=== PATIENT | female | born 1955 | race Caucasian/White ===

== ENCOUNTER 2016-11-11 12:06 | Emergency (ER) | payer OTHER ==
[~2016-11-11] VITALS: Ht 157.5 cm; Wt 78.2 kg
[2016-11-11 12:10] VITALS: Ht 157.5 cm; Wt 78.2 kg
[2016-11-11] MEDS ORDERED: METF1000 PO (12:47)
[2016-11-11] MEDS ORDERED: SPIR50TA PO (12:48)
[2016-11-11] MEDS ORDERED: LANT3I SC (12:48)
[2016-11-11 12:52] LABS: BASOPHIL # 0.1 10^3/ul (0.0-0.1); BASOPHILS % 0.7 % (0.0-2.0); EOSINOPHILS % 0.5 % (0.0-7.0); HEMATOCRIT 35.2 % (37.0-47.0); HEMOGLOBIN 11.9 g/dl (12.0-16.0); LYMPHOCYTES # 2.4 10^3/ul (0.8-2.9); LYMPHOCYTES % 25.3 % (15.0-51.0); MEAN CORPUSCULAR HEMOGLOBIN 33.3 pg (29.0-33.0); MEAN CORPUSCULAR HGB CONC 33.9 g/dl (32.0-37.0); MEAN CORPUSCULAR VOLUME 98.3 fl (82.0-101.0); MEAN PLATELET VOLUME 8.8 fl (7.4-10.4); MONOCYTE # 0.6 10^3/ul (0.3-0.9); MONOCYTES % 6.8 % (0.0-11.0); NEUTROPHIL # 6.3 10^3/ul (1.6-7.5); NEUTROPHILS % 66.7 % (39.0-77.0); PLATELET COUNT 62 10^3/UL (140-440); RED BLOOD COUNT 3.58 10^6/ul (4.20-5.40); RED CELL DISTRIBUTION WIDTH 24.9 % (11.5-14.5); UNCORRECTED WBC 9.5 10^3/ul (4.8-10.8); WHITE BLOOD COUNT 9.5 10^3/ul (4.8-10.8)
[2016-11-11] MEDS ORDERED: PRED5 PO (12:54)
[2016-11-11 12:56] LABS: ALBUMIN 2.3 g/dl (3.3-4.9)
[2016-11-11 12:57] LABS: POTASSIUM 4.2 mmol/L (3.5-5.1); PROTIME 22.9 Sec (12.2-14.2); PT RATIO 1.8
[2016-11-11 12:58] LABS: PARTIAL THROMBOPLASTIN TIME 30.5 Sec (25.0-35.0)
[2016-11-11 12:59] LABS: ALBUMIN/GLOBULIN RATIO 0.57; BILIRUBIN,INDIRECT 1.8 mg/dl (0-1.1); BILIRUBIN,TOTAL 1.8 mg/dl (0.2-1.3); CREATININE 0.64 mg/dl (0.44-1.00); TOTAL PROTEIN 6.3 g/dl (6.1-8.1)
[2016-11-11 13:00] LABS: CALCIUM 8.8 mg/dl (8.4-10.2); CONDITION 1; LH ANALYZER COMMENTS 1
[2016-11-11 13:45] LABS: ANISOCYTOSIS 3+
[2016-11-11] MEDS ORDERED: LIDOCAINE 1% (MPF) 5 ML VIAL ONE (16:23)
--- NOTE | 2016-11-11 16:25 | RADRPT ---
PROCEDURE: Ultrasound guided paracentesis. CLINICAL INDICATION: Ascites and shortness of breath. COMPARISON: No prior studies are available for comparison. TECHNIQUE: The risks, benefits, and alternatives were explained to the patient and/or the patient's family, inc luding but not limited to bleeding, infection, pain, visceral or vascular damage, shock, and . The patient and/or the patient's family understood the risks and the alternatives and wished to pro ceed with the procedure. Informed written consent was obtained. A procedural time out was performed . The patient's name, date of , and procedure to be performed were verified. Utilizing ultrasound guidance, optimal location for entry to the peritoneal cavity was ascertained. The overlying skin was prepped and draped in the usual sterile fashion. Approximately 10 ml of 1% Xylocaine was injected locally for pain control. Using ultrasound guidance, an 8 [place] catheter wa s introduced into the peritoneal cavity in the right lower quadrant without difficulty. FINDINGS: Initial images demonstrate ascites. Approximately 3.0 liters of serous fluid was aspirated and sent for laboratory analysis. The patient tolerated the procedure well without complication. IMPRESSION: 1. Successful ultrasound-guided paracentesis. RPTAT: QQ .Robbie Geller MD, Date Time Electronically viewed and signed by .Robbie Geller MD, on 11/11/2016 16:25 .R/
--- NOTE | 2016-11-11 16:52 | ERA ---
ER Documentation Chief Complaint Date/Time DATE: 11/11/16 TIME: 16:51 Chief Complaint here for paracenthesis, has " liver pain" HPI 61-year-old female history of autoimmune hepatitis and cirrhosis now with ascites who presents for abdominal distention. Her last paracentesis was approximately 3 weeks ago. The patient has had worsening abdominal bloating. She was sent to the emergency room for paracentesis. She gets her care at an outside hospital. They would like to send her fluid for cell count to rule out SBP but the patient denies any fevers, chills, abdominal pain. The patient otherwise has no complaints. ROS All systems reviewed and are negative except as per history of present illness. Medications Home Meds Active Scripts Metformin* (Glucophage*) 500 Mg Tab, 500 MG PO BID for 30 Days, #60 TAB Prov:ANAIS BLEVINS MD 11/11/16 Reported Medications Prednisone* (Prednisone*) 5 Mg Tab, 0 PO DAILY, TAB STARTED 10-30-16 40MG FOR 1 WEEK THEN 30MG FOR 1 WEEK THEN 20MG FOR 1 WEEK THEN 17.5MG FOR 1 WEEK THEN 15MG FOR 1 WEEK THEN 12.5MG FOR 1 WEEK THEN 10MG FOR 1 WEEK ALL ARE DAILY DOSES 11/11/16 Spironolactone* (Aldactone*) 50 Mg Tablet, 50 MG PO DAILY, #30 TAB 11/11/16 Insulin Glargine* (Lantus*) 100 Unit/Ml Soln, 15 UNIT SC QAM, #1 VIAL 11/11/16 Metformin Hcl* (Metformin Hcl*) 1,000 Mg Tablet, 1000 MG PO WITH LUNCH, #30 TAB 11/11/16 Allergies Allergies: Coded Allergies: No Known Allergy (Unverified , 11/11/16) PMhx/Soc History of Surgery: Yes (, Apendectomy ) Anesthesia Reaction: No Hx Neurological Disorder: No Hx Respiratory Disorders: No Hx Cardiac Disorders: Yes (HTN) Hx Miscellaneous Medical Probl: Yes (Live failure, autoimmune ) Hx Alcohol Use: No Hx Substance Use: No Hx Tobacco Use: No Smoking Status: Never smoker FmHx Family History: No diabetes Physical Exam Vitals Vital Signs Date Time Temp Pulse Resp B/P Pulse Ox O2 Delivery O2 Flow Rate FiO2 11/11/16 16:53 97.9 79 18 116/76 100 Room Air 11/11/16 15:20 97.6 73 16 103/73 100 Room Air 11/11/16 12:10 98.1 85 18 126/64 99 Physical Exam General: Well developed, well nourished, no acute distress Head: Normocephalic, atraumatic. Eyes: Pupils equally reactive, EOM intact ENT: Moist mucous membranes Neck: Supple, no lymphadenopathy Respiratory: Lungs clear bilaterally, no distress Cardiovascular: RRR, no murmurs, rubs, or gallops Abdominal: Soft, protuberant with fluid wave, no tenderness no rebound or guarding : Deferred MSK: No edema, no unilateral swelling, 5/5 strength Neurologic: Alert and oriented, moving all extremities, normal speech, no focal weakness, no cerebellar signs Skin: No rash Psych: Normal mood Result Diagram: 11/11/16 1235 11/11/16 1235 Results 24 hrs Laboratory Tests Test 11/11/16 12:35 11/11/16 16:00 Activated Partial Thromboplast Time 30.5Sec Alanine Aminotransferase (ALT/SGPT) 80IU/L Albumin 2.3g/dl Albumin/Globulin Ratio 0.57 Alkaline Phosphatase 318IU/L Anion Gap 12 Anisocytosis 3+ Aspartate Amino Transf (AST/SGOT) 81IU/L Basophils # 0.110^3/ul Basophils % 0.7% Blood Morphology Comment Blood Urea Nitrogen 19mg/dl Calcium Level 8.8mg/dl Carbon Dioxide Level 31mmol/L Chloride Level 95mmol/L Creatinine 0.64mg/dl Direct Bilirubin 0.00mg/dl Eosinophils # 0.010^3/ul Eosinophils % 0.5% Globulin 4.00g/dl Glucose Level 333mg/dl Hematocrit 35.2% Hemoglobin 11.9g/dl INR International Normalized Ratio 2.00 Indirect Bilirubin 1.8mg/dl Large Platelets FEW Lymphocytes # 2.410^3/ul Lymphocytes % 25.3% Mean Corpuscular Hemoglobin 33.3pg Mean Corpuscular Hemoglobin Concent 33.9g/dl Mean Corpuscular Volume 98.3fl Mean Platelet Volume 8.8fl Monocytes # 0.610^3/ul Monocytes % 6.8% Neutrophils # 6.310^3/ul Neutrophils % 66.7% Nucleated Red Blood Cells # 0.010^3/ul Nucleated Red Blood Cells % 0.0/100WBC Platelet Count 6210^3/UL Potassium Level 4.2mmol/L Prothrombin Time 22.9Sec Prothrombin Time Ratio 1.8 Red Blood Count 3.5810^6/ul Red Cell Distribution Width 24.9% Sodium Level 134mmol/L Total Bilirubin 1.8mg/dl Total Protein 6.3g/dl White Blood Count 9.510^3/ul Body Fluid Appearance CLEAR Body Fluid Color YELLOW Body Fluid Eosinophils % 1% Body Fluid Lymphocytes (%) 37% Body Fluid Monocytes % 42% Body Fluid Neutrophils % 20% Body Fluid RBC Body Fluid Type ASCITES Body Fluid Volume 1200.0ml Body Fluid WBC 191/cmm Current Medications Medications (Trade) Dose Ordered Sig/Rohit Route PRN Reason Start Time Stop Time Status Last Admin Dose Admin Lidocaine (Xylocaine 1% (Mpf)) 5 ml STK-MED ONCE .ROUTE 11/11/16 16:23 11/11/16 16:24 DC 11/11/16 16:25 Procedures/MDM EKG, MONITORS, & DIAGNOSTIC IMAGING: Large volume therapeutic paracentesis performed by interventional radiology. Neutrophil count less than 250 LAB INTERPRETATION: No significant coagulopathy noted. We do not have baseline labs for this patient. MEDICAL DECISION MAKING: The patient presents with abdominal ascites likely secondary to cirrhosis. Patient does not exhibit any signs or symptoms concerning for complications of cirrhosis such as GI bleed, hepatic encephalopathy or spontaneous bacterial peritonitis. There is no indication currently for diagnostic paracentesis. The patient will benefit from large volume therapeutic paracentesis by interventional radiology. If the patient remains stable without evidence of hemodynamic compromise secondary to fluid shifts the patient can be safely discharged home with close primary care and hepatology follow-up. ER COURSE: The patient had successful large volume therapeutic paracentesis. The patient remained hemodynamically stable and otherwise well-appearing. The patient is safe for discharge home. Neutrophil count less than 250, no evidence of SBP. Laboratory testing was printed off for follow-up with her primary care provider. I kept the patient and/or family informed of laboratory and diagnostic imaging results throughout the emergency room course. DISPOSITION PLAN: We discussed follow up with the patient's primary care doctor within 24 to 48 hours as needed. We also discussed return to the emergency room for worsening symptoms or worsening condition. Discharge Medications: None Departure Diagnosis: Primary Impression: Ascites Qualified Code: R18.8 - Other ascites Additional Impression: Autoimmune hepatitis Condition: Stable BORM, ANAIS A., MD Nov 11, 2016 16:52
[2016-11-11 18:08] LABS: FLUID APPEARANCE CLEAR; FLUID TYPE ASCITES
[2016-11-11 18:09] LABS: FLUID EOSINOPHIL 1 %; FLUID LYMPHOCYTES 37 %; FLUID MONOCYTES 42 %; FLUID NEUTROPHILS 20 %; FLUID WBC'S 191 /cmm
[2016-11-11] MEDS ORDERED: METF500T4 PO (18:19)
[2016-11-11 18:41] VITALS: BP 146/74; PULSE 65; RESP 19; TEMP 98.6
== END 2016-11-11 18:42 | disposition home or self-care (01) ==
LOC: E/R 12:06 → FTE 18:42
DX: R18.8 Other ascites (principal); I10 Essential (primary) hypertension; K75.4 Autoimmune hepatitis; Z79.4 Long term (current) use of insulin; Z79.84 Long term (current) use of oral hypoglycemic drugs
CPT/HCPCS: 36415; 80053; 85025; 85610; 85730; 87070; 87102; 87116; 89050; Z7502; Z7610

== ENCOUNTER 2016-11-14 11:42 | Emergency (ER) | payer OTHER ==
[~2016-11-14] VITALS: Wt 74.0 kg
[~2016-11-14 11:42] MED LIST: LANT3I SC; METF1000 PO; METF500T4 PO; PRED5 PO; SPIR50TA PO
[2016-11-14 16:21] LABS: EOSINOPHILS % 0.5 % (0.0-7.0); HEMATOCRIT 44.3 % (37.0-47.0); LYMPHOCYTES # 1.2 10^3/ul (0.8-2.9); LYMPHOCYTES % 12.6 % (15.0-51.0); MEAN CORPUSCULAR HEMOGLOBIN 33.7 pg (29.0-33.0); MEAN CORPUSCULAR HGB CONC 33.8 g/dl (32.0-37.0); MEAN CORPUSCULAR VOLUME 99.6 fl (82.0-101.0); MEAN PLATELET VOLUME 10.1 fl (7.4-10.4); MONOCYTE # 0.5 10^3/ul (0.3-0.9); MONOCYTES % 5.5 % (0.0-11.0); NEUTROPHILS % 81.4 % (39.0-77.0); PLATELET COUNT 71 10^3/UL (140-440); RED BLOOD COUNT 4.45 10^6/ul (4.20-5.40); RED CELL DISTRIBUTION WIDTH 24.8 % (11.5-14.5); UNCORRECTED WBC 9.8 10^3/ul (4.8-10.8); WHITE BLOOD COUNT 9.8 10^3/ul (4.8-10.8)
[2016-11-14 16:26] LABS: CONDITION 1; LH ANALYZER COMMENTS 1; SUSPECT 1
[2016-11-14 16:30] LABS: ADD UMIC YES; URINE BILIRUBIN (Dip) NEGATIVE (NEGATIVE); URINE BLOOD (Dip) NEGATIVE (NEGATIVE); URINE COLOR YELLOW (YELLOW); URINE GLUCOSE (Dip) >=1000 % (NEGATIVE); URINE KETONES (Dip) NEGATIVE (NEGATIVE); URINE LEUKOCYTE ESTERASE (Dip) TRACE (NEGATIVE); URINE NITRITE (Dip) NEGATIVE (NEGATIVE); URINE TOTAL PROTEIN (Dip) NEGATIVE (NEGATIVE); URINE UROBILINOGEN (Dip) 1.0 E.U./dL (0.1-1.0)
[2016-11-14 16:35] VITALS: BP 135/80; PULSE 85; RESP 20; TEMP 97.7
[2016-11-14 16:36] LABS: INR 1.67; PARTIAL THROMBOPLASTIN TIME 27.9 Sec (25.0-35.0); PROTIME 19.8 Sec (12.2-14.2); PT RATIO 1.5
[2016-11-14 16:55] LABS: BACTERIA,URINE MODERATE; SQUAMOUS EPITHELIAL CELL,UR MANY
[2016-11-14 16:56] LABS: URINE RBCS 0-2 /HPF (0)
[2016-11-14 17:06] LABS: PLATELET ESTIMATE PLT APPEAR DECREASED
[2016-11-14 17:36] LABS: ALBUMIN 2.6 g/dl (3.3-4.9)
[2016-11-14 17:37] LABS: POTASSIUM 5.5 mmol/L (3.5-5.1)
[2016-11-14 17:39] LABS: ALBUMIN/GLOBULIN RATIO 0.57; BILIRUBIN,DIRECT 0.2 mg/dl (0.00-0.20); BILIRUBIN,INDIRECT 1.7 mg/dl (0-1.1); BILIRUBIN,TOTAL 1.9 mg/dl (0.2-1.3); CREATININE 0.64 mg/dl (0.44-1.00); TOTAL PROTEIN 7.1 g/dl (6.1-8.1)
--- NOTE | 2016-11-14 18:00 | ERD ---
ER Documentation Chief Complaint Date/Time DATE: 11/14/16 TIME: 17:58 Chief Complaint PARACENTISIS AND BILATERAL LEG SWELLING HPI This is a 61-year-old female who presents to the emergency room for evaluation of mild abdominal pain after receiving a paracentesis approximately 3 days ago. The patient did have a paracentesis done at [facility] and is complaining of pain over her paracentesis site with mild drainage of clear fluid. The patient denies any trauma to the area, denies any nausea or vomiting associated with this and came to the ER for evaluation. ROS All systems reviewed and are negative except as per history of present illness. Medications Home Meds Active Scripts Metformin* (Glucophage*) 500 Mg Tab, 500 MG PO BID for 30 Days, #60 TAB Prov:ANAIS BLEVINS MD 11/11/16 Reported Medications Prednisone* (Prednisone*) 5 Mg Tab, 0 PO DAILY, TAB STARTED 10-30-16 40MG FOR 1 WEEK THEN 30MG FOR 1 WEEK THEN 20MG FOR 1 WEEK THEN 17.5MG FOR 1 WEEK THEN 15MG FOR 1 WEEK THEN 12.5MG FOR 1 WEEK THEN 10MG FOR 1 WEEK ALL ARE DAILY DOSES 11/11/16 Spironolactone* (Aldactone*) 50 Mg Tablet, 50 MG PO DAILY, #30 TAB 11/11/16 Insulin Glargine* (Lantus*) 100 Unit/Ml Soln, 15 UNIT SC QAM, #1 VIAL 11/11/16 Discontinued Reported Medications Metformin Hcl* (Metformin Hcl*) 1,000 Mg Tablet, 1000 MG PO WITH LUNCH, #30 TAB 11/11/16 Allergies Allergies: Coded Allergies: No Known Allergy (Unverified , 11/14/16) PMhx/Soc History of Surgery: Yes (, Apendectomy ) Anesthesia Reaction: No Hx Neurological Disorder: No Hx Respiratory Disorders: No Hx Cardiac Disorders: Yes (HTN) Hx Psychiatric Problems: No Hx Miscellaneous Medical Probl: Yes (Live failure, autoimmune ) Hx Alcohol Use: No Hx Substance Use: No Hx Tobacco Use: No Smoking Status: Never smoker Physical Exam Vitals Vital Signs Date Time Temp Pulse Resp B/P Pulse Ox O2 Delivery O2 Flow Rate FiO2 11/14/16 16:35 97.7 85 20 135/80 98 Room Air 11/14/16 11:45 98.0 78 18 115/68 99 Physical Exam INITIAL VITAL SIGNS: Reviewed by me GENERAL: The patient is well developed and appropriate for usual state of health in no apparent distress HEENT: Pupils equal, round, and reactive to light. EOMI. There is no scleral icterus. NECK: C-spine is soft and supple, there is no meningismus. There is no cervical lymphadenopathy. LUNGS: Clear to auscultation bilaterally. There are no rales, wheezes or rhonchi. HEART: Regular rate and rhythm, no murmurs, clicks, rubs or gallops. ABDOMEN: Small puncture wound over right lateral abdomen, no active drainage, soft, non-tender, non-distended. There are bowel sounds in all four quadrants. No rebound or guarding. EXTREMITIES: There is no peripheral cyanosis or edema. No focal swelling or erythema. NEUROLOGICAL: The patient moves all four extremities with 5/5 strength. Cranial nerves II - XII are intact. Normal gait. Alert and oriented SKIN: There is no apparent rash or petechiae. HEME/LYMPHATIC: There is no evidence of excessive bruising or lymphedema. PSYCHIATRIC: The patient does not appear anxious or depressed. Result Diagram: 11/14/16 1606 11/14/16 1650 Results 24 hrs Laboratory Tests Test 11/14/16 16:00 11/14/16 16:06 11/14/16 16:50 Urine Amorphous Urates FEW Urine Bacteria MODERATE Urine Bilirubin NEGATIVE Urine Calcium Oxalate Crystals FEW Urine Clarity CLOUDY Urine Color YELLOW Urine Glucose >=1000% Urine Hemoglobin NEGATIVE Urine Ketones NEGATIVE Urine Leukocyte Esterase TRACE Urine Microscopic RBC 0-2/HPF Urine Microscopic WBC 5-10/HPF Urine Nitrite NEGATIVE Urine Specific [place] 1.020 Urine Squamous Epithelial Cells MANY Urine Total Protein NEGATIVE Urine Urobilinogen 1.0 E.U./dL Urine Yeast OCCASIONAL Urine pH 6.0 Activated Partial Thromboplast Time 27.9Sec Basophils # 0.010^3/ul Basophils % 0.0% Blood Morphology Comment Eosinophils # 0.010^3/ul Eosinophils % 0.5% Hematocrit 44.3% Hemoglobin 15.0g/dl INR International Normalized Ratio 1.67 Lymphocytes # 1.210^3/ul Lymphocytes % 12.6% Macrocytosis 1+ Mean Corpuscular Hemoglobin 33.7pg Mean Corpuscular Hemoglobin Concent 33.8g/dl Mean Corpuscular Volume 99.6fl Mean Platelet Volume 10.1fl Monocytes # 0.510^3/ul Monocytes % 5.5% Neutrophils # 8.010^3/ul Neutrophils % 81.4% Nucleated Red Blood Cells # 0.010^3/ul Nucleated Red Blood Cells % 0.0/100WBC Platelet Count 7110^3/UL Platelet Estimate PLT APPEAR DECREASED Prothrombin Time 19.8Sec Prothrombin Time Ratio 1.5 Red Blood Count 4.4510^6/ul Red Cell Distribution Width 24.8% White Blood Count 9.810^3/ul Alanine Aminotransferase (ALT/SGPT) 95IU/L Albumin 2.6g/dl Albumin/Globulin Ratio 0.57 Alkaline Phosphatase 323IU/L Anion Gap 21 Aspartate Amino Transf (AST/SGOT) 106IU/L Blood Urea Nitrogen 17mg/dl Calcium Level 9.0mg/dl Carbon Dioxide Level 27mmol/L Chloride Level 95mmol/L Creatinine 0.64mg/dl Direct Bilirubin 0.20mg/dl Globulin 4.50g/dl Glucose Level 340mg/dl Indirect Bilirubin 1.7mg/dl Lipase 215U/L Potassium Level 5.5mmol/L Sodium Level 137mmol/L Total Bilirubin 1.9mg/dl Total Protein 7.1g/dl Procedures/MDM This 61-year-old female presents to the emergency room for evaluation of drainage from the paracentesis incision site. There is no surrounding area of cellulitis. I did obtain lab work which shows slightly low platelets which could be inhibiting her healing time. I spoke to the patient and the patient's daughter in regards to this. They state that they do get follow-up with a client server programmer at [facility]. I advised him to follow-up with her client server programmer then.. Departure Diagnosis: Primary Impression: Thrombocytopenia Additional Impression: Abdominal pain Condition: Stable SAIDEBRA SCHULTE Nov 14, 2016 18:00
== END 2016-11-14 18:27 | disposition home or self-care (01) ==
LOC: E/R 11:42
DX: D69.6 Thrombocytopenia, unspecified (principal); I10 Essential (primary) hypertension; Z79.84 Long term (current) use of oral hypoglycemic drugs; Z79.4 Long term (current) use of insulin
CPT/HCPCS: 36415; 80053; 81001; 83690; 85025; 85610; 85730; Z7502; Z7610; 81003; 99283

== ENCOUNTER 2016-12-10 10:55 | Emergency (ER) | payer OTHER ==
[~2016-12-10] VITALS: Wt 67.0 kg
[~2016-12-10 10:55] MED LIST changes: -METF1000 PO
[2016-12-10] MEDS ORDERED: FAMOTIDINE 20 MG INJ IV STA (14:23)
[2016-12-10] MEDS ORDERED: morphine 4 MG/ML VIAL IV STA ×2 (14:23→16:52)
[2016-12-10] MEDS ORDERED: ONDANSETRON 4 MG INJ IV STA (14:23)
[2016-12-10] MEDS ORDERED: SOD CHLORIDE 0.9% 500 ML IV STA (14:23)
[2016-12-10] MEDS ORDERED: LANT3I SC (14:45)
[2016-12-10] MEDS ORDERED: PRED2.5T3 PO (14:45)
[2016-12-10] MEDS ORDERED: MYCO500T13 PO (14:46)
[2016-12-10] MEDS ORDERED: SPIR25TA PO (14:46)
[2016-12-10 15:55] LABS: ADD SCAN DIFF NO
[2016-12-10 15:57] LABS: ABNORMAL IP MESSAGE 1; HEMATOCRIT 39.3 % (37.0-47.0); HEMOGLOBIN 13.9 g/dl (12.0-16.0); MEAN CORPUSCULAR HEMOGLOBIN 34.4 pg (29.0-33.0); MEAN CORPUSCULAR HGB CONC 35.4 g/dl (32.0-37.0); MEAN CORPUSCULAR VOLUME 97.3 fl (82.0-101.0); MEAN PLATELET VOLUME 10.2 fl (7.4-10.4); PLATELET COUNT 83 10^3/UL (140-415); RED BLOOD COUNT 4.04 10^6/ul (4.20-5.40); RED CELL DISTRIBUTION WIDTH 16.7 % (11.5-14.5); WHITE BLOOD COUNT 7.8 10^3/ul (4.8-10.8)
[2016-12-10 16:04] LABS: ADD UMIC YES; URINE BILIRUBIN (Dip) 1+ (NEGATIVE); URINE BLOOD (Dip) NEGATIVE (NEGATIVE); URINE COLOR YELLOW (YELLOW); URINE GLUCOSE (Dip) NEGATIVE (NEGATIVE); URINE KETONES (Dip) TRACE (NEGATIVE); URINE LEUKOCYTE ESTERASE (Dip) 1+ (NEGATIVE); URINE NITRITE (Dip) NEGATIVE (NEGATIVE); URINE TOTAL PROTEIN (Dip) NEGATIVE (NEGATIVE); URINE UROBILINOGEN (Dip) 0.2 E.U./dL (0.1-1.0)
[2016-12-10 16:10] LABS: ALBUMIN 2.6 g/dl (3.3-4.9)
[2016-12-10 16:12] LABS: CREATININE 0.79 mg/dl (0.44-1.00)
[2016-12-10 16:13] LABS: ALBUMIN/GLOBULIN RATIO 0.65; BILIRUBIN,INDIRECT 1.5 mg/dl (0-1.1); BILIRUBIN,TOTAL 1.5 mg/dl (0.2-1.3); CALCIUM 9.3 mg/dl (8.4-10.2); TOTAL PROTEIN 6.6 g/dl (6.1-8.1)
[2016-12-10 16:15] LABS: ICTOTEST NEGATIVE (NEGATIVE); URINE RBCS NONE SEEN /HPF (0)
[2016-12-10 16:16] LABS: BACTERIA,URINE MANY; SQUAMOUS EPITHELIAL CELL,UR MANY
[2016-12-10 16:27] LABS: EOSINOPHILS # 0.1 10^3/ul (0.0-0.5); LYMPHOCYTES # 0.8 10^3/ul (0.8-2.9); MONOCYTE # 0.2 10^3/ul (0.3-0.9); NEUTROPHIL # 6.8 10^3/ul (1.6-7.5)
[2016-12-10 16:28] LABS: PLATELET ESTIMATE PLT APPEAR DECREASED
--- NOTE | 2016-12-10 16:41 | RADRPT ---
PROCEDURE: CT abdomen and pelvis without contrast. CLINICAL INDICATION: Abdominal pain and nausea. Recent paracentesis TECHNIQUE: CT scan of the abdomen and pelvis without contrast was performed. Sagittal and coronal reformatted images were obtained from the axial source images. CTDI = 15.50 mGy; DLP = 931.60 mGy-c m COMPARISON: None. FINDINGS: Visualized lower thorax: Minimal linear subsegmental atelectasis or scarring in the lung bases is p resent. There is no evidence for pleural effusion. Liver, gallbladder, pancreas and spleen: Markedly nodular contour to the liver with heterogeneous a ttenuation is compatible with cirrhosis, a few punctate benign granulomatous calcifications througho ut the liver parenchyma are present. There is no evidence for a liver mass or ductal dilatation. C holelithiasis and gallbladder sludge is present. No common bile duct abnormality is demonstrated. The pancreas is unremarkable. The spleen is normal in size. Adrenal glands and genitourinary system: The adrenal glands are normal bilaterally. The kidneys are normal and size, contour and attenuation with no evidence for masses, calculi or hydronephrosis. T he ureters are unremarkable. No urinary bladder abnormality is demonstrated. The uterus and adnexa are unremarkable. Gastrointestinal system: A moderate size sliding hiatal hernia is present with some borderline georges miryam wall thickening unable to exclude gastritis. The small bowel is normal in caliber with no ileus , obstruction or wall thickening. There is no evidence of appendicitis, the appendix is not well vis ualized. The colon shows no evidence for wall thickening or acute abnormality. There is no evidenc e for colitis or diverticulitis. Peritoneum, retroperitoneum, lymph nodes and vessels: The abdominal aorta is normal in caliber. The re is moderate aortic and iliac atherosclerotic calcification. The inferior vena cava is unremarkab le. There is no evidence for adenopathy or mass. A moderate amount of ascites is present, predomin antly the perihepatic and perisplenic and location but also in the dependent portion of the pelvis. There is no evidence of pneumoperitoneum. Benign calcifications within the common to less likely re lated to granulomatous disease. Osseous structures and musculoskeletal findings: There is no fracture, lytic or blastic lesion. Deg enerative spondylosis and disk disease of the lower thoracic levels as noted. No muscular abnormalit y or soft tissue pathology is present. Incidental calcified injection granulomata of the gluteal reg ions are seen. Anterior midline abdominal infraumbilical scarring is suggestive of prior surgery. RPTAT:HJJR IMPRESSION: 1. Pattern consistent with cirrhosis of the liver with associated moderate ascites. 2. Cholelithiasis without CT evidence of cholecystitis. 3. Atherosclerotic calcification of the abdominal aorta and iliac systems. Physician Elisabeth Date Time Electronically viewed and signed by Roge Yeung Physician on 12/10/2016 16:41 JR/
[2016-12-10] MEDS ORDERED: CEFTRIAXONE 1 GM/50 ML (PMX) 50 ML IVPB STA (16:52)
[2016-12-10 17:00] VITALS: BP 108/72; PULSE 84; RESP 10
[2016-12-10] MEDS ORDERED: METOCLOPRAMIDE 10 MG INJ IV ONE (17:00)
--- NOTE | 2016-12-10 17:24 | ERD ---
ER Documentation Chief Complaint Date/Time DATE: 12/10/16 TIME: 17:24 Chief Complaint ABD PAIN FOR THE PAST FEW DAYS WITH LOOSE STOOL AND ABD DISTENTION . HPI This 61-year-old female presents to the emergency room for evaluation of abdominal pain and cramping for the past 2 days with mild diarrhea and mild distention in her abdomen. This patient denies any fevers or chills or any type of chest pain or shortness of breath. The patient denies any chest pain or palpitations and came to the emergency room today for evaluation ROS All systems reviewed and are negative except as per history of present illness. Medications Home Meds Active Scripts Ondansetron Hcl* (Zofran*) 4 Mg Tablet, 4 MG PO Q8, #10 TAB Prov:DEBRA GIBBS DO 12/10/16 Ciprofloxacin Hcl* (Ciprofloxacin Hcl*) 500 Mg Tablet, 500 MG PO BID, #14 TAB Prov:DEBRA GIBBS DO 12/10/16 Metformin* (Glucophage*) 500 Mg Tab, 500 MG PO BID for 30 Days, #60 TAB Prov:ANAIS BLEVINS MD 11/11/16 Reported Medications Mycophenolate Mofetil* (Cellcept*) 500 Mg Tablet, 500 MG PO DAILY, #60 TAB 12/10/16 Spironolactone* (Aldactone*) 25 Mg Tablet, 25 MG PO DAILY, #30 TAB 12/10/16 Prednisone* (Prednisone*) 2.5 Mg Tablet, 17.5 MG PO DAILY, TAB 12/10/16 Insulin Glargine* (Lantus*) 100 Unit/Ml Soln, 20 UNIT SC DAILY, #1 VIAL 12/10/16 Discontinued Reported Medications Prednisone* (Prednisone*) 5 Mg Tab, 0 PO DAILY, TAB STARTED 10-30-16 40MG FOR 1 WEEK THEN 30MG FOR 1 WEEK THEN 20MG FOR 1 WEEK THEN 17.5MG FOR 1 WEEK THEN 15MG FOR 1 WEEK THEN 12.5MG FOR 1 WEEK THEN 10MG FOR 1 WEEK ALL ARE DAILY DOSES 11/11/16 Spironolactone* (Aldactone*) 50 Mg Tablet, 50 MG PO DAILY, #30 TAB 11/11/16 Allergies Allergies: Coded Allergies: No Known Allergy (Unverified , 12/10/16) PMhx/Soc History of Surgery: Yes (, Apendectomy ) Anesthesia Reaction: No Hx Neurological Disorder: No Hx Respiratory Disorders: No Hx Cardiac Disorders: Yes (HTN) Hx Psychiatric Problems: No Hx Miscellaneous Medical Probl: Yes (Live failure, autoimmune ) Hx Alcohol Use: No Hx Substance Use: No Hx Tobacco Use: No Smoking Status: Never smoker Physical Exam Vitals Vital Signs Date Time Temp Pulse Resp B/P Pulse Ox O2 Delivery O2 Flow Rate FiO2 12/10/16 17:00 84 10 108/72 97 12/10/16 14:57 89 16 109/70 97 Room Air 12/10/16 11:06 98.9 112 20 108/70 98 Physical Exam INITIAL VITAL SIGNS: Reviewed by me GENERAL: The patient is well developed and appropriate for usual state of health in no apparent distress HEENT: Pupils equal, round, and reactive to light. EOMI. There is no scleral icterus. NECK: C-spine is soft and supple, there is no meningismus. There is no cervical lymphadenopathy. LUNGS: Clear to auscultation bilaterally. There are no rales, wheezes or rhonchi. HEART: Regular rate and rhythm, no murmurs, clicks, rubs or gallops. ABDOMEN: Suprapubic tenderness to palpation, otherwise soft, non-tender, non- distended. There are bowel sounds in all four quadrants. No rebound or guarding. EXTREMITIES: There is no peripheral cyanosis or edema. No focal swelling or erythema. NEUROLOGICAL: The patient moves all four extremities with 5/5 strength. Cranial nerves II - XII are intact. Normal gait. Alert and oriented SKIN: There is no apparent rash or petechiae. HEME/LYMPHATIC: There is no evidence of excessive bruising or lymphedema. PSYCHIATRIC: The patient does not appear anxious or depressed. Result Diagram: 12/10/16 1545 12/10/16 1545 Results 24 hrs Laboratory Tests Test 12/10/16 15:45 Alanine Aminotransferase (ALT/SGPT) 77IU/L Albumin 2.6g/dl Albumin/Globulin Ratio 0.65 Alkaline Phosphatase 193IU/L Anion Gap 19 Aspartate Amino Transf (AST/SGOT) 68IU/L Blood Urea Nitrogen 19mg/dl Calcium Level 9.3mg/dl Carbon Dioxide Level 30mmol/L Chloride Level 87mmol/L Creatinine 0.79mg/dl Direct Bilirubin 0.00mg/dl Eosinophils # 0.110^3/ul Eosinophils % 1.0% Globulin 4.00g/dl Glucose Level 130mg/dl Hematocrit 39.3% Hemoglobin 13.9g/dl Indirect Bilirubin 1.5mg/dl Lipase 85U/L Lymphocytes # 0.810^3/ul Lymphocytes % 10.0% Mean Corpuscular Hemoglobin 34.4pg Mean Corpuscular Hemoglobin Concent 35.4g/dl Mean Corpuscular Volume 97.3fl Mean Platelet Volume 10.2fl Monocytes # 0.210^3/ul Monocytes % 2.0% Neutrophils # 6.810^3/ul Neutrophils % 87.0% Platelet Count 8310^3/UL Platelet Estimate PLT APPEAR DECREASED Potassium Level 4.0mmol/L Red Blood Count 4.0410^6/ul Red Cell Distribution Width 16.7% Sodium Level 132mmol/L Total Bilirubin 1.5mg/dl Total Protein 6.6g/dl Urine Bacteria MANY Urine Bilirubin 1+ Urine Clarity [place] CLOUDY Urine Color YELLOW Urine Glucose NEGATIVE% Urine Hemoglobin NEGATIVE Urine Ictotest NEGATIVE Urine Ketones TRACE Urine Leukocyte Esterase 1+ Urine Microscopic RBC NONE SEEN/HPF Urine Microscopic WBC 25-50/HPF Urine Nitrite NEGATIVE Urine Specific [place] 1.020 Urine Squamous Epithelial Cells MANY Urine Total Protein NEGATIVE Urine Urobilinogen 0.2 E.U./dL Urine pH 5.5 White Blood Count 7.810^3/ul Current Medications Medications (Trade) Dose Ordered Sig/Rohit Route PRN Reason Start Time Stop Time Status Last Admin Dose Admin Sodium Chloride (NS) 500 ml @ 500 mls/hr Q1H STAT IV 12/10/16 14:23 12/10/16 15:22 DC 12/10/16 16:31 Morphine Sulfate (morphine) 4 mg ONCE STAT IV 12/10/16 14:23 12/10/16 14:24 DC 12/10/16 15:30 Ondansetron HCl (Zofran Inj) 4 mg ONCE STAT IV 12/10/16 14:23 12/10/16 14:24 DC 12/10/16 15:30 Famotidine 20 mg 20 mg ONCE STAT IV 12/10/16 14:23 12/10/16 14:25 DC 12/10/16 15:30 Ceftriaxone Sodium (Rocephin) 50 ml @ 100 mls/hr ONCE STAT IVPB 12/10/16 16:52 12/10/16 17:21 DC 12/10/16 17:00 Metoclopramide HCl (Reglan) 10 mg ONCE ONCE IV 12/10/16 17:00 12/10/16 17:01 DC 12/10/16 17:00 Morphine Sulfate (morphine) 4 mg ONCE STAT IV 12/10/16 16:52 12/10/16 16:53 DC 12/10/16 17:00 Procedures/MDM CT abdomen pelvis without: 1. Pattern consistent with cirrhosis of the liver with associated moderate ascites. 2. Cholelithiasis without CT evidence of cholecystitis. 3. Atherosclerotic calcification of the abdominal aorta and iliac systems. This 61-year-old presents to the emergency room for evaluation of abdominal cramping and discomfort. She has suprapubic tenderness to palpation on my examination. She does have urinary tract infection which she received Rocephin for here in the emergency room. The patient also had Zofran and Reglan with resolution of her vomiting. This patient will be discharged home with a prescription for ciprofloxacin, and Zofran. Departure Diagnosis: Primary Impression: Abdominal pain Additional Impression: Acute cystitis Condition: Stable DEBRA GIBBS DO Dec 10, 2016 17:24
[2016-12-10] MEDS ORDERED: CIPR500T4 PO (17:32)
[2016-12-10] MEDS ORDERED: ONDA4TAB8 PO (17:32)
[2016-12-10] MEDS ORDERED: METF500T4 PO (17:56)
== END 2016-12-10 17:52 | disposition home or self-care (01) ==
LOC: E/R 10:55
DX: R10.30 Lower abdominal pain, unspecified (principal); N30.00 Acute cystitis without hematuria; I10 Essential (primary) hypertension; R40.2142 Coma scale, eyes open, spontaneous, at arrival to emergency department; R40.2362 Coma scale, best motor response, obeys commands, at arrival to emergency department; R40.2252 Coma scale, best verbal response, oriented, at arrival to emergency department; Z79.4 Long term (current) use of insulin; Z79.84 Long term (current) use of oral hypoglycemic drugs
CPT/HCPCS: 74176; 80053; 81001; 83690; 85025; J0696; J2270; J2405; J2765; J7040; Z7610; 36415; 81003; 96374; 96375; 96376

== ENCOUNTER 2017-02-09 10:00 | Emergency (ER) | payer OTHER ==
[~2017-02-09] VITALS: Ht 152.4 cm; Wt 67.5 kg
[~2017-02-09 10:00] MED LIST changes: +CIPR500T4 PO; +MYCO500T13 PO; +ONDA4TAB8 PO; +PRED2.5T3 PO; -PRED5 PO; +SPIR25TA PO; -SPIR50TA PO
[2017-02-09 10:04] VITALS: Ht 152.4 cm; Wt 67.5 kg
[2017-02-09] MEDS ORDERED: HYDROmorphONE 1 MG/ML SYG IV STA (10:50)
[2017-02-09] MEDS ORDERED: SOD CHLORIDE 0.9% 500 ML IV STA (10:50)
[2017-02-09] MEDS ORDERED: ONDANSETRON 4 MG INJ IV STA ×3 (10:50→16:00)
[2017-02-09 11:51] LABS: ADD SCAN DIFF NO
[2017-02-09 11:58] LABS: BASOPHILS % 0.8 % (0.0-2.0); EOSINOPHILS % 0.8 % (0.0-7.0); HEMATOCRIT 34.3 % (37.0-47.0); HEMOGLOBIN 11.4 g/dl (12.0-16.0); LYMPHOCYTES # 1.6 10^3/ul (0.8-2.9); LYMPHOCYTES % 31.6 % (15.0-51.0); MEAN CORPUSCULAR HGB CONC 33.2 g/dl (32.0-37.0); MEAN CORPUSCULAR VOLUME 102.4 fl (82.0-101.0); MEAN PLATELET VOLUME 10.1 fl (7.4-10.4); MONOCYTE # 0.6 10^3/ul (0.3-0.9); MONOCYTES % 12.4 % (0.0-11.0); NEUTROPHIL # 2.7 10^3/ul (1.6-7.5); PLATELET COUNT 105 10^3/UL (140-415); RED BLOOD COUNT 3.35 10^6/ul (4.20-5.40); RED CELL DISTRIBUTION WIDTH 15.6 % (11.5-14.5)
[2017-02-09 12:20] LABS: ALBUMIN 2.2 g/dl (3.3-4.9)
[2017-02-09 12:21] LABS: POTASSIUM 3.9 mmol/L (3.5-5.1)
[2017-02-09 12:23] LABS: ALBUMIN/GLOBULIN RATIO 0.61; CREATININE 0.51 mg/dl (0.44-1.00); TOTAL PROTEIN 5.8 g/dl (6.1-8.1)
[2017-02-09 12:24] LABS: CALCIUM 8.3 mg/dl (8.4-10.2)
--- NOTE | 2017-02-09 12:24 | EN ---
Date/Time of Note Date/Time of Note DATE: 02/09/17 TIME: 12:19 ER Progress Note Ultrasound-guided peripheral IV note: Indication: Staff unable to obtain IV access suitable for contrast scan. Area was cleaned with alcohol: Ultrasound guidance was used to find the right basilic vein and easily inserted and extended 18-gauge angiocatheter into the vein. One attempt was made. Patient tolerated procedure well there no complications. There was good blood flow in the IV flushed well. BECKIE PUCKETT DO February 09, 2017 12:24
[2017-02-09] MEDS ORDERED: SPIR50TA PO (12:33)
[2017-02-09] MEDS ORDERED: FURO20TA3 PO (12:34)
[2017-02-09] MEDS ORDERED: LACT20SO2 PO (12:35)
[2017-02-09] MEDS ORDERED: METF500T4 PO (12:40)
[2017-02-09] MEDS ORDERED: SOD CHLORIDE 0.9% 500 ML IV ONE (13:00)
[2017-02-09 13:19] LABS: ADD UMIC YES; URINE BILIRUBIN (Dip) NEGATIVE (NEGATIVE); URINE BLOOD (Dip) NEGATIVE (NEGATIVE); URINE COLOR YELLOW (YELLOW); URINE GLUCOSE (Dip) NEGATIVE (NEGATIVE); URINE KETONES (Dip) NEGATIVE (NEGATIVE); URINE LEUKOCYTE ESTERASE (Dip) 1+ (NEGATIVE); URINE NITRITE (Dip) NEGATIVE (NEGATIVE); URINE TOTAL PROTEIN (Dip) NEGATIVE (NEGATIVE); URINE UROBILINOGEN (Dip) 2.0 E.U./dL (0.1-1.0)
[2017-02-09] MEDS ORDERED: IOHEXOL 300MG/ML 150 ML BTL ONE (13:34)
[2017-02-09] MEDS ORDERED: SOD CHLORIDE 0.9% 100 ML ONE (13:34)
--- NOTE | 2017-02-09 13:47 | ERA ---
ER Documentation Chief Complaint Date/Time DATE: 02/09/17 TIME: 13:45 Chief Complaint decreased amount of urine output x 1 week and back pain, mai leg swelling, HPI This is a 61-year-old female who complains of 5-6 days of right abdominal pain described as crampy and sharp at times. The pain is located in the right upper quadrant and right lower quadrant with radiation to the right mid back. The patient says her gallbladder is removed. The patient says she has liver problems and the pain is from that. She says she does not know what is wrong with her liver denies having hepatitis. The patient also says she is having some dysuria and that she has had decreased urinary output over the past 2 days. No nausea vomiting diarrhea no fever cough chest pain or difficulty breathing. ROS All systems reviewed and are negative except as per history of present illness. Medications Home Meds Active Scripts Ondansetron (Ondansetron Odt) 4 Mg Tab.rapdis, 4 MG PO Q6H Y for NAUSEA AND/OR VOMITING, #10 TAB Prov:RYAN WEBB DO 02/09/17 Hydrocodone/Acetaminophen ([place] 10-325 Tablet) 1 Each Tablet, 1 TAB PO Q6H Y for PAIN, #20 TAB Prov:RYAN WEBB DO 02/09/17 Dicyclomine Hcl* (Bentyl*) 10 Mg Capsule, 20 MG PO QID, #30 CAP Prov:RYAN WEBB DO 02/09/17 Reported Medications Metformin* (Glucophage*) 500 Mg Tab, 500 MG PO BID, #90 TAB 02/09/17 Lactulose* (Lactulose*) 20 Gm/30 Ml Solution, 20 GM PO DAILY Y for CONSTIPATION , ML 02/09/17 Furosemide* (Furosemide*) 20 Mg Tablet, 20 MG PO DAILY, #60 TAB 02/09/17 Spironolactone* (Aldactone*) 50 Mg Tablet, 50 MG PO DAILY, #30 TAB 02/09/17 Mycophenolate Mofetil* (Cellcept*) 500 Mg Tablet, 500 MG PO TID, #60 TAB 12/10/16 Insulin Glargine* (Lantus*) 100 Unit/Ml Soln, 20 UNIT SC DAILY, #1 VIAL 12/10/16 Discontinued Reported Medications Spironolactone* (Aldactone*) 25 Mg Tablet, 25 MG PO DAILY, #30 TAB 12/10/16 Prednisone* (Prednisone*) 2.5 Mg Tablet, 17.5 MG PO DAILY, TAB 12/10/16 Discontinued Scripts Metformin* (Glucophage*) 500 Mg Tab, 500 MG PO BID, #60 TAB Prov:DEBRA GIBBS DO 12/10/16 Ondansetron Hcl* (Zofran*) 4 Mg Tablet, 4 MG PO Q8, #10 TAB Prov:DEBRA GIBBS DO 12/10/16 Ciprofloxacin Hcl* (Ciprofloxacin Hcl*) 500 Mg Tablet, 500 MG PO BID, #14 TAB Prov:DEBRA GIBBS DO 12/10/16 Metformin* (Glucophage*) 500 Mg Tab, 500 MG PO BID for 30 Days, #60 TAB Prov:ANAIS BLEVINS MD 11/11/16 Allergies Allergies: Coded Allergies: No Known Allergy (Unverified , 12/10/16) PMhx/Soc History of Surgery: Yes (, Apendectomy ) Anesthesia Reaction: No Hx Neurological Disorder: No Hx Respiratory Disorders: No Hx Cardiac Disorders: Yes (HTN) Hx Psychiatric Problems: No Hx Miscellaneous Medical Probl: Yes (Live failure, autoimmune ) Hx Alcohol Use: No Hx Substance Use: No Hx Tobacco Use: No Smoking Status: Never smoker FmHx Family History: No coronary disease Physical Exam Vitals Vital Signs Date Time Temp Pulse Resp B/P Pulse Ox O2 Delivery O2 Flow Rate FiO2 02/09/17 12:55 78 18 85/56 100 Room Air 02/09/17 10:04 98.2 98 20 107/65 100 Physical Exam Const: Well-developed, well-nourished Head: Atraumatic, normocephalic Eyes: Normal Conjunctiva, PERRLA, EOMI, normal sclera, no nystagmus ENT: Normal External Ears, Nose and Mouth, moist mucus membranes. Neck: Full range of motion. No meningismus, no lymphadenopathy. Resp: Clear to auscultation bilaterally, no wheezing, rhonchi, rales Cardio: Regular rate and rhythm, no murmurs, S1 S2 present Abd: Soft, mild to moderate tenderness in the right upper and lower quadrant, non distended. Normal bowel sounds, no guarding or rebound, no pulsitile abdominal masses or bruits Skin: No petechiae or rashes, no ecchymosis , no maculopapular rash Back: No midline or flank tenderness Ext: No cyanosis, or edema, FROM x 4, normal inspection, neurovascularly intact x 4 Neur: Awake and alert, STR 5/5 x 4, sensation intact x 4, no focal findings, cerebellum intact Psych: Normal Mood and Affect Result Diagram: 02/09/17 1120 02/09/17 1120 Results 24 hrs Laboratory Tests Test 02/09/17 11:20 02/09/17 12:22 White Blood Count 5.010^3/ul Red Blood Count 3.3510^6/ul Hemoglobin 11.4g/dl Hematocrit 34.3% Mean Corpuscular Volume 102.4fl Mean Corpuscular Hemoglobin 34.0pg Mean Corpuscular Hemoglobin Concent 33.2g/dl Red Cell Distribution Width 15.6% Platelet Count 19709^3/UL Mean Platelet Volume 10.1fl Neutrophils % 54.0% Lymphocytes % 31.6% Monocytes % 12.4% Eosinophils % 0.8% Basophils % 0.8% Nucleated Red Blood Cells % 0.0/100WBC Neutrophils # 2.710^3/ul Lymphocytes # 1.610^3/ul Monocytes # 0.610^3/ul Eosinophils # 0.010^3/ul Basophils # 0.010^3/ul Nucleated Red Blood Cells # 0.010^3/ul Sodium Level 134mmol/L Potassium Level 3.9mmol/L Chloride Level 98mmol/L Carbon Dioxide Level 26mmol/L Anion Gap 14 Blood Urea Nitrogen 11mg/dl Creatinine 0.51mg/dl Glucose Level 144mg/dl Calcium Level 8.3mg/dl Total Bilirubin 1.0mg/dl Direct Bilirubin 0.00mg/dl Indirect Bilirubin 1.0mg/dl Aspartate Amino Transf (AST/SGOT) 53IU/L Alanine Aminotransferase (ALT/SGPT) 35IU/L Alkaline Phosphatase 144IU/L Total Protein 5.8g/dl Albumin 2.2g/dl Globulin 3.60g/dl Albumin/Globulin Ratio 0.61 Lipase 170U/L Urine Color YELLOW Urine Clarity SLIGHTLY CLOUDY Urine pH 5.5 Urine Specific Chunky 1.020 Urine Ketones NEGATIVE Urine Nitrite NEGATIVE Urine Bilirubin NEGATIVE Urine Urobilinogen 2.0 E.U./dL Urine Leukocyte Esterase 1+ Urine Microscopic RBC NONE SEEN/HPF Urine Microscopic WBC 2-5/HPF Urine Epithelial Cells MODERATE Urine Bacteria FEW Urine Mucus FEW Urine Hemoglobin NEGATIVE Urine Glucose NEGATIVE% Urine Total Protein NEGATIVE Current Medications Medications (Trade) Dose Ordered Sig/Rohit Route PRN Reason Start Time Stop Time Status Last Admin Dose Admin Sodium Chloride (NS) 500 ml @ 500 mls/hr Q1H STAT IV 02/09/17 10:50 02/09/17 11:49 DC 02/09/17 12:05 Hydromorphone HCl (Dilaudid) 1 mg ONCE STAT IV 02/09/17 10:50 02/09/17 10:52 DC 02/09/17 12:05 Ondansetron HCl 4 mg 4 mg ONCE STAT IV 02/09/17 10:50 02/09/17 10:52 DC 02/09/17 12:05 Sodium Chloride (NS) 500 ml @ 500 mls/hr Q1H ONCE IV 02/09/17 13:00 02/09/17 13:59 DC 02/09/17 12:58 IV Flush 10 ml 10 ml STK-MED ONCE .ROUTE 02/09/17 13:34 02/09/17 13:35 DC 02/09/17 14:05 Sodium Chloride (NS) 100 ml @ ud STK-MED ONCE .ROUTE 02/09/17 13:34 02/09/17 13:35 DC 02/09/17 14:05 Iohexol (Omnipaque 300mg/ ml) 150 ml STK-MED ONCE .ROUTE 02/09/17 13:34 02/09/17 13:35 DC 02/09/17 14:05 Ondansetron HCl (Zofran Inj) 4 mg ONCE STAT IV 02/09/17 13:53 02/09/17 13:54 DC 02/09/17 13:56 Procedures/MDM After reviewing old CT scans the patient apparently still does have her gallbladder and does have gallstones and CT scan demonstrated CT evidence of stones but no evidence of cholecystitis on her last visit here in October for right upper quadrant pain. Her LFTs are not significant on today's examination. Her CT scan has been done but is currently pending. The CAT scan is normal we will discharge her home with presumed biliary colic explaining her right upper quadrant pain with right back radiation. PROCEDURE: CT Abdomen and pelvis without contrast. CLINICAL INDICATION: Abdominal pain. Decreased urine output. TECHNIQUE: CT scan of the abdomen and pelvis without contrast was performed on a multidetector high-resolution CT scan. . Coronal and sagittal reformatted images were obtained from the axial source images. Standard CT scan of the abdomen pelvis without contrast protocols were performed. The total exam CTDI equals 13.87 mGy and the total exam DLP equals 772.74 mGy- cm. One or more of the following dose reduction techniques were used: - Automated exposure control. - Adjustment of the mA and/or kV according to patient size. Use of iterative reconstruction technique. COMPARISON: CT abdomen pelvis without contrast 12/10/2016 FINDINGS: Again noted is a cirrhotic liver. Note that there is extensive heterogeneity of the hepatic parenchymal density with large areas of low density which may all be secondary to cirrhosis however underlying malignancy such as a hepatic cellular carcinoma should be excluded. Recommend alpha-fetoprotein and follow- up CT scan of the abdomen with and without contrast for further evaluation. Again noted are calcifications within the liver consistent with old granulomatous disease. Again noted are numerous calcified gallstones. No definite gallbladder wall thickening. No evidence biliary ductal dilation. The spleen is normal in size without focal splenic lesions. The adrenal glands and kidneys are unremarkable. No hydronephrosis bilaterally. The urinary bladder is unremarkable. Stay again noted is moderate abdominal and pelvic ascites without localized fluid collection to suggest abscess. Negative for free air. No evidence of abdominopelvic lymphadenopathy. Again noted is a moderate hiatal hernia. Gastric wall thickening may relate to lack of optimal distension however gastritis should be excluded. The small large bowel are unremarkable. The appendix is not visualized that there is no CT evidence of appendicitis. The uterus is anteverted but otherwise unremarkable. No adnexal masses. There is atherosclerotic vascular disease without aneurysm. There is mild bibasilar parenchymal scarring. The lung bases are otherwise unremarkable. There is coronary artery disease present. There is degenerative changes lower thoracic and lumbar spine. There are no acute osseous findings or osteoblastic/osteolytic lesions. IMPRESSION: 1. No significant change from a CT and pelvis 12/10/2016. 2. Cirrhosis. There is extensive heterogeneity of the hepatic parenchyma with large areas of low density which may all be due to cirrhosis however an underlying neoplasm such as hepatic cellular carcinoma should be considered. Recommend alpha-fetoprotein and follow-up CT scan of the pelvis with without contrast for further evaluation. 3. Numerous calcified gallstones without gallbladder wall thickening or biliary ductal dilation. 4. Moderate ascites without abscess or free air. 5. Moderate hiatal hernia. Gastric wall thickening may relate to lack of optimal distension however gastritis should be excluded. RPTAT:AAJJ Physician Oracio Date Time Electronically viewed and signed by Gina Acevedo Physician on 02/09/2017 14:54 BM/ CC: RYAN WEBB DO Departure Diagnosis: Primary Impression: Right upper quadrant pain Additional Impressions: Biliary colic Gallstone Qualified Code: K80.20 - Calculus of gallbladder without cholecystitis without obstruction Condition: Stable RYAN WEBB DO February 09, 2017 13:47
[2017-02-09 13:50] LABS: BACTERIA,URINE FEW; MUCUS,URINE FEW; URINE RBCS NONE SEEN /HPF (0)
--- NOTE | 2017-02-09 14:55 | RADRPT ---
PROCEDURE: CT Abdomen and pelvis without contrast. CLINICAL INDICATION: Abdominal pain. Decreased urine output. TECHNIQUE: CT scan of the abdomen and pelvis without contrast was performed on a multidetector hig h-resolution CT scan. . Coronal and sagittal reformatted images were obtained from the axial [facility] e images. Standard CT scan of the abdomen pelvis without contrast protocols were performed. The total exam CTDI equals 13.87 mGy and the total exam DLP equals 772.74 mGy-cm. One or more of the following dose reduction techniques were used: - Automated exposure control. - Adjustment of the mA and/or kV according to patient size. Use of iterative reconstruction technique. COMPARISON: CT abdomen pelvis without contrast 12/10/2016 FINDINGS: Again noted is a cirrhotic liver. Note that there is extensive heterogeneity of the hepatic parench ymal density with large areas of low density which may all be secondary to cirrhosis however underly ing malignancy such as a hepatic cellular carcinoma should be excluded. Recommend alpha-fetoprotein and follow-up CT scan of the abdomen with and without contrast for further evaluation. Again noted are calcifications within the liver consistent with old granulomatous disease. Again noted are numerous calcified gallstones. No definite gallbladder wall thickening. No evidenc e biliary ductal dilation. The spleen is normal in size without focal splenic lesions. The adrenal glands and kidneys are unre markable. No hydronephrosis bilaterally. The urinary bladder is unremarkable. Stay again noted is moderate abdominal and pelvic ascites without localized fluid collection to sugg est abscess. Negative for free air. No evidence of abdominopelvic lymphadenopathy. Again noted is a moderate hiatal hernia. Gastric wall thickening may relate to lack of optimal dist ension however gastritis should be excluded. The small large bowel are unremarkable. The appendix is not visualized that there is no CT evidence of appendicitis. The uterus is anteverted but otherwise unremarkable. No adnexal masses. There is atherosclerotic v ascular disease without aneurysm. There is mild bibasilar parenchymal scarring. The lung bases are otherwise unremarkable. There is coronary artery disease present. There is degenerative changes lower thoracic and lumbar spine. There are no acute osseous findings or osteoblastic/osteolytic lesions. IMPRESSION: 1. No significant change from a CT and pelvis 12/10/2016. 2. Cirrhosis. There is extensive heterogeneity of the hepatic parenchyma with large areas of low d ensity which may all be due to cirrhosis however an underlying neoplasm such as hepatic cellular car cinoma should be considered. Recommend alpha-fetoprotein and follow-up CT scan of the pelvis with w ithout contrast for further evaluation. 3. Numerous calcified gallstones without gallbladder wall thickening or biliary ductal dilation. 4. Moderate ascites without abscess or free air. 5. Moderate hiatal hernia. Gastric wall thickening may relate to lack of optimal distension howeve r gastritis should be excluded. RPTAT:AAJJ Physician Oracio Date Time Electronically viewed and signed by Gina Acevedo Physician on 02/09/2017 14:54 BM/
[2017-02-09] MEDS ORDERED: ONDA4TAB14 PO (14:57)
[2017-02-09] MEDS ORDERED: HYDR-902 PO (14:57)
[2017-02-09] MEDS ORDERED: DICY10CA60 PO (14:57)
[2017-02-09] MEDS ORDERED: MECL12.574 PO (15:07)
[2017-02-09] MEDS ORDERED: SOD CHLORIDE 0.9% 1,000 ML IV ONE (15:30)
[2017-02-09 16:50] VITALS: BP 98/65; PULSE 81; RESP 19; TEMP 98.2
== END 2017-02-09 17:02 | disposition home or self-care (01) ==
LOC: E/R 10:00
DX: R10.11 Right upper quadrant pain (principal); R40.2252 Coma scale, best verbal response, oriented, at arrival to emergency department; K80.70 Calculus of gallbladder and bile duct without cholecystitis without obstruction; I10 Essential (primary) hypertension; R40.2142 Coma scale, eyes open, spontaneous, at arrival to emergency department; R40.2362 Coma scale, best motor response, obeys commands, at arrival to emergency department; Z79.4 Long term (current) use of insulin
CPT/HCPCS: 74176; 80053; 81001; 83690; 85025; J1170; J2405; J7030; J7040; Q9967; Z7610; 81003

== ENCOUNTER 2017-02-27 14:54 | Inpatient (IN) | payer OTHER ==
[~2017-02-27] VITALS: Ht 157.5 cm; Wt 84.5 kg
[~2017-02-27 14:54] MED LIST changes: -CIPR500T4 PO; +DICY10CA60 PO; +FURO20TA3 PO; +HYDR-902 PO; +LACT20SO2 PO; +MECL12.574 PO; +ONDA4TAB14 PO; -ONDA4TAB8 PO; -PRED2.5T3 PO; -SPIR25TA PO; +SPIR50TA PO
[2017-02-27] MEDS ORDERED: SOD CHLORIDE 0.9% 1,000 ML IV STA ×3 (15:27→19:26)
[2017-02-27] MEDS ORDERED: ONDANSETRON 4 MG INJ IV STA (15:27)
[2017-02-27] MEDS ORDERED: morphine 4 MG/ML VIAL IV STA (15:27)
[2017-02-27 15:52] LABS: ADD SCAN DIFF NO
[2017-02-27 15:56] LABS: BASOPHILS % 0.5 % (0.0-2.0); EOSINOPHILS % 0.1 % (0.0-7.0); HEMATOCRIT 36.8 % (37.0-47.0); HEMOGLOBIN 12.7 g/dl (12.0-16.0); LYMPHOCYTES % 26.4 % (15.0-51.0); MEAN CORPUSCULAR HEMOGLOBIN 33.8 pg (29.0-33.0); MEAN CORPUSCULAR HGB CONC 34.5 g/dl (32.0-37.0); MEAN CORPUSCULAR VOLUME 97.9 fl (82.0-101.0); MEAN PLATELET VOLUME 9.6 fl (7.4-10.4); MONOCYTE # 0.6 10^3/ul (0.3-0.9); MONOCYTES % 8.3 % (0.0-11.0); NEUTROPHIL # 4.8 10^3/ul (1.6-7.5); NEUTROPHILS % 64.4 % (39.0-77.0); PLATELET COUNT 137 10^3/UL (140-415); RED BLOOD COUNT 3.76 10^6/ul (4.20-5.40); RED CELL DISTRIBUTION WIDTH 14.4 % (11.5-14.5); WHITE BLOOD COUNT 7.5 10^3/ul (4.8-10.8)
[2017-02-27 16:11] LABS: INR 1.43; PROTIME 17.5 Sec (12.2-14.2); PT RATIO 1.4
[2017-02-27 16:12] LABS: PARTIAL THROMBOPLASTIN TIME 30.3 Sec (25.0-35.0)
[2017-02-27 16:14] LABS: ALANINE AMINOTRANSFERASE 36 IU/L (13-69); ALBUMIN 3.1 g/dl (3.3-4.9); ALBUMIN/GLOBULIN RATIO 0.88; ALKALINE PHOSPHATASE 139 IU/L (42-121); ANION GAP 12 (8-16); ASPARTATE AMINO TRANSFERASE 53 IU/L (15-46); BILIRUBIN,INDIRECT 1.7 mg/dl (0-1.1); BILIRUBIN,TOTAL 1.7 mg/dl (0.2-1.3); BLOOD UREA NITROGEN 11 mg/dl (7-20); CALCIUM 8.4 mg/dl (8.4-10.2); CARBON DIOXIDE 27 mmol/L (21-31); CHLORIDE 100 mmol/L (97-110); CREATININE 0.69 mg/dl (0.44-1.00); GLUCOSE 95 mg/dl (70-220); POTASSIUM 3.9 mmol/L (3.5-5.1); SODIUM 135 mmol/L (135-144); TOTAL PROTEIN 6.6 g/dl (6.1-8.1)
[2017-02-27 16:30] LABS: TROPONIN-I < 0.012 ng/ml (0.00-0.12)
--- NOTE | 2017-02-27 16:54 | RADRPT ---
PROCEDURE: Right upper quadrant abdominal ultrasound. CLINICAL INDICATION: Abdominal pain TECHNIQUE: Mercado scale and color doppler ultrasound images of the right upper quadrant. COMPARISON: CT abdomen 02/27/2017 FINDINGS: Pancreas: Not adequately visualized due to overlying bowel gas. Liver: Morphology: Nodular liver contour. Liver measures 11.5 cm. Echogenicity: Coarsened hepatic echotexture. Focal lesions: None. Main portal vein: Patent with hepatopetal flow. Biliary System: Normal appearing gallbladder wall. No gallstones seen. No intrahepatic biliary dilatation. Common bile duct not identified by the [facility] house supervisor. Kidneys: Right 10.5 cm in length. Right renal cortical thickness is preserved. Normal echogenicity. No hydronephrosis. No renal calculi. No focal lesions. Moderate ascites again observed. IMPRESSION: Moderate ascites. Cirrhotic liver without evidence of definite focal lesion. Normal gallbladder without gallstones. No intrahepatic biliary dilatation. Extrahepatic biliary sy stem not visualized. RPTAT: AADD .Haroldo Gongora MD, MD Date Time Electronically viewed and signed by .Haroldo Gongora MD, on 02/27/2017 16:54 .B/
--- NOTE | 2017-02-27 17:24 | RADRPT ---
PROCEDURE: CT Abdomen and Pelvis without contrast. CLINICAL INDICATION: Abdominal pain. TECHNIQUE: CT scan of the abdomen and pelvis without contrast was performed on a multidetector hig h-resolution CT scanner. Coronal and sagittal reformatted images were obtained from the axial [facility] e images. Images were reviewed on a high-resolution PACS workstation. The total exam CTDI equals 10. 5 mGy and the total exam DLP equals 589 mGy-cm. COMPARISON: 02/09/2017 FINDINGS: Visualized lower thorax: Mild linear subsegmental atelectasis or scarring in the lung bases is prese nt. There is no evidence for pleural effusion. Liver, gallbladder, pancreas and spleen: Markedly nodular contour to the liver with heterogeneous at tenuation is compatible with cirrhosis, a few punctate benign granulomatous calcifications throughou t the liver parenchyma are present. Density of liver is very heterogeneous. Evaluation is limited s econdary to lack of IV contrast. There is no evidence of ductal dilatation. Cholelithiasis and gall bladder sludge is present. No common bile duct abnormality is demonstrated. The pancreas is unremark able. The spleen is normal in size. Adrenal glands and genitourinary system: The adrenal glands are normal bilaterally. The kidneys are normal and size, contour and attenuation with no evidence for masses, calculi or hydronephrosis. The ureters are unremarkable. No urinary bladder abnormality is demonstrated. The uterus and adnexa are unremarkable. Gastrointestinal system: A small hiatal hernia is present with some borderline gastric wall thickeni ng unable to exclude gastritis. The small bowel is normal in caliber with no ileus, obstruction or w all thickening. There is no evidence of appendicitis, the appendix is not well visualized. The colon shows no evidence for wall thickening or acute abnormality. There is no evidence for colitis or div erticulitis. Peritoneum, retroperitoneum, lymph nodes and vessels: The abdominal aorta is normal in caliber. Ther e is moderate aortic and iliac atherosclerotic calcification. The inferior vena cava is unremarkable . There is no evidence for adenopathy or mass. A moderate amount of ascites is present, predominantl y the perihepatic and perisplenic and location but also in the dependent portion of the pelvis. Ther e is no evidence of pneumoperitoneum. Osseous structures and musculoskeletal findings: There is no fracture, lytic or blastic lesion. Dege nerative spondylosis and disk disease of the lower thoracic levels as noted. No muscular abnormality or soft tissue pathology is present. Incidental calcified injection granulomata of the gluteal bill ons are seen. Anterior midline abdominal infraumbilical scarring is suggestive of prior surgery. IMPRESSION: 1. Nodular, shrunken liver, suggesting cirrhosis with associated moderate ascites. 2. Cholelithiasis without CT evidence of cholecystitis. 3. Atherosclerotic calcification of the abdominal aorta with arteriosclerosis of the iliac systems. 4. Old granulomatous disease, unchanged. 5. Bibasilar atelectasis. 6. Heterogeneous density in the liver, not well evaluated secondary to lack of intravenous contrast . [address] is suggested to exclude underlying mass. 7. Thickened gastric mucosa could be due to gastritis or infiltrating mass and is unchanged from pr evious exam. RPTAT: II .Rush Sharma MD, Date Time Electronically viewed and signed by .Rush Sharma MD, on 02/27/2017 17:24 .M/
[2017-02-27 17:26] LABS: ADD UMIC NO; URINE BILIRUBIN (Dip) NEGATIVE (NEGATIVE); URINE BLOOD (Dip) NEGATIVE (NEGATIVE); URINE COLOR LT. YELLOW (YELLOW); URINE GLUCOSE (Dip) NEGATIVE (NEGATIVE); URINE KETONES (Dip) NEGATIVE (NEGATIVE); URINE LEUKOCYTE ESTERASE (Dip) NEGATIVE (NEGATIVE); URINE NITRITE (Dip) NEGATIVE (NEGATIVE); URINE TOTAL PROTEIN (Dip) NEGATIVE (NEGATIVE); URINE UROBILINOGEN (Dip) 0.2 E.U./dL (0.1-1.0)
[2017-02-27] MEDS ORDERED: ONDANSETRON 4 MG INJ IV PRN (18:00)
[2017-02-27] MEDS ORDERED: ACETAMINOPHEN 325 MG TAB PO PRN (18:00)
--- NOTE | 2017-02-27 18:25 | ERA ---
ER Documentation Chief Complaint Date/Time DATE: 02/27/17 TIME: 18:20 Chief Complaint AP X 3 DAYS HISTORY OF CHOLEITHIASIS N/V HPI 61-year-old female history of autoimmune hepatitis, possible conversion to cirrhosis who presents with abdominal pain nausea and vomiting. She also has a lack of bowel movement for several days. She does have a history of prior surgery with an appendectomy. The family is concerned because the patient has been diagnosed with gallstones in the past. No reported fever. Vomiting is nonbloody nonbilious. Pain is mild 3 out of 10 in diffuse usually only associated with vomiting. ROS All systems reviewed and are negative except as per history of present illness. Medications Home Meds Active Scripts Meclizine Hcl* (Antivert*) 12.5 Mg Tab, 25 MG PO Q6H Y for DIZZINESS, #20 TAB Prov:RYAN WEBB DO 02/09/17 Ondansetron (Ondansetron Odt) 4 Mg Tab.rapdis, 4 MG PO Q6H Y for NAUSEA AND/OR VOMITING, #10 TAB Prov:RYAN WEBB DO 02/09/17 Hydrocodone/Acetaminophen ([place] 10-325 Tablet) 1 Each Tablet, 1 TAB PO Q6H Y for PAIN, #20 TAB Prov:RYAN WEBB. DO 02/09/17 Dicyclomine Hcl* (Bentyl*) 10 Mg Capsule, 20 MG PO QID, #30 CAP Prov:RYAN WEBB DO 02/09/17 Reported Medications Metformin* (Glucophage*) 500 Mg Tab, 500 MG PO BID, #90 TAB 02/09/17 Lactulose* (Lactulose*) 20 Gm/30 Ml Solution, 20 GM PO DAILY Y for CONSTIPATION , ML 02/09/17 Furosemide* (Furosemide*) 20 Mg Tablet, 20 MG PO DAILY, #60 TAB 02/09/17 Spironolactone* (Aldactone*) 50 Mg Tablet, 50 MG PO DAILY, #30 TAB 02/09/17 Mycophenolate Mofetil* (Cellcept*) 500 Mg Tablet, 500 MG PO TID, #60 TAB 12/10/16 Insulin Glargine* (Lantus*) 100 Unit/Ml Soln, 20 UNIT SC DAILY, #1 VIAL 12/10/16 Allergies Allergies: Coded Allergies: No Known Allergy (Unverified , 12/10/16) PMhx/Soc History of Surgery: Yes (, Apendectomy ) Anesthesia Reaction: No Hx Neurological Disorder: No Hx Respiratory Disorders: No Hx Cardiac Disorders: Yes (HTN) Hx Psychiatric Problems: No Hx Miscellaneous Medical Probl: Yes (Live failure, autoimmune ) Hx Alcohol Use: No Hx Substance Use: No Hx Tobacco Use: No Smoking Status: Never smoker FmHx Family History: No diabetes Physical Exam Vitals Vital Signs Date Time Temp Pulse Resp B/P Pulse Ox O2 Delivery O2 Flow Rate FiO2 02/27/17 18:04 98.9 74 20 94/66 100 Nasal Cannula 2.0 02/27/17 17:01 99.0 72 20 91/55 99 Nasal Cannula 2.0 02/27/17 14:57 99.0 101 18 92/54 99 Physical Exam General: Appears dehydrated, uncomfortable, dry heaving Head: Normocephalic, atraumatic. Eyes: Pupils equally reactive, EOM intact ENT: Moist mucous membranes Neck: Supple, no lymphadenopathy Respiratory: Lungs clear bilaterally, no distress Cardiovascular: RRR, no murmurs, rubs, or gallops Abdominal: Soft, mild diffuse tenderness but without peritonitis, negative Pradhan sign, no tenderness to McBurney's point, no pulsatile mass, no fluid wave : Deferred MSK: No edema, no unilateral swelling, 5/5 strength Neurologic: Alert and oriented, moving all extremities, normal speech, no focal weakness, no cerebellar signs Skin: No rash Psych: Normal mood Result Diagram: 02/27/17 1548 02/27/17 1548 Results 24 hrs Laboratory Tests Test 02/27/17 15:48 02/27/17 17:15 White Blood Count 7.510^3/ul Red Blood Count 3.7610^6/ul Hemoglobin 12.7g/dl Hematocrit 36.8% Mean Corpuscular Volume 97.9fl Mean Corpuscular Hemoglobin 33.8pg Mean Corpuscular Hemoglobin Concent 34.5g/dl Red Cell Distribution Width 14.4% Platelet Count 85750^3/UL Mean Platelet Volume 9.6fl Neutrophils % 64.4% Lymphocytes % 26.4% Monocytes % 8.3% Eosinophils % 0.1% Basophils % 0.5% Nucleated Red Blood Cells % 0.0/100WBC Neutrophils # 4.810^3/ul Lymphocytes # 2.010^3/ul Monocytes # 0.610^3/ul Eosinophils # 0.010^3/ul Basophils # 0.010^3/ul Nucleated Red Blood Cells # 0.010^3/ul Prothrombin Time 17.5Sec Prothrombin Time Ratio 1.4 INR International Normalized Ratio 1.43 Activated Partial Thromboplast Time 30.3Sec Sodium Level 135mmol/L Potassium Level 3.9mmol/L Chloride Level 100mmol/L Carbon Dioxide Level 27mmol/L Anion Gap 12 Blood Urea Nitrogen 11mg/dl Creatinine 0.69mg/dl Glucose Level 95mg/dl Lactic Acid Level 3.1mmol/L Calcium Level 8.4mg/dl Total Bilirubin 1.7mg/dl Direct Bilirubin 0.00mg/dl Indirect Bilirubin 1.7mg/dl Aspartate Amino Transf (AST/SGOT) 53IU/L Alanine Aminotransferase (ALT/SGPT) 36IU/L Alkaline Phosphatase 139IU/L Troponin I < 0.012ng/ml Total Protein 6.6g/dl Albumin 3.1g/dl Globulin 3.50g/dl Albumin/Globulin Ratio 0.88 Lipase 50U/L Urine Color LT. YELLOW Urine Clarity CLEAR Urine pH 6.0 Urine Specific [place] <=1.005 Urine Ketones NEGATIVE Urine Nitrite NEGATIVE Urine Bilirubin NEGATIVE Urine Urobilinogen 0.2 E.U./dL Urine Leukocyte Esterase NEGATIVE Urine Hemoglobin NEGATIVE Urine Glucose NEGATIVE% Urine Total Protein NEGATIVE Current Medications Medications (Trade) Dose Ordered Sig/Rohit Route PRN Reason Start Time Stop Time Status Last Admin Dose Admin Sodium Chloride (NS) 1,000 ml @ 1,000 mls/hr Q1H STAT IV 02/27/17 15:27 02/27/17 16:26 DC 02/27/17 15:51 Morphine Sulfate (morphine) 4 mg ONCE STAT IV 02/27/17 15:27 02/27/17 15:29 DC 02/27/17 15:50 Ondansetron HCl 4 mg 4 mg ONCE STAT IV 02/27/17 15:27 02/27/17 15:29 DC 02/27/17 15:50 Sodium Chloride (NS) 1,000 ml @ 1,000 mls/hr Q1H STAT IV 02/27/17 17:17 6/3/17 18:16 DC 02/27/17 17:32 Ondansetron HCl (Zofran Inj) 4 mg BRIDGE ORDER PRN IV NAUSEA AND/OR VOMITING 02/27/17 18:00 02/28/17 17:59 Acetaminophen (Tylenol Tab) 650 mg ER BRIDGE PRN PO MILD PAIN/FEVER 02/27/17 18:00 02/28/17 17:59 Procedures/MDM EKG, MONITORS, & DIAGNOSTIC IMAGING: EKG: I reviewed and interpreted a 12-lead EKG. Rhythm: Normal sinus rhythm Ectopy: None Intervals: No abnormalities ST segments: No elevations or depressions T waves: No contiguous inversions Gallbladder ultrasound: IMPRESSION: Moderate ascites. Cirrhotic liver without evidence of definite focal lesion. Normal gallbladder without gallstones. No intrahepatic biliary dilatation. Extrahepatic biliary system not visualized. RPTAT: AADD CT abdomen and pelvis: IMPRESSION: 1. Nodular, shrunken liver, suggesting cirrhosis with associated moderate ascites. 2. Cholelithiasis without CT evidence of cholecystitis. 3. Atherosclerotic calcification of the abdominal aorta with arteriosclerosis of the iliac systems. 4. Old granulomatous disease, unchanged. 5. Bibasilar atelectasis. 6. Heterogeneous density in the liver, not well evaluated secondary to lack of intravenous contrast. [address] is suggested to exclude underlying mass. 7. Thickened gastric mucosa could be due to gastritis or infiltrating mass and is unchanged from previous exam. RPTAT: II LAB INTERPRETATION: No leukocytosis, isolated lactic acidosis, negative troponin, nonobstructive hepatobiliary pattern MEDICAL DECISION MAKING: Patient presents with abdominal pain nausea vomiting in the setting of a history of cirrhosis secondary to autoimmune hepatitis. Consider broad differential. She does not have a significant fluid wave and does not have significant abdominal tenderness. I do not believe this is consistent with SBP. Consider viral process, dehydration, progression of disease. In the past there is been concern for possible hepatocellular carcinoma. Consider development of this process. Low concern for choledocholithiasis or acute cholecystitis however not possible given her history. ER COURSE: The patient had a broad workup that included laboratory testing and diagnostic imaging that is grossly unchanged. She has isolated lactic acidosis but no Sirs criteria. She has no source. I do not believe this is consistent with SBP. This is likely secondary to dehydration, considering of fluid resuscitation. Blood cultures have been taken but no indication for antibiotics. 2 L of saline provided. The patient's pain is well controlled she does not have pain out of proportion. Her repeat abdominal exam is benign. I do not believe this is consistent with mesenteric ischemia. CTA not indicated at this point. Inpatient hospitalization for further monitoring and fluid hydration would be most appropriate. Blood pressure slightly low in the 90s. This is not consistent with acute vascular catastrophe such as aneurysm. She does not have any significant back pain. This is likely secondary to dehydration in the setting of cirrhosis as well. Continue fluids for resuscitation. No indication for central line or pressors. I kept the patient and/or family informed of laboratory and diagnostic imaging results throughout the emergency room course. DISPOSITION PLAN: Medical surgical admission CONSULTATION: Accepting care team and consultations: I discussed the current laboratory data, diagnostic imaging and emergency care provided. Admitting team: Dr. Shree Keith Admitting team indication: Insurance directed Departure Diagnosis: Primary Impression: Generalized abdominal pain Additional Impressions: Nausea & vomiting Qualified Code: R11.2 - Non-intractable vomiting with nausea, unspecified vomiting type Severe dehydration Lactic acidosis Condition: Stable ANAIS BLEVINS MD Feb 27, 2017 18:24
[2017-02-27 21:28] VITALS: TEMP 98.9
[2017-02-27 22:33] VITALS: Ht 157.5 cm; Wt 84.5 kg
[2017-02-28] MEDS ORDERED: HYDROmorphONE 1 MG/ML SYG IV PRN
[2017-02-28] MEDS: DEXTROSE 5%-0.45% NACL 1,000 ML IV SCH ×2 (00:11→16:20)
[2017-02-28] MEDS ORDERED: DEXTROSE 50% 50 ML SYRINGE IV PRN ×2 (00:30)
[2017-02-28] MEDS ORDERED: GLUCOSE GEL 15 GRAM TUBE PO PRN ×2 (00:30)
[2017-02-28] MEDS ORDERED: GLUCAGON 1 MG INJ IM PRN (00:30)
[2017-02-28] MEDS ORDERED: GLUCOSE GEL 15 GRAM TUBE BUCCAL PRN (00:30)
[2017-02-28] MEDS ORDERED: ACCU-CHEK XX SCH (02:00)
[2017-02-28] MEDS: ACCU-CHEK XX SCH (02:00)
[2017-02-28] MEDS: ONDANSETRON 4 MG INJ IV PRN (05:15)
[2017-02-28] MEDS: PANTOPRAZOLE 40 MG INJ IV SCH (05:15)
[2017-02-28 05:19] LABS: ADD SCAN DIFF NO
[2017-02-28 05:25] LABS: BASOPHILS % 0.8 % (0.0-2.0); EOSINOPHILS # 0.1 10^3/ul (0.0-0.5); EOSINOPHILS % 0.9 % (0.0-7.0); HEMATOCRIT 32.7 % (37.0-47.0); HEMOGLOBIN 11.3 g/dl (12.0-16.0); LYMPHOCYTES # 1.8 10^3/ul (0.8-2.9); MEAN CORPUSCULAR HEMOGLOBIN 34.6 pg (29.0-33.0); MEAN CORPUSCULAR HGB CONC 34.6 g/dl (32.0-37.0); MEAN PLATELET VOLUME 9.5 fl (7.4-10.4); MONOCYTE # 0.5 10^3/ul (0.3-0.9); MONOCYTES % 9.8 % (0.0-11.0); NEUTROPHIL # 2.9 10^3/ul (1.6-7.5); NEUTROPHILS % 55.3 % (39.0-77.0); PLATELET COUNT 115 10^3/UL (140-415); RED BLOOD COUNT 3.27 10^6/ul (4.20-5.40); RED CELL DISTRIBUTION WIDTH 14.6 % (11.5-14.5); WHITE BLOOD COUNT 5.3 10^3/ul (4.8-10.8)
[2017-02-28 05:50] LABS: ALBUMIN 2.3 g/dl (3.3-4.9); ALBUMIN/GLOBULIN RATIO 0.71; BILIRUBIN,INDIRECT 1.2 mg/dl (0-1.1); BILIRUBIN,TOTAL 1.2 mg/dl (0.2-1.3); CALCIUM 7.5 mg/dl (8.4-10.2); CREATININE 0.57 mg/dl (0.44-1.00); POTASSIUM 3.4 mmol/L (3.5-5.1); TOTAL PROTEIN 5.5 g/dl (6.1-8.1)
[2017-02-28 07:49] VITALS: BP 87/55; RESP 16
[2017-02-28] MEDS: INSULIN ASPART [NOVOLOG] 3 ML PEN SC SCH ×4 (08:00→20:48)
[2017-02-28] MEDS: LACTULOSE 30ML CUP PO SCH ×2 (08:17→20:43)
[2017-02-28 12:30] VITALS: BP 90/62
--- NOTE | 2017-02-28 13:20 | QN ---
Documentation Comment [id number] LYNETTE SAINZ MD Feb 28, 2017 13:20
[2017-02-28] MEDS ORDERED: POTASSIUM CHLORIDE 20 MEQ POWDER FOR ORAL SOLN PO ONE (15:00)
[2017-02-28] MEDS ORDERED: [UNRECOGNIZED DRUG - OTHER] XX SCH (15:30)
[2017-02-28] MEDS: morphine 2 MG INJ IV PRN ×2 (18:42→22:47)
[2017-02-28] MEDS ORDERED: MYCOPHENOLATE 250 MG CAP PO SCH (21:00)
[2017-02-28 22:16] VITALS: BP 93/61; RESP 18
[2017-03-01] MEDS: ACCU-CHEK XX SCH (02:00)
[2017-03-01] MEDS: PANTOPRAZOLE 40 MG INJ IV SCH (05:25)
[2017-03-01 05:58] LABS: ADD SCAN DIFF NO
[2017-03-01 06:08] LABS: BASOPHIL # 0.1 10^3/ul (0.0-0.1); BASOPHILS % 0.6 % (0.0-2.0); EOSINOPHILS # 0.1 10^3/ul (0.0-0.5); EOSINOPHILS % 0.8 % (0.0-7.0); HEMATOCRIT 34.1 % (37.0-47.0); HEMOGLOBIN 11.3 g/dl (12.0-16.0); LYMPHOCYTES # 1.7 10^3/ul (0.8-2.9); LYMPHOCYTES % 22.3 % (15.0-51.0); MEAN CORPUSCULAR HEMOGLOBIN 33.3 pg (29.0-33.0); MEAN CORPUSCULAR HGB CONC 33.1 g/dl (32.0-37.0); MEAN CORPUSCULAR VOLUME 100.6 fl (82.0-101.0); MEAN PLATELET VOLUME 9.8 fl (7.4-10.4); MONOCYTE # 0.7 10^3/ul (0.3-0.9); MONOCYTES % 8.7 % (0.0-11.0); NEUTROPHIL # 5.2 10^3/ul (1.6-7.5); NEUTROPHILS % 67.3 % (39.0-77.0); PLATELET COUNT 106 10^3/UL (140-415); RED BLOOD COUNT 3.39 10^6/ul (4.20-5.40); RED CELL DISTRIBUTION WIDTH 14.5 % (11.5-14.5); WHITE BLOOD COUNT 7.7 10^3/ul (4.8-10.8)
[2017-03-01 06:36] LABS: ALBUMIN 2.3 g/dl (3.3-4.9); ALBUMIN/GLOBULIN RATIO 0.71; BILIRUBIN,INDIRECT 1.2 mg/dl (0-1.1); BILIRUBIN,TOTAL 1.2 mg/dl (0.2-1.3); CALCIUM 7.6 mg/dl (8.4-10.2); CREATININE 0.58 mg/dl (0.44-1.00); POTASSIUM 3.7 mmol/L (3.5-5.1); TOTAL PROTEIN 5.5 g/dl (6.1-8.1)
[2017-03-01] MEDS: ONDANSETRON 4 MG INJ IV PRN (07:48)
[2017-03-01] MEDS: morphine 2 MG INJ IV PRN (07:50)
[2017-03-01] MEDS: MYCOPHENOLATE 250 MG CAP PO SCH ×3 (07:51→22:02)
--- NOTE | 2017-03-01 07:57 | HP ---
DATE OF ADMISSION: 02/27/2017 HISTORY OF PRESENT ILLNESS: Eloise Youngblood is a 61-year-old female with history of autoimmune hepatitis, history of paracentesis in the past. In October, she had paracentesis done and 3 liters were removed. The patient now presents with abdominal pain, nausea and vomiting. A CT scan done in the past shows patient has cirrhosis, extensive heterogenicity of hepatic parenchyma with large areas of low density which may all be due to cirrhosis. The patient also has numerous calcified gallstones without gallbladder wall thickening, no biliary duct dilatation in the past. The patient follows with [facility] for possible transplant evaluation. Recently finished prednisone course, now she is on CellCept, takes daily as immunosuppressive therapy, and now patient presents with nausea, vomiting and abdominal pain. No fever, chills, or rigors. Blood pressure 90/62. Hematocrit 32.7, platelet count 115, potassium 3.4, being replaced. Calcium 10.5, indirect bilirubin 0.2, albumin 2.3. INR 1.4, hematocrit of 32.7. Urine is negative. Patient had an abdomen and pelvis CT scan, shows nodular _ liver cysts, suggesting cirrhosis, also moderate ascites, cholelithiasis without CT evidence of cholecystitis, atherosclerotic calcification of the abdominal aorta, old granulomatous disease, bibasilar atelectasis, thickened gastric mucosa. PAST MEDICAL HISTORY: Includes: Diabetes, history of cirrhosis of the liver, hepatitis, history of paracentesis, history of , history of appendectomy. ALLERGY HISTORY: NEGATIVE. FAMILY HISTORY: Negative. SOCIAL HISTORY: Negative. MEDICATION HISTORY: The patient is on: 1. Bentyl. 2. Lasix. 3. [place]. 4. Insulin 5. Lactulose. 6. Meclizine. 7. Metformin. 8. CellCept. 9. Zofran. 10. Aldactone. REVIEW OF HEENT: Unremarkable. RESPIRATORY: Unremarkable. CARDIOVASCULAR: Unremarkable. ABDOMEN: As mentioned. EXTREMITIES: No swelling. PHYSICAL EXAMINATION: GENERAL: The patient is awake, alert: Pale-looking. VITAL SIGNS: Stable with pulse 93, blood pressure, afebrile. HEAD: Atraumatic, normocephalic. Pupils equal, reactive to light. NECK: Supple. There is no JVD. LUNGS: Clear. CARDIOVASCULAR: S1, S2 normal. ABDOMEN: Soft, distended, bowel sounds positive, nontender. EXTREMITIES: No cyanosis, clubbing, edema noted. CENTRAL NERVOUS SYSTEM: The patient is awake, alert, no focal deficit. IMPRESSION: 1. Patient has cirrhosis of the liver. 2. The patient has nausea and vomiting, possibly due to ascites, cirrhosis of the liver. 3. Other diagnosis hypokalemia. 4. Other diagnosis, the patient has anemia, thrombocytopenia. PLAN: To continue diabetic diet. GI consultation, review home medication, electrolyte replacement. Orders were done. Dr. Josue has been called to see this patient in consultation. Dictated By: LYNETTE SAINZ MD BS/NTS Conf#: [id number] DID#: [id number] MTDD
[2017-03-01 08:00] VITALS: BP 99/66; RESP 18
[2017-03-01] MEDS: INSULIN ASPART [NOVOLOG] 3 ML PEN SC SCH ×4 (08:00→21:00)
[2017-03-01] MEDS: DEXTROSE 5%-0.45% NACL 1,000 ML IV SCH (08:37)
[2017-03-01] MEDS: SPIRONOLACTONE 50 MG TAB PO SCH (08:39)
[2017-03-01] MEDS: LACTULOSE 30ML CUP PO SCH ×2 (08:40→20:59)
--- NOTE | 2017-03-01 16:26 | RADRPT ---
PROCEDURE: US Abdomen limited . CLINICAL INDICATION: Ascites TECHNIQUE: Multiple real-time images were acquired of the patient's abdomen utilizing a high resol ution transducer. COMPARISON: 02/27/17 FINDINGS: There is a moderate amount of ascites. RPTAT: AA IMPRESSION: Moderate amount of ascites. .Yovani Munroe MD, MD Date Time Electronically viewed and signed by .Yovani Munroe MD, MD on 03/01/2017 16:26 .S/
--- NOTE | 2017-03-01 19:10 | PN ---
Date/Time of Note Date/Time of Note DATE: 03/01/17 TIME: 19:09 Assessment/Plan VTE Prophylaxis VTE Prophylaxis Intervention: other Lines/Catheters IV [facility]ter Type (from [email or web address] Peripheral IV Urinary Cath still in place: No Assessment/Plan Chief Complaint/Hosp Course IMPRESSION: 1. Patient has cirrhosis of the liver. 2. The patient has nausea and vomiting, possibly due to ascites, cirrhosis of the liver. 3. Other diagnosis hypokalemia. 4. Other diagnosis, the patient has anemia, thrombocytopenia. 5 abd pain w ascites plan paracentesis Problems: Subjective 24 Hr Interval Summary Cardiovascular: no complaints Gastrointestinal: pain (+) Exam/Review of Systems Vital Signs Vitals Vital Signs Date Time Temp Pulse Resp B/P Pulse Ox O2 Delivery O2 Flow Rate FiO2 03/01/17 08:00 97.9 96 18 99/66 97 02/27/17 21:28 Nasal Cannula 2.0 Intake and Output 02/28/17 02/28/17 03/01/17 15:00 23:00 07:00 Intake Total 1900 ml 960 ml Balance 1900 ml 960 ml Exam Respiratory: clear to auscultation Cardiovascular: regular rate and rhythm Gastrointestinal: ascites (+), bowel sounds (+), soft Results Result Diagram: 03/01/17 0432 03/01/17 0432 Results 24 hrs Laboratory Tests Test 02/28/17 20:47 03/01/17 04:32 03/01/17 08:19 03/01/17 12:22 Bedside Glucose 141 138 147 White Blood Count 7.7 # Red Blood Count 3.39 L Hemoglobin 11.3 L Hematocrit 34.1 L Mean Corpuscular Volume 100.6 Mean Corpuscular Hemoglobin 33.3 H Mean Corpuscular Hemoglobin Concent 33.1 Red Cell Distribution Width 14.5 Platelet Count 106 L Mean Platelet Volume 9.8 Neutrophils % 67.3 Lymphocytes % 22.3 Monocytes % 8.7 Eosinophils % 0.8 Basophils % 0.6 Nucleated Red Blood Cells % 0.0 Neutrophils # 5.2 Lymphocytes # 1.7 Monocytes # 0.7 Eosinophils # 0.1 Basophils # 0.1 Nucleated Red Blood Cells # 0.0 Sodium Level 136 Potassium Level 3.7 Chloride Level 106 Carbon Dioxide Level 21 Anion Gap 13 Blood Urea Nitrogen 9 Creatinine 0.58 Glucose Level 137 # Calcium Level 7.6 L Total Bilirubin 1.2 Direct Bilirubin 0.00 Indirect Bilirubin 1.2 H Aspartate Amino Transf (AST/SGOT) 50 H Alanine Aminotransferase (ALT/SGPT) 29 Alkaline Phosphatase 101 Ammonia 49 H Total Protein 5.5 L Albumin 2.3 L Globulin 3.20 Albumin/Globulin Ratio 0.71 Test 03/01/17 17:36 Bedside Glucose 138 Medications Medications Current Medications Dextrose/Sodium Chloride (D5-1/2ns) 1,000 ml @ 60 mls/hr [id number] IV Last administered on 03/01/17 08:37; Admin Dose 60 MLS/HR; Start 02/28/17 at 00:00 Ondansetron HCl (Zofran Inj) 4 mg Q4H PRN IV NAUSEA AND/OR VOMITING Last administered on 03/01/17 07:48; Admin Dose 4 MG; Start 02/28/17 at 00:00 Pantoprazole (Protonix Iv) 40 mg DAILY@06 IV Last administered on 03/01/17 05: 25; Admin Dose 40 MG; Start 02/28/17 at 06:00 Lactulose (Enulose) 30 gm BID PO Last administered on 03/01/17 08:40; Admin Dose 30 GM; Start 02/28/17 at 09:00 Hydromorphone HCl (Dilaudid) 0.5 mg Q4H PRN IV PAIN; Start 02/28/17 at 00:00 Diagnostic Test (Pha) (Accu-Chek) 1 ea 02 XX ; Start 02/28/17 at 02:00 Miscellaneous Information 1 ea NOTE XX ; Start 02/28/17 at 00:30 Glucose (Glutose) 15 gm Q15M PRN PO DECREASED GLUCOSE; Start 02/28/17 at 00:30 Glucose (Glutose) 22.5 gm Q15M PRN PO DECREASED GLUCOSE; Start 02/28/17 at 00:30 Dextrose (D50w Syringe) 25 ml Q15M PRN IV DECREASED GLUCOSE; Start 02/28/17 at 00:30 Dextrose (D50w Syringe) 50 ml Q15M PRN IV DECREASED GLUCOSE; Start 02/28/17 at 00:30 Glucagon (Glucagen) 1 mg Q15M PRN IM DECREASED GLUCOSE; Start 02/28/17 at 00:30 Glucose (Glutose) 15 gm Q15M PRN BUCCAL DECREASED GLUCOSE; Start 02/28/17 at 00: 30 Spironolactone (Aldactone) 50 mg DAILY PO ; Start 03/01/17 at 09:00 Morphine Sulfate (morphine) 2 mg Q4H PRN IV PAIN Last administered on 03/01/17 07:50; Admin Dose 2 MG; Start 02/28/17 at 18:30 Mycophenolate Mofetil (Cellcept) 500 mg Q8 PO Last administered on 03/01/17 13: 23; Admin Dose 500 MG; Start 03/01/17 at 06:00 LYNETTE SAINZ MD Mar 01, 2017 19:10
[2017-03-01 19:34] VITALS: BP 89/57; RESP 18
--- NOTE | 2017-03-01 21:45 | CONS ---
DATE OF ADMISSION: 02/27/2017 DATE OF CONSULTATION: 02/28/2017 HISTORY OF PRESENT ILLNESS: The patient is a 61-year-old female with a history of chronic autoimmun e hepatitis, which was recently diagnosed and being followed at [facility]. Initially started on prednisone, gradually tapered off, and now patient is on CellCept. She is also known to have cirrho sis and ascites and had a paracentesis done in the past. The GI consult was called in for abdominal pain and also for ascites. Discussed with the daughter who knew the history very well. The patien t also has intermittent nausea, vomiting, and anorexia. No GI bleeding, no chest pain, no shortness of breath. PAST MEDICAL HISTORY: Diabetes mellitus, history of cirrhosis of liver from autoimmune hepatitis, a scites, , and history of appendicectomy. ALLERGIES: NEGATIVE. FAMILY HISTORY: Negative. SOCIAL HISTORY: Negative. MEDICATIONS: The patient is on: 1. Bentyl. 2. Lasix. 3. [place]. 4. Insulin. 5. Lactulose. 6. Meclizine. 7. Metformin. 8. CellCept. 9. Zofran. 10. Aldactone. REVIEW OF SYSTEMS: Unremarkable. PHYSICAL EXAMINATION: GENERAL: Alert, awake, appears to be somewhat ____. VITAL SIGNS: Stable. HEENT: Unremarkable. NECK: Supple. No thyromegaly, lymphadenopathy. CARDIOVASCULAR: No murmur, gallop, or click. LUNGS: Clear. ABDOMEN: Benign except for the diffuse tenderness all over place. EXTREMITIES: No edema. CENTRAL NERVOUS SYSTEM: Grossly within normal limits. IMAGING: The patient's CAT scan of the abdomen and pelvis showed cirrhosis of liver with ascites. Also had a gallstone. Also thickened gastric mucosa. LABORATORY DATA: Hematocrit 34, platelet count was low, 106. Bilirubin was 1.2. Ammonia was mildl y elevated to 49. INR was 1.4. IMPRESSION: 1. Autoimmune hepatitis. 2. Cirrhosis of liver. 3. Portal hypertension. 4. Mild encephalopathy. 5. Diabetes mellitus. 6. Intermittent nausea and vomiting for the last 4 to 5 months. PLAN: 1. At this point, the patient definitely needs EGD, given the abnormal finding on the CAT scan with thickening of the mucosa, nausea and vomiting for the past 4 to 5 months, and abdominal pain. 2. P.O. fluid restriction. 3. P.O. sodium restriction. 4. Diuretic, both Lasix and Aldactone. 5. Continue using immunosuppressive medication for autoimmune hepatitis. 6. The patient will be also placed on lactulose for high ammonia level. I discussed with daughter face to face. Dictated By: LAURA JOHNSTON/REI Conf#: [id number] DID#: [id number] CC: LAURA RAMIREZ MD; LYNETTE SAINZ MD;*EndCC*
[2017-03-01 22:31] VITALS: BP 95/63; PULSE 93; RESP 18
[2017-03-02] MEDS: DEXTROSE 5%-0.45% NACL 1,000 ML IV SCH ×2 (00:03→18:39)
[2017-03-02] MEDS: ACCU-CHEK XX SCH (02:00)
[2017-03-02] MEDS: MYCOPHENOLATE 250 MG CAP PO SCH ×3 (06:20→21:39)
[2017-03-02] MEDS: PANTOPRAZOLE 40 MG INJ IV SCH (06:20)
[2017-03-02 08:00] VITALS: BP 86/57; RESP 20
[2017-03-02] MEDS: INSULIN ASPART [NOVOLOG] 3 ML PEN SC SCH ×4 (08:00→21:00)
[2017-03-02] MEDS: LACTULOSE 30ML CUP PO SCH ×2 (08:26→21:39)
[2017-03-02] MEDS: SPIRONOLACTONE 50 MG TAB PO SCH (08:27)
[2017-03-02] MEDS ORDERED: LIDOCAINE 1% (MPF) 5 ML VIAL ONE (12:12)
--- NOTE | 2017-03-02 12:50 | RADRPT ---
PROCEDURE: US guided paracentesis CLINICAL INDICATION: Ascites TECHNIQUE: Multiple sonographic images were obtained through the patient's abdomen. A site in the patient's RIGHT lower abdomen was selected and marked. The area was prepped and draped in the usual sterile fashion. 1% lidocaine was utilized. A 19-gauge Yueh needle was advanced into the peritonea l space and the introducer was connected to a vacuum drainage bottle. A total of 3800 cc of clear y ellow fluid were drained at the end of the procedure. The patient tolerated the procedure well. The specimen was sent for laboratory evaluation. COMPARISON: None FINDINGS: Ascites. RPTAT: AA IMPRESSION: Successful paracentesis. .Yovani Munroe MD, MD Date Time Electronically viewed and signed by .Yovani Munroe MD, on 03/02/2017 12:49 .S/
[2017-03-02 17:00] LABS: FLUID LD 180 U/L; FLUID TOTAL PROTEIN < 2.0 g/dl
[2017-03-02 17:59] LABS: FLUID APPEARANCE CLEAR; FLUID RBC EST 0; FLUID TYPE PARACENTHESIS; FLUID WBC'S 118 /cmm
[2017-03-02 18:00] LABS: FLUID LYMPHOCYTES 40 %; FLUID MONOCYTES 30 %; FLUID NEUTROPHILS 30 %
[2017-03-02 20:00] VITALS: BP 78/51; RESP 20
[2017-03-02 21:08] VITALS: BP 85/50; RESP 18
[2017-03-02] MEDS: morphine 2 MG INJ IV PRN (21:47)
[2017-03-02] MEDS: ONDANSETRON 4 MG INJ IV PRN (21:51)
--- NOTE | 2017-03-02 22:25 | CONS ---
Date/Time of Note Date/Time of Note DATE: 03/02/17 TIME: 22:24 Assessment/Plan Assessment/Plan Additional Assessment/Plan IMPRESSION: 1. Autoimmune hepatitis. 2. Cirrhosis of liver. 3. Portal hypertension. 4. Mild encephalopathy. 5. Diabetes mellitus. 6. Intermittent nausea and vomiting for the last 4 to 5 months. PLAN: 1. At this point, the patient definitely needs EGD, given the abnormal finding on the CAT scan with thickening of the mucosa, nausea and vomiting for the past 4 to 5 months, and abdominal pain. 2. P.O. fluid restriction. 3. P.O. sodium restriction. 4. Diuretic, both Lasix and Aldactone. 5. Continue using immunosuppressive medication for autoimmune hepatitis. 6. The patient will be also placed on lactulose for high ammonia level. Consultation Date/Type/Reason Admit Date/Time Feb 27, 2017 at 17:50 Initial Consult Date 24 HR Interval Summary Free Text/Dictation abdominal pain,vomiting Exam/Review of Systems Vital Signs Vitals Vital Signs Date Time Temp Pulse Resp B/P Pulse Ox O2 Delivery O2 Flow Rate FiO2 03/02/17 21:08 98.5 92 18 85/50 95 03/02/17 08:00 Room Air 02/27/17 21:28 2.0 Intake and Output 03/01/17 03/01/17 03/02/17 15:00 23:00 07:00 Intake Total 520 ml 960 ml 1310 ml Balance 520 ml 960 ml 1310 ml Exam Constitutional: alert, oriented, well developed Psych: nl mood/affect, no complaints Head: atraumatic, normocephalic Eyes: EOMI, PERRL, nl conjunctiva, nl lids, nl sclera ENMT: nl external ears & nose, nl lips & teeth, nl nasal mucosa & septum Neck: non-tender, supple Respiratory: clear to auscultation, normal air movement Cardiovascular: nl pulses, regular rate and rhythm Gastrointestinal: nl liver, spleen, non-tender, soft Musculoskeletal: nl extremities to inspection, nl gait and stance Extremities: normal pulses Neurological: OIL TREATER II-XII intact, nl mental status, nl speech, nl strength Skin: nl turgor, No rash or lesions Lymph: nl lymph nodes Results Result Diagram: 03/01/17 0432 03/01/17 0432 Results 24 hrs Laboratory Tests Test 03/02/17 08:17 03/02/17 11:25 03/02/17 12:29 03/02/17 17:51 Bedside Glucose 138 140 134 Body Fluid Type Fluid Body Fluid Volume 1000.0 Body Fluid Color YELLOW Body Fluid Appearance CLEAR Body Fluid WBC 118 Body Fluid RBC 0 Body Fluid Neutrophils % 30 Body Fluid Lymphocytes (%) 40 Body Fluid Monocytes % 30 Body Fluid Other Cells (%) Body Fluid Total Protein < 2.0 Body Fluid Lactate Dehydrogenase 180 Test 03/02/17 21:37 Bedside Glucose 137 Medications Medications Current Medications Dextrose/Sodium Chloride (D5-1/2ns) 1,000 ml @ 60 mls/hr [id number] IV Last administered on 03/02/17 18:39; Admin Dose 60 MLS/HR; Start 02/28/17 at 00:00 Ondansetron HCl (Zofran Inj) 4 mg Q4H PRN IV NAUSEA AND/OR VOMITING Last administered on 03/02/17 21:51; Admin Dose 4 MG; Start 02/28/17 at 00:00 Pantoprazole (Protonix Iv) 40 mg DAILY@06 IV Last administered on 03/02/17 06: 20; Admin Dose 40 MG; Start 02/28/17 at 06:00 Lactulose (Enulose) 30 gm BID PO Last administered on 03/02/17 21:39; Admin Dose 30 GM; Start 02/28/17 at 09:00 Hydromorphone HCl (Dilaudid) 0.5 mg Q4H PRN IV PAIN; Start 02/28/17 at 00:00 Diagnostic Test (Pha) (Accu-Chek) 1 ea 02 XX ; Start 02/28/17 at 02:00 Miscellaneous Information 1 ea NOTE XX ; Start 02/28/17 at 00:30 Glucose (Glutose) 15 gm Q15M PRN PO DECREASED GLUCOSE; Start 02/28/17 at 00:30 Glucose (Glutose) 22.5 gm Q15M PRN PO DECREASED GLUCOSE; Start 02/28/17 at 00:30 Dextrose (D50w Syringe) 25 ml Q15M PRN IV DECREASED GLUCOSE; Start 02/28/17 at 00:30 Dextrose (D50w Syringe) 50 ml Q15M PRN IV DECREASED GLUCOSE; Start 02/28/17 at 00:30 Glucagon (Glucagen) 1 mg Q15M PRN IM DECREASED GLUCOSE; Start 02/28/17 at 00:30 Glucose (Glutose) 15 gm Q15M PRN BUCCAL DECREASED GLUCOSE; Start 02/28/17 at 00: 30 Spironolactone (Aldactone) 50 mg DAILY PO Last administered on 03/02/17 08:27; Admin Dose 50 MG; Start 03/01/17 at 09:00 Morphine Sulfate (morphine) 2 mg Q4H PRN IV PAIN Last administered on 03/02/17 21:47; Admin Dose 2 MG; Start 02/28/17 at 18:30 Mycophenolate Mofetil 500 mg 500 mg Q8 PO Last administered on 03/02/17 21:39; Admin Dose 500 MG; Start 03/01/17 at 06:00 Albumin Human (Albumin Human 25%) 100 ml @ 100 mls/hr ONCE ONCE IV ; Start 03/02/17 at 22:30; Stop 03/02/17 at 23:29 LAURA RAMIREZ MD Mar 02, 2017 22:25
[2017-03-02] MEDS ORDERED: ALBUMIN HUMAN 25% 100 ML IV ONE (22:30)
--- NOTE | 2017-03-02 23:04 | PN ---
Date/Time of Note Date/Time of Note DATE: 03/02/17 TIME: 23:03 Assessment/Plan VTE Prophylaxis VTE Prophylaxis Intervention: other Lines/Catheters IV Catheter Type (from Nrs): Peripheral IV Central line still needed: Yes Urinary Cath still in place: No Assessment/Plan Chief Complaint/Hosp Course IMPRESSION: 1. Patient has cirrhosis of the liver. 2. The patient has nausea and vomiting, possibly due to ascites, cirrhosis of the liver. 3. Other diagnosis hypokalemia. 4. Other diagnosis, the patient has anemia, thrombocytopenia. 5 abd pain w ascites better plan s/p paracentesis Problems: Subjective 24 Hr Interval Summary Gastrointestinal: pain (better) Exam/Review of Systems Vital Signs Vitals Vital Signs Date Time Temp Pulse Resp B/P Pulse Ox O2 Delivery O2 Flow Rate FiO2 03/02/17 21:08 98.5 92 18 85/50 95 03/02/17 08:00 Room Air 02/27/17 21:28 2.0 Intake and Output 03/01/17 03/01/17 03/02/17 15:00 23:00 07:00 Intake Total 520 ml 960 ml 1310 ml Balance 520 ml 960 ml 1310 ml Exam Respiratory: clear to auscultation Cardiovascular: regular rate and rhythm Gastrointestinal: ascites, bowel sounds (+), soft Results Result Diagram: 03/01/17 0432 03/01/17 0432 Results 24 hrs Laboratory Tests Test 03/02/17 08:17 03/02/17 11:25 03/02/17 12:29 03/02/17 17:51 Bedside Glucose 138 140 134 Body Fluid Type Fluid Body Fluid Volume 1000.0 Body Fluid Color YELLOW Body Fluid Appearance CLEAR Body Fluid WBC 118 Body Fluid RBC 0 Body Fluid Neutrophils % 30 Body Fluid Lymphocytes (%) 40 Body Fluid Monocytes % 30 Body Fluid Other Cells (%) Body Fluid Total Protein < 2.0 Body Fluid Lactate Dehydrogenase 180 Test 03/02/17 21:37 Bedside Glucose 137 Medications Medications Current Medications Dextrose/Sodium Chloride (D5-1/2ns) 1,000 ml @ 60 mls/hr [id number] IV Last administered on 03/02/17t 18:39; Admin Dose 60 MLS/HR; Start 02/28/17 at 00:00 Ondansetron HCl (Zofran Inj) 4 mg Q4H PRN IV NAUSEA AND/OR VOMITING Last administered on 03/02/17 21:51; Admin Dose 4 MG; Start 02/28/17 at 00:00 Pantoprazole (Protonix Iv) 40 mg DAILY@06 IV Last administered on 03/02/17 06: 20; Admin Dose 40 MG; Start 02/28/17 at 06:00 Lactulose (Enulose) 30 gm BID PO Last administered on 03/02/17 21:39; Admin Dose 30 GM; Start 02/28/17 at 09:00 Hydromorphone HCl (Dilaudid) 0.5 mg Q4H PRN IV PAIN; Start 02/28/17 at 00:00 Diagnostic Test (Pha) (Accu-Chek) 1 ea 02 XX ; Start 02/28/17 at 02:00 Miscellaneous Information 1 ea NOTE XX ; Start 02/28/17 at 00:30 Glucose (Glutose) 15 gm Q15M PRN PO DECREASED GLUCOSE; Start 02/28/17 at 00:30 Glucose (Glutose) 22.5 gm Q15M PRN PO DECREASED GLUCOSE; Start 02/28/17 at 00:30 Dextrose (D50w Syringe) 25 ml Q15M PRN IV DECREASED GLUCOSE; Start 02/28/17 at 00:30 Dextrose (D50w Syringe) 50 ml Q15M PRN IV DECREASED GLUCOSE; Start 02/28/17 at 00:30 Glucagon (Glucagen) 1 mg Q15M PRN IM DECREASED GLUCOSE; Start 02/28/17 at 00:30 Glucose (Glutose) 15 gm Q15M PRN BUCCAL DECREASED GLUCOSE; Start 02/28/17 at 00: 30 Spironolactone (Aldactone) 50 mg DAILY PO Last administered on 03/02/17 08:27; Admin Dose 50 MG; Start 03/01/17 at 09:00 Morphine Sulfate (morphine) 2 mg Q4H PRN IV PAIN Last administered on 03/02/17 21:47; Admin Dose 2 MG; Start 02/28/17 at 18:30 Mycophenolate Mofetil 500 mg 500 mg Q8 PO Last administered on 03/02/17 21:39; Admin Dose 500 MG; Start 03/01/17 at 06:00 Albumin Human (Albumin Human 25%) 100 ml @ 100 mls/hr ONCE ONCE IV ; Start 03/02/17 at 22:30; Stop 03/02/17 at 23:29 LYNETTE SAINZ MD Mar 02, 2017 23:04
[2017-03-02 23:30] VITALS: BP 85/53; PULSE 72; RESP 18
[2017-03-03] VITALS (10 sets, daily range): BP systolic 88–114; BP diastolic 51–68; PULSE 78–86; RESP 16–20
[2017-03-03] MEDS: ACCU-CHEK XX SCH (02:00)
[2017-03-03 05:51] LABS: ADD SCAN DIFF NO
[2017-03-03 05:57] LABS: ABNORMAL IP MESSAGE 1; BASOPHILS % 0.7 % (0.0-2.0); EOSINOPHILS # 0.1 10^3/ul (0.0-0.5); EOSINOPHILS % 1.1 % (0.0-7.0); HEMATOCRIT 30.4 % (37.0-47.0); HEMOGLOBIN 10.2 g/dl (12.0-16.0); LYMPHOCYTES # 1.4 10^3/ul (0.8-2.9); LYMPHOCYTES % 25.2 % (15.0-51.0); MEAN CORPUSCULAR HEMOGLOBIN 33.4 pg (29.0-33.0); MEAN CORPUSCULAR HGB CONC 33.6 g/dl (32.0-37.0); MEAN CORPUSCULAR VOLUME 99.7 fl (82.0-101.0); MEAN PLATELET VOLUME 9.4 fl (7.4-10.4); MONOCYTE # 0.5 10^3/ul (0.3-0.9); MONOCYTES % 8.5 % (0.0-11.0); NEUTROPHIL # 3.7 10^3/ul (1.6-7.5); NEUTROPHILS % 64.3 % (39.0-77.0); PLATELET COUNT 90 10^3/UL (140-415); RED BLOOD COUNT 3.05 10^6/ul (4.20-5.40); RED CELL DISTRIBUTION WIDTH 14.4 % (11.5-14.5); WHITE BLOOD COUNT 5.7 10^3/ul (4.8-10.8)
[2017-03-03] MEDS: MYCOPHENOLATE 250 MG CAP PO SCH ×3 (06:00→21:31)
[2017-03-03] MEDS: PANTOPRAZOLE 40 MG INJ IV SCH (06:10)
[2017-03-03 06:23] LABS: ALBUMIN 2.1 g/dl (3.3-4.9); ALBUMIN/GLOBULIN RATIO 0.77; BILIRUBIN,INDIRECT 1.4 mg/dl (0-1.1); BILIRUBIN,TOTAL 1.4 mg/dl (0.2-1.3); CREATININE 0.63 mg/dl (0.44-1.00); POTASSIUM 3.3 mmol/L (3.5-5.1); TOTAL PROTEIN 4.8 g/dl (6.1-8.1)
--- NOTE | 2017-03-03 07:47 | RADRPT ---
PROCEDURE: XR Chest. CLINICAL INDICATION: PRE OP EVAL TECHNIQUE: Single frontal view of the chest was obtained. COMPARISON: None. FINDINGS: The aortic arch is calcified. The heart and mediastinum are within normal limits. There is a patchy retrocardiac opacity due to subsegmental atelectasis and / or infiltrate. There is no significant pleural effusion or pneumothorax. There are mild degenerative changes in the thoracic spine including small anterior osteophytes. There is decreased osseous mineralization. IMPRESSION: Patchy retrocardiac opacity due to subsegmental atelectasis and / or infiltrate. Aortic atherosclerosis. RPTAT: EE Physician Satish Date Time Electronically viewed and signed by Physician Satish on 03/03/2017 07:47 RA/
[2017-03-03] MEDS: INSULIN ASPART [NOVOLOG] 3 ML PEN SC SCH ×4 (08:00→21:00)
[2017-03-03] MEDS: SPIRONOLACTONE 50 MG TAB PO SCH (08:19)
[2017-03-03] MEDS: LACTULOSE 30ML CUP PO SCH ×2 (08:19→20:40)
[2017-03-03] MEDS: DEXTROSE 5%-0.45% NACL 1,000 ML IV SCH (09:56)
[2017-03-03] MEDS ORDERED: POTASSIUM CHLORIDE 250 ML IVPB ONE (10:00)
[2017-03-03] MEDS ORDERED: EPHEDrine SULFATE 50 MG/5 ML SYG IV PRN (12:30)
[2017-03-03] MEDS ORDERED: ONDANSETRON 4 MG INJ IV PRN (12:30)
[2017-03-03] MEDS ORDERED: LABETALOL HCL 20MG INJ IV PRN (12:30)
[2017-03-03] MEDS ORDERED: METOCLOPRAMIDE 10 MG INJ IV PRN (12:30)
[2017-03-03] MEDS ORDERED: hydrALAzine 20 MG INJ IV PRN (12:30)
[2017-03-03] MEDS ORDERED: FENTAnyl 50 MCG/ML VIAL IV PRN ×3 (12:30)
[2017-03-03] MEDS ORDERED: PROPOFOL 20 ML ONE (12:45)
[2017-03-03] MEDS ORDERED: LIDOCAINE 2% (SDV) 5 ML INJ ONE (12:45)
[2017-03-03] MEDS ORDERED: CIPROFLOXACIN 400MG/D5W 200 ML ONE (13:03)
--- NOTE | 2017-03-03 13:51 | GILP ---
DATE OF PROCEDURE: 03/03/2017 PROCEDURE PERFORMED: EGD with biopsy and bending of the esophageal varicose vein. INDICATION: A 61-year-old female with autoimmune hepatitis, on prednisone, CellCept, with cirrhosis of liver and portal hypertension, undergoing this procedure for constant nausea and vomiting for th e last 6 months and epigastric pain. The patient also had an abnormal finding on the CAT scan, poss ible soft tissue mass in the stomach. INFORMED CONSENT: The risk of the procedure, related and unrelated complications, anesthetic risks, alternatives discussed. Informed consent was obtained. DESCRIPTION OF PROCEDURE: The patient was brought to the GI lab, sedated by Dr. Wasserman. After opti mum sedation, scope was passed with much ease into esophagus and the esophagus she had 2 columns of esophageal varicose veins with red lizbet sign in the distal part of the esophagus. Stomach mucosa re vealed thickened folds throughout the fundus and hyperemia. Definitely these were not thickened fol ds. This may be the varicose vein. Antrum was inflamed and there was a demarcation between the ant rum and the hyperemic patch in the distal part of the body of the stomach. One biopsy taken from th e hyperemic patch and one from the antrum to rule out MALToma. Duodenum first and second part was w ithin normal limits. Retroversion done. Again, multiple thickened folds identified in the fundal a ericka. This needs to be confirmed with EUS. Scope was straightened out and removed and a 7-shooter w as attached to the tip of the scope. It was reintroduced and 3 columns of veins were successfully b anded. No vein was left behind. Scope was removed with excellent patient tolerance. IMPRESSION: 1. Grade IV esophageal varicose veins with red lizbet positive sign, successfully banded. 2. Multiple folds in the fundal and the proximal part of the body of the stomach. Most probably th is represents gastric varicose vein, which needs to be confirmed with endoscopic ultrasound. 3. Gastritis. 4. Normal duodenum. PLAN: Review histopathology. Continue present care and will make arrangements for EUS. Dictated By: LAURA JOHNSTON/REI Conf#: [id number] DID#: [id number] CC: LYNETTE SAINZ MD;*EndCC*
--- NOTE | 2017-03-03 23:19 | PN ---
Date/Time of Note Date/Time of Note DATE: 03/03/17 TIME: 23:18 Assessment/Plan VTE Prophylaxis VTE Prophylaxis Intervention: other Lines/Catheters IV C[facility]ter Type (from [facility]): Peripheral IV Urinary Cath still in place: No Assessment/Plan Chief Complaint/Hosp Course IMPRESSION: 1. Patient has cirrhosis of the liver. 2. The patient has nausea and vomiting, possibly due to ascites, cirrhosis of the liver. 3. Other diagnosis hypokalemia. 4. Other diagnosis, the patient has anemia, thrombocytopenia. 5 abd pain w ascites better plan s/p paracentesis per gi Problems: Subjective 24 Hr Interval Summary Cardiovascular: no complaints Gastrointestinal: no complaints Exam/Review of Systems Vital Signs Vitals Vital Signs Date Time Temp Pulse Resp B/P Pulse Ox O2 Delivery O2 Flow Rate FiO2 03/03/17 20:48 98.1 85 18 89/55 98 03/03/17 13:43 Room Air 02/27/17 21:28 2.0 Intake and Output 03/02/17 03/02/17 03/03/17 15:00 23:00 07:00 Intake Total 2020 ml 760 ml Balance 2020 ml 760 ml Exam Respiratory: clear to auscultation Cardiovascular: regular rate and rhythm Gastrointestinal: soft Musculoskeletal: nl extremities to inspection Results Result Diagram: 03/03/17 0440 03/03/17 0440 Results 24 hrs Laboratory Tests Test 03/03/17 04:40 03/03/17 08:17 03/03/17 12:03 03/03/17 18:04 White Blood Count 5.7 # Red Blood Count 3.05 L Hemoglobin 10.2 L Hematocrit 30.4 L Mean Corpuscular Volume 99.7 Mean Corpuscular Hemoglobin 33.4 H Mean Corpuscular Hemoglobin Concent 33.6 Red Cell Distribution Width 14.4 Platelet Count 90 L Mean Platelet Volume 9.4 Neutrophils % 64.3 Lymphocytes % 25.2 Monocytes % 8.5 Eosinophils % 1.1 Basophils % 0.7 Nucleated Red Blood Cells % 0.0 Neutrophils # 3.7 Lymphocytes # 1.4 Monocytes # 0.5 Eosinophils # 0.1 Basophils # 0.0 Nucleated Red Blood Cells # 0.0 Sodium Level 139 Potassium Level 3.3 L Chloride Level 111 H Carbon Dioxide Level 23 Anion Gap 8 Blood Urea Nitrogen 5 L Creatinine 0.63 Glucose Level 125 Calcium Level 8.0 L Total Bilirubin 1.4 H Direct Bilirubin 0.00 Indirect Bilirubin 1.4 H Aspartate Amino Transf (AST/SGOT) 27 Alanine Aminotransferase (ALT/SGPT) 28 Alkaline Phosphatase 73 Total Protein 4.8 L Albumin 2.1 L Globulin 2.70 Albumin/Globulin Ratio 0.77 Bedside Glucose 127 134 123 Test 03/03/17 20:38 Bedside Glucose 145 Medications Medications Current Medications Dextrose/Sodium Chloride (D5-1/2ns) 1,000 ml @ 60 mls/hr [id number] IV Last administered on 03/03/17 09:56; Admin Dose 60 MLS/HR; Start 02/28/17 at 00:00 Ondansetron HCl (Zofran Inj) 4 mg Q4H PRN IV NAUSEA AND/OR VOMITING Last administered on 03/02/17 21:51; Admin Dose 4 MG; Start 02/28/17 at 00:00 Pantoprazole (Protonix Iv) 40 mg DAILY@06 IV Last administered on 03/03/17 06: 10; Admin Dose 40 MG; Start 02/28/17 at 06:00 Lactulose (Enulose) 30 gm BID PO Last administered on 03/03/17 20:40; Admin Dose 30 GM; Start 02/28/17 at 09:00 Hydromorphone HCl (Dilaudid) 0.5 mg Q4H PRN IV PAIN; Start 02/28/17 at 00:00 Diagnostic Test (Pha) (Accu-Chek) 1 ea 02 XX ; Start 02/28/17 at 02:00 Miscellaneous Information 1 ea NOTE XX ; Start 02/28/17 at 00:30 Glucose (Glutose) 15 gm Q15M PRN PO DECREASED GLUCOSE; Start 02/28/17 at 00:30 Glucose (Glutose) 22.5 gm Q15M PRN PO DECREASED GLUCOSE; Start 02/28/17 at 00:30 Dextrose (D50w Syringe) 25 ml Q15M PRN IV DECREASED GLUCOSE; Start 02/28/17 at 00:30 Dextrose (D50w Syringe) 50 ml Q15M PRN IV DECREASED GLUCOSE; Start 02/28/17 at 00:30 Glucagon (Glucagen) 1 mg Q15M PRN IM DECREASED GLUCOSE; Start 02/28/17 at 00:30 Glucose (Glutose) 15 gm Q15M PRN BUCCAL DECREASED GLUCOSE; Start 02/28/17 at 00: 30 Spironolactone (Aldactone) 50 mg DAILY PO Last administered on 03/02/17 08:27; Admin Dose 50 MG; Start 03/01/17 at 09:00 Morphine Sulfate (morphine) 2 mg Q4H PRN IV PAIN Last administered on 03/02/17 21:47; Admin Dose 2 MG; Start 02/28/17 at 18:30 Mycophenolate Mofetil (Cellcept) 500 mg Q8 PO Last administered on 03/03/17 21: 31; Admin Dose 500 MG; Start 03/01/17 at 06:00 LYNETTE SAINZ MD Mar 03, 2017 23:19
[2017-03-04] MEDS: ACCU-CHEK XX SCH (02:00)
[2017-03-04] MEDS: DEXTROSE 5%-0.45% NACL 1,000 ML IV SCH ×2 (03:56→21:00)
[2017-03-04] MEDS: PANTOPRAZOLE 40 MG INJ IV SCH (05:05)
[2017-03-04] MEDS: MYCOPHENOLATE 250 MG CAP PO SCH ×3 (05:05→21:08)
[2017-03-04 06:21] LABS: CALCIUM 8.3 mg/dl (8.4-10.2); CREATININE 0.62 mg/dl (0.44-1.00); POTASSIUM 3.5 mmol/L (3.5-5.1)
[2017-03-04 07:30] VITALS: BP 100/72; RESP 18
[2017-03-04] MEDS: LACTULOSE 30ML CUP PO SCH ×2 (09:26→21:04)
[2017-03-04] MEDS: SPIRONOLACTONE 50 MG TAB PO SCH (09:26)
[2017-03-04] MEDS: INSULIN ASPART [NOVOLOG] 3 ML PEN SC SCH ×4 (09:27→21:00)
--- NOTE | 2017-03-04 11:24 | RADRPT ---
AMENDMENT: 03/04/2017 11:27:26 AM Tho Nassar M.D Note: A telephone message was left for Shree Nieto on 03/04/2017 11:25:10 AM. PROCEDURE: US DVT. CLINICAL INDICATION: Bilateral lower extremity pain and swelling. TECHNIQUE: Multiple longitudinal and transverse images of the bilateral lower extremity veins were obtained with kamara scale and color Doppler imaging. 2D grayscale measurements with compression, co jose Doppler flow, and augmentation was performed. The calf veins were interrogated as well. COMPARISON: No prior studies are available for comparison. FINDINGS: The left common femoral, superficial femoral and popliteal veins are normally compressible throughou t. Color flow demonstrates normal filling of the vessel. Normal waveforms are visualized and there is normal response to augmentation. The right popliteal veins are normally compressible throughout. Color flow demonstrates normal fill ing of the vessel. Normal waveforms are visualized and there is normal response to augmentation. Th e common femoral and superficial femoral veins are not compressible with some filling defects presen t. IMPRESSION: 1. Thrombus in the right common femoral and superficial femoral veins. 2. Normal left lower extremity venous duplex ultrasound without evidence of deep venous thrombosis. RPTAT: [facility] Physician Dante Date Time Electronically viewed and signed by Physician Dante on 03/04/2017 11:27 /
[2017-03-04] MEDS: morphine 2 MG INJ IV PRN (12:25)
[2017-03-04] MEDS: ONDANSETRON 4 MG INJ IV PRN (12:40)
[2017-03-04] MEDS: ENOXAPARIN 100 MG/ML SYG SC SCH ×2 (14:59→21:07)
--- NOTE | 2017-03-04 17:40 | PN ---
Date/Time of Note Date/Time of Note DATE: 03/04/17 TIME: 17:38 Assessment/Plan VTE Prophylaxis VTE Prophylaxis Intervention: other Lines/Catheters IV [facility] Peripheral IV Urinary Cath still in place: No Assessment/Plan Chief Complaint/Hosp Course IMPRESSION: 1. Patient has cirrhosis of the liver. 2. The patient has nausea and vomiting, possibly due to ascites, cirrhosis of the liver. 3. Other diagnosis hypokalemia. 4. Other diagnosis, the patient has anemia, thrombocytopenia. 5 abd pain w ascites better 6 uti dvt rt leg plan s/p paracentesis per gi lovenox Problems: Subjective 24 Hr Interval Summary Respiratory: no complaints Cardiovascular: no complaints Musculoskeletal: bone/joint pain Skin: other (edema legs) Exam/Review of Systems Vital Signs Vitals Vital Signs Date Time Temp Pulse Resp B/P Pulse Ox O2 Delivery O2 Flow Rate FiO2 03/04/17 07:30 98.6 76 18 100/72 96 03/03/17 13:43 Room Air Intake and Output 03/03/17 03/03/17 03/04/17 15:00 23:00 07:00 Intake Total 492 ml 1150 ml 580 ml Balance 492 ml 1150 ml 580 ml Exam Respiratory: diminished breath sounds Cardiovascular: regular rate and rhythm Gastrointestinal: soft Genitourinary - Female: nl adnexae Musculoskeletal: nl extremities to inspection Extremities: edema (++) Results Result Diagram: 03/03/17 0440 03/04/17 0525 Results 24 hrs Laboratory Tests Test 03/03/17 18:04 03/03/17 20:38 03/04/17 05:25 03/04/17 08:15 Bedside Glucose 123 145 151 Sodium Level 140 Potassium Level 3.5 Chloride Level 111 H Carbon Dioxide Level 22 Anion Gap 11 Blood Urea Nitrogen 3 L Creatinine 0.62 Glucose Level 167 Calcium Level 8.3 L Test 03/04/17 12:21 Bedside Glucose 155 Medications Medications Current Medications Dextrose/Sodium Chloride (D5-1/2ns) 1,000 ml @ 60 mls/hr [id number] IV Last administered on 03/04/17 03:56; Admin Dose 60 MLS/HR; Start 02/28/17 at 00:00 Ondansetron HCl (Zofran Inj) 4 mg Q4H PRN IV NAUSEA AND/OR VOMITING Last administered on 03/04/17 12:40; Admin Dose 4 MG; Start 02/28/17 at 00:00 Pantoprazole (Protonix Iv) 40 mg DAILY@06 IV Last administered on 03/04/17 05: 05; Admin Dose 40 MG; Start 02/28/17 at 06:00 Lactulose (Enulose) 30 gm BID PO Last administered on 03/04/17 09:26; Admin Dose 30 GM; Start 02/28/17 at 09:00 Hydromorphone HCl (Dilaudid) 0.5 mg Q4H PRN IV PAIN; Start 02/28/17 at 00:00 Diagnostic Test (Pha) (Accu-Chek) 1 ea 02 XX ; Start 02/28/17 at 02:00 Miscellaneous Information 1 ea NOTE XX ; Start 02/28/17 at 00:30 Glucose (Glutose) 15 gm Q15M PRN PO DECREASED GLUCOSE; Start 02/28/17 at 00:30 Glucose (Glutose) 22.5 gm Q15M PRN PO DECREASED GLUCOSE; Start 02/28/17 at 00:30 Dextrose (D50w Syringe) 25 ml Q15M PRN IV DECREASED GLUCOSE; Start 02/28/17 at 00:30 Dextrose (D50w Syringe) 50 ml Q15M PRN IV DECREASED GLUCOSE; Start 02/28/17 at 00:30 Glucagon (Glucagen) 1 mg Q15M PRN IM DECREASED GLUCOSE; Start 02/28/17 at 00:30 Glucose (Glutose) 15 gm Q15M PRN BUCCAL DECREASED GLUCOSE; Start 02/28/17 at 00: 30 Spironolactone (Aldactone) 50 mg DAILY PO Last administered on 03/04/17 09:26; Admin Dose 50 MG; Start 03/01/17 at 09:00 Morphine Sulfate (morphine) 2 mg Q4H PRN IV PAIN Last administered on 03/04/17 12:25; Admin Dose 2 MG; Start 02/28/17 at 18:30 Mycophenolate Mofetil (Cellcept) 500 mg Q8 PO Last administered on 03/04/17 14: 58; Admin Dose 500 MG; Start 03/01/17 at 06:00 Enoxaparin Sodium (Lovenox) 85 mg Q12 SC Last administered on 03/04/17 14:59; Admin Dose 85 MG; Start 03/04/17 at 13:30 LYNETTE SAINZ MD Mar 04, 2017 17:40
[2017-03-04] MEDS: CEFTRIAXONE 1 GM/50 ML (PMX) 50 ML IVPB SCH (18:56)
[2017-03-04 20:21] VITALS: BP 94/59; RESP 18
--- NOTE | 2017-03-04 22:01 | CONS ---
Date/Time of Note Date/Time of Note DATE: 03/04/17 TIME: 22:00 Assessment/Plan Assessment/Plan Additional Assessment/Plan IMPRESSION: 1. Autoimmune hepatitis. 2. Cirrhosis of liver. 3. Portal hypertension. 4. Mild encephalopathy. 5. Diabetes mellitus. 6. Intermittent nausea and vomiting for the last 4 to 5 months. PLAN: 1. At this point, the patient definitely needs EGD, given the abnormal finding on the CAT scan with thickening of the mucosa, nausea and vomiting for the past 4 to 5 months, and abdominal pain. 2. P.O. fluid restriction. 3. P.O. sodium restriction. 4. Diuretic, both Lasix and Aldactone. 5. Continue using immunosuppressive medication for autoimmune hepatitis. 6. The patient will be also placed on lactulose for high ammonia level. Consultation Date/Type/Reason Admit Date/Time Feb 27, 2017 at 17:50 24 HR Interval Summary Constitutional: no complaints Exam/Review of Systems Vital Signs Vitals Vital Signs Date Time Temp Pulse Resp B/P Pulse Ox O2 Delivery O2 Flow Rate FiO2 03/04/17 20:21 97.9 91 18 94/59 97 03/03/17 13:43 Room Air Intake and Output 03/03/17 03/03/17 03/04/17 15:00 23:00 07:00 Intake Total 492 ml 1150 ml 580 ml Balance 492 ml 1150 ml 580 ml Exam Constitutional: alert, oriented, well developed Psych: nl mood/affect, no complaints Head: atraumatic, normocephalic Eyes: EOMI, PERRL, nl conjunctiva, nl lids, nl sclera ENMT: nl external ears & nose, nl lips & teeth, nl nasal mucosa & septum Neck: non-tender, supple Respiratory: clear to auscultation, normal air movement Cardiovascular: nl pulses, regular rate and rhythm Gastrointestinal: nl liver, spleen, non-tender, soft Musculoskeletal: nl extremities to inspection, nl gait and stance Extremities: normal pulses Neurological: MASTER OCEAN II-XII intact, nl mental status, nl speech, nl strength Skin: nl turgor, No rash or lesions Lymph: nl lymph nodes Results Result Diagram: 03/03/17 0440 03/04/17 0525 Results 24 hrs Laboratory Tests Test 03/04/17 05:25 03/04/17 08:15 03/04/17 12:21 03/04/17 18:52 Sodium Level 140 Potassium Level 3.5 Chloride Level 111 H Carbon Dioxide Level 22 Anion Gap 11 Blood Urea Nitrogen 3 L Creatinine 0.62 Glucose Level 167 Calcium Level 8.3 L Bedside Glucose 151 155 170 Test 03/04/17 21:14 Bedside Glucose 144 Medications Medications Current Medications Dextrose/Sodium Chloride (D5-1/2ns) 1,000 ml @ 60 mls/hr [id number] IV Last administered on 03/04/17 21:00; Admin Dose 60 MLS/HR; Start 02/28/17 at 00:00 Ondansetron HCl (Zofran Inj) 4 mg Q4H PRN IV NAUSEA AND/OR VOMITING Last administered on 03/04/17 12:40; Admin Dose 4 MG; Start 02/28/17 at 00:00 Pantoprazole (Protonix Iv) 40 mg DAILY@06 IV Last administered on 03/04/17 05: 05; Admin Dose 40 MG; Start 02/28/17 at 06:00 Lactulose (Enulose) 30 gm BID PO Last administered on 03/04/17 21:04; Admin Dose 30 GM; Start 02/28/17 at 09:00 Hydromorphone HCl (Dilaudid) 0.5 mg Q4H PRN IV PAIN; Start 02/28/17 at 00:00 Diagnostic Test (Pha) (Accu-Chek) 1 ea 02 XX ; Start 02/28/17 at 02:00 Miscellaneous Information 1 ea NOTE XX ; Start 02/28/17 at 00:30 Glucose (Glutose) 15 gm Q15M PRN PO DECREASED GLUCOSE; Start 02/28/17 at 00:30 Glucose (Glutose) 22.5 gm Q15M PRN PO DECREASED GLUCOSE; Start 02/28/17 at 00:30 Dextrose (D50w Syringe) 25 ml Q15M PRN IV DECREASED GLUCOSE; Start 02/28/17 at 00:30 Dextrose (D50w Syringe) 50 ml Q15M PRN IV DECREASED GLUCOSE; Start 02/28/17 at 00:30 Glucagon (Glucagen) 1 mg Q15M PRN IM DECREASED GLUCOSE; Start 02/28/17 at 00:30 Glucose (Glutose) 15 gm Q15M PRN BUCCAL DECREASED GLUCOSE; Start 02/28/17 at 00: 30 Spironolactone (Aldactone) 50 mg DAILY PO Last administered on 03/04/17 09:26; Admin Dose 50 MG; Start 03/01/17 at 09:00 Morphine Sulfate (morphine) 2 mg Q4H PRN IV PAIN Last administered on 03/04/17 12:25; Admin Dose 2 MG; Start 02/28/17 at 18:30 Mycophenolate Mofetil (Cellcept) 500 mg Q8 PO Last administered on 03/04/17 21: 08; Admin Dose 500 MG; Start 03/01/17 at 06:00 Enoxaparin Sodium 85 mg 85 mg Q12 SC Last administered on 03/04/17 21:07; Admin Dose 85 MG; Start 03/04/17 at 13:30 Ceftriaxone Sodium (Rocephin) 50 ml @ 100 mls/hr Q24H IVPB Last administered on 03/04/17 18:56; Admin Dose 100 MLS/HR; Start 03/04/17 at 18:00 LAURA RAMIREZ MD Mar 04, 2017 22:01
[2017-03-05] MEDS: ACCU-CHEK XX SCH (01:38)
[2017-03-05] MEDS: MYCOPHENOLATE 250 MG CAP PO SCH ×3 (05:41→21:56)
[2017-03-05] MEDS: PANTOPRAZOLE 40 MG INJ IV SCH (05:41)
[2017-03-05] MEDS: INSULIN ASPART [NOVOLOG] 3 ML PEN SC SCH ×4 (08:07→20:27)
[2017-03-05] MEDS: LACTULOSE 30ML CUP PO SCH ×2 (09:19→20:30)
[2017-03-05] MEDS: SPIRONOLACTONE 50 MG TAB PO SCH (09:19)
[2017-03-05] MEDS: ENOXAPARIN 100 MG/ML SYG SC SCH ×2 (09:22→20:29)
[2017-03-05 10:00] VITALS: BP 140/67; RESP 20
[2017-03-05 12:00] VITALS: BP 113/78; RESP 20
[2017-03-05] MEDS: DEXTROSE 5%-0.45% NACL 1,000 ML IV SCH (12:24)
--- NOTE | 2017-03-05 14:06 | PN ---
Date/Time of Note Date/Time of Note DATE: 03/05/17 TIME: 14:04 Assessment/Plan VTE Prophylaxis VTE Prophylaxis Intervention: ambulation Lines/Catheters IV Catheter Type (from Nrs): Peripheral IV Urinary Cath still in place: No Assessment/Plan Chief Complaint/Hosp Course 1. Patient has cirrhosis of the liver. 2. Nausea and vomiting, possibly due to ascites, cirrhosis of the liver. 3. Hypokalemia. 4. Anemia, thrombocytopenia. 5 abd pain w ascites better 6 uti Problems: Assessment/Plan 1. Continue IV fluids and meds unchanged Subjective 24 Hr Interval Summary Constitutional: poor po Gastrointestinal: decreased appetite, pain Exam/Review of Systems Vital Signs Vitals Vital Signs Date Time Temp Pulse Resp B/P Pulse Ox O2 Delivery O2 Flow Rate FiO2 03/05/17 12:00 98.6 98 20 113/78 96 03/03/17 13:43 Room Air Intake and Output 03/04/17 03/04/17 03/05/17 15:00 23:00 07:00 Intake Total 1350 ml 920 ml Balance 1350 ml 920 ml Exam Constitutional: alert, oriented Respiratory: clear to auscultation Cardiovascular: regular rate and rhythm Gastrointestinal: other (painful on palpation), soft, surgical scars Results Result Diagram: 03/03/17 0440 03/04/17 0525 Results 24 hrs Laboratory Tests Test 03/04/17 18:52 03/04/17 21:14 03/05/17 08:06 03/05/17 12:22 Bedside Glucose 170 144 158 150 Medications Medications Current Medications Dextrose/Sodium Chloride (D5-1/2ns) 1,000 ml @ 60 mls/hr [id number] IV Last administered on 03/05/17 12:24; Admin Dose 60 MLS/HR; Start 02/28/17 at 00:00 Ondansetron HCl (Zofran Inj) 4 mg Q4H PRN IV NAUSEA AND/OR VOMITING Last administered on 03/04/17 12:40; Admin Dose 4 MG; Start 02/28/17 at 00:00 Pantoprazole (Protonix Iv) 40 mg DAILY@06 IV Last administered on 03/05/17 05: 41; Admin Dose 40 MG; Start 02/28/17 at 06:00 Lactulose (Enulose) 30 gm BID PO Last administered on 03/05/17 09:19; Admin Dose 30 GM; Start 02/28/17 at 09:00 Hydromorphone HCl (Dilaudid) 0.5 mg Q4H PRN IV PAIN; Start 02/28/17 at 00:00 Diagnostic Test (Pha) (Accu-Chek) 1 ea 02 XX ; Start 02/28/17 at 02:00 Miscellaneous Information 1 ea NOTE XX ; Start 02/28/17 at 00:30 Glucose (Glutose) 15 gm Q15M PRN PO DECREASED GLUCOSE; Start 02/28/17 at 00:30 Glucose (Glutose) 22.5 gm Q15M PRN PO DECREASED GLUCOSE; Start 02/28/17 at 00:30 Dextrose (D50w Syringe) 25 ml Q15M PRN IV DECREASED GLUCOSE; Start 02/28/17 at 00:30 Dextrose (D50w Syringe) 50 ml Q15M PRN IV DECREASED GLUCOSE; Start 02/28/17 at 00:30 Glucagon (Glucagen) 1 mg Q15M PRN IM DECREASED GLUCOSE; Start 02/28/17 at 00:30 Glucose (Glutose) 15 gm Q15M PRN BUCCAL DECREASED GLUCOSE; Start 02/28/17 at 00: 30 Spironolactone (Aldactone) 50 mg DAILY PO Last administered on 03/05/17 09:19; Admin Dose 50 MG; Start 03/01/17 at 09:00 Morphine Sulfate (morphine) 2 mg Q4H PRN IV PAIN Last administered on 03/04/17 12:25; Admin Dose 2 MG; Start 02/28/17 at 18:30 Mycophenolate Mofetil (Cellcept) 500 mg Q8 PO Last administered on 03/05/17 05: 41; Admin Dose 500 MG; Start 03/01/17 at 06:00 Enoxaparin Sodium 85 mg 85 mg Q12 SC Last administered on 03/05/17 09:22; Admin Dose 85 MG; Start 03/04/17 at 13:30 Ceftriaxone Sodium (Rocephin) 50 ml @ 100 mls/hr Q24H IVPB Last administered on 03/04/17 18:56; Admin Dose 100 MLS/HR; Start 03/04/17 at 18:00 FABI OSORIO Mar 05, 2017 14:06
[2017-03-05] MEDS: CEFTRIAXONE 1 GM/50 ML (PMX) 50 ML IVPB SCH (17:05)
[2017-03-05] MEDS: morphine 2 MG INJ IV PRN (20:23)
[2017-03-05 21:24] VITALS: BP 90/58; RESP 19
--- NOTE | 2017-03-05 21:46 | CONS ---
Date/Time of Note Date/Time of Note DATE: 03/05/17 TIME: 21:43 Assessment/Plan Assessment/Plan Additional Assessment/Plan IMPRESSION: 1. Autoimmune hepatitis. 2. Cirrhosis of liver. 3. Portal hypertension. 4. Mild encephalopathy. 5. Diabetes mellitus. 6. Intermittent nausea and vomiting for the last 4 to 5 months. PLAN: 1. continue PPI and Reglan 2. P.O. fluid restriction. 3. P.O. sodium restriction. 4. Diuretic, both Lasix and Aldactone. Consultation Date/Type/Reason Admit Date/Time Feb 27, 2017 at 17:50 24 HR Interval Summary Constitutional: improved Exam/Review of Systems Vital Signs Vitals Vital Signs Date Time Temp Pulse Resp B/P Pulse Ox O2 Delivery O2 Flow Rate FiO2 03/05/17 21:24 98.6 90 19 90/58 97 03/03/17 13:43 Room Air Intake and Output 03/04/17 03/04/17 03/05/17 15:00 23:00 07:00 Intake Total 1350 ml 920 ml Balance 1350 ml 920 ml Exam Constitutional: alert, oriented, well developed Psych: nl mood/affect, no complaints Head: atraumatic, normocephalic Eyes: EOMI, PERRL, nl conjunctiva, nl lids, nl sclera ENMT: nl external ears & nose, nl lips & teeth, nl nasal mucosa & septum Neck: non-tender, supple Respiratory: clear to auscultation, normal air movement Cardiovascular: nl pulses, regular rate and rhythm Gastrointestinal: nl liver, spleen, non-tender, soft Musculoskeletal: nl extremities to inspection, nl gait and stance Extremities: normal pulses Neurological: MOBILE QA TESTER II-XII intact, nl mental status, nl speech, nl strength Skin: nl turgor, No rash or lesions Lymph: nl lymph nodes Results Result Diagram: 03/03/17 0440 03/04/17 0525 Results 24 hrs Laboratory Tests Test 03/05/17 08:06 03/05/17 12:22 03/05/17 17:04 03/05/17 20:27 Bedside Glucose 158 150 197 168 Medications Medications Current Medications Dextrose/Sodium Chloride (D5-1/2ns) 1,000 ml @ 60 mls/hr [id number] IV Last administered on 03/05/17t 12:24; Admin Dose 60 MLS/HR; Start 02/28/17 at 00:00 Ondansetron HCl (Zofran Inj) 4 mg Q4H PRN IV NAUSEA AND/OR VOMITING Last administered on 03/04/17 12:40; Admin Dose 4 MG; Start 02/28/17 at 00:00 Pantoprazole (Protonix Iv) 40 mg DAILY@06 IV Last administered on 03/05/17 05: 41; Admin Dose 40 MG; Start 02/28/17 at 06:00 Lactulose (Enulose) 30 gm BID PO Last administered on 03/05/17 20:30; Admin Dose 30 GM; Start 02/28/17 at 09:00 Hydromorphone HCl (Dilaudid) 0.5 mg Q4H PRN IV PAIN; Start 02/28/17 at 00:00 Diagnostic Test (Pha) (Accu-Chek) 1 ea 02 XX ; Start 02/28/17 at 02:00 Miscellaneous Information 1 ea NOTE XX ; Start 02/28/17 at 00:30 Glucose (Glutose) 15 gm Q15M PRN PO DECREASED GLUCOSE; Start 02/28/17 at 00:30 Glucose (Glutose) 22.5 gm Q15M PRN PO DECREASED GLUCOSE; Start 02/28/17 at 00:30 Dextrose (D50w Syringe) 25 ml Q15M PRN IV DECREASED GLUCOSE; Start 02/28/17 at 00:30 Dextrose (D50w Syringe) 50 ml Q15M PRN IV DECREASED GLUCOSE; Start 02/28/17 at 00:30 Glucagon (Glucagen) 1 mg Q15M PRN IM DECREASED GLUCOSE; Start 02/28/17 at 00:30 Glucose (Glutose) 15 gm Q15M PRN BUCCAL DECREASED GLUCOSE; Start 02/28/17 at 00: 30 Spironolactone (Aldactone) 50 mg DAILY PO Last administered on 03/05/17 09:19; Admin Dose 50 MG; Start 03/01/17 at 09:00 Morphine Sulfate (morphine) 2 mg Q4H PRN IV PAIN Last administered on 03/05/17 20:23; Admin Dose 2 MG; Start 02/28/17 at 18:30 Mycophenolate Mofetil (Cellcept) 500 mg Q8 PO Last administered on 03/05/17 14: 40; Admin Dose 500 MG; Start 03/01/17 at 06:00 Enoxaparin Sodium 85 mg 85 mg Q12 SC Last administered on 03/05/17 20:29; Admin Dose 85 MG; Start 03/04/17 at 13:30 Ceftriaxone Sodium (Rocephin) 50 ml @ 100 mls/hr Q24H IVPB Last administered on 03/05/17 17:05; Admin Dose 100 MLS/HR; Start 03/04/17 at 18:00 LAURA RAMIREZ MD Mar 05, 2017 21:46
[2017-03-05] MEDS: METOCLOPRAMIDE 10 MG INJ IV SCH (23:50)
[2017-03-06] MEDS: ACCU-CHEK XX SCH (02:00)
[2017-03-06] MEDS: PANTOPRAZOLE 40 MG INJ IV SCH (05:11)
[2017-03-06] MEDS: METOCLOPRAMIDE 10 MG INJ IV SCH ×3 (05:11→17:33)
[2017-03-06] MEDS: DEXTROSE 5%-0.45% NACL 1,000 ML IV SCH ×2 (05:11→22:15)
[2017-03-06] MEDS: MYCOPHENOLATE 250 MG CAP PO SCH ×3 (05:12→22:15)
[2017-03-06 05:25] LABS: ADD SCAN DIFF NO
[2017-03-06 05:34] LABS: BASOPHIL # 0.1 10^3/ul (0.0-0.1); BASOPHILS % 0.8 % (0.0-2.0); EOSINOPHILS # 0.1 10^3/ul (0.0-0.5); HEMATOCRIT 33.7 % (37.0-47.0); HEMOGLOBIN 11.3 g/dl (12.0-16.0); LYMPHOCYTES # 2.3 10^3/ul (0.8-2.9); LYMPHOCYTES % 39.1 % (15.0-51.0); MEAN CORPUSCULAR HEMOGLOBIN 33.1 pg (29.0-33.0); MEAN CORPUSCULAR HGB CONC 33.5 g/dl (32.0-37.0); MEAN CORPUSCULAR VOLUME 98.8 fl (82.0-101.0); MEAN PLATELET VOLUME 9.8 fl (7.4-10.4); MONOCYTE # 0.6 10^3/ul (0.3-0.9); MONOCYTES % 9.9 % (0.0-11.0); NEUTROPHIL # 2.8 10^3/ul (1.6-7.5); NEUTROPHILS % 47.7 % (39.0-77.0); PLATELET COUNT 110 10^3/UL (140-415); RED BLOOD COUNT 3.41 10^6/ul (4.20-5.40); RED CELL DISTRIBUTION WIDTH 14.4 % (11.5-14.5); WHITE BLOOD COUNT 5.9 10^3/ul (4.8-10.8)
[2017-03-06 05:44] LABS: CREATININE 0.61 mg/dl (0.44-1.00); POTASSIUM 3.5 mmol/L (3.5-5.1)
[2017-03-06 07:46] VITALS: BP_SYST 120; BP_SYST 94; BP_DIAS 57; BP_DIAS 62; RESP 16
[2017-03-06] MEDS: INSULIN ASPART [NOVOLOG] 3 ML PEN SC SCH ×4 (07:58→20:54)
[2017-03-06] MEDS: ENOXAPARIN 100 MG/ML SYG SC SCH ×2 (08:49→20:57)
[2017-03-06] MEDS: SPIRONOLACTONE 50 MG TAB PO SCH (08:50)
[2017-03-06] MEDS: LACTULOSE 30ML CUP PO SCH ×3 (08:50→20:54)
[2017-03-06 09:13] VITALS: BP 90/54; PULSE 79
--- NOTE | 2017-03-06 10:59 | PN ---
Date/Time of Note Date/Time of Note DATE: 03/06/17 TIME: 10:58 Assessment/Plan VTE Prophylaxis VTE Prophylaxis Intervention: ambulation Lines/Catheters IV Catheter Type (from Nrs): Peripheral IV Urinary Cath still in place: No Assessment/Plan Chief Complaint/Hosp Course 1. Cirrhosis of the liver. 2. Nausea and vomiting, better 3. Hypokalemia resolved 4. Anemia, thrombocytopenia. 5 abd pain w ascites, better 6 uti Problems: Assessment/Plan 1. Continue medication regime unchanged 2. labwork Subjective 24 Hr Interval Summary Constitutional: no complaints Respiratory: no complaints Cardiovascular: no complaints Gastrointestinal: pain Exam/Review of Systems Vital Signs Vitals Vital Signs Date Time Temp Pulse Resp B/P Pulse Ox O2 Delivery O2 Flow Rate FiO2 03/06/17 09:13 79 90/54 03/06/17 07:46 97.8 16 97 03/03/17 13:43 Room Air Intake and Output 03/05/17 03/05/17 03/06/17 15:00 23:00 07:00 Intake Total 520 ml 1390 ml 1110 ml Balance 520 ml 1390 ml 1110 ml Exam Constitutional: alert, oriented Respiratory: clear to auscultation Cardiovascular: regular rate and rhythm Gastrointestinal: bowel sounds, tender Results Result Diagram: 03/06/17 0435 03/06/17 0435 Results 24 hrs Laboratory Tests Test 03/05/17 12:22 03/05/17 17:04 03/05/17 20:27 03/06/17 04:35 Bedside Glucose 150 197 168 White Blood Count 5.9 Red Blood Count 3.41 L Hemoglobin 11.3 L Hematocrit 33.7 L Mean Corpuscular Volume 98.8 Mean Corpuscular Hemoglobin 33.1 H Mean Corpuscular Hemoglobin Concent 33.5 Red Cell Distribution Width 14.4 Platelet Count 110 #L Mean Platelet Volume 9.8 Neutrophils % 47.7 Lymphocytes % 39.1 Monocytes % 9.9 Eosinophils % 2.0 Basophils % 0.8 Nucleated Red Blood Cells % 0.0 Neutrophils # 2.8 Lymphocytes # 2.3 Monocytes # 0.6 Eosinophils # 0.1 Basophils # 0.1 Nucleated Red Blood Cells # 0.0 Sodium Level 138 Potassium Level 3.5 Chloride Level 112 H Carbon Dioxide Level 21 Anion Gap 9 Blood Urea Nitrogen 4 L Creatinine 0.61 Glucose Level 152 Calcium Level 8.0 L Test 03/06/17 07:49 Bedside Glucose 129 Medications Medications Current Medications Dextrose/Sodium Chloride (D5-1/2ns) 1,000 ml @ 60 mls/hr [id number] IV Last administered on 03/06/17 05:11; Admin Dose 60 MLS/HR; Start 02/28/17 at 00:00 Ondansetron HCl (Zofran Inj) 4 mg Q4H PRN IV NAUSEA AND/OR VOMITING Last administered on 03/04/17 12:40; Admin Dose 4 MG; Start 02/28/17 at 00:00 Pantoprazole (Protonix Iv) 40 mg DAILY@06 IV Last administered on 03/06/17 05: 11; Admin Dose 40 MG; Start 02/28/17 at 06:00 Lactulose (Enulose) 30 gm BID PO Last administered on 03/05/17 20:30; Admin Dose 30 GM; Start 02/28/17 at 09:00 Hydromorphone HCl (Dilaudid) 0.5 mg Q4H PRN IV PAIN; Start 02/28/17 at 00:00 Diagnostic Test (Pha) (Accu-Chek) 1 ea 02 XX ; Start 02/28/17 at 02:00 Miscellaneous Information 1 ea NOTE XX ; Start 02/28/17 at 00:30 Glucose (Glutose) 15 gm Q15M PRN PO DECREASED GLUCOSE; Start 02/28/17 at 00:30 Glucose (Glutose) 22.5 gm Q15M PRN PO DECREASED GLUCOSE; Start 02/28/17 at 00:30 Dextrose (D50w Syringe) 25 ml Q15M PRN IV DECREASED GLUCOSE; Start 02/28/17 at 00:30 Dextrose (D50w Syringe) 50 ml Q15M PRN IV DECREASED GLUCOSE; Start 02/28/17 at 00:30 Glucagon (Glucagen) 1 mg Q15M PRN IM DECREASED GLUCOSE; Start 02/28/17 at 00:30 Glucose (Glutose) 15 gm Q15M PRN BUCCAL DECREASED GLUCOSE; Start 02/28/17 at 00: 30 Spironolactone (Aldactone) 50 mg DAILY PO Last administered on 03/05/17 09:19; Admin Dose 50 MG; Start 03/01/17 at 09:00 Morphine Sulfate (morphine) 2 mg Q4H PRN IV PAIN Last administered on 03/05/17 20:23; Admin Dose 2 MG; Start 02/28/17 at 18:30 Mycophenolate Mofetil (Cellcept) 500 mg Q8 PO Last administered on 03/06/17 05 :12; Admin Dose 500 MG; Start 03/01/17 at 06:00 Enoxaparin Sodium 85 mg 85 mg Q12 SC Last administered on 03/06/17 08:49; Admin Dose 85 MG; Start 03/04/17 at 13:30 Ceftriaxone Sodium (Rocephin) 50 ml @ 100 mls/hr Q24H IVPB Last administered on 03/05/17 17:05; Admin Dose 100 MLS/HR; Start 03/04/17 at 18:00 Metoclopramide HCl (Reglan) 5 mg Q6 IV Last administered on 03/06/17 05:11; Admin Dose 5 MG; Start 03/06/17 at 00:00 FABI OSORIO Mar 06, 2017 10:59
--- NOTE | 2017-03-06 15:04 | CONS ---
Date/Time of Note Date/Time of Note DATE: 03/06/17 TIME: 15:02 Assessment/Plan Assessment/Plan Additional Assessment/Plan IMPRESSION: 1. Autoimmune hepatitis. 2. Cirrhosis of liver. 3. Portal hypertension. 4. Mild encephalopathy. 5. Diabetes mellitus. 6. Intermittent nausea and vomiting for the last 4 to 5 months. Subsided PLAN: 1. continue PPI and Reglan 2. P.O. fluid restriction. 3. P.O. sodium restriction. 4. Diuretic, both Lasix and Aldactone. 5. Discussed with the daughter we will do EUS to make sure those thickened fold are not gastric varicose vein. Consultation Date/Type/Reason Admit Date/Time Feb 27, 2017 at 17:50 24 HR Interval Summary Free Text/Dictation Abdominal pain better Nausea vomiting completely subsided Still on pured diet Exam/Review of Systems Vital Signs Vitals Vital Signs Date Time Temp Pulse Resp B/P Pulse Ox O2 Delivery O2 Flow Rate FiO2 03/06/17 09:13 79 90/54 03/06/17 07:46 97.8 16 97 03/03/17 13:43 Room Air Intake and Output 03/05/17 03/05/17 03/06/17 15:00 23:00 07:00 Intake Total 520 ml 1390 ml 1110 ml Balance 520 ml 1390 ml 1110 ml Exam Constitutional: alert, oriented, well developed Psych: nl mood/affect, no complaints Head: atraumatic, normocephalic Eyes: EOMI, PERRL, nl conjunctiva, nl lids, nl sclera ENMT: nl external ears & nose, nl lips & teeth, nl nasal mucosa & septum Neck: non-tender, supple Respiratory: clear to auscultation, normal air movement Cardiovascular: nl pulses, regular rate and rhythm Gastrointestinal: nl liver, spleen, non-tender, soft Musculoskeletal: nl extremities to inspection, nl gait and stance Extremities: normal pulses Neurological: DELI ASSOCIATE II-XII intact, nl mental status, nl speech, nl strength Skin: nl turgor, No rash or lesions Lymph: nl lymph nodes Results Result Diagram: 03/06/17 0435 03/06/17 0435 Results 24 hrs Laboratory Tests Test 03/05/17 17:04 03/05/17 20:27 03/06/17 04:35 03/06/17 07:49 Bedside Glucose 197 168 129 White Blood Count 5.9 Red Blood Count 3.41 L Hemoglobin 11.3 L Hematocrit 33.7 L Mean Corpuscular Volume 98.8 Mean Corpuscular Hemoglobin 33.1 H Mean Corpuscular Hemoglobin Concent 33.5 Red Cell Distribution Width 14.4 Platelet Count 110 #L Mean Platelet Volume 9.8 Neutrophils % 47.7 Lymphocytes % 39.1 Monocytes % 9.9 Eosinophils % 2.0 Basophils % 0.8 Nucleated Red Blood Cells % 0.0 Neutrophils # 2.8 Lymphocytes # 2.3 Monocytes # 0.6 Eosinophils # 0.1 Basophils # 0.1 Nucleated Red Blood Cells # 0.0 Sodium Level 138 Potassium Level 3.5 Chloride Level 112 H Carbon Dioxide Level 21 Anion Gap 9 Blood Urea Nitrogen 4 L Creatinine 0.61 Glucose Level 152 Calcium Level 8.0 L Test 03/06/17 12:09 Bedside Glucose 144 Medications Medications Current Medications Dextrose/Sodium Chloride (D5-1/2ns) 1,000 ml @ 60 mls/hr [id number] IV Last administered on 03/06/17 05:11; Admin Dose 60 MLS/HR; Start 02/28/17 at 00:00 Ondansetron HCl (Zofran Inj) 4 mg Q4H PRN IV NAUSEA AND/OR VOMITING Last administered on 03/04/17 12:40; Admin Dose 4 MG; Start 02/28/17 at 00:00 Pantoprazole (Protonix Iv) 40 mg DAILY@06 IV Last administered on 03/06/17 05: 11; Admin Dose 40 MG; Start 02/28/17 at 06:00 Lactulose (Enulose) 30 gm BID PO Last administered on 03/05/17 20:30; Admin Dose 30 GM; Start 02/28/17 at 09:00 Hydromorphone HCl (Dilaudid) 0.5 mg Q4H PRN IV PAIN; Start 02/28/17 at 00:00 Diagnostic Test (Pha) (Accu-Chek) 1 ea 02 XX ; Start 02/28/17 at 02:00 Miscellaneous Information 1 ea NOTE XX ; Start 02/28/17 at 00:30 Glucose (Glutose) 15 gm Q15M PRN PO DECREASED GLUCOSE; Start 02/28/17 at 00:30 Glucose (Glutose) 22.5 gm Q15M PRN PO DECREASED GLUCOSE; Start 02/28/17 at 00:30 Dextrose (D50w Syringe) 25 ml Q15M PRN IV DECREASED GLUCOSE; Start 02/28/17 at 00:30 Dextrose (D50w Syringe) 50 ml Q15M PRN IV DECREASED GLUCOSE; Start 02/28/17 at 00:30 Glucagon (Glucagen) 1 mg Q15M PRN IM DECREASED GLUCOSE; Start 02/28/17 at 00:30 Glucose (Glutose) 15 gm Q15M PRN BUCCAL DECREASED GLUCOSE; Start 02/28/17 at 00: 30 Spironolactone (Aldactone) 50 mg DAILY PO Last administered on 03/05/17 09:19; Admin Dose 50 MG; Start 03/01/17 at 09:00 Morphine Sulfate (morphine) 2 mg Q4H PRN IV PAIN Last administered on 03/05/17 20:23; Admin Dose 2 MG; Start 02/28/17 at 18:30 Mycophenolate Mofetil (Cellcept) 500 mg Q8 PO Last administered on 03/06/17 13 :19; Admin Dose 500 MG; Start 03/01/17 at 06:00 Enoxaparin Sodium 85 mg 85 mg Q12 SC Last administered on 03/06/17 08:49; Admin Dose 85 MG; Start 03/04/17 at 13:30 Ceftriaxone Sodium (Rocephin) 50 ml @ 100 mls/hr Q24H IVPB Last administered on 03/05/17 17:05; Admin Dose 100 MLS/HR; Start 03/04/17 at 18:00 Metoclopramide HCl (Reglan) 5 mg Q6 IV Last administered on 03/06/17 12:12; Admin Dose 5 MG; Start 03/06/17 at 00:00 LAURA RAMIREZ MD Mar 06, 2017 15:04
[2017-03-06] MEDS: CEFTRIAXONE 1 GM/50 ML (PMX) 50 ML IVPB SCH (17:33)
[2017-03-06 20:42] VITALS: BP 96/56; RESP 18
[2017-03-06] MEDS: morphine 2 MG INJ IV PRN (20:58)
[2017-03-07] MEDS: METOCLOPRAMIDE 10 MG INJ IV SCH ×3 (01:06→11:45)
[2017-03-07] MEDS: ACCU-CHEK XX SCH (02:00)
[2017-03-07] MEDS: PANTOPRAZOLE 40 MG INJ IV SCH (05:03)
[2017-03-07] MEDS: MYCOPHENOLATE 250 MG CAP PO SCH ×2 (05:03→13:34)
[2017-03-07 05:19] LABS: ADD SCAN DIFF NO
[2017-03-07 05:22] LABS: BASOPHIL # 0.1 10^3/ul (0.0-0.1); BASOPHILS % 1.1 % (0.0-2.0); EOSINOPHILS # 0.1 10^3/ul (0.0-0.5); EOSINOPHILS % 1.7 % (0.0-7.0); HEMATOCRIT 33.3 % (37.0-47.0); HEMOGLOBIN 11.2 g/dl (12.0-16.0); LYMPHOCYTES # 2.6 10^3/ul (0.8-2.9); LYMPHOCYTES % 39.8 % (15.0-51.0); MEAN CORPUSCULAR HEMOGLOBIN 33.2 pg (29.0-33.0); MEAN CORPUSCULAR HGB CONC 33.6 g/dl (32.0-37.0); MEAN CORPUSCULAR VOLUME 98.8 fl (82.0-101.0); MEAN PLATELET VOLUME 9.6 fl (7.4-10.4); MONOCYTE # 0.6 10^3/ul (0.3-0.9); MONOCYTES % 9.9 % (0.0-11.0); NEUTROPHILS % 46.9 % (39.0-77.0); PLATELET COUNT 112 10^3/UL (140-415); RED BLOOD COUNT 3.37 10^6/ul (4.20-5.40); RED CELL DISTRIBUTION WIDTH 14.2 % (11.5-14.5); WHITE BLOOD COUNT 6.5 10^3/ul (4.8-10.8)
[2017-03-07 06:00] LABS: CREATININE 0.65 mg/dl (0.44-1.00); POTASSIUM 3.5 mmol/L (3.5-5.1)
[2017-03-07 07:51] VITALS: BP 95/58; RESP 16
[2017-03-07] MEDS: SPIRONOLACTONE 50 MG TAB PO SCH (08:39)
[2017-03-07] MEDS: LACTULOSE 30ML CUP PO SCH (08:43)
[2017-03-07] MEDS: ENOXAPARIN 100 MG/ML SYG SC SCH (08:44)
[2017-03-07] MEDS: INSULIN ASPART [NOVOLOG] 3 ML PEN SC SCH ×2 (08:46→11:48)
[2017-03-07] MEDS: DEXTROSE 5%-0.45% NACL 1,000 ML IV SCH (13:33)
--- NOTE | 2017-03-07 15:24 | PDOCDIS ---
Discharge Instructions CONDITION Patient Condition: Stable HOME CARE INSTRUCTIONS: Special Diet: carb control ACTIVITY: Activity Restrictions: Slowly Increase Activity FOLLOW UP/APPOINTMENTS Appointments f/u [facility] 1 wk see own pcp [address] thompson 1 wk LYNETTE SAINZ MD Mar 07, 2017 15:23
[2017-03-07] MEDS ORDERED: PANT40SU PO (15:29)
[2017-03-07] MEDS ORDERED: CIPR500T4 PO (15:29)
[2017-03-07] MEDS ORDERED: APIX5TAB PO (15:29)
[2017-03-07] MEDS ORDERED: Lactulose PO (15:29)
--- NOTE | 2017-03-07 15:36 | QN ---
Documentation Comment [id number] LYNETTE SAINZ MD Mar 07, 2017 15:36
--- NOTE | 2017-03-07 19:07 | CONS ---
Date/Time of Note Date/Time of Note DATE: 03/07/17 TIME: 19:06 Assessment/Plan Assessment/Plan Additional Assessment/Plan IMPRESSION: 1. Autoimmune hepatitis. 2. Cirrhosis of liver. 3. Portal hypertension. 4. Mild encephalopathy. 5. Diabetes mellitus. 6. Intermittent nausea and vomiting for the last 4 to 5 months. Subsided PLAN: 1. continue PPI and Reglan 2. P.O. fluid restriction. 3. P.O. sodium restriction. 4. Diuretic, both Lasix and Aldactone. 5. Discussed with the daughter we will do EUS to make sure those thickened fold are not gastric varicose vein. pt was seen by me in the morning Consultation Date/Type/Reason Admit Date/Time Feb 27, 2017 at 17:50 24 HR Interval Summary Constitutional: no complaints Exam/Review of Systems Vital Signs Vitals Vital Signs Date Time Temp Pulse Resp B/P Pulse Ox O2 Delivery O2 Flow Rate FiO2 03/07/17 07:51 97.7 84 16 95/58 96 03/03/17 13:43 Room Air Intake and Output 03/06/17 03/06/17 03/07/17 15:00 23:00 07:00 Intake Total 1490 ml 770 ml Balance 1490 ml 770 ml Exam Constitutional: alert, oriented, well developed Psych: nl mood/affect, no complaints Head: atraumatic, normocephalic Eyes: EOMI, PERRL, nl conjunctiva, nl lids, nl sclera ENMT: nl external ears & nose, nl lips & teeth, nl nasal mucosa & septum Neck: non-tender, supple Respiratory: clear to auscultation, normal air movement Cardiovascular: nl pulses, regular rate and rhythm Gastrointestinal: nl liver, spleen, non-tender, soft Musculoskeletal: nl extremities to inspection, nl gait and stance Extremities: normal pulses Neurological: DENTAL INTERNSHIP II-XII intact, nl mental status, nl speech, nl strength Skin: nl turgor, No rash or lesions Lymph: nl lymph nodes Results Result Diagram: 03/07/170 03/07/17409 Results 24 hrs Laboratory Tests Test 03/06/17 20:53 03/07/17 04:10 03/07/17 07:57 03/07/17 11:44 Bedside Glucose 175 163 187 White Blood Count 6.5 Red Blood Count 3.37 L Hemoglobin 11.2 L Hematocrit 33.3 L Mean Corpuscular Volume 98.8 Mean Corpuscular Hemoglobin 33.2 H Mean Corpuscular Hemoglobin Concent 33.6 Red Cell Distribution Width 14.2 Platelet Count 112 L Mean Platelet Volume 9.6 Neutrophils % 46.9 Lymphocytes % 39.8 Monocytes % 9.9 Eosinophils % 1.7 Basophils % 1.1 Nucleated Red Blood Cells % 0.0 Neutrophils # 3.0 Lymphocytes # 2.6 Monocytes # 0.6 Eosinophils # 0.1 Basophils # 0.1 Nucleated Red Blood Cells # 0.0 Sodium Level 139 Potassium Level 3.5 Chloride Level 113 H Carbon Dioxide Level 22 Anion Gap 8 Blood Urea Nitrogen 6 L Creatinine 0.65 Glucose Level 172 Calcium Level 8.0 L Ammonia 16 # LAURA RAMIREZ MD Mar 07, 2017 19:07
--- NOTE | 2017-03-07 19:37 | DS ---
DATE OF ADMISSION: 02/27/2017 DATE OF DISCHARGE: 03/07/2017 HOSPITAL COURSE: Ms. Youngblood who was admitted with diagnosis of cirrhosis of the liver, nausea, vom iting. The patient has hypokalemia, also has anemia. The patient has history of autoimmune hepatit is, on CellCept. The patient was seen by Dr. Josue in consultation. The patient underwent EGD as well as paracentesis. Paracentesis shows transudative fluid, but patient had a UTI and started on C ipro. The patient also has lower extremity edema and pain, noted to have deep venous thrombosis of the right lower extremity. The patient's ultrasound shows patient has thrombosis of the right commo n femoral and superficial femoral vein. The patient has CT of the abdomen and pelvis done shows asc ites, no dilution from liver, cholelithiasis without CT evidence of cholecystitis. DISCHARGE DIAGNOSES: Include: 1. The patient has cirrhosis of liver. 2. Autoimmune hepatitis on immunosuppression. 3. Deep venous thrombosis, right lower extremity. 4. Portal hypertension. 5. Encephalopathy. 6. Diabetes mellitus. 7. The patient has hepatic encephalopathy. 8. The patient has anemia. 9. Status post EGD. 10. Status post paracentesis. The patient discharged. DISCHARGE MEDICATIONS: Continue home medication. Prescription for: 2. Apixaban. 2. Ciprofloxacin. 3. Protonix. 4. Lactulose was given. FOLLOWUP: The patient to follow with primary care doctor, Dr. Josue, and [facility]. Dictated By: LYNETTE SAINZ MD BS/NTS Conf#: [id number] DID#: [id number]
[2017-03-08] MEDS ORDERED: PANTOPRAZOLE (EC) 40 MG TAB PO SCH (06:00)
== END 2017-03-07 17:17 | disposition home or self-care (01) | DRG 433 ==
LOC: E/R 14:54 → PP2 17:50
PROVIDERS: ADMIT Internal Medicine Nephrology; ATTEND Internal Medicine Nephrology
PROC: 0W9G3ZX Drainage of Peritoneal Cavity, Percutaneous Approach, Diagnostic (ICD-10-PCS; 2017-03-02)
PROC: 0DB68ZX Excision of Stomach, Via Natural or Artificial Opening Endoscopic, Diagnostic (ICD-10-PCS; 2017-03-03)
PROC: 06L34CZ Occlusion of Esophageal Vein with Extraluminal Device, Percutaneous Endoscopic Approach (ICD-10-PCS; principal; 2017-03-03 13:00)
DX: K74.69 Other cirrhosis of liver (principal); N39.0 Urinary tract infection, site not specified; R18.8 Other ascites; I82.411 Acute embolism and thrombosis of right femoral vein; I85.10 Secondary esophageal varices without bleeding; K76.6 Portal hypertension; D69.6 Thrombocytopenia, unspecified; K72.90 Hepatic failure, unspecified without coma; K75.4 Autoimmune hepatitis; E87.6 Hypokalemia; D64.9 Anemia, unspecified; E11.9 Type 2 diabetes mellitus without complications; K29.70 Gastritis, unspecified, without bleeding; E66.9 Obesity, unspecified; Z68.34 Body mass index [BMI] 34.0-34.9, adult
CPT/HCPCS: 71010; 74176; 76705; 80048; 80053; 81003; 82140; 82962; 83605; 83615; 83690; 84157; 84484; 85025; 85610; 85730; 87040; 87070; 87086; 87102; 87116; 88305; 88312; 89050; 93005; 93970; 96361; 96374; 96375; 96376; C9113; J0696; J0744; J1650; J1815; J2270; J2405; J2765; J3480; J7030; J7042; J7517; P9047

== ENCOUNTER 2017-03-15 23:35 | Inpatient (IN) | payer OTHER ==
[~2017-03-15] VITALS: Ht 157.5 cm; Wt 62.0 kg
[~2017-03-15 23:35] MED LIST changes: +APIX5TAB PO; +CIPR500T4 PO; -LACT20SO2 PO; +Lactulose PO; +PANT40SU PO
[2017-03-16 02:26] VITALS: BP 103/58; RESP 18
[2017-03-16 02:28] VITALS: Ht 157.5 cm; Wt 62.0 kg
[2017-03-16] MEDS ORDERED: MECLIZINE 25 MG TAB PO PRN (04:00)
[2017-03-16] MEDS ORDERED: DICYCLOMINE 10 MG CAP PO PRN (04:00)
[2017-03-16] MEDS ORDERED: GLUCOSE GEL 15 GRAM TUBE BUCCAL PRN (04:30)
[2017-03-16] MEDS ORDERED: DEXTROSE 50% 50 ML SYRINGE IV PRN ×2 (04:30)
[2017-03-16] MEDS ORDERED: LACTULOSE 30ML CUP PO PRN (04:30)
[2017-03-16] MEDS ORDERED: GLUCOSE GEL 15 GRAM TUBE PO PRN ×2 (04:30)
[2017-03-16] MEDS ORDERED: GLUCAGON 1 MG INJ IM PRN (04:30)
[2017-03-16] MEDS ORDERED: ACETAMINOPHEN 325 MG TAB PO PRN (04:30)
[2017-03-16] MEDS ORDERED: FUROSEMIDE 20 MG TAB PO SCH (06:00)
[2017-03-16] MEDS: PANTOPRAZOLE (EC) 40 MG TAB PO SCH (06:03)
[2017-03-16 07:28] VITALS: BP 97/60; RESP 18
[2017-03-16 08:05] LABS: ADD SCAN DIFF NO
[2017-03-16 08:11] LABS: BASOPHILS % 0.7 % (0.0-2.0); EOSINOPHILS # 0.1 10^3/ul (0.0-0.5); EOSINOPHILS % 1.7 % (0.0-7.0); HEMATOCRIT 27.8 % (37.0-47.0); HEMOGLOBIN 9.8 g/dl (12.0-16.0); LYMPHOCYTES # 1.6 10^3/ul (0.8-2.9); LYMPHOCYTES % 25.7 % (15.0-51.0); MEAN CORPUSCULAR HEMOGLOBIN 33.6 pg (29.0-33.0); MEAN CORPUSCULAR HGB CONC 35.3 g/dl (32.0-37.0); MEAN CORPUSCULAR VOLUME 95.2 fl (82.0-101.0); MEAN PLATELET VOLUME 9.2 fl (7.4-10.4); MONOCYTE # 0.5 10^3/ul (0.3-0.9); MONOCYTES % 8.3 % (0.0-11.0); NEUTROPHIL # 3.8 10^3/ul (1.6-7.5); NEUTROPHILS % 63.1 % (39.0-77.0); PLATELET COUNT 124 10^3/UL (140-415); RED BLOOD COUNT 2.92 10^6/ul (4.20-5.40); RED CELL DISTRIBUTION WIDTH 14.6 % (11.5-14.5)
[2017-03-16] MEDS: INSULIN ASPART [NOVOLOG] 3 ML PEN SC SCH ×4 (08:15→20:18)
[2017-03-16 08:31] LABS: CALCIUM 8.6 mg/dl (8.4-10.2); CREATININE 1.54 mg/dl (0.44-1.00); POTASSIUM 3.2 mmol/L (3.5-5.1)
[2017-03-16] MEDS ORDERED: SPIRONOLACTONE 50 MG TAB NGT SCH (09:00)
[2017-03-16] MEDS: MYCOPHENOLATE 250 MG CAP PO SCH ×3 (10:37→20:15)
[2017-03-16] MEDS: APIXABAN 5 MG TABLET PO SCH ×2 (10:38→20:16)
[2017-03-16 10:40] VITALS: BP 98/61; PULSE 80
[2017-03-16] MEDS: ONDANSETRON 4 MG INJ IV PRN (12:44)
--- NOTE | 2017-03-16 17:42 | HP ---
DATE OF ADMISSION: 03/16/2017 HISTORY OF PRESENT ILLNESS: Eloise Youngblood is a female who [facility] [place] with diagnosis of deep venous thrombosis of lower extremity. The patient noted to have autoimmune hepatitis, cirrhosis of the liver, ascites, status post paracentesis, history of diabetes mellitus admitted to [facility]. The patient was recently discharged from the ER from [facility]. Also, patient presented [facility] and noted to have electrolyte imbalance, transferred here for further management. PAST MEDICAL HISTORY: Positive for deep venous thrombosis with right lower extremity, history of ce llulitis, hypertension, diabetes mellitus, cirrhosis and autoimmune hepatitis. The patient has a hi story of paracentesis. The patient also has history of anasarca and electrolyte imbalance. The pat ient has underlying CKD and anemia. ALLERGY HISTORY: Reported as negative at this point. FAMILY HISTORY: Negative. SOCIAL HISTORY: Negative. MEDICATION HISTORY: 1. Apixaban. 2. Cipro. 3. Bentyl. 4. Docusate sodium. 5. Estrogens. 6. Lasix. 7. Insulin. 8. The patient is on lactulose. 9. Meclizine. 10. Metformin. 11. CellCept. 12. Protonix. 13. Prednisone. REVIEW OF SYSTEMS: HEENT: Unremarkable. RESPIRATORY: Unremarkable. CARDIOVASCULAR: Unremarkable. ABDOMEN: Abdominal pain on and off. EXTREMITIES: Unremarkable except swelling of both lower extremities, right more than the left. CENTRAL NERVOUS SYSTEM: Unremarkable. PHYSICAL EXAMINATION: GENERAL: Pale-looking female, awake, alert. VITAL SIGNS: Stable. HEAD: Atraumatic, normocephalic. Pupils equal, reactive to light. NECK: Supple. There is no JVD. LUNGS: Clear. CARDIOVASCULAR: S1, S2 normal. ABDOMEN: Distended. Bowel sounds positive. EXTREMITIES: No cyanosis, clubbing or edema. Positive of both lower extremities, right more than t he left. CENTRAL NERVOUS SYSTEM: The patient is awake, alert, no focal deficit. LABORATORY DATA: From [facility], bilirubin 2.4, albumin 2.4, AST 46, ALT 30. Sodium 130 and potassium 3.6, BUN 18, creatinine 1.8, calcium 9.2. Ammonia 38, hematocrit 32.5. IMPRESSION: The patient has ascites, anasarca, deep venous thrombosis of the lower extremities. Un derlying possible chronic kidney disease, abnormal liver function tests, anemia, diabetes mellitus a nd autoimmune hepatitis. The patient has underlying chronic kidney disease. PLAN: To obtain gastroenterology consultation. Continue diuretics. Fluid restriction. Abdomen, p ossible paracentesis. Orders were done. DIAGNOSTIC DATA: Patient had an ultrasound of the abdomen done shows cirrhotic liver with moderate amount of ascites. The appendix is not visualized. Dictated By: LYNETTE BURNS/REI Conf#: [id number] DID#: [id number]
[2017-03-16 19:55] VITALS: BP 99/61; RESP 18
[2017-03-16] MEDS: POTASSIUM CHLORIDE (SR) 20 MEQ TAB PO SCH (20:15)
[2017-03-16] MEDS: INSULIN GLARGINE [LANtus] 3 ML PEN SC SCH (20:18)
[2017-03-17] MEDS: ACCU-CHEK XX SCH (01:46)
[2017-03-17] MEDS: PANTOPRAZOLE (EC) 40 MG TAB PO SCH (05:57)
[2017-03-17] MEDS: FUROSEMIDE 40 MG INJ IV SCH ×2 (05:58→17:30)
[2017-03-17 06:04] LABS: ADD SCAN DIFF NO
[2017-03-17 06:15] LABS: BASOPHIL # 0.1 10^3/ul (0.0-0.1); BASOPHILS % 0.9 % (0.0-2.0); EOSINOPHILS # 0.1 10^3/ul (0.0-0.5); EOSINOPHILS % 1.1 % (0.0-7.0); HEMATOCRIT 30.7 % (37.0-47.0); HEMOGLOBIN 10.3 g/dl (12.0-16.0); LYMPHOCYTES # 1.8 10^3/ul (0.8-2.9); LYMPHOCYTES % 30.9 % (15.0-51.0); MEAN CORPUSCULAR HEMOGLOBIN 32.4 pg (29.0-33.0); MEAN CORPUSCULAR HGB CONC 33.6 g/dl (32.0-37.0); MEAN CORPUSCULAR VOLUME 96.5 fl (82.0-101.0); MEAN PLATELET VOLUME 9.5 fl (7.4-10.4); MONOCYTE # 0.5 10^3/ul (0.3-0.9); MONOCYTES % 8.8 % (0.0-11.0); NEUTROPHIL # 3.3 10^3/ul (1.6-7.5); NEUTROPHILS % 57.8 % (39.0-77.0); PLATELET COUNT 135 10^3/UL (140-415); RED BLOOD COUNT 3.18 10^6/ul (4.20-5.40); WHITE BLOOD COUNT 5.7 10^3/ul (4.8-10.8)
[2017-03-17 06:53] LABS: ALBUMIN 2.5 g/dl (3.3-4.9); ALBUMIN/GLOBULIN RATIO 0.92; BILIRUBIN,INDIRECT 1.2 mg/dl (0-1.1); BILIRUBIN,TOTAL 1.2 mg/dl (0.2-1.3); CALCIUM 8.6 mg/dl (8.4-10.2); CREATININE 1.55 mg/dl (0.44-1.00); POTASSIUM 3.6 mmol/L (3.5-5.1); TOTAL PROTEIN 5.2 g/dl (6.1-8.1)
[2017-03-17] MEDS: INSULIN ASPART [NOVOLOG] 3 ML PEN SC SCH ×4 (08:15→22:40)
[2017-03-17 08:19] VITALS: BP 91/57; RESP 16
[2017-03-17] MEDS: MYCOPHENOLATE 250 MG CAP PO SCH ×3 (09:02→22:19)
[2017-03-17] MEDS: SPIRONOLACTONE 50 MG TAB PO SCH (09:02)
[2017-03-17] MEDS: APIXABAN 5 MG TABLET PO SCH ×2 (09:02→22:20)
[2017-03-17] MEDS: POTASSIUM CHLORIDE (SR) 20 MEQ TAB PO SCH ×2 (09:03→22:20)
[2017-03-17] MEDS: HYDROCODONE/APAP (10/325) TAB GTB PRN ×2 (11:33→22:37)
[2017-03-17 12:52] LABS: INR 2.56; PARTIAL THROMBOPLASTIN TIME 34.6 Sec (25.0-35.0); PROTIME 27.8 Sec (12.2-14.2); PT RATIO 2.2
[2017-03-17] MEDS: ONDANSETRON 4 MG INJ IV PRN ×2 (12:56→19:04)
[2017-03-17 13:01] VITALS: BP 95/64; PULSE 83
[2017-03-17] MEDS ORDERED: HYDROmorphONE 1 MG/ML SYG IV PRN (13:30)
[2017-03-17 17:31] VITALS: BP 111/67; PULSE 68
[2017-03-17] MEDS: HYDROmorphONE 1 MG/ML SYG IV PRN ×2 (19:04→23:48)
[2017-03-17 19:40] VITALS: BP 107/73; RESP 18
--- NOTE | 2017-03-17 20:25 | CONS ---
DATE OF ADMISSION: 03/16/2017 DATE OF CONSULTATION: TYPE OF CONSULTATION: Gastroenterology. REFERRING PHYSICIAN: Shree Sainz MD Dear Shree, thank you for the referral. HISTORY OF PRESENT ILLNESS: The patient is a 61-year-old female with a history of autoimmune hepati tis, on immunosuppressive medication, portal hypertension with ascites, diabetes mellitus, DVT of th e right lower extremity, who was admitted to the hospital for electrolyte imbalance. The patient robbins d a paracentesis in the past. She underwent upper endoscopy which showed a thickened fold in the fu ndal area. There was a question of whether it was a varicose vein or thickened fold, so patient was advised to come to the office as an outpatient and get authorization for US so we can confirm it, a nd if it is not a varicose vein, we can do a large snare biopsy, to make sure we are not missing Men iere's disease or some kind of infiltrating process, like a lymphoma. The patient continues to have pain and nausea. PAST MEDICAL HISTORY: She has had chronic nausea for the last 6 months. The patient was scoped at another hospital, was told she had gastritis. She also has chronic pain. ALLERGIES: NEGATIVE. FAMILY HISTORY: Negative. SOCIAL HISTORY: Negative. MEDICATIONS All reviewed, she has on: 1. Apixaban. 2. Estrogen. 3. Lasix. 4. Insulin. 5. Meclizine. 6. Metformin. 7. CellCept. 8. Protonix. 9. Prednisone. PHYSICAL EXAMINATION GENERAL: Alert, awake, not in distress. VITAL SIGNS: Stable. HEENT: Unremarkable. NECK: Supple; no thyromegaly, no lymphadenopathy. CARDIOVASCULAR: No murmur, gallop or click. LUNGS: Clear. ABDOMEN: Soft, mild tenderness in the epigastric area. Bowel sounds good. No mass, upper abdomen. EXTREMITIES: No edema. CENTRAL NERVOUS SYSTEM: Grossly within normal limits. IMPRESSION 1. Chronic abdominal pain. 2. Chronic nausea. 3. Autoimmune hepatitis, with cirrhosis of the liver and portal hypertension. 4. Deep venous thrombosis for which she is on Eliquis. 5. Diabetes mellitus. PLAN: At this point, is to continue present care. Continue PPI. The patient will be placed on Reg garry for her nausea, which may be also related to diabetes mellitus. Gastroparesis, I am going to re view her CAT scan. If there is no varicose vein, then patient needs to multiple biopsies from thick ened fold. Dictated By: LAURA JOHNSTON/NTS Conf#: [id number] DID#: [id number] CC: SHREE SAINZ MD;*EndCC*
[2017-03-17] MEDS: INSULIN GLARGINE [LANtus] 3 ML PEN SC SCH (22:37)
--- NOTE | 2017-03-17 22:37 | PN ---
Date/Time of Note Date/Time of Note DATE: 03/17/17 TIME: 22:36 Assessment/Plan VTE Prophylaxis VTE Prophylaxis Intervention: other Lines/Catheters IV C[facility]ter Type (from [facility]): Saline Lock Assessment/Plan Chief Complaint/Hosp Course IMPRESSION: The patient has ascites, anasarca, deep venous thrombosis of the lower extremities. Underlying possible chronic kidney disease, abnormal liver function tests, anemia, diabetes mellitus and autoimmune hepatitis. The patient has underlying chronic kidney disease. plan paracentesis Problems: Subjective 24 Hr Interval Summary Cardiovascular: no complaints Gastrointestinal: pain (+) Exam/Review of Systems Vital Signs Vitals Vital Signs Date Time Temp Pulse Resp B/P Pulse Ox O2 Delivery O2 Flow Rate FiO2 03/17/17 19:40 97.4 78 18 107/73 97 Intake and Output 03/16/17 03/16/17 03/17/17 15:00 23:00 07:00 Intake Total 640 ml 680 ml Output Total 800 ml 700 ml Balance -160 ml -20 ml Exam Respiratory: clear to auscultation Cardiovascular: regular rate and rhythm Gastrointestinal: bowel sounds (+), tender (+) Extremities: edema (++) Results Result Diagram: 03/17/17 0516 03/17/17 0516 Results 24 hrs Laboratory Tests Test 03/17/17 05:16 03/17/17 08:31 03/17/17 12:00 03/17/17 12:43 White Blood Count 5.7 Red Blood Count 3.18 L Hemoglobin 10.3 L Hematocrit 30.7 L Mean Corpuscular Volume 96.5 Mean Corpuscular Hemoglobin 32.4 Mean Corpuscular Hemoglobin Concent 33.6 Red Cell Distribution Width 15.0 H Platelet Count 135 L Mean Platelet Volume 9.5 Neutrophils % 57.8 Lymphocytes % 30.9 Monocytes % 8.8 Eosinophils % 1.1 Basophils % 0.9 Nucleated Red Blood Cells % 0.0 Neutrophils # 3.3 Lymphocytes # 1.8 Monocytes # 0.5 Eosinophils # 0.1 Basophils # 0.1 Nucleated Red Blood Cells # 0.0 Sodium Level 137 Potassium Level 3.6 Chloride Level 105 Carbon Dioxide Level 22 Anion Gap 14 Blood Urea Nitrogen 18 Creatinine 1.55 H Glucose Level 106 Calcium Level 8.6 Total Bilirubin 1.2 Direct Bilirubin 0.00 Indirect Bilirubin 1.2 H Aspartate Amino Transf (AST/SGOT) 43 Alanine Aminotransferase (ALT/SGPT) 25 Alkaline Phosphatase 82 Total Protein 5.2 L Albumin 2.5 L Globulin 2.70 Albumin/Globulin Ratio 0.92 Bedside Glucose 109 177 Prothrombin Time 27.8 #H Prothrombin Time Ratio 2.2 INR International Normalized Ratio 2.56 Activated Partial Thromboplast Time 34.6 Test 03/17/17 17:28 03/17/17 22:00 03/17/17 22:22 Bedside Glucose 120 138 119 Medications Medications Current Medications Dicyclomine HCl (Bentyl) 20 mg QID PRN PO ABDOMINAL DISCOMFORT; Start 03/16/17 at 04:00 Acetaminophen/ Hydrocodone Bitart ([place] ()) 1 tab Q6 PRN GTB PAIN Last administered on 03/17/17 11:33; Admin Dose 1 TAB; Start 03/16/17 at 04:00 Insulin Glargine (Lantus) 20 unit DAILY@20 SC Last administered on 03/16/17 20 :18; Admin Dose 20 UNIT; Start 03/16/17 at 20:00 Meclizine HCl (Antivert) 25 mg Q6 PRN PO DIZZINESS; Start 03/16/17 at 04:00 Miscellaneous Information 1 ea NOTE XX ; Start 03/16/17 at 04:30 Glucose (Glutose) 15 gm Q15M PRN PO DECREASED GLUCOSE; Start 03/16/17 at 04:30 Glucose (Glutose) 22.5 gm Q15M PRN PO DECREASED GLUCOSE; Start 03/16/17 at 04: 30 Dextrose (D50w Syringe) 25 ml Q15M PRN IV DECREASED GLUCOSE; Start 03/16/17 at 04:30 Dextrose (D50w Syringe) 50 ml Q15M PRN IV DECREASED GLUCOSE; Start 03/16/17 at 04:30 Glucagon (Glucagen) 1 mg Q15M PRN IM DECREASED GLUCOSE; Start 03/16/17 at 04:30 Glucose (Glutose) 15 gm Q15M PRN BUCCAL DECREASED GLUCOSE; Start 03/16/17 at 04 :30 Mycophenolate Mofetil (Cellcept) 500 mg TID PO Last administered on 03/17/17 09:02; Admin Dose 500 MG; Start 03/16/17 at 09:00 Ondansetron HCl (Zofran Inj) 4 mg Q6 PRN IV NAUSEA AND/OR VOMITING Last administered on 03/17/17 19:04; Admin Dose 4 MG; Start 03/16/17 at 04:30 Lactulose (Enulose) 20 gm DAILY PRN PO CONSTIPATION; Start 03/16/17 at 04:30 Apixaban (Eliquis) 5 mg BID PO Last administered on 03/17/17 09:02; Admin Dose 5 MG; Start 03/16/17 at 09:00 Pantoprazole (Protonix Tab) 40 mg DAILY@06 PO Last administered on 03/17/17 05 :57; Admin Dose 40 MG; Start 03/16/17 at 06:00 Acetaminophen (Tylenol Tab) 650 mg Q6H PRN PO PAIN AND OR ELEVATED TEMP; Start 03/16/17 at 04:30 Diagnostic Test (Pha) (Accu-Chek) 1 ea 02 XX ; Start 03/17/17 at 02:00 Spironolactone (Aldactone) 50 mg DAILY PO Last administered on 03/17/17 09:02 ; Admin Dose 50 MG; Start 03/17/17 at 09:00 Potassium Chloride (Klor-Con 20) 20 meq BID PO Last administered on 03/17/17 09:03; Admin Dose 20 MEQ; Start 03/16/17 at 21:00 Hydromorphone HCl (Dilaudid) 0.5 mg Q4H PRN IV PAIN Last administered on 19:04; Admin Dose 0.5 MG; Start 03/17/17 at 15:30 Metoclopramide HCl (Reglan) 5 mg Q6 IV ; Start 03/18/17 at 00:00 LNYETTE SAINZ MD Mar 17, 2017 22:37
[2017-03-17] MEDS: METOCLOPRAMIDE 10 MG INJ IV SCH (23:48)
[2017-03-18] MEDS: ACCU-CHEK XX SCH (02:00)
[2017-03-18] MEDS: PANTOPRAZOLE (EC) 40 MG TAB PO SCH (05:42)
[2017-03-18] MEDS: HYDROCODONE/APAP (10/325) TAB GTB PRN (05:42)
[2017-03-18] MEDS: METOCLOPRAMIDE 10 MG INJ IV SCH ×4 (05:43→23:07)
[2017-03-18] MEDS: FUROSEMIDE 40 MG INJ IV SCH ×2 (05:48→17:34)
[2017-03-18 06:00] LABS: ADD SCAN DIFF NO
[2017-03-18 06:15] LABS: BASOPHIL # 0.1 10^3/ul (0.0-0.1); BASOPHILS % 0.9 % (0.0-2.0); EOSINOPHILS # 0.1 10^3/ul (0.0-0.5); EOSINOPHILS % 1.7 % (0.0-7.0); HEMATOCRIT 33.3 % (37.0-47.0); HEMOGLOBIN 11.4 g/dl (12.0-16.0); LYMPHOCYTES % 30.5 % (15.0-51.0); MEAN CORPUSCULAR HEMOGLOBIN 33.4 pg (29.0-33.0); MEAN CORPUSCULAR HGB CONC 34.2 g/dl (32.0-37.0); MEAN CORPUSCULAR VOLUME 97.7 fl (82.0-101.0); MEAN PLATELET VOLUME 9.2 fl (7.4-10.4); MONOCYTE # 0.6 10^3/ul (0.3-0.9); MONOCYTES % 9.1 % (0.0-11.0); NEUTROPHIL # 3.7 10^3/ul (1.6-7.5); NEUTROPHILS % 57.5 % (39.0-77.0); PLATELET COUNT 164 10^3/UL (140-415); RED BLOOD COUNT 3.41 10^6/ul (4.20-5.40); RED CELL DISTRIBUTION WIDTH 15.1 % (11.5-14.5); WHITE BLOOD COUNT 6.5 10^3/ul (4.8-10.8)
[2017-03-18 06:49] LABS: CALCIUM 8.6 mg/dl (8.4-10.2); CREATININE 1.54 mg/dl (0.44-1.00)
[2017-03-18 07:59] VITALS: BP 90/61; RESP 18
[2017-03-18] MEDS: INSULIN ASPART [NOVOLOG] 3 ML PEN SC SCH ×4 (08:14→21:00)
[2017-03-18] MEDS: MYCOPHENOLATE 250 MG CAP PO SCH ×3 (09:00→21:01)
[2017-03-18] MEDS: POTASSIUM CHLORIDE (SR) 20 MEQ TAB PO SCH ×2 (09:00→21:01)
[2017-03-18] MEDS: APIXABAN 5 MG TABLET PO SCH ×2 (09:00→21:01)
[2017-03-18] MEDS: SPIRONOLACTONE 50 MG TAB PO SCH (09:00)
--- NOTE | 2017-03-18 11:28 | CONS ---
Date/Time of Note Date/Time of Note DATE: 03/18/17 TIME: 11:26 Assessment/Plan Assessment/Plan Additional Assessment/Plan IMPRESSION 1. Chronic abdominal pain. 2. Chronic nausea. May be related to her chronic vertigo. Diabetes also might be playing a role 3. Autoimmune hepatitis, with cirrhosis of the liver and portal hypertension. 4. Deep venous thrombosis for which she is on Eliquis. 5. Diabetes mellitus. PLAN: At this point, is to continue present care. Continue PPI. The patient will be placed on Reglan for her nausea, which may be also related to diabetes mellitus. Gastroparesis, I am going to review her CAT scan. If there is no varicose vein, then patient needs to multiple biopsies from thickened fold. Patient is going for paracentesis today We will send for alpha-fetoprotein Consultation Date/Type/Reason Admit Date/Time Mar 16, 2017 at 02:06 Initial Consult Date 24 HR Interval Summary Free Text/Dictation Discussed with her daughter patient has nausea, headache, chronic dizziness. Exam/Review of Systems Vital Signs Vitals Vital Signs Date Time Temp Pulse Resp B/P Pulse Ox O2 Delivery O2 Flow Rate FiO2 03/18/17 07:59 97.9 82 18 90/61 96 Intake and Output 03/17/17 03/17/17 03/18/17 15:00 23:00 07:00 Intake Total 930 ml Output Total 300 ml Balance 630 ml Results Result Diagram: 03/18/17 0550 03/18/17 0550 Results 24 hrs Laboratory Tests Test 03/17/17 12:00 03/17/17 12:43 03/17/17 17:28 03/17/17 22:00 Prothrombin Time 27.8 #H Prothrombin Time Ratio 2.2 INR International Normalized Ratio 2.56 Activated Partial Thromboplast Time 34.6 Bedside Glucose 177 120 138 Test 03/17/17 22:22 03/18/17 05:50 03/18/17 08:07 Bedside Glucose 119 123 White Blood Count 6.5 Red Blood Count 3.41 L Hemoglobin 11.4 L Hematocrit 33.3 L Mean Corpuscular Volume 97.7 Mean Corpuscular Hemoglobin 33.4 H Mean Corpuscular Hemoglobin Concent 34.2 Red Cell Distribution Width 15.1 H Platelet Count 164 # Mean Platelet Volume 9.2 Neutrophils % 57.5 Lymphocytes % 30.5 Monocytes % 9.1 Eosinophils % 1.7 Basophils % 0.9 Nucleated Red Blood Cells % 0.0 Neutrophils # 3.7 Lymphocytes # 2.0 Monocytes # 0.6 Eosinophils # 0.1 Basophils # 0.1 Nucleated Red Blood Cells # 0.0 Sodium Level 135 Potassium Level 4.0 Chloride Level 105 Carbon Dioxide Level 24 Anion Gap 10 Blood Urea Nitrogen 17 Creatinine 1.54 H Glucose Level 123 Calcium Level 8.6 Medications Medications Current Medications Dicyclomine HCl (Bentyl) 20 mg QID PRN PO ABDOMINAL DISCOMFORT; Start 03/16/17 at 04:00 Acetaminophen/ Hydrocodone Bitart ([place] ()) 1 tab Q6 PRN GTB PAIN Last administered on 03/18/17 05:42; Admin Dose 1 TAB; Start 03/16/17 at 04:00 Insulin Glargine (Lantus) 20 unit DAILY@20 SC Last administered on 03/17/17 22 :37; Admin Dose 20 UNIT; Start 03/16/17 at 20:00 Meclizine HCl (Antivert) 25 mg Q6 PRN PO DIZZINESS; Start 03/16/17 at 04:00 Miscellaneous Information 1 ea NOTE XX ; Start 03/16/17 at 04:30 Glucose (Glutose) 15 gm Q15M PRN PO DECREASED GLUCOSE; Start 03/16/17 at 04:30 Glucose (Glutose) 22.5 gm Q15M PRN PO DECREASED GLUCOSE; Start 03/16/17 at 04: 30 Dextrose (D50w Syringe) 25 ml Q15M PRN IV DECREASED GLUCOSE; Start 03/16/17 at 04:30 Dextrose (D50w Syringe) 50 ml Q15M PRN IV DECREASED GLUCOSE; Start 03/16/17 at 04:30 Glucagon (Glucagen) 1 mg Q15M PRN IM DECREASED GLUCOSE; Start 03/16/17 at 04:30 Glucose (Glutose) 15 gm Q15M PRN BUCCAL DECREASED GLUCOSE; Start 03/16/17 at 04 :30 Mycophenolate Mofetil (Cellcept) 500 mg TID PO Last administered on 03/17/17 22:19; Admin Dose 500 MG; Start 03/16/17 at 09:00 Ondansetron HCl (Zofran Inj) 4 mg Q6 PRN IV NAUSEA AND/OR VOMITING Last administered on 03/17/17 19:04; Admin Dose 4 MG; Start 03/16/17 at 04:30 Lactulose (Enulose) 20 gm DAILY PRN PO CONSTIPATION; Start 03/16/17 at 04:30 Apixaban (Eliquis) 5 mg BID PO Last administered on 03/17/17 22:20; Admin Dose 5 MG; Start 03/16/17 at 09:00 Pantoprazole (Protonix Tab) 40 mg DAILY@06 PO Last administered on 03/18/17 05 :42; Admin Dose 40 MG; Start 03/16/17 at 06:00 Acetaminophen (Tylenol Tab) 650 mg Q6H PRN PO PAIN AND OR ELEVATED TEMP; Start 03/16/17 at 04:30 Diagnostic Test (Pha) (Accu-Chek) 1 XX ; Start 03/17/17 at 02:00 Spironolactone (Aldactone) 50 mg DAILY PO Last administered on 03/17/17 09:02 ; Admin Dose 50 MG; Start 03/17/17 at 09:00 Potassium Chloride (Klor-Con 20) 20 meq BID PO Last administered on 03/17/17 22:20; Admin Dose 20 MEQ; Start 03/16/17 at 21:00 Hydromorphone HCl (Dilaudid) 0.5 mg Q4H PRN IV PAIN Last administered on 23:48; Admin Dose 0.5 MG; Start 03/17/17 at 15:30 Metoclopramide HCl (Reglan) 5 mg Q6 IV Last administered on 03/18/17 05:43; Admin Dose 5 MG; Start 03/18/17 at 00:00 LAURA RAMIREZ MD Mar 18, 2017 11:27
[2017-03-18 19:53] VITALS: BP 92/57; RESP 20
[2017-03-18] MEDS: INSULIN GLARGINE [LANtus] 3 ML PEN SC SCH (21:11)
--- NOTE | 2017-03-18 23:36 | PN ---
Date/Time of Note Date/Time of Note DATE: 03/18/17 TIME: 23:35 Assessment/Plan VTE Prophylaxis VTE Prophylaxis Intervention: other Lines/Catheters [facility] Saline Lock Assessment/Plan Chief Complaint/Hosp Course IMPRESSION: The patient has ascites, anasarca, deep venous thrombosis of the lower extremities. Underlying possible chronic kidney disease, abnormal liver function tests, anemia, diabetes mellitus and autoimmune hepatitis. The patient has underlying chronic kidney disease. plan paracentesis ordered Problems: Subjective 24 Hr Interval Summary Respiratory: No shortness of breath Gastrointestinal: No diarrhea, No nausea Exam/Review of Systems Vital Signs Vitals Vital Signs Date Time Temp Pulse Resp B/P Pulse Ox O2 Delivery O2 Flow Rate FiO2 03/18/17 19:53 98.1 81 20 92/57 96 Intake and Output 03/17/17 03/17/17 03/18/17 15:00 23:00 07:00 Intake Total 930 ml Output Total 300 ml Balance 630 ml Exam Respiratory: clear to auscultation Cardiovascular: regular rate and rhythm Gastrointestinal: soft Musculoskeletal: nl extremities to inspection Results Result Diagram: 03/18/17 0550 03/18/17 0550 Results 24 hrs Laboratory Tests Test 03/18/17 05:50 03/18/17 08:07 03/18/17 12:07 03/18/17 17:19 White Blood Count 6.5 Red Blood Count 3.41 L Hemoglobin 11.4 L Hematocrit 33.3 L Mean Corpuscular Volume 97.7 Mean Corpuscular Hemoglobin 33.4 H Mean Corpuscular Hemoglobin Concent 34.2 Red Cell Distribution Width 15.1 H Platelet Count 164 # Mean Platelet Volume 9.2 Neutrophils % 57.5 Lymphocytes % 30.5 Monocytes % 9.1 Eosinophils % 1.7 Basophils % 0.9 Nucleated Red Blood Cells % 0.0 Neutrophils # 3.7 Lymphocytes # 2.0 Monocytes # 0.6 Eosinophils # 0.1 Basophils # 0.1 Nucleated Red Blood Cells # 0.0 Sodium Level 135 Potassium Level 4.0 Chloride Level 105 Carbon Dioxide Level 24 Anion Gap 10 Blood Urea Nitrogen 17 Creatinine 1.54 H Glucose Level 123 Calcium Level 8.6 Bedside Glucose 123 107 87 Test 03/18/17 20:32 Bedside Glucose 126 Medications Medications Current Medications Dicyclomine HCl (Bentyl) 20 mg QID PRN PO ABDOMINAL DISCOMFORT; Start 03/16/17 at 04:00 Acetaminophen/ Hydrocodone Bitart ([place] (10)) 1 tab Q6 PRN GTB PAIN Last administered on 03/18/17 05:42; Admin Dose 1 TAB; Start 03/16/17 at 04:00 Insulin Glargine (Lantus) 20 unit DAILY@20 SC Last administered on 03/18/17 21 :11; Admin Dose 20 UNIT; Start 03/16/17 at 20:00 Meclizine HCl (Antivert) 25 mg Q6 PRN PO DIZZINESS; Start 03/16/17 at 04:00 Miscellaneous Information 1 ea NOTE XX ; Start 03/16/17 at 04:30 Glucose (Glutose) 15 gm Q15M PRN PO DECREASED GLUCOSE; Start 03/16/17 at 04:30 Glucose (Glutose) 22.5 gm Q15M PRN PO DECREASED GLUCOSE; Start 03/16/17 at 04: 30 Dextrose (D50w Syringe) 25 ml Q15M PRN IV DECREASED GLUCOSE; Start 03/16/17 at 04:30 Dextrose (D50w Syringe) 50 ml Q15M PRN IV DECREASED GLUCOSE; Start 03/16/17 at 04:30 Glucagon (Glucagen) 1 mg Q15M PRN IM DECREASED GLUCOSE; Start 03/16/17 at 04:30 Glucose (Glutose) 15 gm Q15M PRN BUCCAL DECREASED GLUCOSE; Start 03/16/17 at 04 :30 Mycophenolate Mofetil (Cellcept) 500 mg TID PO Last administered on 03/18/17 21:01; Admin Dose 500 MG; Start 03/16/17 at 09:00 Ondansetron HCl (Zofran Inj) 4 mg Q6 PRN IV NAUSEA AND/OR VOMITING Last administered on 03/17/17 19:04; Admin Dose 4 MG; Start 03/16/17 at 04:30 Lactulose (Enulose) 20 gm DAILY PRN PO CONSTIPATION; Start 03/16/17 at 04:30 Apixaban (Eliquis) 5 mg BID PO Last administered on 03/18/17 21:01; Admin Dose 5 MG; Start 03/16/17 at 09:00 Pantoprazole (Protonix Tab) 40 mg DAILY@06 PO Last administered on 03/18/17 05 :42; Admin Dose 40 MG; Start 03/16/17 at 06:00 Acetaminophen (Tylenol Tab) 650 mg Q6H PRN PO PAIN AND OR ELEVATED TEMP; Start 03/16/17 at 04:30 Diagnostic Test (Pha) (Accu-Chek) 1 ea 02 XX ; Start 03/17/17 at 02:00 Spironolactone (Aldactone) 50 mg DAILY PO Last administered on 03/17/17 09:02 ; Admin Dose 50 MG; Start 03/17/17 at 09:00 Potassium Chloride (Klor-Con 20) 20 meq BID PO Last administered on 03/18/17 21:01; Admin Dose 20 MEQ; Start 03/16/17 at 21:00 Hydromorphone HCl (Dilaudid) 0.5 mg Q4H PRN IV PAIN Last administered on 23:48; Admin Dose 0.5 MG; Start 03/17/17 at 15:30 Metoclopramide HCl (Reglan) 5 mg Q6 IV Last administered on 03/18/17 23:07; Admin Dose 5 MG; Start 03/18/17 at 00:00 LYNETTE SAINZ MD Mar 18, 2017 23:36
[2017-03-19] MEDS: ACCU-CHEK XX SCH (02:00)
[2017-03-19] MEDS: METOCLOPRAMIDE 10 MG INJ IV SCH ×4 (05:49→23:31)
[2017-03-19] MEDS: PANTOPRAZOLE (EC) 40 MG TAB PO SCH (05:49)
[2017-03-19 05:59] VITALS: BP 84/49; PULSE 91
[2017-03-19] MEDS: FUROSEMIDE 40 MG INJ IV SCH ×2 (05:59→17:52)
[2017-03-19 06:30] VITALS: BP 91/54; PULSE 89
[2017-03-19 07:46] VITALS: BP 90/50; RESP 18
[2017-03-19] MEDS: INSULIN ASPART [NOVOLOG] 3 ML PEN SC SCH ×4 (08:15→20:32)
[2017-03-19] MEDS: APIXABAN 5 MG TABLET PO SCH ×2 (08:40→20:26)
[2017-03-19] MEDS: SPIRONOLACTONE 50 MG TAB PO SCH (08:53)
[2017-03-19] MEDS: MYCOPHENOLATE 250 MG CAP PO SCH ×3 (08:53→20:25)
[2017-03-19] MEDS: POTASSIUM CHLORIDE (SR) 20 MEQ TAB PO SCH ×2 (08:53→20:26)
[2017-03-19 10:06] LABS: INR 2.04; PROTIME 23.2 Sec (12.2-14.2); PT RATIO 1.8
--- NOTE | 2017-03-19 11:12 | PN ---
Date/Time of Note Date/Time of Note DATE: 03/19/17 TIME: 11:09 Assessment/Plan VTE Prophylaxis VTE Prophylaxis Intervention: ambulation Lines/Catheters IV Catheter Type (from Nrs): Saline Lock Assessment/Plan Chief Complaint/Hosp Course 1ascites, scheduled for thoracentesis 2. anasarca, 3. deep venous thrombosis of the lower extremities. 4. chronic kidney disease, 5. abnormal liver function tests, 7. anemia, 8. diabetes mellitus 9.autoimmune hepatitis. Problems: Assessment/Plan 1. Thoracentesis 2. Discharge planning Subjective 24 Hr Interval Summary Constitutional: no complaints Exam/Review of Systems Vital Signs Vitals Vital Signs Date Time Temp Pulse Resp B/P Pulse Ox O2 Delivery O2 Flow Rate FiO2 03/19/17 07:46 98.0 92 18 90/50 93 Intake and Output 03/18/17 03/18/17 03/19/17 15:00 23:00 07:00 Intake Total 520 ml 360 ml 150 ml Output Total 800 ml Balance -280 ml 360 ml 150 ml Exam Constitutional: alert, oriented Respiratory: clear to auscultation Cardiovascular: regular rate and rhythm Gastrointestinal: distended, hepatomegaly, soft Results Result Diagram: 03/18/17 0550 03/18/17 0550 Results 24 hrs Laboratory Tests Test 03/18/17 12:07 03/18/17 17:19 03/18/17 20:32 03/19/17 05:15 Bedside Glucose 107 87 126 Alpha Fetoprotein 2.58 Test 03/19/17 08:00 03/19/17 08:35 03/19/17 09:10 Bedside Glucose 51 L 91 Prothrombin Time 23.2 H Prothrombin Time Ratio 1.8 INR International Normalized Ratio 2.04 Medications Medications Current Medications Dicyclomine HCl (Bentyl) 20 mg QID PRN PO ABDOMINAL DISCOMFORT; Start 03/16/17 at 04:00 Acetaminophen/ Hydrocodone Bitart ([place] (10/325)) 1 tab Q6 PRN GTB PAIN Last administered on 03/18/17 05:42; Admin Dose 1 TAB; Start 03/16/17 at 04:00 Insulin Glargine (Lantus) 20 unit DAILY@20 SC Last administered on 03/18/17 21 :11; Admin Dose 20 UNIT; Start 03/16/17 at 20:00 Meclizine HCl (Antivert) 25 mg Q6 PRN PO DIZZINESS; Start 03/16/17 at 04:00 Miscellaneous Information 1 ea NOTE XX ; Start 03/16/17 at 04:30 Glucose (Glutose) 15 gm Q15M PRN PO DECREASED GLUCOSE; Start 03/16/17 at 04:30 Glucose (Glutose) 22.5 gm Q15M PRN PO DECREASED GLUCOSE; Start 03/16/17 at 04: 30 Dextrose (D50w Syringe) 25 ml Q15M PRN IV DECREASED GLUCOSE; Start 03/16/17 at 04:30 Dextrose (D50w Syringe) 50 ml Q15M PRN IV DECREASED GLUCOSE; Start 03/16/17 at 04:30 Glucagon (Glucagen) 1 mg Q15M PRN IM DECREASED GLUCOSE; Start 03/16/17 at 04:30 Glucose (Glutose) 15 gm Q15M PRN BUCCAL DECREASED GLUCOSE; Start 03/16/17 at 04 :30 Mycophenolate Mofetil (Cellcept) 500 mg TID PO Last administered on 03/19/17 08:53; Admin Dose 500 MG; Start 03/16/17 at 09:00 Ondansetron HCl (Zofran Inj) 4 mg Q6 PRN IV NAUSEA AND/OR VOMITING Last administered on 03/17/17 19:04; Admin Dose 4 MG; Start 03/16/17 at 04:30 Lactulose (Enulose) 20 gm DAILY PRN PO CONSTIPATION; Start 03/16/17 at 04:30 Apixaban (Eliquis) 5 mg BID PO Last administered on 03/18/17 21:01; Admin Dose 5 MG; Start 03/16/17 at 09:00 Pantoprazole (Protonix Tab) 40 mg DAILY@06 PO Last administered on 03/19/17 05 :49; Admin Dose 40 MG; Start 03/16/17 at 06:00 Acetaminophen (Tylenol Tab) 650 mg Q6H PRN PO PAIN AND OR ELEVATED TEMP; Start 03/16/17 at 04:30 Diagnostic Test (Pha) (Accu-Chek) 1 ea 02 XX ; Start 03/17/17 at 02:00 Spironolactone (Aldactone) 50 mg DAILY PO Last administered on 03/19/17 08:53 ; Admin Dose 50 MG; Start 03/17/17 at 09:00 Potassium Chloride (Klor-Con 20) 20 meq BID PO Last administered on 03/19/17 08:53; Admin Dose 20 MEQ; Start 03/16/17 at 21:00 Hydromorphone HCl (Dilaudid) 0.5 mg Q4H PRN IV PAIN Last administered on 23:48; Admin Dose 0.5 MG; Start 03/17/17 at 15:30 Metoclopramide HCl (Reglan) 5 mg Q6 IV Last administered on 03/19/17 05:49; Admin Dose 5 MG; Start 03/18/17 at 00:00 FABI OSORIO Mar 19, 2017 11:12
[2017-03-19] MEDS: HYDROmorphONE 1 MG/ML SYG IV PRN (11:17)
[2017-03-19 15:21] LABS: INR 1.78; PROTIME 20.9 Sec (12.2-14.2); PT RATIO 1.6
[2017-03-19] MEDS ORDERED: LIDOCAINE 1% (MPF) 5 ML VIAL ONE (17:09)
--- NOTE | 2017-03-19 18:02 | RADRPT ---
PROCEDURE: Ultrasound guided paracentesis. CLINICAL INDICATION: Ascites and shortness of breath. COMPARISON: No prior studies are available for comparison. TECHNIQUE: The risks, benefits, and alternatives were explained to the patient and/or the patient's family, inc luding but not limited to bleeding, infection, pain, visceral or vascular damage, shock, and . The patient and/or the patient's family understood the risks and the alternatives and wished to pro ceed with the procedure. Informed written consent was obtained. A procedural time out was performed . The patient's name, date of , and procedure to be performed were verified. Utilizing ultrasound guidance, optimal location for entry to the peritoneal cavity was ascertained. The overlying skin was prepped and draped in the usual sterile fashion. Approximately 10 ml of 1% Xylocaine was injected locally for pain control. Using ultrasound guidance, an 8 [place] catheter wa s introduced into the peritoneal cavity in the right lower quadrant without difficulty. FINDINGS: Initial images demonstrate ascites. Approximately 4.9 liters of serous fluid was aspirated and disc arded. The patient tolerated the procedure well without complication. IMPRESSION: 1. Successful ultrasound-guided paracentesis. RPTAT: QQ .Robbie Geller MD, MD Date Time Electronically viewed and signed by .Robbie Geller MD, on 03/19/2017 18:01 .R/
[2017-03-19 19:47] VITALS: BP 87/53; RESP 20
[2017-03-19] MEDS: INSULIN GLARGINE [LANtus] 3 ML PEN SC SCH (20:00)
[2017-03-19 20:33] VITALS: BP 90/56; PULSE 86
--- NOTE | 2017-03-19 21:35 | CONS ---
Date/Time of Note Date/Time of Note DATE: 03/19/17 TIME: 21:34 Assessment/Plan Assessment/Plan Additional Assessment/Plan IMPRESSION 1. Chronic abdominal pain. 2. Chronic nausea. May be related to her chronic vertigo. Diabetes also might be playing a role 3. Autoimmune hepatitis, with cirrhosis of the liver and portal hypertension. 4. Deep venous thrombosis for which she is on Eliquis. 5. Diabetes mellitus. Plan continue Reglan diuretics Consultation Date/Type/Reason Admit Date/Time Mar 16, 2017 at 02:06 24 HR Interval Summary Constitutional: improved Exam/Review of Systems Vital Signs Vitals Vital Signs Date Time Temp Pulse Resp B/P Pulse Ox O2 Delivery O2 Flow Rate FiO2 03/19/17 20:33 86 90/56 03/19/17 19:47 98.8 20 98 Intake and Output 03/18/17 03/18/17 03/19/17 14:59 22:59 06:59 Intake Total 520 ml 360 ml 150 ml Output Total 800 ml Balance -280 ml 360 ml 150 ml Exam Constitutional: alert, oriented, well developed Psych: nl mood/affect, no complaints Head: atraumatic, normocephalic Eyes: EOMI, PERRL, nl conjunctiva, nl lids, nl sclera ENMT: nl external ears & nose, nl lips & teeth, nl nasal mucosa & septum Neck: non-tender, supple Respiratory: clear to auscultation, normal air movement Cardiovascular: nl pulses, regular rate and rhythm Gastrointestinal: nl liver, spleen, non-tender, soft Musculoskeletal: nl extremities to inspection, nl gait and stance Extremities: normal pulses 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, nl mental status, nl speech, nl strength Skin: nl turgor, No rash or lesions Lymph: nl lymph nodes Results Result Diagram: 03/18/17 0550 03/18/17 0550 Results 24 hrs Laboratory Tests Test 03/19/17 05:15 03/19/17 08:00 03/19/17 08:35 03/19/17 09:10 Alpha Fetoprotein 2.58 Bedside Glucose 51 L 91 Prothrombin Time 23.2 H Prothrombin Time Ratio 1.8 INR International Normalized Ratio 2.04 Test 03/19/17 12:27 03/19/17 13:55 03/19/17 17:45 03/19/17 18:56 Bedside Glucose 92 60 L 84 Prothrombin Time 20.9 H Prothrombin Time Ratio 1.6 INR International Normalized Ratio 1.78 Test 03/19/17 20:31 Bedside Glucose 133 Medications Medications Current Medications Dicyclomine HCl (Bentyl) 20 mg QID PRN PO ABDOMINAL DISCOMFORT; Start 03/16/17 at 04:00 Acetaminophen/ Hydrocodone Bitart ([place] (10/325)) 1 tab Q6 PRN GTB PAIN Last administered on 03/18/17 05:42; Admin Dose 1 TAB; Start 03/16/17 at 04:00 Meclizine HCl (Antivert) 25 mg Q6 PRN PO DIZZINESS; Start 03/16/17 at 04:00 Miscellaneous Information 1 ea NOTE XX ; Start 03/16/17 at 04:30 Glucose (Glutose) 15 gm Q15M PRN PO DECREASED GLUCOSE; Start 03/16/17 at 04:30 Glucose (Glutose) 22.5 gm Q15M PRN PO DECREASED GLUCOSE; Start 03/16/17 at 04: 30 Dextrose (D50w Syringe) 25 ml Q15M PRN IV DECREASED GLUCOSE; Start 03/16/17 at 04:30 Dextrose (D50w Syringe) 50 ml Q15M PRN IV DECREASED GLUCOSE; Start 03/16/17 at 04:30 Glucagon (Glucagen) 1 mg Q15M PRN IM DECREASED GLUCOSE; Start 03/16/17 at 04:30 Glucose (Glutose) 15 gm Q15M PRN BUCCAL DECREASED GLUCOSE; Start 03/16/17 at 04 :30 Mycophenolate Mofetil (Cellcept) 500 mg TID PO Last administered on 03/19/17 20:25; Admin Dose 500 MG; Start 03/16/17 at 09:00 Ondansetron HCl (Zofran Inj) 4 mg Q6 PRN IV NAUSEA AND/OR VOMITING Last administered on 03/17/17 19:04; Admin Dose 4 MG; Start 03/16/17 at 04:30 Lactulose (Enulose) 20 gm DAILY PRN PO CONSTIPATION; Start 03/16/17 at 04:30 Apixaban (Eliquis) 5 mg BID PO Last administered on 03/19/17 20:26; Admin Dose 5 MG; Start 03/16/17 at 09:00 Pantoprazole (Protonix Tab) 40 mg DAILY@06 PO Last administered on 03/19/17 05 :49; Admin Dose 40 MG; Start 03/16/17 at 06:00 Acetaminophen (Tylenol Tab) 650 mg Q6H PRN PO PAIN AND OR ELEVATED TEMP; Start 03/16/17 at 04:30 Diagnostic Test (Pha) (Accu-Chek) 1 ea 02 XX ; Start 03/17/17 at 02:00 Spironolactone (Aldactone) 50 mg DAILY PO Last administered on 03/19/17 08:53 ; Admin Dose 50 MG; Start 03/17/17 at 09:00 Potassium Chloride (Klor-Con 20) 20 meq BID PO Last administered on 03/19/17 20:26; Admin Dose 20 MEQ; Start 03/16/17 at 21:00 Hydromorphone HCl (Dilaudid) 0.5 mg Q4H PRN IV PAIN Last administered on 11:17; Admin Dose 0.5 MG; Start 03/17/17 at 15:30 Metoclopramide HCl (Reglan) 5 mg Q6 IV Last administered on 03/19/17 17:47; Admin Dose 5 MG; Start 03/18/17 at 00:00 Insulin Glargine (Lantus) 15 unit DAILY@20 SC ; Start 03/19/17 at 20:00 LAURA RAMIREZ MD Mar 19, 2017 21:35
[2017-03-20] MEDS: ACCU-CHEK XX SCH (02:00)
[2017-03-20] MEDS: METOCLOPRAMIDE 10 MG INJ IV SCH ×4 (05:18→23:41)
[2017-03-20] MEDS: PANTOPRAZOLE (EC) 40 MG TAB PO SCH (05:18)
[2017-03-20] MEDS: FUROSEMIDE 40 MG INJ IV SCH ×2 (06:00→17:50)
[2017-03-20 06:07] LABS: ADD SCAN DIFF NO
[2017-03-20 06:12] LABS: BASOPHILS % 0.8 % (0.0-2.0); EOSINOPHILS # 0.1 10^3/ul (0.0-0.5); EOSINOPHILS % 2.3 % (0.0-7.0); HEMATOCRIT 31.5 % (37.0-47.0); HEMOGLOBIN 10.7 g/dl (12.0-16.0); LYMPHOCYTES # 1.4 10^3/ul (0.8-2.9); LYMPHOCYTES % 35.7 % (15.0-51.0); MEAN CORPUSCULAR HEMOGLOBIN 33.3 pg (29.0-33.0); MEAN CORPUSCULAR VOLUME 98.1 fl (82.0-101.0); MEAN PLATELET VOLUME 9.4 fl (7.4-10.4); MONOCYTE # 0.4 10^3/ul (0.3-0.9); MONOCYTES % 9.5 % (0.0-11.0); NEUTROPHIL # 2.1 10^3/ul (1.6-7.5); NEUTROPHILS % 51.7 % (39.0-77.0); PLATELET COUNT 134 10^3/UL (140-415); RED BLOOD COUNT 3.21 10^6/ul (4.20-5.40); RED CELL DISTRIBUTION WIDTH 15.3 % (11.5-14.5)
[2017-03-20 06:15] VITALS: BP 84/52; PULSE 76
[2017-03-20 06:54] LABS: CALCIUM 8.2 mg/dl (8.4-10.2); CREATININE 1.22 mg/dl (0.44-1.00); POTASSIUM 4.1 mmol/L (3.5-5.1)
[2017-03-20] MEDS: INSULIN ASPART [NOVOLOG] 3 ML PEN SC SCH ×4 (08:05→21:00)
[2017-03-20 08:06] VITALS: BP 89/51; RESP 18
[2017-03-20] MEDS: SPIRONOLACTONE 50 MG TAB PO SCH (09:26)
[2017-03-20] MEDS: APIXABAN 5 MG TABLET PO SCH ×2 (09:26→21:44)
[2017-03-20] MEDS: POTASSIUM CHLORIDE (SR) 20 MEQ TAB PO SCH ×2 (09:26→21:44)
[2017-03-20] MEDS: MYCOPHENOLATE 250 MG CAP PO SCH ×3 (09:26→21:44)
[2017-03-20] MEDS: HYDROmorphONE 1 MG/ML SYG IV PRN (09:29)
--- NOTE | 2017-03-20 14:02 | PN ---
Date/Time of Note Date/Time of Note DATE: 03/20/17 TIME: 14:00 Assessment/Plan VTE Prophylaxis VTE Prophylaxis Intervention: ambulation Lines/Catheters IV [facility] Saline Lock Assessment/Plan Chief Complaint/Hosp Course 1ascites, scheduled for thoracentesis 2. anasarca, 3. deep venous thrombosis of the lower extremities. 4. chronic kidney disease, 5. abnormal liver function tests, 7. anemia, 8. diabetes mellitus 9.autoimmune hepatitis. Problems: Assessment/Plan 1. Hold discharge 2. Pain control Subjective 24 Hr Interval Summary Constitutional: improved, no complaints Gastrointestinal: decreased appetite, pain Exam/Review of Systems Vital Signs Vitals Vital Signs Date Time Temp Pulse Resp B/P Pulse Ox O2 Delivery O2 Flow Rate FiO2 03/20/17 08:06 98.7 18 89/51 95 03/20/17 06:15 76 Intake and Output 03/19/17 03/19/17 03/20/17 15:00 23:00 07:00 Intake Total 240 ml 360 ml Output Total 150 ml Balance 90 ml 360 ml Exam Constitutional: alert, oriented Neck: supple Respiratory: clear to auscultation Cardiovascular: regular rate and rhythm Gastrointestinal: other (painful on palpation), soft Genitourinary - Female: other Results Result Diagram: 03/20/17 0540 03/20/17 0540 Results 24 hrs Laboratory Tests Test 03/19/17 17:45 03/19/17 18:56 03/19/17 20:31 03/20/17 05:40 Bedside Glucose 60 L 84 133 White Blood Count 4.0 #L Red Blood Count 3.21 L Hemoglobin 10.7 L Hematocrit 31.5 L Mean Corpuscular Volume 98.1 Mean Corpuscular Hemoglobin 33.3 H Mean Corpuscular Hemoglobin Concent 34.0 Red Cell Distribution Width 15.3 H Platelet Count 134 L Mean Platelet Volume 9.4 Neutrophils % 51.7 Lymphocytes % 35.7 Monocytes % 9.5 Eosinophils % 2.3 Basophils % 0.8 Nucleated Red Blood Cells % 0.0 Neutrophils # 2.1 Lymphocytes # 1.4 Monocytes # 0.4 Eosinophils # 0.1 Basophils # 0.0 Nucleated Red Blood Cells # 0.0 Sodium Level 135 Potassium Level 4.1 Chloride Level 105 Carbon Dioxide Level 27 Anion Gap 7 L Blood Urea Nitrogen 14 Creatinine 1.22 H Glucose Level 87 Calcium Level 8.2 L Test 03/20/17 07:24 03/20/17 07:48 03/20/17 12:34 Lab Scanned Report BLOOD TRANSFUSION Bedside Glucose 81 139 Medications Medications Current Medications Dicyclomine HCl (Bentyl) 20 mg QID PRN PO ABDOMINAL DISCOMFORT; Start 03/16/17 at 04:00 Acetaminophen/ Hydrocodone Bitart ([place] (10/325)) 1 tab Q6 PRN GTB PAIN Last administered on 03/18/17 05:42; Admin Dose 1 TAB; Start 03/16/17 at 04:00 Meclizine HCl (Antivert) 25 mg Q6 PRN PO DIZZINESS; Start 03/16/17 at 04:00 Miscellaneous Information 1 ea NOTE XX ; Start 03/16/17 at 04:30 Glucose (Glutose) 15 gm Q15M PRN PO DECREASED GLUCOSE; Start 03/16/17 at 04:30 Glucose (Glutose) 22.5 gm Q15M PRN PO DECREASED GLUCOSE; Start 03/16/17 at 04: 30 Dextrose (D50w Syringe) 25 ml Q15M PRN IV DECREASED GLUCOSE; Start 03/16/17 at 04:30 Dextrose (D50w Syringe) 50 ml Q15M PRN IV DECREASED GLUCOSE; Start 03/16/17 at 04:30 Glucagon (Glucagen) 1 mg Q15M PRN IM DECREASED GLUCOSE; Start 03/16/17 at 04:30 Glucose (Glutose) 15 gm Q15M PRN BUCCAL DECREASED GLUCOSE; Start 03/16/17 at 04 :30 Mycophenolate Mofetil (Cellcept) 500 mg TID PO Last administered on 03/20/17 12:33; Admin Dose 500 MG; Start 03/16/17 at 09:00 Ondansetron HCl (Zofran Inj) 4 mg Q6 PRN IV NAUSEA AND/OR VOMITING Last administered on 03/17/17 19:04; Admin Dose 4 MG; Start 03/16/17 at 04:30 Lactulose (Enulose) 20 gm DAILY PRN PO CONSTIPATION Last administered on 11:27; Admin Dose 20 GM; Start 03/16/17 at 04:30 Apixaban (Eliquis) 5 mg BID PO Last administered on 03/20/17 09:26; Admin Dose 5 MG; Start 03/16/17 at 09:00 Pantoprazole (Protonix Tab) 40 mg DAILY@06 PO Last administered on 03/20/17 05 :18; Admin Dose 40 MG; Start 03/16/17 at 06:00 Acetaminophen (Tylenol Tab) 650 mg Q6H PRN PO PAIN AND OR ELEVATED TEMP; Start 03/16/17 at 04:30 Diagnostic Test (Pha) (Accu-Chek) 1 ea 02 XX ; Start 03/17/17 at 02:00 Spironolactone (Aldactone) 50 mg DAILY PO Last administered on 03/20/17 09:26 ; Admin Dose 50 MG; Start 03/17/17 at 09:00 Potassium Chloride (Klor-Con 20) 20 meq BID PO Last administered on 03/20/17 09:26; Admin Dose 20 MEQ; Start 03/16/17 at 21:00 Hydromorphone HCl (Dilaudid) 0.5 mg Q4H PRN IV PAIN Last administered on 09:29; Admin Dose 0.5 MG; Start 03/17/17 at 15:30 Metoclopramide HCl (Reglan) 5 mg Q6 IV Last administered on 03/20/17 11:27; Admin Dose 5 MG; Start 03/18/17 at 00:00 Insulin Glargine (Lantus) 15 unit DAILY@20 SC ; Start 03/19/17 at 20:00 FABI OSORIO Mar 20, 2017 14:02
[2017-03-20] MEDS ORDERED: HYDROCODONE/APAP (5/325) TAB PO PRN (14:30)
[2017-03-20 19:27] VITALS: BP 95/62; RESP 20
--- NOTE | 2017-03-20 19:34 | CONS ---
Date/Time of Note Date/Time of Note DATE: 03/20/17 TIME: 19:33 Assessment/Plan Assessment/Plan Additional Assessment/Plan Additional Assessment/Plan IMPRESSION 1. Chronic abdominal pain. 2. Chronic nausea. May be related to her chronic vertigo. Diabetes also might be playing a role 3. Autoimmune hepatitis, with cirrhosis of the liver and portal hypertension. 4. Deep venous thrombosis for which she is on Eliquis. 5. Diabetes mellitus. 6. 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 Discussed with her daughter and has agreed to bring the patient to the office Consultation Date/Type/Reason Admit Date/Time Mar 16, 2017 at 02:06 24 HR Interval Summary Free Text/Dictation Patient complains of pain at the site of paracentesis She also complains of headache and nausea Exam/Review of Systems Vital Signs Vitals Vital Signs Date Time Temp Pulse Resp B/P Pulse Ox O2 Delivery O2 Flow Rate FiO2 03/20/17 19:27 97.8 90 20 95/62 95 Intake and Output 03/19/17 03/19/17 03/20/17 15:00 23:00 07:00 Intake Total 240 ml 360 ml Output Total 150 ml Balance 90 ml 360 ml Exam Constitutional: alert, oriented, well developed Psych: nl mood/affect, no complaints Head: atraumatic, normocephalic Eyes: EOMI, PERRL, nl conjunctiva, nl lids, nl sclera ENMT: nl external ears & nose, nl lips & teeth, nl nasal mucosa & septum Neck: non-tender, supple Respiratory: clear to auscultation, normal air movement Cardiovascular: nl pulses, regular rate and rhythm Gastrointestinal: nl liver, spleen, non-tender, soft Musculoskeletal: nl extremities to inspection, nl gait and stance Extremities: normal pulses 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, nl mental status, nl speech, nl strength Skin: nl turgor, No rash or lesions Lymph: nl lymph nodes Results Result Diagram: 03/20/17 0540 03/20/17 0540 Results 24 hrs Laboratory Tests Test 03/19/17 20:31 03/20/17 05:40 03/20/17 07:24 03/20/17 07:48 Bedside Glucose 133 81 White Blood Count 4.0 #L Red Blood Count 3.21 L Hemoglobin 10.7 L Hematocrit 31.5 L Mean Corpuscular Volume 98.1 Mean Corpuscular Hemoglobin 33.3 H Mean Corpuscular Hemoglobin Concent 34.0 Red Cell Distribution Width 15.3 H Platelet Count 134 L Mean Platelet Volume 9.4 Neutrophils % 51.7 Lymphocytes % 35.7 Monocytes % 9.5 Eosinophils % 2.3 Basophils % 0.8 Nucleated Red Blood Cells % 0.0 Neutrophils # 2.1 Lymphocytes # 1.4 Monocytes # 0.4 Eosinophils # 0.1 Basophils # 0.0 Nucleated Red Blood Cells # 0.0 Sodium Level 135 Potassium Level 4.1 Chloride Level 105 Carbon Dioxide Level 27 Anion Gap 7 L Blood Urea Nitrogen 14 Creatinine 1.22 H Glucose Level 87 Calcium Level 8.2 L Lab Scanned Report BLOOD TRANSFUSION Test 03/20/17 12:34 03/20/17 17:42 Bedside Glucose 139 105 Medications Medications Current Medications Dicyclomine HCl (Bentyl) 20 mg QID PRN PO ABDOMINAL DISCOMFORT; Start 03/16/17 at 04:00 Acetaminophen/ Hydrocodone Bitart ([place] (10/325)) 1 tab Q6 PRN GTB PAIN Last administered on 03/18/17t 05:42; Admin Dose 1 TAB; Start 03/16/17 at 04:00 Meclizine HCl (Antivert) 25 mg Q6 PRN PO DIZZINESS; Start 03/16/17 at 04:00 Miscellaneous Information 1 ea NOTE XX ; Start 03/16/17 at 04:30 Glucose (Glutose) 15 gm Q15M PRN PO DECREASED GLUCOSE; Start 03/16/17 at 04:30 Glucose (Glutose) 22.5 gm Q15M PRN PO DECREASED GLUCOSE; Start 03/16/17 at 04: 30 Dextrose (D50w Syringe) 25 ml Q15M PRN IV DECREASED GLUCOSE; Start 03/16/17 at 04:30 Dextrose (D50w Syringe) 50 ml Q15M PRN IV DECREASED GLUCOSE; Start 03/16/17 at 04:30 Glucagon (Glucagen) 1 mg Q15M PRN IM DECREASED GLUCOSE; Start 03/16/17 at 04:30 Glucose (Glutose) 15 gm Q15M PRN BUCCAL DECREASED GLUCOSE; Start 03/16/17 at 04 :30 Mycophenolate Mofetil (Cellcept) 500 mg TID PO Last administered on 03/20/17 12:33; Admin Dose 500 MG; Start 03/16/17 at 09:00 Ondansetron HCl (Zofran Inj) 4 mg Q6 PRN IV NAUSEA AND/OR VOMITING Last administered on 03/17/17 19:04; Admin Dose 4 MG; Start 03/16/17 at 04:30 Lactulose (Enulose) 20 gm DAILY PRN PO CONSTIPATION Last administered on 11:27; Admin Dose 20 GM; Start 03/16/17 at 04:30 Apixaban (Eliquis) 5 mg BID PO Last administered on 03/20/17 09:26; Admin Dose 5 MG; Start 03/16/17 at 09:00 Pantoprazole (Protonix Tab) 40 mg DAILY@06 PO Last administered on 03/20/17 05 :18; Admin Dose 40 MG; Start 03/16/17 at 06:00 Acetaminophen (Tylenol Tab) 650 mg Q6H PRN PO PAIN AND OR ELEVATED TEMP; Start 03/16/17 at 04:30 Diagnostic Test (Pha) (Accu-Chek) 1 ea 02 XX ; Start 03/17/17 at 02:00 Spironolactone (Aldactone) 50 mg DAILY PO Last administered on 03/20/17 09:26 ; Admin Dose 50 MG; Start 03/17/17 at 09:00 Potassium Chloride (Klor-Con 20) 20 meq BID PO Last administered on 03/20/17 09:26; Admin Dose 20 MEQ; Start 03/16/17 at 21:00 Hydromorphone HCl (Dilaudid) 0.5 mg Q4H PRN IV PAIN Last administered on 09:29; Admin Dose 0.5 MG; Start 03/17/17 at 15:30 Metoclopramide HCl (Reglan) 5 mg Q6 IV Last administered on 03/20/17 17:43; Admin Dose 5 MG; Start 03/18/17 at 00:00 Insulin Glargine (Lantus) 15 unit DAILY@20 SC ; Start 03/19/17 at 20:00 Acetaminophen/ Hydrocodone Bitart ([place] (5/325)) 1 tab Q6H PRN PO PAIN LEVEL 7 -10; Start 03/20/17 at 14:30 LAURA RAMIREZ MD Mar 20, 2017 19:34
[2017-03-20] MEDS: INSULIN GLARGINE [LANtus] 3 ML PEN SC SCH (21:46)
[2017-03-21] MEDS: ACCU-CHEK XX SCH (02:00)
[2017-03-21 05:41] LABS: ADD SCAN DIFF NO
[2017-03-21 05:51] LABS: BASOPHILS % 0.8 % (0.0-2.0); EOSINOPHILS # 0.1 10^3/ul (0.0-0.5); EOSINOPHILS % 2.5 % (0.0-7.0); HEMATOCRIT 32.9 % (37.0-47.0); LYMPHOCYTES # 1.9 10^3/ul (0.8-2.9); LYMPHOCYTES % 36.2 % (15.0-51.0); MEAN CORPUSCULAR HEMOGLOBIN 32.7 pg (29.0-33.0); MEAN CORPUSCULAR HGB CONC 33.4 g/dl (32.0-37.0); MEAN CORPUSCULAR VOLUME 97.9 fl (82.0-101.0); MEAN PLATELET VOLUME 9.6 fl (7.4-10.4); MONOCYTE # 0.5 10^3/ul (0.3-0.9); MONOCYTES % 10.1 % (0.0-11.0); NEUTROPHIL # 2.6 10^3/ul (1.6-7.5); NEUTROPHILS % 50.2 % (39.0-77.0); PLATELET COUNT 126 10^3/UL (140-415); RED BLOOD COUNT 3.36 10^6/ul (4.20-5.40); RED CELL DISTRIBUTION WIDTH 15.5 % (11.5-14.5); WHITE BLOOD COUNT 5.2 10^3/ul (4.8-10.8)
[2017-03-21] MEDS: FUROSEMIDE 40 MG INJ IV SCH ×2 (06:00→18:04)
[2017-03-21] MEDS: PANTOPRAZOLE (EC) 40 MG TAB PO SCH (06:14)
[2017-03-21] MEDS: METOCLOPRAMIDE 10 MG INJ IV SCH ×4 (06:14→23:32)
[2017-03-21 06:34] LABS: CALCIUM 8.3 mg/dl (8.4-10.2); CREATININE 1.13 mg/dl (0.44-1.00); POTASSIUM 4.5 mmol/L (3.5-5.1)
[2017-03-21 07:45] VITALS: BP 78/48; RESP 19
[2017-03-21] MEDS: INSULIN ASPART [NOVOLOG] 3 ML PEN SC SCH ×4 (08:15→20:45)
[2017-03-21] MEDS: APIXABAN 5 MG TABLET PO SCH ×2 (09:13→20:43)
[2017-03-21] MEDS: MYCOPHENOLATE 250 MG CAP PO SCH ×3 (09:13→20:42)
[2017-03-21 09:14] VITALS: BP 94/60; PULSE 87
[2017-03-21] MEDS: SPIRONOLACTONE 50 MG TAB PO SCH (09:14)
[2017-03-21] MEDS: POTASSIUM CHLORIDE (SR) 20 MEQ TAB PO SCH ×2 (09:14→20:43)
--- NOTE | 2017-03-21 15:59 | CONS ---
Date/Time of Note Date/Time of Note DATE: 03/21/17 TIME: 15:58 Assessment/Plan Assessment/Plan Additional Assessment/Plan Additional Assessment/Plan IMPRESSION 1. Chronic abdominal pain. 2. Chronic nausea. May be related to her chronic vertigo. Diabetes also might be playing a role 3. Autoimmune hepatitis, with cirrhosis of the liver and portal hypertension. 4. Deep venous thrombosis for which she is on Eliquis. 5. Diabetes mellitus. 6. 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 Discussed with her daughter and has agreed to bring the patient to the office [facility] for pain Consultation Date/Type/Reason Admit Date/Time Mar 16, 2017 at 02:06 24 HR Interval Summary Constitutional: improved Exam/Review of Systems Vital Signs Vitals Vital Signs Date Time Temp Pulse Resp B/P Pulse Ox O2 Delivery O2 Flow Rate FiO2 03/21/17 09:14 87 94/60 03/21/17 07:45 98.0 19 94 03/20/17 20:00 Room Air Intake and Output 03/20/17 03/20/17 03/21/17 15:00 23:00 07:00 Intake Total 920 ml Balance 920 ml Exam Constitutional: alert, oriented, well developed Psych: nl mood/affect, no complaints Head: atraumatic, normocephalic Eyes: EOMI, PERRL, nl conjunctiva, nl lids, nl sclera ENMT: nl external ears & nose, nl lips & teeth, nl nasal mucosa & septum Neck: non-tender, supple Respiratory: clear to auscultation, normal air movement Cardiovascular: nl pulses, regular rate and rhythm Gastrointestinal: nl liver, spleen, non-tender, soft Musculoskeletal: nl extremities to inspection, nl gait and stance Extremities: normal pulses 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, nl mental status, nl speech, nl strength Skin: nl turgor, No rash or lesions Lymph: nl lymph nodes Results Result Diagram: 03/21/17 0515 03/21/17 0515 Results 24 hrs Laboratory Tests Test 03/20/17 17:42 03/20/17 21:41 03/21/17 05:15 03/21/17 08:14 Bedside Glucose 105 160 79 White Blood Count 5.2 # Red Blood Count 3.36 L Hemoglobin 11.0 L Hematocrit 32.9 L Mean Corpuscular Volume 97.9 Mean Corpuscular Hemoglobin 32.7 Mean Corpuscular Hemoglobin Concent 33.4 Red Cell Distribution Width 15.5 H Platelet Count 126 L Mean Platelet Volume 9.6 Neutrophils % 50.2 Lymphocytes % 36.2 Monocytes % 10.1 Eosinophils % 2.5 Basophils % 0.8 Nucleated Red Blood Cells % 0.0 Neutrophils # 2.6 Lymphocytes # 1.9 Monocytes # 0.5 Eosinophils # 0.1 Basophils # 0.0 Nucleated Red Blood Cells # 0.0 Sodium Level 136 Potassium Level 4.5 Chloride Level 107 Carbon Dioxide Level 24 Anion Gap 10 Blood Urea Nitrogen 12 Creatinine 1.13 H Glucose Level 90 Calcium Level 8.3 L Test 03/21/17 12:13 Bedside Glucose 106 Medications Medications Current Medications Dicyclomine HCl (Bentyl) 20 mg QID PRN PO ABDOMINAL DISCOMFORT; Start 03/16/17 at 04:00 Acetaminophen/ Hydrocodone Bitart ([place] (10325)) 1 tab Q6 PRN GTB PAIN Last administered on 03/18/17 05:42; Admin Dose 1 TAB; Start 03/16/17 at 04:00 Meclizine HCl (Antivert) 25 mg Q6 PRN PO DIZZINESS; Start 03/16/17 at 04:00 Miscellaneous Information 1 ea NOTE XX ; Start 03/16/17 at 04:30 Glucose (Glutose) 15 gm Q15M PRN PO DECREASED GLUCOSE; Start 03/16/17 at 04:30 Glucose (Glutose) 22.5 gm Q15M PRN PO DECREASED GLUCOSE; Start 03/16/17 at 04: 30 Dextrose (D50w Syringe) 25 ml Q15M PRN IV DECREASED GLUCOSE; Start 03/16/17 at 04:30 Dextrose (D50w Syringe) 50 ml Q15M PRN IV DECREASED GLUCOSE; Start 03/16/17 at 04:30 Glucagon (Glucagen) 1 mg Q15M PRN IM DECREASED GLUCOSE; Start 03/16/17 at 04:30 Glucose (Glutose) 15 gm Q15M PRN BUCCAL DECREASED GLUCOSE; Start 03/16/17 at 04 :30 Mycophenolate Mofetil (Cellcept) 500 mg TID PO Last administered on 03/21/17 12:48; Admin Dose 500 MG; Start 03/16/17 at 09:00 Ondansetron HCl (Zofran Inj) 4 mg Q6 PRN IV NAUSEA AND/OR VOMITING Last administered on 03/17/17 19:04; Admin Dose 4 MG; Start 03/16/17 at 04:30 Lactulose (Enulose) 20 gm DAILY PRN PO CONSTIPATION Last administered on 11:27; Admin Dose 20 GM; Start 03/16/17 at 04:30 Apixaban (Eliquis) 5 mg BID PO Last administered on 03/21/17 09:13; Admin Dose 5 MG; Start 03/16/17 at 09:00 Pantoprazole (Protonix Tab) 40 mg DAILY@06 PO Last administered on 03/21/17 06 :14; Admin Dose 40 MG; Start 03/16/17 at 06:00 Acetaminophen (Tylenol Tab) 650 mg Q6H PRN PO PAIN AND OR ELEVATED TEMP Last administered on 03/21/17 06:14; Admin Dose 650 MG; Start 03/16/17 at 04:30 Diagnostic Test (Pha) (Accu-Chek) 1 ea 02 XX ; Start 03/17/17 at 02:00 Spironolactone (Aldactone) 50 mg DAILY PO Last administered on 03/21/17 09:14 ; Admin Dose 50 MG; Start 03/17/17 at 09:00 Potassium Chloride (Klor-Con 20) 20 meq BID PO Last administered on 03/21/17 09:14; Admin Dose 20 MEQ; Start 03/16/17 at 21:00 Hydromorphone HCl (Dilaudid) 0.5 mg Q4H PRN IV PAIN Last administered on 09:29; Admin Dose 0.5 MG; Start 03/17/17 at 15:30 Metoclopramide HCl (Reglan) 5 mg Q6 IV Last administered on 03/21/17 12:48; Admin Dose 5 MG; Start 03/18/17 at 00:00 Insulin Glargine (Lantus) 15 unit DAILY@20 SC Last administered on 03/20/17 21 :46; Admin Dose 15 UNIT; Start 03/19/17 at 20:00 Acetaminophen/ Hydrocodone Bitart ([place] (5/325)) 1 tab Q6H PRN PO PAIN LEVEL 7 -10; Start 03/20/17 at 14:30 LAURA RAMIREZ MD Mar 21, 2017 15:59
--- NOTE | 2017-03-21 17:19 | PDOCDIS ---
Discharge Instructions CONDITION Patient Condition: Stable HOME CARE INSTRUCTIONS: Special Diet: 2gm na, 2000 ada. ACTIVITY: Activity Restrictions: Slowly Increase Activity FOLLOW UP/APPOINTMENTS Follow-up Plan f/u pcp [address] thompson 1 wk see [facility] LYNETTE SAINZ MD Mar 21, 2017 17:19
[2017-03-21] MEDS: HYDROmorphONE 1 MG/ML SYG IV PRN (17:50)
[2017-03-21 18:10] VITALS: BP 92/56; PULSE 91
--- NOTE | 2017-03-21 18:25 | PN ---
Date/Time of Note Date/Time of Note DATE: 03/21/17 TIME: 18:24 Assessment/Plan VTE Prophylaxis VTE Prophylaxis Intervention: other Lines/Catheters IV Catheter Type (from Nrs): Saline Lock Assessment/Plan Chief Complaint/Hosp Course IMPRESSION: The patient has ascites, anasarca, deep venous thrombosis of the lower extremities. Underlying possible chronic kidney disease, abnormal liver function tests, anemia, diabetes mellitus and autoimmune hepatitis. The patient has underlying chronic kidney disease. plan pain meds snf Problems: Subjective 24 Hr Interval Summary Subjective hx not possible: other (wewakness will need snf) Exam/Review of Systems Vital Signs Vitals Vital Signs Date Time Temp Pulse Resp B/P Pulse Ox O2 Delivery O2 Flow Rate FiO2 03/21/17 18:10 91 92/56 03/21/17 07:45 98.0 19 94 03/20/17 20:00 Room Air Intake and Output 03/20/17 03/20/17 03/21/17 15:00 23:00 07:00 Intake Total 920 ml Balance 920 ml Exam Neck: supple Respiratory: clear to auscultation Cardiovascular: regular rate and rhythm Gastrointestinal: ascites (+), soft, tender (+) Results Result Diagram: 03/21/17 0515 03/21/17 0515 Results 24 hrs Laboratory Tests Test 03/20/17 21:41 03/21/17 05:15 03/21/17 08:14 03/21/17 12:13 Bedside Glucose 160 79 106 White Blood Count 5.2 # Red Blood Count 3.36 L Hemoglobin 11.0 L Hematocrit 32.9 L Mean Corpuscular Volume 97.9 Mean Corpuscular Hemoglobin 32.7 Mean Corpuscular Hemoglobin Concent 33.4 Red Cell Distribution Width 15.5 H Platelet Count 126 L Mean Platelet Volume 9.6 Neutrophils % 50.2 Lymphocytes % 36.2 Monocytes % 10.1 Eosinophils % 2.5 Basophils % 0.8 Nucleated Red Blood Cells % 0.0 Neutrophils # 2.6 Lymphocytes # 1.9 Monocytes # 0.5 Eosinophils # 0.1 Basophils # 0.0 Nucleated Red Blood Cells # 0.0 Sodium Level 136 Potassium Level 4.5 Chloride Level 107 Carbon Dioxide Level 24 Anion Gap 10 Blood Urea Nitrogen 12 Creatinine 1.13 H Glucose Level 90 Calcium Level 8.3 L Test 03/21/17 17:29 Bedside Glucose 132 Medications Medications Current Medications Dicyclomine HCl (Bentyl) 20 mg QID PRN PO ABDOMINAL DISCOMFORT; Start 03/16/17 at 04:00 Acetaminophen/ Hydrocodone Bitart ([place] (10325)) 1 tab Q6 PRN GTB PAIN Last administered on 03/18/17 05:42; Admin Dose 1 TAB; Start 03/16/17 at 04:00 Meclizine HCl (Antivert) 25 mg Q6 PRN PO DIZZINESS; Start 03/16/17 at 04:00 Miscellaneous Information 1 ea NOTE XX ; Start 03/16/17 at 04:30 Glucose (Glutose) 15 gm Q15M PRN PO DECREASED GLUCOSE; Start 03/16/17 at 04:30 Glucose (Glutose) 22.5 gm Q15M PRN PO DECREASED GLUCOSE; Start 03/16/17 at 04: 30 Dextrose (D50w Syringe) 25 ml Q15M PRN IV DECREASED GLUCOSE; Start 03/16/17 at 04:30 Dextrose (D50w Syringe) 50 ml Q15M PRN IV DECREASED GLUCOSE; Start 03/16/17 at 04:30 Glucagon (Glucagen) 1 mg Q15M PRN IM DECREASED GLUCOSE; Start 03/16/17 at 04:30 Glucose (Glutose) 15 gm Q15M PRN BUCCAL DECREASED GLUCOSE; Start 03/16/17 at 04 :30 Mycophenolate Mofetil (Cellcept) 500 mg TID PO Last administered on 03/21/17 12:48; Admin Dose 500 MG; Start 03/16/17 at 09:00 Ondansetron HCl (Zofran Inj) 4 mg Q6 PRN IV NAUSEA AND/OR VOMITING Last administered on 03/17/17 19:04; Admin Dose 4 MG; Start 03/16/17 at 04:30 Lactulose (Enulose) 20 gm DAILY PRN PO CONSTIPATION Last administered on 11:27; Admin Dose 20 GM; Start 03/16/17 at 04:30 Apixaban (Eliquis) 5 mg BID PO Last administered on 03/21/17 09:13; Admin Dose 5 MG; Start 03/16/17 at 09:00 Pantoprazole (Protonix Tab) 40 mg DAILY@06 PO Last administered on 03/21/17 06 :14; Admin Dose 40 MG; Start 03/16/17 at 06:00 Acetaminophen (Tylenol Tab) 650 mg Q6H PRN PO PAIN AND OR ELEVATED TEMP Last administered on 03/21/17 06:14; Admin Dose 650 MG; Start 03/16/17 at 04:30 Diagnostic Test (Pha) (Accu-Chek) 1 ea 02 XX ; Start 03/17/17 at 02:00 Spironolactone (Aldactone) 50 mg DAILY PO Last administered on 03/21/17 09:14 ; Admin Dose 50 MG; Start 03/17/17 at 09:00 Potassium Chloride (Klor-Con 20) 20 meq BID PO Last administered on 03/21/17 09:14; Admin Dose 20 MEQ; Start 03/16/17 at 21:00 Hydromorphone HCl (Dilaudid) 0.5 mg Q4H PRN IV PAIN Last administered on 17:50; Admin Dose 0.5 MG; Start 03/17/17 at 15:30 Metoclopramide HCl (Reglan) 5 mg Q6 IV Last administered on 03/21/17 17:49; Admin Dose 5 MG; Start 03/18/17 at 00:00 Insulin Glargine (Lantus) 15 unit DAILY@20 SC Last administered on 03/20/17 21 :46; Admin Dose 15 UNIT; Start 03/19/17 at 20:00 Acetaminophen/ Hydrocodone Bitart ([place] (5/325)) 1 tab Q6H PRN PO PAIN LEVEL 7 -10; Start 03/20/17 at 14:30 LYNETTE SAINZ MD Mar 21, 2017 18:25
[2017-03-21 19:36] VITALS: BP 125/75; RESP 18
[2017-03-21] MEDS: ONDANSETRON 4 MG INJ IV PRN (19:49)
[2017-03-21] MEDS: INSULIN GLARGINE [LANtus] 3 ML PEN SC SCH (20:50)
[2017-03-22] MEDS: ACCU-CHEK XX SCH (02:00)
[2017-03-22] MEDS: PANTOPRAZOLE (EC) 40 MG TAB PO SCH (05:48)
[2017-03-22] MEDS: METOCLOPRAMIDE 10 MG INJ IV SCH ×3 (05:48→17:38)
[2017-03-22] MEDS: FUROSEMIDE 40 MG INJ IV SCH ×2 (05:49→17:39)
[2017-03-22 07:42] VITALS: BP 94/58; RESP 16
[2017-03-22] MEDS: INSULIN ASPART [NOVOLOG] 3 ML PEN SC SCH ×4 (07:49→20:26)
[2017-03-22] MEDS: APIXABAN 5 MG TABLET PO SCH ×2 (09:22→20:43)
[2017-03-22] MEDS: POTASSIUM CHLORIDE (SR) 20 MEQ TAB PO SCH ×2 (09:22→20:43)
[2017-03-22] MEDS: MYCOPHENOLATE 250 MG CAP PO SCH ×3 (09:22→20:43)
[2017-03-22] MEDS: SPIRONOLACTONE 50 MG TAB PO SCH (09:23)
--- NOTE | 2017-03-22 14:34 | CONS ---
Date/Time of Note Date/Time of Note DATE: 03/22/17 TIME: 14:33 Assessment/Plan Assessment/Plan Additional Assessment/Plan Assessment/Plan Additional Assessment/Plan Additional Assessment/Plan IMPRESSION 1. Chronic abdominal pain. 2. Chronic nausea. May be related to her chronic vertigo. Diabetes also might be playing a role 3. Autoimmune hepatitis, with cirrhosis of the liver and portal hypertension. 4. Deep venous thrombosis for which she is on Eliquis. 5. Diabetes mellitus. 6. Headache,and insomnia responded well to Elavil 7. 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 Discussed with her daughter and has agreed to bring the patient to the office [facility] for pain Consultation Date/Type/Reason Admit Date/Time Mar 16, 2017 at 02:06 24 HR Interval Summary Constitutional: improved, no complaints Exam/Review of Systems Vital Signs Vitals Vital Signs Date Time Temp Pulse Resp B/P Pulse Ox O2 Delivery O2 Flow Rate FiO2 03/22/17 07:42 98.1 87 16 94/58 95 03/20/17 20:00 Room Air Intake and Output 03/21/17 03/21/17 03/22/17 14:59 22:59 06:59 Intake Total 320 ml 300 ml Balance 320 ml 300 ml Exam Constitutional: alert, oriented, well developed Psych: nl mood/affect, no complaints Head: atraumatic, normocephalic Eyes: EOMI, PERRL, nl conjunctiva, nl lids, nl sclera ENMT: nl external ears & nose, nl lips & teeth, nl nasal mucosa & septum Neck: non-tender, supple Respiratory: clear to auscultation, normal air movement Cardiovascular: nl pulses, regular rate and rhythm Gastrointestinal: nl liver, spleen, non-tender, soft Musculoskeletal: nl extremities to inspection, nl gait and stance Extremities: normal pulses 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, nl mental status, nl speech, nl strength Skin: nl turgor, No rash or lesions Lymph: nl lymph nodes Results Result Diagram: 03/21/17 0515 03/21/17 0515 Results 24 hrs Laboratory Tests Test 03/21/17 17:29 03/21/17 20:44 03/22/17 07:47 03/22/17 12:10 Bedside Glucose 132 151 84 99 Medications Medications Current Medications Dicyclomine HCl (Bentyl) 20 mg QID PRN PO ABDOMINAL DISCOMFORT; Start 03/16/17 at 04:00 Acetaminophen/ Hydrocodone Bitart ([place] (10)) 1 tab Q6 PRN GTB PAIN Last administered on 03/18/17 05:42; Admin Dose 1 TAB; Start 03/16/17 at 04:00 Meclizine HCl (Antivert) 25 mg Q6 PRN PO DIZZINESS; Start 03/16/17 at 04:00 Miscellaneous Information 1 ea NOTE XX ; Start 03/16/17 at 04:30 Glucose (Glutose) 15 gm Q15M PRN PO DECREASED GLUCOSE; Start 03/16/17 at 04:30 Glucose (Glutose) 22.5 gm Q15M PRN PO DECREASED GLUCOSE; Start 03/16/17 at 04: 30 Dextrose (D50w Syringe) 25 ml Q15M PRN IV DECREASED GLUCOSE; Start 03/16/17 at 04:30 Dextrose (D50w Syringe) 50 ml Q15M PRN IV DECREASED GLUCOSE; Start 03/16/17 at 04:30 Glucagon (Glucagen) 1 mg Q15M PRN IM DECREASED GLUCOSE; Start 03/16/17 at 04:30 Glucose (Glutose) 15 gm Q15M PRN BUCCAL DECREASED GLUCOSE; Start 03/16/17 at 04 :30 Mycophenolate Mofetil (Cellcept) 500 mg TID PO Last administered on 03/22/17 09:22; Admin Dose 500 MG; Start 03/16/17 at 09:00 Ondansetron HCl (Zofran Inj) 4 mg Q6 PRN IV NAUSEA AND/OR VOMITING Last administered on 03/21/17 19:49; Admin Dose 4 MG; Start 03/16/17 at 04:30 Lactulose (Enulose) 20 gm DAILY PRN PO CONSTIPATION Last administered on 11:27; Admin Dose 20 GM; Start 03/16/17 at 04:30 Apixaban (Eliquis) 5 mg BID PO Last administered on 03/22/17 09:22; Admin Dose 5 MG; Start 03/16/17 at 09:00 Pantoprazole (Protonix Tab) 40 mg DAILY@06 PO Last administered on 03/22/17 05 :48; Admin Dose 40 MG; Start 03/16/17 at 06:00 Acetaminophen (Tylenol Tab) 650 mg Q6H PRN PO PAIN AND OR ELEVATED TEMP Last administered on 03/21/17 06:14; Admin Dose 650 MG; Start 03/16/17 at 04:30 Diagnostic Test (Pha) (Accu-Chek) 1 ea 02 XX ; Start 03/17/17 at 02:00 Spironolactone (Aldactone) 50 mg DAILY PO Last administered on 03/22/17 09:23 ; Admin Dose 50 MG; Start 03/17/17 at 09:00 Potassium Chloride (Klor-Con 20) 20 meq BID PO Last administered on 03/22/17 09:22; Admin Dose 20 MEQ; Start 03/16/17 at 21:00 Hydromorphone HCl (Dilaudid) 0.5 mg Q4H PRN IV PAIN Last administered on 17:50; Admin Dose 0.5 MG; Start 03/17/17 at 15:30 Metoclopramide HCl (Reglan) 5 mg Q6 IV Last administered on 03/22/17 05:48; Admin Dose 5 MG; Start 03/18/17 at 00:00 Insulin Glargine (Lantus) 15 unit DAILY@20 SC Last administered on 03/21/17 20 :50; Admin Dose 15 UNIT; Start 03/19/17 at 20:00 Acetaminophen/ Hydrocodone Bitart ([place] (5/325)) 1 tab Q6H PRN PO PAIN LEVEL 7 -10 Last administered on 03/22/17 12:02; Admin Dose 1 TAB; Start 03/20/17 at 14 :30 LAURA RAMIREZ MD Mar 22, 2017 14:34
[2017-03-22] MEDS: HYDROmorphONE 1 MG/ML SYG IV PRN (14:46)
--- NOTE | 2017-03-22 18:16 | PN ---
Date/Time of Note Date/Time of Note DATE: 03/22/17 TIME: 18:15 Assessment/Plan VTE Prophylaxis VTE Prophylaxis Intervention: other Lines/Catheters IV Catheter Type (from Nrsg): Saline Lock Assessment/Plan Chief Complaint/Hosp Course IMPRESSION: The patient has ascites, anasarca, deep venous thrombosis of the lower extremities. Underlying possible chronic kidney disease, abnormal liver function tests, anemia, diabetes mellitus and autoimmune hepatitis. The patient has underlying chronic kidney disease. plan pain meds snf PT OT Problems: Subjective 24 Hr Interval Summary Subjective hx not possible: other (WEAKNESS ) Exam/Review of Systems Vital Signs Vitals Vital Signs Date Time Temp Pulse Resp B/P Pulse Ox O2 Delivery O2 Flow Rate FiO2 03/22/17 07:42 98.1 87 16 94/58 95 03/20/17 20:00 Room Air Intake and Output 03/21/17 03/21/17 03/22/17 15:00 23:00 07:00 Intake Total 320 ml 300 ml Balance 320 ml 300 ml Exam Neck: supple Respiratory: clear to auscultation Cardiovascular: regular rate and rhythm Gastrointestinal: soft Genitourinary - Female: nl adnexae Musculoskeletal: nl extremities to inspection Results Result Diagram: 03/21/1715 03/21/17 0515 Results 24 hrs Laboratory Tests Test 03/21/17 20:44 03/22/17 07:47 03/22/17 12:10 Bedside Glucose 151 84 99 Medications Medications Current Medications Dicyclomine HCl (Bentyl) 20 mg QID PRN PO ABDOMINAL DISCOMFORT; Start 03/16/17 at 04:00 Acetaminophen/ Hydrocodone Bitart ([place] (10/325)) 1 tab Q6 PRN GTB PAIN Last administered on 03/18/17t 05:42; Admin Dose 1 TAB; Start 03/16/17 at 04:00 Meclizine HCl (Antivert) 25 mg Q6 PRN PO DIZZINESS; Start 03/16/17 at 04:00 Miscellaneous Information 1 ea NOTE XX ; Start 03/16/17 at 04:30 Glucose (Glutose) 15 gm Q15M PRN PO DECREASED GLUCOSE; Start 03/16/17 at 04:30 Glucose (Glutose) 22.5 gm Q15M PRN PO DECREASED GLUCOSE; Start 03/16/17 at 04: 30 Dextrose (D50w Syringe) 25 ml Q15M PRN IV DECREASED GLUCOSE; Start 03/16/17 at 04:30 Dextrose (D50w Syringe) 50 ml Q15M PRN IV DECREASED GLUCOSE; Start 03/16/17 at 04:30 Glucagon (Glucagen) 1 mg Q15M PRN IM DECREASED GLUCOSE; Start 03/16/17 at 04:30 Glucose (Glutose) 15 gm Q15M PRN BUCCAL DECREASED GLUCOSE; Start 03/16/17 at 04 :30 Mycophenolate Mofetil (Cellcept) 500 mg TID PO Last administered on 03/22/17 14:09; Admin Dose 500 MG; Start 03/16/17 at 09:00 Ondansetron HCl (Zofran Inj) 4 mg Q6 PRN IV NAUSEA AND/OR VOMITING Last administered on 03/21/17 19:49; Admin Dose 4 MG; Start 03/16/17 at 04:30 Lactulose (Enulose) 20 gm DAILY PRN PO CONSTIPATION Last administered on 11:27; Admin Dose 20 GM; Start 03/16/17 at 04:30 Apixaban (Eliquis) 5 mg BID PO Last administered on 03/22/17 09:22; Admin Dose 5 MG; Start 03/16/17 at 09:00 Pantoprazole (Protonix Tab) 40 mg DAILY@06 PO Last administered on 03/22/17 05 :48; Admin Dose 40 MG; Start 03/16/17 at 06:00 Acetaminophen (Tylenol Tab) 650 mg Q6H PRN PO PAIN AND OR ELEVATED TEMP Last administered on 03/21/17 06:14; Admin Dose 650 MG; Start 03/16/17 at 04:30 Diagnostic Test (Pha) (Accu-Chek) 1 ea 02 XX ; Start 03/17/17 at 02:00 Spironolactone (Aldactone) 50 mg DAILY PO Last administered on 03/22/17 09:23 ; Admin Dose 50 MG; Start 03/17/17 at 09:00 Potassium Chloride (Klor-Con 20) 20 meq BID PO Last administered on 03/22/17 09:22; Admin Dose 20 MEQ; Start 03/16/17 at 21:00 Hydromorphone HCl (Dilaudid) 0.5 mg Q4H PRN IV PAIN Last administered on 14:46; Admin Dose 0.5 MG; Start 03/17/17 at 15:30 Metoclopramide HCl (Reglan) 5 mg Q6 IV Last administered on 03/22/17 17:38; Admin Dose 5 MG; Start 03/18/17 at 00:00 Insulin Glargine (Lantus) 15 unit DAILY@20 SC Last administered on 03/21/17 20 :50; Admin Dose 15 UNIT; Start 03/19/17 at 20:00 Acetaminophen/ Hydrocodone Bitart ([place] (5/325)) 1 tab Q6H PRN PO PAIN LEVEL 7 -10 Last administered on 03/22/17 12:02; Admin Dose 1 TAB; Start 03/20/17 at 14 :30 LYENTTE SAINZ MD Mar 22, 2017 18:16
[2017-03-22 19:47] VITALS: BP 100/58; RESP 16
[2017-03-22] MEDS: INSULIN GLARGINE [LANtus] 3 ML PEN SC SCH (20:48)
[2017-03-23] MEDS: METOCLOPRAMIDE 10 MG INJ IV SCH ×3 (01:15→12:41)
[2017-03-23] MEDS: ACCU-CHEK XX SCH (02:00)
[2017-03-23] MEDS: PANTOPRAZOLE (EC) 40 MG TAB PO SCH (05:42)
[2017-03-23] MEDS: FUROSEMIDE 40 MG INJ IV SCH (05:43)
[2017-03-23 07:52] VITALS: BP 96/61; RESP 16
[2017-03-23] MEDS: INSULIN ASPART [NOVOLOG] 3 ML PEN SC SCH ×2 (08:15→12:15)
[2017-03-23] MEDS: POTASSIUM CHLORIDE (SR) 20 MEQ TAB PO SCH (08:38)
[2017-03-23] MEDS: SPIRONOLACTONE 50 MG TAB PO SCH (08:39)
[2017-03-23] MEDS: MYCOPHENOLATE 250 MG CAP PO SCH ×2 (08:39→12:41)
[2017-03-23] MEDS: APIXABAN 5 MG TABLET PO SCH (08:39)
== END 2017-03-23 14:50 | DRG 433 ==
LOC: MS2 03-16 02:06
PROVIDERS: ADMIT Internal Medicine Nephrology; ATTEND Internal Medicine Nephrology
PROC: 0W9G3ZZ Drainage of Peritoneal Cavity, Percutaneous Approach (ICD-10-PCS; principal; 2017-03-19)
DX: K74.60 Unspecified cirrhosis of liver (principal); R18.8 Other ascites; K76.6 Portal hypertension; K75.4 Autoimmune hepatitis; E11.22 Type 2 diabetes mellitus with diabetic chronic kidney disease; I12.9 Hypertensive chronic kidney disease with stage 1 through stage 4 chronic kidney disease, or unspecified chronic kidney disease; N18.9 Chronic kidney disease, unspecified; Z79.01 Long term (current) use of anticoagulants; Z86.718 Personal history of other venous thrombosis and embolism; Z79.4 Long term (current) use of insulin; R11.0 Nausea; G89.29 Other chronic pain; R10.9 Unspecified abdominal pain; R51 Headache; G47.00 Insomnia, unspecified
CPT/HCPCS: 36430; 80048; 80053; 82105; 82140; 82962; 85025; 85610; 85730; 86850; 86900; 86901; J1170; J1815; J1940; J2405; J2765; J7517; P9059

== ENCOUNTER 2017-04-02 20:32 | Inpatient (IN) | payer OTHER ==
[~2017-04-02] VITALS: Ht 157.5 cm; Wt 66.8 kg
[2017-04-02] MEDS ORDERED: morphine 4 MG/ML VIAL IV STA (20:36)
[2017-04-02] MEDS ORDERED: ONDANSETRON 4 MG INJ IV STA (20:36)
[2017-04-02 20:56] LABS: ADD SCAN DIFF NO
[2017-04-02 21:07] LABS: HEMATOCRIT 31.1 % (37.0-47.0); HEMOGLOBIN 10.6 g/dl (12.0-16.0); MEAN CORPUSCULAR VOLUME 95.1 fl (82.0-101.0); RED BLOOD COUNT 3.27 10^6/ul (4.20-5.40); WHITE BLOOD COUNT 5.5 10^3/ul (4.8-10.8)
[2017-04-02 21:08] LABS: BASOPHIL # 0.1 10^3/ul (0.0-0.1); BASOPHILS % 1.1 % (0.0-2.0); EOSINOPHILS # 0.1 10^3/ul (0.0-0.5); EOSINOPHILS % 1.1 % (0.0-7.0); LYMPHOCYTES # 1.9 10^3/ul (0.8-2.9); LYMPHOCYTES % 33.8 % (15.0-51.0); MEAN CORPUSCULAR HEMOGLOBIN 32.4 pg (29.0-33.0); MEAN CORPUSCULAR HGB CONC 34.1 g/dl (32.0-37.0); MEAN PLATELET VOLUME 9.6 fl (7.4-10.4); MONOCYTE # 0.4 10^3/ul (0.3-0.9); NEUTROPHIL # 3.1 10^3/ul (1.6-7.5); NEUTROPHILS % 55.8 % (39.0-77.0); PLATELET COUNT 172 10^3/UL (140-415); RED CELL DISTRIBUTION WIDTH 15.9 % (11.5-14.5)
[2017-04-02 21:17] LABS: ALANINE AMINOTRANSFERASE 37 IU/L (13-69); ALBUMIN/GLOBULIN RATIO 0.88; ALKALINE PHOSPHATASE 218 IU/L (42-121); ANION GAP 17 (8-16); ASPARTATE AMINO TRANSFERASE 77 IU/L (15-46); BILIRUBIN,INDIRECT 0.9 mg/dl (0-1.1); BILIRUBIN,TOTAL 0.9 mg/dl (0.2-1.3); BLOOD UREA NITROGEN 9 mg/dl (7-20); CALCIUM 9.1 mg/dl (8.4-10.2); CARBON DIOXIDE 26 mmol/L (21-31); CHLORIDE 95 mmol/L (97-110); CREATININE 0.69 mg/dl (0.44-1.00); GLUCOSE 226 mg/dl (70-220); POTASSIUM 3.9 mmol/L (3.5-5.1); SODIUM 134 mmol/L (135-144); TOTAL PROTEIN 6.4 g/dl (6.1-8.1)
[2017-04-02] MEDS ORDERED: ONDANSETRON 4 MG INJ IV PRN (21:30)
[2017-04-02] MEDS ORDERED: ACETAMINOPHEN 325 MG TAB PO PRN (21:30)
[2017-04-02 21:49] LABS: TROPONIN-I < 0.012 ng/ml (0.00-0.12)
[2017-04-02 22:01] VITALS: TEMP 98.6
[2017-04-02 22:16] LABS: INR 1.28; PROTIME 16.1 Sec (12.2-14.2); PT RATIO 1.3
[2017-04-02 22:17] LABS: PARTIAL THROMBOPLASTIN TIME 27.1 Sec (25.0-35.0)
[2017-04-02 22:44] VITALS: Ht 157.5 cm; Wt 66.8 kg
--- NOTE | 2017-04-02 22:59 | ERA ---
ER Documentation Chief Complaint Date/Time DATE: 04/02/17 TIME: 22:56 Chief Complaint RLQ AP TODAY +N/V S/P PARACENTESIS 2 WKS AGO HPI Patient is a 61-year-old female with cirrhosis, diabetes, and chronic kidney disease who presents with abdominal pain. She was brought in by ambulance. She has had vomiting and abdominal pain all day and describes it as an 8 out of 10. She was transferred from a nursing facility. She was diagnosed with liver failure in September. She has had her centesis previously and her last paracentesis was 2 weeks ago. The ascites is now worse. She has not eaten for the past 2 days. She did see Dr. Sainz her primary doctor today. ROS All systems reviewed and are negative except as per history of present illness. Medications Home Meds Active Scripts Ciprofloxacin Hcl* (Ciprofloxacin Hcl*) 500 Mg Tablet, 500 MG PO BID for 7 Days , #14 TAB Prov:LYNETTE SAINZ MD 03/07/17 Pantoprazole Sodium (Protonix) 40 Mg , 40 MG PO DAILY for 28 Days Prov:LYNETTE SAINZ MD 03/07/17 Apixaban* (Eliquis*) 5 Mg Tablet, 5 MG PO BID for 28 Days, TAB Prov:LYNETTE SAINZ MD 03/07/17 [Lactulose] 20 GM/30 ML SOLN No Conflict Check, 30 GM PO BID for 28 Days Prov:LYNETTE SAINZ MD 03/07/17 Meclizine Hcl* (Antivert*) 12.5 Mg Tab, 25 MG PO Q6H Y for DIZZINESS, #20 TAB Prov:RYAN WEBB DO 02/09/17 Ondansetron (Ondansetron Odt) 4 Mg Tab.rapdis, 4 MG PO Q6H Y for NAUSEA AND/OR VOMITING, #10 TAB Prov:RYAN WEBB DO 02/09/17 Hydrocodone/Acetaminophen ([place] 10-325 Tablet) 1 Each Tablet, 1 TAB PO Q6H Y for PAIN, #20 TAB Prov:RYAN WEBB DO 02/09/17 Dicyclomine Hcl* (Bentyl*) 10 Mg Capsule, 20 MG PO QID, #30 CAP Prov:RYAN WEBB DO 02/09/17 Reported Medications Metformin* (Glucophage*) 500 Mg Tab, 500 MG PO BID, #90 TAB 02/09/17 Furosemide* (Furosemide*) 20 Mg Tablet, 20 MG PO DAILY, #60 TAB 02/09/17 Spironolactone* (Aldactone*) 50 Mg Tablet, 50 MG PO DAILY, #30 TAB 02/09/17 Mycophenolate Mofetil* (Cellcept*) 500 Mg Tablet, 500 MG PO TID, #60 TAB 12/10/16 Insulin Glargine* (Lantus*) 100 Unit/Ml Soln, 20 UNIT SC DAILY, #1 VIAL 12/10/16 Allergies Allergies: Coded Allergies: No Known Allergy (Unverified , 12/10/16) PMhx/Soc History of Surgery: Yes (2 c-sections, liver bx, appendectomy, carpal tunnel, paracenthesis ) Anesthesia Reaction: No Hx Neurological Disorder: No Hx Respiratory Disorders: Yes Hx Cardiac Disorders: No Hx Psychiatric Problems: No Hx Miscellaneous Medical Probl: No Hx Alcohol Use: No Hx Substance Use: No Hx Tobacco Use: No Smoking Status: Never smoker FmHx Family History: diabetes Physical Exam Vitals Vital Signs Date Time Temp Pulse Resp B/P Pulse Ox O2 Delivery O2 Flow Rate FiO2 04/02/17 20:36 98.6 92 24 114/73 98 Physical Exam Const: Moderate distress secondary to pain Head: Atraumatic Eyes: Normal Conjunctiva ENT: Normal External Ears, Nose and Mouth. Neck: Full range of motion..~ No meningismus. Resp: Clear to auscultation bilaterally Cardio: Regular rate and rhythm, no murmurs Abd: Soft, diffuse tenderness to palpation without rebound or guarding, positive fluid Skin: No petechiae or rashes Back: No midline or flank tenderness Ext: No cyanosis, or edema Neur: Awake and alert Psych: Normal Mood and Affect Result Diagram: 04/02/17204204/02/172042 Results 24 hrs Laboratory Tests Test 04/02/17 20:43 White Blood Count 5.510^3/ul Red Blood Count 3.2710^6/ul Hemoglobin 10.6g/dl Hematocrit 31.1% Mean Corpuscular Volume 95.1fl Mean Corpuscular Hemoglobin 32.4pg Mean Corpuscular Hemoglobin Concent 34.1g/dl Red Cell Distribution Width 15.9% Platelet Count 53976^3/UL Mean Platelet Volume 9.6fl Neutrophils % 55.8% Lymphocytes % 33.8% Monocytes % 8.0% Eosinophils % 1.1% Basophils % 1.1% Nucleated Red Blood Cells % 0.0/100WBC Neutrophils # 3.110^3/ul Lymphocytes # 1.910^3/ul Monocytes # 0.410^3/ul Eosinophils # 0.110^3/ul Basophils # 0.110^3/ul Nucleated Red Blood Cells # 0.010^3/ul Sodium Level 134mmol/L Potassium Level 3.9mmol/L Chloride Level 95mmol/L Carbon Dioxide Level 26mmol/L Anion Gap 17 Blood Urea Nitrogen 9mg/dl Creatinine 0.69mg/dl Glucose Level 226mg/dl Calcium Level 9.1mg/dl Total Bilirubin 0.9mg/dl Direct Bilirubin 0.00mg/dl Indirect Bilirubin 0.9mg/dl Aspartate Amino Transf (AST/SGOT) 77IU/L Alanine Aminotransferase (ALT/SGPT) 37IU/L Alkaline Phosphatase 218IU/L Ammonia < 9umol/l Troponin I < 0.012ng/ml Total Protein 6.4g/dl Albumin 3.0g/dl Globulin 3.40g/dl Albumin/Globulin Ratio 0.88 Lipase 94U/L Current Medications Medications (Trade) Dose Ordered Sig/Rohit Route PRN Reason Start Time Stop Time Status Last Admin Dose Admin Morphine Sulfate (morphine) 4 mg ONCE STAT IV 04/02/17 20:36 04/02/17 20:37 DC 04/02/17 21:07 Ondansetron HCl (Zofran Inj) 4 mg ONCE STAT IV 04/02/17 20:36 04/02/17 20:37 DC 04/02/17 21:07 Procedures/MDM Patient is a 61-year-old female presents with abdominal pain and ascites. The patient will need admission to her primary doctor Dr. Sainz. She likely has ascites and will need paracentesis as well. However at this point I doubt spontaneous bacterial peritonitis. The patient will need to be admitted to a medical surgical bed. Ammonia level was negative. Her prognosis is poor given her age and comorbidities. Departure Diagnosis: Primary Impression: Acute abdominal pain Additional Impressions: Anemia Qualified Code: D64.9 - Anemia, unspecified type Hyperglycemia Condition: Fair OSTICK,NERI MD Apr 02, 2017 22:58
[2017-04-02] MEDS ORDERED: GLUCOSE GEL 15 GRAM TUBE BUCCAL PRN (23:45)
[2017-04-02] MEDS ORDERED: GLUCAGON 1 MG INJ IM PRN (23:45)
[2017-04-02] MEDS ORDERED: DEXTROSE 50% 50 ML SYRINGE IV PRN ×2 (23:45)
[2017-04-02] MEDS ORDERED: GLUCOSE GEL 15 GRAM TUBE PO PRN ×2 (23:45)
[2017-04-03] MEDS ORDERED: MECLIZINE 12.5 MG TAB PO PRN
[2017-04-03] MEDS: SOD CHLORIDE 0.45% 1,000 ML IV SCH (00:21)
[2017-04-03 02:00] VITALS: BP 103/51; RESP 19
[2017-04-03] MEDS: HYDROCODONE/APAP (10/325) TAB PO PRN ×2 (02:18→23:14)
[2017-04-03] MEDS: ONDANSETRON 4 MG INJ IV PRN ×2 (04:59→09:24)
[2017-04-03 06:03] LABS: ADD SCAN DIFF NO
[2017-04-03 06:06] LABS: BASOPHIL # 0.1 10^3/ul (0.0-0.1); EOSINOPHILS # 0.1 10^3/ul (0.0-0.5); EOSINOPHILS % 1.5 % (0.0-7.0); HEMATOCRIT 29.5 % (37.0-47.0); HEMOGLOBIN 10.1 g/dl (12.0-16.0); LYMPHOCYTES # 2.5 10^3/ul (0.8-2.9); LYMPHOCYTES % 42.9 % (15.0-51.0); MEAN CORPUSCULAR HEMOGLOBIN 32.3 pg (29.0-33.0); MEAN CORPUSCULAR HGB CONC 34.2 g/dl (32.0-37.0); MEAN CORPUSCULAR VOLUME 94.2 fl (82.0-101.0); MEAN PLATELET VOLUME 9.1 fl (7.4-10.4); MONOCYTE # 0.5 10^3/ul (0.3-0.9); MONOCYTES % 8.8 % (0.0-11.0); NEUTROPHIL # 2.7 10^3/ul (1.6-7.5); NEUTROPHILS % 45.6 % (39.0-77.0); PLATELET COUNT 166 10^3/UL (140-415); RED BLOOD COUNT 3.13 10^6/ul (4.20-5.40); RED CELL DISTRIBUTION WIDTH 15.9 % (11.5-14.5); WHITE BLOOD COUNT 5.9 10^3/ul (4.8-10.8)
[2017-04-03] MEDS: CIPROFLOXACIN 500 MG TAB PO SCH ×2 (06:16→17:20)
[2017-04-03] MEDS: PANTOPRAZOLE (EC) 40 MG TAB PO SCH (06:16)
[2017-04-03] MEDS: FUROSEMIDE 20 MG TAB PO SCH (06:18)
[2017-04-03 06:49] LABS: ALBUMIN 2.8 g/dl (3.3-4.9); ALBUMIN/GLOBULIN RATIO 0.9; BILIRUBIN,INDIRECT 1.1 mg/dl (0-1.1); BILIRUBIN,TOTAL 1.1 mg/dl (0.2-1.3); CALCIUM 8.9 mg/dl (8.4-10.2); CREATININE 0.66 mg/dl (0.44-1.00); POTASSIUM 3.5 mmol/L (3.5-5.1); TOTAL PROTEIN 5.9 g/dl (6.1-8.1)
[2017-04-03] MEDS: metFORMIN 500 MG TAB PO SCH ×2 (08:00→17:20)
[2017-04-03 08:16] VITALS: BP 101/62; RESP 20
[2017-04-03] MEDS: INSULIN ASPART [NOVOLOG] 3 ML PEN SC SCH ×4 (08:31→20:50)
[2017-04-03] MEDS: LACTULOSE 30ML CUP PO SCH ×2 (09:00→20:40)
[2017-04-03] MEDS: DICYCLOMINE 10 MG CAP PO SCH ×4 (09:00→20:40)
[2017-04-03] MEDS: APIXABAN 5 MG TABLET PO SCH ×2 (09:00→20:40)
[2017-04-03] MEDS ORDERED: INSULIN GLARGINE [LANtus] 3 ML PEN SC SCH (09:00)
[2017-04-03] MEDS: MYCOPHENOLATE 250 MG CAP PO SCH ×3 (09:00→20:40)
[2017-04-03] MEDS: SPIRONOLACTONE 50 MG TAB PO SCH (09:00)
--- NOTE | 2017-04-03 11:14 | HP ---
Date/Time of Note Date/Time of Note DATE: 04/03/17 TIME: 11:11 Assessment/Plan VTE Prophylaxis VTE Prophylaxis Intervention: SCD's Lines/Catheters IV Catheter Type (from Nrs): Peripheral IV Assessment/Plan Chief Complaint/Hosp Course 1. Liver cirrhosis with abdominal pain 2. Autoimmune hepatitis, 3. ascites, 4. Status post paracentesis, 5. Diabetes mellitus type II. 6. Pruritus Problems: Assessment/Plan 1. Paracentesis Wednesday 2. Pain control and nausea control 3. continue IV fluids HPI/ROS Admit Date/Time Admit Date/Time Apr 02, 2017 at 21:12 Hx of Present Illness 61 yo female presented with intractable with abdominal pain. She was brought in by ambulance, accompanied by relatives. She had vomiting and abdominal pain all day and describes it as an 8 out of 10. She was transferred from a nursing facility. She had her paracentesis previously and her last paracentesis was 2 weeks ago. The ascites is now worse. She has not eaten for the past 2 days.She was recently discharged from this hospital with diagnosis of liver cirrhosis, she also had deep venous thrombosis of lower extremity. The patient noted to have autoimmune hepatitis, cirrhosis of the liver, ascites, status post paracentesis, history of diabetes mellitus. The patient was recently discharged from the [facility], She was seen in [facility] with similar problems. Also, patient presented in [facility] previously and noted to have electrolyte imbalance. ROS Constitutional: disoriented, fatigue, nausea, poor po Respiratory: cough, pain, No no complaints, No other, No pleuritic pain, No shortness of breath, No sputum, No wheezing Cardiovascular: chest pain, edema, No lightheadedness, No no complaints, No orthopenea, No other, No palpitations, No paroxysmal nocturnal dyspnea Gastrointestinal: constipation, decreased appetite, nausea, pain, vomiting Genitourinary: bleeding, dysuria, No discharge, No flank pain, No hematuria, No no complaints, No other Endocrine: polydypsia, polyuria, No dry skin, No no complaints, No other, No temp intolerance, No weight change Psychological: anxiety, No confusion, No depression, No nl mood/affect, No no complaints, No other, No suicidal PMH/Family/Social Past Medical History Medical History: congestive heart failure, deep vein thrombosis, hypertension, renal disease Past Surgical History Past Surgical Hx: other (paracentesis) Family History Significant Family History: hypertension Social History Alcohol Use: none Smoking Status: Never smoker Drug Use: none Exam/Review of Systems Vital Signs Vitals Vital Signs Date Time Temp Pulse Resp B/P Pulse Ox O2 Delivery O2 Flow Rate FiO2 04/03/17 08:16 97.9 88 20 101/62 95 04/02/17 22:01 Room Air Intake and Output 04/02/17 04/02/17 04/03/17 15:00 23:00 07:00 Intake Total 250 ml Balance 250 ml Exam Constitutional: alert, oriented (name) Head: atraumatic, normocephalic Eyes: nl conjunctiva ENMT: nl external ears & nose Neck: non-tender, supple Respiratory: clear to auscultation Cardiovascular: regular rate and rhythm Gastrointestinal: ascites, distended, rebound or guarding, surgical scars Genitourinary - Female: nl external genitalia Extremities: normal pulses Neurological: confused Labs Result Diagram: 04/03/17 0532 04/03/17 0532 Medications Medications Current Medications Apixaban (Eliquis) 5 mg BID PO ; Start 04/03/17 at 09:00 Ciprofloxacin (Cipro) 500 mg BID@06,18 PO Last administered on 04/03/17 06:16; Admin Dose 500 MG; Start 04/03/17 at 06:00 Dicyclomine HCl (Bentyl) 20 mg QID PO ; Start 04/03/17 at 09:00 Furosemide (Lasix) 20 mg DAILY@06 PO Last administered on 04/03/17 06:18; Admin Dose 20 MG; Start 04/03/17 at 06:00 Acetaminophen/ Hydrocodone Bitart ([place] (10/325)) 1 tab Q6H PRN PO PAIN Last administered on 04/03/17 02:18; Admin Dose 1 TAB; Start 04/03/17 at 00:00 Meclizine HCl (Antivert) 25 mg Q6H PRN PO DIZZINESS; Start 04/03/17 at 00:00 Mycophenolate Mofetil (Cellcept) 500 mg TID PO ; Start 04/03/17 at 09:00 Spironolactone (Aldactone) 50 mg DAILY PO ; Start 04/03/17 at 09:00 Miscellaneous Information 1 ea NOTE XX ; Start 04/02/17 at 23:45 Glucose (Glutose) 15 gm Q15M PRN PO DECREASED GLUCOSE; Start 04/02/17 at 23:45 Glucose (Glutose) 22.5 gm Q15M PRN PO DECREASED GLUCOSE; Start 04/02/17 at 23:45 Dextrose (D50w Syringe) 25 ml Q15M PRN IV DECREASED GLUCOSE; Start 04/02/17 at 23:45 Dextrose (D50w Syringe) 50 ml Q15M PRN IV DECREASED GLUCOSE; Start 04/02/17 at 23:45 Glucagon (Glucagen) 1 mg Q15M PRN IM DECREASED GLUCOSE; Start 04/02/17 at 23:45 Glucose (Glutose) 15 gm Q15M PRN BUCCAL DECREASED GLUCOSE; Start 04/02/17 at 23: 45 Insulin Glargine (Lantus) 20 unit DAILY SC ; Start 04/03/17 at 21:00 Diagnostic Test (Pha) (Accu-Chek) 1 ea 02 XX ; Start 04/04/17 at 02:00 Lactulose (Enulose) 20 gm BID PO ; Start 04/03/17 at 09:00 Ondansetron HCl 4 mg 4 mg Q4H PRN IV NAUSEA AND/OR VOMITING Last administered on 04/03/17 09:24; Admin Dose 4 MG; Start 04/03/17 at 00:00 Sodium Chloride (1/2 NS) 1,000 ml @ 30 mls/hr Q24H IV Last administered on 04/03 00:21; Admin Dose 30 MLS/HR; Start 04/03/17 at 00:00 Pantoprazole (Protonix Tab) 40 mg DAILY@06 PO Last administered on 04/03/17 06: 16; Admin Dose 40 MG; Start 04/03/17 at 06:00 Promethazine HCl (Phenadoz) 25 mg Q6H PRN [place] nausea; Start 04/03/17 at 11:30; Status FABI BEAR Apr 03, 2017 11:14
[2017-04-03] MEDS ORDERED: PROMETHAZINE 25 MG SUPP PR PRN (11:30)
[2017-04-03 14:00] VITALS: BP 99/64; RESP 19
[2017-04-03] MEDS: INSULIN GLARGINE [LANtus] 3 ML PEN SC SCH (20:49)
[2017-04-03 21:30] VITALS: BP 95/58; RESP 20
[2017-04-04] MEDS: ACCU-CHEK XX SCH (01:50)
[2017-04-04 02:00] VITALS: BP 104/72; RESP 19
[2017-04-04 05:21] LABS: ADD SCAN DIFF NO
[2017-04-04 05:30] LABS: BASOPHIL # 0.1 10^3/ul (0.0-0.1); BASOPHILS % 0.9 % (0.0-2.0); EOSINOPHILS # 0.1 10^3/ul (0.0-0.5); EOSINOPHILS % 1.6 % (0.0-7.0); HEMATOCRIT 26.8 % (37.0-47.0); HEMOGLOBIN 9.1 g/dl (12.0-16.0); LYMPHOCYTES # 2.2 10^3/ul (0.8-2.9); LYMPHOCYTES % 39.1 % (15.0-51.0); MEAN CORPUSCULAR HEMOGLOBIN 32.3 pg (29.0-33.0); MEAN PLATELET VOLUME 9.7 fl (7.4-10.4); MONOCYTE # 0.6 10^3/ul (0.3-0.9); MONOCYTES % 9.9 % (0.0-11.0); NEUTROPHIL # 2.7 10^3/ul (1.6-7.5); NEUTROPHILS % 48.3 % (39.0-77.0); PLATELET COUNT 164 10^3/UL (140-415); RED BLOOD COUNT 2.82 10^6/ul (4.20-5.40); RED CELL DISTRIBUTION WIDTH 16.5 % (11.5-14.5); WHITE BLOOD COUNT 5.6 10^3/ul (4.8-10.8)
[2017-04-04] MEDS: PANTOPRAZOLE (EC) 40 MG TAB PO SCH (05:35)
[2017-04-04] MEDS: SOD CHLORIDE 0.45% 1,000 ML IV SCH (05:37)
[2017-04-04] MEDS: FUROSEMIDE 20 MG TAB PO SCH (05:41)
[2017-04-04 05:44] LABS: INR 1.51; PROTIME 18.3 Sec (12.2-14.2); PT RATIO 1.4
[2017-04-04 05:45] LABS: PARTIAL THROMBOPLASTIN TIME 35.9 Sec (25.0-35.0)
[2017-04-04 06:11] LABS: CALCIUM 8.7 mg/dl (8.4-10.2); CREATININE 0.74 mg/dl (0.44-1.00); POTASSIUM 3.5 mmol/L (3.5-5.1)
[2017-04-04] MEDS: INSULIN ASPART [NOVOLOG] 3 ML PEN SC SCH ×4 (08:00→20:05)
[2017-04-04] MEDS: metFORMIN 500 MG TAB PO SCH ×2 (08:00→17:32)
[2017-04-04 08:07] VITALS: BP 94/54; RESP 17
[2017-04-04] MEDS: SPIRONOLACTONE 50 MG TAB PO SCH (08:14)
[2017-04-04] MEDS: DICYCLOMINE 10 MG CAP PO SCH ×4 (08:16→20:05)
[2017-04-04] MEDS: LACTULOSE 30ML CUP PO SCH ×2 (08:16→20:05)
[2017-04-04] MEDS: APIXABAN 5 MG TABLET PO SCH ×2 (08:16→19:33)
[2017-04-04] MEDS: MYCOPHENOLATE 250 MG CAP PO SCH ×3 (08:16→20:05)
[2017-04-04] MEDS: INSULIN GLARGINE [LANtus] 3 ML PEN SC SCH (08:18)
--- NOTE | 2017-04-04 15:03 | PN ---
Date/Time of Note Date/Time of Note DATE: 04/04/17 TIME: 15:01 Assessment/Plan VTE Prophylaxis VTE Prophylaxis Intervention: other Lines/Catheters IV Catheter Type (from Nrsg): Peripheral IV Assessment/Plan Chief Complaint/Hosp Course ABD PAIN CIRRHOSIS ASCITES ANEMIA DM PLAN PARACENTESIS Problems: Subjective 24 Hr Interval Summary Gastrointestinal: pain (+) Genitourinary: no complaints Exam/Review of Systems Vital Signs Vitals Vital Signs Date Time Temp Pulse Resp B/P Pulse Ox O2 Delivery O2 Flow Rate FiO2 04/04/17 08:07 97.6 88 17 94/54 94 04/02/17 22:01 Room Air Intake and Output 04/03/17 04/03/17 04/04/17 15:00 23:00 07:00 Intake Total 780 ml 735 ml Balance 780 ml 735 ml Exam Neck: supple Respiratory: diminished breath sounds Cardiovascular: regular rate and rhythm Gastrointestinal: ascites (+), soft Results Result Diagram: 04/04/17 0430 04/04/17 0430 Results 24 hrs Laboratory Tests Test 04/03/17 17:18 04/03/17 20:39 04/04/17 01:46 04/04/17 04:30 Bedside Glucose 170 187 136 White Blood Count 5.6 Red Blood Count 2.82 L Hemoglobin 9.1 L Hematocrit 26.8 L Mean Corpuscular Volume 95.0 Mean Corpuscular Hemoglobin 32.3 Mean Corpuscular Hemoglobin Concent 34.0 Red Cell Distribution Width 16.5 H Platelet Count 164 Mean Platelet Volume 9.7 Neutrophils % 48.3 Lymphocytes % 39.1 Monocytes % 9.9 Eosinophils % 1.6 Basophils % 0.9 Nucleated Red Blood Cells % 0.0 Neutrophils # 2.7 Lymphocytes # 2.2 Monocytes # 0.6 Eosinophils # 0.1 Basophils # 0.1 Nucleated Red Blood Cells # 0.0 Prothrombin Time 18.3 H Prothrombin Time Ratio 1.4 INR International Normalized Ratio 1.51 Activated Partial Thromboplast Time 35.9 H Sodium Level 135 Potassium Level 3.5 Chloride Level 97 Carbon Dioxide Level 28 Anion Gap 14 Blood Urea Nitrogen 8 Creatinine 0.74 Glucose Level 92 # Calcium Level 8.7 Ammonia 14 Test 04/04/17 08:14 04/04/17 11:32 Bedside Glucose 90 80 Medications Medications Current Medications Apixaban (Eliquis) 5 mg BID PO Last administered on 04/03/17 20:40; Admin Dose 5 MG; Start 04/03/17 at 09:00 Dicyclomine HCl (Bentyl) 20 mg QID PO Last administered on 04/04/17 12:29; Admin Dose 20 MG; Start 04/03/17 at 09:00 Furosemide (Lasix) 20 mg DAILY@06 PO Last administered on 04/04/17 05:41; Admin Dose 20 MG; Start 04/03/17 at 06:00 Acetaminophen/ Hydrocodone Bitart ([place] (10/325)) 1 tab Q6H PRN PO PAIN Last administered on 04/03/17 23:14; Admin Dose 1 TAB; Start 04/03/17 at 00:00 Meclizine HCl (Antivert) 25 mg Q6H PRN PO DIZZINESS; Start 04/03/17 at 00:00 Mycophenolate Mofetil (Cellcept) 500 mg TID PO Last administered on 04/04/17 12 :29; Admin Dose 500 MG; Start 04/03/17 at 09:00 Spironolactone (Aldactone) 50 mg DAILY PO ; Start 04/03/17 at 09:00 Miscellaneous Information 1 ea NOTE XX ; Start 04/02/17 at 23:45 Glucose (Glutose) 15 gm Q15M PRN PO DECREASED GLUCOSE; Start 04/02/17 at 23:45 Glucose (Glutose) 22.5 gm Q15M PRN PO DECREASED GLUCOSE; Start 04/02/17 at 23:45 Dextrose (D50w Syringe) 25 ml Q15M PRN IV DECREASED GLUCOSE; Start 04/02/17 at 23:45 Dextrose (D50w Syringe) 50 ml Q15M PRN IV DECREASED GLUCOSE; Start 04/02/17 at 23:45 Glucagon (Glucagen) 1 mg Q15M PRN IM DECREASED GLUCOSE; Start 04/02/17 at 23:45 Glucose (Glutose) 15 gm Q15M PRN BUCCAL DECREASED GLUCOSE; Start 04/02/17 at 23: 45 Insulin Glargine (Lantus) 20 unit DAILY SC Last administered on 04/04/17 08:18 ; Admin Dose 20 UNIT; Start 04/03/17 at 21:00 Diagnostic Test (Pha) (Accu-Chek) 1 ea 02 XX ; Start 04/04/17 at 02:00 Lactulose (Enulose) 20 gm BID PO Last administered on 04/04/17 08:16; Admin Dose 20 GM; Start 04/03/17 at 09:00 Ondansetron HCl 4 mg 4 mg Q4H PRN IV NAUSEA AND/OR VOMITING Last administered on 04/03/17 09:24; Admin Dose 4 MG; Start 04/03/17 at 00:00 Sodium Chloride (1/2 NS) 1,000 ml @ 30 mls/hr Q24H IV Last administered on 04/04 05:37; Admin Dose 30 MLS/HR; Start 04/03/17 at 00:00 Pantoprazole (Protonix Tab) 40 mg DAILY@06 PO Last administered on 04/04/17 05: 35; Admin Dose 40 MG; Start 04/03/17 at 06:00 Promethazine HCl (Phenadoz) 25 mg Q6H PRN [place] nausea; Start 04/03/17 at 11:30 LYNETTE SAINZ MD Apr 04, 2017 15:03
[2017-04-04 15:18] VITALS: BP 97/58; RESP 17
[2017-04-04 20:00] VITALS: BP 92/54; RESP 18
[2017-04-05] VITALS (7 sets, daily range): BP systolic 85–98; BP diastolic 50–60; PULSE 80–86; RESP 16–18
[2017-04-05] MEDS: ACCU-CHEK XX SCH (01:44)
[2017-04-05] MEDS: FUROSEMIDE 20 MG TAB PO SCH (06:00)
[2017-04-05] MEDS: PANTOPRAZOLE (EC) 40 MG TAB PO SCH (06:31)
[2017-04-05] MEDS: INSULIN ASPART [NOVOLOG] 3 ML PEN SC SCH ×4 (08:00→20:13)
[2017-04-05] MEDS: metFORMIN 500 MG TAB PO SCH ×2 (08:00→18:08)
[2017-04-05] MEDS: INSULIN GLARGINE [LANtus] 3 ML PEN SC SCH (09:00)
[2017-04-05] MEDS: APIXABAN 5 MG TABLET PO SCH ×2 (09:00→20:16)
[2017-04-05] MEDS: SPIRONOLACTONE 50 MG TAB PO SCH (09:00)
[2017-04-05] MEDS: DICYCLOMINE 10 MG CAP PO SCH ×4 (10:02→22:06)
[2017-04-05] MEDS: LACTULOSE 30ML CUP PO SCH ×2 (10:02→20:09)
[2017-04-05] MEDS: MYCOPHENOLATE 250 MG CAP PO SCH ×3 (10:02→20:16)
[2017-04-05] MEDS: MIDODRINE 5 MG TAB PO SCH (10:03)
[2017-04-05] MEDS ORDERED: LIDOCAINE 1% (MPF) 5 ML VIAL ONE (12:12)
--- NOTE | 2017-04-05 12:58 | RADRPT ---
PROCEDURE: Ultrasound guided paracentesis. CLINICAL INDICATION: Ascites and shortness of breath. COMPARISON: 03/19/2017. TECHNIQUE: The risks, benefits, and alternatives were explained to the patient and/or the patient's family, inc luding but not limited to bleeding, infection, pain, visceral or vascular damage, shock, and . The patient and/or the patient's family understood the risks and the alternatives and wished to pro ceed with the procedure. Informed written consent was obtained. A procedural time out was performed . The patient's name, date of , and procedure to be performed were verified. Utilizing ultrasound guidance, optimal location for entry to the peritoneal cavity was ascertained. The overlying skin was prepped and draped in the usual sterile fashion. Approximately 10 ml of 1% Xylocaine was injected locally for pain control. Using ultrasound guidance, an 8 [place] catheter wa s introduced into the peritoneal cavity in the right lower quadrant without difficulty. FINDINGS: Initial images demonstrate ascites. Approximately 4.8 liters of serous fluid was aspirated and disc arded. The patient tolerated the procedure well without complication. IMPRESSION: 1. Successful ultrasound-guided paracentesis. RPTAT: QQ .Robbie Geller MD, Date Time Electronically viewed and signed by .Robbie Geller MD, on 04/05/2017 12:58 .R/
[2017-04-05] MEDS: HYDROCODONE/APAP (10/325) TAB PO PRN (13:39)
--- NOTE | 2017-04-05 20:54 | PN ---
Date/Time of Note Date/Time of Note DATE: 04/05/17 TIME: 20:53 Assessment/Plan VTE Prophylaxis VTE Prophylaxis Intervention: other Lines/Catheters IV Catheter Type (from Nrsg): Peripheral IV Assessment/Plan Chief Complaint/Hosp Course ABD PAIN CIRRHOSIS ASCITES ANEMIA DM PLAN PARACENTESIS snf am Problems: Subjective 24 Hr Interval Summary Subjective hx not possible: other (s/p paracentesis) Exam/Review of Systems Vital Signs Vitals Vital Signs Date Time Temp Pulse Resp B/P Pulse Ox O2 Delivery O2 Flow Rate FiO2 04/05/17 14:30 98.0 80 16 85/50 95 04/05/17 08:05 Room Air Intake and Output 04/04/17 04/04/17 04/05/17 15:00 23:00 07:00 Intake Total 1680 ml 600 ml Balance 1680 ml 600 ml Exam Neck: supple Respiratory: clear to auscultation Cardiovascular: regular rate and rhythm Gastrointestinal: ascites (+), soft Results Result Diagram: 04/04/17 0430 04/04/17 0430 Results 24 hrs Laboratory Tests Test 04/05/17 08:03 04/05/17 11:12 04/05/17 17:23 04/05/17 20:13 Bedside Glucose 78 87 118 100 Medications Medications Current Medications Apixaban (Eliquis) 5 mg BID PO Last administered on 04/05/17 20:16; Admin Dose 5 MG; Start 04/03/17 at 09:00 Dicyclomine HCl (Bentyl) 20 mg QID PO Last administered on 04/05/17 18:11; Admin Dose 20 MG; Start 04/03/17 at 09:00 Furosemide (Lasix) 20 mg DAILY@06 PO Last administered on 04/04/17 05:41; Admin Dose 20 MG; Start 04/03/17 at 06:00 Acetaminophen/ Hydrocodone Bitart ([place] (10/325)) 1 tab Q6H PRN PO PAIN Last administered on 04/05/17 13:39; Admin Dose 1 TAB; Start 04/03/17 at 00:00 Meclizine HCl (Antivert) 25 mg Q6H PRN PO DIZZINESS; Start 04/03/17 at 00:00 Mycophenolate Mofetil (Cellcept) 500 mg TID PO Last administered on 04/05/17 20:16; Admin Dose 500 MG; Start 04/03/17 at 09:00 Spironolactone (Aldactone) 50 mg DAILY PO ; Start 04/03/17 at 09:00 Miscellaneous Information 1 ea NOTE XX ; Start 04/02/17 at 23:45 Glucose (Glutose) 15 gm Q15M PRN PO DECREASED GLUCOSE; Start 04/02/17 at 23:45 Glucose (Glutose) 22.5 gm Q15M PRN PO DECREASED GLUCOSE; Start 04/02/17 at 23:45 Dextrose (D50w Syringe) 25 ml Q15M PRN IV DECREASED GLUCOSE; Start 04/02/17 at 23:45 Dextrose (D50w Syringe) 50 ml Q15M PRN IV DECREASED GLUCOSE; Start 04/02/17 at 23:45 Glucagon (Glucagen) 1 mg Q15M PRN IM DECREASED GLUCOSE; Start 04/02/17 at 23:45 Glucose (Glutose) 15 gm Q15M PRN BUCCAL DECREASED GLUCOSE; Start 04/02/17 at 23: 45 Insulin Glargine (Lantus) 20 unit DAILY SC Last administered on 04/04/17 08:18 ; Admin Dose 20 UNIT; Start 04/03/17 at 21:00 Diagnostic Test (Pha) (Accu-Chek) 1 ea 02 XX ; Start 04/04/17 at 02:00 Lactulose (Enulose) 20 gm BID PO Last administered on 04/05/17 10:02; Admin Dose 20 GM; Start 04/03/17 at 09:00 Ondansetron HCl 4 mg 4 mg Q4H PRN IV NAUSEA AND/OR VOMITING Last administered on 04/03/17 09:24; Admin Dose 4 MG; Start 04/03/17 at 00:00 Sodium Chloride (1/2 NS) 1,000 ml @ 30 mls/hr Q24H IV Last administered on 04/04 05:37; Admin Dose 30 MLS/HR; Start 04/03/17 at 00:00 Pantoprazole (Protonix Tab) 40 mg DAILY@06 PO Last administered on 04/05/17 06 :31; Admin Dose 40 MG; Start 04/03/17 at 06:00 Promethazine HCl (Phenadoz) [address] nausea; Start 04/03/17 at 11:30 Midodrine (Proamatine) 5 mg DAILY PO Last administered on 04/05/17t 10:03; Admin Dose 5 MG; Start 04/05/17 at 09:00 LYNETTE SAINZ MD Apr 05, 2017 20:54
[2017-04-05] MEDS: SOD CHLORIDE 0.45% 1,000 ML IV SCH ×2 (23:15)
[2017-04-06] MEDS: ACCU-CHEK XX SCH (01:59)
[2017-04-06 02:43] VITALS: BP 93/51; RESP 20
[2017-04-06 03:11] VITALS: PULSE 60
[2017-04-06] MEDS: FUROSEMIDE 20 MG TAB PO SCH (05:10)
[2017-04-06] MEDS: PANTOPRAZOLE (EC) 40 MG TAB PO SCH (05:10)
[2017-04-06] MEDS: INSULIN ASPART [NOVOLOG] 3 ML PEN SC SCH ×4 (08:00→20:28)
[2017-04-06] MEDS: metFORMIN 500 MG TAB PO SCH ×3 (08:00→17:19)
[2017-04-06] MEDS: INSULIN GLARGINE [LANtus] 3 ML PEN SC SCH (08:12)
[2017-04-06 08:22] VITALS: BP 82/52; RESP 18
[2017-04-06] MEDS: LACTULOSE 30ML CUP PO SCH ×3 (09:00→20:40)
[2017-04-06] MEDS: SPIRONOLACTONE 50 MG TAB PO SCH ×2 (09:00→09:13)
[2017-04-06] MEDS: DICYCLOMINE 10 MG CAP PO SCH ×4 (09:11→20:36)
[2017-04-06] MEDS: MYCOPHENOLATE 250 MG CAP PO SCH ×3 (09:12→20:35)
[2017-04-06] MEDS: MIDODRINE 5 MG TAB PO SCH (09:13)
[2017-04-06] MEDS: APIXABAN 5 MG TABLET PO SCH ×2 (09:13→20:36)
[2017-04-06] MEDS: ONDANSETRON 4 MG INJ IV PRN (09:44)
[2017-04-06 09:53] VITALS: BP 90/60; PULSE 98
[2017-04-06 15:47] VITALS: BP 90/57; RESP 18
--- NOTE | 2017-04-06 18:24 | PDOCDIS ---
Discharge Instructions CONDITION Patient Condition: Stable HOME CARE INSTRUCTIONS: Special Diet: clear liquid FOLLOW UP/APPOINTMENTS Follow-up Plan f/u pcp at [facility] see gi at [facility] LYNETTE SAINZ MD Apr 06, 2017 18:23
[2017-04-06 20:19] VITALS: BP 106/71; RESP 19
--- NOTE | 2017-04-06 20:24 | PN ---
Date/Time of Note Date/Time of Note DATE: 04/06/17 TIME: 20:23 Assessment/Plan VTE Prophylaxis VTE Prophylaxis Intervention: other Lines/Catheters IV Catheter Type (from Nrsg): Peripheral IV Assessment/Plan Chief Complaint/Hosp Course ABD PAIN CIRRHOSIS ASCITES ANEMIA DM PLAN PARACENTESIS snf Problems: Subjective 24 Hr Interval Summary Respiratory: no complaints Cardiovascular: no complaints Gastrointestinal: no complaints Exam/Review of Systems Vital Signs Vitals Vital Signs Date Time Temp Pulse Resp B/P Pulse Ox O2 Delivery O2 Flow Rate FiO2 04/06/17 20:19 98.2 97 19 106/71 96 04/05/17 08:05 Room Air Intake and Output 04/05/17 04/05/17 04/06/17 15:00 23:00 07:00 Intake Total 600 ml 480 ml Balance 600 ml 480 ml Exam Neck: supple Respiratory: clear to auscultation Cardiovascular: regular rate and rhythm Gastrointestinal: soft Musculoskeletal: nl extremities to inspection Results Result Diagram: 04/04/17 0430 04/04/17 0430 Results 24 hrs Laboratory Tests Test 04/06/17 08:06 04/06/17 11:49 04/06/17 17:13 Bedside Glucose 81 83 79 Medications Medications Current Medications Apixaban (Eliquis) 5 mg BID PO Last administered on 04/06/17 09:13; Admin Dose 5 MG; Start 04/03/17 at 09:00 Dicyclomine HCl (Bentyl) 20 mg QID PO Last administered on 04/06/17 17:34; Admin Dose 20 MG; Start 04/03/17 at 09:00 Furosemide (Lasix) 20 mg DAILY@06 PO Last administered on 04/04/17 05:41; Admin Dose 20 MG; Start 04/03/17 at 06:00 Acetaminophen/ Hydrocodone Bitart ([place] (10/325)) 1 tab Q6H PRN PO PAIN Last administered on 04/05/17 13:39; Admin Dose 1 TAB; Start 04/03/17 at 00:00 Meclizine HCl (Antivert) 25 mg Q6H PRN PO DIZZINESS; Start 04/03/17 at 00:00 Mycophenolate Mofetil (Cellcept) 500 mg TID PO Last administered on 04/06/17 13:44; Admin Dose 500 MG; Start 04/03/17 at 09:00 Spironolactone (Aldactone) 50 mg DAILY PO ; Start 04/03/17 at 09:00 Miscellaneous Information 1 ea NOTE XX ; Start 04/02/17 at 23:45 Glucose (Glutose) 15 gm Q15M PRN PO DECREASED GLUCOSE; Start 04/02/17 at 23:45 Glucose (Glutose) 22.5 gm Q15M PRN PO DECREASED GLUCOSE; Start 04/02/17 at 23:45 Dextrose (D50w Syringe) 25 ml Q15M PRN IV DECREASED GLUCOSE; Start 04/02/17 at 23:45 Dextrose (D50w Syringe) 50 ml Q15M PRN IV DECREASED GLUCOSE; Start 04/02/17 at 23:45 Glucagon (Glucagen) 1 mg Q15M PRN IM DECREASED GLUCOSE; Start 04/02/17 at 23:45 Glucose (Glutose) 15 gm Q15M PRN BUCCAL DECREASED GLUCOSE; Start 04/02/17 at 23: 45 Insulin Glargine (Lantus) 20 unit DAILY SC Last administered on 04/06/17 08:12 ; Admin Dose 20 UNIT; Start 04/03/17 at 21:00 Diagnostic Test (Pha) (Accu-Chek) 1 ea 02 XX ; Start 04/04/17 at 02:00 Lactulose (Enulose) 20 gm BID PO Last administered on 04/05/17 10:02; Admin Dose 20 GM; Start 04/03/17 at 09:00 Ondansetron HCl 4 mg 4 mg Q4H PRN IV NAUSEA AND/OR VOMITING Last administered on 04/06/17 09:44; Admin Dose 4 MG; Start 04/03/17 at 00:00 Sodium Chloride (1/2 NS) 1,000 ml @ 30 mls/hr Q24H IV Last administered on 04/04 05:37; Admin Dose 30 MLS/HR; Start 04/03/17 at 00:00 Pantoprazole (Protonix Tab) 40 mg DAILY@06 PO Last administered on 04/06/17 05 :10; Admin Dose 40 MG; Start 04/03/17 at 06:00 Promethazine HCl (Phenadoz) 25 mg Q6H PRN [place] nausea; Start 04/03/17 at 11:30 Midodrine (Proamatine) 5 mg DAILY PO Last administered on 04/06/17 09:13; Admin Dose 5 MG; Start 04/05/17 at 09:00 LYNETTE SAINZ MD Apr 06, 2017 20:24
== END 2017-04-06 21:45 | DRG 948 ==
LOC: E/R 20:32 → PP2 21:12
PROVIDERS: ADMIT Internal Medicine Nephrology; ATTEND Internal Medicine Nephrology
PROC: 0W9G3ZZ Drainage of Peritoneal Cavity, Percutaneous Approach (ICD-10-PCS; principal; 2017-04-05)
DX: R18.8 Other ascites (principal); E11.22 Type 2 diabetes mellitus with diabetic chronic kidney disease; K74.60 Unspecified cirrhosis of liver; D64.9 Anemia, unspecified; K75.4 Autoimmune hepatitis; L29.9 Pruritus, unspecified; N18.9 Chronic kidney disease, unspecified
CPT/HCPCS: 36415; 80048; 80053; 82140; 82962; 83690; 84484; 85025; 85610; 85730; 87081; 93005; 96374; 96375; J1815; J2270; J2405; J7517

== ENCOUNTER 2017-04-13 03:41 | Inpatient (IN) | payer OTHER ==
[~2017-04-13] VITALS: Ht 157.5 cm; Wt 66.0 kg
[2017-04-13 07:55] VITALS: BP 100/58; RESP 19
[2017-04-13 07:56] VITALS: BP 100/58; PULSE 85; RESP 19
[2017-04-13] MEDS ORDERED: ONDANSETRON 4 MG INJ IV PRN (08:00)
[2017-04-13] MEDS: PANTOPRAZOLE 40 MG INJ IV SCH (08:22)
[2017-04-13] MEDS ORDERED: CEFTRIAXONE 1 GM INJ IM SCH (09:00)
[2017-04-13] MEDS: DEXTROSE 5%-0.45% NACL 1,000 ML IV SCH (09:57)
[2017-04-13 10:06] LABS: ADD SCAN DIFF NO
[2017-04-13 10:11] LABS: BASOPHIL # 0.1 10^3/ul (0.0-0.1); BASOPHILS % 0.8 % (0.0-2.0); EOSINOPHILS # 0.1 10^3/ul (0.0-0.5); EOSINOPHILS % 2.2 % (0.0-7.0); HEMATOCRIT 32.8 % (37.0-47.0); LYMPHOCYTES # 1.8 10^3/ul (0.8-2.9); LYMPHOCYTES % 29.7 % (15.0-51.0); MEAN CORPUSCULAR HEMOGLOBIN 32.6 pg (29.0-33.0); MEAN CORPUSCULAR HGB CONC 33.5 g/dl (32.0-37.0); MEAN CORPUSCULAR VOLUME 97.3 fl (82.0-101.0); MEAN PLATELET VOLUME 9.3 fl (7.4-10.4); MONOCYTE # 0.5 10^3/ul (0.3-0.9); MONOCYTES % 7.6 % (0.0-11.0); NEUTROPHIL # 3.5 10^3/ul (1.6-7.5); NEUTROPHILS % 59.5 % (39.0-77.0); PLATELET COUNT 178 10^3/UL (140-415); RED BLOOD COUNT 3.37 10^6/ul (4.20-5.40); RED CELL DISTRIBUTION WIDTH 16.8 % (11.5-14.5)
[2017-04-13 10:32] LABS: ALBUMIN 2.3 g/dl (3.3-4.9); ALBUMIN/GLOBULIN RATIO 0.69; BILIRUBIN,INDIRECT 0.7 mg/dl (0-1.1); BILIRUBIN,TOTAL 0.7 mg/dl (0.2-1.3); CALCIUM 8.9 mg/dl (8.4-10.2); CREATININE 1.13 mg/dl (0.44-1.00); POTASSIUM 3.8 mmol/L (3.5-5.1); TOTAL PROTEIN 5.6 g/dl (6.1-8.1)
[2017-04-13 10:50] VITALS: Ht 157.5 cm; Wt 66.0 kg
[2017-04-13 14:00] VITALS: BP 95/52; RESP 16
[2017-04-13] MEDS ORDERED: ONDANSETRON (ODT) 4 MG TAB ODT PRN (16:00)
[2017-04-13] MEDS ORDERED: MECLIZINE 12.5 MG TAB PO PRN (16:00)
[2017-04-13] MEDS ORDERED: GLUCAGON 1 MG INJ IM PRN (16:30)
[2017-04-13] MEDS ORDERED: GLUCOSE GEL 15 GRAM TUBE BUCCAL PRN (16:30)
[2017-04-13] MEDS ORDERED: GLUCOSE GEL 15 GRAM TUBE PO PRN ×2 (16:30)
[2017-04-13] MEDS ORDERED: DEXTROSE 50% 50 ML SYRINGE IV PRN ×2 (16:30)
[2017-04-13] MEDS: DICYCLOMINE 10 MG CAP PO SCH ×2 (17:35→20:53)
[2017-04-13] MEDS: INSULIN ASPART [NOVOLOG] 3 ML PEN SC SCH ×2 (17:35→20:57)
--- NOTE | 2017-04-13 18:52 | CONS ---
Date/Time of Note Date/Time of Note DATE: 04/13/17 TIME: 18:49 Assessment/Plan Assessment/Plan Additional Assessment/Plan 1. Hepatic encephalopathy 2. 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 Ascites 5. Diabetes mellitus 5. DVT. Plan Continue Reglan and PPI Lactulose and rifaximin Consultation Date/Type/Reason Admit Date/Time Apr 13, 2017 at 06:37 Hx of Present Illness 61-year-old female with a history of autoimmune hepatitis cirrhosis of liver on immunosuppressive medication was originally taken to the emergency room at [facility] for abdominal pain nausea vomiting and change in mental status. Patient had a CAT scan done there was no change no acute pathology so patient to this facility for further management. As per the daughter patient has chronic nausea vomiting and on and off abdominal pain. No GI bleeding. She is more alert awake and lucid compared to yesterday. Past Medical History Medical History: deep vein thrombosis, renal disease Past Surgical History Past Surgical Hx: endoscopy, other Family History Significant Family History: diabetes, hypertension Social History Alcohol Use: none Smoking Status: Never smoker Drug Use: none Exam/Review of Systems Vital Signs Vitals Vital Signs Date Time Temp Pulse Resp B/P Pulse Ox O2 Delivery O2 Flow Rate FiO2 04/13/17 14:00 97.8 92 16 95/52 97 04/13/17 07:56 Room Air Exam Constitutional: alert, oriented, well developed Psych: nl mood/affect, no complaints Head: atraumatic, normocephalic Eyes: EOMI, PERRL, nl conjunctiva, nl lids, nl sclera ENMT: nl external ears & nose, nl lips & teeth, nl nasal mucosa & septum Neck: non-tender, supple Respiratory: clear to auscultation, normal air movement Cardiovascular: nl pulses, regular rate and rhythm Gastrointestinal: nl liver, spleen, non-tender, soft Musculoskeletal: nl extremities to inspection, nl gait and stance Extremities: normal pulses Neurological: HEEL SEAT FITTER II-XII intact, nl mental status, nl speech, nl strength Skin: nl turgor, No rash or lesions Lymph: nl lymph nodes Results Result Diagram: 04/13/17 0937 04/13/17 0937 Results 24 hrs Laboratory Tests Test 04/13/17 09:37 04/13/17 17:30 White Blood Count 6.0 Red Blood Count 3.37 L Hemoglobin 11.0 #L Hematocrit 32.8 #L Mean Corpuscular Volume 97.3 Mean Corpuscular Hemoglobin 32.6 Mean Corpuscular Hemoglobin Concent 33.5 Red Cell Distribution Width 16.8 H Platelet Count 178 Mean Platelet Volume 9.3 Neutrophils % 59.5 Lymphocytes % 29.7 Monocytes % 7.6 Eosinophils % 2.2 Basophils % 0.8 Nucleated Red Blood Cells % 0.0 Neutrophils # 3.5 Lymphocytes # 1.8 Monocytes # 0.5 Eosinophils # 0.1 Basophils # 0.1 Nucleated Red Blood Cells # 0.0 Sodium Level 136 Potassium Level 3.8 Chloride Level 98 Carbon Dioxide Level 25 Anion Gap 17 H Blood Urea Nitrogen 18 Creatinine 1.13 H Glucose Level 120 Calcium Level 8.9 Total Bilirubin 0.7 Direct Bilirubin 0.00 Indirect Bilirubin 0.7 Aspartate Amino Transf (AST/SGOT) 47 H Alanine Aminotransferase (ALT/SGPT) 30 Alkaline Phosphatase 130 H Ammonia 38 #H B-Type Natriuretic Peptide 519 H Total Protein 5.6 L Albumin 2.3 L Globulin 3.30 H Albumin/Globulin Ratio 0.69 Bedside Glucose 232 H Medications Medications Current Medications Dextrose/Sodium Chloride (D5-1/2ns) 1,000 ml @ 40 mls/hr Q24H IV Last administered on 04/13/17 09:57; Admin Dose 40 MLS/HR; Start 04/13/17 at 08:00 Ondansetron HCl (Zofran Inj) 4 mg Q6H PRN IV NAUSEA AND/OR VOMITING; Start at 08:00 Pantoprazole 40 mg 40 mg DAILY@06 IV Last administered on 04/13/17 08:22; Admin Dose 40 MG; Start 04/13/17 at 08:00 Ceftriaxone Sodium (Rocephin) 50 ml @ 100 mls/hr Q24H IVPB ; Start 04/14/17 at 00:00 Apixaban (Eliquis) 5 mg BID PO ; Start 04/13/17 at 21:00 Dicyclomine HCl (Bentyl) 20 mg QID PO Last administered on 04/13/17 17:35; Admin Dose 20 MG; Start 04/13/17 at 17:00 Furosemide (Lasix) 20 mg DAILY PO ; Start 04/14/17 at 09:00 Acetaminophen/ Hydrocodone Bitart ([place] (10/325)) 1 tab Q6H PRN PO PAIN; Start 04/13/17 at 16:00 Insulin Glargine (Lantus) 20 unit DAILY SC ; Start 04/14/17 at 09:00 Meclizine HCl (Antivert) 25 mg Q6H PRN PO DIZZINESS; Start 04/13/17 at 16:00 Mycophenolate Mofetil (Cellcept) 500 mg TID PO ; Start 04/13/17 at 21:00 Ondansetron HCl (Zofran Odt) 4 mg Q6H PRN ODT NAUSEA AND/OR VOMITING; Start at 16:00 Spironolactone (Aldactone) 50 mg DAILY PO ; Start 04/14/17 at 09:00 Lactulose (Enulose) 30 gm BID PO ; Start 04/13/17 at 21:00 Diagnostic Test (Pha) (Accu-Chek) 1 ea 02 XX ; Start 04/14/17 at 02:00 Miscellaneous Information 1 ea NOTE XX ; Start 04/13/17 at 16:30 Glucose (Glutose) 15 gm Q15M PRN PO DECREASED GLUCOSE; Start 04/13/17 at 16:30 Glucose (Glutose) 22.5 gm Q15M PRN PO DECREASED GLUCOSE; Start 04/13/17 at 16: 30 Dextrose (D50w Syringe) 25 ml Q15M PRN IV DECREASED GLUCOSE; Start 04/13/17 at 16:30 Dextrose (D50w Syringe) 50 ml Q15M PRN IV DECREASED GLUCOSE; Start 04/13/17 at 16:30 Glucagon (Glucagen) 1 mg Q15M PRN IM DECREASED GLUCOSE; Start 04/13/17 at 16:30 Glucose (Glutose) 15 gm Q15M PRN BUCCAL DECREASED GLUCOSE; Start 04/13/17 at 16 :30 LAURA RAMIREZ MD Apr 13, 2017 18:51
[2017-04-13 19:54] VITALS: BP 97/63; RESP 20
[2017-04-13] MEDS: MYCOPHENOLATE 250 MG CAP PO SCH (20:53)
[2017-04-13] MEDS: APIXABAN 5 MG TABLET PO SCH (20:53)
[2017-04-13] MEDS: LACTULOSE 30ML CUP PO SCH (20:58)
--- NOTE | 2017-04-13 22:50 | HP ---
Date/Time of Note Date/Time of Note DATE: 04/13/17 TIME: 22:43 Assessment/Plan VTE Prophylaxis VTE Prophylaxis Intervention: other Lines/Catheters IV Catheter Type (from Nrsg): Saline Lock Assessment/Plan Chief Complaint/Hosp Course abd pain cirrhosis poss sbp dm hx dvtplan per order Problems: HPI/ROS Admit Date/Time Admit Date/Time Apr 13, 2017 at 06:37 Hx of Present Illness abd pain hx cirrhosis ROS Constitutional: nausea, No febrile Eyes: no complaints ENT: no complaints Respiratory: no complaints Cardiovascular: no complaints Gastrointestinal: decreased appetite, nausea, pain (+), No diarrhea Genitourinary: no complaints Musculoskeletal: no complaints Skin: no complaints Neurologic: no complaints Endocrine: no complaints Lymphatic: no complaints Psychological: nl mood/affect, no complaints PMH/Family/Social Past Medical History Medical History: deep vein thrombosis, renal disease Past Surgical History Past Surgical Hx: endoscopy, other Social History Alcohol Use: none Smoking Status: Never smoker Drug Use: none Exam/Review of Systems Vital Signs Vitals Vital Signs Date Time Temp Pulse Resp B/P Pulse Ox O2 Delivery O2 Flow Rate FiO2 04/13/17 19:54 97.8 88 20 97/63 97 04/13/17 07:56 Room Air Exam Constitutional: alert, oriented, well developed Psych: nl mood/affect Head: atraumatic, normocephalic Eyes: EOMI, nl conjunctiva ENMT: nl external ears & nose Neck: non-tender, supple Respiratory: clear to auscultation, normal air movement Cardiovascular: nl pulses, regular rate and rhythm Gastrointestinal: ascites (+), soft, tender (+) Musculoskeletal: nl extremities to inspection Extremities: edema (+) Neurological: 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 intact, nl mental status Labs Result Diagram: 04/13/1737 04/13/17 0937 Medications Medications Current Medications Dextrose/Sodium Chloride (D5-1/2ns) 1,000 ml @ 40 mls/hr Q24H IV Last administered on 04/13/17 09:57; Admin Dose 40 MLS/HR; Start 04/13/17 at 08:00 Ondansetron HCl (Zofran Inj) 4 mg Q6H PRN IV NAUSEA AND/OR VOMITING; Start at 08:00 Pantoprazole 40 mg 40 mg DAILY@06 IV Last administered on 04/13/17 08:22; Admin Dose 40 MG; Start 04/13/17 at 08:00 Ceftriaxone Sodium (Rocephin) 50 ml @ 100 mls/hr Q24H IVPB ; Start 04/14/17 at 00:00 Apixaban (Eliquis) 5 mg BID PO Last administered on 04/13/17 20:53; Admin Dose 5 MG; Start 04/13/17 at 21:00 Dicyclomine HCl (Bentyl) 20 mg QID PO Last administered on 04/13/17 20:53; Admin Dose 20 MG; Start 04/13/17 at 17:00 Furosemide (Lasix) 20 mg DAILY PO ; Start 04/14/17 at 09:00 Acetaminophen/ Hydrocodone Bitart ([place] (10/325)) 1 tab Q6H PRN PO PAIN; Start 04/13/17 at 16:00 Insulin Glargine (Lantus) 20 unit DAILY SC ; Start 04/14/17 at 09:00 Meclizine HCl (Antivert) 25 mg Q6H PRN PO DIZZINESS; Start 04/13/17 at 16:00 Mycophenolate Mofetil (Cellcept) 500 mg TID PO Last administered on 04/13/17 20:53; Admin Dose 500 MG; Start 04/13/17 at 21:00 Ondansetron HCl (Zofran Odt) 4 mg Q6H PRN ODT NAUSEA AND/OR VOMITING; Start at 16:00 Spironolactone (Aldactone) 50 mg DAILY PO ; Start 04/14/17 at 09:00 Lactulose (Enulose) 30 gm BID PO ; Start 04/13/17 at 21:00 Diagnostic Test (Pha) (Accu-Chek) 1 ea 02 XX ; Start 04/14/17 at 02:00 Miscellaneous Information 1 ea NOTE XX ; Start 04/13/17 at 16:30 Glucose (Glutose) 15 gm Q15M PRN PO DECREASED GLUCOSE; Start 04/13/17 at 16:30 Glucose (Glutose) 22.5 gm Q15M PRN PO DECREASED GLUCOSE; Start 04/13/17 at 16: 30 Dextrose (D50w Syringe) 25 ml Q15M PRN IV DECREASED GLUCOSE; Start 7/18/17 at 16:30 Dextrose (D50w Syringe) 50 ml Q15M PRN IV DECREASED GLUCOSE; Start 04/13/17 at 16:30 Glucagon (Glucagen) 1 mg Q15M PRN IM DECREASED GLUCOSE; Start 04/13/17 at 16:30 Glucose (Glutose) 15 gm Q15M PRN BUCCAL DECREASED GLUCOSE; Start 04/13/17 at 16 :30 LYNETTE SAINZ MD Apr 13, 2017 22:50
[2017-04-13] MEDS: CEFTRIAXONE 1 GM/NS 50 ML IVPB SCH (23:16)
[2017-04-14] MEDS ORDERED: CEFTRIAXONE 1 GM INJ IVPB SCH
[2017-04-14] MEDS: ACCU-CHEK XX SCH (02:00)
[2017-04-14] MEDS ORDERED: ACCU-CHEK XX SCH (02:00)
[2017-04-14 02:26] VITALS: BP 97/62; RESP 21
[2017-04-14] MEDS: PANTOPRAZOLE 40 MG INJ IV SCH (05:00)
[2017-04-14 06:28] LABS: ADD SCAN DIFF NO
[2017-04-14 06:30] LABS: BASOPHILS % 0.8 % (0.0-2.0); EOSINOPHILS # 0.1 10^3/ul (0.0-0.5); HEMATOCRIT 29.6 % (37.0-47.0); HEMOGLOBIN 10.1 g/dl (12.0-16.0); LYMPHOCYTES # 1.3 10^3/ul (0.8-2.9); LYMPHOCYTES % 33.3 % (15.0-51.0); MEAN CORPUSCULAR HEMOGLOBIN 32.9 pg (29.0-33.0); MEAN CORPUSCULAR HGB CONC 34.1 g/dl (32.0-37.0); MEAN CORPUSCULAR VOLUME 96.4 fl (82.0-101.0); MEAN PLATELET VOLUME 9.1 fl (7.4-10.4); MONOCYTE # 0.4 10^3/ul (0.3-0.9); NEUTROPHIL # 2.2 10^3/ul (1.6-7.5); NEUTROPHILS % 54.4 % (39.0-77.0); PLATELET COUNT 154 10^3/UL (140-415); RED BLOOD COUNT 3.07 10^6/ul (4.20-5.40); RED CELL DISTRIBUTION WIDTH 16.4 % (11.5-14.5)
[2017-04-14 07:25] LABS: ALBUMIN 2.1 g/dl (3.3-4.9); ALBUMIN/GLOBULIN RATIO 0.72; BILIRUBIN,INDIRECT 0.4 mg/dl (0-1.1); BILIRUBIN,TOTAL 0.4 mg/dl (0.2-1.3); CALCIUM 8.4 mg/dl (8.4-10.2); CREATININE 0.92 mg/dl (0.44-1.00)
[2017-04-14 07:45] VITALS: BP 95/59; RESP 18
[2017-04-14] MEDS: INSULIN ASPART [NOVOLOG] 3 ML PEN SC SCH ×4 (07:58→21:00)
[2017-04-14 08:00] LABS: POTASSIUM 2.8 mmol/L (3.5-5.1)
[2017-04-14] MEDS: DEXTROSE 5%-0.45% NACL 1,000 ML IV SCH ×3 (08:00→20:03)
[2017-04-14] MEDS: POTASSIUM CHLORIDE (SR) 20 MEQ TAB PO SCH ×2 (08:53→21:04)
[2017-04-14] MEDS: SPIRONOLACTONE 50 MG TAB PO SCH (08:53)
[2017-04-14] MEDS: FUROSEMIDE 20 MG TAB PO SCH (08:53)
[2017-04-14] MEDS: APIXABAN 5 MG TABLET PO SCH ×2 (08:53→21:03)
[2017-04-14] MEDS: MYCOPHENOLATE 250 MG CAP PO SCH ×3 (08:53→21:04)
[2017-04-14] MEDS: LACTULOSE 30ML CUP PO SCH ×2 (08:54→21:07)
[2017-04-14] MEDS: DICYCLOMINE 10 MG CAP PO SCH ×4 (08:54→21:04)
[2017-04-14] MEDS: INSULIN GLARGINE [LANtus] 3 ML PEN SC SCH (08:55)
[2017-04-14] MEDS ORDERED: NON-FORMULARY/PATIENT OWN MED (Pantoprazole Sodium (Protonix) 40 MG) PO SCH (09:00)
[2017-04-14] MEDS: HYDROCODONE/APAP (10/325) TAB PO PRN (14:28)
[2017-04-14 14:30] VITALS: BP 99/66; RESP 18
--- NOTE | 2017-04-14 18:09 | CONS ---
Date/Time of Note Date/Time of Note DATE: 04/14/17 TIME: 18:08 Assessment/Plan Assessment/Plan Chief Complaint/Hosp Course 61-year-old female with a history of autoimmune hepatitis cirrhosis of liver on immunosuppressive medication was originally taken to the emergency room at [facility] for abdominal pain nausea vomiting and change in mental status. Patient had a CAT scan done there was no change no acute pathology so patient to this facility for further management. As per the daughter patient has chronic nausea vomiting and on and off abdominal pain. No GI bleeding. She is more alert awake and lucid compared to yesterday. Problems: Additional Assessment/Plan Additional Assessment/Plan 1. Hepatic encephalopathy 2. 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 Ascites 5. Diabetes mellitus 5. DVT. Plan Continue Reglan and PPI Lactulose and rifaximin We need to discuss with [facility] instead of CellCept we can change it to her azathioprine Consultation Date/Type/Reason Admit Date/Time Apr 13, 2017 at 06:37 Initial Consult Date 24 HR Interval Summary Free Text/Dictation Abdominal pain Nausea and vomiting Exam/Review of Systems Vital Signs Vitals Vital Signs Date Time Temp Pulse Resp B/P Pulse Ox O2 Delivery O2 Flow Rate FiO2 04/14/17 14:30 98.0 99 18 99/66 96 04/13/17 07:56 Room Air Intake and Output 04/13/17 04/13/17 04/14/17 15:00 23:00 07:00 Intake Total 1560 ml 930 ml Balance 1560 ml 930 ml Exam Constitutional: alert, oriented, well developed Psych: nl mood/affect, no complaints Head: atraumatic, normocephalic Eyes: EOMI, PERRL, nl conjunctiva, nl lids, nl sclera ENMT: nl external ears & nose, nl lips & teeth, nl nasal mucosa & septum Neck: non-tender, supple Respiratory: clear to auscultation, normal air movement Cardiovascular: nl pulses, regular rate and rhythm Gastrointestinal: nl liver, spleen, non-tender, soft Musculoskeletal: nl extremities to inspection, nl gait and stance Extremities: normal pulses Neurological: VEGETABLE SCULLION II-XII intact, nl mental status, nl speech, nl strength Skin: nl turgor, No rash or lesions Lymph: nl lymph nodes Results Result Diagram: 7/19/17 0530 7/19/17 0530 Results 24 hrs Laboratory Tests Test 04/13/17 20:44 04/13/17 23:20 04/14/17 01:45 04/14/17 05:30 Bedside Glucose 286 H 235 H 206 White Blood Count 4.0 #L Red Blood Count 3.07 L Hemoglobin 10.1 L Hematocrit 29.6 L Mean Corpuscular Volume 96.4 Mean Corpuscular Hemoglobin 32.9 Mean Corpuscular Hemoglobin Concent 34.1 Red Cell Distribution Width 16.4 H Platelet Count 154 Mean Platelet Volume 9.1 Neutrophils % 54.4 Lymphocytes % 33.3 Monocytes % 9.0 Eosinophils % 2.0 Basophils % 0.8 Nucleated Red Blood Cells % 0.0 Neutrophils # 2.2 Lymphocytes # 1.3 Monocytes # 0.4 Eosinophils # 0.1 Basophils # 0.0 Nucleated Red Blood Cells # 0.0 Sodium Level 137 Potassium Level 2.8 *L Chloride Level 98 Carbon Dioxide Level 26 Anion Gap 16 Blood Urea Nitrogen 15 Creatinine 0.92 Glucose Level 176 Calcium Level 8.4 Total Bilirubin 0.4 Direct Bilirubin 0.00 Indirect Bilirubin 0.4 Aspartate Amino Transf (AST/SGOT) 49 H Alanine Aminotransferase (ALT/SGPT) 33 Alkaline Phosphatase 120 Total Protein 5.0 L Albumin 2.1 L Globulin 2.90 Albumin/Globulin Ratio 0.72 Test 04/14/17 07:55 04/14/17 11:54 04/14/17 17:22 Bedside Glucose 193 197 178 Medications Medications Current Medications Dextrose/Sodium Chloride (D5-1/2ns) 1,000 ml @ 20 mls/hr Q24H IV Last administered on 04/14/17 09:25; Admin Dose 20 MLS/HR; Start 04/13/17 at 08:00 Ondansetron HCl (Zofran Inj) 4 mg Q6H PRN IV NAUSEA AND/OR VOMITING Last administered on 04/14/17 13:51; Admin Dose 4 MG; Start 04/13/17 at 08:00 Pantoprazole 40 mg 40 mg DAILY@06 IV Last administered on 04/14/17 05:00; Admin Dose 40 MG; Start 04/13/17 at 08:00 Ceftriaxone Sodium (Rocephin) 50 ml @ 100 mls/hr Q24H IVPB Last administered on 04/13/17 23:16; Admin Dose 100 MLS/HR; Start 04/14/17 at 00:00 Apixaban (Eliquis) 5 mg BID PO Last administered on 04/14/17 08:53; Admin Dose 5 MG; Start 04/13/17 at 21:00 Dicyclomine HCl (Bentyl) 20 mg QID PO Last administered on 04/14/17 17:38; Admin Dose 20 MG; Start 04/13/17 at 17:00 Furosemide (Lasix) 20 mg DAILY PO Last administered on 04/14/17 08:53; Admin Dose 20 MG; Start 04/14/17 at 09:00 Acetaminophen/ Hydrocodone Bitart ([place] (10/325)) 1 tab Q6H PRN PO PAIN Last administered on 04/14/17 14:28; Admin Dose 1 TAB; Start 04/13/17 at 16:00 Insulin Glargine (Lantus) 20 unit DAILY SC Last administered on 04/14/17 08:55 ; Admin Dose 20 UNIT; Start 04/14/17 at 09:00 Meclizine HCl (Antivert) 25 mg Q6H PRN PO DIZZINESS; Start 04/13/17 at 16:00 Mycophenolate Mofetil (Cellcept) 500 mg TID PO Last administered on 04/14/17 13:54; Admin Dose 500 MG; Start 04/13/17 at 21:00 Ondansetron HCl (Zofran Odt) 4 mg Q6H PRN ODT NAUSEA AND/OR VOMITING; Start at 16:00 Spironolactone (Aldactone) 50 mg DAILY PO Last administered on 04/14/17 08:53 ; Admin Dose 50 MG; Start 04/14/17 at 09:00 Lactulose (Enulose) 30 gm BID PO Last administered on 04/14/17 08:54; Admin Dose 30 GM; Start 04/13/17 at 21:00 Diagnostic Test (Pha) (Accu-Chek) 1 ea 02 XX ; Start 04/14/17 at 02:00 Miscellaneous Information 1 ea NOTE XX ; Start 04/13/17 at 16:30 Glucose (Glutose) 15 gm Q15M PRN PO DECREASED GLUCOSE; Start 04/13/17 at 16:30 Glucose (Glutose) 22.5 gm Q15M PRN PO DECREASED GLUCOSE; Start 04/13/17 at 16: 30 Dextrose (D50w Syringe) 25 ml Q15M PRN IV DECREASED GLUCOSE; Start 04/13/17 at 16:30 Dextrose (D50w Syringe) 50 ml Q15M PRN IV DECREASED GLUCOSE; Start 04/13/17 at 16:30 Glucagon (Glucagen) 1 mg Q15M PRN IM DECREASED GLUCOSE; Start 04/13/17 at 16:30 Glucose (Glutose) 15 gm Q15M PRN BUCCAL DECREASED GLUCOSE; Start 04/13/17 at 16 :30 Potassium Chloride (Klor-Con 20) 20 meq BID PO Last administered on 04/14/17 08:53; Admin Dose 20 MEQ; Start 04/14/17 at 09:00 LAURA RAMIREZ MD Apr 14, 2017 18:09
[2017-04-14 19:54] LABS: INR 1.97; PROTIME 22.6 Sec (12.2-14.2); PT RATIO 1.8
[2017-04-14 20:41] VITALS: BP 91/63; RESP 18
--- NOTE | 2017-04-14 22:35 | PN ---
Date/Time of Note Date/Time of Note DATE: 04/14/17 TIME: 22:34 Assessment/Plan VTE Prophylaxis VTE Prophylaxis Intervention: other Lines/Catheters IV Catheter Type (from Nrsg): Peripheral IV Assessment/Plan Chief Complaint/Hosp Course abd pain cirrhosis poss sbp dm hx dvtplan per order paracentesis Problems: Subjective 24 Hr Interval Summary Cardiovascular: no complaints Gastrointestinal: pain Genitourinary: no complaints Exam/Review of Systems Vital Signs Vitals Vital Signs Date Time Temp Pulse Resp B/P Pulse Ox O2 Delivery O2 Flow Rate FiO2 04/14/17 20:41 98.3 91 18 91/63 94 04/13/17 07:56 Room Air Intake and Output 04/13/17 04/13/17 04/14/17 15:00 23:00 07:00 Intake Total 1560 ml 930 ml Balance 1560 ml 930 ml Exam ENMT: nl external ears & nose Neck: supple Respiratory: clear to auscultation Cardiovascular: regular rate and rhythm Gastrointestinal: soft Results Result Diagram: 04/14/17 0530 04/14/17 0530 Results 24 hrs Laboratory Tests Test 04/13/17 23:20 04/14/17 01:45 04/14/17 05:30 04/14/17 07:55 Bedside Glucose 235 H 206 193 White Blood Count 4.0 #L Red Blood Count 3.07 L Hemoglobin 10.1 L Hematocrit 29.6 L Mean Corpuscular Volume 96.4 Mean Corpuscular Hemoglobin 32.9 Mean Corpuscular Hemoglobin Concent 34.1 Red Cell Distribution Width 16.4 H Platelet Count 154 Mean Platelet Volume 9.1 Neutrophils % 54.4 Lymphocytes % 33.3 Monocytes % 9.0 Eosinophils % 2.0 Basophils % 0.8 Nucleated Red Blood Cells % 0.0 Neutrophils # 2.2 Lymphocytes # 1.3 Monocytes # 0.4 Eosinophils # 0.1 Basophils # 0.0 Nucleated Red Blood Cells # 0.0 Sodium Level 137 Potassium Level 2.8 *L Chloride Level 98 Carbon Dioxide Level 26 Anion Gap 16 Blood Urea Nitrogen 15 Creatinine 0.92 Glucose Level 176 Calcium Level 8.4 Total Bilirubin 0.4 Direct Bilirubin 0.00 Indirect Bilirubin 0.4 Aspartate Amino Transf (AST/SGOT) 49 H Alanine Aminotransferase (ALT/SGPT) 33 Alkaline Phosphatase 120 Total Protein 5.0 L Albumin 2.1 L Globulin 2.90 Albumin/Globulin Ratio 0.72 Test 04/14/17 11:54 04/14/17 17:22 04/14/17 19:25 04/14/17 21:14 Bedside Glucose 197 178 162 Prothrombin Time 22.6 #H Prothrombin Time Ratio 1.8 INR International Normalized Ratio 1.97 Medications Medications Current Medications Dextrose/Sodium Chloride (D5-1/2ns) 1,000 ml @ 20 mls/hr Q24H IV Last administered on 04/14/17 20:03; Admin Dose 20 MLS/HR; Start 04/13/17 at 08:00 Ondansetron HCl (Zofran Inj) 4 mg Q6H PRN IV NAUSEA AND/OR VOMITING Last administered on 04/14/17 13:51; Admin Dose 4 MG; Start 04/13/17 at 08:00 Pantoprazole 40 mg 40 mg DAILY@06 IV Last administered on 04/14/17 05:00; Admin Dose 40 MG; Start 04/13/17 at 08:00 Ceftriaxone Sodium (Rocephin) 50 ml @ 100 mls/hr Q24H IVPB Last administered on 04/13/17 23:16; Admin Dose 100 MLS/HR; Start 04/14/17 at 00:00 Apixaban (Eliquis) 5 mg BID PO Last administered on 04/14/17 21:03; Admin Dose 5 MG; Start 04/13/17 at 21:00 Dicyclomine HCl (Bentyl) 20 mg QID PO Last administered on 04/14/17 21:04; Admin Dose 20 MG; Start 04/13/17 at 17:00 Furosemide (Lasix) 20 mg DAILY PO Last administered on 04/14/17 08:53; Admin Dose 20 MG; Start 04/14/17 at 09:00 Acetaminophen/ Hydrocodone Bitart ([place] (10/325)) 1 tab Q6H PRN PO PAIN Last administered on 04/14/17 14:28; Admin Dose 1 TAB; Start 04/13/17 at 16:00 Insulin Glargine (Lantus) 20 unit DAILY SC Last administered on 04/14/17 08:55 ; Admin Dose 20 UNIT; Start 04/14/17 at 09:00 Meclizine HCl (Antivert) 25 mg Q6H PRN PO DIZZINESS; Start 04/13/17 at 16:00 Mycophenolate Mofetil (Cellcept) 500 mg TID PO Last administered on 04/14/17 21:04; Admin Dose 500 MG; Start 04/13/17 at 21:00 Ondansetron HCl (Zofran Odt) 4 mg Q6H PRN ODT NAUSEA AND/OR VOMITING; Start at 16:00 Spironolactone (Aldactone) 50 mg DAILY PO Last administered on 04/14/17 08:53 ; Admin Dose 50 MG; Start 04/14/17 at 09:00 Lactulose (Enulose) 30 gm BID PO Last administered on 04/14/17 21:07; Admin Dose 30 GM; Start 04/13/17 at 21:00 Diagnostic Test (Pha) (Accu-Chek) 1 ea 02 XX ; Start 04/14/17 at 02:00 Miscellaneous Information 1 ea NOTE XX ; Start 04/13/17 at 16:30 Glucose (Glutose) 15 gm Q15M PRN PO DECREASED GLUCOSE; Start 04/13/17 at 16:30 Glucose (Glutose) 22.5 gm Q15M PRN PO DECREASED GLUCOSE; Start 04/13/17 at 16: 30 Dextrose (D50w Syringe) 25 ml Q15M PRN IV DECREASED GLUCOSE; Start 04/13/17 at 16:30 Dextrose (D50w Syringe) 50 ml Q15M PRN IV DECREASED GLUCOSE; Start 04/13/17 at 16:30 Glucagon (Glucagen) 1 mg Q15M PRN IM DECREASED GLUCOSE; Start 04/13/17 at 16:30 Glucose (Glutose) 15 gm Q15M PRN BUCCAL DECREASED GLUCOSE; Start 04/13/17 at 16 :30 Potassium Chloride (Klor-Con 20) 20 meq BID PO Last administered on 04/14/17 21:04; Admin Dose 20 MEQ; Start 04/14/17 at 09:00 Metoclopramide HCl (Reglan) 5 mg Q6 IV ; Start 04/15/17 at 00:00 LYNETTE SAINZ MD Apr 14, 2017 22:35
[2017-04-15] VITALS (9 sets, daily range): BP systolic 83–100; BP diastolic 51–63; PULSE 75–106; RESP 18–20
[2017-04-15] MEDS: CEFTRIAXONE 1 GM/NS 50 ML IVPB SCH ×2 (00:10→23:13)
[2017-04-15] MEDS: METOCLOPRAMIDE 10 MG INJ IV SCH ×6 (00:10→23:13)
[2017-04-15] MEDS: ACCU-CHEK XX SCH (02:00)
[2017-04-15 05:19] LABS: ALBUMIN 2.1 g/dl (3.3-4.9); ALBUMIN/GLOBULIN RATIO 0.67; BILIRUBIN,INDIRECT 0.4 mg/dl (0-1.1); BILIRUBIN,TOTAL 0.4 mg/dl (0.2-1.3); CALCIUM 8.2 mg/dl (8.4-10.2); CREATININE 0.95 mg/dl (0.44-1.00); POTASSIUM 3.4 mmol/L (3.5-5.1); TOTAL PROTEIN 5.2 g/dl (6.1-8.1)
[2017-04-15] MEDS: PANTOPRAZOLE 40 MG INJ IV SCH (06:00)
[2017-04-15] MEDS: INSULIN ASPART [NOVOLOG] 3 ML PEN SC SCH ×5 (07:55→20:16)
[2017-04-15] MEDS: INSULIN GLARGINE [LANtus] 3 ML PEN SC SCH (08:54)
[2017-04-15] MEDS: MYCOPHENOLATE 250 MG CAP PO SCH ×3 (08:55→20:13)
[2017-04-15] MEDS: DICYCLOMINE 10 MG CAP PO SCH ×4 (08:55→20:13)
[2017-04-15] MEDS: POTASSIUM CHLORIDE (SR) 20 MEQ TAB PO SCH ×2 (08:56→20:14)
[2017-04-15] MEDS: LACTULOSE 30ML CUP PO SCH ×2 (09:00→20:17)
[2017-04-15] MEDS: APIXABAN 5 MG TABLET PO SCH ×2 (09:00→20:14)
[2017-04-15] MEDS: SPIRONOLACTONE 50 MG TAB PO SCH (09:00)
[2017-04-15] MEDS: FUROSEMIDE 20 MG TAB PO SCH (09:00)
[2017-04-15] MEDS ORDERED: LIDOCAINE 1% (MPF) 5 ML VIAL ONE (12:33)
--- NOTE | 2017-04-15 13:16 | RADRPT ---
PROCEDURE: Ultrasound guided paracentesis. CLINICAL INDICATION: Ascites and shortness of breath. COMPARISON: 04/05/2017. TECHNIQUE: The risks, benefits, and alternatives were explained to the patient and/or the patient's family, inc luding but not limited to bleeding, infection, pain, visceral or vascular damage, shock, and . The patient and/or the patient's family understood the risks and the alternatives and wished to pro ceed with the procedure. Informed written consent was obtained. A procedural time out was performed . The patient's name, date of , and procedure to be performed were verified. Utilizing ultrasound guidance, optimal location for entry to the peritoneal cavity was ascertained. The overlying skin was prepped and draped in the usual sterile fashion. Approximately 10 ml of 1% Xylocaine was injected locally for pain control. Using ultrasound guidance, an 8 [place] catheter wa s introduced into the peritoneal cavity in the right lower quadrant without difficulty. FINDINGS: Initial images demonstrate ascites. Approximately 4.7 liters of serous fluid was aspirated and disc arded. The patient tolerated the procedure well without complication. IMPRESSION: 1. Successful ultrasound-guided paracentesis. RPTAT: QQ .Robbie Geller MD, Date Time Electronically viewed and signed by .Robbie Geller MD, on 04/15/2017 13:16 .R/
[2017-04-15] MEDS ORDERED: POTASSIUM CHLORIDE (SR) 20 MEQ TAB PO STA (15:16)
[2017-04-15] MEDS ORDERED: ALBUMIN HUMAN 25% 100 ML IV ONE (15:30)
--- NOTE | 2017-04-15 19:09 | CONS ---
Date/Time of Note Date/Time of Note DATE: 04/15/17 TIME: 19:08 Assessment/Plan Assessment/Plan Chief Complaint/Hosp Course 61-year-old female with a history of autoimmune hepatitis cirrhosis of liver on immunosuppressive medication was originally taken to the emergency room at [facility] for abdominal pain nausea vomiting and change in mental status. Patient had a CAT scan done there was no change no acute pathology so patient to this facility for further management. As per the daughter patient has chronic nausea vomiting and on and off abdominal pain. No GI bleeding. She is more alert awake and lucid compared to yesterday. Problems: Additional Assessment/Plan 1. Hepatic encephalopathy 2. 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 Ascites 5. Diabetes mellitus 5. DVT. 6. Status post paracentesis for enough liters of fluid removed Plan Continue Reglan and PPI Lactulose and rifaximin We need to discuss with [facility] instead of CellCept we can change it to her azathioprine Consultation Date/Type/Reason Admit Date/Time Apr 13, 2017 at 06:37 24 HR Interval Summary Constitutional: improved Exam/Review of Systems Vital Signs Vitals Vital Signs Date Time Temp Pulse Resp B/P Pulse Ox O2 Delivery O2 Flow Rate FiO2 04/15/17 15:30 103 96/55 04/15/17 14:20 98.1 18 98 Room Air Intake and Output 04/14/17 04/14/17 04/15/17 15:00 23:00 07:00 Intake Total 160 ml 980 ml 840 ml Balance 160 ml 980 ml 840 ml Exam Constitutional: alert, oriented, well developed Psych: nl mood/affect, no complaints Head: atraumatic, normocephalic Eyes: EOMI, PERRL, nl conjunctiva, nl lids, nl sclera ENMT: nl external ears & nose, nl lips & teeth, nl nasal mucosa & septum Neck: non-tender, supple Respiratory: clear to auscultation, normal air movement Cardiovascular: nl pulses, regular rate and rhythm Gastrointestinal: nl liver, spleen, non-tender, soft Musculoskeletal: nl extremities to inspection, nl gait and stance Extremities: normal pulses Neurological: FLORIST HELPER II-XII intact, nl mental status, nl speech, nl strength Skin: nl turgor, No rash or lesions Lymph: nl lymph nodes Results Result Diagram: 04/14/17 0530 04/15/17 0437 Results 24 hrs Laboratory Tests Test 04/14/17 19:25 04/14/17 21:14 04/15/17 04:37 04/15/17 07:54 Prothrombin Time 22.6 #H Prothrombin Time Ratio 1.8 INR International Normalized Ratio 1.97 Bedside Glucose 162 118 Sodium Level 137 Potassium Level 3.4 L Chloride Level 101 Carbon Dioxide Level 25 Anion Gap 14 Blood Urea Nitrogen 11 Creatinine 0.95 Glucose Level 138 Calcium Level 8.2 L Total Bilirubin 0.4 Direct Bilirubin 0.00 Indirect Bilirubin 0.4 Aspartate Amino Transf (AST/SGOT) 55 H Alanine Aminotransferase (ALT/SGPT) 31 Alkaline Phosphatase 122 H Total Protein 5.2 L Albumin 2.1 L Globulin 3.10 Albumin/Globulin Ratio 0.67 Test 04/15/17 08:53 04/15/17 12:12 04/15/17 13:27 04/15/17 17:49 Bedside Glucose 174 234 H 193 229 H Medications Medications Current Medications Dextrose/Sodium Chloride (D5-1/2ns) 1,000 ml @ 20 mls/hr Q24H IV Last administered on 04/14/17 20:03; Admin Dose 20 MLS/HR; Start 04/13/17 at 08:00 Ondansetron HCl (Zofran Inj) 4 mg Q6H PRN IV NAUSEA AND/OR VOMITING Last administered on 04/14/17 13:51; Admin Dose 4 MG; Start 04/13/17 at 08:00 Pantoprazole 40 mg 40 mg DAILY@06 IV Last administered on 04/15/17 06:00; Admin Dose 40 MG; Start 04/13/17 at 08:00 Ceftriaxone Sodium (Rocephin) 50 ml @ 100 mls/hr Q24H IVPB Last administered on 04/15/17 00:10; Admin Dose 100 MLS/HR; Start 04/14/17 at 00:00 Apixaban (Eliquis) 5 mg BID PO Last administered on 04/14/17 21:03; Admin Dose 5 MG; Start 04/13/17 at 21:00 Dicyclomine HCl (Bentyl) 20 mg QID PO Last administered on 04/15/17 17:50; Admin Dose 20 MG; Start 04/13/17 at 17:00 Furosemide (Lasix) 20 mg DAILY PO Last administered on 04/14/17 08:53; Admin Dose 20 MG; Start 04/14/17 at 09:00 Acetaminophen/ Hydrocodone Bitart ([place] (10/325)) 1 tab Q6H PRN PO PAIN Last administered on 04/14/17 14:28; Admin Dose 1 TAB; Start 04/13/17 at 16:00 Insulin Glargine (Lantus) 20 unit DAILY SC Last administered on 04/15/17 08:54 ; Admin Dose 20 UNIT; Start 04/14/17 at 09:00 Meclizine HCl (Antivert) 25 mg Q6H PRN PO DIZZINESS; Start 04/13/17 at 16:00 Mycophenolate Mofetil (Cellcept) 500 mg TID PO Last administered on 04/15/17 13:29; Admin Dose 500 MG; Start 04/13/17 at 21:00 Ondansetron HCl (Zofran Odt) 4 mg Q6H PRN ODT NAUSEA AND/OR VOMITING; Start at 16:00 Spironolactone (Aldactone) 50 mg DAILY PO Last administered on 04/14/17 08:53 ; Admin Dose 50 MG; Start 04/14/17 at 09:00 Lactulose (Enulose) 30 gm BID PO Last administered on 04/14/17 21:07; Admin Dose 30 GM; Start 04/13/17 at 21:00 Diagnostic Test (Pha) (Accu-Chek) 1 ea 02 XX ; Start 04/14/17 at 02:00 Miscellaneous Information 1 ea NOTE XX ; Start 04/13/17 at 16:30 Glucose (Glutose) 15 gm Q15M PRN PO DECREASED GLUCOSE; Start 04/13/17 at 16:30 Glucose (Glutose) 22.5 gm Q15M PRN PO DECREASED GLUCOSE; Start 04/13/17 at 16: 30 Dextrose (D50w Syringe) 25 ml Q15M PRN IV DECREASED GLUCOSE; Start 04/13/17 at 16:30 Dextrose (D50w Syringe) 50 ml Q15M PRN IV DECREASED GLUCOSE; Start 04/13/17 at 16:30 Glucagon (Glucagen) 1 mg Q15M PRN IM DECREASED GLUCOSE; Start 04/13/17 at 16:30 Glucose (Glutose) 15 gm Q15M PRN BUCCAL DECREASED GLUCOSE; Start 04/13/17 at 16 :30 Potassium Chloride (Klor-Con 20) 20 meq BID PO Last administered on 04/15/17 08:56; Admin Dose 20 MEQ; Start 04/14/17 at 09:00 Metoclopramide HCl (Reglan) 5 mg Q6 IV Last administered on 04/15/17 17:50; Admin Dose 5 MG; Start 04/15/17 at 00:00 LAURA RAMIREZ MD Apr 15, 2017 19:08
--- NOTE | 2017-04-15 22:33 | PN ---
Date/Time of Note Date/Time of Note DATE: 04/15/17 TIME: 22:32 Assessment/Plan VTE Prophylaxis VTE Prophylaxis Intervention: other Lines/Catheters IV Catheter Type (from Nrsg): Peripheral IV Assessment/Plan Chief Complaint/Hosp Course abd pain BETTER cirrhosis poss sbp? dm hx dvt plan per order paracentesis Problems: Subjective 24 Hr Interval Summary Subjective hx not possible: other (S/P PARACENTESIS) Exam/Review of Systems Vital Signs Vitals Vital Signs Date Time Temp Pulse Resp B/P Pulse Ox O2 Delivery O2 Flow Rate FiO2 04/15/17 21:23 99 87/53 04/15/17 20:38 98.7 20 95 04/15/17 14:20 Room Air Intake and Output 04/14/17 04/14/17 04/15/17 15:00 23:00 07:00 Intake Total 160 ml 980 ml 840 ml Balance 160 ml 980 ml 840 ml Exam Neck: supple Respiratory: clear to auscultation Cardiovascular: regular rate and rhythm Gastrointestinal: soft Musculoskeletal: nl extremities to inspection Extremities: normal pulses Results Result Diagram: 04/14/17 0530 04/15/17 0437 Results 24 hrs Laboratory Tests Test 04/15/17 04:37 04/15/17 07:54 04/15/17 08:53 04/15/17 12:12 Sodium Level 137 Potassium Level 3.4 L Chloride Level 101 Carbon Dioxide Level 25 Anion Gap 14 Blood Urea Nitrogen 11 Creatinine 0.95 Glucose Level 138 Calcium Level 8.2 L Total Bilirubin 0.4 Direct Bilirubin 0.00 Indirect Bilirubin 0.4 Aspartate Amino Transf (AST/SGOT) 55 H Alanine Aminotransferase (ALT/SGPT) 31 Alkaline Phosphatase 122 H Total Protein 5.2 L Albumin 2.1 L Globulin 3.10 Albumin/Globulin Ratio 0.67 Bedside Glucose 118 174 234 H Test 04/15/17 13:27 04/15/17 17:49 04/15/17 20:12 Bedside Glucose 193 229 H 216 Medications Medications Current Medications Dextrose/Sodium Chloride (D5-1/2ns) 1,000 ml @ 20 mls/hr Q24H IV Last administered on 04/14/17t 20:03; Admin Dose 20 MLS/HR; Start 04/13/17 at 08:00 Ondansetron HCl (Zofran Inj) 4 mg Q6H PRN IV NAUSEA AND/OR VOMITING Last administered on 04/14/17 13:51; Admin Dose 4 MG; Start 04/13/17 at 08:00 Pantoprazole 40 mg 40 mg DAILY@06 IV Last administered on 04/15/17 06:00; Admin Dose 40 MG; Start 04/13/17 at 08:00 Ceftriaxone Sodium (Rocephin) 50 ml @ 100 mls/hr Q24H IVPB Last administered on 04/15/17 00:10; Admin Dose 100 MLS/HR; Start 04/14/17 at 00:00 Apixaban (Eliquis) 5 mg BID PO Last administered on 04/15/17 20:14; Admin Dose 5 MG; Start 04/13/17 at 21:00 Dicyclomine HCl (Bentyl) 20 mg QID PO Last administered on 04/15/17 20:13; Admin Dose 20 MG; Start 04/13/17 at 17:00 Furosemide (Lasix) 20 mg DAILY PO Last administered on 04/14/17 08:53; Admin Dose 20 MG; Start 04/14/17 at 09:00 Acetaminophen/ Hydrocodone Bitart ([place] (10/325)) 1 tab Q6H PRN PO PAIN Last administered on 04/14/17 14:28; Admin Dose 1 TAB; Start 04/13/17 at 16:00 Insulin Glargine (Lantus) 20 unit DAILY SC Last administered on 04/15/17 08:54 ; Admin Dose 20 UNIT; Start 04/14/17 at 09:00 Meclizine HCl (Antivert) 25 mg Q6H PRN PO DIZZINESS; Start 04/13/17 at 16:00 Mycophenolate Mofetil (Cellcept) 500 mg TID PO Last administered on 04/15/17 20:13; Admin Dose 500 MG; Start 04/13/17 at 21:00 Ondansetron HCl (Zofran Odt) 4 mg Q6H PRN ODT NAUSEA AND/OR VOMITING; Start at 16:00 Spironolactone (Aldactone) 50 mg DAILY PO Last administered on 04/14/17 08:53 ; Admin Dose 50 MG; Start 04/14/17 at 09:00 Lactulose (Enulose) 30 gm BID PO Last administered on 04/15/17 20:17; Admin Dose 30 GM; Start 04/13/17 at 21:00 Diagnostic Test (Pha) (Accu-Chek) 1 ea 02 XX ; Start 04/14/17 at 02:00 Miscellaneous Information 1 ea NOTE XX ; Start 04/13/17 at 16:30 Glucose (Glutose) 15 gm Q15M PRN PO DECREASED GLUCOSE; Start 04/13/17 at 16:30 Glucose (Glutose) 22.5 gm Q15M PRN PO DECREASED GLUCOSE; Start 04/13/17 at 16: 30 Dextrose (D50w Syringe) 25 ml Q15M PRN IV DECREASED GLUCOSE; Start 04/13/17 at 16:30 Dextrose (D50w Syringe) 50 ml Q15M PRN IV DECREASED GLUCOSE; Start 04/13/17 at 16:30 Glucagon (Glucagen) 1 mg Q15M PRN IM DECREASED GLUCOSE; Start 04/13/17 at 16:30 Glucose (Glutose) 15 gm Q15M PRN BUCCAL DECREASED GLUCOSE; Start 04/13/17 at 16 :30 Potassium Chloride (Klor-Con 20) 20 meq BID PO Last administered on 04/15/17 20:14; Admin Dose 20 MEQ; Start 04/14/17 at 09:00 Metoclopramide HCl (Reglan) 5 mg Q6 IV Last administered on 04/15/17 17:50; Admin Dose 5 MG; Start 04/15/17 at 00:00 LYNETTE SAINZ MD Apr 15, 2017 22:33
[2017-04-15] MEDS: HYDROCODONE/APAP (10/325) TAB PO PRN (23:13)
[2017-04-16] VITALS (9 sets, daily range): BP systolic 83–98; BP diastolic 52–59; PULSE 86–89; RESP 17–20
[2017-04-16] MEDS: ACCU-CHEK XX SCH (01:18)
[2017-04-16] MEDS: METOCLOPRAMIDE 10 MG INJ IV SCH ×4 (05:14→23:53)
[2017-04-16] MEDS: PANTOPRAZOLE 40 MG INJ IV SCH (05:14)
[2017-04-16 07:03] LABS: ALBUMIN 2.2 g/dl (3.3-4.9); ALBUMIN/GLOBULIN RATIO 0.78; BILIRUBIN,INDIRECT 0.4 mg/dl (0-1.1); BILIRUBIN,TOTAL 0.4 mg/dl (0.2-1.3); CALCIUM 8.2 mg/dl (8.4-10.2); CREATININE 0.76 mg/dl (0.44-1.00); POTASSIUM 4.4 mmol/L (3.5-5.1)
[2017-04-16] MEDS: INSULIN ASPART [NOVOLOG] 3 ML PEN SC SCH ×4 (08:00→20:14)
[2017-04-16] MEDS: DEXTROSE 5%-0.45% NACL 1,000 ML IV SCH ×2 (08:00→23:54)
[2017-04-16] MEDS: DICYCLOMINE 10 MG CAP PO SCH ×4 (08:42→20:16)
[2017-04-16] MEDS: LACTULOSE 30ML CUP PO SCH ×2 (08:43→20:16)
[2017-04-16] MEDS: POTASSIUM CHLORIDE (SR) 20 MEQ TAB PO SCH ×2 (08:43→20:15)
[2017-04-16] MEDS: APIXABAN 5 MG TABLET PO SCH ×2 (08:43→20:15)
[2017-04-16] MEDS: INSULIN GLARGINE [LANtus] 3 ML PEN SC SCH (08:44)
[2017-04-16] MEDS: MYCOPHENOLATE 250 MG CAP PO SCH ×3 (08:47→20:14)
[2017-04-16] MEDS: FUROSEMIDE 20 MG TAB PO SCH (08:53)
[2017-04-16] MEDS: SPIRONOLACTONE 50 MG TAB PO SCH (08:53)
--- NOTE | 2017-04-16 10:00 | PN ---
Date/Time of Note Date/Time of Note DATE: 04/16/17 TIME: 09:57 Assessment/Plan VTE Prophylaxis VTE Prophylaxis Intervention: ambulation Lines/Catheters IV Catheter Type (from Nrsg): Peripheral IV Assessment/Plan Chief Complaint/Hosp Course 1. abdominal pain, BETTER 2. Liver cirrhosis 3. dm type II controlled 4. hx dvt 5. Hypotension Problems: Assessment/Plan 1. continue current regime 2. paracentesis Subjective 24 Hr Interval Summary Constitutional: improved Gastrointestinal: pain Musculoskeletal: no complaints Exam/Review of Systems Vital Signs Vitals Vital Signs Date Time Temp Pulse Resp B/P Pulse Ox O2 Delivery O2 Flow Rate FiO2 04/16/17 07:59 98.1 90 17 92/54 95 04/15/17 14:20 Room Air Intake and Output 04/15/17 04/15/17 04/16/17 15:00 23:00 07:00 Intake Total 810 ml 680 ml Balance 810 ml 680 ml Exam Constitutional: alert Head: atraumatic, normocephalic Neck: supple Respiratory: clear to auscultation Cardiovascular: regular rate and rhythm Gastrointestinal: ascites, soft Extremities: normal pulses Neurological: STAFF CYTOTECHNOLOGIST II-XII intact Results Result Diagram: 04/14/17 0530 04/16/17 0556 Results 24 hrs Laboratory Tests Test 04/15/17 12:12 04/15/17 13:27 04/15/17 17:49 04/15/17 20:12 Bedside Glucose 234 H 193 229 H 216 Test 04/16/17 01:50 04/16/17 05:56 04/16/17 08:22 Bedside Glucose 155 98 Sodium Level 137 Potassium Level 4.4 Chloride Level 100 Carbon Dioxide Level 26 Anion Gap 15 Blood Urea Nitrogen 9 Creatinine 0.76 Glucose Level 105 Calcium Level 8.2 L Total Bilirubin 0.4 Direct Bilirubin 0.00 Indirect Bilirubin 0.4 Aspartate Amino Transf (AST/SGOT) 51 H Alanine Aminotransferase (ALT/SGPT) 29 Alkaline Phosphatase 124 H Total Protein 5.0 L Albumin 2.2 L Globulin 2.80 Albumin/Globulin Ratio 0.78 Medications Medications Current Medications Dextrose/Sodium Chloride (D5-1/2ns) 1,000 ml @ 20 mls/hr Q24H IV Last administered on 04/14/17t 20:03; Admin Dose 20 MLS/HR; Start 04/13/17 at 08:00 Ondansetron HCl (Zofran Inj) 4 mg Q6H PRN IV NAUSEA AND/OR VOMITING Last administered on 04/14/17 13:51; Admin Dose 4 MG; Start 04/13/17 at 08:00 Pantoprazole 40 mg 40 mg DAILY@06 IV Last administered on 04/16/17 05:14; Admin Dose 40 MG; Start 04/13/17 at 08:00 Ceftriaxone Sodium (Rocephin) 50 ml @ 100 mls/hr Q24H IVPB Last administered on 04/15/17 23:13; Admin Dose 100 MLS/HR; Start 04/14/17 at 00:00 Apixaban (Eliquis) 5 mg BID PO Last administered on 04/16/17 08:43; Admin Dose 5 MG; Start 04/13/17 at 21:00 Dicyclomine HCl (Bentyl) 20 mg QID PO Last administered on 04/16/17 08:42; Admin Dose 20 MG; Start 04/13/17 at 17:00 Furosemide (Lasix) 20 mg DAILY PO Last administered on 04/14/17 08:53; Admin Dose 20 MG; Start 04/14/17 at 09:00 Acetaminophen/ Hydrocodone Bitart ([place] (10/325)) 1 tab Q6H PRN PO PAIN Last administered on 04/15/17 23:13; Admin Dose 1 TAB; Start 04/13/17 at 16:00 Insulin Glargine (Lantus) 20 unit DAILY SC Last administered on 04/16/17 08:44 ; Admin Dose 20 UNIT; Start 04/14/17 at 09:00 Meclizine HCl (Antivert) 25 mg Q6H PRN PO DIZZINESS; Start 04/13/17 at 16:00 Mycophenolate Mofetil (Cellcept) 500 mg TID PO Last administered on 04/16/17 08:47; Admin Dose 500 MG; Start 04/13/17 at 21:00 Ondansetron HCl (Zofran Odt) 4 mg Q6H PRN ODT NAUSEA AND/OR VOMITING; Start at 16:00 Spironolactone (Aldactone) 50 mg DAILY PO Last administered on 04/14/17 08:53 ; Admin Dose 50 MG; Start 04/14/17 at 09:00 Lactulose (Enulose) 30 gm BID PO Last administered on 04/16/17 08:43; Admin Dose 30 GM; Start 04/13/17 at 21:00 Diagnostic Test (Pha) (Accu-Chek) 1 ea 02 XX ; Start 04/14/17 at 02:00 Miscellaneous Information 1 ea NOTE XX ; Start 04/13/17 at 16:30 Glucose (Glutose) 15 gm Q15M PRN PO DECREASED GLUCOSE; Start 04/13/17 at 16:30 Glucose (Glutose) 22.5 gm Q15M PRN PO DECREASED GLUCOSE; Start 04/13/17 at 16: 30 Dextrose (D50w Syringe) 25 ml Q15M PRN IV DECREASED GLUCOSE; Start 04/13/17 at 16:30 Dextrose (D50w Syringe) 50 ml Q15M PRN IV DECREASED GLUCOSE; Start 04/13/17 at 16:30 Glucagon (Glucagen) 1 mg Q15M PRN IM DECREASED GLUCOSE; Start 04/13/17 at 16:30 Glucose (Glutose) 15 gm Q15M PRN BUCCAL DECREASED GLUCOSE; Start 04/13/17 at 16 :30 Potassium Chloride (Klor-Con 20) 20 meq BID PO Last administered on 04/16/17 08:43; Admin Dose 20 MEQ; Start 04/14/17 at 09:00 Metoclopramide HCl (Reglan) 5 mg Q6 IV Last administered on 04/16/17 05:14; Admin Dose 5 MG; Start 04/15/17 at 00:00 FABI OSORIO Apr 16, 2017 09:59
[2017-04-16] MEDS ORDERED: SOD CHLORIDE 0.9% 500 ML IV ONE (11:00)
--- NOTE | 2017-04-16 17:06 | CONS ---
Date/Time of Note Date/Time of Note DATE: 04/16/17 TIME: 17:05 Assessment/Plan Assessment/Plan Chief Complaint/Hosp Course 61-year-old female with a history of autoimmune hepatitis cirrhosis of liver on immunosuppressive medication was originally taken to the emergency room at [facility] for abdominal pain nausea vomiting and change in mental status. Patient had a CAT scan done there was no change no acute pathology so patient to this facility for further management. As per the daughter patient has chronic nausea vomiting and on and off abdominal pain. No GI bleeding. She is more alert awake and lucid compared to yesterday. Problems: Additional Assessment/Plan Additional Assessment/Plan 1. Hepatic encephalopathy 2. 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 Ascites status post paracentesis 5. Diabetes mellitus 5. DVT. 6. Status post paracentesis for enough liters of fluid removed 7. Abdominal pain nausea improved on PPI and Reglan Plan Continue Reglan and PPI Lactulose and rifaximin Consultation Date/Type/Reason Admit Date/Time Apr 13, 2017 at 06:37 24 HR Interval Summary Constitutional: improved, no complaints Exam/Review of Systems Vital Signs Vitals Vital Signs Date Time Temp Pulse Resp B/P Pulse Ox O2 Delivery O2 Flow Rate FiO2 04/16/17 13:55 96/58 04/16/17 13:30 97.8 88 18 97 Room Air Intake and Output 04/15/17 04/15/17 04/16/17 15:00 23:00 07:00 Intake Total 810 ml 680 ml Balance 810 ml 680 ml Exam Constitutional: alert, oriented, well developed Psych: nl mood/affect, no complaints Head: atraumatic, normocephalic Eyes: EOMI, PERRL, nl conjunctiva, nl lids, nl sclera ENMT: nl external ears & nose, nl lips & teeth, nl nasal mucosa & septum Neck: non-tender, supple Respiratory: clear to auscultation, normal air movement Cardiovascular: nl pulses, regular rate and rhythm Gastrointestinal: nl liver, spleen, non-tender, soft Musculoskeletal: nl extremities to inspection, nl gait and stance Extremities: normal pulses Neurological: ELECTROPHYSIOLOGY NURSE PRACTITIONER II-XII intact, nl mental status, nl speech, nl strength Skin: nl turgor, No rash or lesions Lymph: nl lymph nodes Results Result Diagram: 04/14/17 0530 04/16/17 0556 Results 24 hrs Laboratory Tests Test 04/15/17 17:49 04/15/17 20:12 04/16/17 01:50 04/16/17 05:56 Bedside Glucose 229 H 216 155 Sodium Level 137 Potassium Level 4.4 Chloride Level 100 Carbon Dioxide Level 26 Anion Gap 15 Blood Urea Nitrogen 9 Creatinine 0.76 Glucose Level 105 Calcium Level 8.2 L Total Bilirubin 0.4 Direct Bilirubin 0.00 Indirect Bilirubin 0.4 Aspartate Amino Transf (AST/SGOT) 51 H Alanine Aminotransferase (ALT/SGPT) 29 Alkaline Phosphatase 124 H Total Protein 5.0 L Albumin 2.2 L Globulin 2.80 Albumin/Globulin Ratio 0.78 Test 04/16/17 08:22 04/16/17 12:04 Bedside Glucose 98 186 Medications Medications Current Medications Dextrose/Sodium Chloride (D5-1/2ns) 1,000 ml @ 20 mls/hr Q24H IV Last administered on 04/14/17 20:03; Admin Dose 20 MLS/HR; Start 04/13/17 at 08:00 Ondansetron HCl (Zofran Inj) 4 mg Q6H PRN IV NAUSEA AND/OR VOMITING Last administered on 04/14/17 13:51; Admin Dose 4 MG; Start 04/13/17 at 08:00 Pantoprazole 40 mg 40 mg DAILY@06 IV Last administered on 04/16/17 05:14; Admin Dose 40 MG; Start 04/13/17 at 08:00 Ceftriaxone Sodium (Rocephin) 50 ml @ 100 mls/hr Q24H IVPB Last administered on 04/15/17 23:13; Admin Dose 100 MLS/HR; Start 04/14/17 at 00:00 Apixaban (Eliquis) 5 mg BID PO Last administered on 04/16/17 08:43; Admin Dose 5 MG; Start 04/13/17 at 21:00 Dicyclomine HCl (Bentyl) 20 mg QID PO Last administered on 04/16/17 12:18; Admin Dose 20 MG; Start 04/13/17 at 17:00 Furosemide (Lasix) 20 mg DAILY PO Last administered on 04/14/17 08:53; Admin Dose 20 MG; Start 04/14/17 at 09:00 Acetaminophen/ Hydrocodone Bitart ([place] (10/325)) 1 tab Q6H PRN PO PAIN Last administered on 04/15/17 23:13; Admin Dose 1 TAB; Start 04/13/17 at 16:00 Insulin Glargine (Lantus) 20 unit DAILY SC Last administered on 04/16/17 08:44 ; Admin Dose 20 UNIT; Start 04/14/17 at 09:00 Meclizine HCl (Antivert) 25 mg Q6H PRN PO DIZZINESS; Start 04/13/17 at 16:00 Mycophenolate Mofetil (Cellcept) 500 mg TID PO Last administered on 04/16/17 12:18; Admin Dose 500 MG; Start 04/13/17 at 21:00 Ondansetron HCl (Zofran Odt) 4 mg Q6H PRN ODT NAUSEA AND/OR VOMITING; Start at 16:00 Spironolactone (Aldactone) 50 mg DAILY PO Last administered on 04/14/17 08:53 ; Admin Dose 50 MG; Start 04/14/17 at 09:00 Lactulose (Enulose) 30 gm BID PO Last administered on 04/16/17 08:43; Admin Dose 30 GM; Start 04/13/17 at 21:00 Diagnostic Test (Pha) (Accu-Chek) 1 ea 02 XX ; Start 04/14/17 at 02:00 Miscellaneous Information 1 ea NOTE XX ; Start 04/13/17 at 16:30 Glucose (Glutose) 15 gm Q15M PRN PO DECREASED GLUCOSE; Start 04/13/17 at 16:30 Glucose (Glutose) 22.5 gm Q15M PRN PO DECREASED GLUCOSE; Start 04/13/17 at 16: 30 Dextrose (D50w Syringe) 25 ml Q15M PRN IV DECREASED GLUCOSE; Start 04/13/17 at 16:30 Dextrose (D50w Syringe) 50 ml Q15M PRN IV DECREASED GLUCOSE; Start 04/13/17 at 16:30 Glucagon (Glucagen) 1 mg Q15M PRN IM DECREASED GLUCOSE; Start 04/13/17 at 16:30 Glucose (Glutose) 15 gm Q15M PRN BUCCAL DECREASED GLUCOSE; Start 04/13/17 at 16 :30 Potassium Chloride (Klor-Con 20) 20 meq BID PO Last administered on 04/16/17 08:43; Admin Dose 20 MEQ; Start 04/14/17 at 09:00 Metoclopramide HCl (Reglan) 5 mg Q6 IV Last administered on 04/16/17 12:18; Admin Dose 5 MG; Start 04/15/17 at 00:00 LAURA RAMIREZ MD Apr 16, 2017 17:06
[2017-04-16] MEDS: CEFTRIAXONE 1 GM/NS 50 ML IVPB SCH (23:54)
[2017-04-17] MEDS: ACCU-CHEK XX SCH (02:00)
[2017-04-17 02:19] VITALS: BP 88/52; RESP 20
[2017-04-17 04:03] VITALS: BP 90/60; PULSE 87
[2017-04-17] MEDS: PANTOPRAZOLE 40 MG INJ IV SCH (05:09)
[2017-04-17] MEDS: METOCLOPRAMIDE 10 MG INJ IV SCH ×3 (05:09→17:18)
[2017-04-17 07:40] LABS: CALCIUM 7.9 mg/dl (8.4-10.2); CREATININE 0.76 mg/dl (0.44-1.00); POTASSIUM 4.8 mmol/L (3.5-5.1)
[2017-04-17 08:00] VITALS: BP 91/55; RESP 19
[2017-04-17] MEDS: INSULIN ASPART [NOVOLOG] 3 ML PEN SC SCH ×4 (08:00→20:13)
[2017-04-17] MEDS: MYCOPHENOLATE 250 MG CAP PO SCH ×3 (08:45→20:10)
[2017-04-17] MEDS: SPIRONOLACTONE 50 MG TAB PO SCH (08:45)
[2017-04-17] MEDS: LACTULOSE 30ML CUP PO SCH ×2 (08:45→20:11)
[2017-04-17] MEDS: POTASSIUM CHLORIDE (SR) 20 MEQ TAB PO SCH ×2 (08:45→20:11)
[2017-04-17] MEDS: DICYCLOMINE 10 MG CAP PO SCH ×4 (08:45→20:11)
[2017-04-17] MEDS: APIXABAN 5 MG TABLET PO SCH ×2 (08:45→20:11)
[2017-04-17] MEDS: FUROSEMIDE 20 MG TAB PO SCH (08:47)
[2017-04-17] MEDS: INSULIN GLARGINE [LANtus] 3 ML PEN SC SCH (08:47)
--- NOTE | 2017-04-17 10:32 | PN ---
Date/Time of Note Date/Time of Note DATE: 04/17/17 TIME: 10:31 Assessment/Plan VTE Prophylaxis VTE Prophylaxis Intervention: SCD's Lines/Catheters IV Catheter Type (from Nrsg): Peripheral IV Assessment/Plan Chief Complaint/Hosp Course 1. abdominal pain, BETTER 2. Liver cirrhosis 3. dm type II controlled 4. hx dvt 5. Hypotension, resolved Problems: Assessment/Plan 1. Continue current regime 2. Pain control Subjective 24 Hr Interval Summary Constitutional: no complaints Gastrointestinal: pain Exam/Review of Systems Vital Signs Vitals Vital Signs Date Time Temp Pulse Resp B/P Pulse Ox O2 Delivery O2 Flow Rate FiO2 04/17/17 08:00 98.1 91 19 91/55 97 04/16/17 13:30 Room Air Intake and Output 04/16/17 04/16/17 04/17/17 15:00 23:00 07:00 Intake Total 500 ml 880 ml 560 ml Balance 500 ml 880 ml 560 ml Exam Constitutional: alert, oriented Neck: supple Respiratory: clear to auscultation Cardiovascular: regular rate and rhythm Gastrointestinal: soft, surgical scars Results Result Diagram: 04/14/17 0530 04/17/17 0610 Results 24 hrs Laboratory Tests Test 04/16/17 12:04 04/16/17 17:27 04/16/17 20:12 04/17/17 06:10 Bedside Glucose 186 160 162 Sodium Level 136 Potassium Level 4.8 Chloride Level 103 Carbon Dioxide Level 22 Anion Gap 16 Blood Urea Nitrogen 6 L Creatinine 0.76 Glucose Level 123 Calcium Level 7.9 L Test 04/17/17 07:53 Bedside Glucose 123 Medications Medications Current Medications Dextrose/Sodium Chloride (D5-1/2ns) 1,000 ml @ 20 mls/hr Q24H IV Last administered on 04/16/17 23:54; Admin Dose 20 MLS/HR; Start 04/13/17 at 08:00 Ondansetron HCl (Zofran Inj) 4 mg Q6H PRN IV NAUSEA AND/OR VOMITING Last administered on 04/14/17 13:51; Admin Dose 4 MG; Start 04/13/17 at 08:00 Pantoprazole 40 mg 40 mg DAILY@06 IV Last administered on 04/17/17 05:09; Admin Dose 40 MG; Start 04/13/17 at 08:00 Ceftriaxone Sodium (Rocephin) 50 ml @ 100 mls/hr Q24H IVPB Last administered on 04/16/17 23:54; Admin Dose 100 MLS/HR; Start 04/14/17 at 00:00 Apixaban (Eliquis) 5 mg BID PO Last administered on 04/17/17 08:45; Admin Dose 5 MG; Start 04/13/17 at 21:00 Dicyclomine HCl (Bentyl) 20 mg QID PO Last administered on 04/17/17 08:45; Admin Dose 20 MG; Start 04/13/17 at 17:00 Furosemide (Lasix) 20 mg DAILY PO Last administered on 04/14/17 08:53; Admin Dose 20 MG; Start 04/14/17 at 09:00 Acetaminophen/ Hydrocodone Bitart ([place] (10/325)) 1 tab Q6H PRN PO PAIN Last administered on 04/15/17 23:13; Admin Dose 1 TAB; Start 04/13/17 at 16:00 Insulin Glargine (Lantus) 20 unit DAILY SC Last administered on 04/17/17 08:47 ; Admin Dose 20 UNIT; Start 04/14/17 at 09:00 Meclizine HCl (Antivert) 25 mg Q6H PRN PO DIZZINESS; Start 04/13/17 at 16:00 Mycophenolate Mofetil (Cellcept) 500 mg TID PO Last administered on 04/17/17 08:45; Admin Dose 500 MG; Start 04/13/17 at 21:00 Ondansetron HCl (Zofran Odt) 4 mg Q6H PRN ODT NAUSEA AND/OR VOMITING; Start at 16:00 Spironolactone (Aldactone) 50 mg DAILY PO Last administered on 04/17/17 08:45 ; Admin Dose 50 MG; Start 04/14/17 at 09:00 Lactulose (Enulose) 30 gm BID PO Last administered on 04/17/17 08:45; Admin Dose 30 GM; Start 04/13/17 at 21:00 Diagnostic Test (Pha) (Accu-Chek) 1 ea 02 XX ; Start 04/14/17 at 02:00 Miscellaneous Information 1 ea NOTE XX ; Start 04/13/17 at 16:30 Glucose (Glutose) 15 gm Q15M PRN PO DECREASED GLUCOSE; Start 04/13/17 at 16:30 Glucose (Glutose) 22.5 gm Q15M PRN PO DECREASED GLUCOSE; Start 04/13/17 at 16: 30 Dextrose (D50w Syringe) 25 ml Q15M PRN IV DECREASED GLUCOSE; Start 04/13/17 at 16:30 Dextrose (D50w Syringe) 50 ml Q15M PRN IV DECREASED GLUCOSE; Start 04/13/17 at 16:30 Glucagon (Glucagen) 1 mg Q15M PRN IM DECREASED GLUCOSE; Start 04/13/17 at 16:30 Glucose (Glutose) 15 gm Q15M PRN BUCCAL DECREASED GLUCOSE; Start 04/13/17 at 16 :30 Potassium Chloride (Klor-Con 20) 20 meq BID PO Last administered on 04/17/17 08:45; Admin Dose 20 MEQ; Start 04/14/17 at 09:00 Metoclopramide HCl (Reglan) 5 mg Q6 IV Last administered on 04/17/17 05:09; Admin Dose 5 MG; Start 04/15/17 at 00:00 FABI OSORIO Apr 17, 2017 10:32
[2017-04-17] MEDS: HYDROCODONE/APAP (10/325) TAB PO PRN (11:13)
--- NOTE | 2017-04-17 13:27 | CONS ---
Date/Time of Note Date/Time of Note DATE: 04/17/17 TIME: 13:26 Assessment/Plan Assessment/Plan Chief Complaint/Hosp Course 61-year-old female with a history of autoimmune hepatitis cirrhosis of liver on immunosuppressive medication was originally taken to the emergency room at [facility] for abdominal pain nausea vomiting and change in mental status. Patient had a CAT scan done there was no change no acute pathology so patient to this facility for further management. As per the daughter patient has chronic nausea vomiting and on and off abdominal pain. No GI bleeding. She is more alert awake and lucid compared to yesterday. Problems: Additional Assessment/Plan Additional Assessment/Plan 1. Hepatic encephalopathy 2. 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 Ascites status post paracentesis 5. Diabetes mellitus 5. DVT. 6. Status post paracentesis for enough liters of fluid removed 7. Abdominal pain nausea improved on PPI and Reglan Plan Continue Reglan and PPI Lactulose and rifaximin Consultation Date/Type/Reason Admit Date/Time Apr 13, 2017 at 06:37 24 HR Interval Summary Free Text/Dictation Complaints of anxiety No abdominal pain no nausea no vomiting Exam/Review of Systems Vital Signs Vitals Vital Signs Date Time Temp Pulse Resp B/P Pulse Ox O2 Delivery O2 Flow Rate FiO2 04/17/17 08:00 98.1 91 19 91/55 97 04/16/17 13:30 Room Air Intake and Output 04/16/17 04/16/17 04/17/17 15:00 23:00 07:00 Intake Total 500 ml 880 ml 560 ml Balance 500 ml 880 ml 560 ml Exam Constitutional: alert, oriented, well developed Psych: nl mood/affect, no complaints Head: atraumatic, normocephalic Eyes: EOMI, PERRL, nl conjunctiva, nl lids, nl sclera ENMT: nl external ears & nose, nl lips & teeth, nl nasal mucosa & septum Neck: non-tender, supple Respiratory: clear to auscultation, normal air movement Cardiovascular: nl pulses, regular rate and rhythm Gastrointestinal: nl liver, spleen, non-tender, soft Musculoskeletal: nl extremities to inspection, nl gait and stance Extremities: normal pulses Neurological: COLOR MAKER II-XII intact, nl mental status, nl speech, nl strength Skin: nl turgor, No rash or lesions Lymph: nl lymph nodes Results Result Diagram: 04/14/17 0530 04/17/17 0610 Results 24 hrs Laboratory Tests Test 04/16/17 17:27 04/16/17 20:12 04/17/17 06:10 04/17/17 07:53 Bedside Glucose 160 162 123 Sodium Level 136 Potassium Level 4.8 Chloride Level 103 Carbon Dioxide Level 22 Anion Gap 16 Blood Urea Nitrogen 6 L Creatinine 0.76 Glucose Level 123 Calcium Level 7.9 L Test 04/17/17 11:11 Bedside Glucose 176 Medications Medications Current Medications Dextrose/Sodium Chloride (D5-1/2ns) 1,000 ml @ 20 mls/hr Q24H IV Last administered on 04/16/17 23:54; Admin Dose 20 MLS/HR; Start 04/13/17 at 08:00 Ondansetron HCl (Zofran Inj) 4 mg Q6H PRN IV NAUSEA AND/OR VOMITING Last administered on 04/14/17 13:51; Admin Dose 4 MG; Start 04/13/17 at 08:00 Pantoprazole 40 mg 40 mg DAILY@06 IV Last administered on 04/17/17 05:09; Admin Dose 40 MG; Start 04/13/17 at 08:00 Ceftriaxone Sodium (Rocephin) 50 ml @ 100 mls/hr Q24H IVPB Last administered on 04/16/17 23:54; Admin Dose 100 MLS/HR; Start 04/14/17 at 00:00 Apixaban (Eliquis) 5 mg BID PO Last administered on 04/17/17 08:45; Admin Dose 5 MG; Start 04/13/17 at 21:00 Dicyclomine HCl (Bentyl) 20 mg QID PO Last administered on 04/17/17 12:30; Admin Dose 20 MG; Start 04/13/17 at 17:00 Furosemide (Lasix) 20 mg DAILY PO Last administered on 04/14/17 08:53; Admin Dose 20 MG; Start 04/14/17 at 09:00 Acetaminophen/ Hydrocodone Bitart ([place] (10/325)) 1 tab Q6H PRN PO PAIN Last administered on 04/17/17 11:13; Admin Dose 1 TAB; Start 04/13/17 at 16:00 Insulin Glargine (Lantus) 20 unit DAILY SC Last administered on 04/17/17 08:47 ; Admin Dose 20 UNIT; Start 04/14/17 at 09:00 Meclizine HCl (Antivert) 25 mg Q6H PRN PO DIZZINESS; Start 04/13/17 at 16:00 Mycophenolate Mofetil (Cellcept) 500 mg TID PO Last administered on 04/17/17 12:30; Admin Dose 500 MG; Start 04/13/17 at 21:00 Ondansetron HCl (Zofran Odt) 4 mg Q6H PRN ODT NAUSEA AND/OR VOMITING; Start at 16:00 Spironolactone (Aldactone) 50 mg DAILY PO Last administered on 04/17/17 08:45 ; Admin Dose 50 MG; Start 04/14/17 at 09:00 Lactulose (Enulose) 30 gm BID PO Last administered on 04/17/17 08:45; Admin Dose 30 GM; Start 04/13/17 at 21:00 Diagnostic Test (Pha) (Accu-Chek) 1 ea 02 XX ; Start 04/14/17 at 02:00 Miscellaneous Information 1 ea NOTE XX ; Start 04/13/17 at 16:30 Glucose (Glutose) 15 gm Q15M PRN PO DECREASED GLUCOSE; Start 04/13/17 at 16:30 Glucose (Glutose) 22.5 gm Q15M PRN PO DECREASED GLUCOSE; Start 04/13/17 at 16: 30 Dextrose (D50w Syringe) 25 ml Q15M PRN IV DECREASED GLUCOSE; Start 04/13/17 at 16:30 Dextrose (D50w Syringe) 50 ml Q15M PRN IV DECREASED GLUCOSE; Start 04/13/17 at 16:30 Glucagon (Glucagen) 1 mg Q15M PRN IM DECREASED GLUCOSE; Start 04/13/17 at 16:30 Glucose (Glutose) 15 gm Q15M PRN BUCCAL DECREASED GLUCOSE; Start 04/13/17 at 16 :30 Potassium Chloride (Klor-Con 20) 20 meq BID PO Last administered on 04/17/17 08:45; Admin Dose 20 MEQ; Start 04/14/17 at 09:00 Metoclopramide HCl (Reglan) 5 mg Q6 IV Last administered on 04/17/17 11:13; Admin Dose 5 MG; Start 04/15/17 at 00:00 Alprazolam (Xanax) 0.25 mg Q6H PRN PO ANXIETY; Start 04/17/17 at 13:00 LAURA RAMIREZ MD Apr 17, 2017 13:27
[2017-04-17 14:00] VITALS: BP 88/58; RESP 21
[2017-04-17] MEDS: ALPRAZOLAM 0.25 MG TAB PO PRN (14:01)
[2017-04-17 20:06] VITALS: BP 86/53; RESP 16
[2017-04-18] MEDS: CEFTRIAXONE 1 GM/NS 50 ML IVPB SCH ×2 (00:07→23:38)
[2017-04-18] MEDS: METOCLOPRAMIDE 10 MG INJ IV SCH ×5 (00:07→23:37)
[2017-04-18] MEDS: ACCU-CHEK XX SCH (01:14)
[2017-04-18 02:23] VITALS: BP 93/60; RESP 18
[2017-04-18] MEDS: PANTOPRAZOLE 40 MG INJ IV SCH (05:05)
[2017-04-18 06:45] LABS: BASOPHILS % 0.8 % (0.0-2.0); EOSINOPHILS # 0.1 10^3/ul (0.0-0.5); EOSINOPHILS % 1.7 % (0.0-7.0); HEMATOCRIT 31.8 % (37.0-47.0); HEMOGLOBIN 10.7 g/dl (12.0-16.0); LYMPHOCYTES # 1.7 10^3/ul (0.8-2.9); LYMPHOCYTES % 32.4 % (15.0-51.0); MEAN CORPUSCULAR HEMOGLOBIN 32.6 pg (29.0-33.0); MEAN CORPUSCULAR HGB CONC 33.6 g/dl (32.0-37.0); MEAN PLATELET VOLUME 9.2 fl (7.4-10.4); MONOCYTE # 0.5 10^3/ul (0.3-0.9); NEUTROPHIL # 2.9 10^3/ul (1.6-7.5); NEUTROPHILS % 55.9 % (39.0-77.0); PLATELET COUNT 152 10^3/UL (140-415); RED BLOOD COUNT 3.28 10^6/ul (4.20-5.40); RED CELL DISTRIBUTION WIDTH 16.6 % (11.5-14.5); WHITE BLOOD COUNT 5.2 10^3/ul (4.8-10.8)
[2017-04-18 07:02] LABS: CALCIUM 8.6 mg/dl (8.4-10.2); CREATININE 0.67 mg/dl (0.44-1.00); POTASSIUM 4.4 mmol/L (3.5-5.1)
[2017-04-18 08:00] VITALS: BP 92/60; RESP 19
[2017-04-18] MEDS: DEXTROSE 5%-0.45% NACL 1,000 ML IV SCH (08:00)
[2017-04-18] MEDS: SPIRONOLACTONE 50 MG TAB PO SCH (09:00)
[2017-04-18] MEDS: LACTULOSE 30ML CUP PO SCH ×2 (09:00→20:51)
[2017-04-18] MEDS: FUROSEMIDE 20 MG TAB PO SCH (09:00)
[2017-04-18] MEDS: INSULIN ASPART [NOVOLOG] 3 ML PEN SC SCH ×4 (09:44→20:52)
[2017-04-18] MEDS: DICYCLOMINE 10 MG CAP PO SCH ×4 (09:45→20:49)
[2017-04-18] MEDS: MYCOPHENOLATE 250 MG CAP PO SCH ×3 (09:45→20:49)
[2017-04-18] MEDS: APIXABAN 5 MG TABLET PO SCH ×2 (09:45→20:50)
[2017-04-18] MEDS: POTASSIUM CHLORIDE (SR) 20 MEQ TAB PO SCH ×2 (09:45→20:50)
[2017-04-18] MEDS: INSULIN GLARGINE [LANtus] 3 ML PEN SC SCH (09:51)
--- NOTE | 2017-04-18 11:18 | PN ---
Date/Time of Note Date/Time of Note DATE: 04/18/17 TIME: 11:17 Assessment/Plan VTE Prophylaxis VTE Prophylaxis Intervention: ambulation Lines/Catheters IV Catheter Type (from Nrs): Peripheral IV Assessment/Plan Chief Complaint/Hosp Course 1. abdominal pain, BETTER 2. Liver cirrhosis 3. dm type II controlled 4. hx dvt 5. Hypotension, resolved 6. Anxiety Problems: Assessment/Plan 1. Continue current regime 2. Possible discharge Subjective 24 Hr Interval Summary Constitutional: improved, no complaints Exam/Review of Systems Vital Signs Vitals Vital Signs Date Time Temp Pulse Resp B/P Pulse Ox O2 Delivery O2 Flow Rate FiO2 04/18/17 08:00 97.9 90 19 92/60 95 04/16/17 13:30 Room Air Intake and Output 04/17/17 04/17/17 04/18/17 15:00 23:00 07:00 Intake Total 670 ml 800 ml Balance 670 ml 800 ml Exam Constitutional: alert, oriented Cardiovascular: regular rate and rhythm Gastrointestinal: soft Results Result Diagram: 04/18/17 0511 04/18/17 0511 Results 24 hrs Laboratory Tests Test 04/17/17 17:08 04/17/17 20:09 04/18/17 02:08 04/18/17 05:11 Bedside Glucose 196 206 154 White Blood Count 5.2 # Red Blood Count 3.28 L Hemoglobin 10.7 L Hematocrit 31.8 L Mean Corpuscular Volume 97.0 Mean Corpuscular Hemoglobin 32.6 Mean Corpuscular Hemoglobin Concent 33.6 Red Cell Distribution Width 16.6 H Platelet Count 152 Mean Platelet Volume 9.2 Neutrophils % 55.9 Lymphocytes % 32.4 Monocytes % 9.0 Eosinophils % 1.7 Basophils % 0.8 Nucleated Red Blood Cells % 0.0 Neutrophils # 2.9 Lymphocytes # 1.7 Monocytes # 0.5 Eosinophils # 0.1 Basophils # 0.0 Nucleated Red Blood Cells # 0.0 Sodium Level 137 Potassium Level 4.4 Chloride Level 101 Carbon Dioxide Level 23 Anion Gap 17 H Blood Urea Nitrogen 6 L Creatinine 0.67 Glucose Level 112 Calcium Level 8.6 Test 04/18/17 08:31 04/18/17 09:49 Bedside Glucose 103 151 Medications Medications Current Medications Dextrose/Sodium Chloride (D5-1/2ns) 1,000 ml @ 20 mls/hr Q24H IV Last administered on 04/16/17 23:54; Admin Dose 20 MLS/HR; Start 04/13/17 at 08:00 Ondansetron HCl (Zofran Inj) 4 mg Q6H PRN IV NAUSEA AND/OR VOMITING Last administered on 04/14/17 13:51; Admin Dose 4 MG; Start 04/13/17 at 08:00 Pantoprazole 40 mg 40 mg DAILY@06 IV Last administered on 04/18/17 05:05; Admin Dose 40 MG; Start 04/13/17 at 08:00 Ceftriaxone Sodium (Rocephin) 50 ml @ 100 mls/hr Q24H IVPB Last administered on 04/18/17 00:07; Admin Dose 100 MLS/HR; Start 04/14/17 at 00:00 Apixaban (Eliquis) 5 mg BID PO Last administered on 04/18/17 09:45; Admin Dose 5 MG; Start 04/13/17 at 21:00 Dicyclomine HCl (Bentyl) 20 mg QID PO Last administered on 04/18/17 09:45; Admin Dose 20 MG; Start 04/13/17 at 17:00 Furosemide (Lasix) 20 mg DAILY PO Last administered on 04/14/17 08:53; Admin Dose 20 MG; Start 04/14/17 at 09:00 Acetaminophen/ Hydrocodone Bitart ([place] (10/325)) 1 tab Q6H PRN PO PAIN Last administered on 04/17/17 11:13; Admin Dose 1 TAB; Start 04/13/17 at 16:00 Insulin Glargine (Lantus) 20 unit DAILY SC Last administered on 04/18/17 09:51 ; Admin Dose 20 UNIT; Start 04/14/17 at 09:00 Meclizine HCl (Antivert) 25 mg Q6H PRN PO DIZZINESS; Start 04/13/17 at 16:00 Mycophenolate Mofetil (Cellcept) 500 mg TID PO Last administered on 04/18/17 09:45; Admin Dose 500 MG; Start 04/13/17 at 21:00 Ondansetron HCl (Zofran Odt) 4 mg Q6H PRN ODT NAUSEA AND/OR VOMITING; Start at 16:00 Spironolactone (Aldactone) 50 mg DAILY PO Last administered on 04/17/17 08:45 ; Admin Dose 50 MG; Start 04/14/17 at 09:00 Lactulose (Enulose) 30 gm BID PO Last administered on 04/17/17 20:11; Admin Dose 30 GM; Start 04/13/17 at 21:00 Diagnostic Test (Pha) (Accu-Chek) 1 ea 02 XX ; Start 04/14/17 at 02:00 Miscellaneous Information 1 ea NOTE XX ; Start 04/13/17 at 16:30 Glucose (Glutose) 15 gm Q15M PRN PO DECREASED GLUCOSE; Start 04/13/17 at 16:30 Glucose (Glutose) 22.5 gm Q15M PRN PO DECREASED GLUCOSE; Start 04/13/17 at 16: 30 Dextrose (D50w Syringe) 25 ml Q15M PRN IV DECREASED GLUCOSE; Start 04/13/17 at 16:30 Dextrose (D50w Syringe) 50 ml Q15M PRN IV DECREASED GLUCOSE; Start 04/13/17 at 16:30 Glucagon (Glucagen) 1 mg Q15M PRN IM DECREASED GLUCOSE; Start 04/13/17 at 16:30 Glucose (Glutose) 15 gm Q15M PRN BUCCAL DECREASED GLUCOSE; Start 04/13/17 at 16 :30 Potassium Chloride (Klor-Con 20) 20 meq BID PO Last administered on 04/18/17 09:45; Admin Dose 20 MEQ; Start 04/14/17 at 09:00 Metoclopramide HCl (Reglan) 5 mg Q6 IV Last administered on 04/18/17 05:05; Admin Dose 5 MG; Start 04/15/17 at 00:00 Alprazolam (Xanax) 0.25 mg Q6H PRN PO ANXIETY Last administered on 04/17/17 14 :01; Admin Dose 0.25 MG; Start 04/17/17 at 13:00 FABI OSORIO Apr 18, 2017 11:18
[2017-04-18 14:00] VITALS: BP 93/57; RESP 19
--- NOTE | 2017-04-18 14:03 | CONS ---
Date/Time of Note Date/Time of Note DATE: 04/18/17 TIME: 14:02 Assessment/Plan Assessment/Plan Chief Complaint/Hosp Course 61-year-old female with a history of autoimmune hepatitis cirrhosis of liver on immunosuppressive medication was originally taken to the emergency room at [facility] for abdominal pain nausea vomiting and change in mental status. Patient had a CAT scan done there was no change no acute pathology so patient to this facility for further management. As per the daughter patient has chronic nausea vomiting and on and off abdominal pain. No GI bleeding. She is more alert awake and lucid compared to yesterday. Problems: Additional Assessment/Plan Additional Assessment/Plan 1. Hepatic encephalopathy 2. 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 Ascites status post paracentesis 5. Diabetes mellitus 5. DVT. 6. Status post paracentesis for enough liters of fluid removed 7. Abdominal pain nausea improved on PPI and Reglan Plan Continue Reglan and PPI Lactulose and rifaximin Consultation Date/Type/Reason Admit Date/Time Apr 13, 2017 at 06:37 24 HR Interval Summary Constitutional: improved, no complaints Exam/Review of Systems Vital Signs Vitals Vital Signs Date Time Temp Pulse Resp B/P Pulse Ox O2 Delivery O2 Flow Rate FiO2 04/18/17 08:00 97.9 90 19 92/60 95 04/16/17 13:30 Room Air Intake and Output 04/17/17 04/17/17 04/18/17 15:00 23:00 07:00 Intake Total 670 ml 800 ml Balance 670 ml 800 ml Exam Constitutional: alert, oriented, well developed Psych: nl mood/affect, no complaints Head: atraumatic, normocephalic Eyes: EOMI, PERRL, nl conjunctiva, nl lids, nl sclera ENMT: nl external ears & nose, nl lips & teeth, nl nasal mucosa & septum Neck: non-tender, supple Respiratory: clear to auscultation, normal air movement Cardiovascular: nl pulses, regular rate and rhythm Gastrointestinal: nl liver, spleen, non-tender, soft Musculoskeletal: nl extremities to inspection, nl gait and stance Extremities: normal pulses Neurological: CIVIL DRAFTER II-XII intact, nl mental status, nl speech, nl strength Skin: nl turgor, No rash or lesions Lymph: nl lymph nodes Results Result Diagram: 04/18/1751004/18/17 0511 Results 24 hrs Laboratory Tests Test 04/17/17 17:08 04/17/17 20:09 04/18/17 02:08 04/18/17 05:11 Bedside Glucose 196 206 154 White Blood Count 5.2 # Red Blood Count 3.28 L Hemoglobin 10.7 L Hematocrit 31.8 L Mean Corpuscular Volume 97.0 Mean Corpuscular Hemoglobin 32.6 Mean Corpuscular Hemoglobin Concent 33.6 Red Cell Distribution Width 16.6 H Platelet Count 152 Mean Platelet Volume 9.2 Neutrophils % 55.9 Lymphocytes % 32.4 Monocytes % 9.0 Eosinophils % 1.7 Basophils % 0.8 Nucleated Red Blood Cells % 0.0 Neutrophils # 2.9 Lymphocytes # 1.7 Monocytes # 0.5 Eosinophils # 0.1 Basophils # 0.0 Nucleated Red Blood Cells # 0.0 Sodium Level 137 Potassium Level 4.4 Chloride Level 101 Carbon Dioxide Level 23 Anion Gap 17 H Blood Urea Nitrogen 6 L Creatinine 0.67 Glucose Level 112 Calcium Level 8.6 Test 04/18/17 08:31 04/18/17 09:49 04/18/17 11:53 Bedside Glucose 103 151 159 Medications Medications Current Medications Dextrose/Sodium Chloride (D5-1/2ns) 1,000 ml @ 20 mls/hr Q24H IV Last administered on 04/16/17 23:54; Admin Dose 20 MLS/HR; Start 04/13/17 at 08:00 Ondansetron HCl (Zofran Inj) 4 mg Q6H PRN IV NAUSEA AND/OR VOMITING Last administered on 04/14/17 13:51; Admin Dose 4 MG; Start 04/13/17 at 08:00 Pantoprazole 40 mg 40 mg DAILY@06 IV Last administered on 04/18/17 05:05; Admin Dose 40 MG; Start 04/13/17 at 08:00 Ceftriaxone Sodium (Rocephin) 50 ml @ 100 mls/hr Q24H IVPB Last administered on 04/18/17 00:07; Admin Dose 100 MLS/HR; Start 04/14/17 at 00:00 Apixaban (Eliquis) 5 mg BID PO Last administered on 04/18/17 09:45; Admin Dose 5 MG; Start 04/13/17 at 21:00 Dicyclomine HCl (Bentyl) 20 mg QID PO Last administered on 04/18/17 13:18; Admin Dose 20 MG; Start 04/13/17 at 17:00 Furosemide (Lasix) 20 mg DAILY PO Last administered on 04/14/17 08:53; Admin Dose 20 MG; Start 04/14/17 at 09:00 Acetaminophen/ Hydrocodone Bitart ([place] (10/325)) 1 tab Q6H PRN PO PAIN Last administered on 04/17/17 11:13; Admin Dose 1 TAB; Start 04/13/17 at 16:00 Insulin Glargine (Lantus) 20 unit DAILY SC Last administered on 04/18/17 09:51 ; Admin Dose 20 UNIT; Start 04/14/17 at 09:00 Meclizine HCl (Antivert) 25 mg Q6H PRN PO DIZZINESS; Start 04/13/17 at 16:00 Mycophenolate Mofetil (Cellcept) 500 mg TID PO Last administered on 04/18/17 13:18; Admin Dose 500 MG; Start 04/13/17 at 21:00 Ondansetron HCl (Zofran Odt) 4 mg Q6H PRN ODT NAUSEA AND/OR VOMITING; Start at 16:00 Spironolactone (Aldactone) 50 mg DAILY PO Last administered on 04/17/17 08:45 ; Admin Dose 50 MG; Start 04/14/17 at 09:00 Lactulose (Enulose) 30 gm BID PO Last administered on 04/17/17 20:11; Admin Dose 30 GM; Start 04/13/17 at 21:00 Diagnostic Test (Pha) (Accu-Chek) 1 ea 02 XX ; Start 04/14/17 at 02:00 Miscellaneous Information 1 ea NOTE XX ; Start 04/13/17 at 16:30 Glucose (Glutose) 15 gm Q15M PRN PO DECREASED GLUCOSE; Start 04/13/17 at 16:30 Glucose (Glutose) 22.5 gm Q15M PRN PO DECREASED GLUCOSE; Start 04/13/17 at 16: 30 Dextrose (D50w Syringe) 25 ml Q15M PRN IV DECREASED GLUCOSE; Start 04/13/17 at 16:30 Dextrose (D50w Syringe) 50 ml Q15M PRN IV DECREASED GLUCOSE; Start 04/13/17 at 16:30 Glucagon (Glucagen) 1 mg Q15M PRN IM DECREASED GLUCOSE; Start 04/13/17 at 16:30 Glucose (Glutose) 15 gm Q15M PRN BUCCAL DECREASED GLUCOSE; Start 04/13/17 at 16 :30 Potassium Chloride (Klor-Con 20) 20 meq BID PO Last administered on 04/18/17 09:45; Admin Dose 20 MEQ; Start 04/14/17 at 09:00 Metoclopramide HCl (Reglan) 5 mg Q6 IV Last administered on 04/18/17 11:58; Admin Dose 5 MG; Start 04/15/17 at 00:00 Alprazolam (Xanax) 0.25 mg Q6H PRN PO ANXIETY Last administered on 04/17/17 14 :01; Admin Dose 0.25 MG; Start 04/17/17 at 13:00 LAURA RAMIREZ MD Apr 18, 2017 14:03
[2017-04-18 20:33] VITALS: BP 90/52; RESP 16
[2017-04-19] MEDS: ALPRAZOLAM 0.25 MG TAB PO PRN (00:09)
[2017-04-19] MEDS: ACCU-CHEK XX SCH (02:06)
[2017-04-19 02:53] VITALS: BP 104/65; RESP 16
[2017-04-19] MEDS: DEXTROSE 5%-0.45% NACL 1,000 ML IV SCH (03:43)
[2017-04-19] MEDS: PANTOPRAZOLE 40 MG INJ IV SCH (05:12)
[2017-04-19] MEDS: METOCLOPRAMIDE 10 MG INJ IV SCH ×3 (05:12→17:33)
[2017-04-19 07:45] VITALS: BP 86/54; RESP 18
[2017-04-19] MEDS: INSULIN ASPART [NOVOLOG] 3 ML PEN SC SCH ×3 (08:00→17:28)
[2017-04-19 08:15] VITALS: BP 90/57; PULSE 91
[2017-04-19] MEDS ORDERED: LIDOCAINE 1% (MPF) 5 ML VIAL ONE (08:46)
[2017-04-19] MEDS: FUROSEMIDE 20 MG TAB PO SCH (09:00)
[2017-04-19] MEDS: SPIRONOLACTONE 50 MG TAB PO SCH (09:00)
[2017-04-19] MEDS: APIXABAN 5 MG TABLET PO SCH (09:19)
[2017-04-19] MEDS: MYCOPHENOLATE 250 MG CAP PO SCH ×2 (09:19→13:10)
[2017-04-19] MEDS: LACTULOSE 30ML CUP PO SCH (09:19)
[2017-04-19] MEDS: DICYCLOMINE 10 MG CAP PO SCH ×3 (09:20→17:33)
[2017-04-19] MEDS: POTASSIUM CHLORIDE (SR) 20 MEQ TAB PO SCH (09:20)
[2017-04-19] MEDS: INSULIN GLARGINE [LANtus] 3 ML PEN SC SCH (09:21)
[2017-04-19] MEDS: HYDROCODONE/APAP (10/325) TAB PO PRN (09:28)
[2017-04-19 14:22] VITALS: BP 87/53; RESP 16
--- NOTE | 2017-04-19 14:22 | RADRPT ---
PROCEDURE: Ultrasound guided paracentesis. CLINICAL INDICATION: Ascites and shortness of breath. COMPARISON: 04/15/2017 TECHNIQUE: The risks, benefits, and alternatives were explained to the patient and/or the patient's family, inc luding but not limited to bleeding, infection, pain, visceral or vascular damage, shock, and . The patient and/or the patient's family understood the risks and the alternatives and wished to pro ceed with the procedure. Informed written consent was obtained. A procedural time out was performed . The patient's name, date of , and procedure to be performed were verified. Utilizing ultrasound guidance, optimal location for entry to the peritoneal cavity was ascertained. The overlying skin was prepped and draped in the usual sterile fashion. Approximately 10 ml of 1% Xylocaine was injected locally for pain control. Using ultrasound guidance, an 8 [place] catheter wa s introduced into the peritoneal cavity in the right lower quadrant without difficulty. FINDINGS: Initial images demonstrate ascites. Approximately 1.6 liters of serous fluid was aspirated and disc arded. The patient tolerated the procedure well without complication. IMPRESSION: 1. Successful ultrasound-guided paracentesis. RPTAT: QQ .Robbie Geller MD, Date Time Electronically viewed and signed by .Robbie Geller MD, on 04/19/2017 14:22 .R/
--- NOTE | 2017-04-19 16:54 | CONS ---
Date/Time of Note Date/Time of Note DATE: 04/19/17 TIME: 16:54 Assessment/Plan Assessment/Plan Chief Complaint/Hosp Course 61-year-old female with a history of autoimmune hepatitis cirrhosis of liver on immunosuppressive medication was originally taken to the emergency room at [facility] for abdominal pain nausea vomiting and change in mental status. Patient had a CAT scan done there was no change no acute pathology so patient to this facility for further management. As per the daughter patient has chronic nausea vomiting and on and off abdominal pain. No GI bleeding. She is more alert awake and lucid compared to yesterday. Problems: Additional Assessment/Plan 1. Hepatic encephalopathy 2. 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 Ascites status post paracentesis 5. Diabetes mellitus 5. DVT. 6. Status post paracentesis for enough liters of fluid removed 7. Abdominal pain nausea improved on PPI and Reglan Plan Continue Reglan and PPI Lactulose and rifaximin Consultation Date/Type/Reason Admit Date/Time Apr 13, 2017 at 06:37 24 HR Interval Summary Constitutional: improved Exam/Review of Systems Vital Signs Vitals Vital Signs Date Time Temp Pulse Resp B/P Pulse Ox O2 Delivery O2 Flow Rate FiO2 04/19/17 14:22 97.8 87 16 87/53 98 04/16/17 13:30 Room Air Intake and Output 04/18/17 04/18/17 04/19/17 15:00 23:00 07:00 Intake Total 1000 ml 990 ml Balance 1000 ml 990 ml Exam Constitutional: alert, oriented, well developed Psych: nl mood/affect, no complaints Head: atraumatic, normocephalic Eyes: EOMI, PERRL, nl conjunctiva, nl lids, nl sclera ENMT: nl external ears & nose, nl lips & teeth, nl nasal mucosa & septum Neck: non-tender, supple Respiratory: clear to auscultation, normal air movement Cardiovascular: nl pulses, regular rate and rhythm Gastrointestinal: nl liver, spleen, non-tender, soft Musculoskeletal: nl extremities to inspection, nl gait and stance Extremities: normal pulses Neurological: JUNIOR 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 II-XII intact, nl mental status, nl speech, nl strength Skin: nl turgor, No rash or lesions Lymph: nl lymph nodes Results Result Diagram: 04/18/1711 04/18/17510 Results 24 hrs Laboratory Tests Test 04/18/17 17:11 04/18/17 20:49 04/19/17 02:05 04/19/17 08:00 Bedside Glucose 156 189 162 118 Test 04/19/17 11:09 04/19/17 12:17 Bedside Glucose 170 201 Medications Medications Current Medications Dextrose/Sodium Chloride (D5-1/2ns) 1,000 ml @ 20 mls/hr Q24H IV Last administered on 04/19/17 03:43; Admin Dose 20 MLS/HR; Start 04/13/17 at 08:00 Ondansetron HCl (Zofran Inj) 4 mg Q6H PRN IV NAUSEA AND/OR VOMITING Last administered on 04/14/17 13:51; Admin Dose 4 MG; Start 04/13/17 at 08:00 Pantoprazole 40 mg 40 mg DAILY@06 IV Last administered on 04/19/17 05:12; Admin Dose 40 MG; Start 04/13/17 at 08:00 Ceftriaxone Sodium (Rocephin) 50 ml @ 100 mls/hr Q24H IVPB Last administered on 04/18/17 23:38; Admin Dose 100 MLS/HR; Start 04/14/17 at 00:00 Apixaban (Eliquis) 5 mg BID PO Last administered on 04/19/17 09:19; Admin Dose 5 MG; Start 04/13/17 at 21:00 Dicyclomine HCl (Bentyl) 20 mg QID PO Last administered on 04/19/17 13:17; Admin Dose 20 MG; Start 04/13/17 at 17:00 Furosemide (Lasix) 20 mg DAILY PO Last administered on 04/14/17 08:53; Admin Dose 20 MG; Start 04/14/17 at 09:00 Acetaminophen/ Hydrocodone Bitart ([place] (10/325)) 1 tab Q6H PRN PO PAIN Last administered on 04/19/17 09:28; Admin Dose 1 TAB; Start 04/13/17 at 16:00 Insulin Glargine (Lantus) 20 unit DAILY SC Last administered on 04/19/17 09:21 ; Admin Dose 20 UNIT; Start 04/14/17 at 09:00 Meclizine HCl (Antivert) 25 mg Q6H PRN PO DIZZINESS; Start 04/13/17 at 16:00 Mycophenolate Mofetil (Cellcept) 500 mg TID PO Last administered on 04/19/17 13:10; Admin Dose 500 MG; Start 04/13/17 at 21:00 Ondansetron HCl (Zofran Odt) 4 mg Q6H PRN ODT NAUSEA AND/OR VOMITING; Start at 16:00 Spironolactone (Aldactone) 50 mg DAILY PO Last administered on 04/17/17 08:45 ; Admin Dose 50 MG; Start 04/14/17 at 09:00 Lactulose (Enulose) 30 gm BID PO Last administered on 04/19/17 09:19; Admin Dose 30 GM; Start 04/13/17 at 21:00 Diagnostic Test (Pha) (Accu-Chek) 1 ea 02 XX Last administered on 04/19/17 02: 06; Admin Dose 1 EA; Start 04/14/17 at 02:00 Miscellaneous Information 1 ea NOTE XX ; Start 04/13/17 at 16:30 Glucose (Glutose) 15 gm Q15M PRN PO DECREASED GLUCOSE; Start 04/13/17 at 16:30 Glucose (Glutose) 22.5 gm Q15M PRN PO DECREASED GLUCOSE; Start 04/13/17 at 16: 30 Dextrose (D50w Syringe) 25 ml Q15M PRN IV DECREASED GLUCOSE; Start 04/13/17 at 16:30 Dextrose (D50w Syringe) 50 ml Q15M PRN IV DECREASED GLUCOSE; Start 04/13/17 at 16:30 Glucagon (Glucagen) 1 mg Q15M PRN IM DECREASED GLUCOSE; Start 04/13/17 at 16:30 Glucose (Glutose) 15 gm Q15M PRN BUCCAL DECREASED GLUCOSE; Start 04/13/17 at 16 :30 Potassium Chloride (Klor-Con 20) 20 meq BID PO Last administered on 04/19/17 09:20; Admin Dose 20 MEQ; Start 04/14/17 at 09:00 Metoclopramide HCl (Reglan) 5 mg Q6 IV Last administered on 04/19/17 13:10; Admin Dose 5 MG; Start 04/15/17 at 00:00 Alprazolam (Xanax) 0.25 mg Q6H PRN PO ANXIETY Last administered on 04/19/17 00 :09; Admin Dose 0.25 MG; Start 04/17/17 at 13:00 LAURA RAMIREZ MD Apr 19, 2017 16:54
--- NOTE | 2017-04-19 18:09 | PDOCDIS ---
Discharge Instructions CONDITION Patient Condition: Stable HOME CARE INSTRUCTIONS: Special Diet: 1800 ADA ACTIVITY: Activity Restrictions: Slowly Increase Activity FOLLOW UP/APPOINTMENTS Follow-up Plan f/u own pcp [address] thompson at at [facility] 1 wk LYNETTE SAINZ MD Apr 19, 2017 18:09
[2017-04-19] MEDS ORDERED: POTA20TA15 PO (18:11)
--- NOTE | 2017-04-19 18:37 | PN ---
Date/Time of Note Date/Time of Note DATE: 04/19/17 TIME: 18:36 Assessment/Plan VTE Prophylaxis VTE Prophylaxis Intervention: other Lines/Catheters IV Catheter Type (from Nrsg): Peripheral IV Assessment/Plan Chief Complaint/Hosp Course abd pain BETTER cirrhosis S/P PARACENTESIS dm hx dvt plan per order paracentesis DONE HOME Problems: Subjective 24 Hr Interval Summary Cardiovascular: no complaints Gastrointestinal: no complaints, other (S/P PARACENTESIS) Exam/Review of Systems Vital Signs Vitals Vital Signs Date Time Temp Pulse Resp B/P Pulse Ox O2 Delivery O2 Flow Rate FiO2 04/19/17 14:22 97.8 87 16 87/53 98 04/16/17 13:30 Room Air Intake and Output 04/18/17 04/18/17 04/19/17 15:00 23:00 07:00 Intake Total 1000 ml 990 ml Balance 1000 ml 990 ml Exam Neck: supple Respiratory: clear to auscultation Cardiovascular: regular rate and rhythm Gastrointestinal: ascites (+), soft Results Result Diagram: 04/18/1751004/18/17 0511 Results 24 hrs Laboratory Tests Test 04/18/17 20:49 04/19/17 02:05 04/19/17 08:00 04/19/17 11:09 Bedside Glucose 189 162 118 170 Test 04/19/17 12:17 04/19/17 17:23 Bedside Glucose 201 190 Medications Medications Current Medications Dextrose/Sodium Chloride (D5-1/2ns) 1,000 ml @ 20 mls/hr Q24H IV Last administered on 04/19/17 03:43; Admin Dose 20 MLS/HR; Start 04/13/17 at 08:00 Ondansetron HCl (Zofran Inj) 4 mg Q6H PRN IV NAUSEA AND/OR VOMITING Last administered on 04/14/17 13:51; Admin Dose 4 MG; Start 04/13/17 at 08:00 Pantoprazole 40 mg 40 mg DAILY@06 IV Last administered on 04/19/17 05:12; Admin Dose 40 MG; Start 04/13/17 at 08:00 Ceftriaxone Sodium (Rocephin) 50 ml @ 100 mls/hr Q24H IVPB Last administered on 04/18/17 23:38; Admin Dose 100 MLS/HR; Start 04/14/17 at 00:00 Apixaban (Eliquis) 5 mg BID PO Last administered on 04/19/17 09:19; Admin Dose 5 MG; Start 04/13/17 at 21:00 Dicyclomine HCl (Bentyl) 20 mg QID PO Last administered on 04/19/17 17:33; Admin Dose 20 MG; Start 04/13/17 at 17:00 Furosemide (Lasix) 20 mg DAILY PO Last administered on 04/14/17 08:53; Admin Dose 20 MG; Start 04/14/17 at 09:00 Acetaminophen/ Hydrocodone Bitart ([place] (10/325)) 1 tab Q6H PRN PO PAIN Last administered on 04/19/17 09:28; Admin Dose 1 TAB; Start 04/13/17 at 16:00 Insulin Glargine (Lantus) 20 unit DAILY SC Last administered on 04/19/17 09:21 ; Admin Dose 20 UNIT; Start 04/14/17 at 09:00 Meclizine HCl (Antivert) 25 mg Q6H PRN PO DIZZINESS; Start 04/13/17 at 16:00 Mycophenolate Mofetil (Cellcept) 500 mg TID PO Last administered on 04/19/17 13:10; Admin Dose 500 MG; Start 04/13/17 at 21:00 Ondansetron HCl (Zofran Odt) 4 mg Q6H PRN ODT NAUSEA AND/OR VOMITING; Start at 16:00 Spironolactone (Aldactone) 50 mg DAILY PO Last administered on 04/17/17 08:45 ; Admin Dose 50 MG; Start 04/14/17 at 09:00 Lactulose (Enulose) 30 gm BID PO Last administered on 04/19/17 09:19; Admin Dose 30 GM; Start 04/13/17 at 21:00 Diagnostic Test (Pha) (Accu-Chek) 1 ea 02 XX Last administered on 04/19/17 02: 06; Admin Dose 1 EA; Start 04/14/17 at 02:00 Miscellaneous Information 1 ea NOTE XX ; Start 04/13/17 at 16:30 Glucose (Glutose) 15 gm Q15M PRN PO DECREASED GLUCOSE; Start 04/13/17 at 16:30 Glucose (Glutose) 22.5 gm Q15M PRN PO DECREASED GLUCOSE; Start 04/13/17 at 16: 30 Dextrose (D50w Syringe) 25 ml Q15M PRN IV DECREASED GLUCOSE; Start 04/13/17 at 16:30 Dextrose (D50w Syringe) 50 ml Q15M PRN IV DECREASED GLUCOSE; Start 04/13/17 at 16:30 Glucagon (Glucagen) 1 mg Q15M PRN IM DECREASED GLUCOSE; Start 04/13/17 at 16:30 Glucose (Glutose) 15 gm Q15M PRN BUCCAL DECREASED GLUCOSE; Start 04/13/17 at 16 :30 Potassium Chloride (Klor-Con 20) 20 meq BID PO Last administered on 04/19/17 09:20; Admin Dose 20 MEQ; Start 04/14/17 at 09:00 Metoclopramide HCl (Reglan) 5 mg Q6 IV Last administered on 04/19/17 17:33; Admin Dose 5 MG; Start 04/15/17 at 00:00 Alprazolam (Xanax) 0.25 mg Q6H PRN PO ANXIETY Last administered on 04/19/17 00 :09; Admin Dose 0.25 MG; Start 04/17/17 at 13:00 LYNETTE SAINZ MD Apr 19, 2017 18:37
--- NOTE | 2017-04-21 21:59 | QN ---
Documentation Comment [id number] LYNETTE SAINZ MD Apr 21, 2017 21:59
--- NOTE | 2017-04-23 07:42 | DS ---
DATE OF ADMISSION: 04/13/2017 DATE OF DISCHARGE: 04/19/2017 HISTORY OF PRESENT ILLNESS: Patient with a history of cirrhosis of the liver, diabetes mellitus, DVT was transferred from [facility] because of abdominal pain. HOSPITAL COURSE: Patient has WBC 5.2, hematocrit 31.8. Patient underwent paracentesis x2, and patient noted to have due to cirrhosis of the liver. Patient was responding very well to pain medication, sliding scale, and paracentesis. Patient _ were negative. Patient , potassium 4.4, hematocrit 31.8. Dr thompson followed this patient very closely, and his impression hepatic encephalopthy cirrhosis of the liver, hepatis, ascites, , DVT status post paracentesis. DISCHARGE DIAGNOSES: 1. Hepatic encephalopathy. 2. Cirrhosis of the liver. 3. Ascites status post paracentesis. 4. Diabetes mellitus. 5. History of deep vein thrombosis (DVT). 6. Anemia. 7. Chronic pain. 8. Dyspepsia. DISCHARGE MEDICATIONS: Continue: 1. Potassium. 2. kcl. 3. Bentyl. 4. Lasix. 5. Hydrocodone. 6. Insulin. 7. Meclozine. 8. CellCept. 9. Zofran. 10. Protonix. 11. Aldactone. . FOLLOWUP: Patient to follow with PCP _ and hepatology at [facility]. DISCHARGE CONDITION: The patient is stable at the time of discharge. Dictated By: Shree Ng MD /twin/haydee /Document#: [id number] CARLOS EDUARDO
== END 2017-04-19 20:15 | disposition home or self-care (01) | DRG 433 ==
LOC: PP2 06:37
PROVIDERS: ADMIT Internal Medicine Nephrology; ATTEND Internal Medicine Nephrology
PROC: 0W9G3ZZ Drainage of Peritoneal Cavity, Percutaneous Approach (ICD-10-PCS; principal; 2017-04-15)
PROC: 0W9G3ZZ Drainage of Peritoneal Cavity, Percutaneous Approach (ICD-10-PCS; 2017-04-19)
DX: K74.69 Other cirrhosis of liver (principal); R18.8 Other ascites; K72.90 Hepatic failure, unspecified without coma; I95.9 Hypotension, unspecified; K75.4 Autoimmune hepatitis; E11.9 Type 2 diabetes mellitus without complications; Z86.718 Personal history of other venous thrombosis and embolism; G89.29 Other chronic pain
CPT/HCPCS: 80048; 80053; 82140; 82962; 83880; 85025; 85610; 87081; 97162; C9113; J0696; J1815; J2405; J2765; J7040; J7042; J7517; P9047

== ENCOUNTER 2017-04-28 10:48 | Emergency (ER) | payer OTHER ==
[~2017-04-28] VITALS: Ht 157.5 cm; Wt 61.0 kg
[~2017-04-28 10:48] MED LIST changes: -CIPR500T4 PO; -METF500T4 PO; +POTA20TA15 PO
[2017-04-28 10:50] VITALS: Ht 157.5 cm; Wt 61.0 kg
[2017-04-28 14:54] LABS: BASOPHILS % 0.6 % (0.0-2.0); EOSINOPHILS % 0.5 % (0.0-7.0); HEMATOCRIT 28.5 % (37.0-47.0); HEMOGLOBIN 10.1 g/dl (12.0-16.0); LYMPHOCYTES # 1.8 10^3/ul (0.8-2.9); LYMPHOCYTES % 28.5 % (15.0-51.0); MEAN CORPUSCULAR HEMOGLOBIN 33.4 pg (29.0-33.0); MEAN CORPUSCULAR HGB CONC 35.4 g/dl (32.0-37.0); MEAN CORPUSCULAR VOLUME 94.4 fl (82.0-101.0); MEAN PLATELET VOLUME 9.9 fl (7.4-10.4); MONOCYTE # 0.5 10^3/ul (0.3-0.9); MONOCYTES % 7.9 % (0.0-11.0); NEUTROPHILS % 62.3 % (39.0-77.0); PLATELET COUNT 167 10^3/UL (140-415); RED BLOOD COUNT 3.02 10^6/ul (4.20-5.40); RED CELL DISTRIBUTION WIDTH 16.2 % (11.5-14.5); WHITE BLOOD COUNT 6.4 10^3/ul (4.8-10.8)
[2017-04-28 15:12] LABS: INR 1.57; PROTIME 18.9 Sec (12.2-14.2); PT RATIO 1.5
[2017-04-28 15:13] LABS: PARTIAL THROMBOPLASTIN TIME 32.4 Sec (25.0-35.0)
[2017-04-28 15:17] LABS: CALCIUM 8.2 mg/dl (8.4-10.2); CREATININE 0.75 mg/dl (0.44-1.00); POTASSIUM 3.7 mmol/L (3.5-5.1)
[2017-04-28] MEDS ORDERED: LIDOCAINE 1% (MPF) 5 ML VIAL ONE (16:43)
[2017-04-28 17:18] VITALS: BP 92/58; PULSE 72; RESP 18; TEMP 97.7
--- NOTE | 2017-04-28 17:25 | ERD ---
ER Documentation Chief Complaint Date/Time DATE: 04/28/17 TIME: 17:24 Chief Complaint sob needs paracenthesis, last time done 7 days ago HPI This is a 61-year-old female with a history of cirrhosis who presents to the ER for evaluation of mild shortness of breath and abdominal distention. The patient states that she has had a previous paracentesis and was instructed to come to the ER for removal of fluid from her abdomen. The patient is denying any fever, nausea or vomiting or diarrhea associated with this ROS All systems reviewed and are negative except as per history of present illness. Medications Home Meds Active Scripts Potassium Chloride* (K-Dur*) 20 Meq Tab.prt.sr, 20 MEQ PO BID for 14 Days Prov:LYNETTE SAINZ MD 04/19/17 Pantoprazole Sodium (Protonix) 40 Mg Granpkt.dr, 40 MG PO DAILY for 28 Days Prov:LYNETTE SAINZ MD 03/07/17 Ondansetron (Ondansetron Odt) 4 Mg Tab.rapdis, 4 MG PO Q6H Y for NAUSEA AND/OR VOMITING, #10 TAB Prov:RYAN WEBB DO 02/09/17 Dicyclomine Hcl* (Bentyl*) 10 Mg Capsule, 20 MG PO QID, #30 CAP Prov:RYAN WEBB DO 02/09/17 Reported Medications Furosemide* (Furosemide*) 20 Mg Tablet, 20 MG PO DAILY, #60 TAB 02/09/17 Spironolactone* (Aldactone*) 50 Mg Tablet, 50 MG PO DAILY, #30 TAB 02/09/17 Mycophenolate Mofetil* (Cellcept*) 500 Mg Tablet, 500 MG PO TID, #60 TAB 12/10/16 Insulin Glargine* (Lantus*) 100 Unit/Ml Soln, 10 UNIT SC QAM, #1 VIAL 12/10/16 Discontinued Scripts Apixaban* (Eliquis*) 5 Mg Tablet, 5 MG PO BID for 28 Days, TAB Prov:LYNETTE SAINZ MD 03/07/17 [Lactulose] 20 GM/30 ML SOLN No Conflict Check, 30 GM PO BID for 28 Days Prov:LYNETTE SAINZ MD 03/07/17 Meclizine Hcl* (Antivert*) 12.5 Mg Tab, 25 MG PO Q6H Y for DIZZINESS, #20 TAB Prov:RYAN WEBB. DO 02/09/17 Hydrocodone/Acetaminophen ([place] 10-325 Tablet) 1 Each Tablet, 1 TAB PO Q6H Y for PAIN, #20 TAB Prov:RYAN WEBB. DO 02/09/17 Allergies Allergies: Coded Allergies: No Known Allergy (Unverified , 04/28/17) PMhx/Soc History of Surgery: Yes (,APPENDECTOMY,CARPEL FRANCISCA) Anesthesia Reaction: No Hx Neurological Disorder: No Hx Respiratory Disorders: No Hx Cardiac Disorders: No Hx Psychiatric Problems: No Hx Miscellaneous Medical Probl: Yes (CIRRHOSIS OF LIVER , DM ) Hx Alcohol Use: No Hx Substance Use: No Hx Tobacco Use: No Smoking Status: Never smoker Physical Exam Vitals Vital Signs Date Time Temp Pulse Resp B/P Pulse Ox O2 Delivery O2 Flow Rate FiO2 04/28/17 17:18 97.7 72 18 92/58 100 Room Air 04/28/17 14:35 98.2 78 20 112/56 98 Room Air 04/28/17 10:50 99.4 99 24 203/68 98 Physical Exam Const: No acute distress Head: Atraumatic Eyes: Normal Conjunctiva ENT: Normal External Ears, Nose and Mouth. Neck: Full range of motion..~ No meningismus. Resp: Clear to auscultation bilaterally Cardio: Regular rate and rhythm, no murmurs Abd: Mild abdominal distention, nontender, normal bowel sounds Skin: No petechiae or rashes Back: No midline or flank tenderness Ext: No cyanosis, or edema Neur: Awake and alert Psych: Normal Mood and Affect Result Diagram: 04/28/17 1445 04/28/17 1445 Results 24 hrs Laboratory Tests Test 04/28/17 14:45 White Blood Count 6.410^3/ul Red Blood Count 3.0210^6/ul Hemoglobin 10.1g/dl Hematocrit 28.5% Mean Corpuscular Volume 94.4fl Mean Corpuscular Hemoglobin 33.4pg Mean Corpuscular Hemoglobin Concent 35.4g/dl Red Cell Distribution Width 16.2% Platelet Count 28472^3/UL Mean Platelet Volume 9.9fl Neutrophils % 62.3% Lymphocytes % 28.5% Monocytes % 7.9% Eosinophils % 0.5% Basophils % 0.6% Nucleated Red Blood Cells % 0.0/100WBC Neutrophils # 4.010^3/ul Lymphocytes # 1.810^3/ul Monocytes # 0.510^3/ul Eosinophils # 0.010^3/ul Basophils # 0.010^3/ul Nucleated Red Blood Cells # 0.010^3/ul Prothrombin Time 18.9Sec Prothrombin Time Ratio 1.5 INR International Normalized Ratio 1.57 Activated Partial Thromboplast Time 32.4Sec Sodium Level 135mmol/L Potassium Level 3.7mmol/L Chloride Level 98mmol/L Carbon Dioxide Level 25mmol/L Anion Gap 16 Blood Urea Nitrogen 11mg/dl Creatinine 0.75mg/dl Glucose Level 146mg/dl Calcium Level 8.2mg/dl Current Medications Medications (Trade) Dose Ordered Sig/Rohit Route PRN Reason Start Time Stop Time Status Last Admin Dose Admin Lidocaine (Xylocaine 1% (Mpf)) 5 ml STK-MED ONCE .ROUTE 04/28/17 16:43 04/28/17 16:44 DC Procedures/MDM This 61-year-old female presents to the ER for evaluation of abdominal distention and mild shortness of breath. This patient does have a history of cirrhosis with previous paracentesis. The patient did have a paracentesis with removal of fluid. She does feel better at this time. She is in no acute distress and will be discharged home. Departure Diagnosis: Primary Impression: Ascites Additional Impression: Normocytic anemia Condition: Stable DEBRA GIBBS DO Apr 28, 2017 17:25
--- NOTE | 2017-04-28 17:29 | RADRPT ---
PROCEDURE: Ultrasound guided paracentesis. CLINICAL INDICATION: Ascites and shortness of breath. COMPARISON: 04/19/2017. TECHNIQUE: The risks, benefits, and alternatives were explained to the patient and/or the patient's family, inc luding but not limited to bleeding, infection, pain, visceral or vascular damage, shock, and . The patient and/or the patient's family understood the risks and the alternatives and wished to pro ceed with the procedure. Informed written consent was obtained. A procedural time out was performed . The patient's name, date of , and procedure to be performed were verified. Utilizing ultrasound guidance, optimal location for entry to the peritoneal cavity was ascertained. The overlying skin was prepped and draped in the usual sterile fashion. Approximately 10 ml of 1% Xylocaine was injected locally for pain control. Using ultrasound guidance, an 8 [place] catheter wa s introduced into the peritoneal cavity in the right lower quadrant without difficulty. FINDINGS: Initial images demonstrate ascites. Approximately 3.45 liters of serous fluid was aspirated and dis carded. The patient tolerated the procedure well without complication. IMPRESSION: 1. Successful ultrasound-guided paracentesis. RPTAT: QQ .Robbie Geller MD, Date Time Electronically viewed and signed by .Robbie Geller MD, on 04/28/2017 17:28 .R/
== END 2017-04-28 17:35 | disposition home or self-care (01) ==
LOC: E/R 10:48
DX: R18.8 Other ascites (principal); D64.9 Anemia, unspecified; E11.9 Type 2 diabetes mellitus without complications; Z79.4 Long term (current) use of insulin
CPT/HCPCS: 80048; 85025; 85610; 85730; Z7502; Z7610

== ENCOUNTER 2017-05-07 09:06 | Emergency (ER) | payer OTHER ==
[~2017-05-07] VITALS: Ht 157.5 cm; Wt 76.0 kg
[~2017-05-07 09:06] MED LIST changes: -APIX5TAB PO; -HYDR-902 PO; -Lactulose PO; -MECL12.574 PO
[2017-05-07 09:09] VITALS: Ht 157.5 cm; Wt 76.0 kg
[2017-05-07 10:54] LABS: BASOPHILS % 0.7 % (0.0-2.0); EOSINOPHILS # 0.1 10^3/ul (0.0-0.5); EOSINOPHILS % 1.1 % (0.0-7.0); HEMOGLOBIN 9.5 g/dl (12.0-16.0); LYMPHOCYTES # 1.2 10^3/ul (0.8-2.9); LYMPHOCYTES % 26.9 % (15.0-51.0); MEAN CORPUSCULAR HEMOGLOBIN 32.4 pg (29.0-33.0); MEAN CORPUSCULAR HGB CONC 33.9 g/dl (32.0-37.0); MEAN CORPUSCULAR VOLUME 95.6 fl (82.0-101.0); MEAN PLATELET VOLUME 9.2 fl (7.4-10.4); MONOCYTE # 0.5 10^3/ul (0.3-0.9); MONOCYTES % 11.6 % (0.0-11.0); NEUTROPHIL # 2.7 10^3/ul (1.6-7.5); NEUTROPHILS % 59.3 % (39.0-77.0); PLATELET COUNT 139 10^3/UL (140-415); RED BLOOD COUNT 2.93 10^6/ul (4.20-5.40); RED CELL DISTRIBUTION WIDTH 15.7 % (11.5-14.5); WHITE BLOOD COUNT 4.6 10^3/ul (4.8-10.8)
[2017-05-07] MEDS ORDERED: LIDOCAINE 1% (MPF) 5 ML VIAL ONE (10:58)
[2017-05-07 11:22] LABS: INR 1.58; PT RATIO 1.5
[2017-05-07 11:23] LABS: PARTIAL THROMBOPLASTIN TIME 34.9 Sec (25.0-35.0)
[2017-05-07 11:25] LABS: ALBUMIN 2.2 g/dl (3.3-4.9); ALBUMIN/GLOBULIN RATIO 0.7; BILIRUBIN,INDIRECT 0.9 mg/dl (0-1.1); BILIRUBIN,TOTAL 0.9 mg/dl (0.2-1.3); CALCIUM 8.1 mg/dl (8.4-10.2); CREATININE 0.83 mg/dl (0.44-1.00); POTASSIUM 3.8 mmol/L (3.5-5.1); TOTAL PROTEIN 5.3 g/dl (6.1-8.1)
--- NOTE | 2017-05-07 12:49 | RADRPT ---
PROCEDURE: Ultrasound guided paracentesis. CLINICAL INDICATION: Ascites and shortness of breath. COMPARISON: No prior studies are available for comparison. TECHNIQUE: The risks, benefits, and alternatives were explained to the patient and/or the patient's family, inc luding but not limited to bleeding, infection, pain, visceral or vascular damage, shock, and . The patient and/or the patient's family understood the risks and the alternatives and wished to pro ceed with the procedure. Informed written consent was obtained. A procedural time out was performed . The patient's name, date of , and procedure to be performed were verified. Utilizing ultrasound guidance, optimal location for entry to the peritoneal cavity was ascertained. The overlying skin was prepped and draped in the usual sterile fashion. Approximately 10 ml of 1% Xylocaine was injected locally for pain control. Using ultrasound guidance, an 8 [place] catheter wa s introduced into the peritoneal cavity in the Right upper quadrant without difficulty. FINDINGS: Initial images demonstrate ascites. Approximately 4.4 liters of serous fluid was aspirated and disc arded. The patient tolerated the procedure well without complication. IMPRESSION: 1. Successful ultrasound-guided paracentesis. RPTAT: QQ .Robbie Geller MD, MD Date Time Electronically viewed and signed by .Robbie Geller MD, on 05/07/2017 12:49 .R/
--- NOTE | 2017-05-07 13:18 | ERD ---
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 Patient gets regular paracentesis and she is here for paracentesis today. Patient is noting she is having some increasing abdominal swelling over the past 10 days but no pain no vomiting diarrhea no black stool no fever no shortness of breath or chest pain. She is here just for a paracentesis on ROS All systems reviewed and are negative except as per history of present illness. Medications Home Meds Active Scripts Potassium Chloride* (K-Dur*) 20 Meq Tab.prt.sr, 20 MEQ PO BID for 14 Days Prov:LYNETTE SAINZ MD 04/19/17 Pantoprazole Sodium (Protonix) 40 Mg Granpkt.dr, 40 MG PO DAILY for 28 Days Prov:LYNETTE SAINZ MD 03/07/17 Ondansetron (Ondansetron Odt) 4 Mg Tab.rapdis, 4 MG PO Q6H Y for NAUSEA AND/OR VOMITING, #10 TAB Prov:RYAN WEBB DO 02/09/17 Dicyclomine Hcl* (Bentyl*) 10 Mg Capsule, 20 MG PO QID, #30 CAP Prov:RYAN WEBB DO 02/09/17 Reported Medications Furosemide* (Furosemide*) 20 Mg Tablet, 20 MG PO DAILY, #60 TAB 02/09/17 Spironolactone* (Aldactone*) 50 Mg Tablet, 50 MG PO DAILY, #30 TAB 02/09/17 Mycophenolate Mofetil* (Cellcept*) 500 Mg Tablet, 500 MG PO TID, #60 TAB 12/10/16 Insulin Glargine* (Lantus*) 100 Unit/Ml Soln, 10 UNIT SC QAM, #1 VIAL 12/10/16 Allergies Allergies: Coded Allergies: No Known Allergy (Unverified , 05/07/17) PMhx/Soc History of Surgery: Yes (,APPENDECTOMY,CARPEL FRANCISCA) Anesthesia Reaction: No Hx Neurological Disorder: No Hx Respiratory Disorders: No Hx Cardiac Disorders: No Hx Psychiatric Problems: No Hx Miscellaneous Medical Probl: Yes (CIRRHOSIS OF LIVER , DM ) Hx Alcohol Use: No Hx Substance Use: No Hx Tobacco Use: No Smoking Status: Never smoker FmHx Family History: No coronary disease Physical Exam Vitals Vital Signs Date Time Temp Pulse Resp B/P Pulse Ox O2 Delivery O2 Flow Rate FiO2 05/07/17 09:09 98.0 80 20 95/63 100 Physical Exam Const: Well-developed, well-nourished Head: Atraumatic, normocephalic Eyes: Normal Conjunctiva, PERRLA, EOMI, normal sclera, no nystagmus ENT: Normal External Ears, Nose and Mouth, moist mucus membranes. Neck: Full range of motion. No meningismus, no lymphadenopathy. Resp: Clear to auscultation bilaterally, no wheezing, rhonchi, rales Cardio: Regular rate and rhythm, no murmurs, S1 S2 present Abd: Soft, non tender x 4, positive ascites normal bowel sounds, no guarding or rebound, no pulsitile abdominal masses or bruits Skin: No petechiae or rashes, no ecchymosis , no maculopapular rash Back: No midline or flank tenderness Ext: No cyanosis, or edema, FROM x 4, normal inspection, neurovascularly intact x 4 Neur: Awake and alert, STR 5/5 x 4, sensation intact x 4, no focal findings, cerebellum intact Psych: Normal Mood and Affect Result Diagram: 05/07/17 1050 05/07/17 1050 Results 24 hrs Laboratory Tests Test 05/07/17 10:50 White Blood Count 4.610^3/ul Red Blood Count 2.9310^6/ul Hemoglobin 9.5g/dl Hematocrit 28.0% Mean Corpuscular Volume 95.6fl Mean Corpuscular Hemoglobin 32.4pg Mean Corpuscular Hemoglobin Concent 33.9g/dl Red Cell Distribution Width 15.7% Platelet Count 30833^3/UL Mean Platelet Volume 9.2fl Neutrophils % 59.3% Lymphocytes % 26.9% Monocytes % 11.6% Eosinophils % 1.1% Basophils % 0.7% Nucleated Red Blood Cells % 0.0/100WBC Neutrophils # 2.710^3/ul Lymphocytes # 1.210^3/ul Monocytes # 0.510^3/ul Eosinophils # 0.110^3/ul Basophils # 0.010^3/ul Nucleated Red Blood Cells # 0.010^3/ul Prothrombin Time 19.0Sec Prothrombin Time Ratio 1.5 INR International Normalized Ratio 1.58 Activated Partial Thromboplast Time 34.9Sec Sodium Level 135mmol/L Potassium Level 3.8mmol/L Chloride Level 95mmol/L Carbon Dioxide Level 28mmol/L Anion Gap 16 Blood Urea Nitrogen 14mg/dl Creatinine 0.83mg/dl Glucose Level 100mg/dl Calcium Level 8.1mg/dl Total Bilirubin 0.9mg/dl Direct Bilirubin 0.00mg/dl Indirect Bilirubin 0.9mg/dl Aspartate Amino Transf (AST/SGOT) 34IU/L Alanine Aminotransferase (ALT/SGPT) 30IU/L Alkaline Phosphatase 140IU/L Total Protein 5.3g/dl Albumin 2.2g/dl Globulin 3.10g/dl Albumin/Globulin Ratio 0.70 Current Medications Medications (Trade) Dose Ordered Sig/Rohit Route PRN Reason Start Time Stop Time Status Last Admin Dose Admin Lidocaine (Xylocaine 1% (Mpf)) 5 ml STK-MED ONCE .ROUTE 05/07/17 10:58 05/07/17 10:59 DC Procedures/MDM Patient had a successful paracentesis of ascites fluid Patient be discharged home in stable condition Departure Diagnosis: Primary Impression: Ascites Ascites type: other type Qualified Code: R18.8 - Other ascites Condition: Stable Patient Instructions: Ascites Referrals: DOCTOR,NOT ON STAFF (PCP) RYAN WEBB DO May 07, 2017 13:18
[2017-05-07] MEDS ORDERED: ONDA4TAB14 PO (13:22)
[2017-05-07 13:23] VITALS: BP 98/52; PULSE 65; RESP 17; TEMP 97.3
== END 2017-05-07 17:44 | disposition home or self-care (01) ==
LOC: E/R 09:06
DX: R18.8 Other ascites (principal); E11.9 Type 2 diabetes mellitus without complications; R06.02 Shortness of breath; Z79.4 Long term (current) use of insulin
CPT/HCPCS: 36415; 80053; 85025; 85610; 85730; Z7502; Z7610

== ENCOUNTER 2017-05-15 10:13 | Emergency (ER) | payer OTHER ==
[~2017-05-15] VITALS: Ht 160 cm; Wt 62.0 kg
[2017-05-15 10:23] VITALS: Ht 160 cm; Wt 62.0 kg
[2017-05-15] MEDS ORDERED: traMADol 50 MG TAB PO ONE (12:30)
[2017-05-15 12:34] LABS: BASOPHIL # 0.1 10^3/ul (0.0-0.1); BASOPHILS % 0.8 % (0.0-2.0); EOSINOPHILS % 0.3 % (0.0-7.0); HEMATOCRIT 31.4 % (37.0-47.0); HEMOGLOBIN 10.8 g/dl (12.0-16.0); LYMPHOCYTES # 1.4 10^3/ul (0.8-2.9); LYMPHOCYTES % 22.5 % (15.0-51.0); MEAN CORPUSCULAR HEMOGLOBIN 32.8 pg (29.0-33.0); MEAN CORPUSCULAR HGB CONC 34.4 g/dl (32.0-37.0); MEAN CORPUSCULAR VOLUME 95.4 fl (82.0-101.0); MEAN PLATELET VOLUME 9.1 fl (7.4-10.4); MONOCYTE # 0.5 10^3/ul (0.3-0.9); MONOCYTES % 8.6 % (0.0-11.0); NEUTROPHILS % 67.5 % (39.0-77.0); PLATELET COUNT 175 10^3/UL (140-415); RED BLOOD COUNT 3.29 10^6/ul (4.20-5.40); RED CELL DISTRIBUTION WIDTH 14.6 % (11.5-14.5); WHITE BLOOD COUNT 6.1 10^3/ul (4.8-10.8)
[2017-05-15 12:46] LABS: INR 1.26; PROTIME 15.9 Sec (12.2-14.2); PT RATIO 1.2
[2017-05-15 12:47] LABS: PARTIAL THROMBOPLASTIN TIME 30.3 Sec (25.0-35.0)
[2017-05-15 12:50] LABS: ALBUMIN 2.5 g/dl (3.3-4.9); ALBUMIN/GLOBULIN RATIO 0.75; BILIRUBIN,INDIRECT 0.6 mg/dl (0-1.1); BILIRUBIN,TOTAL 0.6 mg/dl (0.2-1.3); CALCIUM 8.2 mg/dl (8.4-10.2); CREATININE 0.86 mg/dl (0.44-1.00); POTASSIUM 3.5 mmol/L (3.5-5.1); TOTAL PROTEIN 5.8 g/dl (6.1-8.1)
--- NOTE | 2017-05-15 13:39 | ERD ---
ER Documentation Chief Complaint Date/Time DATE: 05/15/17 TIME: 13:36 Chief Complaint diffuse abdominal pain 2ndry to ascites, drained weekly HPI 62-year-old female with a history of autoimmune cirrhosis presenting with abdominal pain and swelling. She had a paracentesis on May 07. She has been referred to a specialist but has not been able to see this doctor yet. Currently she complains of her usual abdominal pain and pressure, but feels that it is worse in the right upper quadrant today. She describes it as an aching pain, nonradiating, without associated fever, chills, nausea, vomiting, diarrhea. ROS All systems reviewed and are negative except as per history of present illness. Medications Home Meds Active Scripts Ondansetron (Ondansetron Odt) 4 Mg Tab.rapdis, 4 MG PO Q6H Y for NAUSEA AND/OR VOMITING, #10 TAB Prov:RYAN WEBB DO 05/07/17 Potassium Chloride* (K-Dur*) 20 Meq Tab.prt.sr, 20 MEQ PO BID for 14 Days Prov:LYNETTE SAINZ MD 04/19/17 Pantoprazole Sodium (Protonix) 40 Mg Granpkt.dr, 40 MG PO DAILY for 28 Days Prov:LYNETTE SAINZ MD 03/07/17 Ondansetron (Ondansetron Odt) 4 Mg Tab.rapdis, 4 MG PO Q6H Y for NAUSEA AND/OR VOMITING, #10 TAB Prov:RYAN WEBB DO 02/09/17 Dicyclomine Hcl* (Bentyl*) 10 Mg Capsule, 20 MG PO QID, #30 CAP Prov:RYAN WEBB DO 02/09/17 Reported Medications Furosemide* (Furosemide*) 20 Mg Tablet, 20 MG PO DAILY, #60 TAB 02/09/17 Spironolactone* (Aldactone*) 50 Mg Tablet, 50 MG PO DAILY, #30 TAB 02/09/17 Mycophenolate Mofetil* (Cellcept*) 500 Mg Tablet, 500 MG PO TID, #60 TAB 12/10/16 Insulin Glargine* (Lantus*) 100 Unit/Ml Soln, 10 UNIT SC QAM, #1 VIAL 12/10/16 Allergies Allergies: Coded Allergies: No Known Allergy (Unverified , 05/07/17) PMhx/Soc History of Surgery: Yes (,APPENDECTOMY,CARPEL FRANCISCA) Anesthesia Reaction: No Hx Neurological Disorder: No Hx Respiratory Disorders: No Hx Cardiac Disorders: No Hx Psychiatric Problems: No Hx Miscellaneous Medical Probl: Yes (CIRRHOSIS OF LIVER , DM ) Hx Alcohol Use: No Hx Substance Use: No Hx Tobacco Use: No FmHx Family History: No diabetes Physical Exam Vitals Vital Signs Date Time Temp Pulse Resp B/P Pulse Ox O2 Delivery O2 Flow Rate FiO2 05/15/17 10:23 97.5 94 18 92/58 96 Physical Exam Const: Well-appearing, comfortably laying in bed, no apparent distress, nontoxic Head: Atraumatic Eyes: Normal Conjunctiva ENT: Normal External Ears, Nose and Mouth. Neck: Full range of motion..~ No meningismus. Resp: Clear to auscultation bilaterally Cardio: Regular rate and rhythm, no murmurs Abd: Soft, minimal diffuse tenderness, more marked in the right upper quadrant , moderately distended. Normal bowel sounds Skin: No petechiae or rashes Back: No midline or flank tenderness Ext: No cyanosis, or edema Neur: Awake and alert Psych: Normal Mood and Affect Result Diagram: 05/15/17 1206 05/15/17 1206 Results 24 hrs Laboratory Tests Test 05/15/17 12:00 05/15/17 12:06 Lipase 66U/L White Blood Count 6.110^3/ul Red Blood Count 3.2910^6/ul Hemoglobin 10.8g/dl Hematocrit 31.4% Mean Corpuscular Volume 95.4fl Mean Corpuscular Hemoglobin 32.8pg Mean Corpuscular Hemoglobin Concent 34.4g/dl Red Cell Distribution Width 14.6% Platelet Count 13705^3/UL Mean Platelet Volume 9.1fl Neutrophils % 67.5% Lymphocytes % 22.5% Monocytes % 8.6% Eosinophils % 0.3% Basophils % 0.8% Nucleated Red Blood Cells % 0.0/100WBC Neutrophils # (Manual) 410^3/ul Lymphocytes # 1.410^3/ul Monocytes # 0.510^3/ul Eosinophils # 0.010^3/ul Basophils # 0.110^3/ul Nucleated Red Blood Cells # 0.010^3/ul Prothrombin Time 15.9Sec Prothrombin Time Ratio 1.2 INR International Normalized Ratio 1.26 Activated Partial Thromboplast Time 30.3Sec Sodium Level 130mmol/L Potassium Level 3.5mmol/L Chloride Level 92mmol/L Carbon Dioxide Level 31mmol/L Anion Gap 11 Blood Urea Nitrogen 12mg/dl Creatinine 0.86mg/dl Glucose Level 134mg/dl Calcium Level 8.2mg/dl Total Bilirubin 0.6mg/dl Direct Bilirubin 0.00mg/dl Indirect Bilirubin 0.6mg/dl Aspartate Amino Transf (AST/SGOT) 36IU/L Alanine Aminotransferase (ALT/SGPT) 28IU/L Alkaline Phosphatase 140IU/L Total Protein 5.8g/dl Albumin 2.5g/dl Globulin 3.30g/dl Albumin/Globulin Ratio 0.75 Current Medications Medications (Trade) Dose Ordered Sig/Rohit Route PRN Reason Start Time Stop Time Status Last Admin Dose Admin Tramadol HCl (Ultram) 50 mg ONCE ONCE PO 05/15/17 12:30 05/15/17 12:31 DC 05/15/17 12:34 Procedures/MDM EMERGENT LABS AND DIAGNOSTIC STUDIES: Lab Results above were reviewed and interpreted by me. CBC: Mild anemia CMP: Mild hyponatremia, mildly elevated alk phos. No evidence of significant electrolyte abnormality, renal failure, hypoglycemia, or biliary obstruction Lipase: no evidence of pancreatitis Radiology Results as interpreted by Radiology below were reviewed by Virgilio Montaño MD: Ultrasound gallbladder: Pending Ultrasound-guided paracentesis: Pending Initial Nursing notes reviewed. Previous Medical Records requested via the Electronic Health Record. EMERGENCY DEPARTMENT COURSE / MEDICAL DECISION MAKING: Patient is presenting with abdominal pain, distention, requesting a paracentesis. Given her right upper quadrant tenderness on exam, I cannot rule out acute cholecystitis, however this is unlikely given the patient has no leukocytosis or fever. I also have a low suspicion for SBP, but given the patient's abdominal tenderness, I ordered fluid studies on the ascitic fluid to evaluate for infection. Patient is awaiting paracentesis and ultrasound of her gallbladder. If the fluid analysis does not suggest SBP and her ultrasound does not show evidence of cholecystitis, I believe the patient is stable for discharge with continued outpatient follow-up. Patient signed out to the oncoming ED doctor, Dr. Sanchez, will follow up on these studies. Departure Diagnosis: Primary Impression: Abdominal pain Abdominal location: generalized Qualified Code: R10.84 - Generalized abdominal pain Additional Impression: Ascites Ascites type: other type Qualified Code: R18.8 - Other ascites Condition: Fair ZHANNA MONTAÑO MD May 15, 2017 13:39
--- NOTE | 2017-05-15 15:00 | RADRPT ---
PROCEDURE: US Abdomen Limited. CLINICAL INDICATION: Right upper quadrant pain with history of cirrhosis. Evaluate for acute chol ecystitis. TECHNIQUE: Multiple real-time longitudinal and transverse images were acquired of the patient's [facility] abdomen and retroperitoneum utilizing a curved array transducer. COMPARISON: 02/27/2017 FINDINGS: Pancreas: The pancreas is suboptimally visualized. Liver: The liver is small in caliber and nodular in appearance. There is a coarse echotexture of t he liver which measures about 11.6 cm in length cranial-caudal. No definite focal lesions are visua lized within the liver. Bile ducts: The intrahepatic bile ducts are not dilated. Common bile duct measures 7 mm in diamete r, at the upper limit of normal. Gallbladder: There are gallstones within the gallbladder with posterior shadowing. The gallbladder wall measures about 5.6 mm in thickness. There is no pericholecystic fluid or sonographic Pradhan's sign. Kidneys: The right kidney measures 11.2 cm in length. The parenchymal echogenicity and thickness ap pear within normal range. No focal lesions are visualized. No hydronephrosis. There is a moderate amount of ascites visualized within the abdomen. RPTAT: QQ IMPRESSION: 1. Cholelithiasis with mild to moderate thickening of the gallbladder wall which may be related to the cirrhosis versus chronic inflammation. No pericholecystic fluid or sonographic Pradhan's sign as seen with acute cholecystitis. 2. Cirrhosis of the liver. 3. Moderate ascites. .Beulah Whipple MD, Date Time Electronically viewed and signed by .Beulah Whipple MD, on 05/15/2017 15:00 .T/
[2017-05-15] MEDS ORDERED: LIDOCAINE 1% (MPF) 5 ML VIAL ONE (15:54)
--- NOTE | 2017-05-15 16:27 | RADRPT ---
PROCEDURE: Ultrasound guided paracentesis CLINICAL INDICATION: Ascites TECHNIQUE: The risks, benefits, and alternatives were explained to the patient, including but not limited to bleeding, infection, pain, visceral or vascular damage, shock, and . The patient und erstood the risks and the alternatives and wished to proceed with the procedure. Informed written co nsent was obtained. A procedural time out was performed. The patient's name, date of , and proc edure to be performed were verified. Preliminary job molder ultrasound of the abdomen was performed. Fluid was identified in the right lower quadrant. The overlying skin of the right lower quadrant was prepped and draped in the usual steril e fashion. Under ultrasound guidance, a skin an 8-Grenadian catheter was introduced into the right low er quadrant peritoneal cavity after 10 ml of 1% lidocaine was injected for pain control. 3200 ml of clear yellow fluid was obtained without difficulty. The fluid was sent the laboratory for further a nalysis. The patient tolerated procedure well without complication. COMPARISON: 05/07/2017 FINDINGS: Approximately 3200 ml of clear yellow fluid was obtained. The fluid was sent to the laboratory for further evaluation. RPTAT: QQ IMPRESSION: 1. Successful ultrasound-guided paracentesis. .Beulah Whipple MD, Date Time Electronically viewed and signed by .Beulah Whipple MD, MD on 05/15/2017 16:27 .T/
[2017-05-15 16:40] LABS: FLD RBC 1 /uL; FLD WBC 62 /cmm
[2017-05-15 16:47] LABS: FLUID GLUCOSE 121 mg/dl; FLUID TOTAL PROTEIN < 2.0 g/dl
[2017-05-15 16:48] LABS: FLD CLARITY CLEAR; FLD COLOR YELLOW; FLD TYPE ASCITES
--- NOTE | 2017-05-15 17:27 | EN ---
Date/Time of Note Date/Time of Note DATE: 05/15/17 TIME: 17:26 ER Progress Note This patient did undergo ultrasound paracentesis with relief of her abdominal pain. The patient has no signs of SBP based off of abdominal fluid studies and will be discharged at this time. DEBRA GIBBS DO May 15, 2017 17:27
[2017-05-15 17:50] VITALS: BP 96/75; PULSE 85; RESP 18
== END 2017-05-15 17:54 | disposition home or self-care (01) ==
LOC: E/R 10:13
DX: R10.84 Generalized abdominal pain (principal); R18.8 Other ascites; E11.9 Type 2 diabetes mellitus without complications; Z79.4 Long term (current) use of insulin
CPT/HCPCS: 36415; 76705; 80053; 82945; 83690; 84157; 85025; 85610; 85730; 87070; 87102; 87116; 89051; Z7502; Z7610

== ENCOUNTER 2017-05-26 10:29 | Emergency (ER) | payer OTHER ==
[~2017-05-26 10:29] MED LIST changes: -PANT40SU PO; -POTA20TA15 PO
[2017-05-26] MEDS ORDERED: ONDANSETRON 4 MG INJ ONE (11:49)
[2017-05-26] MEDS ORDERED: FENTAnyl 50 MCG/ML VIAL ONE (11:50)
[2017-05-26] MEDS ORDERED: IBUPROFEN 600 MG TAB ONE (11:50)
[2017-05-26 12:21] LABS: BASOPHIL # 0.1 10^3/ul (0.0-0.1); BASOPHILS % 0.9 % (0.0-2.0); EOSINOPHILS % 0.4 % (0.0-7.0); HEMATOCRIT 33.7 % (37.0-47.0); HEMOGLOBIN 11.4 g/dl (12.0-16.0); LYMPHOCYTES # 1.2 10^3/ul (0.8-2.9); LYMPHOCYTES % 21.2 % (15.0-51.0); MEAN CORPUSCULAR HEMOGLOBIN 32.4 pg (29.0-33.0); MEAN CORPUSCULAR HGB CONC 33.8 g/dl (32.0-37.0); MEAN CORPUSCULAR VOLUME 95.7 fl (82.0-101.0); MEAN PLATELET VOLUME 9.5 fl (7.4-10.4); MONOCYTE # 0.4 10^3/ul (0.3-0.9); MONOCYTES % 7.8 % (0.0-11.0); NEUTROPHILS % 69.2 % (39.0-77.0); PLATELET COUNT 212 10^3/UL (140-415); RED BLOOD COUNT 3.52 10^6/ul (4.20-5.40); RED CELL DISTRIBUTION WIDTH 13.8 % (11.5-14.5); WHITE BLOOD COUNT 5.5 10^3/ul (4.8-10.8)
[2017-05-26 12:45] LABS: ALBUMIN 2.5 g/dl (3.3-4.9); ALBUMIN/GLOBULIN RATIO 0.71; BILIRUBIN,INDIRECT 0.6 mg/dl (0-1.1); BILIRUBIN,TOTAL 0.6 mg/dl (0.2-1.3); CALCIUM 8.2 mg/dl (8.4-10.2); CREATININE 0.84 mg/dl (0.44-1.00)
[2017-05-26 12:48] LABS: POTASSIUM 2.7 mmol/L (3.5-5.1)
[2017-05-26 12:50] LABS: INR 1.18; PROTIME 15.1 Sec (12.2-14.2); PT RATIO 1.2
[2017-05-26] MEDS ORDERED: POTASSIUM CHLORIDE (SR) 20 MEQ TAB PO STA (12:50)
[2017-05-26 12:51] LABS: PARTIAL THROMBOPLASTIN TIME 28.9 Sec (25.0-35.0)
[2017-05-26] MEDS ORDERED: POTASSIUM CHLORIDE 50 ML IVPB ONE (13:00)
--- NOTE | 2017-05-26 14:05 | ERA ---
ER Documentation Chief Complaint Date/Time DATE: 05/26/17 TIME: 13:49 Chief Complaint HPI This is a 62-year-old female with history of diabetes and autoimmune hepatitis, gated by cirrhosis, ascites, previous episodes of hepatic encephalopathy, frequent paracenteses approximately once a week who is presenting with abdominal distention, generalized discomfort and pain with nausea, vomiting and waxing and waning lightheadedness. These are all the patient's symptoms that she gets when she requires a paracentesis. Of note, however, the patient also endorses increased fatigue compared to her baseline. She also had a few episodes of left-sided neck and shoulder pain and spasm for the last few days. The patient denies fever. She has had intermittent chills, but this is typical for her given her liver pathology. She denies chest pain. She has mild respiratory discomfort with deep breaths, which again she attributes to her worsening ascites. She endorses urinary frequency but no burning or pain. She has had no changes to bowel movements. She takes lactulose regularly. The patient has chronic lower extremity edema that is unchanged from her baseline. The patient recently changed eye technician from [facility] to a group in [place]. She recently had her Lasix increased. The eye technician is working on obtaining outpatient paracenteses regularly, but the patient has not had a paracentesis in 11 days, which is long for her. ROS All systems reviewed and are negative except as per history of present illness. Medications Home Meds Active Scripts Dicyclomine Hcl* (Bentyl*) 10 Mg Capsule, 20 MG PO QID, #30 CAP Prov:RYAN WEBB DO 02/09/17 Reported Medications Omeprazole* (Omeprazole*) 20 Mg Capsule.dr, 20 MG PO DAILY, #30 CAP 05/26/17 Tramadol Hcl* (Ultram*) 50 Mg Tablet, 50 MG PO Q6H Y for PAIN, TAB 05/26/17 Ondansetron Hcl* (Zofran*) 8 Mg Tab, 8 MG PO Q6H Y for NAUSEA AND OR VOMITING, TAB 05/26/17 Lactulose* (Lactulose*) 10 Gm/15 Ml Solution, 10 GM PO NEEDED, ML 05/26/17 Furosemide* (Furosemide*) 20 Mg Tablet, 20 MG PO BID, #60 TAB 02/09/17 Mycophenolate Mofetil* (Cellcept*) 500 Mg Tablet, 500 MG PO TID, #60 TAB 12/10/16 Insulin Glargine* (Lantus*) 100 Unit/Ml Soln, 10 UNIT SC QAM, #1 VIAL 12/10/16 Discontinued Reported Medications Spironolactone* (Aldactone*) 50 Mg Tablet, 50 MG PO DAILY, #30 TAB 02/09/17 Discontinued Scripts Ondansetron (Ondansetron Odt) 4 Mg Tab.rapdis, 4 MG PO Q6H Y for NAUSEA AND/OR VOMITING, #10 TAB Prov:VICKJUAN JOSÉALBERTOTALIBASHIR IldefonsoGabriela DO 05/07/17 Allergies Allergies: Coded Allergies: No Known Allergy (Unverified , 05/26/17) PMhx/Soc History of Surgery: Yes (,APPENDECTOMY,CARPAL FRANCISCA) Anesthesia Reaction: No Hx Neurological Disorder: No Hx Respiratory Disorders: No Hx Cardiac Disorders: No Hx Psychiatric Problems: No Hx Miscellaneous Medical Probl: Yes (CIRRHOSIS OF LIVER , DM ) Hx Alcohol Use: No Hx Substance Use: No Hx Tobacco Use: No Smoking Status: Never smoker Physical Exam Vitals Vital Signs Date Time Temp Pulse Resp B/P Pulse Ox O2 Delivery O2 Flow Rate FiO2 05/26/17 18:14 98.2 75 18 91/56 98 Room Air 05/26/17 17:06 98.0 77 20 89/57 99 Room Air 05/26/17 15:00 98.2 89 18 108/76 98 Room Air 05/26/17 13:06 98.0 91 20 103/70 98 Room Air Physical Exam Const: Well-nourished, well-developed Head: Atraumatic Eyes: Normal Conjunctiva, no scleral icterus ENT: Normal External Ears, Nose and Mouth. Neck: Full range of motion. ~ No meningismus. Resp: faint bibasilar rales, otherwise CTAB Cardio: Regular rate and rhythm, no murmurs Abd: Soft, distended, generalized abdominal discomfort, no guarding, no rebound. Normal bowel sounds Skin: No petechiae or rashes Back: No midline or flank tenderness Ext: No cyanosis, or edema, no jaundice Neur: Awake and alert Psych: Normal Mood and Affect Result Diagram: 05/26/17 1214 05/26/17 1214 Results 24 hrs Laboratory Tests Test 05/26/17 12:14 White Blood Count 5.510^3/ul Red Blood Count 3.5210^6/ul Hemoglobin 11.4g/dl Hematocrit 33.7% Mean Corpuscular Volume 95.7fl Mean Corpuscular Hemoglobin 32.4pg Mean Corpuscular Hemoglobin Concent 33.8g/dl Red Cell Distribution Width 13.8% Platelet Count 93171^3/UL Mean Platelet Volume 9.5fl Neutrophils % 69.2% Lymphocytes % 21.2% Monocytes % 7.8% Eosinophils % 0.4% Basophils % 0.9% Nucleated Red Blood Cells % 0.0/100WBC Neutrophils # (Manual) 3.810^3/ul Lymphocytes # 1.210^3/ul Monocytes # 0.410^3/ul Eosinophils # 0.010^3/ul Basophils # 0.110^3/ul Nucleated Red Blood Cells # 0.010^3/ul Prothrombin Time 15.1Sec Prothrombin Time Ratio 1.2 INR International Normalized Ratio 1.18 Activated Partial Thromboplast Time 28.9Sec Sodium Level 136mmol/L Potassium Level 2.7mmol/L Chloride Level 92mmol/L Carbon Dioxide Level 32mmol/L Anion Gap 15 Blood Urea Nitrogen 10mg/dl Creatinine 0.84mg/dl Glucose Level 198mg/dl Calcium Level 8.2mg/dl Total Bilirubin 0.6mg/dl Direct Bilirubin 0.00mg/dl Indirect Bilirubin 0.6mg/dl Aspartate Amino Transf (AST/SGOT) 42IU/L Alanine Aminotransferase (ALT/SGPT) 29IU/L Alkaline Phosphatase 124IU/L Total Protein 6.0g/dl Albumin 2.5g/dl Globulin 3.50g/dl Albumin/Globulin Ratio 0.71 Current Medications Medications (Trade) Dose Ordered Sig/Rohit Route PRN Reason Start Time Stop Time Status Last Admin Dose Admin Potassium Chloride (KCl 10 MEQ/50 ML SW) 50 ml @ 50 mls/hr ONCE ONCE IVPB 05/26/17 13:00 05/26/17 13:59 DC Potassium Chloride 40 meq 40 meq ONCE STAT PO 05/26/17 12:50 05/26/17 12:52 DC 05/26/17 12:50 Potassium Chloride (KCl 10 MEQ/50 ML SW) 50 ml @ 50 mls/hr ONCE IVPB 05/26/17 15:00 05/26/17 16:00 DC Lidocaine 5 ml 5 ml STK-MED ONCE .ROUTE 05/26/17 16:52 05/26/17 16:53 DC Albumin Human (Albumin Human 25%) 50 ml @ 100 mls/hr ONCE ONCE IV 05/26/17 17:30 05/26/17 17:59 DC 05/26/17 17:27 Procedures/MDM The patient's primary concern is to receive the paracentesis. Given that her symptoms appear mildly heightened compared to previous episodes, I will obtain blood work. The patient will also receive fentanyl and Zofran for her pain and nausea, respectively. The patient's blood work was obtained and reviewed. The patient's CBC shows no leukocytosis or left shift. The patient is afebrile, and I do not suspect a systemic infection. The patient's abdominal pain is pretty standard when she has ascites. At this time, I do not have suspicion for SBP. Patient has a mild anemia that does not need to be emergently treated. This is likely chronic for her. The patient's BMP shows no renal impairment. The patient does have a metabolic alkalosis which is likely associated with her respiratory acidosis from tachypnea related to her ascites. It is important to note that her potassium is low at 2.7. In speaking with the patient's eye technician, it is usually around 3.5. The patient just had her Lasix increased without an increased and her spironolactone. The patient's eye technician intends to send a prescription to her pharmacy today to increase her spironolactone. The patient will be notified of this. Her potassium was repleted orally. The patient's LFTs revealed hypoalbuminemia and an elevated alkaline phosphatase. It was otherwise unremarkable, which is actually an improvement for her. The patient' s INR is 1.18 which is likewise an improvement from her normal baseline. The patient was sent for IR paracentesis. They ultimately pulled off 4.7 liters. The patient was evaluated for 1-2 hours after her paracentesis. Her blood pressure was a little low and she was given albumin in the ER with improvement of her BP. Her symptoms completely resolved after paracentesis. At this time, the patient is stable for discharge. She intends to call her eye technician to schedule an appointment for this month. Her eye technician is Dr. Cyrus Perez, who was called to discuss the case. He intends to follow-up with her as well. The patient be given precautions with which to return to the emergency department. Departure Diagnosis: Primary Impression: Ascites Qualified Code: R18.8 - Other ascites Additional Impression: Hypokalemia Condition: Stable MANUEL RANGEL MD May 26, 2017 14:01
[2017-05-26] MEDS ORDERED: POTASSIUM CHLORIDE 50 ML IVPB SCH (15:00)
[2017-05-26] MEDS ORDERED: LACT10SO5 PO (15:26)
[2017-05-26] MEDS ORDERED: ZOF8 PO (15:26)
[2017-05-26] MEDS ORDERED: TRAM-40 PO (15:27)
[2017-05-26] MEDS ORDERED: OMEP20CA16 PO (15:30)
--- NOTE | 2017-05-26 16:47 | RADRPT ---
PROCEDURE: Ultrasound guided paracentesis. CLINICAL INDICATION: Ascites and shortness of breath. COMPARISON: 05/15/2017. TECHNIQUE: The risks, benefits, and alternatives were explained to the patient and/or the patient's family, inc luding but not limited to bleeding, infection, pain, visceral or vascular damage, shock, and . The patient and/or the patient's family understood the risks and the alternatives and wished to pro ceed with the procedure. Informed written consent was obtained. A procedural time out was performed . The patient's name, date of , and procedure to be performed were verified. Utilizing ultrasound guidance, optimal location for entry to the peritoneal cavity was ascertained. The overlying skin was prepped and draped in the usual sterile fashion. Approximately 10 ml of 1% Xylocaine was injected locally for pain control. Using ultrasound guidance, an 8 [place] catheter wa s introduced into the peritoneal cavity in the right lower quadrant without difficulty. FINDINGS: Initial images demonstrate ascites. Approximately 4.7 liters of serous fluid was aspirated and disc arded. The patient tolerated the procedure well without complication. IMPRESSION: 1. Successful ultrasound-guided paracentesis. RPTAT: QQ .Robbie Geller MD, Date Time Electronically viewed and signed by .Robbie Geller MD, on 05/26/2017 16:46 .R/
[2017-05-26] MEDS ORDERED: LIDOCAINE 1% (MPF) 5 ML VIAL ONE (16:52)
[2017-05-26] MEDS ORDERED: ALBUMIN HUMAN 25% 50 ML IV ONE (17:30)
[2017-05-26 19:06] VITALS: BP 97/60; PULSE 81; RESP 18; TEMP 98.1
== END 2017-05-26 19:07 | disposition home or self-care (01) ==
LOC: E/R 12:11
DX: R18.8 Other ascites (principal); E87.6 Hypokalemia; E11.9 Type 2 diabetes mellitus without complications; Z79.4 Long term (current) use of insulin
CPT/HCPCS: 80053; 85025; 85610; 85730; 96374; J2405; J3010; J3480; P9047; Z7502; Z7610

== ENCOUNTER 2017-06-03 09:37 | Emergency (ER) | payer OTHER ==
[~2017-06-03] VITALS: Ht 165.1 cm; Wt 57.5 kg
[~2017-06-03 09:37] MED LIST changes: +LACT10SO5 PO; +OMEP20CA16 PO; -ONDA4TAB14 PO; -SPIR50TA PO; +TRAM-40 PO; +ZOF8 PO
[2017-06-03 09:41] VITALS: Ht 165.1 cm; Wt 57.5 kg
[2017-06-03] MEDS ORDERED: LIDOCAINE 1% (MPF) 5 ML VIAL ONE (12:31)
--- NOTE | 2017-06-03 12:56 | RADRPT ---
PROCEDURE: US guided paracentesis CLINICAL INDICATION: Ascites TECHNIQUE: Multiple sonographic images were obtained through the patient's abdomen. A site in the patient's RIGHT lower abdomen was selected and marked. The area was prepped and draped in the usual sterile fashion. 1% lidocaine was utilized. A 19-gauge Yueh needle was advanced into the peritonea l space and the introducer was connected to a vacuum drainage bottle. A total of 4000 cc of clear y ellow fluid were drained at the end of the procedure. The patient tolerated the procedure well. The specimen was sent for laboratory evaluation. COMPARISON: None FINDINGS: Ascites. RPTAT: AA IMPRESSION: Successful ultrasound-guided paracentesis. Physician Satish Date Time Electronically viewed and signed by Physician Satish on 06/03/2017 12:56 /
--- NOTE | 2017-06-03 13:07 | ERD ---
ER Documentation Chief Complaint Date/Time DATE: 06/03/17 TIME: 13:03 Chief Complaint ABDOMINAL PAIN AND DISTENTION,FOR PARACENTESIS.HX LIVER CIRRHOSIS HPI This is a 62-year-old female presents to the emergency room for evaluation of abdominal distention. This patient does have a history of liver cirrhosis and has had multiple paracentesis done. She denies any fever, and states that she has no abdominal pain just discomfort. The patient states that her discomfort is relieved with paracentesis. She is here with her daughter who also states that she has not had a fever. ROS All systems reviewed and are negative except as per history of present illness. Medications Home Meds Active Scripts Dicyclomine Hcl* (Bentyl*) 10 Mg Capsule, 20 MG PO QID, #30 CAP Prov:RYAN WEBB DO 02/09/17 Reported Medications Omeprazole* (Omeprazole*) 20 Mg Capsule.dr, 20 MG PO DAILY, #30 CAP 05/26/17 Tramadol Hcl* (Ultram*) 50 Mg Tablet, 50 MG PO Q6H Y for PAIN, TAB 05/26/17 Ondansetron Hcl* (Zofran*) 8 Mg Tab, 8 MG PO Q6H Y for NAUSEA AND OR VOMITING, TAB 05/26/17 Lactulose* (Lactulose*) 10 Gm/15 Ml Solution, 10 GM PO NEEDED, ML 05/26/17 Furosemide* (Furosemide*) 20 Mg Tablet, 20 MG PO BID, #60 TAB 02/09/17 Mycophenolate Mofetil* (Cellcept*) 500 Mg Tablet, 500 MG PO TID, #60 TAB 12/10/16 Insulin Glargine* (Lantus*) 100 Unit/Ml Soln, 10 UNIT SC QAM, #1 VIAL 12/10/16 Allergies Allergies: Coded Allergies: No Known Allergy (Unverified , 05/26/17) PMhx/Soc History of Surgery: Yes (,APPENDECTOMY,CARPAL FRANCISCA) Anesthesia Reaction: No Hx Neurological Disorder: No Hx Respiratory Disorders: No Hx Cardiac Disorders: No Hx Psychiatric Problems: No Hx Miscellaneous Medical Probl: Yes (CIRRHOSIS OF LIVER , DM ) Hx Alcohol Use: No Hx Substance Use: No Hx Tobacco Use: No Smoking Status: Never smoker Physical Exam Vitals Vital Signs Date Time Temp Pulse Resp B/P Pulse Ox O2 Delivery O2 Flow Rate FiO2 06/03/17 09:41 97.8 94 18 96/65 97 Physical Exam Const: No acute distress Head: Atraumatic Eyes: Normal Conjunctiva ENT: Normal External Ears, Nose and Mouth. Neck: Full range of motion..~ No meningismus. Resp: Clear to auscultation bilaterally Cardio: Regular rate and rhythm, no murmurs Abd: Mild abdominal distention, nontender Normal bowel sounds Skin: No petechiae or rashes Back: No midline or flank tenderness Ext: No cyanosis, or edema Neur: Awake and alert Psych: Normal Mood and Affect Results 24 hrs Current Medications Medications (Trade) Dose Ordered Sig/Rohit Route PRN Reason Start Time Stop Time Status Last Admin Dose Admin Lidocaine (Xylocaine 1% (Mpf)) 5 ml STK-MED ONCE .ROUTE 06/03/17 12:31 06/03/17 12:32 DC 06/03/17 12:49 Procedures/MDM This 62-year-old female presents to the ER for evaluation of abdominal distention. The patient does have a history of cirrhosis with multiple paracentesis. She underwent a paracentesis today with removal of 4 L fluid. The patient is not hypotensive. She does say she feels much better and will be discharged at this time. Departure Diagnosis: Primary Impression: Abdominal pain Additional Impression: Liver cirrhosis Condition: Stable DEBRA GIBBS DO Jun 03, 2017 13:07
[2017-06-03 13:47] VITALS: BP 94/62; PULSE 80; RESP 18; TEMP 98.1
== END 2017-06-03 13:55 | disposition home or self-care (01) ==
LOC: E/R 09:37
DX: R10.9 Unspecified abdominal pain (principal); K74.60 Unspecified cirrhosis of liver; E11.9 Type 2 diabetes mellitus without complications; Z79.4 Long term (current) use of insulin
CPT/HCPCS: Z7502; Z7610

== ENCOUNTER 2017-07-13 09:56 | Inpatient (IN) | payer OTHER ==
[~2017-07-13] VITALS: Ht 162.6 cm; Wt 53.8 kg
[2017-07-13] MEDS: FAMOTIDINE 20 MG TAB PO SCH (03:22)
[2017-07-13] MEDS: MIDODRINE 5 MG TAB PO SCH (03:22)
[2017-07-13] MEDS ORDERED: SOD CHLORIDE 0.9% 500 ML IV STA (10:07)
[2017-07-13] MEDS ORDERED: ALBUMIN HUMAN 25% 50 ML IV ONE ×3 (10:30→17:30)
[2017-07-13 10:57] LABS: BASOPHILS % 0.6 % (0.0-2.0); EOSINOPHILS % 0.3 % (0.0-7.0); HEMATOCRIT 34.9 % (37.0-47.0); HEMOGLOBIN 11.8 g/dl (12.0-16.0); LYMPHOCYTES # 1.4 10^3/ul (0.8-2.9); LYMPHOCYTES % 20.5 % (15.0-51.0); MEAN CORPUSCULAR HEMOGLOBIN 31.7 pg (29.0-33.0); MEAN CORPUSCULAR HGB CONC 33.8 g/dl (32.0-37.0); MEAN CORPUSCULAR VOLUME 93.8 fl (82.0-101.0); MEAN PLATELET VOLUME 9.2 fl (7.4-10.4); MONOCYTE # 0.5 10^3/ul (0.3-0.9); MONOCYTES % 7.2 % (0.0-11.0); NEUTROPHIL # 4.8 10^3/ul (1.6-7.5); PLATELET COUNT 198 10^3/UL (140-415); RED BLOOD COUNT 3.72 10^6/ul (4.20-5.40); RED CELL DISTRIBUTION WIDTH 14.5 % (11.5-14.5); WHITE BLOOD COUNT 6.8 10^3/ul (4.8-10.8)
--- NOTE | 2017-07-13 11:20 | RADRPT ---
PROCEDURE: CT Brain without contrast. CLINICAL INDICATION: Neurological deficit. TECHNIQUE: A CT of the brain was performed on multidetector high-resolution CT scanner utilizing a xial sections from the skull base through the vertex without contrast. The scan was reviewed in sof t tissue brain and high frequency resolution bone algorithm windows. Images were reviewed on a high -resolution PACS workstation. One or more the following does reduction techniques were utilized: Aut omated exposure control, adjustment of the mA/ or kV according to patient's size, or use of iterativ e reconstruction technique. The exam CTDI = 45.01 mGy and the DLP = 630.2 mGy-cm. COMPARISON: None available. FINDINGS: The ventricles and sulci are mildly prominent indicative of volume loss. There is no intracranial h emorrhage, mass effect or midline shift. No abnormal intra-axial or extra-axial fluid collections a re seen. The kamara/white matter differentiation is preserved. There are mild to moderate foci of hypoattenuation in the white matter, which are nonspecific in eliot ology but likely reflect chronic small vessel ischemic changes. There are mild to moderate intracra nial vascular calcifications consistent with atherosclerosis. The visualized paranasal sinuses are e ssentially clear. IMPRESSION: 1. No acute intracranial hemorrhage, transcortical infarction or mass effect. Please note MRI is mo re sensitive for detection of acute ischemia and can be obtained as clinically warranted. 2. Mild to moderate intracranial atherosclerosis and chronic small vessel ischemic changes. 3. Mild generalized cerebral volume loss. RPTAT: UU .Jose Marcus MD, MD Date Time Electronically viewed and signed by .Jose Marcus MD, MD on 07/13/2017 11:20 .N/
[2017-07-13 11:25] LABS: ALBUMIN 2.6 g/dl (3.3-4.9); ALBUMIN/GLOBULIN RATIO 0.68; BILIRUBIN,INDIRECT 0.8 mg/dl (0-1.1); BILIRUBIN,TOTAL 0.8 mg/dl (0.2-1.3); CALCIUM 8.4 mg/dl (8.4-10.2); CREATININE 0.81 mg/dl (0.44-1.00); POTASSIUM 4.1 mmol/L (3.5-5.1); TOTAL PROTEIN 6.4 g/dl (6.1-8.1)
--- NOTE | 2017-07-13 11:28 | RADRPT ---
PROCEDURE: XR Chest. CLINICAL INDICATION: Shortness of breath TECHNIQUE: Single portable view of the chest was obtained COMPARISON: March 02, 2017 FINDINGS: The trachea is midline. The cardiac silhouette and pulmonary vascularity are within normal limits. R ight lower lobe atelectasis is noted. The costophrenic angles are sharp. IMPRESSION: 1. Right lower lobe atelectasis. No evidence of acute cardiopulmonary disease. RPTAT: AARR Physician Olvin Date Time Electronically viewed and signed by Physician Olvin on 07/13/2017 11:28 JOAQUÍN/
[2017-07-13 11:41] LABS: INR 1.15; PROTIME 14.7 Sec (12.2-14.2); PT RATIO 1.1
--- NOTE | 2017-07-13 11:53 | ERA ---
ER Documentation Chief Complaint Date/Time DATE: 07/13/17 TIME: 11:47 Chief Complaint abd distension/pain, pt here for paracentesis, low BP HPI This is a very pleasant 62-year-old female history of cirrhosis with last paracentesis on Wednesday with only 3 L removed. She presents with worsening abdominal distention, no significant pain. Additionally however the family has noted that the patient is having difficulty moving her left upper extremity and worse left lower extremity over the past 24 hours. She denies any headache or falls, no trauma. ROS All systems reviewed and are negative except as per history of present illness. Medications Home Meds Active Scripts Dicyclomine Hcl* (Bentyl*) 10 Mg Capsule, 20 MG PO QID, #30 CAP Prov:RYAN WEBB DO 02/09/17 Reported Medications Omeprazole* (Omeprazole*) 20 Mg Capsule.dr, 20 MG PO DAILY, #30 CAP 05/26/17 Tramadol Hcl* (Ultram*) 50 Mg Tablet, 50 MG PO Q6H Y for PAIN, TAB 05/26/17 Ondansetron Hcl* (Zofran*) 8 Mg Tab, 8 MG PO Q6H Y for NAUSEA AND OR VOMITING, TAB 05/26/17 Lactulose* (Lactulose*) 10 Gm/15 Ml Solution, 10 GM PO NEEDED, ML 05/26/17 Furosemide* (Furosemide*) 20 Mg Tablet, 20 MG PO BID, #60 TAB 02/09/17 Mycophenolate Mofetil* (Cellcept*) 500 Mg Tablet, 500 MG PO TID, #60 TAB 12/10/16 Insulin Glargine* (Lantus*) 100 Unit/Ml Soln, 10 UNIT SC QAM, #1 VIAL 12/10/16 Allergies Allergies: Coded Allergies: No Known Allergy (Unverified , 06/03/17) PMhx/Soc History of Surgery: Yes (,APPENDECTOMY,CARPAL FRANCISCA) Anesthesia Reaction: No Hx Neurological Disorder: No Hx Respiratory Disorders: No Hx Cardiac Disorders: No Hx Psychiatric Problems: No Hx Miscellaneous Medical Probl: Yes (CIRRHOSIS OF LIVER , DM ) Hx Alcohol Use: No Hx Substance Use: No Hx Tobacco Use: No Smoking Status: Never smoker FmHx Family History: No diabetes Physical Exam Vitals Vital Signs Date Time Temp Pulse Resp B/P Pulse Ox O2 Delivery O2 Flow Rate FiO2 07/13/17 09:58 98.7 89 18 89/60 99 Physical Exam General: Well developed, well nourished, no acute distress Head: Normocephalic, atraumatic. Eyes: Pupils equally reactive, EOM intact ENT: Moist mucous membranes Neck: Supple, no lymphadenopathy Respiratory: Lungs clear bilaterally, no distress Cardiovascular: RRR, no murmurs, rubs, or gallops Abdominal: Soft, non-tender, non-distended, no peritoneal signs, protuberant with mild fluid wave : Deferred MSK: No edema, no unilateral swelling, 4-5 strength to the left upper extremity with 3 out of 5 strength to left lower extremity Neurologic: Alert and oriented, moving all extremities, normal speech, left upper and lower extremity focal weakness as described above, no cerebellar signs Skin: No rash Psych: Normal mood Result Diagram: 07/13/17 1020 07/13/17 1020 Results 24 hrs Laboratory Tests Test 07/13/17 10:20 White Blood Count 6.810^3/ul Red Blood Count 3.7210^6/ul Hemoglobin 11.8g/dl Hematocrit 34.9% Mean Corpuscular Volume 93.8fl Mean Corpuscular Hemoglobin 31.7pg Mean Corpuscular Hemoglobin Concent 33.8g/dl Red Cell Distribution Width 14.5% Platelet Count 92068^3/UL Mean Platelet Volume 9.2fl Neutrophils % 71.0% Lymphocytes % 20.5% Monocytes % 7.2% Eosinophils % 0.3% Basophils % 0.6% Nucleated Red Blood Cells % 0.0/100WBC Neutrophils # 4.810^3/ul Lymphocytes # 1.410^3/ul Monocytes # 0.510^3/ul Eosinophils # 0.010^3/ul Basophils # 0.010^3/ul Nucleated Red Blood Cells # 0.010^3/ul Prothrombin Time 14.7Sec Prothrombin Time Ratio 1.1 INR International Normalized Ratio 1.15 Activated Partial Thromboplast Time Pending Sodium Level 133mmol/L Potassium Level 4.1mmol/L Chloride Level 96mmol/L Carbon Dioxide Level 30mmol/L Anion Gap 11 Blood Urea Nitrogen 11mg/dl Creatinine 0.81mg/dl Glucose Level 120mg/dl Calcium Level 8.4mg/dl Total Bilirubin 0.8mg/dl Direct Bilirubin 0.00mg/dl Indirect Bilirubin 0.8mg/dl Aspartate Amino Transf (AST/SGOT) 42IU/L Alanine Aminotransferase (ALT/SGPT) 28IU/L Alkaline Phosphatase 121IU/L Total Protein 6.4g/dl Albumin 2.6g/dl Globulin 3.80g/dl Albumin/Globulin Ratio 0.68 Lipase 92U/L Current Medications Medications (Trade) Dose Ordered Sig/Rohit Route PRN Reason Start Time Stop Time Status Last Admin Dose Admin Sodium Chloride 500 ml @ 500 mls/hr Q1H STAT IV 07/13/17 10:07 07/13/17 11:06 DC 07/13/17 10:27 Albumin Human (Albumin Human 25%) 50 ml @ 100 mls/hr ONCE ONCE IV 07/13/17 10:30 07/13/17 10:59 DC Aspirin (Aspirin) 162 mg ONCE ONCE PO 07/13/17 12:00 07/13/17 12:01 Procedures/MDM EKG, MONITORS, & DIAGNOSTIC IMAGING: CT brain: No evidence of acute intracranial process per radiologist EKG: I reviewed and interpreted a 12-lead EKG. Rhythm: Normal sinus rhythm Ectopy: None Intervals: No abnormalities ST segments: No elevations or depressions T waves: No contiguous inversions Chest x-ray: I reviewed and interpreted a 1 view of the chest Mediastinum: No enlargement Cardiac silhouette: No cardiomegaly Airspace: Clear lung schwartz bilaterally without evidence of pneumothorax Bones: No evidence of fracture Ultrasound-guided paracentesis pending LAB INTERPRETATION: No significant leukocytosis MEDICAL DECISION MAKING: The patient presents with multiple complaints. One is benign and the patient requires a likely large volume therapeutic paracentesis. The patient does have slightly low blood pressure which has been reported as stable for the patient over the last several months. I believe a small dose of normal saline and 25% albumin would be reasonable. The patient will benefit from therapeutic paracentesis, no evidence of SBP. The patient's blood pressure does not reflect GI bleed or other acute process such as sepsis. More concerning, is the fact that the patient has had 24 hours of weakness to left upper and lower extremity. This is concerning for stroke. The patient does not meet any criteria for stroke code activation or TPA given her window of presentation is likely 24 hours if not longer. The patient will benefit from CT brain, aspirin if negative for bleed and inpatient hospitalization for stroke workup, MRI imaging etc. ER COURSE: Laboratory testing and diagnostic imaging is otherwise unrevealing. The patient will be admitted for further management of concern for stroke. Aspirin provided. I kept the patient and/or family informed of laboratory and diagnostic imaging results throughout the emergency room course. DISPOSITION PLAN: Telemetry admission to rule out stroke CONSULTATION: Accepting care team and consultations: I discussed the current laboratory data, diagnostic imaging and emergency care provided. Admitting team: Dr. Johnston on for Dr. Ng Admitting team indication: Insurance directed, [facility] Departure Diagnosis: Primary Impression: History of cirrhosis Additional Impressions: Ascites Qualified Code: R18.8 - Other ascites Left-sided weakness Condition: Stable ANAIS BLEVINS MD Jul 13, 2017 11:53
[2017-07-13] MEDS ORDERED: ASPIRIN 81 MG TAB PO ONE (12:00)
[2017-07-13 12:11] LABS: PARTIAL THROMBOPLASTIN TIME 31.4 Sec (25.0-35.0)
[2017-07-13] MEDS ORDERED: ONDANSETRON 4 MG INJ IV PRN ×2 (13:00→18:30)
[2017-07-13] MEDS ORDERED: ACETAMINOPHEN 325 MG TAB PO PRN ×2 (13:00→18:30)
[2017-07-13] MEDS ORDERED: LIDOCAINE 1% (MPF) 5 ML VIAL ONE (13:40)
--- NOTE | 2017-07-13 14:44 | RADRPT ---
PROCEDURE: US guided paracentesis CLINICAL INDICATION: Ascites TECHNIQUE: Multiple sonographic images were obtained through the patient's abdomen. A site in the patient's RIGHT lower abdomen was selected and marked. The area was prepped and draped in the usual sterile fashion. 1% lidocaine was utilized. A 19-gauge Yueh needle was advanced into the peritonea l space and the introducer was connected to a vacuum drainage bottle. A total of 3600 cc of clear y ellow fluid were drained at the end of the procedure. The patient tolerated the procedure well. COMPARISON: None FINDINGS: Ascites. RPTAT: AA IMPRESSION: Successful paracentesis. .Yovani Munroe MD, Date Time Electronically viewed and signed by .Yovani Munroe MD, on 07/13/2017 14:44 .S/
[2017-07-13] MEDS ORDERED: SOD CHLORIDE 0.9% 1,000 ML IV STA (15:22)
[2017-07-13] MEDS ORDERED: NORepinephrine 8MG/250 ML (PMX 250 ML IV STA (15:51)
[2017-07-13] MEDS ORDERED: LIDOCAINE 1% (MPF) 5 ML VIAL SC ONE (16:00)
[2017-07-13] MEDS ORDERED: FURO40TA4 PO (17:14)
[2017-07-13] MEDS ORDERED: SOD CHLORIDE 0.9% 1,000 ML IV SCH (18:20)
[2017-07-13] MEDS ORDERED: HYDROCODONE/APAP (5/325) TAB PO PRN (18:30)
[2017-07-13] MEDS ORDERED: NACL 0.9% 3 ML SYG IV SCH (18:30)
--- NOTE | 2017-07-13 18:30 | QN ---
Documentation Comment Pt seem and examined at bedside #[id number] REI FONSECA MD Jul 13, 2017 18:30
[2017-07-13] MEDS ORDERED: SOD CHLORIDE 0.9% 100 ML ONE (18:35)
[2017-07-13] MEDS ORDERED: GLUCAGON 1 MG INJ IM PRN (19:00)
[2017-07-13] MEDS ORDERED: GLUCOSE GEL 15 GRAM TUBE BUCCAL PRN (19:00)
[2017-07-13] MEDS ORDERED: GLUCOSE GEL 15 GRAM TUBE PO PRN ×2 (19:00)
[2017-07-13] MEDS ORDERED: DEXTROSE 50% 50 ML SYRINGE IV PRN ×2 (19:00)
--- NOTE | 2017-07-13 19:12 | RADRPT ---
PROCEDURE: XR Chest. CLINICAL INDICATION: PICC line placement. TECHNIQUE: Single frontal chest x-ray. COMPARISON: 07/13/2017 FINDINGS: New left-sided PICC line with the tip coiled overlying the mediastinum. Heart is normal size. There is no congestive heart failure.. There is bibasilar atelectasis.. There is no pleural effusion. T here is no pneumothorax. Bones are unchanged.. IMPRESSION: New left PICC line with tip coiled in the mediastinum. Bibasilar atelectasis. RPTAT: HMVK .Manolo Renteria MD, Date Time Electronically viewed and signed by .Manolo Renteria MD, on 07/13/2017 19:12 .K/
--- NOTE | 2017-07-13 19:15 | RADRPT ---
PROCEDURE: XR Chest. CLINICAL INDICATION: PICC line placement. TECHNIQUE: Single frontal chest x-ray. COMPARISON: 07/13/2017 FINDINGS: The left PICC line has been repositioned with the tip in the SVC. Heart is normal in size.. There i s no congestive heart failure.. There is unchanged bilateral plate-like atelectasis.. There is no p leural effusion. There is no pneumothorax. The osseous structures are unremarkable. IMPRESSION: Left PICC line repositioned with tip in the SVC. Otherwise no change. RPTAT: HMVK .Manolo Renteria MD, Date Time Electronically viewed and signed by .Manolo Renteria MD, on 07/13/2017 19:15 .K/
[2017-07-13] MEDS: INSULIN ASPART [NOVOLOG] 3 ML PEN SC SCH (21:00)
[2017-07-13] MEDS: CEFTRIAXONE 1 GM/50 ML (PMX) 50 ML IVPB SCH (22:20)
[2017-07-14] VITALS (43 sets, daily range): BP systolic 80–126; BP diastolic 56–73; PULSE 46–116; RESP 17–30; TEMP 98; Ht 162.6 cm; Wt 53.8 kg
--- NOTE | 2017-07-14 00:23 | RADRPT ---
PROCEDURE: MRI Brain without contrast. CLINICAL INDICATION: Weakness and evaluate for stroke TECHNIQUE: An MRI of the brain was performed on a high resolution hi-definition 3.0 Kareen MRI scan ner utilizing the following sequences: Sagittal and axial T1 weighted, axial T2 weighted, axial dif fusion weighted with ADC mapping, coronal GRE, and axial FLAIR. COMPARISON: CT brain 07/13/2017 FINDINGS: The scalp and calvarium are normal. The visualized orbits are normal bilaterally. The bilateral para nasal sinuses are remarkable for mild mucosal thickening in the bilateral ethmoid and left greater t pinedo right maxillary sinus. The bilateral mastoid air cells are incompletely pneumatized. The bilater al middle ear cavities are clear. The ventricles, sulci and cisterns are age appropriate with mild diffuse volume loss. No extra-axial fluid collections are present. No evidence of intracranial hemorrhage, mass effect or midline shif t is present. Punctate ovoid foci of hyperintensity on FLAIR and T2-weighted sequences are present i n the bilateral subcortical white matter, centrum semiovale, and periventricular white matter. While these are nonspecific these are most compatible with mild chronic microvascular ischemic disease. N o diffusion weighted abnormalities are seen to suggest the presence of acute ischemia or recent infa rct. No hypointense signal abnormalities are seen on the GRE images to suggest the presence of bloo d degradation products. Normal flow voids are visible in the proximal intracranial arteries and dural sinuses, indicating patency. IMPRESSION: 1. No evidence for acute intracranial infarcts, hemorrhage, or acute intracranial pathology. 2. Mild chronic microvascular ischemic disease and diffuse volume loss. 3. Mild chronic bilateral ethmoid and maxillary sinus disease. RPTAT: HDC .Alva Granados MD, MD Date Time Electronically viewed and signed by .Alva Granados MD, MD on 07/14/2017 00:23 .C/
[2017-07-14] MEDS: traMADol 50 MG TAB PO PRN (00:32)
[2017-07-14] MEDS: ACCU-CHEK XX SCH (02:00)
--- NOTE | 2017-07-14 02:50 | HP ---
DATE OF ADMISSION: 07/13/2017 REASON FOR ADMISSION: Hypotension and weakness. HISTORY OF PRESENT ILLNESS: This is a 62-year-old woman with a past medical history of autoimmune c irrhosis, who gets weekly/biweekly paracentesis at an outside hospital, presented to the emergency d [facility] after having increased abdominal pain, distention for past 1 week. According to history, currently obtained from the family which is present at the bedside, according to the family, patient has autoimmune cirrhosis and initially followed by [facility], and currently has been followed by Dr. Perez in [place]. Her normal blood pressure at home ranges from systolic of 80s. The patient goes to weekly paracentesis at the [facility] in [place]. Her last paracentesis was abou t a week ago. She started noticing increased abdominal distention and it was hard for her to breath e, and came to the emergency department for paracentesis. According to the family, the patient had also been noticing weakness and numbness on the left side of the body, especially the left side of t he face, left arm and left leg since yesterday. Noticed some pain in the left eye, but denied any h eadache, any blurry vision, any speech and swallowing issues. On arrival to ED, initial blood pressure was 89/60 to 95/63. The patient went for paracentesis and had 3.6 liters removed and after that, the patient's systolic blood pressure dropped to 60s. The pa tient was feeling dizzy. Currently patient was given 2 liters normal saline again, and then also al bumin boluses and I was called in for further management. PAST MEDICAL HISTORY: 1. History of autoimmune cirrhosis, getting weekly paracentesis. 2. Diabetes. 3. History of hepatic encephalopathy. 4. Dyspepsia. 5. History of DVT. MEDICATIONS: Taking at home are: 1. Mycophenolate, questionable. 2. Lasix 40 b.i.d. 3. Protonix. 4. Lantus 10 at night. ALLERGIES: NONE. PAST SURGICAL HISTORY: , appendectomy. SOCIAL HISTORY: Denies any history of smoking, alcohol or any drug use. Currently lives at home wi th the family. FAMILY HISTORY: Noncontributory. REVIEW OF SYSTEMS: The patient denies any nausea, vomiting, diarrhea, any headache, any blurry visi on, has complained of weakness on the left arm and left leg. Denies any urinary symptoms. Denies a ny fevers and chills. Denies any hematemesis, any melena, any bright blood per rectum. PHYSICAL EXAMINATION: VITAL SIGNS: Initial blood pressure was 89/60, dropped down to 65 status post paracentesis, current ly 79/52, heart rate 71. The patient is afebrile with respiratory rate 15. GENERAL: Patient does not appear to be in any acute distress. The patient was feeling dizzy earlie r. HEENT: Pupils equal, reactive to light. NECK: Supple, no JVD. HEART: Regular rate and rhythm. LUNGS: Clear to auscultate bilaterally. ABDOMEN: Soft, nontender, nondistended, positive normoactive bowel status post paracentesis. EXTREMITIES: Some trace edema. DIAGNOSTIC DATA: Sodium of 133, potassium 4.1, chloride 96, bicarbonate 30, BUN of 11, creatinine 0 .8. White count of 6.8, hemoglobin 11.8, platelet count 198. INR is 1.1. IMAGING: Chest x-ray was done that showed right lower lobar atelectasis, no active cardiopulmonary disease. CT of the head is no acute intracranial hemorrhage, [id number] intracranial atherosc lerosis, mild general cerebral volume loss. ASSESSMENT AND PLAN: This is a 62-year-old woman presenting with: 1. History of autoimmune cirrhosis, status post weekly paracentesis, now presenting with increased abdominal distention status post paracentesis with hypotension. According to the family, the patien t's blood pressure was 80, but dropped down to 60s, which was significant with dizziness. Could be secondary to loss of fluid through paracentesis, plus added with patient taking Lasix at home. Also , rule out adrenal insufficiency. 2. Left-sided weakness, numbness, especially patient has weakness on the left leg. Rule out stroke . 3. History of cirrhosis. 4. Hepatic encephalopathy. 5. Diabetes. PLAN: At this period of time, patient has received normal saline boluses, albumin. Patient is blu g to ICU for some pressor support. We will call manager diesel. We will likely start the patient on m idodrine. Fluid has been sent. We will panculture the patient. We will also check for TSH, cortis ol. We will get an MRI of the brain. Also, call neuro consultation, GI and rest of the treatment w ill depend on the patient's hospitalization course. Dictated By: REI VIDALES Conf#: [id number] DID#: [id number]
[2017-07-14] MEDS: INSULIN ASPART [NOVOLOG] 3 ML PEN SC SCH ×4 (03:26→20:23)
[2017-07-14 06:10] LABS: BASOPHIL # 0.1 10^3/ul (0.0-0.1); BASOPHILS % 0.9 % (0.0-2.0); EOSINOPHILS % 0.3 % (0.0-7.0); HEMATOCRIT 31.1 % (37.0-47.0); HEMOGLOBIN 10.2 g/dl (12.0-16.0); LYMPHOCYTES # 1.5 10^3/ul (0.8-2.9); LYMPHOCYTES % 22.8 % (15.0-51.0); MEAN CORPUSCULAR HEMOGLOBIN 30.4 pg (29.0-33.0); MEAN CORPUSCULAR HGB CONC 32.8 g/dl (32.0-37.0); MEAN CORPUSCULAR VOLUME 92.8 fl (82.0-101.0); MEAN PLATELET VOLUME 8.8 fl (7.4-10.4); MONOCYTE # 0.6 10^3/ul (0.3-0.9); MONOCYTES % 8.8 % (0.0-11.0); NEUTROPHIL # 4.4 10^3/ul (1.6-7.5); NEUTROPHILS % 66.7 % (39.0-77.0); PLATELET COUNT 224 10^3/UL (140-415); RED BLOOD COUNT 3.35 10^6/ul (4.20-5.40); RED CELL DISTRIBUTION WIDTH 14.6 % (11.5-14.5); WHITE BLOOD COUNT 6.6 10^3/ul (4.8-10.8)
[2017-07-14 06:58] LABS: ALBUMIN 2.3 g/dl (3.3-4.9); ALBUMIN/GLOBULIN RATIO 0.79; BILIRUBIN,INDIRECT 0.7 mg/dl (0-1.1); BILIRUBIN,TOTAL 0.7 mg/dl (0.2-1.3); CALCIUM 7.9 mg/dl (8.4-10.2); CREATININE 0.67 mg/dl (0.44-1.00); POTASSIUM 3.4 mmol/L (3.5-5.1); TOTAL PROTEIN 5.2 g/dl (6.1-8.1)
[2017-07-14] MEDS ORDERED: POTASSIUM CHLORIDE (SR) 20 MEQ TAB PO STA (08:59)
[2017-07-14] MEDS: MIDODRINE 5 MG TAB PO SCH ×3 (09:19→20:17)
[2017-07-14] MEDS: FAMOTIDINE 20 MG TAB PO SCH ×2 (09:19→20:16)
[2017-07-14] MEDS: ASPIRIN 81 MG TAB PO SCH (09:19)
[2017-07-14] MEDS: ENOXAPARIN 40 MG/0.4 ML SYG SC SCH (09:20)
[2017-07-14] MEDS ORDERED: NORepinephrine 8MG/250 ML (PMX 250 ML IV SCH (11:00)
[2017-07-14] MEDS ORDERED: INFLUENZA VIRUS VACCINE 0.5 ML SYG IM* ONE (12:00)
--- NOTE | 2017-07-14 12:56 | CONS ---
Date/Time of Note Date/Time of Note DATE: 07/14/17 TIME: 12:53 Assessment/Plan Assessment/Plan Chief Complaint/Hosp Course 62 yo female with autoimmune cirrhosis admitted with abdominal pain, left arm and leg weakness. MRI Brain: 1. No evidence for acute intracranial infarcts, hemorrhage, or acute intracranial pathology. 2. Mild chronic microvascular ischemic disease and diffuse volume loss. 3. Mild chronic bilateral ethmoid and maxillary sinus disease. Recommend: repeat MRI to evaluate for possible brainstem ischemia MRI C Spine will follow Problems: Consultation Date/Type/Reason Admit Date/Time Jul 13, 2017 at 12:45 Date of Consultation: Jul 14, 2017 Type of Consultation: Neurology Reason for Consultation evaluate for CVA Referring Provider: REI FONSECA MD Hx of Present Illness 62 year old female with hx of autoimmune cirrhosis receives biweekly paracentesis at OSH admitted w increased abdominal pain, distention for 1 week. Yesterday she began having some weakness of her left arm and increased weakness to her left leg unable to ambulate. She denies any headaches, no difficulty speaking, no visual symptoms. On admission hypotensive w SBP 90's received paracentesis with SBP down to 60 c/o dizziness. She has no prior hx of CVA Past Surgical History Past Surgical Hx: endoscopy, other Social History Smoking Status: Never smoker Exam/Review of Systems Vital Signs Vitals Vital Signs Date Time Temp Pulse Resp B/P Pulse Ox O2 Delivery O2 Flow Rate FiO2 07/14/17 10:15 80 21 94/66 100 07/14/17 10:00 98.0 Room Air Exam Constitutional: alert, frail, oriented Neurological: [employer] II-XII intact, DTR's symmetric (left arm 3/5 weakness, left leg 2/5 compared to right), nl mental status, nl speech Results Result Diagram: 07/14/17 0528 07/14/17 0529 Results 24 hrs Laboratory Tests Test 07/14/17 01:59 07/14/17 03:17 07/14/17 05:28 07/14/17 05:29 Bedside Glucose 196 204 White Blood Count 6.6 Red Blood Count 3.35 L Hemoglobin 10.2 L Hematocrit 31.1 L Mean Corpuscular Volume 92.8 Mean Corpuscular Hemoglobin 30.4 Mean Corpuscular Hemoglobin Concent 32.8 Red Cell Distribution Width 14.6 H Platelet Count 224 Mean Platelet Volume 8.8 Neutrophils % 66.7 Lymphocytes % 22.8 Monocytes % 8.8 Eosinophils % 0.3 Basophils % 0.9 Nucleated Red Blood Cells % 0.0 Neutrophils # 4.4 Lymphocytes # 1.5 Monocytes # 0.6 Eosinophils # 0.0 Basophils # 0.1 Nucleated Red Blood Cells # 0.0 Random Cortisol 8.0 Sodium Level 135 Potassium Level 3.4 L Chloride Level 102 Carbon Dioxide Level 27 Anion Gap 9 Blood Urea Nitrogen 9 Creatinine 0.67 Glucose Level 216 Calcium Level 7.9 L Total Bilirubin 0.7 Direct Bilirubin 0.00 Indirect Bilirubin 0.7 Aspartate Amino Transf (AST/SGOT) 29 Alanine Aminotransferase (ALT/SGPT) 27 Alkaline Phosphatase 86 Total Protein 5.2 #L Albumin 2.3 L Globulin 2.90 Albumin/Globulin Ratio 0.79 Thyroid Stimulating Hormone (TSH) 0.812 Medications Medications Current Medications Sodium Chloride (NS) 1,000 ml @ 40 mls/hr Q24H IV Last administered on 22:20; Admin Dose 40 MLS/HR; Start 07/13/17 at 18:20 Ondansetron HCl (Zofran Inj) 4 mg Q6H PRN IV NAUSEA AND/OR VOMITING; Start at 18:30 Acetaminophen (Tylenol Tab) 650 mg Q6H PRN PO PAIN LEVEL 1-3 OR FEVER; Start 07/13/17 at 18:30 Acetaminophen/ Hydrocodone Bitart (Benton (5/325)) 1 tab Q6H PRN PO MODERATE PAIN LEVEL 4-6; Start 07/13/17 at 18:30 Famotidine (Pepcid) 20 mg Q12 PO Last administered on 07/14/17 09:19; Admin Dose 20 MG; Start 07/13/17 at 21:00 Enoxaparin Sodium (Lovenox) 40 mg DAILY SC Last administered on 07/14/17 09: 20; Admin Dose 40 MG; Start 07/14/17 at 09:00 Midodrine 5 mg 5 mg TID PO Last administered on 07/14/17 09:19; Admin Dose 5 MG; Start 07/13/17 at 21:00 Ceftriaxone Sodium (Rocephin) 50 ml @ 100 mls/hr Q24H IVPB Last administered on 07/13/17 22:20; Admin Dose 100 MLS/HR; Start 07/13/17 at 18:30 Aspirin (Aspirin) 81 mg DAILY PO Last administered on 07/14/17 09:19; Admin Dose 81 MG; Start 07/14/17 at 09:00 IV Flush (NS 10 ml) 10 ml PRN PRN IV IV PROTOCOL; Start 07/13/17 at 18:30 Diagnostic Test (Pha) (Accu-Chek) 1 ea 02 XX ; Start 07/14/17 at 02:00 Miscellaneous Information 1 ea NOTE XX ; Start 07/13/17 at 19:00 Glucose (Glutose) 15 gm Q15M PRN PO DECREASED GLUCOSE; Start 07/13/17 at 19:00 Glucose (Glutose) 22.5 gm Q15M PRN PO DECREASED GLUCOSE; Start 07/13/17 at 19: 00 Dextrose (D50w Syringe) 25 ml Q15M PRN IV DECREASED GLUCOSE; Start 07/13/17 at 19:00 Dextrose (D50w Syringe) 50 ml Q15M PRN IV DECREASED GLUCOSE; Start 07/13/17 at 19:00 Glucagon (Glucagen) 1 mg Q15M PRN IM DECREASED GLUCOSE; Start 07/13/17 at 19: 00 Glucose (Glutose) 15 gm Q15M PRN BUCCAL DECREASED GLUCOSE; Start 07/13/17 at 19:00 Tramadol HCl 50 mg 50 mg Q6H PRN PO PAIN Last administered on 07/14/17 00:32 ; Admin Dose 50 MG; Start 07/14/17 at 00:00 Norepinephrine 250 ml @ 1.875 mls/ hr TITRATE IV ; Start 07/14/17 at 11:00; Stop 07/14/17 at 22:00 Norepinephrine/ Dextrose (Levophed/D5W) 500 ml @ 0 mls/hr TITRATE IV ; Start at 22:00 MANUEL MOREIRA MD Jul 14, 2017 12:56
--- NOTE | 2017-07-14 14:29 | PN ---
Date/Time of Note Date/Time of Note DATE: 07/14/17 TIME: 14:14 Assessment/Plan VTE Prophylaxis VTE Prophylaxis Intervention: contraindicated VTE Contraindication Reason: bleeding Lines/Catheters IV Catheter Type (from Nrs): PICC Line Central line still needed: Yes Urinary Cath still in place: No Assessment/Plan Chief Complaint/Hosp Course 62-year-old woman presenting with: 1. History of autoimmune cirrhosis, status post weekly paracentesis, now presenting with increased abdominal distention status post paracentesis with hypotension. According to the family, the patient's blood pressure was 80, but dropped down to 60s, which was significant with dizziness. Could be secondary to loss of fluid through paracentesis, plus added with patient taking Lasix at home. Also, rule out adrenal insufficiency. 2. Left-sided weakness, numbness, especially patient has weakness on the left leg. Rule out stroke. 3. History of cirrhosis. 4. Hepatic encephalopathy. 5. Diabetes. - Repeat MRI brain per Dr Hill and MRI C spine - c/w ASA - ECHO pending - Titrate up midodrine - ISS Problems: Subjective 24 Hr Interval Summary Free Text/Dictation Pt feels better Just titrated off levophed Exam/Review of Systems Vital Signs Vitals Vital Signs Date Time Temp Pulse Resp B/P Pulse Ox O2 Delivery O2 Flow Rate FiO2 07/14/17 13:00 83 21 97/66 97 Room Air 07/14/17 12:00 98.0 Exam GENERAL: Patient does not appear to be in any acute distress. The patient was feeling dizzy earlier. HEENT: Pupils equal, reactive to light. NECK: Supple, no JVD. HEART: Regular rate and rhythm. LUNGS: Clear to auscultate bilaterally. ABDOMEN: Soft, nontender, nondistended, positive normoactive bowel status post paracentesis. EXTREMITIES: Some trace edema Results Result Diagram: 07/14/17 0528 07/14/17 0529 Results 24 hrs Laboratory Tests Test 07/14/17 01:59 07/14/17 03:17 07/14/17 05:28 07/14/17 05:29 Bedside Glucose 196 204 White Blood Count 6.6 Red Blood Count 3.35 L Hemoglobin 10.2 L Hematocrit 31.1 L Mean Corpuscular Volume 92.8 Mean Corpuscular Hemoglobin 30.4 Mean Corpuscular Hemoglobin Concent 32.8 Red Cell Distribution Width 14.6 H Platelet Count 224 Mean Platelet Volume 8.8 Neutrophils % 66.7 Lymphocytes % 22.8 Monocytes % 8.8 Eosinophils % 0.3 Basophils % 0.9 Nucleated Red Blood Cells % 0.0 Neutrophils # 4.4 Lymphocytes # 1.5 Monocytes # 0.6 Eosinophils # 0.0 Basophils # 0.1 Nucleated Red Blood Cells # 0.0 Random Cortisol 8.0 Sodium Level 135 Potassium Level 3.4 L Chloride Level 102 Carbon Dioxide Level 27 Anion Gap 9 Blood Urea Nitrogen 9 Creatinine 0.67 Glucose Level 216 Calcium Level 7.9 L Total Bilirubin 0.7 Direct Bilirubin 0.00 Indirect Bilirubin 0.7 Aspartate Amino Transf (AST/SGOT) 29 Alanine Aminotransferase (ALT/SGPT) 27 Alkaline Phosphatase 86 Total Protein 5.2 #L Albumin 2.3 L Globulin 2.90 Albumin/Globulin Ratio 0.79 Thyroid Stimulating Hormone (TSH) 0.812 Test 07/14/17 13:24 Bedside Glucose 156 Medications Medications Current Medications Sodium Chloride (NS) 1,000 ml @ 40 mls/hr Q24H IV Last administered on 22:20; Admin Dose 40 MLS/HR; Start 07/13/17 at 18:20 Ondansetron HCl (Zofran Inj) 4 mg Q6H PRN IV NAUSEA AND/OR VOMITING; Start at 18:30 Acetaminophen (Tylenol Tab) 650 mg Q6H PRN PO PAIN LEVEL 1-3 OR FEVER; Start 07/13/17 at 18:30 Acetaminophen/ Hydrocodone Bitart ([place] (5/325)) 1 tab Q6H PRN PO MODERATE PAIN LEVEL 4-6; Start 07/13/17 at 18:30 Famotidine (Pepcid) 20 mg Q12 PO Last administered on 07/14/17 09:19; Admin Dose 20 MG; Start 07/13/17 at 21:00 Enoxaparin Sodium (Lovenox) 40 mg DAILY SC Last administered on 07/14/17 09: 20; Admin Dose 40 MG; Start 07/14/17 at 09:00 Midodrine 5 mg 5 mg TID PO Last administered on 07/14/17 13:25; Admin Dose 5 MG; Start 07/13/17 at 21:00 Ceftriaxone Sodium (Rocephin) 50 ml @ 100 mls/hr Q24H IVPB Last administered on 07/13/17 22:20; Admin Dose 100 MLS/HR; Start 07/13/17 at 18:30 Aspirin (Aspirin) 81 mg DAILY PO Last administered on 07/14/17 09:19; Admin Dose 81 MG; Start 07/14/17 at 09:00 IV Flush (NS 10 ml) 10 ml PRN PRN IV IV PROTOCOL; Start 07/13/17 at 18:30 Diagnostic Test (Pha) (Accu-Chek) 1 ea 02 XX ; Start 07/14/17 at 02:00 Miscellaneous Information 1 ea NOTE XX ; Start 07/13/17 at 19:00 Glucose (Glutose) 15 gm Q15M PRN PO DECREASED GLUCOSE; Start 07/13/17 at 19:00 Glucose (Glutose) 22.5 gm Q15M PRN PO DECREASED GLUCOSE; Start 07/13/17 at 19: 00 Dextrose (D50w Syringe) 25 ml Q15M PRN IV DECREASED GLUCOSE; Start 07/13/17 at 19:00 Dextrose (D50w Syringe) 50 ml Q15M PRN IV DECREASED GLUCOSE; Start 07/13/17 at 19:00 Glucagon (Glucagen) 1 mg Q15M PRN IM DECREASED GLUCOSE; Start 07/13/17 at 19: 00 Glucose (Glutose) 15 gm Q15M PRN BUCCAL DECREASED GLUCOSE; Start 07/13/17 at 19:00 Tramadol HCl 50 mg 50 mg Q6H PRN PO PAIN Last administered on 07/14/17 00:32 ; Admin Dose 50 MG; Start 07/14/17 at 00:00 Norepinephrine 250 ml @ 1.875 mls/ hr TITRATE IV ; Start 07/14/17 at 11:00; Stop 07/14/17 at 22:00 Norepinephrine/ Dextrose (Levophed/D5W) 500 ml @ 0 mls/hr TITRATE IV ; Start at 22:00 REI FONSECA MD Jul 14, 2017 14:18
--- NOTE | 2017-07-14 14:52 | RADRPT ---
PROCEDURE: US guidance for PICC line CLINICAL INDICATION: PICC line placement TECHNIQUE: Multiple real-time images were acquired of the patient's arm utilizing a high resolutio n transducer. This was performed by the PICC line nurse for venous access. COMPARISON: None FINDINGS: See impression. IMPRESSION: Ultrasound guidance for PICC line placement. There is a patent and compressible left upper extremity vein. RPTAT: AA Physician Satish Date Time Electronically viewed and signed by Physician Satish on 07/14/2017 14:51 RA/
--- NOTE | 2017-07-14 17:53 | RADRPT ---
Echocardiogram Report Patient Name: RUBEN COOMBS Gender: Female Date: 1955 Study Date: 14-Jul-2017 Bar Helper: Reg Colmenares [facility] Location: 114-A Ref. Physician: REI FONSECA Quality: Adequate Procedures: Transthoracic echocardiogram with complete 2D, M-Mode, and doppler examination. Indications: r/o stroke. 2D/M Mode Doppler Measurement Value Normal Ranges Measurement Value Normal Ranges LVIDd 2D 4.3 3.5 - 5.6 cm AV Peak Prateek 1.3 m/sec LVIDs 2D 2.7 2.1 - 4.1 cm AV Peak PG 6.0 mmHg FS 2D 37.6 % LVOT Peak Prateek 1.1 m/sec LVPWd 2D 0.8 0.6 - 1.1 cm LVOT Peak PG 5.0 mmHg IVSd 2D 0.9 0.6 - 1.1 cm MV E Peak Prateek 0.9 m/sec IVS/LVPW 2D 1.1 MV A Peak Prateek 1.0 m/sec AoR Diam 2D 3.0 2.0 - 3.7 cm MV E/A 0.9 LA/Ao 2D 1 0 - 1 MV Decel Time 254 msec EDV 2D 80.1 cm3 MV E/A 0.9 ESV 2D 19.5 cm3 TR Peak Prateek 2.7 m/sec LA Dimen 2D 3.3 2.3 - 4.0 cm TR Peak PG 30.0 mmHg RVSP 33.0 mmHg Findings Left Ventricle: Normal left ventricular systolic function. Normal left ventricular cavity size. Normal left ventricular wall thickness. Ejection fraction is visually estimated at 6065 %. Abnormal Diastolic Function. Right Ventricle: Normal right ventricular size. Normal right ventricular systolic function. Left Atrium: The left atrium is normal in size. Right Atrium: The right atrium is normal in size. Mitral Valve: Mild mitral leaflet calcification. Mild mitral annular calcification. Trace mitral regurgitation. Aortic Valve: Normal appearance of the aortic valve. No significant aortic stenosis or insufficiency. Tricuspid Valve: Normal appearance of the tricuspid valve. Estimated peak PA systolic pressure 33 mmHg. There is mild tricuspid regurgitation. Pulmonic Valve: Pulmonic valve not well visualized. There is trace pulmonic regurgitation. Pericardium: Normal pericardium with no significant pericardial effusion. Aorta: Normal aortic root. IVC: Normal size and normal respiratory collapse consistent with normal right atrial pressure. Conclusions 1.Normal left ventricular systolic function. Normal left ventricular cavity size. Normal left ventricular wall thickness. Ejection fraction is visually estimated at 60-65 %. Abnormal Diastolic Function. 2.Mild mitral leaflet calcification. Mild mitral annular calcification. Trace mitral regurgitation. 3.Normal appearance of the tricuspid valve. Estimated peak PA systolic pressure 33 mmHg. There is mild tricuspid regurgitation. 4.Pulmonic valve not well visualized. There is trace pulmonic regurgitation. Electronically Signed By: Bob Luciano 14-Jul-2017 17:52:40 -0700 Patient Name: RUBEN COOMBS Study Date: 14-Jul-2017 [id number]
[2017-07-14] MEDS: CEFTRIAXONE 1 GM/50 ML (PMX) 50 ML IVPB SCH (18:01)
[2017-07-15] VITALS (12 sets, daily range): BP systolic 81–114; BP diastolic 50–70; PULSE 64–79; RESP 18–19
[2017-07-15] MEDS: ACCU-CHEK XX SCH (02:00)
--- NOTE | 2017-07-15 02:33 | CONS ---
DATE OF ADMISSION: 07/13/2017 DATE OF CONSULTATION: HISTORY OF PRESENT ILLNESS: The patient is a 62-year-old female with autoimmune hepatitis, cirrhosi s of liver. She is on CellCept started by [facility] station supervisor and complains of abdominal dist ention. Patient had a paracentesis done; almost 3.5 liters of fluid was removed, and the patient be came hypotensive, so was transferred to intensive care unit for further management. The patient was given again 2 liters of fluid to bring up the blood pressure. No nausea, no vomiting, no chest joni n, no shortness of breath, no fever, no chills. She had some pain in the left eye. No headache. PAST MEDICAL HISTORY: 1. Autoimmune hepatitis, getting weekly paracenteses. 2. Diabetes mellitus. 3. Hepatic encephalopathy. 4. Dyspepsia with a thickened gastric fold. 5. History of DVT. MEDICATIONS: She is on: 1. Mycophenolate. 2. Lasix. 3. Protonix. 4. Lantus. ALLERGIES: NONE. PAST SURGICAL HISTORY: and appendicectomy. SOCIAL HISTORY: No smoking, no alcohol, no drugs. FAMILY HISTORY: Nothing contributory. REVIEW OF SYSTEMS: Otherwise negative. PHYSICAL EXAMINATION: GENERAL: Alert, awake, immediately recognized me. VITAL SIGNS: Stable. HEENT: Unremarkable. NECK: Supple, no thyromegaly, no lymphadenopathy. CARDIOVASCULAR: No murmur, gallop or click. LUNGS: Clear. ABDOMEN: Soft. Has got mild ascites. EXTREMITIES: No edema. CENTRAL NERVOUS SYSTEM: Grossly within normal limits without any hepatic flap. LABORATORY DATA: Her hematocrit is stable. WBC is also stable. LFTs grossly within normal limits. Albumin is 2.3. IMPRESSION: 1. Hypotension, which is chronically due to the liver disease, cirrhosis. 2. Autoimmune hepatitis with cirrhosis. 3. Portal hypertension with ascites. 4. Status post paracentesis; 3.5 liters of fluid was removed. 5. Diabetes mellitus. 6. Anemia. 7. Gastritis with thickened fold. PLAN: At this point, is to continue present care. If the blood pressure goes less than 80, will gi ve her albumin and not normal saline or any kind of IV fluid which will increase her ascites. The p atient is started on midodrine and if the blood pressure is stable or above 95 we can give her the l ow dose of Aldactone to prevent rapid accumulation of ascitic fluid. The patient is also on ceftria xone and will review the fluid report once it is ready. Dictated By: LAURA JOHNSTON/REI Conf#: [id number] DID#: [id number] CC: REI FONSECA;*EndCC*
[2017-07-15] MEDS: INSULIN ASPART [NOVOLOG] 3 ML PEN SC SCH ×4 (07:55→20:24)
[2017-07-15] MEDS: MIDODRINE 5 MG TAB PO SCH ×3 (08:37→20:24)
[2017-07-15] MEDS: FAMOTIDINE 20 MG TAB PO SCH ×2 (08:37→20:23)
[2017-07-15] MEDS: ASPIRIN 81 MG TAB PO SCH (08:37)
[2017-07-15] MEDS: ENOXAPARIN 40 MG/0.4 ML SYG SC SCH (08:41)
--- NOTE | 2017-07-15 09:58 | CONS ---
Date/Time of Note Date/Time of Note DATE: 07/15/17 TIME: 09:57 Assessment/Plan Assessment/Plan Additional Assessment/Plan IMPRESSION: 1. Hypotension, which is chronically due to the liver disease, cirrhosis. 2. Autoimmune hepatitis with cirrhosis. 3. Portal hypertension with ascites. 4. Status post paracentesis; 3.5 liters of fluid was removed. 5. Diabetes mellitus. 6. Anemia. 7. Gastritis with thickened fold. Plan Continue present care Monitor blood pressure closely Consultation Date/Type/Reason Admit Date/Time Jul 13, 2017 at 12:45 Initial Consult Date 07/14/17 Type of Consultation: Neurology Referring Provider: REI FONSECA MD 24 HR Interval Summary Free Text/Dictation No abdominal pain, no nausea no dizziness Constitutional: improved Exam/Review of Systems Vital Signs Vitals Vital Signs Date Time Temp Pulse Resp B/P Pulse Ox O2 Delivery O2 Flow Rate FiO2 07/15/17 08:30 75 07/15/17 08:00 98.1 18 81/50 98 07/14/17 18:00 Room Air Intake and Output 07/14/17 07/14/17 07/15/17 15:00 23:00 07:00 Intake Total 252 ml 250 ml Output Total 250 ml Balance 252 ml 0 ml Exam Constitutional: alert, oriented, well developed Psych: nl mood/affect, no complaints Head: atraumatic, normocephalic Eyes: EOMI, PERRL, nl conjunctiva, nl lids, nl sclera ENMT: nl external ears & nose, nl lips & teeth, nl nasal mucosa & septum Neck: non-tender, supple Respiratory: clear to auscultation, normal air movement Cardiovascular: nl pulses, regular rate and rhythm Gastrointestinal: nl liver, spleen, non-tender, soft Musculoskeletal: nl extremities to inspection, nl gait and stance Extremities: normal pulses Neurological: [place] II-XII intact, nl mental status, nl speech, nl strength Skin: nl turgor, No rash or lesions Lymph: nl lymph nodes Results Result Diagram: 07/14/17 0528 07/14/17 0529 Results 24 hrs Laboratory Tests Test 07/14/17 13:24 07/14/17 17:16 07/14/17 20:21 07/15/17 08:35 Bedside Glucose 156 132 156 79 Medications Medications Current Medications Ondansetron HCl (Zofran Inj) 4 mg Q6H PRN IV NAUSEA AND/OR VOMITING; Start at 18:30 Acetaminophen (Tylenol Tab) 650 mg Q6H PRN PO PAIN LEVEL 1-3 OR FEVER; Start 07/13/17 at 18:30 Acetaminophen/ Hydrocodone Bitart ([place] (5/325)) 1 tab Q6H PRN PO MODERATE PAIN LEVEL 4-6; Start 07/13/17 at 18:30 Famotidine (Pepcid) 20 mg Q12 PO Last administered on 07/15/17 08:37; Admin Dose 20 MG; Start 07/13/17 at 21:00 Enoxaparin Sodium 40 mg 40 mg DAILY SC Last administered on 07/15/17 08:41; Admin Dose 40 MG; Start 07/14/17 at 09:00 Ceftriaxone Sodium (Rocephin) 50 ml @ 100 mls/hr Q24H IVPB Last administered on 07/14/17 18:01; Admin Dose 100 MLS/HR; Start 07/13/17 at 18:30 Aspirin (Aspirin) 81 mg DAILY PO Last administered on 07/15/17 08:37; Admin Dose 81 MG; Start 07/14/17 at 09:00 IV Flush (NS 10 ml) 10 ml PRN PRN IV IV PROTOCOL; Start 07/13/17 at 18:30 Diagnostic Test (Pha) (Accu-Chek) 1 ea 02 XX ; Start 07/14/17 at 02:00 Miscellaneous Information 1 ea NOTE XX ; Start 07/13/17 at 19:00 Glucose (Glutose) 15 gm Q15M PRN PO DECREASED GLUCOSE; Start 07/13/17 at 19:00 Glucose (Glutose) 22.5 gm Q15M PRN PO DECREASED GLUCOSE; Start 07/13/17 at 19: 00 Dextrose (D50w Syringe) 25 ml Q15M PRN IV DECREASED GLUCOSE; Start 07/13/17 at 19:00 Dextrose (D50w Syringe) 50 ml Q15M PRN IV DECREASED GLUCOSE; Start 07/13/17 at 19:00 Glucagon (Glucagen) 1 mg Q15M PRN IM DECREASED GLUCOSE; Start 07/13/17 at 19: 00 Glucose (Glutose) 15 gm Q15M PRN BUCCAL DECREASED GLUCOSE; Start 07/13/17 at 19:00 Tramadol HCl 50 mg 50 mg Q6H PRN PO PAIN Last administered on 07/14/17 00:32 ; Admin Dose 50 MG; Start 07/14/17 at 00:00 Norepinephrine/ Dextrose (Levophed/D5W) 500 ml @ 0 mls/hr TITRATE IV ; Start at 22:00 Midodrine (Proamatine) 10 mg TID PO Last administered on 07/15/17 08:37; Admin Dose 10 MG; Start 07/14/17 at 21:00 LAURA RAMIREZ MD Jul 15, 2017 09:58
--- NOTE | 2017-07-15 10:24 | PN ---
Date/Time of Note Date/Time of Note DATE: 07/15/17 TIME: 10:24 Assessment/Plan VTE Prophylaxis VTE Prophylaxis Intervention: contraindicated Lines/Catheters IV Catheter Type (from Nrs): PICC Line Central line still needed: Yes Urinary Cath still in place: No Assessment/Plan Chief Complaint/Hosp Course 62-year-old woman presenting with: 1. History of autoimmune cirrhosis, status post weekly paracentesis, now presenting with increased abdominal distention status post paracentesis with hypotension. According to the family, the patient's blood pressure was 80, but dropped down to 60s, which was significant with dizziness. Could be secondary to loss of fluid through paracentesis, plus added with patient taking Lasix at home. Also, rule out adrenal insufficiency. 2. Left-sided weakness, numbness, especially patient has weakness on the left leg. Rule out stroke. 3. History of cirrhosis. 4. Hepatic encephalopathy. 5. Diabetes. - Repeat MRI brain per Dr Hill and MRI C spine - c/w ASA - ECHO pending - c/w Midodrine 10 tid - ISS - Abdominal U/S Problems: Subjective 24 Hr Interval Summary Free Text/Dictation Left leg still weak Exam/Review of Systems Vital Signs Vitals Vital Signs Date Time Temp Pulse Resp B/P Pulse Ox O2 Delivery O2 Flow Rate FiO2 07/15/17 08:30 75 07/15/17 08:00 98.1 18 81/50 98 07/14/17 18:00 Room Air Intake and Output 07/14/17 07/14/17 07/15/17 15:00 23:00 07:00 Intake Total 252 ml 250 ml Output Total 250 ml Balance 252 ml 0 ml Exam ENERAL: Patient does not appear to be in any acute distress. The patient was feeling dizzy earlier. HEENT: Pupils equal, reactive to light. NECK: Supple, no JVD. HEART: Regular rate and rhythm. LUNGS: Clear to auscultate bilaterally. ABDOMEN: Soft, nontender, nondistended, positive normoactive bowel status post paracentesis. EXTREMITIES: Some trace edema left leg weak Results Result Diagram: 07/14/17 0528 07/14/17 0529 Results 24 hrs Laboratory Tests Test 07/14/17 13:24 07/14/17 17:16 07/14/17 20:21 07/15/17 08:35 Bedside Glucose 156 132 156 79 Medications Medications Current Medications Ondansetron HCl (Zofran Inj) 4 mg Q6H PRN IV NAUSEA AND/OR VOMITING; Start at 18:30 Acetaminophen (Tylenol Tab) 650 mg Q6H PRN PO PAIN LEVEL 1-3 OR FEVER; Start 07/13/17 at 18:30 Acetaminophen/ Hydrocodone Bitart ([place] (5/325)) 1 tab Q6H PRN PO MODERATE PAIN LEVEL 4-6; Start 07/13/17 at 18:30 Famotidine (Pepcid) 20 mg Q12 PO Last administered on 07/15/17 08:37; Admin Dose 20 MG; Start 07/13/17 at 21:00 Enoxaparin Sodium 40 mg 40 mg DAILY SC Last administered on 07/15/17 08:41; Admin Dose 40 MG; Start 07/14/17 at 09:00 Ceftriaxone Sodium (Rocephin) 50 ml @ 100 mls/hr Q24H IVPB Last administered on 07/14/17 18:01; Admin Dose 100 MLS/HR; Start 07/13/17 at 18:30 Aspirin (Aspirin) 81 mg DAILY PO Last administered on 07/15/17 08:37; Admin Dose 81 MG; Start 07/14/17 at 09:00 IV Flush (NS 10 ml) 10 ml PRN PRN IV IV PROTOCOL; Start 07/13/17 at 18:30 Diagnostic Test (Pha) (Accu-Chek) 1 ea 02 XX ; Start 07/14/17 at 02:00 Miscellaneous Information 1 ea NOTE XX ; Start 07/13/17 at 19:00 Glucose (Glutose) 15 gm Q15M PRN PO DECREASED GLUCOSE; Start 07/13/17 at 19:00 Glucose (Glutose) 22.5 gm Q15M PRN PO DECREASED GLUCOSE; Start 07/13/17 at 19: 00 Dextrose (D50w Syringe) 25 ml Q15M PRN IV DECREASED GLUCOSE; Start 07/13/17 at 19:00 Dextrose (D50w Syringe) 50 ml Q15M PRN IV DECREASED GLUCOSE; Start 07/13/17 at 19:00 Glucagon (Glucagen) 1 mg Q15M PRN IM DECREASED GLUCOSE; Start 07/13/17 at 19: 00 Glucose (Glutose) 15 gm Q15M PRN BUCCAL DECREASED GLUCOSE; Start 07/13/17 at 19:00 Tramadol HCl 50 mg 50 mg Q6H PRN PO PAIN Last administered on 07/14/17 00:32 ; Admin Dose 50 MG; Start 07/14/17 at 00:00 Norepinephrine/ Dextrose (Levophed/D5W) 500 ml @ 0 mls/hr TITRATE IV ; Start at 22:00 Midodrine (Proamatine) 10 mg TID PO Last administered on 07/15/17 08:37; Admin Dose 10 MG; Start 07/14/17 at 21:00 REI FONSECA MD Jul 15, 2017 10:24
--- NOTE | 2017-07-15 11:43 | CONS ---
Date/Time of Note Date/Time of Note DATE: 07/15/17 TIME: 11:42 Consult Date/Type/Reason Admit Date/Time Jul 13, 2017 at 12:45 Initial Consult Date 07/14/17 Type of Consultation: Neurology Reason for Consultation eval for CVA Ordering Provider: REI FONSECA MD Subjective improved strength slightly in left arm, left leg remains weak Objective Vital Signs Date Time Temp Pulse Resp B/P Pulse Ox O2 Delivery O2 Flow Rate FiO2 07/15/17 08:30 75 07/15/17 08:00 98.1 18 81/50 98 07/14/17 18:00 Room Air Intake and Output 07/14/17 07/14/17 07/15/17 15:00 23:00 07:00 Intake Total 252 ml 250 ml Output Total 250 ml Balance 252 ml 0 ml Exam Constitutional: alert, frail, oriented Neurological: [place] II-XII intact, DTR's symmetric (left arm 4/5 weakness, left leg 2/5 compared to right), nl mental status, nl speech Sensory is intact bilaterally no neglect to DSS Results/Medications Result Diagram: 07/14/17 0528 07/14/17 0529 Results 24 hrs Laboratory Tests Test 07/14/17 13:24 07/14/17 17:16 07/14/17 20:21 07/15/17 08:35 Bedside Glucose 156 132 156 79 Medications Current Medications Ondansetron HCl (Zofran Inj) 4 mg Q6H PRN IV NAUSEA AND/OR VOMITING; Start at 18:30 Acetaminophen (Tylenol Tab) 650 mg Q6H PRN PO PAIN LEVEL 1-3 OR FEVER; Start 07/13/17 at 18:30 Acetaminophen/ Hydrocodone Bitart ([place] (5/325)) 1 tab Q6H PRN PO MODERATE PAIN LEVEL 4-6; Start 07/13/17 at 18:30 Famotidine (Pepcid) 20 mg Q12 PO Last administered on 07/15/17 08:37; Admin Dose 20 MG; Start 07/13/17 at 21:00 Enoxaparin Sodium 40 mg 40 mg DAILY SC Last administered on 07/15/17 08:41; Admin Dose 40 MG; Start 07/14/17 at 09:00 Ceftriaxone Sodium (Rocephin) 50 ml @ 100 mls/hr Q24H IVPB Last administered on 07/14/17 18:01; Admin Dose 100 MLS/HR; Start 07/13/17 at 18:30 Aspirin (Aspirin) 81 mg DAILY PO Last administered on 07/15/17 08:37; Admin Dose 81 MG; Start 07/14/17 at 09:00 IV Flush (NS 10 ml) 10 ml PRN PRN IV IV PROTOCOL; Start 07/13/17 at 18:30 Diagnostic Test (Pha) (Accu-Chek) 1 ea 02 XX ; Start 07/14/17 at 02:00 Miscellaneous Information 1 ea NOTE XX ; Start 07/13/17 at 19:00 Glucose (Glutose) 15 gm Q15M PRN PO DECREASED GLUCOSE; Start 07/13/17 at 19:00 Glucose (Glutose) 22.5 gm Q15M PRN PO DECREASED GLUCOSE; Start 07/13/17 at 19: 00 Dextrose (D50w Syringe) 25 ml Q15M PRN IV DECREASED GLUCOSE; Start 07/13/17 at 19:00 Dextrose (D50w Syringe) 50 ml Q15M PRN IV DECREASED GLUCOSE; Start 07/13/17 at 19:00 Glucagon (Glucagen) 1 mg Q15M PRN IM DECREASED GLUCOSE; Start 07/13/17 at 19: 00 Glucose (Glutose) 15 gm Q15M PRN BUCCAL DECREASED GLUCOSE; Start 07/13/17 at 19:00 Tramadol HCl 50 mg 50 mg Q6H PRN PO PAIN Last administered on 07/14/17 00:32 ; Admin Dose 50 MG; Start 07/14/17 at 00:00 Norepinephrine/ Dextrose (Levophed/D5W) 500 ml @ 0 mls/hr TITRATE IV ; Start at 22:00 Midodrine (Proamatine) 10 mg TID PO Last administered on 07/15/17 08:37; Admin Dose 10 MG; Start 07/14/17 at 21:00 Assessment/Plan Chief Complaint/Hosp Course 62 yo female with autoimmune cirrhosis admitted with abdominal pain, left arm and leg weakness. MRI Brain: 1. No evidence for acute intracranial infarcts, hemorrhage, or acute intracranial pathology. 2. Mild chronic microvascular ischemic disease and diffuse volume loss. 3. Mild chronic bilateral ethmoid and maxillary sinus disease. Recommend: repeat MRI to evaluate for possible brainstem ischemia, MRA Head/Neck without contrast MRI C Spine will follow Problems: MANUEL MOREIRA MD Jul 15, 2017 11:43
[2017-07-15] MEDS: CEFTRIAXONE 1 GM/50 ML (PMX) 50 ML IVPB SCH (19:00)
--- NOTE | 2017-07-15 20:59 | RADRPT ---
PROCEDURE: US Abdomen. CLINICAL INDICATION: Abdominal pain TECHNIQUE: Multiple real-time images were acquired of the patient's abdomen and retroperitoneum ut ilizing a high resolution transducer. COMPARISON: None FINDINGS: The liver demonstrates increased echogenicity, nodular borders, coarsened echotexture and normal siz e . No focal hepatic lesions. Patent portal vein. Gallbladder contains multiple stones with wall thi ckening measuring 6 mm. No intrahepatic or extrahepatic biliary dilatation. The common bile duct m easures 3 mm in maximal dimension. The visualized portions of the pancreas are normal. Normal sple en size and normal echogenicity measuring 11.3 cm. The kidneys are normal size, and demonstrate increased echogenicity and normal morphology. The righ t kidney measures 11.1 cm. The left kidney measures 10.3 cm. No hydronephrosis or perinephric flui d collections. There are no areas of increased echogenicity to suggest nephrolithiasis. Normal lula rena aorta and IVC. Moderate peritoneal free fluid. IMPRESSION: 1. Cirrhotic liver. 2. Cholelithiasis with gallbladder wall thickening. Gallbladder wall thickening may be secondary to hypoalbuminemia with ascites. If clinical concern for cholecystitis, recommend follow-up imaging wit h HIDA scan. 3. Echogenic kidneys consistent with medical renal disease. 4. Moderate ascites. RPTAT:AAJJ Physician Giovany Date Time Electronically viewed and signed by Physician Giovany on 07/15/2017 20:59 /
[2017-07-16] VITALS (13 sets, daily range): BP systolic 75–91; BP diastolic 51–58; PULSE 72–80; RESP 16–18
[2017-07-16] MEDS: ACCU-CHEK XX SCH (02:00)
[2017-07-16] MEDS: INSULIN ASPART [NOVOLOG] 3 ML PEN SC SCH ×4 (07:36→21:00)
[2017-07-16] MEDS: MIDODRINE 5 MG TAB PO SCH ×3 (07:37→23:58)
[2017-07-16] MEDS: FAMOTIDINE 20 MG TAB PO SCH ×2 (07:37→23:57)
[2017-07-16] MEDS: ENOXAPARIN 40 MG/0.4 ML SYG SC SCH (07:47)
--- NOTE | 2017-07-16 07:53 | RADRPT ---
PROCEDURE: MR Cervical Spine noncontrast. CLINICAL INDICATION: Stroke. Left-sided weakness. TECHNIQUE: Multiplanar multisequence noncontrast MRI of the cervical spine was performed. COMPARISON: There are no similar studies submitted for comparison. FINDINGS: There is normal cervical lordosis. The vertebral body heights are maintained. There is normal alignment. There is no destructive osseous lesion. There is no abnormal bone marrow edema. There is disk desiccation from C2-C3 to C6-C7. The spinal cord is normal in caliber. The spinal cord is normal in signal. C2-C3 : There is no disc herniation, spinal canal, or foraminal stenosis. There is mild bilateral fa cet arthropathy. C3-C4 : There is a 2 mm central disc protrusion mildly indenting the spinal cord with mild spinal ca nal stenosis. There is moderate by facet arthropathy and bilateral uncovertebral hypertrophy causing mild to moderate left without right foraminal stenosis. C4-C5 : There is mild disc space narrowing. There is a 1 mm left paracentral disc protrusion minimal ly indenting the left aspect of the spinal cord without spinal canal stenosis. There is moderate mai ateral facet arthropathy and bilateral uncovertebral hypertrophy causing mild to moderate bilateral foraminal stenosis. C5-C6 : There is mild disc space narrowing. There is a 2 mm circumferential disc osteophyte complex without spinal canal stenosis. There is mild bilateral facet arthropathy and bilateral uncovertebral hypertrophy causing mild bilateral foraminal stenosis. C6-C7 : There is mild disc space narrowing. There is a 2 mm right paracentral disk/osteophyte protru alexandru without spinal canal stenosis. There is moderate bilateral facet arthropathy and bilateral unco vertebral hypertrophy causing mild to moderate right with mild left foraminal stenosis. C7-T1 : There is a 1 mm broad-based disc osteophyte complex without spinal canal stenosis. There is moderate left and moderate facet arthropathy and bilateral uncovertebral hypertrophy causing mild to moderate left without right foraminal stenosis. The paravertebral musculature are within normal limits. IMPRESSION: 1. Mild to moderate multilevel degenerative changes without nerve root impingement. 2. The spinal cord is normal in signal. 3. No abnormal bone marrow edema. Further findings as detailed above. RPTAT: PP .Shahriar Fodera, MD, MD Date Time Electronically viewed and signed by .Shahriar Blackmon MD, MD on 07/16/2017 07:53 .F/
--- NOTE | 2017-07-16 08:10 | RADRPT ---
PROCEDURE: MRA Head noncontrast. CLINICAL INDICATION: Stroke. TECHNIQUE: MRA of the head was performed with 3-D daec-aa-[id number] technique without contrast. MIP r econstructions were provided. COMPARISON: There are no similar studies submitted for comparison. FINDINGS: Carotid arteries: Patent bilaterally without evidence of stenosis. Anterior cerebral arteries: Patent bilaterally without evidence of stenosis. Middle cerebral arteries: Patent bilaterally without evidence of stenosis. Posterior cerebral arteries: Patent bilaterally without evidence of stenosis. Anterior communicating artery: Present. Posterior communicating arteries: Present bilaterally. Basilar artery: Patent without evidence of stenosis. Vertebral arteries: Patent bilaterally without evidence of stenosis. Vertebral artery dominance: Codominant. Aneurysm: No aneurysm is identified. IMPRESSION: 1. No evidence of aneurysm or intracranial stenosis. Further findings as detailed above. RPTAT: PP .Shahriar Blackmon MD, MD Date Time Electronically viewed and signed by .Shahriar Blackmon MD, on 07/16/2017 08:10 .F/
--- NOTE | 2017-07-16 08:13 | RADRPT ---
PROCEDURE: MRA Neck noncontrast CLINICAL INDICATION: Stroke. TECHNIQUE: Multiplanar multisequence MRA of the neck was performed using 2-D time of flight techniq ue without contrast. The extracranial arterial circulation was evaluated using a time resolved 3-D t salvatore of flight technique. Source images, MIP and subvolume MIP images were all reviewed. All stenosis measurements were made using NASCET methodology. COMPARISON: There are no similar studies submitted for comparison. FINDINGS: Evaluation of the aorta and the great vessel origins is limited without contrast. Right common carotid artery: Patent without evidence of stenosis. Right internal carotid artery: Patent without evidence of stenosis. Right external carotid artery: Patent without evidence of stenosis. Left common carotid artery: Patent without evidence of stenosis. Left internal carotid artery: Patent without evidence of stenosis. Left external carotid artery: Patent without evidence of stenosis. Vertebral arteries: Patent bilaterally without evidence of stenosis. Vertebral artery dominance: Codominant. IMPRESSION: No evidence of bilateral carotid artery stenosis by NASCET criteria. Further findings as detailed above. RPTAT: PP .Shahriar Blackmon MD, Date Time Electronically viewed and signed by .Shahriar Blackmon MD, on 07/16/2017 08:13 .F/
[2017-07-16] MEDS: ASPIRIN 81 MG TAB PO SCH (12:22)
--- NOTE | 2017-07-16 14:13 | CONS ---
Date/Time of Note Date/Time of Note DATE: 07/16/17 TIME: 14:10 Consult Date/Type/Reason Admit Date/Time Jul 13, 2017 at 12:45 Initial Consult Date 07/14/17 Type of Consultation: Neurology Ordering Provider: REI FONSECA MD Subjective feels stronger on the left Objective Vital Signs Date Time Temp Pulse Resp B/P Pulse Ox O2 Delivery O2 Flow Rate FiO2 07/16/17 12:12 74 07/16/17 11:11 98.1 16 79/52 97 07/14/17 18:00 Room Air Intake and Output 07/15/17 07/15/17 07/16/17 15:00 23:00 07:00 Intake Total 350 ml 400 ml Balance 350 ml 400 ml Results/Medications Result Diagram: 07/14/17 0528 07/14/17 0529 Results 24 hrs Laboratory Tests Test 07/15/17 17:15 07/15/17 20:15 07/16/17 07:36 07/16/17 11:18 Bedside Glucose 158 180 93 117 Medications Current Medications Ondansetron HCl (Zofran Inj) 4 mg Q6H PRN IV NAUSEA AND/OR VOMITING Last administered on 07/16/17 10:17; Admin Dose 4 MG; Start 07/13/17 at 18:30 Acetaminophen (Tylenol Tab) 650 mg Q6H PRN PO PAIN LEVEL 1-3 OR FEVER; Start 07/13/17 at 18:30 Acetaminophen/ Hydrocodone Bitart ([place] (5/325)) 1 tab Q6H PRN PO MODERATE PAIN LEVEL 4-6 Last administered on 07/15/17 11:55; Admin Dose 1 TAB; Start 07/13/17 at 18:30 Famotidine (Pepcid) 20 mg Q12 PO Last administered on 07/16/17 07:37; Admin Dose 20 MG; Start 07/13/17 at 21:00 Enoxaparin Sodium 40 mg 40 mg DAILY SC Last administered on 07/16/17 07:47; Admin Dose 40 MG; Start 07/14/17 at 09:00 Ceftriaxone Sodium (Rocephin) 50 ml @ 100 mls/hr Q24H IVPB Last administered on 07/15/17 19:00; Admin Dose 100 MLS/HR; Start 07/13/17 at 18:30 IV Flush (NS 10 ml) 10 ml PRN PRN IV IV PROTOCOL; Start 07/13/17 at 18:30 Diagnostic Test (Pha) (Accu-Chek) 1 ea 02 XX ; Start 07/14/17 at 02:00 Miscellaneous Information 1 ea NOTE XX ; Start 07/13/17 at 19:00 Glucose (Glutose) 15 gm Q15M PRN PO DECREASED GLUCOSE; Start 07/13/17 at 19:00 Glucose (Glutose) 22.5 gm Q15M PRN PO DECREASED GLUCOSE; Start 07/13/17 at 19: 00 Dextrose (D50w Syringe) 25 ml Q15M PRN IV DECREASED GLUCOSE; Start 07/13/17 at 19:00 Dextrose (D50w Syringe) 50 ml Q15M PRN IV DECREASED GLUCOSE; Start 07/13/17 at 19:00 Glucagon (Glucagen) 1 mg Q15M PRN IM DECREASED GLUCOSE; Start 07/13/17 at 19: 00 Glucose (Glutose) 15 gm Q15M PRN BUCCAL DECREASED GLUCOSE; Start 07/13/17 at 19:00 Tramadol HCl (Ultram) 50 mg Q6H PRN PO PAIN Last administered on 07/14/17 00: 32; Admin Dose 50 MG; Start 07/14/17 at 00:00 Midodrine (Proamatine) 10 mg TID PO Last administered on 07/16/17 12:24; Admin Dose 10 MG; Start 07/14/17 at 21:00 Aspirin (Aspirin) 81 mg DAILY PO Last administered on 07/16/17 12:22; Admin Dose 81 MG; Start 07/16/17 at 10:00 Assessment/Plan Chief Complaint/Hosp Course Exam: Neurological: AO x 3 CN II-XII intact, except decreased sensation on the left face, DTR's symmetric, left arm 4+/5 weakness, left leg 3/5, decreased perception of touch on the left A/P: Acute ischemic CVA, improving. Consider PT. Cont ASA, keep normotensive, euglycemic, lipid profile, I'll avoid statin given cirrhosis. Problems: SHANNON ARREDONDO MD Jul 16, 2017 14:13
--- NOTE | 2017-07-16 14:13 | CONS ---
Date/Time of Note Date/Time of Note DATE: 07/16/17 TIME: 14:08 Assessment/Plan Assessment/Plan Chief Complaint/Hosp Course 62-year-old woman presenting with: 1. History of autoimmune cirrhosis, status post weekly paracentesis, now presenting with increased abdominal distention status post paracentesis with hypotension. According to the family, the patient's blood pressure was 80, but dropped down to 60s, which was significant with dizziness. Could be secondary to loss of fluid through paracentesis, plus added with patient taking Lasix at home. Also, rule out adrenal insufficiency which is negative . Now on midodrine 10 tid. SBP 80'S 2. Left-sided weakness, numbness, especially patient has weakness on the left leg. Rule out stroke.MRI/MRA negative 3. History of cirrhosis. 4. Hepatic encephalopathy. 5. Diabetes. 6 DJD of cervical spine 7 RUQ pain with possible cholecystitis on U/S Recs - Physical therapy - HIDA scan - Pt might need repeat paracentesis - c/w ASA - c/w Midodrine 10 tid - ISS Problems: Consultation Date/Type/Reason Admit Date/Time Jul 13, 2017 at 12:45 Initial Consult Date 07/14/17 Referring Provider: REI FONSECA MD 24 HR Interval Summary Free Text/Dictation Pt feeling more stronger on left leg now MRI/MRA negative for stroke Still Ruq pain, unable to eat anything much Exam/Review of Systems Vital Signs Vitals Vital Signs Date Time Temp Pulse Resp B/P Pulse Ox O2 Delivery O2 Flow Rate FiO2 07/16/17 12:12 74 07/16/17 11:11 98.1 16 79/52 97 07/14/17 18:00 Room Air Intake and Output 07/15/17 07/15/17 07/16/17 15:00 23:00 07:00 Intake Total 350 ml 400 ml Balance 350 ml 400 ml Exam NERAL: Patient does not appear to be in any acute distress. The patient was feeling dizzy earlier. HEENT: Pupils equal, reactive to light. NECK: Supple, no JVD. HEART: Regular rate and rhythm. LUNGS: Clear to auscultate bilaterally. ABDOMEN: Soft, ttp in ruq , nondistended, positive normoactive bowel status post paracentesis. EXTREMITIES: Some trace edema left leg weak 4/5 Results Result Diagram: 07/14/17 0528 07/14/17 0529 Results 24 hrs Laboratory Tests Test 07/15/17 17:15 07/15/17 20:15 07/16/17 07:36 07/16/17 11:18 Bedside Glucose 158 180 93 117 Medications Medications Current Medications Ondansetron HCl (Zofran Inj) 4 mg Q6H PRN IV NAUSEA AND/OR VOMITING Last administered on 07/16/17 10:17; Admin Dose 4 MG; Start 07/13/17 at 18:30 Acetaminophen (Tylenol Tab) 650 mg Q6H PRN PO PAIN LEVEL 1-3 OR FEVER; Start 07/13/17 at 18:30 Acetaminophen/ Hydrocodone Bitart ([place] (5/325)) 1 tab Q6H PRN PO MODERATE PAIN LEVEL 4-6 Last administered on 07/15/17 11:55; Admin Dose 1 TAB; Start 07/13/17 at 18:30 Famotidine (Pepcid) 20 mg Q12 PO Last administered on 07/16/17 07:37; Admin Dose 20 MG; Start 07/13/17 at 21:00 Enoxaparin Sodium 40 mg 40 mg DAILY SC Last administered on 07/16/17 07:47; Admin Dose 40 MG; Start 07/14/17 at 09:00 Ceftriaxone Sodium (Rocephin) 50 ml @ 100 mls/hr Q24H IVPB Last administered on 07/15/17 19:00; Admin Dose 100 MLS/HR; Start 07/13/17 at 18:30 IV Flush (NS 10 ml) 10 ml PRN PRN IV IV PROTOCOL; Start 07/13/17 at 18:30 Diagnostic Test (Pha) (Accu-Chek) 1 ea 02 XX ; Start 07/14/17 at 02:00 Miscellaneous Information 1 ea NOTE XX ; Start 07/13/17 at 19:00 Glucose (Glutose) 15 gm Q15M PRN PO DECREASED GLUCOSE; Start 07/13/17 at 19:00 Glucose (Glutose) 22.5 gm Q15M PRN PO DECREASED GLUCOSE; Start 07/13/17 at 19: 00 Dextrose (D50w Syringe) 25 ml Q15M PRN IV DECREASED GLUCOSE; Start 07/13/17 at 19:00 Dextrose (D50w Syringe) 50 ml Q15M PRN IV DECREASED GLUCOSE; Start 07/13/17 at 19:00 Glucagon (Glucagen) 1 mg Q15M PRN IM DECREASED GLUCOSE; Start 07/13/17 at 19: 00 Glucose (Glutose) 15 gm Q15M PRN BUCCAL DECREASED GLUCOSE; Start 07/13/17 at 19:00 Tramadol HCl (Ultram) 50 mg Q6H PRN PO PAIN Last administered on 07/14/17 00: 32; Admin Dose 50 MG; Start 07/14/17 at 00:00 Midodrine (Proamatine) 10 mg TID PO Last administered on 07/16/17 12:24; Admin Dose 10 MG; Start 07/14/17 at 21:00 Aspirin (Aspirin) 81 mg DAILY PO Last administered on 07/16/17 12:22; Admin Dose 81 MG; Start 07/16/17 at 10:00 REI FONSECA MD Jul 16, 2017 14:13
--- NOTE | 2017-07-16 17:30 | CONS ---
Date/Time of Note Date/Time of Note DATE: 07/16/17 TIME: 17:29 Assessment/Plan Assessment/Plan Additional Assessment/Plan IMPRESSION: 1. Hypotension, which is chronically due to the liver disease, cirrhosis. 2. Autoimmune hepatitis with cirrhosis. 3. Portal hypertension with ascites. 4. Status post paracentesis; 3.5 liters of fluid was removed. 5. Diabetes mellitus. 6. Anemia. 7. Gastritis with thickened fold. 8. CVA patient is on aspirin now Plan Continue present care Monitor blood pressure closely Patient is a high risk for gallbladder surgery if HIDA is positive then may need percutaneous cholecystostomy Consultation Date/Type/Reason Admit Date/Time Jul 13, 2017 at 12:45 Initial Consult Date 07/14/17 Referring Provider: REI FONSECA MD 24 HR Interval Summary Constitutional: improved, no complaints Exam/Review of Systems Vital Signs Vitals Vital Signs Date Time Temp Pulse Resp B/P Pulse Ox O2 Delivery O2 Flow Rate FiO2 07/16/17 16:10 77 07/16/17 15:16 98.4 16 91/58 96 07/14/17 18:00 Room Air Intake and Output 07/15/17 07/15/17 07/16/17 15:00 23:00 07:00 Intake Total 350 ml 400 ml Balance 350 ml 400 ml Exam Constitutional: alert, oriented, well developed Psych: nl mood/affect, no complaints Head: atraumatic, normocephalic Eyes: EOMI, PERRL, nl conjunctiva, nl lids, nl sclera ENMT: nl external ears & nose, nl lips & teeth, nl nasal mucosa & septum Neck: non-tender, supple Respiratory: clear to auscultation, normal air movement Cardiovascular: nl pulses, regular rate and rhythm Gastrointestinal: nl liver, spleen, non-tender, soft Musculoskeletal: nl extremities to inspection, nl gait and stance Extremities: normal pulses 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, nl mental status, nl speech, nl strength Skin: nl turgor, No rash or lesions Lymph: nl lymph nodes Results Result Diagram: 07/14/17 0528 07/14/17 0529 Results 24 hrs Laboratory Tests Test 07/15/17 20:15 07/16/17 07:36 07/16/17 11:18 Bedside Glucose 180 93 117 Medications Medications Current Medications Ondansetron HCl (Zofran Inj) 4 mg Q6H PRN IV NAUSEA AND/OR VOMITING Last administered on 07/16/17 10:17; Admin Dose 4 MG; Start 07/13/17 at 18:30 Acetaminophen (Tylenol Tab) 650 mg Q6H PRN PO PAIN LEVEL 1-3 OR FEVER; Start 07/13/17 at 18:30 Acetaminophen/ Hydrocodone Bitart ([place] (5/325)) 1 tab Q6H PRN PO MODERATE PAIN LEVEL 4-6 Last administered on 07/15/17 11:55; Admin Dose 1 TAB; Start 07/13/17 at 18:30 Famotidine (Pepcid) 20 mg Q12 PO Last administered on 07/16/17 07:37; Admin Dose 20 MG; Start 07/13/17 at 21:00 Enoxaparin Sodium (Lovenox) 40 mg DAILY SC Last administered on 07/16/17 07: 47; Admin Dose 40 MG; Start 07/14/17 at 09:00 IV Flush (NS 10 ml) 10 ml PRN PRN IV IV PROTOCOL; Start 07/13/17 at 18:30 Diagnostic Test (Pha) (Accu-Chek) 1 ea 02 XX ; Start 07/14/17 at 02:00 Miscellaneous Information 1 ea NOTE XX ; Start 07/13/17 at 19:00 Glucose (Glutose) 15 gm Q15M PRN PO DECREASED GLUCOSE; Start 07/13/17 at 19:00 Glucose (Glutose) 22.5 gm Q15M PRN PO DECREASED GLUCOSE; Start 07/13/17 at 19: 00 Dextrose (D50w Syringe) 25 ml Q15M PRN IV DECREASED GLUCOSE; Start 07/13/17 at 19:00 Dextrose (D50w Syringe) 50 ml Q15M PRN IV DECREASED GLUCOSE; Start 07/13/17 at 19:00 Glucagon (Glucagen) 1 mg Q15M PRN IM DECREASED GLUCOSE; Start 07/13/17 at 19: 00 Glucose (Glutose) 15 gm Q15M PRN BUCCAL DECREASED GLUCOSE; Start 07/13/17 at 19:00 Tramadol HCl (Ultram) 50 mg Q6H PRN PO PAIN Last administered on 07/14/17 00: 32; Admin Dose 50 MG; Start 07/14/17 at 00:00 Midodrine (Proamatine) 10 mg TID PO Last administered on 07/16/17 12:24; Admin Dose 10 MG; Start 07/14/17 at 21:00 Aspirin (Aspirin) 81 mg DAILY PO Last administered on 07/16/17 12:22; Admin Dose 81 MG; Start 07/16/17 at 10:00 LAURA RAMIREZ MD Jul 16, 2017 17:30
[2017-07-16] MEDS: traMADol 50 MG TAB PO PRN (23:36)
[2017-07-17] VITALS (12 sets, daily range): BP systolic 82–110; BP diastolic 60–68; PULSE 69–80; RESP 16–22
[2017-07-17] MEDS: ACCU-CHEK XX SCH (02:00)
[2017-07-17] MEDS: traMADol 50 MG TAB PO PRN (05:49)
[2017-07-17 06:55] LABS: CHOL/HDL RATIO 6.3 RATIO
[2017-07-17] MEDS: INSULIN ASPART [NOVOLOG] 3 ML PEN SC SCH ×4 (07:55→20:40)
[2017-07-17] MEDS: FAMOTIDINE 20 MG TAB PO SCH ×2 (08:48→20:34)
[2017-07-17] MEDS: ASPIRIN 81 MG TAB PO SCH (08:48)
[2017-07-17] MEDS: MIDODRINE 5 MG TAB PO SCH ×3 (08:48→20:34)
[2017-07-17] MEDS: ENOXAPARIN 40 MG/0.4 ML SYG SC SCH (08:49)
--- NOTE | 2017-07-17 12:28 | RADRPT ---
PROCEDURE: HIDA scan CLINICAL INDICATION: 62 -year-old patient with abdominal pain. TECHNIQUE: Following the intravenous injection of 8.1 mCi of Tc-99m Mebrofenin, multiple anterior dynamic images of the abdomen along with numerous planar spot images of the abdomen were obtained up to 100 minutes post injection. COMPARISON: No prior HIDA scans. FINDINGS: The liver is promptly visualized, demonstrates homogeneous distribution of radionuclide. There is a visualization of the common bile duct and gastrointestinal activity within normal time. Area of increased activity is visualized in the general region of the gallbladder fossa, which may r epresent a visualization bladder. IMPRESSION: 1. Area of increased activity in the gallbladder fossa region possibly represents a visualization o f the gallbladder; cannot differentiate from an overlapping physiologic activity in a loop of small bowel. 2. No evidence of a common bile duct obstruction. RPTAT: HH .Alissa Collins MD, Date Time Electronically viewed and signed by .Alissa Collins MD, on 07/17/2017 12:27 .L/
--- NOTE | 2017-07-17 17:23 | PN ---
Date/Time of Note Date/Time of Note DATE: 07/17/17 TIME: 17:21 Assessment/Plan VTE Prophylaxis VTE Prophylaxis Intervention: SCD's Lines/Catheters IV Catheter Type (from Nrsg): PICC Line Central line still needed: Yes Urinary Cath still in place: No Assessment/Plan Chief Complaint/Hosp Course 1. History of autoimmune cirrhosis, status post weekly paracentesis, 2. Left-sided weakness, numbness, especially patient has weakness on the left leg. Rule out stroke.MRI/MRA negative 3. Anemia 4. Hepatic encephalopathy. 5. Diabetes. 6 DJD of cervical spine 7 RUQ pain with possible cholecystitis on U/S Problems: Assessment/Plan 1. PT evaluation 2. US paracentesis. 3. Pain control Subjective 24 Hr Interval Summary Constitutional: no complaints Gastrointestinal: decreased appetite, pain Exam/Review of Systems Vital Signs Vitals Vital Signs Date Time Temp Pulse Resp B/P Pulse Ox O2 Delivery O2 Flow Rate FiO2 07/17/17 16:10 71 07/17/17 15:18 97.9 16 102/68 97 07/14/17 18:00 Room Air Intake and Output 07/16/17 07/16/17 07/17/17 15:00 23:00 07:00 Intake Total 750 ml 500 ml Balance 750 ml 500 ml Exam Constitutional: alert, oriented Cardiovascular: regular rate and rhythm Gastrointestinal: ascites, distended Results Result Diagram: 07/14/17 0528 07/14/17 0529 Results 24 hrs Laboratory Tests Test 07/16/17 17:35 07/16/17 21:03 07/17/17 05:57 07/17/17 07:53 Bedside Glucose 157 101 81 Triglycerides Level 78 Cholesterol Level 127 LDL Cholesterol, Calculated 91 HDL Cholesterol 20 L Cholesterol/HDL Ratio 6.3 Test 07/17/17 11:37 Bedside Glucose 116 Medications Medications Current Medications Ondansetron HCl (Zofran Inj) 4 mg Q6H PRN IV NAUSEA AND/OR VOMITING Last administered on 07/16/17t 10:17; Admin Dose 4 MG; Start 07/13/17 at 18:30 Acetaminophen (Tylenol Tab) 650 mg Q6H PRN PO PAIN LEVEL 1-3 OR FEVER; Start 07/13/17 at 18:30 Acetaminophen/ Hydrocodone Bitart ([place] (5/325)) 1 tab Q6H PRN PO MODERATE PAIN LEVEL 4-6 Last administered on 07/15/17 11:55; Admin Dose 1 TAB; Start 07/13/17 at 18:30 Famotidine (Pepcid) 20 mg Q12 PO Last administered on 07/17/17 08:48; Admin Dose 20 MG; Start 07/13/17 at 21:00 Enoxaparin Sodium (Lovenox) 40 mg DAILY SC Last administered on 07/16/17 07: 47; Admin Dose 40 MG; Start 07/14/17 at 09:00 IV Flush (NS 10 ml) 10 ml PRN PRN IV IV PROTOCOL; Start 07/13/17 at 18:30 Diagnostic Test (Pha) (Accu-Chek) 1 ea 02 XX ; Start 07/14/17 at 02:00 Miscellaneous Information 1 ea NOTE XX ; Start 07/13/17 at 19:00 Glucose (Glutose) 15 gm Q15M PRN PO DECREASED GLUCOSE; Start 07/13/17 at 19:00 Glucose (Glutose) 22.5 gm Q15M PRN PO DECREASED GLUCOSE; Start 07/13/17 at 19: 00 Dextrose (D50w Syringe) 25 ml Q15M PRN IV DECREASED GLUCOSE; Start 07/13/17 at 19:00 Dextrose (D50w Syringe) 50 ml Q15M PRN IV DECREASED GLUCOSE; Start 07/13/17 at 19:00 Glucagon (Glucagen) 1 mg Q15M PRN IM DECREASED GLUCOSE; Start 07/13/17 at 19: 00 Glucose (Glutose) 15 gm Q15M PRN BUCCAL DECREASED GLUCOSE; Start 07/13/17 at 19:00 Tramadol HCl (Ultram) 50 mg Q6H PRN PO PAIN Last administered on 07/17/17 05: 49; Admin Dose 50 MG; Start 07/14/17 at 00:00 Midodrine (Proamatine) 10 mg TID PO Last administered on 07/17/17 13:31; Admin Dose 10 MG; Start 07/14/17 at 21:00 Aspirin (Aspirin) 81 mg DAILY PO Last administered on 07/17/17 08:48; Admin Dose 81 MG; Start 07/16/17 at 10:00 FABI OSORIO Jul 17, 2017 17:23
[2017-07-18] VITALS (13 sets, daily range): BP systolic 84–103; BP diastolic 53–56; PULSE 70–75; RESP 16–20
[2017-07-18] MEDS: ACCU-CHEK XX SCH (02:00)
[2017-07-18] MEDS: INSULIN ASPART [NOVOLOG] 3 ML PEN SC SCH ×4 (07:55→21:00)
[2017-07-18 07:59] LABS: BASOPHILS % 0.8 % (0.0-2.0); EOSINOPHILS # 0.1 10^3/ul (0.0-0.5); EOSINOPHILS % 1.1 % (0.0-7.0); HEMATOCRIT 31.6 % (37.0-47.0); HEMOGLOBIN 10.4 g/dl (12.0-16.0); LYMPHOCYTES # 1.7 10^3/ul (0.8-2.9); LYMPHOCYTES % 31.8 % (15.0-51.0); MEAN CORPUSCULAR HEMOGLOBIN 30.9 pg (29.0-33.0); MEAN CORPUSCULAR HGB CONC 32.9 g/dl (32.0-37.0); MEAN CORPUSCULAR VOLUME 93.8 fl (82.0-101.0); MONOCYTE # 0.5 10^3/ul (0.3-0.9); MONOCYTES % 8.6 % (0.0-11.0); NEUTROPHIL # 3.1 10^3/ul (1.6-7.5); NEUTROPHILS % 57.3 % (39.0-77.0); PLATELET COUNT 179 10^3/UL (140-415); RED BLOOD COUNT 3.37 10^6/ul (4.20-5.40); RED CELL DISTRIBUTION WIDTH 15.1 % (11.5-14.5); WHITE BLOOD COUNT 5.3 10^3/ul (4.8-10.8)
[2017-07-18 08:14] LABS: CALCIUM 7.8 mg/dl (8.4-10.2); CREATININE 0.61 mg/dl (0.44-1.00); POTASSIUM 3.9 mmol/L (3.5-5.1)
[2017-07-18] MEDS: ASPIRIN 81 MG TAB PO SCH (08:24)
[2017-07-18] MEDS: ENOXAPARIN 40 MG/0.4 ML SYG SC SCH (08:24)
[2017-07-18] MEDS: MIDODRINE 5 MG TAB PO SCH ×3 (08:25→21:26)
[2017-07-18] MEDS: FAMOTIDINE 20 MG TAB PO SCH ×2 (08:25→21:26)
[2017-07-18] MEDS ORDERED: LIDOCAINE 1% (MPF) 5 ML VIAL ONE (12:31)
--- NOTE | 2017-07-18 13:26 | PN ---
Date/Time of Note Date/Time of Note DATE: 07/18/17 TIME: 13:22 Assessment/Plan VTE Prophylaxis VTE Prophylaxis Intervention: SCD's Lines/Catheters IV Catheter Type (from Nrsg): PICC Line Central line still needed: Yes Urinary Cath still in place: No Assessment/Plan Chief Complaint/Hosp Course 1. History of autoimmune cirrhosis, status post weekly paracentesis, 2. Left-sided weakness, numbness, especially patient has weakness on the left leg. Rule out stroke.MRI/MRA negative 3. Anemia 4. Hepatic encephalopathy. 5. Diabetes. 6 DJD of cervical spine 7 RUQ pain with possible cholecystitis on U/S Problems: Assessment/Plan 1. s/p Paracentesis 2. Possible discharge to SNF Subjective 24 Hr Interval Summary Constitutional: improved, no complaints Exam/Review of Systems Vital Signs Vitals Vital Signs Date Time Temp Pulse Resp B/P Pulse Ox O2 Delivery O2 Flow Rate FiO2 07/18/17 12:41 98.0 75 20 90/55 96 Room Air Intake and Output 07/17/17 07/17/17 07/18/17 15:00 23:00 07:00 Intake Total 400 ml Balance 400 ml Exam Constitutional: alert, oriented Neck: supple Respiratory: clear to auscultation Cardiovascular: regular rate and rhythm Results Result Diagram: 07/18/1770307/18/17 0704 Results 24 hrs Laboratory Tests Test 07/17/17 17:26 07/17/17 20:32 07/18/17 07:04 07/18/17 08:20 Bedside Glucose 177 240 H 86 White Blood Count 5.3 Red Blood Count 3.37 L Hemoglobin 10.4 L Hematocrit 31.6 L Mean Corpuscular Volume 93.8 Mean Corpuscular Hemoglobin 30.9 Mean Corpuscular Hemoglobin Concent 32.9 Red Cell Distribution Width 15.1 H Platelet Count 179 # Mean Platelet Volume 9.0 Neutrophils % 57.3 Lymphocytes % 31.8 Monocytes % 8.6 Eosinophils % 1.1 Basophils % 0.8 Nucleated Red Blood Cells % 0.0 Neutrophils # 3.1 Lymphocytes # 1.7 Monocytes # 0.5 Eosinophils # 0.1 Basophils # 0.0 Nucleated Red Blood Cells # 0.0 Sodium Level 136 Potassium Level 3.9 Chloride Level 105 Carbon Dioxide Level 24 Anion Gap 11 Blood Urea Nitrogen 10 Creatinine 0.61 Glucose Level 94 Calcium Level 7.8 L Test 07/18/17 12:39 Bedside Glucose 185 Medications Medications Current Medications Ondansetron HCl (Zofran Inj) 4 mg Q6H PRN IV NAUSEA AND/OR VOMITING Last administered on 07/16/17 10:17; Admin Dose 4 MG; Start 07/13/17 at 18:30 Acetaminophen (Tylenol Tab) 650 mg Q6H PRN PO PAIN LEVEL 1-3 OR FEVER; Start 07/13/17 at 18:30 Acetaminophen/ Hydrocodone Bitart ([place] (5/325)) 1 tab Q6H PRN PO MODERATE PAIN LEVEL 4-6 Last administered on 07/15/17 11:55; Admin Dose 1 TAB; Start 07/13/17 at 18:30 Famotidine (Pepcid) 20 mg Q12 PO Last administered on 07/18/17 08:25; Admin Dose 20 MG; Start 07/13/17 at 21:00 Enoxaparin Sodium (Lovenox) 40 mg DAILY SC Last administered on 07/16/17 07: 47; Admin Dose 40 MG; Start 07/14/17 at 09:00 IV Flush (NS 10 ml) 10 ml PRN PRN IV IV PROTOCOL; Start 07/13/17 at 18:30 Diagnostic Test (Pha) (Accu-Chek) 1 ea 02 XX ; Start 07/14/17 at 02:00 Miscellaneous Information 1 ea NOTE XX ; Start 07/13/17 at 19:00 Glucose (Glutose) 15 gm Q15M PRN PO DECREASED GLUCOSE; Start 07/13/17 at 19:00 Glucose (Glutose) 22.5 gm Q15M PRN PO DECREASED GLUCOSE; Start 07/13/17 at 19: 00 Dextrose (D50w Syringe) 25 ml Q15M PRN IV DECREASED GLUCOSE; Start 07/13/17 at 19:00 Dextrose (D50w Syringe) 50 ml Q15M PRN IV DECREASED GLUCOSE; Start 07/13/17 at 19:00 Glucagon (Glucagen) 1 mg Q15M PRN IM DECREASED GLUCOSE; Start 07/13/17 at 19: 00 Glucose (Glutose) 15 gm Q15M PRN BUCCAL DECREASED GLUCOSE; Start 07/13/17 at 19:00 Tramadol HCl (Ultram) 50 mg Q6H PRN PO PAIN Last administered on 07/17/17 05: 49; Admin Dose 50 MG; Start 07/14/17 at 00:00 Midodrine (Proamatine) 10 mg TID PO Last administered on 07/18/17 08:25; Admin Dose 10 MG; Start 07/14/17 at 21:00 Aspirin (Aspirin) 81 mg DAILY PO Last administered on 07/17/17 08:48; Admin Dose 81 MG; Start 07/16/17 at 10:00 FABI OSORIO Jul 18, 2017 13:26
--- NOTE | 2017-07-18 13:56 | RADRPT ---
PROCEDURE: Ultrasound guided paracentesis CLINICAL INDICATION: Ascites TECHNIQUE: The risks benefits and alternatives of the procedure were explained to the patient. In formed written consent was obtained. The patient understood the risks benefits and alternatives and wished to proceed with the procedure. A time out was performed. The overlying skin of the right lower quadrant of the abdomen was prepped and draped in the usual sterile fashion. Approximately 10 cc of lidocaine was injected locally for pain control. Utilizing ultrasound guidance, an 6-[place] p aracentesis catheter was placed into the peritoneal cavity without difficulty. Fluid was drained i nto vacuum bottles. After completion of draining fluid, the catheter was removed and direct pressur e was applied to the puncture site. A compression bandage was then placed at the puncture site. e patient tolerated the procedure well without complication. The fluid was not sent to the lab fo r further analysis. COMPARISON: None available FINDINGS: Surgeon: Edith HINOJOSA. Preprocedural diagnosis: Ascites. Postprocedural diagnosis: Ascites. Samples removed: 5200 cc of clear yellow fluid was obtained. Complications: None. Estimated blood loss: 0 cc. Condition: Stable and unchanged. IMPRESSION: 1. Successful ultrasound-guided paracentesis. RPTAT: II .Rush Sharma MD, MD Date Time Electronically viewed and signed by .Rush Sharma MD, on 07/18/2017 13:56 .M/
--- NOTE | 2017-07-18 14:10 | CONS ---
Date/Time of Note Date/Time of Note DATE: 07/18/17 TIME: 14:07 Consult Date/Type/Reason Admit Date/Time Jul 13, 2017 at 12:45 Initial Consult Date 07/14/17 Type of Consultation: neuro Ordering Provider: REI FONSECA MD Subjective mo acute events, feeling stronger Objective Vital Signs Date Time Temp Pulse Resp B/P Pulse Ox O2 Delivery O2 Flow Rate FiO2 07/18/17 12:41 98.0 75 20 90/55 96 Room Air Intake and Output 07/17/17 07/17/17 07/18/17 15:00 23:00 07:00 Intake Total 400 ml Balance 400 ml Results/Medications Result Diagram: 07/18/1704 07/18/17 0704 Results 24 hrs Laboratory Tests Test 07/17/17 17:26 07/17/17 20:32 07/18/17 07:04 07/18/17 08:20 Bedside Glucose 177 240 H 86 White Blood Count 5.3 Red Blood Count 3.37 L Hemoglobin 10.4 L Hematocrit 31.6 L Mean Corpuscular Volume 93.8 Mean Corpuscular Hemoglobin 30.9 Mean Corpuscular Hemoglobin Concent 32.9 Red Cell Distribution Width 15.1 H Platelet Count 179 # Mean Platelet Volume 9.0 Neutrophils % 57.3 Lymphocytes % 31.8 Monocytes % 8.6 Eosinophils % 1.1 Basophils % 0.8 Nucleated Red Blood Cells % 0.0 Neutrophils # 3.1 Lymphocytes # 1.7 Monocytes # 0.5 Eosinophils # 0.1 Basophils # 0.0 Nucleated Red Blood Cells # 0.0 Sodium Level 136 Potassium Level 3.9 Chloride Level 105 Carbon Dioxide Level 24 Anion Gap 11 Blood Urea Nitrogen 10 Creatinine 0.61 Glucose Level 94 Calcium Level 7.8 L Test 07/18/17 12:39 Bedside Glucose 185 Medications Current Medications Ondansetron HCl (Zofran Inj) 4 mg Q6H PRN IV NAUSEA AND/OR VOMITING Last administered on 07/16/17t 10:17; Admin Dose 4 MG; Start 07/13/17 at 18:30 Acetaminophen (Tylenol Tab) 650 mg Q6H PRN PO PAIN LEVEL 1-3 OR FEVER; Start 07/13/17 at 18:30 Acetaminophen/ Hydrocodone Bitart ([place] (5/325)) 1 tab Q6H PRN PO MODERATE PAIN LEVEL 4-6 Last administered on 07/15/17 11:55; Admin Dose 1 TAB; Start 07/13/17 at 18:30 Famotidine (Pepcid) 20 mg Q12 PO Last administered on 07/18/17 08:25; Admin Dose 20 MG; Start 07/13/17 at 21:00 Enoxaparin Sodium (Lovenox) 40 mg DAILY SC Last administered on 07/16/17 07: 47; Admin Dose 40 MG; Start 07/14/17 at 09:00 IV Flush (NS 10 ml) 10 ml PRN PRN IV IV PROTOCOL; Start 07/13/17 at 18:30 Diagnostic Test (Pha) (Accu-Chek) 1 ea 02 XX ; Start 07/14/17 at 02:00 Miscellaneous Information 1 ea NOTE XX ; Start 07/13/17 at 19:00 Glucose (Glutose) 15 gm Q15M PRN PO DECREASED GLUCOSE; Start 07/13/17 at 19:00 Glucose (Glutose) 22.5 gm Q15M PRN PO DECREASED GLUCOSE; Start 07/13/17 at 19: 00 Dextrose (D50w Syringe) 25 ml Q15M PRN IV DECREASED GLUCOSE; Start 07/13/17 at 19:00 Dextrose (D50w Syringe) 50 ml Q15M PRN IV DECREASED GLUCOSE; Start 07/13/17 at 19:00 Glucagon (Glucagen) 1 mg Q15M PRN IM DECREASED GLUCOSE; Start 07/13/17 at 19: 00 Glucose (Glutose) 15 gm Q15M PRN BUCCAL DECREASED GLUCOSE; Start 07/13/17 at 19:00 Tramadol HCl (Ultram) 50 mg Q6H PRN PO PAIN Last administered on 07/17/17 05: 49; Admin Dose 50 MG; Start 07/14/17 at 00:00 Midodrine (Proamatine) 10 mg TID PO Last administered on 07/18/17 13:23; Admin Dose 10 MG; Start 07/14/17 at 21:00 Aspirin (Aspirin) 81 mg DAILY PO Last administered on 07/17/17 08:48; Admin Dose 81 MG; Start 07/16/17 at 10:00 Assessment/Plan Chief Complaint/Hosp Course Exam: Neurological: AO x 3 CN II-XII intact, except decreased sensation on the left face, DTR's symmetric, left arm 4+/5 weakness, left leg 3/5, decreased perception of touch on the left A/P: Acute ischemic CVA, improving. Continue PT. Cont ASA, keep normotensive, euglycemic,I'll avoid statin given cirrhosis. Problems: SHANNON ARREDONDO MD Jul 18, 2017 14:10
[2017-07-19] VITALS (8 sets, daily range): BP systolic 78–90; BP diastolic 51–55; PULSE 63–73; RESP 16–18
[2017-07-19] MEDS: ACCU-CHEK XX SCH (02:00)
[2017-07-19] MEDS: INSULIN ASPART [NOVOLOG] 3 ML PEN SC SCH ×3 (07:55→13:22)
[2017-07-19] MEDS: MIDODRINE 5 MG TAB PO SCH ×2 (09:44→13:35)
[2017-07-19] MEDS: FAMOTIDINE 20 MG TAB PO SCH (09:44)
[2017-07-19] MEDS: ASPIRIN 81 MG TAB PO SCH (09:44)
[2017-07-19] MEDS: ENOXAPARIN 40 MG/0.4 ML SYG SC SCH (10:08)
--- NOTE | 2017-07-19 12:44 | PDOCDIS ---
Discharge Instructions DIAGNOSIS Discharge Diagnosis Acute CVA Hypotension Cirrhosis with ascites s.p paracentesis CONDITION Patient Condition: Fair HOME CARE INSTRUCTIONS: Special Diet: 1800 ADA ACTIVITY: Activity Restrictions: Slowly Increase Activity Avoid Heavy Housework FOLLOW UP/APPOINTMENTS Follow-up Plan f/u PCP in 1-2 weeks Home health arranged for PT/Safety eval f/u Dr Perez in1 week Return to ER if has chest pain/dizzines/sob/fevers and chills REI FONSECA MD Jul 19, 2017 12:44
[2017-07-19] MEDS ORDERED: ASPI81TA3 PO (12:48)
[2017-07-19] MEDS ORDERED: MIDO5TAB19 PO (12:48)
--- NOTE | 2017-07-20 07:08 | DS ---
DATE OF ADMISSION: 07/13/2017 DATE OF DISCHARGE: 07/19/2017 FINAL DISCHARGE DIAGNOSES: 1. Hypotension with a history of autoimmune cirrhosis. The patient has history of baseline blood p ressure of 80s status post paracentesis in the ER with hypertension. Blood pressure dropped to 60s, likely secondary to hypovolemia. 2. Left-sided numbness, weakness, resolving secondary to acute ischemic stroke followed by neurolog y. 3. Ascites status post paracentesis x2. 4. History of autoimmune cirrhosis. 5. History of hepatic encephalopathy. 6. Diabetes, controlled. 7. Degenerative joint disease of the cervical spine. HOSPITAL COURSE: This is a 62-year-old woman with past medical history of autoimmune cirrhosis who gets weekly biweekly paracentesis at outside hospital, presented to emergency department having incr eased abdominal distention for past week. The patient had been followed by ____ in [place] normal blood pressure at home ranges a systolic of 80s. Her last paracentesis was about a week ag o, started noticing increasing abdominal distention, hard for her to breathe and came to the emergen cy department for paracentesis. Currently, the patient's family and patient had been noticing weakn ess, numbness in the left side of the body, especially in the left side of the face, left leg and le ft arm since yesterday. There is some pain in the left eye. Denied any headache, blurry vision, sp eech or swallowing, issues. The patient had a paracentesis that was done in the ER and removed arou nd 4 liters post-paracentesis. Blood pressure drop to like 65. Patient was admitted to ICU, initia lly was given with albumin then was also given NS in the ER; however, was maintained on a Levophed d rip after giving albumin. Patient also had echocardiogram that showed normal left ventricular systo lic function, normal left cavity size, abnormal diastolic function. The patient was seen by ___ __ should not need for a possible stroke. Had a CT of the head that was negative for any acute mass , shift or bleed; however, there was a very high clinical suspicion of stroke due to weakness. Vesta ent had initial MRI of the brain that showed no evidence of acute intracranial infarct, hemorrhage o r acute intracranial pathology. Also had a cervical spine MRI that showed mild to moderate multilev el degenerative changes without noted impingement. Also had an MRI of the brain that showed no evid ence of aneurysm, intracranial stenosis. The patient also had abdominal ultrasound that had cirrhot ic liver, cholelithiasis with gallbladder wall thickening, echogenic kidneys with medical renal dise ase and moderate ascites and patient had a HIDA scan also that was negative for acute cholecystitis. The patient was continued on aspirin and statins were not continued as per neurology due to patien t of history of cirrhosis. Every day the patient was feeling much better. Patient was also started on midodrine, which was titrated up to 10 t.i.d. The patient was seen by Dr. Josue for a GI consu ltation. The patient's blood pressures are much improved. Patient was seen by physical therapy and was ambulating and was discharged from physical therapy and per them, the patient is stable to be d ischarged home. The patient also had a repeat paracentesis on 07/18/2017 that removed about 5 liter s of fluid. DISCHARGE INSTRUCTIONS: The patient was instructed to follow up with PCP in 1 to 2 weeks. Follow u p with Dr. Mark in about 1 to 2 weeks. Patient was instructed to follow up with a paracentesis as an outpatient or might benefit from PleurX catheter. The patient was explained. NEW MEDICATIONS 1. Aspirin enteric coated 81 mg p.o. every day. 2. Midodrine 10 mg p.o. t.i.d. HOME MEDICATIONS: Continue with home medications which were: 1. Ultram for pain. 2. Lasix 40 b.i.d. 3. Lactulose as needed. 4. Prilosec 20. 5. Zofran. 6. Lantus 10 units. 7. Mycophenolate 500 t.i.d. DISCHARGE INSTRUCTIONS: Discharge arrangement was made for home health. The patient was directed t o return to the ER if she has worsening abdominal pain, fevers and chills. Dictated By: REI MENCHACA/REI Conf#: [id number] DID#: [id number]
== END 2017-07-19 16:28 | disposition short-term general hospital (02) | DRG 314 ==
LOC: E/R 09:56 → ICU 12:45 → TEL 07-14 21:54
PROVIDERS: ADMIT Internal Medicine; ATTEND Internal Medicine
PROC: 0W9G3ZZ Drainage of Peritoneal Cavity, Percutaneous Approach (ICD-10-PCS; principal; 2017-07-13)
PROC: 02HV33Z Insertion of Infusion Device into Superior Vena Cava, Percutaneous Approach (ICD-10-PCS; 2017-07-13)
PROC: 0W9G3ZZ Drainage of Peritoneal Cavity, Percutaneous Approach (ICD-10-PCS; 2017-07-18)
DX: I95.89 Other hypotension (principal); I63.8 Other cerebral infarction; R18.8 Other ascites; K74.69 Other cirrhosis of liver; E11.9 Type 2 diabetes mellitus without complications; R20.0 Anesthesia of skin; Z86.718 Personal history of other venous thrombosis and embolism; Z79.4 Long term (current) use of insulin; K29.70 Gastritis, unspecified, without bleeding; R10.11 Right upper quadrant pain; E86.1 Hypovolemia; M47.9 Spondylosis, unspecified
CPT/HCPCS: 36415; 36569; 70450; 70544; 70549; 70551; 71010; 72141; 76700; 76937; 78226; 80048; 80053; 80061; 82533; 82962; 83690; 84443; 84484; 85025; 85610; 85730; 93005; 93306; 96372; 96374; 96375; 97162; A9537; J0696; J1650; J1815; J2405; J7030; J7040; P9047

== ENCOUNTER 2017-08-04 09:48 | Emergency (ER) | payer OTHER ==
[~2017-08-04] VITALS: Wt 58.0 kg
[~2017-08-04 09:48] MED LIST changes: +ASPI81TA3 PO; -DICY10CA60 PO; -FURO20TA3 PO; +FURO40TA4 PO; +MIDO5TAB19 PO
[2017-08-04 09:49] VITALS: Wt 58.0 kg
[2017-08-04] MEDS ORDERED: CEPHALEXIN 500 MG CAP PO ONE (11:30)
--- NOTE | 2017-08-04 11:31 | ERD ---
ER Documentation Chief Complaint Chief Complaint states pericentesis HPI 62-year-old woman here for paracentesis. She has a history of autoimmune cirrhosis and recurrent ascites requiring paracentesis. She denies recent fevers or chills, no blood per rectum or melena, no vomiting or diarrhea, no headache or blurry vision. ROS All systems reviewed and are negative except as per history of present illness. Medications Home Meds Active Scripts Cephalexin* (Keflex*) 500 Mg Capsule, 500 MG PO TID for 5 Days, CAP Prov:ALIA BROOKS MD 08/04/17 Aspirin (Aspirin) 81 Mg Chew, 81 MG PO DAILY for 30 Days, #30 TAB Prov:REI FONSECA MD 07/19/17 Midodrine* (Midodrine*) 5 Mg Tablet, 10 MG PO TID for 30 Days, #90 TAB Prov:REI FONSECA MD 07/19/17 Reported Medications Furosemide* (Furosemide*) 40 Mg Tablet, 40 MG PO BID, TAB 07/13/17 Omeprazole* (Omeprazole*) 20 Mg Capsule.dr, 20 MG PO DAILY, #30 CAP 05/26/17 Tramadol Hcl* (Ultram*) 50 Mg Tablet, 50 MG PO Q6H Y for PAIN, TAB 05/26/17 Ondansetron Hcl* (Zofran*) 8 Mg Tab, 8 MG PO Q6H Y for NAUSEA AND OR VOMITING, TAB 05/26/17 Lactulose* (Lactulose*) 10 Gm/15 Ml Solution, 10 GM PO NEEDED, ML 05/26/17 Mycophenolate Mofetil* (Cellcept*) 500 Mg Tablet, 500 MG PO TID, #60 TAB 12/10/16 Insulin Glargine* (Lantus*) 100 Unit/Ml Soln, 10 UNIT SC QAM, #1 VIAL 12/10/16 Allergies Allergies: Coded Allergies: No Known Allergy (Unverified , 07/13/17) PMhx/Soc History of autoimmune cirrhosis with recurrent ascites requiring paracentesis, previous stroke with chronic left-sided paresthesias, previous hepatic encephalopathy, diabetes mellitus, arthritis History of Surgery: Yes (appendectomy, 2 ) Anesthesia Reaction: No Hx Neurological Disorder: No Hx Respiratory Disorders: No Hx Cardiac Disorders: No Hx Psychiatric Problems: No Hx Miscellaneous Medical Probl: Yes (DM, DVT) Hx Alcohol Use: No Hx Substance Use: No Hx Tobacco Use: No Smoking Status: Never smoker FmHx Family History: diabetes Physical Exam Vitals Vital Signs Date Time Temp Pulse Resp B/P Pulse Ox O2 Delivery O2 Flow Rate FiO2 08/04/17 12:32 86 20 98/62 99 Room Air 08/04/17 09:49 97.9 75 20 104/66 100 Physical Exam GENERAL: Well-developed, well-nourished, well-hydrated, in no apparent distress , looks nontoxic in appearance HEENT: Moist mucous membranes, pink conjunctiva, no cervical spine tenderness or step-off deformities, no goiter, no jaundice or icterus, extraocular movements intact without pain. No submandibular induration, and no pharyngeal erythema NEURO: Alert and oriented 3, cranial nerves II through XII intact bilaterally, pupils equal round reactive to light, no focal deficits or facial asymmetry, sensation intact distally Strength 5/5 in upper and lower extremities bilaterally CARDIAC: Regular rate and rhythm, no murmurs rubs or gallops LUNGS: Clear bilaterally no wheezing crackles or stridor ABDOMEN: Soft, protuberant abdomen, mild distention, no rigidity or rebound SKIN: Warm and dry to touch, no abrasions, contusions, or hematomas, no lacerations, no ecchymosis, no target lesions, and without ulcers EXTREMITIES: No clubbing cyanosis or edema, calves are bilaterally symmetrical, no Homans sign, no popliteal cord sign. Distal pulses equal and bilateral PSYCH: Normal affect without agitation or irritability Result Diagram: 08/04/17 1045 08/04/17 1045 Results 24 hrs Laboratory Tests Test 08/04/17 10:45 08/04/17 10:50 White Blood Count 6.210^3/ul Red Blood Count 3.3610^6/ul Hemoglobin 10.4g/dl Hematocrit 31.3% Mean Corpuscular Volume 93.2fl Mean Corpuscular Hemoglobin 31.0pg Mean Corpuscular Hemoglobin Concent 33.2g/dl Red Cell Distribution Width 15.6% Platelet Count 13855^3/UL Mean Platelet Volume 9.6fl Neutrophils % 69.0% Lymphocytes % 22.1% Monocytes % 7.5% Eosinophils % 0.5% Basophils % 0.6% Nucleated Red Blood Cells % 0.0/100WBC Neutrophils # 4.310^3/ul Lymphocytes # 1.410^3/ul Monocytes # 0.510^3/ul Eosinophils # 0.010^3/ul Basophils # 0.010^3/ul Nucleated Red Blood Cells # 0.010^3/ul Prothrombin Time 14.4Sec Prothrombin Time Ratio 1.1 INR International Normalized Ratio 1.12 Sodium Level 134mmol/L Potassium Level 3.8mmol/L Chloride Level 96mmol/L Carbon Dioxide Level 31mmol/L Anion Gap 11 Blood Urea Nitrogen 13mg/dl Creatinine 0.69mg/dl Glucose Level 140mg/dl Calcium Level 8.0mg/dl Total Bilirubin 0.7mg/dl Direct Bilirubin 0.00mg/dl Indirect Bilirubin 0.7mg/dl Aspartate Amino Transf (AST/SGOT) 46IU/L Alanine Aminotransferase (ALT/SGPT) 24IU/L Alkaline Phosphatase 140IU/L Ammonia < 9umol/l Total Protein 6.2g/dl Albumin 2.4g/dl Globulin 3.80g/dl Albumin/Globulin Ratio 0.63 Lipase 121U/L Urine Color JOANNA Urine Clarity CLOUDY Urine pH 5.0 Urine Specific [place] 1.019 Urine Ketones NEGATIVEmg/dL Urine Nitrite NEGATIVEmg/dL Urine Bilirubin NEGATIVEmg/dL Urine Urobilinogen 1+mg/dL Urine Leukocyte Esterase 3+Shawn/ul Urine Microscopic RBC 18/HPF Urine Microscopic WBC 73/HPF Urine Squamous Epithelial Cells MODERATE/HPF Urine Mucus FEW/HPF Urine Hemoglobin NEGATIVEmg/dL Urine Glucose NEGATIVEmg/dL Urine Total Protein NEGATIVEmg/dl Current Medications Medications (Trade) Dose Ordered Sig/Rohit Route PRN Reason Start Time Stop Time Status Last Admin Dose Admin Cephalexin (Keflex) 500 mg ONCE ONCE PO 08/04/17 11:30 08/04/17 11:34 DC 08/04/17 12:06 Lidocaine (Xylocaine 1% (Mpf)) 5 ml STK-MED ONCE .ROUTE 08/04/17 13:46 08/04/17 13:47 DC 08/04/17 13:48 Procedures/MDM CBC and electrolytes were normal, liver function tests were normal, troponin was negative, ammonia level low. Urine analysis was positive for infection. I treated her here with cephalexin 500 mg p.o. 1. Patient underwent ultrasound-guided paracentesis by interventional radiology department. About 5 L of ascitic fluid was removed successfully. Differential diagnoses considered, included but not limited to acute coronary syndrome, pulmonary embolism, aortic dissection, abdominal aortic aneurysm, sepsis, stroke, meningitis, encephalitis, pneumonia, appendicitis, cholecystitis , bowel obstruction, pyelonephritis, nephrolithiasis, cystitis, as well as metabolic, hematologic, and electrolyte abnormalities. As well as abscess, cellulitis, fractures, and dislocations. Patient feels much better at this time, and vital signs are normal, symptoms have improved. I did give strict instructions to return to the ED if symptoms continue or worsen, patient will otherwise follow-up with primary care physician. Patient understood instructions and agreed to plan. Disclaimer: Inadvertent spelling and grammatical errors are likely due to EHR/ dictation software use and do not reflect on the overall quality of patient care. Also, please note that the electronic time recorded on this note does not necessarily reflect the actual time of the patient encounter. Departure Diagnosis: Primary Impression: Hepatic cirrhosis Hepatic cirrhosis type: unspecified hepatic cirrhosis Ascites presence: with ascites Qualified Code: K74.60 - Cirrhosis of liver with ascites, unspecified hepatic cirrhosis type Additional Impressions: Ascites Ascites type: other type Qualified Code: R18.8 - Other ascites UTI (urinary tract infection) Urinary tract infection type: acute cystitis Hematuria presence: without hematuria Qualified Code: N30.00 - Acute cystitis without hematuria Condition: ALIA Dc MD Aug 04, 2017 11:31
[2017-08-04] MEDS ORDERED: CEPH-443 PO (11:32)
[2017-08-04] MEDS ORDERED: LIDOCAINE 1% (MPF) 5 ML VIAL ONE (13:46)
[2017-08-04 15:03] VITALS: BP 98/55; PULSE 65; RESP 18; TEMP 97.9
--- NOTE | 2017-08-04 15:05 | RADRPT ---
PROCEDURE: Ultrasound guided paracentesis. CLINICAL INDICATION: Ascites and shortness of breath. COMPARISON: 07/18/2017. TECHNIQUE: The risks, benefits, and alternatives were explained to the patient and/or the patient's family, inc luding but not limited to bleeding, infection, pain, visceral or vascular damage, shock, and . The patient and/or the patient's family understood the risks and the alternatives and wished to pro ceed with the procedure. Informed written consent was obtained. A procedural time out was performed . The patient's name, date of , and procedure to be performed were verified. Utilizing ultrasound guidance, optimal location for entry to the peritoneal cavity was ascertained. The overlying skin was prepped and draped in the usual sterile fashion. Approximately 10 ml of 1% Xylocaine was injected locally for pain control. Using ultrasound guidance, an 8 [place] catheter wa s introduced into the peritoneal cavity in the right lower quadrant without difficulty. FINDINGS: Initial images demonstrate ascites. Approximately 4.6 liters of serous fluid was aspirated and disc arded. The patient tolerated the procedure well without complication. IMPRESSION: 1. Successful ultrasound-guided paracentesis. RPTAT: QQ .Robbie Geller MD, Date Time Electronically viewed and signed by .Robbie Geller MD, on 08/04/2017 15:05 .R/
== END 2017-08-04 15:10 | disposition home or self-care (01) ==
LOC: E/R 09:48
DX: K74.60 Unspecified cirrhosis of liver (principal); N30.00 Acute cystitis without hematuria; E11.9 Type 2 diabetes mellitus without complications; Z79.82 Long term (current) use of aspirin; Z79.4 Long term (current) use of insulin
CPT/HCPCS: 36415; 80053; 81001; 82140; 83690; 85025; 85610; Z7502; Z7610

== ENCOUNTER 2017-08-16 09:46 | Emergency (ER) | payer OTHER ==
[~2017-08-16] VITALS: Ht 160 cm; Wt 58.3 kg
[~2017-08-16 09:46] MED LIST changes: +CEPH-443 PO
[2017-08-16 09:48] VITALS: Ht 160 cm; Wt 58.3 kg
--- NOTE | 2017-08-16 10:02 | ERD ---
ER Documentation Chief Complaint Chief Complaint PER PT FAMILY PT NEEDS PARACENTESIS, AP, LAST TIME 10 AGO HPI This is a 62-year-old female with a known history of diabetes, autoimmune hepatitis and cirrhosis with chronic progressive ascites requiring recurrent paracenteses who is presenting with abdominal discomfort and distention. The patient feels like she needs a paracentesis. Her last paracentesis was on August 04, 2017. She requires them approximately every 10 days. The patient denies feeling sick recently. The patient denies fever or chills. The patient has had no headache or vision changes. The patient does not endorse neck or back pain. The patient denies lightheadedness or dizziness. The patient has had no chest pain or shortness of breath or trouble breathing. The patient denies vomiting, but she does endorse some mild nausea related to her abdominal discomfort. The patient denies changes to bowel movements or urination. The patient has had no focal deficits. The patient has had no weakness or numbness or tingling to the face or extremities. The patient does endorse chronic lower extremity swelling. This is unchanged today. ROS All systems reviewed and are negative except as per history of present illness. Medications Home Meds Active Scripts Aspirin (Aspirin) 81 Mg Chew, 81 MG PO DAILY for 30 Days, #30 TAB Prov:REI FONSECA MD 07/19/17 Midodrine* (Midodrine*) 5 Mg Tablet, 10 MG PO TID for 30 Days, #90 TAB Prov:REI FONSECA MD 07/19/17 Reported Medications Furosemide* (Furosemide*) 40 Mg Tablet, 40 MG PO BID, TAB 07/13/17 Omeprazole* (Omeprazole*) 20 Mg Capsule.dr, 20 MG PO DAILY, #30 CAP 05/26/17 Tramadol Hcl* (Ultram*) 50 Mg Tablet, 50 MG PO Q6H Y for PAIN, TAB 05/26/17 Ondansetron Hcl* (Zofran*) 8 Mg Tab, 8 MG PO Q6H Y for NAUSEA AND OR VOMITING, TAB 05/26/17 Lactulose* (Lactulose*) 10 Gm/15 Ml Solution, 10 GM PO NEEDED, ML 05/26/17 Mycophenolate Mofetil* (Cellcept*) 500 Mg Tablet, 500 MG PO TID, #60 TAB 12/10/16 Insulin Glargine* (Lantus*) 100 Unit/Ml Soln, 10 UNIT SC QAM, #1 VIAL 12/10/16 Discontinued Scripts Cephalexin* (Keflex*) 500 Mg Capsule, 500 MG PO TID for 5 Days, CAP Prov:ALIA BROOKS MD 08/04/17 Allergies Allergies: Coded Allergies: No Known Allergy (Unverified , 07/13/17) PMhx/Soc History of Surgery: Yes (appendectomy, 2 , frequent paracentesis) Anesthesia Reaction: No Hx Neurological Disorder: No Hx Respiratory Disorders: No Hx Cardiac Disorders: No Hx Psychiatric Problems: No Hx Miscellaneous Medical Probl: Yes (DM, DVT , autoimmune hepatitis, cirrhosis , Ascites) Hx Alcohol Use: No Hx Substance Use: No Hx Tobacco Use: No FmHx Family History: diabetes Physical Exam Vitals Vital Signs Date Time Temp Pulse Resp B/P Pulse Ox O2 Delivery O2 Flow Rate FiO2 08/16/17 09:48 97.4 82 20 108/66 100 Physical Exam Const: No apparent distress, well-developed, well-nourished Head: Normocephalic, Atraumatic Eyes: Normal Conjunctiva. Extraocular movements intact. Pupils equal, round and reactive to light ENT: Normal External Ears, Nose and Mouth. Neck: Full range of motion. No meningismus. Resp: Clear to auscultation bilaterally, No wheezes, rales or rhonchi Cardio: Regular rate and rhythm. No murmurs, rubs or gallops Abd: Soft, non tender. Distended. + Fluid shift. Ascites. Normal bowel sounds Skin: No petechiae or rashes Back: No midline tenderness. No CVA tenderness Ext: No cyanosis. 1+ BLE pitting edema. Neur: Awake and alert, oriented 4. Cranial nerves intact. No facial droop. Normal strength, sensation and coordination. Psych: Normal Mood and Affect Result Diagram: 08/16/17 1024 08/16/17 1024 Results 24 hrs Laboratory Tests Test 08/16/17 10:24 White Blood Count 6.010^3/ul Red Blood Count 3.2210^6/ul Hemoglobin 10.0g/dl Hematocrit 30.0% Mean Corpuscular Volume 93.2fl Mean Corpuscular Hemoglobin 31.1pg Mean Corpuscular Hemoglobin Concent 33.3g/dl Red Cell Distribution Width 15.3% Platelet Count 88808^3/UL Mean Platelet Volume 9.4fl Neutrophils % 77.5% Lymphocytes % 14.6% Monocytes % 6.8% Eosinophils % 0.3% Basophils % 0.5% Nucleated Red Blood Cells % 0.0/100WBC Neutrophils # 4.710^3/ul Lymphocytes # 0.910^3/ul Monocytes # 0.410^3/ul Eosinophils # 0.010^3/ul Basophils # 0.010^3/ul Nucleated Red Blood Cells # 0.010^3/ul Activated Partial Thromboplast Time 32.2Sec Sodium Level 131mmol/L Potassium Level 4.1mmol/L Chloride Level 92mmol/L Carbon Dioxide Level 35mmol/L Anion Gap 8 Blood Urea Nitrogen 11mg/dl Creatinine 0.73mg/dl Glucose Level 237mg/dl Calcium Level 8.5mg/dl Total Bilirubin 0.6mg/dl Direct Bilirubin 0.00mg/dl Indirect Bilirubin 0.6mg/dl Aspartate Amino Transf (AST/SGOT) 33IU/L Alanine Aminotransferase (ALT/SGPT) 26IU/L Alkaline Phosphatase 155IU/L Total Protein 5.9g/dl Albumin 2.3g/dl Globulin 3.60g/dl Albumin/Globulin Ratio 0.63 Current Medications Medications (Trade) Dose Ordered Sig/Rohit Route PRN Reason Start Time Stop Time Status Last Admin Dose Admin Lidocaine (Xylocaine 1% (Mpf)) 5 ml STK-MED ONCE .ROUTE 08/16/17 11:13 08/16/17 11:14 DC 08/16/17 11:22 Procedures/[facility] The patient's presentation warrants further investigation. The patient does have abdominal distention which clinically appears to be ascites. She is otherwise well-appearing. Blood work will be obtained for evaluation to receive a paracentesis. LABS The patient's blood work was obtained and reviewed. The patient's CBC shows no leukocytosis and no left shift. The patient is afebrile and does not appear systemically ill. I do not suspect a systemic infection. The patient is mildly anemic today. She is a normocytic anemia, which is likely associated with chronic disease. This does not need to be emergently treated. The patient's platelet count is unremarkable. The patient's CMP shows a mild hyponatremia and hypochloremia. This is not need to be emergently treated. The patient does have a metabolic alkalosis, which may be associated with a respiratory acidosis from COPD, which she also has. She has a hyperglycemia but no anion gap. I do not suspect DKA. This does not need to be emergently treated either. The patient does have a hypoalbuminemia, which is likely associated with her cirrhosis. She also has an elevated alk phos. IMAGING US Paracentesis FINDINGS: Initial images demonstrate ascites. Approximately 5.35 liters of serous fluid was aspirated and discarded. The patient tolerated the procedure well without complication. IMPRESSION: Successful ultrasound-guided paracentesis. Electronically viewed and signed by .Robbie Geller MD, MD on 08/16/2017 11:41 TREATMENT/DISPOSITION The patient had a successful paracentesis in the emergency department with resolution of her abdominal discomfort. The patient's vital signs remained unremarkable after the paracentesis. At this time, I feel that the patient stable for discharge. The patient will need follow-up with his primary care physician in 2-3 days. Patient will also follow-up with her geospatial engineer. The patient will be given strict precautions with which to return to the emergency department. Disclaimer: Inadvertent spelling and grammatical errors are likely due to EHR/ dictation software use and do not reflect on the overall quality of patient care. Note that the electronic time recorded on this note does not necessarily reflect the actual time of the patient encounter. Departure Diagnosis: Primary Impression: Ascites Ascites type: other type Qualified Code: R18.8 - Other ascites Additional Impression: Abdominal distension Condition: Stable MANUEL RANGEL MD Aug 16, 2017 10:02
[2017-08-16 10:56] LABS: BASOPHILS % 0.5 % (0.0-2.0); EOSINOPHILS % 0.3 % (0.0-7.0); LYMPHOCYTES # 0.9 10^3/ul (0.8-2.9); LYMPHOCYTES % 14.6 % (15.0-51.0); MEAN CORPUSCULAR HEMOGLOBIN 31.1 pg (29.0-33.0); MEAN CORPUSCULAR HGB CONC 33.3 g/dl (32.0-37.0); MEAN CORPUSCULAR VOLUME 93.2 fl (82.0-101.0); MEAN PLATELET VOLUME 9.4 fl (7.4-10.4); MONOCYTE # 0.4 10^3/ul (0.3-0.9); MONOCYTES % 6.8 % (0.0-11.0); NEUTROPHIL # 4.7 10^3/ul (1.6-7.5); NEUTROPHILS % 77.5 % (39.0-77.0); PLATELET COUNT 203 10^3/UL (140-415); RED BLOOD COUNT 3.22 10^6/ul (4.20-5.40); RED CELL DISTRIBUTION WIDTH 15.3 % (11.5-14.5)
[2017-08-16] MEDS ORDERED: LIDOCAINE 1% (MPF) 5 ML VIAL ONE (11:13)
[2017-08-16 11:28] LABS: ALBUMIN 2.3 g/dl (3.3-4.9); ALBUMIN/GLOBULIN RATIO 0.63; BILIRUBIN,INDIRECT 0.6 mg/dl (0-1.1); BILIRUBIN,TOTAL 0.6 mg/dl (0.2-1.3); CALCIUM 8.5 mg/dl (8.4-10.2); CREATININE 0.73 mg/dl (0.44-1.00); POTASSIUM 4.1 mmol/L (3.5-5.1); TOTAL PROTEIN 5.9 g/dl (6.1-8.1)
--- NOTE | 2017-08-16 11:41 | RADRPT ---
PROCEDURE: Ultrasound guided paracentesis. CLINICAL INDICATION: Ascites and shortness of breath. COMPARISON: 08/04/2017. TECHNIQUE: The risks, benefits, and alternatives were explained to the patient and/or the patient's family, inc luding but not limited to bleeding, infection, pain, visceral or vascular damage, shock, and . The patient and/or the patient's family understood the risks and the alternatives and wished to pro ceed with the procedure. Informed written consent was obtained. A procedural time out was performed . The patient's name, date of , and procedure to be performed were verified. Utilizing ultrasound guidance, optimal location for entry to the peritoneal cavity was ascertained. The overlying skin was prepped and draped in the usual sterile fashion. Approximately 10 ml of 1% Xylocaine was injected locally for pain control. Using ultrasound guidance, an 8 [place] catheter wa s introduced into the peritoneal cavity in the right lower quadrant without difficulty. FINDINGS: Initial images demonstrate ascites. Approximately 5.35 liters of serous fluid was aspirated and dis carded. The patient tolerated the procedure well without complication. IMPRESSION: 1. Successful ultrasound-guided paracentesis. RPTAT: QQ .Robbie Geller MD, Date Time Electronically viewed and signed by .Robbie Geller MD, on 08/16/2017 11:41 .R/
[2017-08-16 11:45] VITALS: BP 98/78; PULSE 70; RESP 18
== END 2017-08-16 12:56 | disposition home or self-care (01) ==
LOC: E/R 09:46
DX: R18.8 Other ascites (principal); E11.9 Type 2 diabetes mellitus without complications; R10.9 Unspecified abdominal pain; Z79.4 Long term (current) use of insulin; Z79.82 Long term (current) use of aspirin
CPT/HCPCS: 36415; 80053; 85025; 85730; Z7502; Z7610

== ENCOUNTER 2017-08-27 09:15 | Emergency (ER) | payer OTHER ==
[~2017-08-27] VITALS: Ht 157.5 cm; Wt 58.1 kg
[~2017-08-27 09:15] MED LIST changes: -CEPH-443 PO
[2017-08-27 09:21] VITALS: Ht 157.5 cm; Wt 58.1 kg
[2017-08-27] MEDS ORDERED: ONDANSETRON (ODT) 4 MG TAB ODT STA (09:40)
[2017-08-27] MEDS ORDERED: HYDROCODONE/APAP (10/325) TAB PO ONE (10:00)
[2017-08-27] MEDS ORDERED: LIDOCAINE 1% (MPF) 5 ML VIAL ONE (10:56)
--- NOTE | 2017-08-27 11:14 | RADRPT ---
PROCEDURE: Ultrasound guided paracentesis. CLINICAL INDICATION: Ascites and shortness of breath. COMPARISON: 08/16/2017. TECHNIQUE: The risks, benefits, and alternatives were explained to the patient and/or the patient's family, inc luding but not limited to bleeding, infection, pain, visceral or vascular damage, shock, and . The patient and/or the patient's family understood the risks and the alternatives and wished to pro ceed with the procedure. Informed written consent was obtained. A procedural time out was performed . The patient's name, date of , and procedure to be performed were verified. Utilizing ultrasound guidance, optimal location for entry to the peritoneal cavity was ascertained. The overlying skin was prepped and draped in the usual sterile fashion. Approximately 10 ml of 1% Xylocaine was injected locally for pain control. Using ultrasound guidance, an 8 [place] catheter wa s introduced into the peritoneal cavity in the right lower quadrant without difficulty. FINDINGS: Initial images demonstrate ascites. Approximately 4.6 liters of serous fluid was aspirated and disc arded. The patient tolerated the procedure well without complication. IMPRESSION: 1. Successful ultrasound-guided paracentesis. RPTAT: QQ .Robbie Geller MD, Date Time Electronically viewed and signed by .Robbie Geller MD, on 08/27/2017 11:14 .R/
[2017-08-27 11:35] VITALS: BP 101/62; PULSE 71; RESP 18
[2017-08-27] MEDS ORDERED: MIDO10TA PO (11:50)
--- NOTE | 2017-08-27 13:10 | ERD ---
ER Documentation Chief Complaint Chief Complaint Pt presents with AP due to abd ascietis. Last para. 12 days ago. HPI Patient is a 62-year-old female with cirrhosis who presents saying that she "needs a paracentesis". She has abdominal pain from distention. She gets paracentesis approximately every 10 days. She also needs a refill for her Midodrine. She has no fevers. Upon review of old medical records the patient has multiple visits for similar type complaints. ROS All systems reviewed and are negative except as per history of present illness. Medications Home Meds Active Scripts Midodrine* (Midodrine*) 10 Mg Tablet, 10 MG PO TID for 14 Days, TAB Prov:NERI FABIAN MD 08/27/17 Aspirin (Aspirin) 81 Mg Chew, 81 MG PO DAILY for 30 Days, #30 TAB Prov:REI FONSECA MD 07/19/17 Midodrine* (Midodrine*) 5 Mg Tablet, 10 MG PO TID for 30 Days, #90 TAB Prov:REI FONSECA MD 07/19/17 Reported Medications Furosemide* (Furosemide*) 40 Mg Tablet, 40 MG PO BID, TAB 07/13/17 Omeprazole* (Omeprazole*) 20 Mg Capsule.dr, 20 MG PO DAILY, #30 CAP 05/26/17 Tramadol Hcl* (Ultram*) 50 Mg Tablet, 50 MG PO Q6H Y for PAIN, TAB 05/26/17 Ondansetron Hcl* (Zofran*) 8 Mg Tab, 8 MG PO Q6H Y for NAUSEA AND OR VOMITING, TAB 05/26/17 Lactulose* (Lactulose*) 10 Gm/15 Ml Solution, 10 GM PO NEEDED, ML 05/26/17 Mycophenolate Mofetil* (Cellcept*) 500 Mg Tablet, 500 MG PO TID, #60 TAB 12/10/16 Insulin Glargine* (Lantus*) 100 Unit/Ml Soln, 10 UNIT SC QAM, #1 VIAL 12/10/16 Allergies Allergies: Coded Allergies: No Known Allergy (Unverified , 07/13/17) PMhx/Soc History of Surgery: Yes (appendectomy, 2 , frequent paracentesis) Anesthesia Reaction: No Hx Neurological Disorder: No Hx Respiratory Disorders: No Hx Cardiac Disorders: No Hx Psychiatric Problems: No Hx Miscellaneous Medical Probl: Yes (DM, DVT , autoimmune hepatitis, cirrhosis , Ascites) Hx Alcohol Use: No Hx Substance Use: No Hx Tobacco Use: No Smoking Status: Never smoker FmHx Family History: diabetes Physical Exam Vitals Vital Signs Date Time Temp Pulse Resp B/P Pulse Ox O2 Delivery O2 Flow Rate FiO2 08/27/17 11:35 71 18 101/62 100 Room Air 08/27/17 09:21 97.7 82 18 109/70 100 Physical Exam Const: Moderate distress secondary to pain Head: Atraumatic Eyes: Normal Conjunctiva ENT: Normal External Ears, Nose and Mouth. Neck: Full range of motion..~ No meningismus. Resp: Clear to auscultation bilaterally Cardio: Regular rate and rhythm, no murmurs Abd: Distended abdomen with positive fluid wave, diffuse tenderness to palpation without rebound or guarding Skin: No petechiae or rashes Back: No midline or flank tenderness Ext: No cyanosis, or edema Neur: Awake and alert Psych: Normal Mood and Affect Results 24 hrs Current Medications Medications (Trade) Dose Ordered Sig/Rohit Route PRN Reason Start Time Stop Time Status Last Admin Dose Admin Acetaminophen/ Hydrocodone Bitart ([place] (10/325)) 1 tab ONCE ONCE PO 08/27/17 10:00 08/27/17 10:01 DC 08/27/17 09:50 Ondansetron HCl (Zofran Odt) 4 mg ONCE STAT ODT 08/27/17 09:40 08/27/17 09:41 DC 08/27/17 09:49 Lidocaine (Xylocaine 1% (Mpf)) 5 ml STK-MED ONCE .ROUTE 08/27/17 10:56 08/27/17 10:57 DC 08/27/17 10:59 Procedures/MDM Paracentesis performed by radiology. Patient is a 62-year-old female with cirrhosis who presents for paracentesis. I doubt spontaneous bacterial peritonitis at this point. I doubt appendicitis, cholecystitis, pancreatitis, or bowel obstruction. The patient had her paracentesis performed and feels better. She will be discharged and can return for any worsening symptoms. Departure Diagnosis: Primary Impression: Ascites Ascites type: other type Qualified Code: R18.8 - Other ascites Additional Impression: Abdominal pain Abdominal location: generalized Qualified Code: R10.84 - Generalized abdominal pain Condition: Fair Patient Instructions: Ascites Additional Instructions: Llame al doctor MAANA y gus lennie ISIDRO PARA DENTRO DE 1-2 RUSSELL.Dgale a la secretaria que nosotros le instruimos hacer esta isidro.Avise o llame si jaramillo condicin se empeora antes de la isidro. Regresa aqui si peor o no mejor. NERI FABIAN MD Aug 27, 2017 13:10
== END 2017-08-27 12:14 | disposition home or self-care (01) ==
LOC: E/R 09:15
DX: R18.8 Other ascites (principal); R10.84 Generalized abdominal pain; E11.9 Type 2 diabetes mellitus without complications; Z79.4 Long term (current) use of insulin; Z79.82 Long term (current) use of aspirin
CPT/HCPCS: Z7502; Z7610

== ENCOUNTER 2017-09-08 10:05 | Inpatient (IN) | payer OTHER ==
[~2017-09-08] VITALS: Ht 157.5 cm; Wt 58.6 kg
[~2017-09-08 10:05] MED LIST changes: +MIDO10TA PO
[2017-09-08] MEDS ORDERED: morphine 2 MG INJ IV STA (12:11)
[2017-09-08] MEDS ORDERED: SOD CHLORIDE 0.9% 500 ML IV STA (12:11)
[2017-09-08] MEDS ORDERED: ONDANSETRON 4 MG INJ IV STA ×2 (12:11→15:55)
--- NOTE | 2017-09-08 12:54 | RADRPT ---
PROCEDURE: CT ABDOMEN AND PELVIS WITHOUT CONTRAST. CLINICAL INDICATION: Abdominal distension TECHNIQUE: CT scan of the abdomen and pelvis without contrast was performed on a multidetector hig h-resolution CT scanner. The patient was scanned without intravenous contrast. Coronal and sagittal reformatted images were obtained from the axial source images. Images were reviewed on a high-resol [employer] PACS workstation. The total exam CTDI equals 11.8 mGy and the total exam DLP equals 663 mGy-cm . One or more of the following dose reduction techniques were used: Automated exposure control. Adjustment of the mA and/or kV according to patient size. Use of iterative reconstruction technique. DICOM images are available COMPARISON: CT abdomen/pelvis dated February 27, 2017 FINDINGS: CT abdomen: Bilateral lower lobe atelectasis noted. Heart size is within normal limits. There is no significant pericardial effusion. There is nodular appearance of the borders of the liver. Gallbladder is contracted, containing multi ple gallstones. There is a 3.8 mm calcification adjacent to the IVC, possibly a common bile duct sto ne. The spleen is mildly enlarged. The pancreas is within normal limits. Both adrenal glands are within normal limits. Both kidneys are and normal anatomic position. No gross renal/ureteric calculi. No evidence of obstr uction hydronephrosis. The visualized GI tract demonstrates a mild to moderate hiatal hernia, also containing ascites. Larg e amount of intra-abdominal/pelvic ascites. No evidence of bowel obstruction. Stool filled loops of large bowel suggestive of constipation. There is atherosclerotic calcification of the aorta. No significant retroperitoneal lymphadenopathy. CT pelvis: The bladder is within normal limits. Uterus is unremarkable. The rectosigmoid colon demonstrates div erticulosis. No significant pelvic lymphadenopathy. The visualized osseous structures demonstrate multilevel degenerative disease of the spine IMPRESSION: 1. Nodular shrunken liver, consistent with liver cirrhosis. If there is concern for underlying liver mass, recommend follow-up contrast-enhanced CT scan following a multi phase liver protocol. 2. Contracted gallbladder, containing multiple gallstones. There is a 3.8 mm calcification adjacent to the IVC, which may represent a CBD stone. Consider follow-up MRI abdomen / MRCP. 3. Large amount of intra-abdominal/pelvic ascites. 4. No evidence of bowel obstruction. Stool filled loops of large bowel suggestive of constipation. 5. Atherosclerosis of the aorta. 6. Mild to moderate hiatal hernia also containing ascites. 7. Thickened appearance of the patino of the stomach, which may represent underlying gastritis versus collapsed stomach. RPTAT: AAPP Gurpreet Awan Physician Date Time Electronically viewed and signed by Gurpreet Awan Physician on 09/08/2017 12:54 JL/
[2017-09-08 13:14] LABS: BASOPHIL # 0.1 10^3/ul (0.0-0.1); BASOPHILS % 0.7 % (0.0-2.0); EOSINOPHILS % 0.4 % (0.0-7.0); HEMATOCRIT 29.9 % (37.0-47.0); HEMOGLOBIN 9.8 g/dl (12.0-16.0); LYMPHOCYTES # 1.3 10^3/ul (0.8-2.9); LYMPHOCYTES % 17.6 % (15.0-51.0); MEAN CORPUSCULAR HEMOGLOBIN 30.2 pg (29.0-33.0); MEAN CORPUSCULAR HGB CONC 32.8 g/dl (32.0-37.0); MEAN CORPUSCULAR VOLUME 92.3 fl (82.0-101.0); MEAN PLATELET VOLUME 8.9 fl (7.4-10.4); MONOCYTE # 0.5 10^3/ul (0.3-0.9); MONOCYTES % 6.5 % (0.0-11.0); NEUTROPHIL # 5.6 10^3/ul (1.6-7.5); NEUTROPHILS % 74.5 % (39.0-77.0); PLATELET COUNT 195 10^3/UL (140-415); RED BLOOD COUNT 3.24 10^6/ul (4.20-5.40); RED CELL DISTRIBUTION WIDTH 14.6 % (11.5-14.5); WHITE BLOOD COUNT 7.5 10^3/ul (4.8-10.8)
[2017-09-08 13:39] LABS: ALBUMIN 2.5 g/dl (3.3-4.9); ALBUMIN/GLOBULIN RATIO 0.67; BILIRUBIN,INDIRECT 0.6 mg/dl (0-1.1); BILIRUBIN,TOTAL 0.6 mg/dl (0.2-1.3); CALCIUM 8.6 mg/dl (8.4-10.2); CREATININE 0.72 mg/dl (0.44-1.00); POTASSIUM 3.1 mmol/L (3.5-5.1); TOTAL PROTEIN 6.2 g/dl (6.1-8.1)
[2017-09-08 14:03] LABS: INR 1.09; PROTIME 14.3 Sec (11.9-14.9); PT RATIO 1.1
[2017-09-08 14:04] LABS: PARTIAL THROMBOPLASTIN TIME 31.3 Sec (25.0-35.0)
--- NOTE | 2017-09-08 14:13 | ERD ---
ER Documentation Chief Complaint Chief Complaint here for paracenthesis, has ap HPI This is a 62-year-old female history of autoimmune hepatitis now with cirrhosis who presents to the emergency room with right-sided abdominal pain that is 8 out of 10. She additionally states that she needs a paracentesis. She describes multiple episodes of vomiting. No fevers or chills. The vomiting is nonbloody nonbilious, no melena. No recent travel, sick contacts, antibiotics. ROS All systems reviewed and are negative except as per history of present illness. Medications Home Meds Active Scripts Midodrine* (Midodrine*) 10 Mg Tablet, 10 MG PO TID for 14 Days, TAB Prov:NERI FABIAN MD 08/27/17 Aspirin (Aspirin) 81 Mg Chew, 81 MG PO DAILY for 30 Days, #30 TAB Prov:REI FONSECA MD 07/19/17 Reported Medications Furosemide* (Furosemide*) 40 Mg Tablet, 40 MG PO BID, TAB 07/13/17 Omeprazole* (Omeprazole*) 20 Mg Capsule.dr, 20 MG PO DAILY, #30 CAP 05/26/17 Tramadol Hcl* (Ultram*) 50 Mg Tablet, 50 MG PO Q6H Y for PAIN, TAB 05/26/17 Ondansetron Hcl* (Zofran*) 8 Mg Tab, 8 MG PO Q6H Y for NAUSEA AND OR VOMITING, TAB 05/26/17 Lactulose* (Lactulose*) 10 Gm/15 Ml Solution, 10 GM PO NEEDED, ML 05/26/17 Mycophenolate Mofetil* (Cellcept*) 500 Mg Tablet, 500 MG PO TID, #60 TAB 12/10/16 Insulin Glargine* (Lantus*) 100 Unit/Ml Soln, 10 UNIT SC QAM, #1 VIAL 12/10/16 Discontinued Scripts Midodrine* (Midodrine*) 5 Mg Tablet, 10 MG PO TID for 30 Days, #90 TAB Prov:REI FONSECA MD 07/19/17 Allergies Allergies: Coded Allergies: No Known Allergy (Unverified , 09/08/17) PMhx/Soc History of Surgery: Yes (appendectomy, 2 , frequent paracentesis) Anesthesia Reaction: No Hx Neurological Disorder: No Hx Respiratory Disorders: No Hx Cardiac Disorders: No Hx Psychiatric Problems: No Hx Miscellaneous Medical Probl: Yes (DM, DVT , autoimmune hepatitis, cirrhosis , Ascites) Hx Alcohol Use: No Hx Substance Use: No Hx Tobacco Use: No Smoking Status: Never smoker FmHx Family History: No diabetes Physical Exam Vitals Vital Signs Date Time Temp Pulse Resp B/P Pulse Ox O2 Delivery O2 Flow Rate FiO2 09/08/17 15:28 75 16 92/59 99 Room Air 09/08/17 10:08 99.0 96 18 104/66 99 Physical Exam General: Well developed, well nourished, no acute distress Head: Normocephalic, atraumatic. Eyes: Pupils equally reactive, EOM intact ENT: Moist mucous membranes Neck: Supple, no lymphadenopathy Respiratory: Lungs clear bilaterally, no distress Cardiovascular: RRR, no murmurs, rubs, or gallops Abdominal: Soft, generalized right-sided abdominal tenderness with voluntary guarding, no peritonitis. : Deferred MSK: No edema, no unilateral swelling, 5/5 strength Neurologic: Alert and oriented, moving all extremities, normal speech, no focal weakness, no cerebellar signs Skin: No rash Psych: Normal mood Result Diagram: 09/08/17 1305 09/08/17 1305 Results 24 hrs Laboratory Tests Test 09/08/17 13:05 09/08/17 15:00 White Blood Count 7.510^3/ul Red Blood Count 3.2410^6/ul Hemoglobin 9.8g/dl Hematocrit 29.9% Mean Corpuscular Volume 92.3fl Mean Corpuscular Hemoglobin 30.2pg Mean Corpuscular Hemoglobin Concent 32.8g/dl Red Cell Distribution Width 14.6% Platelet Count 16627^3/UL Mean Platelet Volume 8.9fl Neutrophils % 74.5% Lymphocytes % 17.6% Monocytes % 6.5% Eosinophils % 0.4% Basophils % 0.7% Nucleated Red Blood Cells % 0.0/100WBC Neutrophils # 5.610^3/ul Lymphocytes # 1.310^3/ul Monocytes # 0.510^3/ul Eosinophils # 0.010^3/ul Basophils # 0.110^3/ul Nucleated Red Blood Cells # 0.010^3/ul Prothrombin Time 14.3Sec Prothrombin Time Ratio 1.1 INR International Normalized Ratio 1.09 Activated Partial Thromboplast Time 31.3Sec Sodium Level 131mmol/L Potassium Level 3.1mmol/L Chloride Level 88mmol/L Carbon Dioxide Level 37mmol/L Anion Gap 9 Blood Urea Nitrogen 10mg/dl Creatinine 0.72mg/dl Glucose Level 160mg/dl Calcium Level 8.6mg/dl Total Bilirubin 0.6mg/dl Direct Bilirubin 0.00mg/dl Indirect Bilirubin 0.6mg/dl Aspartate Amino Transf (AST/SGOT) 31IU/L Alanine Aminotransferase (ALT/SGPT) 29IU/L Alkaline Phosphatase 117IU/L Total Protein 6.2g/dl Albumin 2.5g/dl Globulin 3.70g/dl Albumin/Globulin Ratio 0.67 Lipase 98U/L Body Fluid Type ASCITES Body Fluid Volume 6.5ml Body Fluid Color YELLOW Body Fluid Appearance SLIGHTLY HAZY Body Fluid WBC 101/cmm Body Fluid RBC (Auto) 0/uL Body Fluid Polynuclear WBCs (%) 9.0% Body Fluid Mononuclear Cells % Auto 91.0% Current Medications Medications (Trade) Dose Ordered Sig/Rohit Route PRN Reason Start Time Stop Time Status Last Admin Dose Admin Sodium Chloride (NS) 500 ml @ 500 mls/hr Q1H STAT IV 09/08/17 12:11 09/08/17 13:10 DC 09/08/17 13:07 Morphine Sulfate (morphine) 2 mg ONCE STAT IV 09/08/17 12:11 09/08/17 12:14 DC 09/08/17 13:07 Ondansetron HCl (Zofran Inj) 4 mg ONCE STAT IV 09/08/17 12:11 09/08/17 12:14 DC 09/08/17 13:08 Lidocaine (Xylocaine 1% (Mpf)) 5 ml STK-MED ONCE .ROUTE 09/08/17 15:05 09/08/17 15:06 DC IV Flush (NS 3 ml) 3 ml PER PROTOCOL IV 09/08/17 16:00 Ondansetron HCl (Zofran Inj) 4 mg Q6H PRN IV NAUSEA AND/OR VOMITING 09/08/17 16:00 Acetaminophen (Tylenol Tab) 650 mg Q6H PRN PO PAIN LEVEL 1-3 OR FEVER 09/08/17 16:00 Acetaminophen/ Hydrocodone Bitart (Effort (5/325)) 1 tab Q6H PRN PO MODERATE PAIN LEVEL 4-6 09/08/17 16:00 Morphine Sulfate (morphine) 2 mg Q4H PRN IV SEVERE PAIN LEVEL 7-10 09/08/17 16:00 Docusate Sodium (Colace) 100 mg Q12H PRN PO CONSTIPATION 09/08/17 16:00 Magnesium Hydroxide (Milk Of Mag) 30 ml DAILY PRN PO CONSTIPATION 09/08/17 16:00 Pantoprazole 40 mg 40 mg DAILY@06 IV 09/09/17 06:00 Piperacillin Sod/ Tazobactam Sod (Zosyn 3.375gm/ 50 ml (Pmx)) 50 ml @ 100 mls/hr Q8 ONCE IV 09/08/17 16:00 09/08/17 16:29 DC 09/08/17 17:21 Insulin Glargine (Lantus) 10 unit QAM SC 09/09/17 09:00 Lactulose (Enulose) 10 gm Q12 PRN PO constipation 09/08/17 16:00 Midodrine (Proamatine) 10 mg TID@06,12,18 PO 09/08/17 18:00 Miscellaneous Information (* Miscellaneous Pharmacy Order) Discontinue current oral sulfonylur... ONCE ONCE XX 09/08/17 16:00 09/08/17 16:01 DC Diagnostic Test (Pha) (Accu-Chek) 1 ea 02 XX 09/09/17 02:00 Miscellaneous Information (* Miscellaneous Pharmacy Order) HYPOGLYCEMIA PROTOCOL w... ONCE ONCE XX 09/08/17 16:00 09/08/17 16:01 DC Insulin Aspart (Novolog Insulin Pen) NOVOLOG *MILD* ALGORITHM WITH MEALS BEDTIME MS 09/08/17 18:00 Miscellaneous Information (* Miscellaneous Pharmacy Order) Discontinue all previ... ONCE ONCE XX 09/08/17 16:00 09/08/17 16:01 DC Miscellaneous Information 1 ea NOTE XX 09/08/17 16:00 Glucose (Glutose) 15 gm Q15M PRN PO DECREASED GLUCOSE 09/08/17 16:00 Glucose (Glutose) 22.5 gm Q15M PRN PO DECREASED GLUCOSE 09/08/17 16:00 Dextrose (D50w Syringe) 25 ml Q15M PRN IV DECREASED GLUCOSE 09/08/17 16:00 Dextrose (D50w Syringe) 50 ml Q15M PRN IV DECREASED GLUCOSE 09/08/17 16:00 Glucagon (Glucagen) 1 mg Q15M PRN IM DECREASED GLUCOSE 09/08/17 16:00 Glucose (Glutose) 15 gm Q15M PRN BUCCAL DECREASED GLUCOSE 09/08/17 16:00 Ondansetron HCl (Zofran Inj) 4 mg BRIDGE ORDER PRN IV NAUSEA AND/OR VOMITING 09/08/17 16:00 09/09/17 15:59 Acetaminophen 650 mg 650 mg ER BRIDGE PRN PO MILD PAIN/FEVER 09/08/17 16:00 09/09/17 15:59 Albumin Human (Albumin Human 25%) 50 ml @ 100 mls/hr ONCE ONCE IV 09/08/17 16:00 09/08/17 16:29 DC 09/08/17 16:53 Hydromorphone HCl (Dilaudid) 0.5 mg ONCE STAT IV 09/08/17 15:55 09/08/17 15:57 DC 09/08/17 16:01 Ondansetron HCl (Zofran Inj) 4 mg ONCE STAT IV 09/08/17 15:55 09/08/17 15:57 DC 09/08/17 16:02 Potassium Chloride (Klor-Con 20) 20 meq ONCE STAT PO 09/08/17 16:49 09/08/17 16:50 DC Procedures/MDM EKG, MONITORS, & DIAGNOSTIC IMAGING: CT abdomen and pelvis: IMPRESSION: 1. Nodular shrunken liver, consistent with liver cirrhosis. If there is concern for underlying liver mass, recommend follow-up contrast-enhanced CT scan following a multi phase liver protocol. 2. Contracted gallbladder, containing multiple gallstones. There is a 3.8 mm calcification adjacent to the IVC, which may represent a CBD stone. Consider follow-up MRI abdomen / MRCP. 3. Large amount of intra-abdominal/pelvic ascites. 4. No evidence of bowel obstruction. Stool filled loops of large bowel suggestive of constipation. 5. Atherosclerosis of the aorta. 6. Mild to moderate hiatal hernia also containing ascites. 7. Thickened appearance of the patino of the stomach, which may represent underlying gastritis versus collapsed stomach. RPTAT: AAPP LAB INTERPRETATION: No significant leukocytosis, slight hyponatremia, no evidence of hepatobiliary obstruction MEDICAL DECISION MAKING: The patient presents with abdominal pain. While the patient could have a presentation is consistent with ascites and a need for therapeutic paracentesis the patient is having localizing abdominal pain. This is prompting a broad workup including CT imaging of the abdomen and pelvis. The patient will benefit from fluid studies though I have a low pretest probability for SBP. ER COURSE: CT imaging is suggestive of a possible common bile duct stone however her laboratory testing does not suggest this. Consider malignancy as well. MRCP would be reasonable. The patient's pain is well controlled. She had a large- volume paracentesis and was slightly hypotensive, this is likely secondary to fluid shift. Albumin provided. Potassium repleted. The patient's ascites fluid Cell count does not support the diagnosis of SBP The patient will be admitted for further management. I kept the patient and/or family informed of laboratory and diagnostic imaging results throughout the emergency room course. DISPOSITION PLAN: Medical surgical admission CONSULTATION: Accepting care team and consultations: I discussed the current laboratory data, diagnostic imaging and emergency care provided. Admitting team: Dr Fonseca Admitting team indication: Insurance directed Departure Diagnosis: Primary Impression: Abdominal pain Abdominal location: generalized Qualified Code: R10.84 - Generalized abdominal pain Additional Impressions: Hypokalemia Cirrhosis Hepatic cirrhosis type: other cirrhosis Qualified Code: K74.69 - Other cirrhosis of liver Condition: Stable ANAIS BLEVINS MD Sep 08, 2017 14:13
[2017-09-08] MEDS ORDERED: LIDOCAINE 1% (MPF) 5 ML VIAL ONE (15:05)
--- NOTE | 2017-09-08 15:35 | RADRPT ---
PROCEDURE: Ultrasound guided paracentesis CLINICAL INDICATION: Ascites TECHNIQUE: The risks benefits and alternatives of the procedure were explained to the patient. In formed written consent was obtained. A time out was performed. The patient understood the risks be nefits and alternatives and wished to proceed with the procedure. COMPARISON: US ABDOMEN 08/27/2017 FINDINGS: A time out was performed. The overlying skin of the right lower quadrant of the abdomen was prepped and draped in the usual sterile fashion. Approximately 10 cc of lidocaine was injected locally for pain control. Utilizing ultrasound guidance, a 6-Chinese paracentesis catheter was placed into the peritoneal cavity without difficulty. The patient tolerated the procedure well without complication . Approximately 4850 cc of clear yellow fluid was obtained. The fluid was sent to the lab for furt her analysis. IMPRESSION: 1. Successful ultrasound-guided paracentesis. RPTAT: QQ .Jamel Patterson MD, Date Time Electronically viewed and signed by .Jamel Patterson MD, MD on 09/08/2017 15:35 .R/
[2017-09-08 15:43] LABS: FLD CLARITY SLIGHTLY HAZY; FLD COLOR YELLOW; FLD TYPE ASCITES; FLD VOLUME 6.5 ml
[2017-09-08 15:51] LABS: FLD RBC 0 /uL; FLD WBC 101 /cmm
[2017-09-08] MEDS ORDERED: HYDROmorphONE 0.5 MG/0.5 ML SYG IV STA (15:55)
[2017-09-08] MEDS ORDERED: ONDANSETRON 4 MG INJ IV PRN (16:00)
[2017-09-08] MEDS ORDERED: ALBUMIN HUMAN 25% 50 ML IV ONE (16:00)
[2017-09-08] MEDS ORDERED: NACL 0.9% 3 ML SYG IV SCH (16:00)
[2017-09-08] MEDS ORDERED: PIPER-TAZO 3.375 GM IV (PMX) 50 ML IV ONE (16:00)
[2017-09-08] MEDS ORDERED: DEXTROSE 50% 50 ML SYRINGE IV PRN ×2 (16:00)
[2017-09-08] MEDS ORDERED: morphine 2 MG INJ IV PRN (16:00)
[2017-09-08] MEDS ORDERED: GLUCAGON 1 MG INJ IM PRN (16:00)
[2017-09-08] MEDS ORDERED: LACTULOSE 30ML CUP PO PRN (16:00)
[2017-09-08] MEDS ORDERED: DOCUSATE SODIUM 100 MG CAP PO PRN (16:00)
[2017-09-08] MEDS ORDERED: MAGNESIUM HYDROXIDE 30ML CUP PO PRN (16:00)
[2017-09-08] MEDS ORDERED: GLUCOSE GEL 15 GRAM TUBE PO PRN ×2 (16:00)
[2017-09-08] MEDS ORDERED: GLUCOSE GEL 15 GRAM TUBE BUCCAL PRN (16:00)
[2017-09-08] MEDS ORDERED: ACETAMINOPHEN 325 MG TAB PO PRN ×2 (16:00)
[2017-09-08] MEDS ORDERED: POTASSIUM CHLORIDE (SR) 20 MEQ TAB PO STA (16:49)
[2017-09-08] MEDS: MIDODRINE 5 MG TAB PO SCH ×2 (18:00→18:38)
[2017-09-08 18:15] VITALS: BP 96/56; PULSE 58; RESP 18; Ht 157.5 cm; Wt 58.6 kg
--- NOTE | 2017-09-08 18:25 | HP ---
DATE OF ADMISSION: 09/08/2017 REASON FOR ADMISSION: Abdominal pain. 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 History of stroke, ascites, hepatic encephalopathy, diabetes, degenerative joint disease of the cervical spine, presented to the emerge ncy department complaining of right upper quadrant pain for the last 2 to 3 days. The patient said that she used to go to [facility] for a frequent paracentesis every 2 weeks; however, she has started coming to ER at [facility]. She also noticed increased abdominal distention and was supposed to get her paracentesis today, so she came to the ER. Upon my arrival, patient already had the paracentesis done that removed like 5 liters. Patient said that for the last 2 to 3 days, she has been having right upper quadrant pain, had 3 episodes of vomiting this morning. Denied any fevers, chills. Denies any diarrhea. Occasionally patient is feeling some dizziness. On arrival t o ED, the patient's vital signs were with a blood pressure 104/66, heart rate 96, temperature 99. W farrah count was 7.5. BMP showed potassium 3.1, BUN of 10, creatinine 0.72. Patient had a CT of the abdomen and pelvis that shows nodular shrunken liver consistent with liver cirrhosis, of concern for underlying liver marked mass. Recommend follow up contrast CT. A contracted gallbladder containin g multiple gallstones with a 3.8 mm calcification in addition to IVC which may represent a CBD stone , large amount of ascites. No evidence of bowel obstruction. Atherosclerosis of hernia. Mild to m oderate hiatal hernia, thickened appearance of the patino of the stomach which were underlying gastri tis versus collapsed stomach. The patient was given morphine and Zofran and I was called in for fur ther management. PAST MEDICAL HISTORY: 1. Autoimmune cirrhosis, followed by solar energy system installer. She is on mycophenolate. 2. History of stroke, recovered fully. 3. Diabetes. 4. History of hepatic encephalopathy. 5. Cervical disease of the spine. 6. Atherosclerosis of the aorta. 7. Degenerative joint disease of the cervical spine. ALLERGIES: NONE. PAST SURGICAL HISTORY: Appendectomy, carpal tunnel surgery, C-sections. MEDICATIONS AT HOME: 1. Mycophenolate 500 t.i.d. 2. Lasix 40 b.i.d. 3. Midodrine 10 t.i.d. 4. Lantus 15. 5. Prilosec 20. SOCIAL HISTORY: No history of smoking, alcohol or any drug use. Currently lives with her daughter in . No history of any liver disease in the family. REVIEW OF SYSTEMS: The patient has right upper quadrant pain associated with episodes of nausea, vo miting. No diarrhea, no fevers and chills. Occasionally has nosebleeds. Sometimes has dizziness. Sometimes has cough. Denies any hematemesis, any melena, any bright red blood per rectum. Denies any focal neurological deficit. PHYSICAL EXAMINATION: VITAL SIGNS: Blood pressure 104/66, respiratory rate 18, pulse 96, patient's temperature 99. GENERAL: The patient is awake, alert, oriented x4. Has a mask on face. HEENT: No scleral icterus. Oral mucosa moist. NECK: Supple. No JVD. HEART: Regular rate and rhythm. No murmur, rub or gallop. LUNGS: Some decreased breath sounds bilaterally. ABDOMEN: Status post paracentesis. Soft. Tenderness present in the right upper quadrant. EXTREMITIES: 2+ pitting edema. DIAGNOSTIC DATA: Shows sodium 131, potassium 3.1, chloride 88, bicarbonate of 37, BUN of 10, creati nine of 0.72. White count of 7.5, hemoglobin 9.8, platelet count 195. IMAGING: CT of the abdomen and pelvis shows currently with liver cirrhosis, a contracted gall bladder containing multiple gallstones, 3.8 mm calcification in addition to IVC material and CBD sto ne, large amount of ascites. No evidence of bowel obstruction. Atherosclerosis of aorta. Mild to moderate hiatal hernia. Thickened appearance of patnio of the stomach which may represent underlying gastritis versus collapsed stomach. ASSESSMENT AND PLAN: A 62-year-old woman presenting with: 1. Recurrent ascites, status post paracentesis with removal of 5 liters. 2. Rule out choledocholithiasis. 3. Gallstones. 4. Autoimmune cirrhosis, currently on immunosuppressant. 5. Diabetes. 6. History of hypertension, currently on midodrine. 7. GERD. 8. Degenerative disease of the cervical spine. 9. Hiatal hernia. PLAN: At this period of time, the patient will be admitted to med/surg unit. The patient is alread y status post paracentesis. We will get an MRCP. We will start the patient on IV. We will start t he patient on IV Zosyn. We will call GI consultation with Dr. Josue and surgery consultation with Dr. Escobar. Rest of the treatment will depend on the patient's hospitalization course. Dictated By: REI MENCHACA/REI Conf#: [id number] DID#: [id number] CC: REI FONSECA;*EndCC*
[2017-09-08] MEDS: INSULIN ASPART [NOVOLOG] 3 ML PEN SC SCH ×2 (18:39→21:00)
[2017-09-08 20:00] VITALS: BP 93/56; RESP 17
[2017-09-08] MEDS ORDERED: MIDODRINE 5 MG TAB PO ONE ×2 (23:00→23:30)
[2017-09-08] MEDS: DEXTROSE 5%-0.45% NACL 1,000 ML IV SCH (23:07)
[2017-09-09] VITALS (7 sets, daily range): BP systolic 85–99; BP diastolic 50–59; PULSE 63–72; RESP 16–19
[2017-09-09] MEDS: Insulin NOVOLOG SS MILD Algorithm (NPO/TPN/ENTERAL FEEDS) SC SCH ×6 (01:00→21:00)
[2017-09-09] MEDS ORDERED: INSULIN ASPART [NOVOLOG] 3 ML PEN SC SCH (01:00)
[2017-09-09] MEDS ORDERED: ACCU-CHEK XX SCH (02:00)
[2017-09-09] MEDS: PANTOPRAZOLE 40 MG INJ IV SCH (05:12)
[2017-09-09] MEDS: MIDODRINE 5 MG TAB PO SCH ×3 (06:34→18:59)
[2017-09-09 06:39] LABS: BASOPHILS % 0.6 % (0.0-2.0); EOSINOPHILS # 0.1 10^3/ul (0.0-0.5); EOSINOPHILS % 0.9 % (0.0-7.0); HEMATOCRIT 30.3 % (37.0-47.0); LYMPHOCYTES # 1.3 10^3/ul (0.8-2.9); LYMPHOCYTES % 18.5 % (15.0-51.0); MEAN CORPUSCULAR HEMOGLOBIN 30.7 pg (29.0-33.0); MEAN CORPUSCULAR VOLUME 92.9 fl (82.0-101.0); MEAN PLATELET VOLUME 9.5 fl (7.4-10.4); MONOCYTE # 0.5 10^3/ul (0.3-0.9); MONOCYTES % 7.1 % (0.0-11.0); NEUTROPHILS % 72.6 % (39.0-77.0); PLATELET COUNT 227 10^3/UL (140-415); RED BLOOD COUNT 3.26 10^6/ul (4.20-5.40); RED CELL DISTRIBUTION WIDTH 14.6 % (11.5-14.5); WHITE BLOOD COUNT 6.9 10^3/ul (4.8-10.8)
[2017-09-09 07:32] LABS: CALCIUM 8.4 mg/dl (8.4-10.2); CREATININE 0.71 mg/dl (0.44-1.00); PHOSPHORUS 3.6 mg/dl (2.5-4.9); POTASSIUM 3.6 mmol/L (3.5-5.1)
[2017-09-09 07:33] LABS: BILIRUBIN,INDIRECT 0.5 mg/dl (0-1.1); BILIRUBIN,TOTAL 0.5 mg/dl (0.2-1.3); MAGNESIUM 1.7 mg/dl (1.7-2.5)
[2017-09-09 08:10] LABS: ALBUMIN 2.1 g/dl (3.3-4.9); ALBUMIN/GLOBULIN RATIO 0.7; TOTAL PROTEIN 5.1 g/dl (6.1-8.1)
[2017-09-09] MEDS: INSULIN GLARGINE [LANtus] 3 ML PEN SC SCH (09:00)
--- NOTE | 2017-09-09 12:06 | CONS ---
Date/Time of Note Date/Time of Note DATE: 09/09/17 TIME: 11:31 Assessment/Plan Assessment/Plan Chief Complaint/Hosp Course 1. Symptomatic cholelithiasis: Ct: There is a 3.8 mm calcification adjacent to the IVC, possibly a common bile duct stone, MRCP: no biliary dilatation or choledocholithiasis -pain management -lap rola likely tomorrow 2. Abdominal pain: 2/2 above -as above 3. Liver cirrhosis with significant ascites: s/p paracentesis w greater than 4L out -medical management for ascitic fluid management -gi specialist follow up -per gi 4. Hiatal hernia: asymptomatic -monitor 5. Normocytic normochromic anemia: no acute bleed noted -monitor -transfuse as needed 6. Electrolyte imbalance -optimize lytes 7. Hypoalbuminemia: multifactorial -optimize nutritionb -supportive Thank you. Patient seen and examined in collaboration with Dr. Shilo Escobar. Problems: Consultation Date/Type/Reason Admit Date/Time Sep 08, 2017 at 15:51 Date of Consultation: Sep 09, 2017 Type of Consultation: surgical Reason for Consultation cholelithiasis Referring Provider: REI FONSECA MD Hx of Present Illness Eloise Youngblood is a 62-year-old woman with multiple comorbidities who presented to the emergency department complaining of right upper quadrant pain for a few days. Pain is localized to the right upper quadrant strong and constant. Associated symptoms include nausea with vomiting non-bloody emesis. Pain is aggravated with eating. She denies fevers, chills, congested cough, melena, hematochezia, chest pain, palpitations. CT abdomen shows a contracted gallbladder containing multiple gallstones with a 3.8 mm calcification in addition to IVC which may represent a CBD stone, large amount of ascites. She reports having had history of gallstones in the past. General surgery was asked to evaluate. Constitutional: No disoriented Eyes: No visual change ENT: No congestion Respiratory: No cough, No shortness of breath Cardiovascular: palpitations, No chest pain Gastrointestinal: other (as above) Genitourinary: No dysuria, No hematuria Musculoskeletal: No back pain Skin: No bruising, No pruritis Neurologic: No dizziness, No focal-weakness Psychological: No anxiety Past Medical History 1. Autoimmune cirrhosis, followed by outside sales inspector. She is on mycophenolate. 2. History of stroke, recovered fully. 3. Diabetes. 4. History of hepatic encephalopathy. 5. Cervical disease of the spine. 6. Atherosclerosis of the aorta. 7. Degenerative joint disease of the cervical spine. Past Surgical History c section x 2 open appendectomy Past Surgical Hx: endoscopy, other Family History Significant Family History: no pertinent family hx Social History Alcohol Use: none Smoking Status: Never smoker Drug Use: none Exam/Review of Systems Vital Signs Vitals Vital Signs Date Time Temp Pulse Resp B/P Pulse Ox O2 Delivery O2 Flow Rate FiO2 09/09/17 10:25 72 90/55 09/09/17 07:45 97.3 16 97 09/08/17 18:15 Room Air Intake and Output 09/08/17 09/08/17 09/09/17 15:00 23:00 07:00 Intake Total 240 ml Balance 240 ml Exam Constitutional: alert, oriented Psych: nl mood/affect Head: atraumatic, normocephalic Eyes: nl lids, nl sclera ENMT: mucosa pink and moist, nl nasal mucosa & septum Neck: non-tender, supple Respiratory: clear to auscultation, normal air movement Cardiovascular: nl pulses, regular rate and rhythm Gastrointestinal: non-tender, soft, tender (RUQ +iverson's), No ascites (s/p paracentesis ), No distended Musculoskeletal: nl extremities to inspection, nl gait and stance Extremities: normal pulses Neurological: nl mental status, nl speech, nl strength Skin: nl turgor, No rash or lesions Results Result Diagram: 09/09/1718 09/09/17 0518 Results 24 hrs Laboratory Tests Test 09/08/17 13:05 09/08/17 15:00 09/08/17 18:07 09/08/17 22:32 White Blood Count 7.5 # Red Blood Count 3.24 L Hemoglobin 9.8 L Hematocrit 29.9 L Mean Corpuscular Volume 92.3 Mean Corpuscular Hemoglobin 30.2 Mean Corpuscular Hemoglobin Concent 32.8 Red Cell Distribution Width 14.6 H Platelet Count 195 Mean Platelet Volume 8.9 Neutrophils % 74.5 Lymphocytes % 17.6 Monocytes % 6.5 Eosinophils % 0.4 Basophils % 0.7 Nucleated Red Blood Cells % 0.0 Neutrophils # 5.6 Lymphocytes # 1.3 Monocytes # 0.5 Eosinophils # 0.0 Basophils # 0.1 Nucleated Red Blood Cells # 0.0 Prothrombin Time 14.3 Prothrombin Time Ratio 1.1 INR International Normalized Ratio 1.09 Activated Partial Thromboplast Time 31.3 Sodium Level 131 L Potassium Level 3.1 L Chloride Level 88 L Carbon Dioxide Level 37 H Anion Gap 9 Blood Urea Nitrogen 10 Creatinine 0.72 Glucose Level 160 Calcium Level 8.6 Total Bilirubin 0.6 Direct Bilirubin 0.00 Indirect Bilirubin 0.6 Aspartate Amino Transf (AST/SGOT) 31 Alanine Aminotransferase (ALT/SGPT) 29 Alkaline Phosphatase 117 Total Protein 6.2 Albumin 2.5 L Globulin 3.70 H Albumin/Globulin Ratio 0.67 Lipase 98 Body Fluid Type ASCITES Body Fluid Volume 6.5 Body Fluid Color YELLOW Body Fluid Appearance SLIGHTLY HAZY Body Fluid WBC 101 Body Fluid RBC (Auto) 0 Body Fluid Polynuclear WBCs (%) 9.0 Body Fluid Mononuclear Cells % Auto 91.0 Bedside Glucose 150 101 Test 09/09/17 01:28 09/09/17 05:08 09/09/17 05:18 09/09/17 08:28 Bedside Glucose 112 99 92 White Blood Count 6.9 Red Blood Count 3.26 L Hemoglobin 10.0 L Hematocrit 30.3 L Mean Corpuscular Volume 92.9 Mean Corpuscular Hemoglobin 30.7 Mean Corpuscular Hemoglobin Concent 33.0 Red Cell Distribution Width 14.6 H Platelet Count 227 Mean Platelet Volume 9.5 Neutrophils % 72.6 Lymphocytes % 18.5 Monocytes % 7.1 Eosinophils % 0.9 Basophils % 0.6 Nucleated Red Blood Cells % 0.0 Neutrophils # 5.0 Lymphocytes # 1.3 Monocytes # 0.5 Eosinophils # 0.1 Basophils # 0.0 Nucleated Red Blood Cells # 0.0 Sodium Level 135 Potassium Level 3.6 Chloride Level 94 L Carbon Dioxide Level 34 H Anion Gap 11 Blood Urea Nitrogen 7 Creatinine 0.71 Glucose Level 91 # Calcium Level 8.4 Phosphorus Level 3.6 Magnesium Level 1.7 Total Bilirubin 0.5 Direct Bilirubin 0.00 Indirect Bilirubin 0.5 Aspartate Amino Transf (AST/SGOT) 30 Alanine Aminotransferase (ALT/SGPT) 28 Alkaline Phosphatase 80 Total Protein 5.1 #L Albumin 2.1 L Globulin 3.00 Albumin/Globulin Ratio 0.70 Medications Medications Current Medications Ondansetron HCl (Zofran Inj) 4 mg Q6H PRN IV NAUSEA AND/OR VOMITING; Start at 16:00 Acetaminophen (Tylenol Tab) 650 mg Q6H PRN PO PAIN LEVEL 1-3 OR FEVER; Start 09/08/17 at 16:00 Acetaminophen/ Hydrocodone Bitart ([place]aurice (5/325)) 1 tab Q6H PRN PO MODERATE PAIN LEVEL 4-6; Start 09/08/17 at 16:00 Morphine Sulfate (morphine) 2 mg Q4H PRN IV SEVERE PAIN LEVEL 7-10; Start at 16:00 Docusate Sodium (Colace) 100 mg Q12H PRN PO CONSTIPATION; Start 09/08/17 at 16 :00 Magnesium Hydroxide (Milk Of Mag) 30 ml DAILY PRN PO CONSTIPATION; Start 09/08 at 16:00 Pantoprazole (Protonix Iv) 40 mg DAILY@06 IV Last administered on 09/09/17 05 :12; Admin Dose 40 MG; Start 09/09/17 at 06:00 Insulin Glargine (Lantus) 10 unit QAM SC ; Start 09/09/17 at 09:00 Lactulose (Enulose) 10 gm Q12 PRN PO constipation; Start 09/08/17 at 16:00 Midodrine (Proamatine) 10 mg TID@06,12,18 PO Last administered on 09/09/17 06 :34; Admin Dose 10 MG; Start 09/08/17 at 18:00 Miscellaneous Information 1 ea NOTE XX ; Start 09/08/17 at 16:00 Glucose (Glutose) 15 gm Q15M PRN PO DECREASED GLUCOSE; Start 09/08/17 at 16:00 Glucose (Glutose) 22.5 gm Q15M PRN PO DECREASED GLUCOSE; Start 09/08/17 at 16: 00 Dextrose (D50w Syringe) 25 ml Q15M PRN IV DECREASED GLUCOSE; Start 09/08/17 at 16:00 Dextrose (D50w Syringe) 50 ml Q15M PRN IV DECREASED GLUCOSE; Start 09/08/17 at 16:00 Glucagon (Glucagen) 1 mg Q15M PRN IM DECREASED GLUCOSE; Start 09/08/17 at 16: 00 Glucose 15 gm 15 gm Q15M PRN BUCCAL DECREASED GLUCOSE; Start 09/08/17 at 16:00 Dextrose/Sodium Chloride (D5-1/2ns) 1,000 ml @ 40 mls/hr Q24H IV Last administered on 09/08/17t 23:07; Admin Dose 40 MLS/HR; Start 09/08/17 at 23:00 Insulin Aspart (Novolog Insulin Pen) (Adult SC Insulin - Mild Algorithm)... Q4 SC ; Start 09/09/17 at 01:00 JOAO MORRIS NP Sep 09, 2017 11:43
--- NOTE | 2017-09-09 16:50 | RADRPT ---
PROCEDURE: MRCP. CLINICAL INDICATION: Abdominal pain and swelling. TECHNIQUE: MRCP was performed. Patient was examined without contrast. 3-D coronal rotating MIP i mages of the biliary tree are available for review. DICOM images are available. COMPARISON: US ABDOMEN 09/08/2017; CT 09/08/2017; MR 07/15/2017 FINDINGS: The gallbladder is partially contracted and filled with gallstones. No gallbladder wall thickening o r pericholecystic inflammation is identified. There is no intra or extrahepatic biliary dilatation. No evidence of common duct stone, stricture or mass lesion is seen. Pancreatic duct is normal in sharon iber. The liver demonstrates severe cirrhosis. Pancreas, spleen, adrenal glands and kidneys are unremarkab le. No obstructive uropathy is identified. Moderate hiatal hernia is noted. The stomach is otherwise grossly unremarkable. Moderate to large amount of ascites is present. No bowel obstruction or evidence of abscess is ident ified. The surrounding osseous structures are remarkable for degenerative enthesopathy of the spine. IMPRESSION: 1. Gallbladder is partially contracted and contains numerous gallstones. No evidence of cholecystit is is identified. 2. No biliary dilatation or evidence of choledocholithiasis is seen. 3. The liver is severely cirrhotic. Moderate to large amount of upper abdominal ascites is present. 4. Moderate hiatal hernia is noted. RPTAT: QQ .Jamel Patterson MD, Date Time Electronically viewed and signed by .Jamel Patterson MD, on 09/09/2017 07:14 .R/
--- NOTE | 2017-09-09 17:20 | PN ---
Date/Time of Note Date/Time of Note DATE: 09/09/17 TIME: 17:16 Assessment/Plan VTE Prophylaxis VTE Prophylaxis Intervention: contraindicated Assessment/Plan Chief Complaint/Hosp Course 62 y/o with # Abdominal pain due to gall stones, MRCP neg for Choledocholithiasis # Recurrent ascites, status post paracentesis with removal of 5 liters. 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 #. Diabetes.. # GERD. # Degenerative disease of the cervical spine. # Hiatal hernia. Recs - Cholecystectomy tmw - NPO post MN - mrcp negative - Pain control - on rocephin/flagyl - restart midodrine - hold cellcept due to infection - labs tmw Problems: Subjective 24 Hr Interval Summary Free Text/Dictation Still RUQ pain, some nausea Exam/Review of Systems Vital Signs Vitals Vital Signs Date Time Temp Pulse Resp B/P Pulse Ox O2 Delivery O2 Flow Rate FiO2 09/09/17 14:16 98.3 74 16 99/57 97 09/08/17 18:15 Room Air Intake and Output 09/08/17 09/08/17 09/09/17 15:00 23:00 07:00 Intake Total 240 ml Balance 240 ml Exam ENERAL: The patient is awake, alert, oriented x4. Has a mask on face. HEENT: No scleral icterus. Oral mucosa moist. NECK: Supple. No JVD. HEART: Regular rate and rhythm. No murmur, rub or gallop. LUNGS: Some decreased breath sounds bilaterally. ABDOMEN: Status post paracentesis. Soft. Tenderness present in the right upper quadrant. EXTREMITIES: 2+ pitting edema. Results Result Diagram: 09/09/1718 09/09/1718 Results 24 hrs Laboratory Tests Test 09/08/17 18:07 09/08/17 22:32 09/09/17 01:28 09/09/17 05:08 Bedside Glucose 150 101 112 99 Test 09/09/17 05:18 09/09/17 08:28 09/09/17 12:13 White Blood Count 6.9 Red Blood Count 3.26 L Hemoglobin 10.0 L Hematocrit 30.3 L Mean Corpuscular Volume 92.9 Mean Corpuscular Hemoglobin 30.7 Mean Corpuscular Hemoglobin Concent 33.0 Red Cell Distribution Width 14.6 H Platelet Count 227 Mean Platelet Volume 9.5 Neutrophils % 72.6 Lymphocytes % 18.5 Monocytes % 7.1 Eosinophils % 0.9 Basophils % 0.6 Nucleated Red Blood Cells % 0.0 Neutrophils # 5.0 Lymphocytes # 1.3 Monocytes # 0.5 Eosinophils # 0.1 Basophils # 0.0 Nucleated Red Blood Cells # 0.0 Sodium Level 135 Potassium Level 3.6 Chloride Level 94 L Carbon Dioxide Level 34 H Anion Gap 11 Blood Urea Nitrogen 7 Creatinine 0.71 Glucose Level 91 # Calcium Level 8.4 Phosphorus Level 3.6 Magnesium Level 1.7 Total Bilirubin 0.5 Direct Bilirubin 0.00 Indirect Bilirubin 0.5 Aspartate Amino Transf (AST/SGOT) 30 Alanine Aminotransferase (ALT/SGPT) 28 Alkaline Phosphatase 80 Total Protein 5.1 #L Albumin 2.1 L Globulin 3.00 Albumin/Globulin Ratio 0.70 Bedside Glucose 92 93 Medications Medications Current Medications Ondansetron HCl (Zofran Inj) 4 mg Q6H PRN IV NAUSEA AND/OR VOMITING; Start at 16:00 Acetaminophen (Tylenol Tab) 650 mg Q6H PRN PO PAIN LEVEL 1-3 OR FEVER; Start 09/08/17 at 16:00 Acetaminophen/ Hydrocodone Bitart ([place] (5/325)) 1 tab Q6H PRN PO MODERATE PAIN LEVEL 4-6; Start 09/08/17 at 16:00 Morphine Sulfate (morphine) 2 mg Q4H PRN IV SEVERE PAIN LEVEL 7-10; Start at 16:00 Docusate Sodium (Colace) 100 mg Q12H PRN PO CONSTIPATION; Start 09/08/17 at 16 :00 Magnesium Hydroxide (Milk Of Mag) 30 ml DAILY PRN PO CONSTIPATION; Start 09/08 at 16:00 Pantoprazole (Protonix Iv) 40 mg DAILY@06 IV Last administered on 09/09/17 05 :12; Admin Dose 40 MG; Start 09/09/17 at 06:00 Insulin Glargine (Lantus) 10 unit QAM SC ; Start 09/09/17 at 09:00 Lactulose (Enulose) 10 gm Q12 PRN PO constipation; Start 09/08/17 at 16:00 Midodrine (Proamatine) 10 mg TID@06,12,18 PO Last administered on 09/09/17 06 :34; Admin Dose 10 MG; Start 09/08/17 at 18:00 Miscellaneous Information 1 ea NOTE XX ; Start 09/08/17 at 16:00 Glucose (Glutose) 15 gm Q15M PRN PO DECREASED GLUCOSE; Start 09/08/17 at 16:00 Glucose (Glutose) 22.5 gm Q15M PRN PO DECREASED GLUCOSE; Start 09/08/17 at 16: 00 Dextrose (D50w Syringe) 25 ml Q15M PRN IV DECREASED GLUCOSE; Start 09/08/17 at 16:00 Dextrose (D50w Syringe) 50 ml Q15M PRN IV DECREASED GLUCOSE; Start 09/08/17 at 16:00 Glucagon (Glucagen) 1 mg Q15M PRN IM DECREASED GLUCOSE; Start 09/08/17 at 16: 00 Glucose 15 gm 15 gm Q15M PRN BUCCAL DECREASED GLUCOSE; Start 09/08/17 at 16:00 Dextrose/Sodium Chloride (D5-1/2ns) 1,000 ml @ 40 mls/hr Q24H IV Last administered on 09/08/17 23:07; Admin Dose 40 MLS/HR; Start 09/08/17 at 23:00 Insulin Aspart (Adult SC Insulin - Mild Algorithm)... Q4 SC ; Start 09/09/17 at 01:00 Ceftriaxone Sodium 50 ml @ 100 mls/hr Q24H IVPB ; Start 09/09/17 at 17:30; Status UNV Metronidazole 100 ml @ 100 mls/hr Q8 IVPB ; Start 09/09/17 at 17:30; Status UNV Magnesium Sulfate (Magnesium Sulfate 2 Gm/50 ml) 50 ml @ 25 mls/hr ONCE ONCE IVPB ; Start 09/09/17 at 17:30; Stop 09/09/17 at 19:29; Status UNV Midodrine (Proamatine) 10 mg TID@,,17 PO ; Start 09/10/17 at 09:00; Status UNV REI FONSECA MD Sep 09, 2017 17:20
[2017-09-09] MEDS ORDERED: traMADol 50 MG TAB PO PRN (17:30)
[2017-09-09] MEDS: CEFTRIAXONE 1 GM/50 ML (PMX) 50 ML IVPB SCH (17:44)
[2017-09-09] MEDS ORDERED: MAGNESIUM SULFATE 2 GM/50 ML 50 ML IVPB ONE (18:30)
[2017-09-09] MEDS: metroNIDAZOLE 500 MG/NS (PMX) 100 ML IVPB SCH ×2 (18:59→23:43)
--- NOTE | 2017-09-09 23:49 | RADRPT ---
PROCEDURE: XR Chest. CLINICAL INDICATION: Preop TECHNIQUE: Single AP portable chest. COMPARISON: No prior Chest x-ray FINDINGS: The cardiomediastinal silhouette is within normal limits of size. Atherosclerotic calcification of t he aorta. The lungs are clear without pleural effusion or focal consolidation. No pneumothorax. The osseous structures and soft tissues are unremarkable. IMPRESSION: 1. No evidence for active cardiopulmonary disease. RPTAT:AAJJ Physician Jenise Date Time Electronically viewed and signed by Physician Jenise on 09/09/2017 23:49 LATESHA/
[2017-09-10] MEDS: Insulin NOVOLOG SS MILD Algorithm (NPO/TPN/ENTERAL FEEDS) SC SCH ×4 (01:00→12:17)
[2017-09-10] MEDS: DEXTROSE 5%-0.45% NACL 1,000 ML IV SCH ×2 (01:02→17:50)
[2017-09-10] MEDS: ONDANSETRON 4 MG INJ IV PRN (01:07)
[2017-09-10 02:08] VITALS: BP 90/54; RESP 16
[2017-09-10] MEDS: PANTOPRAZOLE 40 MG INJ IV SCH (05:05)
[2017-09-10] MEDS: metroNIDAZOLE 500 MG/NS (PMX) 100 ML IVPB SCH ×3 (05:05→21:32)
[2017-09-10 06:32] LABS: BASOPHIL # 0.1 10^3/ul (0.0-0.1); BASOPHILS % 0.9 % (0.0-2.0); EOSINOPHILS # 0.1 10^3/ul (0.0-0.5); EOSINOPHILS % 1.7 % (0.0-7.0); HEMATOCRIT 32.2 % (37.0-47.0); HEMOGLOBIN 10.5 g/dl (12.0-16.0); LYMPHOCYTES # 1.1 10^3/ul (0.8-2.9); LYMPHOCYTES % 20.7 % (15.0-51.0); MEAN CORPUSCULAR HEMOGLOBIN 30.3 pg (29.0-33.0); MEAN CORPUSCULAR HGB CONC 32.6 g/dl (32.0-37.0); MEAN CORPUSCULAR VOLUME 93.1 fl (82.0-101.0); MEAN PLATELET VOLUME 9.1 fl (7.4-10.4); MONOCYTE # 0.4 10^3/ul (0.3-0.9); MONOCYTES % 8.2 % (0.0-11.0); NEUTROPHIL # 3.7 10^3/ul (1.6-7.5); NEUTROPHILS % 68.3 % (39.0-77.0); PLATELET COUNT 224 10^3/UL (140-415); RED BLOOD COUNT 3.46 10^6/ul (4.20-5.40); RED CELL DISTRIBUTION WIDTH 14.9 % (11.5-14.5); WHITE BLOOD COUNT 5.4 10^3/ul (4.8-10.8)
[2017-09-10 06:52] LABS: PHOSPHORUS 3.8 mg/dl (2.5-4.9)
[2017-09-10 06:53] LABS: CALCIUM 8.3 mg/dl (8.4-10.2); CREATININE 0.71 mg/dl (0.44-1.00); POTASSIUM 3.4 mmol/L (3.5-5.1)
--- NOTE | 2017-09-10 06:54 | CONS ---
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 T he patient underwent paracentesis. Five liters of fluid was removed and sent for analysis and there was no evidence of spontaneous bacterial peritonitis. GI consult was called in because of abnormal finding on CAT scan. The patient had a small stone in the bile duct. She continues to have right upper quadrant pain, no fever, no chills, no nausea, no vomiting, no GI bleeding. PAST MEDICAL HISTORY: Autoimmune pancreatitis, history of stroke, diabetes mellitus, hepatic enceph alopathy, cervical spine disease and degenerative joint disease. ALLERGIES: NONE. HOME MEDICATIONS: 1. Reviewed. She is on mycophenolate 500 mg t.i.d. 2. Lasix. 3. Midodrine. 4. Lantus. 5. ____ SOCIAL HISTORY: No smoking, no alcohol, no drug abuse. PHYSICAL EXAMINATION: GENERAL: Alert, awake, not in distress. VITAL SIGNS: Stable. HEENT: Unremarkable. NECK: Supple, no thyromegaly, no lymphadenopathy. CARDIOVASCULAR: No murmur, gallop or click. LUNGS: Clear. ABDOMEN: Soft. Mild tenderness in the right upper quadrant. Bowel sounds good. No mass upper abd omen. EXTREMITIES: No edema. CENTRAL NERVOUS SYSTEM: Grossly within normal limit. Liver function all normal. No evidence of an y abnormal LFT. Reviewed the CAT scan. MRCP was done and I got the report from the nurses who were taking care of the patient. There was no evidence of choledocholithiasis. Patient only had multip le gallstones. IMPRESSION: 1. Multiple gallstones. 2. No evidence of choledocholithiasis. 3. Autoimmune hepatitis. 4. Ascites no evidence of spontaneous bacterial peritonitis. PLAN: 1. To continue present care. If the pain is persistent, we will get a surgical consult from a symp tomatic gallstone. 2. Start the patient on low dose of diuretics for fluid overload and lactulose. Dictated By: LAURA JOHNSTON/REI Conf#: [id number] DID#: [id number] CC: REI FONSECA;*EndCC*
[2017-09-10] MEDS ORDERED: ETOMIDATE 20 MG INJ ONE (07:16)
[2017-09-10] MEDS ORDERED: LIDOCAINE 2% (SDV) 5 ML INJ ONE (07:16)
[2017-09-10] MEDS ORDERED: MIDAZOLAM 1 MG/ML 2 ML INJ ONE (07:16)
[2017-09-10] MEDS ORDERED: FENTAnyl 50 MCG/ML VIAL ONE (07:16)
[2017-09-10] MEDS ORDERED: PROPOFOL 0 ML ONE (07:16)
[2017-09-10] MEDS ORDERED: ROCURONIUM 50 MG INJ ONE (07:16)
[2017-09-10] MEDS ORDERED: BUPIVACAINE 0.25%/EPI (SDV) 30 ML INJ ONE (07:48)
[2017-09-10] MEDS ORDERED: LIDOCAINE 1% (MPF) 30 ML INJ ONE (07:48)
[2017-09-10 07:50] VITALS: BP 101/59; RESP 16
--- NOTE | 2017-09-10 08:15 | PN ---
Date/Time of Note Date/Time of Note DATE: 09/10/17 TIME: 08:04 Assessment/Plan Lines/Catheters IV C[facility] (from [facility]): Peripheral IV Assessment/Plan Chief Complaint/Hosp Course 1. Cholelithiasis (? symptomatic): Ct: There is a 3.8 mm calcification adjacent to the IVC, possibly a common bile duct stone, MRCP: no biliary dilatation or choledocholithiasis. 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 I also advised that I can not promise pain will resolve after surgery since she has significant liver disease with recurrent ascites. Patient has elected not to proceed with surgery. -pain management -diet/lifestyle optimization -dc planning per medical team 2. Liver cirrhosis (autoimmune) with significant ascites: s/p paracentesis w greater than 4L out -medical management for ascitic fluid management -gi f/u and tx 3. Abdominal pain multifactorial 2nd above -as above 4. Hiatal hernia & GERD -diet/lifestyle optimization 5. Normocytic normochromic anemia: no acute bleed noted -monitor -transfuse as needed 6. Electrolyte imbalance -optimize lytes 7. Hypoalbuminemia: multifactorial (including liver disease) -optimize nutrition -gi liver optimization -supportive 8. DM & HTN -diet/med optimization Thank you, Problems: Subjective 24 Hr Interval Summary Pain improved after paracentesis. No f/c. No cp/sob. No cough. No robbins/ dizziness/visual or neuro changes. No dysuria. Bowel function. Exam/Review of Systems Vital Signs Vitals Vital Signs Date Time Temp Pulse Resp B/P Pulse Ox O2 Delivery O2 Flow Rate FiO2 09/10/17 02:08 98.1 77 16 90/54 94 09/08/17 18:15 Room Air Intake and Output 09/09/17 09/09/17 09/10/17 15:00 23:00 07:00 Intake Total 850 ml 470 ml Balance 850 ml 470 ml Exam Free Text/Dictation Constitutional: alert, oriented Psych: nl mood/affect Head: atraumatic, normocephalic Eyes: nl lids, nl sclera ENMT: mucosa pink and moist, nl nasal mucosa & septum Neck: non-tender, supple Respiratory: clear to auscultation, normal air movement Cardiovascular: nl pulses, regular rate and rhythm Gastrointestinal: non-tender, soft, tenderness improved, No ascites (s/p paracentesis), Non distended Musculoskeletal: nl extremities to inspection, nl gait and stance Extremities: moves all 4, no edema Neurological: nl mental status, nl speech, nl strength Skin: nl turgor, No rash or lesions Lymphatics: Normal inguinal/cervical Results Result Diagram: 09/10/17 0513 09/10/17 0512 TERESA GALINDO MD Sep 10, 2017 08:15
[2017-09-10] MEDS ORDERED: MIDODRINE 5 MG TAB PO SCH (09:00)
[2017-09-10] MEDS: INSULIN GLARGINE [LANtus] 3 ML PEN SC SCH (09:00)
[2017-09-10] MEDS: MIDODRINE 5 MG TAB PO SCH ×3 (09:17→17:42)
[2017-09-10] MEDS: HYDROCODONE/APAP (5/325) TAB PO PRN ×2 (10:28→18:27)
[2017-09-10] MEDS ORDERED: POTASSIUM CHLORIDE 250 ML IVPB ONE (11:00)
--- NOTE | 2017-09-10 13:46 | PN ---
FABI OSORIO 09/10/17 1345: Date/Time of Note Date/Time of Note DATE: 09/10/17 TIME: 13:44 Assessment/Plan VTE Prophylaxis VTE Prophylaxis Intervention: ambulation Lines/Catheters IV Catheter Type (from Nrs): Peripheral IV Assessment/Plan Chief Complaint/Hosp Course # Abdominal pain due to gall stones, MRCP neg for Choledocholithiasis, pt refused cholecystectomy # Recurrent ascites, status post paracentesis with removal of 5 liters. 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 # Diabetes mellitus type II.. # GERD. # Degenerative disease of the cervical spine. # Hiatal hernia. Problems: Assessment/Plan 1. pty refused surgery 2. continue diet and previous insulin order 3. Potassium was supplemented today Subjective 24 Hr Interval Summary Constitutional: improved, no complaints Exam/Review of Systems Vital Signs Vitals Vital Signs Date Time Temp Pulse Resp B/P Pulse Ox O2 Delivery O2 Flow Rate FiO2 09/10/17 07:50 97.8 61 16 101/59 91 09/08/17 18:15 Room Air Intake and Output 09/09/17 09/09/17 09/10/17 15:00 23:00 07:00 Intake Total 850 ml 470 ml Balance 850 ml 470 ml Exam Constitutional: alert, oriented ENMT: nl external ears & nose Neck: supple Cardiovascular: regular rate and rhythm Gastrointestinal: soft Results Result Diagram: 09/10/17 0513 09/10/17 0512 Results 24 hrs Laboratory Tests Test 09/09/17 17:36 09/09/17 20:09 09/09/17 22:30 09/10/17 01:00 Bedside Glucose 95 76 75 87 Test 09/10/17 05:04 09/10/17 05:12 09/10/17 05:13 09/10/17 09:12 Bedside Glucose 80 136 Sodium Level 136 Potassium Level 3.4 L Chloride Level 97 Carbon Dioxide Level 33 H Anion Gap 9 Blood Urea Nitrogen 7 Creatinine 0.71 Glucose Level 87 Calcium Level 8.3 L White Blood Count 5.4 # Red Blood Count 3.46 L Hemoglobin 10.5 L Hematocrit 32.2 L Mean Corpuscular Volume 93.1 Mean Corpuscular Hemoglobin 30.3 Mean Corpuscular Hemoglobin Concent 32.6 Red Cell Distribution Width 14.9 H Platelet Count 224 Mean Platelet Volume 9.1 Neutrophils % 68.3 Lymphocytes % 20.7 Monocytes % 8.2 Eosinophils % 1.7 Basophils % 0.9 Nucleated Red Blood Cells % 0.0 Neutrophils # 3.7 Lymphocytes # 1.1 Monocytes # 0.4 Eosinophils # 0.1 Basophils # 0.1 Nucleated Red Blood Cells # 0.0 Phosphorus Level 3.8 Magnesium Level 2.0 Test 09/10/17 12:15 Bedside Glucose 183 Medications Medications Current Medications Ondansetron HCl (Zofran Inj) 4 mg Q6H PRN IV NAUSEA AND/OR VOMITING Last administered on 09/10/17 01:07; Admin Dose 4 MG; Start 09/08/17 at 16:00 Acetaminophen (Tylenol Tab) 650 mg Q6H PRN PO PAIN LEVEL 1-3 OR FEVER; Start 09/08/17 at 16:00 Acetaminophen/ Hydrocodone Bitart ([place] (5/325)) 1 tab Q6H PRN PO MODERATE PAIN LEVEL 4-6 Last administered on 09/10/17 10:28; Admin Dose 1 TAB; Start 09/08/17 at 16:00 Morphine Sulfate (morphine) 2 mg Q4H PRN IV SEVERE PAIN LEVEL 7-10 Last administered on 09/09/17 17:44; Admin Dose 2 MG; Start 09/08/17 at 16:00 Docusate Sodium (Colace) 100 mg Q12H PRN PO CONSTIPATION; Start 09/08/17 at 16 :00 Magnesium Hydroxide (Milk Of Mag) 30 ml DAILY PRN PO CONSTIPATION; Start 09/08 at 16:00 Pantoprazole (Protonix Iv) 40 mg DAILY@06 IV Last administered on 09/10/17 05 :05; Admin Dose 40 MG; Start 09/09/17 at 06:00 Insulin Glargine (Lantus) 10 unit QAM SC ; Start 09/09/17 at 09:00 Lactulose (Enulose) 10 gm Q12 PRN PO constipation; Start 09/08/17 at 16:00 Miscellaneous Information 1 ea NOTE XX ; Start 09/08/17 at 16:00 Glucose (Glutose) 15 gm Q15M PRN PO DECREASED GLUCOSE; Start 09/08/17 at 16:00 Glucose (Glutose) 22.5 gm Q15M PRN PO DECREASED GLUCOSE; Start 09/08/17 at 16: 00 Dextrose (D50w Syringe) 25 ml Q15M PRN IV DECREASED GLUCOSE; Start 09/08/17 at 16:00 Dextrose (D50w Syringe) 50 ml Q15M PRN IV DECREASED GLUCOSE; Start 09/08/17 at 16:00 Glucagon (Glucagen) 1 mg Q15M PRN IM DECREASED GLUCOSE; Start 09/08/17 at 16: 00 Glucose 15 gm 15 gm Q15M PRN BUCCAL DECREASED GLUCOSE; Start 09/08/17 at 16:00 Dextrose/Sodium Chloride (D5-1/2ns) 1,000 ml @ 40 mls/hr Q24H IV Last administered on 09/10/17 01:02; Admin Dose 40 MLS/HR; Start 09/08/17 at 23:00 Insulin Aspart (Adult SC Insulin - Mild Algorithm)... Q4 SC Last administered on 09/10/17 12:17; Admin Dose 2 UNIT; Start 09/09/17 at 01:00 Ceftriaxone Sodium 50 ml @ 100 mls/hr Q24H IVPB Last administered on 17:44; Admin Dose 100 MLS/HR; Start 09/09/17 at 17:30 Metronidazole (Flagyl 500 Mg (Pmx)) 100 ml @ 100 mls/hr Q8 IVPB Last administered on 09/10/17 05:05; Admin Dose 100 MLS/HR; Start 09/09/17 at 17: 30 Tramadol HCl (Ultram) 50 mg Q6H PRN PO PAIN; Start 09/09/17 at 17:30 Midodrine 10 mg 10 mg TID@09,13,17 PO Last administered on 09/10/17 09:17; Admin Dose 10 MG; Start 09/09/17 at 18:03 Potassium Chloride (KCl 40 MEQ/250 ML NS) 250 ml @ 62.5 mls/hr ONCE ONCE IVPB Last administered on 09/10/17 11:58; Admin Dose 62.5 MLS/HR; Start at 11:00; Stop 09/10/17 at 14:59 REI FONSECA MD 09/10/17 1624: Assessment/Plan Assessment/Plan Assessment/Plan advance diet, possible dc tmw Exam/Review of Systems Results Result Diagram: 09/10/17 0513 09/10/17 0512 FABI OSORIO Sep 10, 2017 13:45 REI FONSECA MD Sep 10, 2017 16:24
[2017-09-10 14:25] VITALS: BP 104/65; RESP 16
--- NOTE | 2017-09-10 15:37 | CONS ---
Date/Time of Note Date/Time of Note DATE: 09/10/17 TIME: 15:36 Assessment/Plan Assessment/Plan Additional Assessment/Plan IMPRESSION: 1. Multiple gallstones. 2. No evidence of choledocholithiasis. 3. Autoimmune hepatitis. 4. Ascites no evidence of spontaneous bacterial peritonitis. PLAN: 1. To continue present care. If the pain is persistent, we will get a surgical consult from a symptomatic gallstone. 2. Start the patient on low dose of diuretics for fluid overload and lactulose. Consultation Date/Type/Reason Admit Date/Time Sep 08, 2017 at 15:51 Initial Consult Date 09/09/17 Type of Consultation: surgical Referring Provider: REI FONSECA MD 24 HR Interval Summary Free Text/Dictation Patient continues to have right upper quadrant pain Exam/Review of Systems Vital Signs Vitals Vital Signs Date Time Temp Pulse Resp B/P Pulse Ox O2 Delivery O2 Flow Rate FiO2 09/10/17 14:25 97.7 74 16 104/65 95 09/08/17 18:15 Room Air Intake and Output 09/09/17 09/09/17 09/10/17 15:00 23:00 07:00 Intake Total 850 ml 470 ml Balance 850 ml 470 ml Exam Constitutional: alert, oriented, well developed Psych: nl mood/affect, no complaints Head: atraumatic, normocephalic Eyes: EOMI, PERRL, nl conjunctiva, nl lids, nl sclera ENMT: nl external ears & nose, nl lips & teeth, nl nasal mucosa & septum Neck: non-tender, supple Respiratory: clear to auscultation, normal air movement Cardiovascular: nl pulses, regular rate and rhythm Gastrointestinal: nl liver, spleen, non-tender, soft Musculoskeletal: nl extremities to inspection, nl gait and stance Extremities: normal pulses Neurological: [employer] II-XII intact, nl mental status, nl speech, nl strength Skin: nl turgor, No rash or lesions Lymph: nl lymph nodes Results Result Diagram: 09/10/17 0513 09/10/17 0512 Results 24 hrs Laboratory Tests Test 09/09/17 17:36 09/09/17 20:09 09/09/17 22:30 09/10/17 01:00 Bedside Glucose 95 76 75 87 Test 09/10/17 05:04 09/10/17 05:12 09/10/17 05:13 09/10/17 09:12 Bedside Glucose 80 136 Sodium Level 136 Potassium Level 3.4 L Chloride Level 97 Carbon Dioxide Level 33 H Anion Gap 9 Blood Urea Nitrogen 7 Creatinine 0.71 Glucose Level 87 Calcium Level 8.3 L White Blood Count 5.4 # Red Blood Count 3.46 L Hemoglobin 10.5 L Hematocrit 32.2 L Mean Corpuscular Volume 93.1 Mean Corpuscular Hemoglobin 30.3 Mean Corpuscular Hemoglobin Concent 32.6 Red Cell Distribution Width 14.9 H Platelet Count 224 Mean Platelet Volume 9.1 Neutrophils % 68.3 Lymphocytes % 20.7 Monocytes % 8.2 Eosinophils % 1.7 Basophils % 0.9 Nucleated Red Blood Cells % 0.0 Neutrophils # 3.7 Lymphocytes # 1.1 Monocytes # 0.4 Eosinophils # 0.1 Basophils # 0.1 Nucleated Red Blood Cells # 0.0 Phosphorus Level 3.8 Magnesium Level 2.0 Test 09/10/17 12:15 Bedside Glucose 183 Medications Medications Current Medications Ondansetron HCl (Zofran Inj) 4 mg Q6H PRN IV NAUSEA AND/OR VOMITING Last administered on 09/10/17 01:07; Admin Dose 4 MG; Start 09/08/17 at 16:00 Acetaminophen (Tylenol Tab) 650 mg Q6H PRN PO PAIN LEVEL 1-3 OR FEVER; Start 09/08/17 at 16:00 Acetaminophen/ Hydrocodone Bitart ([place] (5/325)) 1 tab Q6H PRN PO MODERATE PAIN LEVEL 4-6 Last administered on 09/10/17 10:28; Admin Dose 1 TAB; Start 09/08/17 at 16:00 Morphine Sulfate (morphine) 2 mg Q4H PRN IV SEVERE PAIN LEVEL 7-10 Last administered on 09/09/17 17:44; Admin Dose 2 MG; Start 09/08/17 at 16:00 Docusate Sodium (Colace) 100 mg Q12H PRN PO CONSTIPATION; Start 09/08/17 at 16 :00 Magnesium Hydroxide (Milk Of Mag) 30 ml DAILY PRN PO CONSTIPATION; Start 09/08 at 16:00 Pantoprazole (Protonix Iv) 40 mg DAILY@06 IV Last administered on 09/10/17 05 :05; Admin Dose 40 MG; Start 09/09/17 at 06:00 Insulin Glargine (Lantus) 10 unit QAM SC ; Start 09/09/17 at 09:00 Lactulose (Enulose) 10 gm Q12 PRN PO constipation; Start 09/08/17 at 16:00 Miscellaneous Information 1 ea NOTE XX ; Start 09/08/17 at 16:00 Glucose (Glutose) 15 gm Q15M PRN PO DECREASED GLUCOSE; Start 09/08/17 at 16:00 Glucose (Glutose) 22.5 gm Q15M PRN PO DECREASED GLUCOSE; Start 09/08/17 at 16: 00 Dextrose (D50w Syringe) 25 ml Q15M PRN IV DECREASED GLUCOSE; Start 09/08/17 at 16:00 Dextrose (D50w Syringe) 50 ml Q15M PRN IV DECREASED GLUCOSE; Start 09/08/17 at 16:00 Glucagon (Glucagen) 1 mg Q15M PRN IM DECREASED GLUCOSE; Start 09/08/17 at 16: 00 Glucose 15 gm 15 gm Q15M PRN BUCCAL DECREASED GLUCOSE; Start 09/08/17 at 16:00 Dextrose/Sodium Chloride 1,000 ml @ 40 mls/hr Q24H IV Last administered on 01:02; Admin Dose 40 MLS/HR; Start 09/08/17 at 23:00 Ceftriaxone Sodium 50 ml @ 100 mls/hr Q24H IVPB Last administered on 17:44; Admin Dose 100 MLS/HR; Start 09/09/17 at 17:30 Metronidazole (Flagyl 500 Mg (Pmx)) 100 ml @ 100 mls/hr Q8 IVPB Last administered on 09/10/17 14:08; Admin Dose 100 MLS/HR; Start 09/09/17 at 17: 30 Tramadol HCl (Ultram) 50 mg Q6H PRN PO PAIN; Start 09/09/17 at 17:30 Midodrine (Proamatine) 10 mg TID@,,17 PO Last administered on 09/10/17 14 :11; Admin Dose 10 MG; Start 09/09/17 at 18:03 Diagnostic Test (Pha) (Accu-Chek) 1 ea 02 XX ; Start 09/10/17 at 14:30 LAURA RAMIREZ MD Sep 10, 2017 15:37
[2017-09-10] MEDS: Insulin NOVOLOG SS MILD Algorithm (SS with meals and bedtime) SC SCH ×2 (17:11→21:33)
[2017-09-10] MEDS ORDERED: INSULIN ASPART [NOVOLOG] 3 ML PEN SC SCH (17:35)
[2017-09-10] MEDS: CEFTRIAXONE 1 GM/50 ML (PMX) 50 ML IVPB SCH (17:42)
[2017-09-10 20:00] VITALS: BP 100/64; RESP 19
[2017-09-11 02:00] VITALS: BP 88/51; RESP 19
[2017-09-11] MEDS: ACCUCHECK 2 AM XX SCH ×2 (02:00→22:36)
[2017-09-11] MEDS: metroNIDAZOLE 500 MG/NS (PMX) 100 ML IVPB SCH ×3 (05:39→21:04)
[2017-09-11] MEDS: PANTOPRAZOLE 40 MG INJ IV SCH (05:39)
[2017-09-11 06:13] LABS: CREATININE 0.74 mg/dl (0.44-1.00)
[2017-09-11 07:50] VITALS: BP 98/62; RESP 16
[2017-09-11] MEDS: INSULIN GLARGINE [LANtus] 3 ML PEN SC SCH (09:03)
[2017-09-11] MEDS: Insulin NOVOLOG SS MILD Algorithm (SS with meals and bedtime) SC SCH ×4 (09:04→21:00)
[2017-09-11] MEDS: MIDODRINE 5 MG TAB PO SCH ×3 (09:04→18:01)
[2017-09-11] MEDS: HYDROCODONE/APAP (5/325) TAB PO PRN (10:23)
--- NOTE | 2017-09-11 12:20 | PN ---
FABI OSORIO 09/11/17 1220: Date/Time of Note Date/Time of Note DATE: 09/11/17 TIME: 12:19 Assessment/Plan VTE Prophylaxis VTE Prophylaxis Intervention: ambulation Lines/Catheters IV Catheter Type (from Nrs): Saline Lock Assessment/Plan Chief Complaint/Hosp Course # Abdominal pain due to gall stones, MRCP neg for Choledocholithiasis, pt refused cholecystectomy earlier, now wants to proceed # Recurrent ascites, status post paracentesis with removal of 5 liters. 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 # Diabetes mellitus type II.. # GERD. # Degenerative disease of the cervical spine. # Hiatal hernia. Problems: Assessment/Plan 1. dr Escobar informed Subjective 24 Hr Interval Summary Gastrointestinal: decreased appetite, pain Exam/Review of Systems Vital Signs Vitals Vital Signs Date Time Temp Pulse Resp B/P Pulse Ox O2 Delivery O2 Flow Rate FiO2 09/11/17 07:50 98.0 80 16 98/62 98 09/08/17 18:15 Room Air Intake and Output 09/10/17 09/10/17 09/11/17 15:00 23:00 07:00 Intake Total 100 ml 1720 ml 780 ml Balance 100 ml 1720 ml 780 ml Exam Constitutional: alert, oriented Gastrointestinal: rebound or guarding, soft Results Result Diagram: 09/10/17 0513 09/11/17 0440 Results 24 hrs Laboratory Tests Test 09/10/17 17:09 09/10/17 21:31 09/11/17 04:40 09/11/17 08:48 Bedside Glucose 197 213 148 Sodium Level 135 Potassium Level 4.0 Chloride Level 98 Carbon Dioxide Level 33 H Anion Gap 8 Blood Urea Nitrogen 9 Creatinine 0.74 Glucose Level 165 Calcium Level 8.0 L Medications Medications Current Medications Ondansetron HCl (Zofran Inj) 4 mg Q6H PRN IV NAUSEA AND/OR VOMITING Last administered on 09/10/17t 01:07; Admin Dose 4 MG; Start 09/08/17 at 16:00 Acetaminophen (Tylenol Tab) 650 mg Q6H PRN PO PAIN LEVEL 1-3 OR FEVER; Start 09/08/17 at 16:00 Acetaminophen/ Hydrocodone Bitart ([place] (5/325)) 1 tab Q6H PRN PO MODERATE PAIN LEVEL 4-6 Last administered on 09/11/17 10:23; Admin Dose 1 TAB; Start 09/08/17 at 16:00 Morphine Sulfate (morphine) 2 mg Q4H PRN IV SEVERE PAIN LEVEL 7-10 Last administered on 09/09/17 17:44; Admin Dose 2 MG; Start 09/08/17 at 16:00 Docusate Sodium (Colace) 100 mg Q12H PRN PO CONSTIPATION; Start 09/08/17 at 16 :00 Magnesium Hydroxide (Milk Of Mag) 30 ml DAILY PRN PO CONSTIPATION; Start 09/08 at 16:00 Pantoprazole (Protonix Iv) 40 mg DAILY@06 IV Last administered on 09/11/17 05 :39; Admin Dose 40 MG; Start 09/09/17 at 06:00 Insulin Glargine (Lantus) 10 unit QAM SC Last administered on 09/11/17 09:03 ; Admin Dose 10 UNIT; Start 09/09/17 at 09:00 Lactulose (Enulose) 10 gm Q12 PRN PO constipation; Start 09/08/17 at 16:00 Miscellaneous Information 1 ea NOTE XX ; Start 09/08/17 at 16:00 Glucose (Glutose) 15 gm Q15M PRN PO DECREASED GLUCOSE; Start 09/08/17 at 16:00 Glucose (Glutose) 22.5 gm Q15M PRN PO DECREASED GLUCOSE; Start 09/08/17 at 16: 00 Dextrose (D50w Syringe) 25 ml Q15M PRN IV DECREASED GLUCOSE; Start 09/08/17 at 16:00 Dextrose (D50w Syringe) 50 ml Q15M PRN IV DECREASED GLUCOSE; Start 09/08/17 at 16:00 Glucagon (Glucagen) 1 mg Q15M PRN IM DECREASED GLUCOSE; Start 09/08/17 at 16: 00 Glucose 15 gm 15 gm Q15M PRN BUCCAL DECREASED GLUCOSE; Start 09/08/17 at 16:00 Dextrose/Sodium Chloride 1,000 ml @ 40 mls/hr Q24H IV Last administered on 17:50; Admin Dose 40 MLS/HR; Start 09/08/17 at 23:00 Ceftriaxone Sodium 50 ml @ 100 mls/hr Q24H IVPB Last administered on 17:42; Admin Dose 100 MLS/HR; Start 09/09/17 at 17:30 Metronidazole (Flagyl 500 Mg (Pmx)) 100 ml @ 100 mls/hr Q8 IVPB Last administered on 09/11/17 05:39; Admin Dose 100 MLS/HR; Start 09/09/17 at 17: 30 Tramadol HCl (Ultram) 50 mg Q6H PRN PO PAIN; Start 09/09/17 at 17:30 Midodrine (Proamatine) 10 mg TID@09,13,17 PO Last administered on 09/11/17 09 :04; Admin Dose 10 MG; Start 09/09/17 at 18:03 Diagnostic Test (Pha) (Accu-Chek) 1 ea 02 XX ; Start 09/10/17 at 14:30 REI FONSECA MD 09/11/17 1602: Assessment/Plan Assessment/Plan Chief Complaint/Hosp Course Reval for surgery as pt having pain Problems: Exam/Review of Systems Results Result Diagram: 09/10/17 0513 09/11/17 0440 FABI OSORIO Sep 11, 2017 12:20 REI FONSECA MD Sep 11, 2017 16:02
[2017-09-11 14:15] VITALS: BP 110/69; RESP 16
[2017-09-11] MEDS: CEFTRIAXONE 1 GM/50 ML (PMX) 50 ML IVPB SCH (18:00)
[2017-09-11] MEDS: FUROSEMIDE 40 MG TAB PO SCH (18:01)
--- NOTE | 2017-09-11 19:52 | CONS ---
Date/Time of Note Date/Time of Note DATE: 09/11/17 TIME: 19:50 Assessment/Plan Assessment/Plan Additional Assessment/Plan IMPRESSION: 1. Multiple gallstones. 2. No evidence of choledocholithiasis. 3. Autoimmune hepatitis. 4. Ascites no evidence of spontaneous bacterial peritonitis. 5. Right upper quadrant pain PLAN: 1. To continue present care. If the pain is persistent, we will get a surgical consult from a symptomatic gallstone. 2. Start the patient on low dose of diuretics for fluid overload and lactulose. 3. Patient is a high risk for lap rola and there is no guarantee the pain would disappear after cholecystectomy Consultation Date/Type/Reason Admit Date/Time Sep 08, 2017 at 15:51 Initial Consult Date 09/09/17 Type of Consultation: surgical Referring Provider: REI FONSECA MD 24 HR Interval Summary Free Text/Dictation Recent complains of right upper quadrant pain which is aggravated by the food. Son does not want to eat solid food Exam/Review of Systems Vital Signs Vitals Vital Signs Date Time Temp Pulse Resp B/P Pulse Ox O2 Delivery O2 Flow Rate FiO2 09/11/17 14:15 98.1 76 16 110/69 96 09/08/17 18:15 Room Air Intake and Output 09/10/17 09/10/17 09/11/17 15:00 23:00 07:00 Intake Total 100 ml 1720 ml 780 ml Balance 100 ml 1720 ml 780 ml Exam Constitutional: alert, oriented, well developed Respiratory: clear to auscultation, normal air movement Cardiovascular: nl pulses, regular rate and rhythm Gastrointestinal: tender (Right upper quadrant and right flank) Musculoskeletal: nl extremities to inspection, nl gait and stance Extremities: normal pulses Results Result Diagram: 09/10/17 0513 09/11/17 0440 Results 24 hrs Laboratory Tests Test 09/10/17 21:31 09/11/17 04:40 09/11/17 08:48 09/11/17 12:22 Bedside Glucose 213 148 166 Sodium Level 135 Potassium Level 4.0 Chloride Level 98 Carbon Dioxide Level 33 H Anion Gap 8 Blood Urea Nitrogen 9 Creatinine 0.74 Glucose Level 165 Calcium Level 8.0 L Test 09/11/17 18:00 Bedside Glucose 113 Medications Medications Current Medications Ondansetron HCl (Zofran Inj) 4 mg Q6H PRN IV NAUSEA AND/OR VOMITING Last administered on 09/10/17 01:07; Admin Dose 4 MG; Start 09/08/17 at 16:00 Acetaminophen (Tylenol Tab) 650 mg Q6H PRN PO PAIN LEVEL 1-3 OR FEVER; Start 09/08/17 at 16:00 Acetaminophen/ Hydrocodone Bitart ([place] (5/325)) 1 tab Q6H PRN PO MODERATE PAIN LEVEL 4-6 Last administered on 09/11/17 10:23; Admin Dose 1 TAB; Start 09/08/17 at 16:00 Morphine Sulfate (morphine) 2 mg Q4H PRN IV SEVERE PAIN LEVEL 7-10 Last administered on 09/09/17 17:44; Admin Dose 2 MG; Start 09/08/17 at 16:00 Docusate Sodium (Colace) 100 mg Q12H PRN PO CONSTIPATION; Start 09/08/17 at 16 :00 Magnesium Hydroxide (Milk Of Mag) 30 ml DAILY PRN PO CONSTIPATION; Start 09/08 at 16:00 Pantoprazole (Protonix Iv) 40 mg DAILY@06 IV Last administered on 09/11/17 05 :39; Admin Dose 40 MG; Start 09/09/17 at 06:00 Insulin Glargine (Lantus) 10 unit QAM SC Last administered on 09/11/17 09:03 ; Admin Dose 10 UNIT; Start 09/09/17 at 09:00 Lactulose (Enulose) 10 gm Q12 PRN PO constipation; Start 09/08/17 at 16:00 Miscellaneous Information 1 ea NOTE XX ; Start 09/08/17 at 16:00 Glucose (Glutose) 15 gm Q15M PRN PO DECREASED GLUCOSE; Start 09/08/17 at 16:00 Glucose (Glutose) 22.5 gm Q15M PRN PO DECREASED GLUCOSE; Start 09/08/17 at 16: 00 Dextrose (D50w Syringe) 25 ml Q15M PRN IV DECREASED GLUCOSE; Start 09/08/17 at 16:00 Dextrose (D50w Syringe) 50 ml Q15M PRN IV DECREASED GLUCOSE; Start 09/08/17 at 16:00 Glucagon (Glucagen) 1 mg Q15M PRN IM DECREASED GLUCOSE; Start 09/08/17 at 16: 00 Glucose 15 gm 15 gm Q15M PRN BUCCAL DECREASED GLUCOSE; Start 09/08/17 at 16:00 Dextrose/Sodium Chloride 1,000 ml @ 40 mls/hr Q24H IV Last administered on 17:50; Admin Dose 40 MLS/HR; Start 09/08/17 at 23:00 Ceftriaxone Sodium 50 ml @ 100 mls/hr Q24H IVPB Last administered on 18:00; Admin Dose 100 MLS/HR; Start 09/09/17 at 17:30 Metronidazole (Flagyl 500 Mg (Pmx)) 100 ml @ 100 mls/hr Q8 IVPB Last administered on 09/11/17 14:37; Admin Dose 100 MLS/HR; Start 09/09/17 at 17: 30 Tramadol HCl (Ultram) 50 mg Q6H PRN PO PAIN; Start 09/09/17 at 17:30 Midodrine (Proamatine) 10 mg TID@09,13,17 PO Last administered on 09/11/17 18 :01; Admin Dose 10 MG; Start 09/09/17 at 18:03 Diagnostic Test (Pha) (Accu-Chek) 1 ea 02 XX ; Start 09/10/17 at 14:30 Mycophenolate Mofetil (Cellcept) 500 mg TID PO ; Start 09/11/17 at 21:00 LAURA RAMIREZ MD Sep 11, 2017 19:52
[2017-09-11] MEDS: MYCOPHENOLATE 250 MG CAP PO SCH (21:04)
[2017-09-11 21:09] VITALS: BP 94/54; RESP 18
[2017-09-11] MEDS: DEXTROSE 5%-0.45% NACL 1,000 ML IV SCH (22:36)
[2017-09-12 03:13] VITALS: BP 103/60; RESP 18
[2017-09-12] MEDS: PANTOPRAZOLE 40 MG INJ IV SCH (05:15)
[2017-09-12] MEDS: metroNIDAZOLE 500 MG/NS (PMX) 100 ML IVPB SCH ×3 (05:15→22:00)
[2017-09-12] MEDS: FUROSEMIDE 40 MG TAB PO SCH ×2 (05:18→17:05)
[2017-09-12] MEDS: Insulin NOVOLOG SS MILD Algorithm (SS with meals and bedtime) SC SCH ×4 (07:30→20:28)
[2017-09-12 08:15] VITALS: BP 76/51; RESP 18
[2017-09-12 09:14] VITALS: BP 102/69; PULSE 69
[2017-09-12] MEDS: MYCOPHENOLATE 250 MG CAP PO SCH ×3 (09:16→20:25)
[2017-09-12] MEDS: INSULIN GLARGINE [LANtus] 3 ML PEN SC SCH (09:18)
[2017-09-12] MEDS: MIDODRINE 5 MG TAB PO SCH ×3 (09:20→17:03)
[2017-09-12 12:30] VITALS: BP 95/69
--- NOTE | 2017-09-12 12:31 | PN ---
Date/Time of Note Date/Time of Note DATE: 09/12/17 TIME: 12:30 Assessment/Plan VTE Prophylaxis VTE Prophylaxis Intervention: ambulation Lines/Catheters IV Catheter Type (from Nrsg): Saline Lock Assessment/Plan Chief Complaint/Hosp Course # Abdominal pain due to gall stones, MRCP neg for Choledocholithiasis, pt refused cholecystectomy earlier, now wants to proceed # Recurrent ascites, status post paracentesis with removal of 5 liters. 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 # Diabetes mellitus type II.. # GERD. # Degenerative disease of the cervical spine. # Hiatal hernia. Problems: Assessment/Plan 1. clear liquid 2. proceed with surgery Wednesday with dr Escobar Subjective 24 Hr Interval Summary Constitutional: improved, no complaints Gastrointestinal: pain Exam/Review of Systems Vital Signs Vitals Vital Signs Date Time Temp Pulse Resp B/P Pulse Ox O2 Delivery O2 Flow Rate FiO2 09/12/17 09:14 69 102/69 09/12/17 08:15 98.4 18 97 09/08/17 18:15 Room Air Intake and Output 09/11/17 09/11/17 09/12/17 15:00 23:00 07:00 Intake Total 1390 ml 920 ml Balance 1390 ml 920 ml Exam Constitutional: alert, oriented Gastrointestinal: rebound or guarding Results Result Diagram: 09/10/17 0513 09/11/17 0440 Results 24 hrs Laboratory Tests Test 09/11/17 18:00 09/11/17 21:06 09/12/17 08:10 09/12/17 11:45 Bedside Glucose 113 124 112 145 Medications Medications Current Medications Ondansetron HCl (Zofran Inj) 4 mg Q6H PRN IV NAUSEA AND/OR VOMITING Last administered on 09/10/17 01:07; Admin Dose 4 MG; Start 09/08/17 at 16:00 Acetaminophen (Tylenol Tab) 650 mg Q6H PRN PO PAIN LEVEL 1-3 OR FEVER; Start 09/08/17 at 16:00 Acetaminophen/ Hydrocodone Bitart ([place] (5/325)) 1 tab Q6H PRN PO MODERATE PAIN LEVEL 4-6 Last administered on 09/11/17 10:23; Admin Dose 1 TAB; Start 09/08/17 at 16:00 Morphine Sulfate (morphine) 2 mg Q4H PRN IV SEVERE PAIN LEVEL 7-10 Last administered on 09/09/17 17:44; Admin Dose 2 MG; Start 09/08/17 at 16:00 Docusate Sodium (Colace) 100 mg Q12H PRN PO CONSTIPATION; Start 09/08/17 at 16 :00 Magnesium Hydroxide (Milk Of Mag) 30 ml DAILY PRN PO CONSTIPATION; Start 09/08 at 16:00 Pantoprazole (Protonix Iv) 40 mg DAILY@06 IV Last administered on 09/12/17 05 :15; Admin Dose 40 MG; Start 09/09/17 at 06:00 Insulin Glargine (Lantus) 10 unit QAM SC Last administered on 09/12/17 09:18 ; Admin Dose 10 UNIT; Start 09/09/17 at 09:00 Lactulose (Enulose) 10 gm Q12 PRN PO constipation Last administered on 05:16; Admin Dose 10 GM; Start 09/08/17 at 16:00 Miscellaneous Information 1 ea NOTE XX ; Start 09/08/17 at 16:00 Glucose (Glutose) 15 gm Q15M PRN PO DECREASED GLUCOSE; Start 09/08/17 at 16:00 Glucose (Glutose) 22.5 gm Q15M PRN PO DECREASED GLUCOSE; Start 09/08/17 at 16: 00 Dextrose (D50w Syringe) 25 ml Q15M PRN IV DECREASED GLUCOSE; Start 09/08/17 at 16:00 Dextrose (D50w Syringe) 50 ml Q15M PRN IV DECREASED GLUCOSE; Start 09/08/17 at 16:00 Glucagon (Glucagen) 1 mg Q15M PRN IM DECREASED GLUCOSE; Start 09/08/17 at 16: 00 Glucose 15 gm 15 gm Q15M PRN BUCCAL DECREASED GLUCOSE; Start 09/08/17 at 16:00 Dextrose/Sodium Chloride 1,000 ml @ 40 mls/hr Q24H IV Last administered on 22:36; Admin Dose 40 MLS/HR; Start 09/08/17 at 23:00 Ceftriaxone Sodium 50 ml @ 100 mls/hr Q24H IVPB Last administered on 18:00; Admin Dose 100 MLS/HR; Start 09/09/17 at 17:30 Metronidazole (Flagyl 500 Mg (Pmx)) 100 ml @ 100 mls/hr Q8 IVPB Last administered on 09/12/17 05:15; Admin Dose 100 MLS/HR; Start 09/09/17 at 17: 30 Tramadol HCl (Ultram) 50 mg Q6H PRN PO PAIN; Start 09/09/17 at 17:30 Midodrine (Proamatine) 10 mg TID@,,17 PO Last administered on 09/12/17 09 :20; Admin Dose 10 MG; Start 09/09/17 at 18:03 Diagnostic Test (Pha) (Accu-Chek) 1 ea 02 XX ; Start 09/10/17 at 14:30 Mycophenolate Mofetil (Cellcept) 500 mg TID PO Last administered on 09/12/17 09:16; Admin Dose 500 MG; Start 09/11/17 at 21:00 FABI OSORIO Sep 12, 2017 12:31
[2017-09-12 14:25] VITALS: BP 109/69; RESP 16
--- NOTE | 2017-09-12 16:37 | CONS ---
Date/Time of Note Date/Time of Note DATE: 09/12/17 TIME: 16:36 Assessment/Plan Assessment/Plan Additional Assessment/Plan IMPRESSION: 1. Multiple gallstones. 2. No evidence of choledocholithiasis. 3. Autoimmune hepatitis. 4. Ascites no evidence of spontaneous bacterial peritonitis. 5. Right upper quadrant pain PLAN: 1. To continue present care. If the pain is persistent, we will get a surgical consult from a symptomatic gallstone. 2. Start the patient on low dose of diuretics for fluid overload and lactulose. 3. Lap rola on Wednesday Consultation Date/Type/Reason Admit Date/Time Sep 11, 2017 at 14:46 Initial Consult Date 09/09/17 Type of Consultation: surgical Referring Provider: REI FONSECA MD 24 HR Interval Summary Free Text/Dictation Complains of pain in the right upper quadrant Exam/Review of Systems Vital Signs Vitals Vital Signs Date Time Temp Pulse Resp B/P Pulse Ox O2 Delivery O2 Flow Rate FiO2 09/12/17 14:25 98.5 77 16 109/69 97 09/08/17 18:15 Room Air Intake and Output 09/11/17 09/11/17 09/12/17 15:00 23:00 07:00 Intake Total 1390 ml 920 ml Balance 1390 ml 920 ml Exam Constitutional: alert, oriented, well developed Psych: nl mood/affect, no complaints Head: atraumatic, normocephalic Eyes: EOMI, PERRL, nl conjunctiva, nl lids, nl sclera ENMT: nl external ears & nose, nl lips & teeth, nl nasal mucosa & septum Neck: non-tender, supple Respiratory: clear to auscultation, normal air movement Cardiovascular: nl pulses, regular rate and rhythm Gastrointestinal: nl liver, spleen, non-tender, soft Musculoskeletal: nl extremities to inspection, nl gait and stance Extremities: normal pulses Neurological: REMOTE SENSING ENGINEER II-XII intact, nl mental status, nl speech, nl strength Skin: nl turgor, No rash or lesions Lymph: nl lymph nodes Results Result Diagram: 09/10/17 0513 09/11/17 0440 Results 24 hrs Laboratory Tests Test 09/11/17 18:00 09/11/17 21:06 09/12/17 08:10 09/12/17 11:45 Bedside Glucose 113 124 112 145 Medications Medications Current Medications Ondansetron HCl (Zofran Inj) 4 mg Q6H PRN IV NAUSEA AND/OR VOMITING Last administered on 09/10/17 01:07; Admin Dose 4 MG; Start 09/08/17 at 16:00 Acetaminophen (Tylenol Tab) 650 mg Q6H PRN PO PAIN LEVEL 1-3 OR FEVER; Start 09/08/17 at 16:00 Acetaminophen/ Hydrocodone Bitart ([place] (5/325)) 1 tab Q6H PRN PO MODERATE PAIN LEVEL 4-6 Last administered on 09/11/17 10:23; Admin Dose 1 TAB; Start 09/08/17 at 16:00 Morphine Sulfate (morphine) 2 mg Q4H PRN IV SEVERE PAIN LEVEL 7-10 Last administered on 09/09/17 17:44; Admin Dose 2 MG; Start 09/08/17 at 16:00 Docusate Sodium (Colace) 100 mg Q12H PRN PO CONSTIPATION; Start 09/08/17 at 16 :00 Magnesium Hydroxide (Milk Of Mag) 30 ml DAILY PRN PO CONSTIPATION; Start 09/08 at 16:00 Pantoprazole (Protonix Iv) 40 mg DAILY@06 IV Last administered on 09/12/17 05 :15; Admin Dose 40 MG; Start 09/09/17 at 06:00 Insulin Glargine (Lantus) 10 unit QAM SC Last administered on 09/12/17 09:18 ; Admin Dose 10 UNIT; Start 09/09/17 at 09:00 Lactulose (Enulose) 10 gm Q12 PRN PO constipation Last administered on 05:16; Admin Dose 10 GM; Start 09/08/17 at 16:00 Miscellaneous Information 1 ea NOTE XX ; Start 09/08/17 at 16:00 Glucose (Glutose) 15 gm Q15M PRN PO DECREASED GLUCOSE; Start 09/08/17 at 16:00 Glucose (Glutose) 22.5 gm Q15M PRN PO DECREASED GLUCOSE; Start 09/08/17 at 16: 00 Dextrose (D50w Syringe) 25 ml Q15M PRN IV DECREASED GLUCOSE; Start 09/08/17 at 16:00 Dextrose (D50w Syringe) 50 ml Q15M PRN IV DECREASED GLUCOSE; Start 09/08/17 at 16:00 Glucagon (Glucagen) 1 mg Q15M PRN IM DECREASED GLUCOSE; Start 09/08/17 at 16: 00 Glucose 15 gm 15 gm Q15M PRN BUCCAL DECREASED GLUCOSE; Start 09/08/17 at 16:00 Dextrose/Sodium Chloride 1,000 ml @ 40 mls/hr Q24H IV Last administered on 22:36; Admin Dose 40 MLS/HR; Start 09/08/17 at 23:00 Ceftriaxone Sodium 50 ml @ 100 mls/hr Q24H IVPB Last administered on 18:00; Admin Dose 100 MLS/HR; Start 09/09/17 at 17:30 Metronidazole (Flagyl 500 Mg (Pmx)) 100 ml @ 100 mls/hr Q8 IVPB Last administered on 09/12/17 14:11; Admin Dose 100 MLS/HR; Start 09/09/17 at 17: 30 Tramadol HCl (Ultram) 50 mg Q6H PRN PO PAIN; Start 09/09/17 at 17:30 Midodrine (Proamatine) 10 mg TID@09,13,17 PO Last administered on 09/12/17 12 :32; Admin Dose 10 MG; Start 09/09/17 at 18:03 Diagnostic Test (Pha) (Accu-Chek) 1 ea 02 XX ; Start 09/10/17 at 14:30 Mycophenolate Mofetil (Cellcept) 500 mg TID PO Last administered on 09/12/17 14:11; Admin Dose 500 MG; Start 09/11/17 at 21:00 LAURA RAMIREZ MD Sep 12, 2017 16:37
[2017-09-12] MEDS: CEFTRIAXONE 1 GM/50 ML (PMX) 50 ML IVPB SCH (17:01)
[2017-09-12 20:22] VITALS: BP 94/62; RESP 18
[2017-09-13] MEDS: ACCUCHECK 2 AM XX SCH (02:00)
[2017-09-13 02:51] VITALS: BP 83/52; RESP 18
[2017-09-13] MEDS: DEXTROSE 5%-0.45% NACL 1,000 ML IV SCH ×2 (03:01→23:00)
[2017-09-13] MEDS: PANTOPRAZOLE 40 MG INJ IV SCH (05:28)
[2017-09-13] MEDS: metroNIDAZOLE 500 MG/NS (PMX) 100 ML IVPB SCH ×3 (05:28→22:10)
[2017-09-13] MEDS: FUROSEMIDE 40 MG TAB PO SCH ×2 (05:32→17:53)
[2017-09-13] MEDS: ONDANSETRON 4 MG INJ IV PRN ×3 (05:37→17:53)
[2017-09-13 06:13] LABS: INR 1.31; PROTIME 16.5 Sec (11.9-14.9); PT RATIO 1.3
[2017-09-13 06:14] LABS: PARTIAL THROMBOPLASTIN TIME 34.1 Sec (25.0-35.0)
[2017-09-13] MEDS: Insulin NOVOLOG SS MILD Algorithm (SS with meals and bedtime) SC SCH ×4 (07:30→21:00)
[2017-09-13 08:12] VITALS: BP 87/56; RESP 18
[2017-09-13] MEDS: MYCOPHENOLATE 250 MG CAP PO SCH ×3 (08:38→20:28)
[2017-09-13] MEDS: INSULIN GLARGINE [LANtus] 3 ML PEN SC SCH (08:40)
[2017-09-13] MEDS: MIDODRINE 5 MG TAB PO SCH ×3 (08:45→17:53)
[2017-09-13 08:53] VITALS: BP 92/54
[2017-09-13 14:27] VITALS: BP 92/55; PULSE 82; RESP 18
--- NOTE | 2017-09-13 14:47 | CONS ---
Date/Time of Note Date/Time of Note DATE: 09/13/17 TIME: 14:47 Assessment/Plan Assessment/Plan Additional Assessment/Plan Assessment/Plan Additional Assessment/Plan IMPRESSION: 1. Multiple gallstones. 2. No evidence of choledocholithiasis. 3. Autoimmune hepatitis. 4. Ascites no evidence of spontaneous bacterial peritonitis. 5. Right upper quadrant pain PLAN: 1. To continue present care. If the pain is persistent, we will get a surgical consult from a symptomatic gallstone. 2. Start the patient on low dose of diuretics for fluid overload and lactulose. 3. Lap rola Discussed with the daughter Consultation Date/Type/Reason Admit Date/Time Sep 11, 2017 at 14:46 Initial Consult Date 09/09/17 Type of Consultation: surgical Referring Provider: REI FONSECA MD 24 HR Interval Summary Constitutional: improved Exam/Review of Systems Vital Signs Vitals Vital Signs Date Time Temp Pulse Resp B/P Pulse Ox O2 Delivery O2 Flow Rate FiO2 09/13/17 14:27 98.1 82 18 92/55 97 Room Air Intake and Output 09/12/17 09/12/17 09/13/17 15:00 23:00 07:00 Intake Total 1210 ml 1320 ml Balance 1210 ml 1320 ml Exam Constitutional: alert, oriented, well developed Psych: nl mood/affect, no complaints Head: atraumatic, normocephalic Eyes: EOMI, PERRL, nl conjunctiva, nl lids, nl sclera ENMT: nl external ears & nose, nl lips & teeth, nl nasal mucosa & septum Neck: non-tender, supple Respiratory: clear to auscultation, normal air movement Cardiovascular: nl pulses, regular rate and rhythm Gastrointestinal: nl liver, spleen, non-tender, soft Musculoskeletal: nl extremities to inspection, nl gait and stance Extremities: normal pulses Neurological: SECURITY DELIVERY SPECIALIST II-XII intact, nl mental status, nl speech, nl strength Skin: nl turgor, No rash or lesions Lymph: nl lymph nodes Results Result Diagram: 09/10/17 0513 09/11/17 0440 Results 24 hrs Laboratory Tests Test 09/12/17 16:57 09/12/17 20:28 09/13/17 04:46 09/13/17 08:27 Bedside Glucose 100 133 107 Prothrombin Time 16.5 H Prothrombin Time Ratio 1.3 INR International Normalized Ratio 1.31 Activated Partial Thromboplast Time 34.1 Test 09/13/17 11:58 Bedside Glucose 101 Medications Medications Current Medications Ondansetron HCl (Zofran Inj) 4 mg Q6H PRN IV NAUSEA AND/OR VOMITING Last administered on 09/13/17 12:00; Admin Dose 4 MG; Start 09/08/17 at 16:00 Acetaminophen (Tylenol Tab) 650 mg Q6H PRN PO PAIN LEVEL 1-3 OR FEVER; Start 09/08/17 at 16:00 Acetaminophen/ Hydrocodone Bitart ([place] (5/325)) 1 tab Q6H PRN PO MODERATE PAIN LEVEL 4-6 Last administered on 09/11/17 10:23; Admin Dose 1 TAB; Start 09/08/17 at 16:00 Morphine Sulfate (morphine) 2 mg Q4H PRN IV SEVERE PAIN LEVEL 7-10 Last administered on 09/09/17 17:44; Admin Dose 2 MG; Start 09/08/17 at 16:00 Docusate Sodium (Colace) 100 mg Q12H PRN PO CONSTIPATION; Start 09/08/17 at 16 :00 Magnesium Hydroxide (Milk Of Mag) 30 ml DAILY PRN PO CONSTIPATION; Start 09/08 at 16:00 Pantoprazole (Protonix Iv) 40 mg DAILY@06 IV Last administered on 09/13/17 05 :28; Admin Dose 40 MG; Start 09/09/17 at 06:00 Insulin Glargine (Lantus) 10 unit QAM SC Last administered on 09/13/17 08:40 ; Admin Dose 10 UNIT; Start 09/09/17 at 09:00 Lactulose (Enulose) 10 gm Q12 PRN PO constipation Last administered on 05:16; Admin Dose 10 GM; Start 09/08/17 at 16:00 Miscellaneous Information 1 ea NOTE XX ; Start 09/08/17 at 16:00 Glucose (Glutose) 15 gm Q15M PRN PO DECREASED GLUCOSE; Start 09/08/17 at 16:00 Glucose (Glutose) 22.5 gm Q15M PRN PO DECREASED GLUCOSE; Start 09/08/17 at 16: 00 Dextrose (D50w Syringe) 25 ml Q15M PRN IV DECREASED GLUCOSE; Start 09/08/17 at 16:00 Dextrose (D50w Syringe) 50 ml Q15M PRN IV DECREASED GLUCOSE; Start 09/08/17 at 16:00 Glucagon (Glucagen) 1 mg Q15M PRN IM DECREASED GLUCOSE; Start 09/08/17 at 16: 00 Glucose 15 gm 15 gm Q15M PRN BUCCAL DECREASED GLUCOSE; Start 09/08/17 at 16:00 Dextrose/Sodium Chloride 1,000 ml @ 40 mls/hr Q24H IV Last administered on 03:01; Admin Dose 40 MLS/HR; Start 09/08/17 at 23:00 Ceftriaxone Sodium 50 ml @ 100 mls/hr Q24H IVPB Last administered on 17:01; Admin Dose 100 MLS/HR; Start 09/09/17 at 17:30 Metronidazole (Flagyl 500 Mg (Pmx)) 100 ml @ 100 mls/hr Q8 IVPB Last administered on 09/13/17 14:10; Admin Dose 100 MLS/HR; Start 09/09/17 at 17: 30 Tramadol HCl (Ultram) 50 mg Q6H PRN PO PAIN; Start 09/09/17 at 17:30 Midodrine (Proamatine) 10 mg TID@,13,17 PO Last administered on 09/13/17 14 :03; Admin Dose 10 MG; Start 09/09/17 at 18:03 Diagnostic Test (Pha) (Accu-Chek) 1 ea 02 XX ; Start 09/10/17 at 14:30 Mycophenolate Mofetil (Cellcept) 500 mg TID PO Last administered on 09/13/17 14:00; Admin Dose 500 MG; Start 09/11/17 at 21:00 LAURA RAMIREZ MD Sep 13, 2017 14:47
--- NOTE | 2017-09-13 15:07 | PN ---
Date/Time of Note Date/Time of Note DATE: 09/13/17 TIME: 15:04 Assessment/Plan VTE Prophylaxis VTE Prophylaxis Intervention: other Lines/Catheters IV Catheter Type (from Nrsg): Saline Lock Assessment/Plan Chief Complaint/Hosp Course # Abdominal pain due to gall stones, MRCP neg for Choledocholithiasis, pt refused cholecystectomy earlier, now wants to proceed # Recurrent ascites, status post paracentesis with removal of 5 liters. 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 # Diabetes mellitus type II.. # GERD. # Degenerative disease of the cervical spine. # Hiatal hernia. Recs - Left message for Dr Escobar for lap cholecystectomy - Pt understands risks and benefits - npo - iv rocephin/flagyl - on mycophenolate Problems: Subjective 24 Hr Interval Summary Free Text/Dictation Still has persistent pain and had nausea and threw up this am Exam/Review of Systems Vital Signs Vitals Vital Signs Date Time Temp Pulse Resp B/P Pulse Ox O2 Delivery O2 Flow Rate FiO2 09/13/17 14:27 98.1 82 18 92/55 97 Room Air Intake and Output 09/12/17 09/12/17 09/13/17 15:00 23:00 07:00 Intake Total 1210 ml 1320 ml Balance 1210 ml 1320 ml Exam Constitutional: alert, oriented Gastrointestinal: +ascites + TTP in RUQ Ext + edema Results Result Diagram: 09/10/17 0513 09/11/17 0440 Results 24 hrs Laboratory Tests Test 09/12/17 16:57 09/12/17 20:28 09/13/17 04:46 09/13/17 08:27 Bedside Glucose 100 133 107 Prothrombin Time 16.5 H Prothrombin Time Ratio 1.3 INR International Normalized Ratio 1.31 Activated Partial Thromboplast Time 34.1 Test 09/13/17 11:58 Bedside Glucose 101 Medications Medications Current Medications Ondansetron HCl (Zofran Inj) 4 mg Q6H PRN IV NAUSEA AND/OR VOMITING Last administered on 09/13/17t 12:00; Admin Dose 4 MG; Start 09/08/17 at 16:00 Acetaminophen (Tylenol Tab) 650 mg Q6H PRN PO PAIN LEVEL 1-3 OR FEVER; Start 09/08/17 at 16:00 Acetaminophen/ Hydrocodone Bitart ([place] (5/325)) 1 tab Q6H PRN PO MODERATE PAIN LEVEL 4-6 Last administered on 09/11/17 10:23; Admin Dose 1 TAB; Start 09/08/17 at 16:00 Morphine Sulfate (morphine) 2 mg Q4H PRN IV SEVERE PAIN LEVEL 7-10 Last administered on 09/09/17 17:44; Admin Dose 2 MG; Start 09/08/17 at 16:00 Docusate Sodium (Colace) 100 mg Q12H PRN PO CONSTIPATION; Start 09/08/17 at 16 :00 Magnesium Hydroxide (Milk Of Mag) 30 ml DAILY PRN PO CONSTIPATION; Start 09/08 at 16:00 Pantoprazole (Protonix Iv) 40 mg DAILY@06 IV Last administered on 09/13/17 05 :28; Admin Dose 40 MG; Start 09/09/17 at 06:00 Insulin Glargine (Lantus) 10 unit QAM SC Last administered on 09/13/17 08:40 ; Admin Dose 10 UNIT; Start 09/09/17 at 09:00 Lactulose (Enulose) 10 gm Q12 PRN PO constipation Last administered on 05:16; Admin Dose 10 GM; Start 09/08/17 at 16:00 Miscellaneous Information 1 ea NOTE XX ; Start 09/08/17 at 16:00 Glucose (Glutose) 15 gm Q15M PRN PO DECREASED GLUCOSE; Start 09/08/17 at 16:00 Glucose (Glutose) 22.5 gm Q15M PRN PO DECREASED GLUCOSE; Start 09/08/17 at 16: 00 Dextrose (D50w Syringe) 25 ml Q15M PRN IV DECREASED GLUCOSE; Start 09/08/17 at 16:00 Dextrose (D50w Syringe) 50 ml Q15M PRN IV DECREASED GLUCOSE; Start 09/08/17 at 16:00 Glucagon (Glucagen) 1 mg Q15M PRN IM DECREASED GLUCOSE; Start 09/08/17 at 16: 00 Glucose 15 gm 15 gm Q15M PRN BUCCAL DECREASED GLUCOSE; Start 09/08/17 at 16:00 Dextrose/Sodium Chloride 1,000 ml @ 40 mls/hr Q24H IV Last administered on 03:01; Admin Dose 40 MLS/HR; Start 09/08/17 at 23:00 Ceftriaxone Sodium 50 ml @ 100 mls/hr Q24H IVPB Last administered on 17:01; Admin Dose 100 MLS/HR; Start 09/09/17 at 17:30 Metronidazole (Flagyl 500 Mg (Pmx)) 100 ml @ 100 mls/hr Q8 IVPB Last administered on 09/13/17 14:10; Admin Dose 100 MLS/HR; Start 09/09/17 at 17: 30 Tramadol HCl (Ultram) 50 mg Q6H PRN PO PAIN; Start 09/09/17 at 17:30 Midodrine (Proamatine) 10 mg TID@,13,17 PO Last administered on 09/13/17 14 :03; Admin Dose 10 MG; Start 09/09/17 at 18:03 Diagnostic Test (Pha) (Accu-Chek) 1 ea 02 XX ; Start 09/10/17 at 14:30 Mycophenolate Mofetil (Cellcept) 500 mg TID PO Last administered on 09/13/17 14:00; Admin Dose 500 MG; Start 09/11/17 at 21:00 REI FONSECA MD Sep 13, 2017 15:07
[2017-09-13] MEDS: CEFTRIAXONE 1 GM/50 ML (PMX) 50 ML IVPB SCH (17:09)
[2017-09-13 20:28] VITALS: BP 98/64; RESP 18
--- NOTE | 2017-09-13 23:27 | PN ---
Date/Time of Note Date/Time of Note DATE: 09/13/17 TIME: 23:24 Assessment/Plan Lines/Catheters IV Catheter Type (from [facility]): Saline Lock Assessment/Plan Chief Complaint/Hosp Course 1. Cholelithiasis (? symptomatic): Ct: There is a 3.8 mm calcification adjacent to the IVC, possibly a common bile duct stone, MRCP: no biliary dilatation or choledocholithiasis. I had long d/w patient thru strategy specialist and advised her of Mazin B classification which increases her perioperative morbidity/mortality risks significantly. I also advised that I can not promise pain will resolve after surgery since she has significant liver disease with recurrent ascites. Patient has changed her mind and wants to have surgery despite the high risks. -pain management -diet/lifestyle optimization -lap rola tomorrow (pt cleared by team and she understands her high risks and willing to proceed) 2. Liver cirrhosis (autoimmune) with significant ascites: s/p paracentesis -medical management for ascitic fluid management -gi f/u and tx 3. Abdominal pain multifactorial 2nd above -as above 4. Hiatal hernia & GERD -diet/lifestyle optimization 5. Normocytic normochromic anemia: no acute bleed noted -monitor -transfuse as needed 6. Electrolyte imbalance -optimize lytes 7. Hypoalbuminemia: multifactorial (including liver disease) -optimize nutrition -gi liver optimization -supportive 8. DM & HTN -diet/med optimization Thank you, Problems: Subjective 24 Hr Interval Summary Pain persists and patient wants surgery despite her significant risks. Medical team has cleared her for surgery. No f/c. No cp/sob. No cough. No robbins/ dizziness/visual or neuro changes. No dysuria. Bowel function. Exam/Review of Systems Vital Signs Vitals Vital Signs Date Time Temp Pulse Resp B/P Pulse Ox O2 Delivery O2 Flow Rate FiO2 09/13/17 20:28 98.3 81 18 98/64 97 09/13/17 14:27 Room Air Intake and Output 09/12/17 09/12/17 09/13/17 15:00 23:00 07:00 Intake Total 1210 ml 1320 ml Balance 1210 ml 1320 ml Exam Free Text/Dictation Constitutional: alert, oriented Psych: nl mood/affect Head: atraumatic, normocephalic Eyes: nl lids, nl sclera ENMT: mucosa pink and moist, nl nasal mucosa & septum Neck: non-tender, supple Respiratory: clear to auscultation, normal air movement Cardiovascular: nl pulses, regular rate and rhythm Gastrointestinal: non-tender, soft, tenderness improved, No ascites (s/p paracentesis), Non distended Musculoskeletal: nl extremities to inspection, nl gait and stance Extremities: moves all 4, no edema Neurological: nl mental status, nl speech, nl strength Skin: nl turgor, No rash or lesions Lymphatics: Normal inguinal/cervical Results Result Diagram: 09/10/17 0513 09/11/17 0440 TERESA GALINDO MD Sep 13, 2017 23:27
[2017-09-14] MEDS: ACCUCHECK 2 AM XX SCH (02:00)
[2017-09-14 02:57] VITALS: BP 90/56; RESP 18
[2017-09-14] MEDS: PANTOPRAZOLE 40 MG INJ IV SCH (05:46)
[2017-09-14] MEDS: metroNIDAZOLE 500 MG/NS (PMX) 100 ML IVPB SCH ×3 (05:46→22:03)
[2017-09-14] MEDS: FUROSEMIDE 40 MG TAB PO SCH ×2 (05:47→17:29)
[2017-09-14] MEDS: DEXTROSE 5%-0.45% NACL 1,000 ML IV SCH (05:48)
[2017-09-14 07:14] LABS: BASOPHIL # 0.1 10^3/ul (0.0-0.1); BASOPHILS % 0.9 % (0.0-2.0); EOSINOPHILS # 0.1 10^3/ul (0.0-0.5); EOSINOPHILS % 0.9 % (0.0-7.0); HEMOGLOBIN 10.6 g/dl (12.0-16.0); LYMPHOCYTES # 1.9 10^3/ul (0.8-2.9); MEAN CORPUSCULAR HEMOGLOBIN 30.2 pg (29.0-33.0); MEAN CORPUSCULAR HGB CONC 33.1 g/dl (32.0-37.0); MEAN CORPUSCULAR VOLUME 91.2 fl (82.0-101.0); MONOCYTE # 0.5 10^3/ul (0.3-0.9); MONOCYTES % 8.4 % (0.0-11.0); NEUTROPHIL # 3.1 10^3/ul (1.6-7.5); NEUTROPHILS % 55.4 % (39.0-77.0); PLATELET COUNT 257 10^3/UL (140-415); RED BLOOD COUNT 3.51 10^6/ul (4.20-5.40); RED CELL DISTRIBUTION WIDTH 15.1 % (11.5-14.5); WHITE BLOOD COUNT 5.6 10^3/ul (4.8-10.8)
[2017-09-14] MEDS: Insulin NOVOLOG SS MILD Algorithm (SS with meals and bedtime) SC SCH ×4 (07:30→21:00)
[2017-09-14 07:36] LABS: ALBUMIN 2.1 g/dl (3.3-4.9); ALBUMIN/GLOBULIN RATIO 0.61; BILIRUBIN,INDIRECT 0.3 mg/dl (0-1.1); BILIRUBIN,TOTAL 0.3 mg/dl (0.2-1.3); CALCIUM 8.3 mg/dl (8.4-10.2); CREATININE 0.81 mg/dl (0.44-1.00); POTASSIUM 3.2 mmol/L (3.5-5.1); TOTAL PROTEIN 5.5 g/dl (6.1-8.1)
[2017-09-14] MEDS: MIDODRINE 5 MG TAB PO SCH ×3 (07:39→17:28)
[2017-09-14] MEDS: INSULIN GLARGINE [LANtus] 3 ML PEN SC SCH ×2 (07:39→12:08)
[2017-09-14] MEDS: MYCOPHENOLATE 250 MG CAP PO SCH ×3 (07:39→22:03)
[2017-09-14 08:12] VITALS: BP 92/56; RESP 18
[2017-09-14] MEDS ORDERED: FENTAnyl 50 MCG/ML VIAL IV PRN (10:00)
[2017-09-14] MEDS ORDERED: hydrALAzine 20 MG INJ IV PRN (10:00)
[2017-09-14] MEDS ORDERED: DIPHENHYDRAMINE 50 MG INJ IV PRN (10:00)
[2017-09-14] MEDS ORDERED: LABETALOL HCL 20MG INJ IV PRN (10:00)
[2017-09-14] MEDS ORDERED: MEPERIDINE 25 MG INJ IV PRN (10:00)
[2017-09-14] MEDS ORDERED: HYDROmorphONE (0.2 MG/ML) 10ML SYG IV PRN (10:00)
[2017-09-14] MEDS ORDERED: PROCHLORPERAZINE 10 MG INJ IV PRN (10:00)
[2017-09-14] MEDS ORDERED: ONDANSETRON 4 MG INJ IV PRN (10:00)
--- NOTE | 2017-09-14 10:13 | PN ---
Date/Time of Note Date/Time of Note DATE: 09/14/17 TIME: 10:11 Assessment/Plan Lines/Catheters IV [facility] Peripheral IV Assessment/Plan Chief Complaint/Hosp Course 1. Cholelithiasis (? symptomatic): Ct: There is a 3.8 mm calcification adjacent to the IVC, possibly a common bile duct stone, MRCP: no biliary dilatation or choledocholithiasis. I had long d/w patient thru public works manager and advised her of Mazin B classification which increases her perioperative morbidity/mortality risks significantly. I also advised that I can not promise pain will resolve after surgery since she has significant liver disease with recurrent ascites. Patient has changed her mind again and is cancelling surgery again (2nd time) due to high risks. -pain management -diet/lifestyle optimization -soft diet and d/c planning 2. Liver cirrhosis (autoimmune) with significant ascites: s/p paracentesis -medical management for ascitic fluid management -gi f/u and tx 3. Abdominal pain multifactorial 2nd above -as above 4. Hiatal hernia & GERD -diet/lifestyle optimization 5. Normocytic normochromic anemia: no acute bleed noted -monitor -transfuse as needed 6. Electrolyte imbalance -optimize lytes 7. Hypoalbuminemia: multifactorial (including liver disease) -optimize nutrition -gi liver optimization -supportive 8. DM & HTN -diet/med optimization Thank you, Problems: Subjective 24 Hr Interval Summary Pain persists but after talking to her daughter and reviewing the risks, the patient decided to cancel again and does not want to have surgery. No f/c. No cp/sob. No cough. No robbins/dizziness/visual or neuro changes. No dysuria. Bowel function. Exam/Review of Systems Vital Signs Vitals Vital Signs Date Time Temp Pulse Resp B/P Pulse Ox O2 Delivery O2 Flow Rate FiO2 09/14/17 08:12 97.8 85 18 92/56 94 09/13/17 14:27 Room Air Intake and Output 09/13/17 09/13/17 09/14/17 15:00 23:00 07:00 Intake Total 1170 ml 680 ml Output Total 700 ml 750 ml Balance 470 ml -70 ml Exam Free Text/Dictation Constitutional: alert, oriented Psych: nl mood/affect Head: atraumatic, normocephalic Eyes: nl lids, nl sclera ENMT: mucosa pink and moist, nl nasal mucosa & septum Neck: non-tender, supple Respiratory: clear to auscultation, normal air movement Cardiovascular: nl pulses, regular rate and rhythm Gastrointestinal: non-tender, soft, tenderness improved, No ascites (s/p paracentesis), Non distended Musculoskeletal: nl extremities to inspection, nl gait and stance Extremities: moves all 4, no edema Neurological: nl mental status, nl speech, nl strength Skin: nl turgor, No rash or lesions Lymphatics: Normal inguinal/cervical Results Result Diagram: 09/14/17 0555 09/14/17 0555 TERESA GALINDO MD Sep 14, 2017 10:13
[2017-09-14 10:28] LABS: INR 1.25; PROTIME 15.9 Sec (11.9-14.9); PT RATIO 1.2
[2017-09-14 10:29] LABS: PARTIAL THROMBOPLASTIN TIME 32.4 Sec (25.0-35.0)
[2017-09-14 14:29] VITALS: BP 104/65; RESP 16
--- NOTE | 2017-09-14 16:02 | PN ---
Date/Time of Note Date/Time of Note DATE: 09/14/17 TIME: 16:02 Assessment/Plan VTE Prophylaxis VTE Prophylaxis Intervention: contraindicated Lines/Catheters IV [facility]from [facility]): Peripheral IV Assessment/Plan Chief Complaint/Hosp Course # Abdominal pain due to gall stones, MRCP neg for Choledocholithiasis, pt refused cholecystectomy earlier, now wants to proceed # Recurrent ascites, status post paracentesis with removal of 5 liters. 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 # Diabetes mellitus type II.. # GERD. # Degenerative disease of the cervical spine. # Hiatal hernia. Recs - Declined surgery again - advance diet - iv rocephin/flagyl - on mycophenolate - paracentesis tmw Problems: Subjective 24 Hr Interval Summary Free Text/Dictation Patient declined surgery for 2 nd time Spoke to her at bed side Exam/Review of Systems Vital Signs Vitals Vital Signs Date Time Temp Pulse Resp B/P Pulse Ox O2 Delivery O2 Flow Rate FiO2 09/14/17 14:29 98.1 16 104/65 96 09/14/17 08:12 85 09/13/17 14:27 Room Air Intake and Output 09/13/17 09/13/17 09/14/17 15:00 23:00 07:00 Intake Total 1170 ml 680 ml Output Total 700 ml 750 ml Balance 470 ml -70 ml Exam Constitutional: alert, oriented Gastrointestinal: +ascites + TTP in RUQ Ext + edema Results Result Diagram: 09/14/17 0555 09/14/17 0555 Results 24 hrs Laboratory Tests Test 09/13/17 17:04 09/13/17 20:24 09/14/17 05:55 09/14/17 07:41 Bedside Glucose 106 109 97 White Blood Count 5.6 Red Blood Count 3.51 L Hemoglobin 10.6 L Hematocrit 32.0 L Mean Corpuscular Volume 91.2 Mean Corpuscular Hemoglobin 30.2 Mean Corpuscular Hemoglobin Concent 33.1 Red Cell Distribution Width 15.1 H Platelet Count 257 Mean Platelet Volume 9.0 Neutrophils % 55.4 Lymphocytes % 34.0 Monocytes % 8.4 Eosinophils % 0.9 Basophils % 0.9 Nucleated Red Blood Cells % 0.0 Neutrophils # 3.1 Lymphocytes # 1.9 Monocytes # 0.5 Eosinophils # 0.1 Basophils # 0.1 Nucleated Red Blood Cells # 0.0 Sodium Level 136 Potassium Level 3.2 L Chloride Level 98 Carbon Dioxide Level 31 Anion Gap 10 Blood Urea Nitrogen 6 L Creatinine 0.81 Glucose Level 106 Calcium Level 8.3 L Total Bilirubin 0.3 Direct Bilirubin 0.00 Indirect Bilirubin 0.3 Aspartate Amino Transf (AST/SGOT) 30 Alanine Aminotransferase (ALT/SGPT) 32 Alkaline Phosphatase 69 Total Protein 5.5 L Albumin 2.1 L Globulin 3.40 H Albumin/Globulin Ratio 0.61 Test 09/14/17 09:40 09/14/17 11:52 Prothrombin Time 15.9 H Prothrombin Time Ratio 1.2 INR International Normalized Ratio 1.25 Activated Partial Thromboplast Time 32.4 Bedside Glucose 126 Medications Medications Current Medications Ondansetron HCl (Zofran Inj) 4 mg Q6H PRN IV NAUSEA AND/OR VOMITING Last administered on 09/13/17 17:53; Admin Dose 4 MG; Start 09/08/17 at 16:00 Acetaminophen (Tylenol Tab) 650 mg Q6H PRN PO PAIN LEVEL 1-3 OR FEVER; Start 09/08/17 at 16:00 Acetaminophen/ Hydrocodone Bitart ([place] (5/325)) 1 tab Q6H PRN PO MODERATE PAIN LEVEL 4-6 Last administered on 09/11/17 10:23; Admin Dose 1 TAB; Start 09/08/17 at 16:00 Morphine Sulfate (morphine) 2 mg Q4H PRN IV SEVERE PAIN LEVEL 7-10 Last administered on 09/09/17 17:44; Admin Dose 2 MG; Start 09/08/17 at 16:00 Docusate Sodium (Colace) 100 mg Q12H PRN PO CONSTIPATION; Start 09/08/17 at 16 :00 Magnesium Hydroxide (Milk Of Mag) 30 ml DAILY PRN PO CONSTIPATION; Start 09/08 at 16:00 Pantoprazole (Protonix Iv) 40 mg DAILY@06 IV Last administered on 09/14/17 05 :46; Admin Dose 40 MG; Start 09/09/17 at 06:00 Insulin Glargine (Lantus) 10 unit QAM SC Last administered on 09/14/17 12:08 ; Admin Dose 10 UNIT; Start 09/09/17 at 09:00 Lactulose (Enulose) 10 gm Q12 PRN PO constipation Last administered on 05:16; Admin Dose 10 GM; Start 09/08/17 at 16:00 Miscellaneous Information 1 ea NOTE XX ; Start 09/08/17 at 16:00 Glucose (Glutose) 15 gm Q15M PRN PO DECREASED GLUCOSE; Start 09/08/17 at 16:00 Glucose (Glutose) 22.5 gm Q15M PRN PO DECREASED GLUCOSE; Start 09/08/17 at 16: 00 Dextrose (D50w Syringe) 25 ml Q15M PRN IV DECREASED GLUCOSE; Start 09/08/17 at 16:00 Dextrose (D50w Syringe) 50 ml Q15M PRN IV DECREASED GLUCOSE; Start 09/08/17 at 16:00 Glucagon (Glucagen) 1 mg Q15M PRN IM DECREASED GLUCOSE; Start 09/08/17 at 16: 00 Glucose 15 gm 15 gm Q15M PRN BUCCAL DECREASED GLUCOSE; Start 09/08/17 at 16:00 Dextrose/Sodium Chloride 1,000 ml @ 40 mls/hr Q24H IV Last administered on 05:48; Admin Dose 40 MLS/HR; Start 09/08/17 at 23:00 Ceftriaxone Sodium 50 ml @ 100 mls/hr Q24H IVPB Last administered on 17:09; Admin Dose 100 MLS/HR; Start 09/09/17 at 17:30 Metronidazole (Flagyl 500 Mg (Pmx)) 100 ml @ 100 mls/hr Q8 IVPB Last administered on 09/14/17 14:31; Admin Dose 100 MLS/HR; Start 09/09/17 at 17: 30 Tramadol HCl (Ultram) 50 mg Q6H PRN PO PAIN; Start 09/09/17 at 17:30 Midodrine (Proamatine) 10 mg TID@,,17 PO Last administered on 09/14/17 12 :08; Admin Dose 10 MG; Start 09/09/17 at 18:03 Diagnostic Test (Pha) (Accu-Chek) 1 ea 02 XX ; Start 09/10/17 at 14:30 Mycophenolate Mofetil (Cellcept) 500 mg TID PO Last administered on 09/14/17 12:09; Admin Dose 500 MG; Start 09/11/17 at 21:00 REI FONSECA MD Sep 14, 2017 16:02
[2017-09-14] MEDS ORDERED: POTASSIUM CHLORIDE (SR) 20 MEQ TAB PO STA (16:04)
[2017-09-14] MEDS: CEFTRIAXONE 1 GM/50 ML (PMX) 50 ML IVPB SCH (17:29)
[2017-09-14 17:48] VITALS: BP 110/71
--- NOTE | 2017-09-14 19:32 | CONS ---
Date/Time of Note Date/Time of Note DATE: 09/14/17 TIME: 19:32 Assessment/Plan Assessment/Plan Additional Assessment/Plan Assessment/Plan Assessment/Plan Additional Assessment/Plan Assessment/Plan Additional Assessment/Plan IMPRESSION: 1. Multiple gallstones. 2. No evidence of choledocholithiasis. 3. Autoimmune hepatitis. 4. Ascites no evidence of spontaneous bacterial peritonitis. 5. Right upper quadrant pain PLAN: 1. To continue present care. If the pain is persistent, we will get a surgical consult from a symptomatic gallstone. 2. Start the patient on low dose of diuretics for fluid overload and lactulose. 3. Lap rola, patient declined it Discussed with the daughter Consultation Date/Type/Reason Admit Date/Time Sep 11, 2017 at 14:46 Initial Consult Date 09/09/17 Type of Consultation: surgical Referring Provider: REI FONSECA MD 24 HR Interval Summary Free Text/Dictation Persistent right upper quadrant and flank pain Exam/Review of Systems Vital Signs Vitals Vital Signs Date Time Temp Pulse Resp B/P Pulse Ox O2 Delivery O2 Flow Rate FiO2 09/14/17 17:48 110/71 09/14/17 14:29 98.1 16 96 09/14/17 08:12 85 09/13/17 14:27 Room Air Intake and Output 09/13/17 09/13/17 09/14/17 15:00 23:00 07:00 Intake Total 1170 ml 680 ml Output Total 700 ml 750 ml Balance 470 ml -70 ml Exam Constitutional: alert, oriented, well developed Psych: nl mood/affect, no complaints Head: atraumatic, normocephalic Eyes: EOMI, PERRL, nl conjunctiva, nl lids, nl sclera ENMT: nl external ears & nose, nl lips & teeth, nl nasal mucosa & septum Neck: non-tender, supple Respiratory: clear to auscultation, normal air movement Cardiovascular: nl pulses, regular rate and rhythm Gastrointestinal: nl liver, spleen, non-tender, soft Musculoskeletal: nl extremities to inspection, nl gait and stance Extremities: normal pulses Neurological: ABORIGINAL CEREMONIAL CELEBRANT II-XII intact, nl mental status, nl speech, nl strength Skin: nl turgor, No rash or lesions Lymph: nl lymph nodes Results Result Diagram: 09/14/17 0555 09/14/17 0555 Results 24 hrs Laboratory Tests Test 09/13/17 20:24 09/14/17 05:55 09/14/17 07:41 09/14/17 09:40 Bedside Glucose 109 97 White Blood Count 5.6 Red Blood Count 3.51 L Hemoglobin 10.6 L Hematocrit 32.0 L Mean Corpuscular Volume 91.2 Mean Corpuscular Hemoglobin 30.2 Mean Corpuscular Hemoglobin Concent 33.1 Red Cell Distribution Width 15.1 H Platelet Count 257 Mean Platelet Volume 9.0 Neutrophils % 55.4 Lymphocytes % 34.0 Monocytes % 8.4 Eosinophils % 0.9 Basophils % 0.9 Nucleated Red Blood Cells % 0.0 Neutrophils # 3.1 Lymphocytes # 1.9 Monocytes # 0.5 Eosinophils # 0.1 Basophils # 0.1 Nucleated Red Blood Cells # 0.0 Sodium Level 136 Potassium Level 3.2 L Chloride Level 98 Carbon Dioxide Level 31 Anion Gap 10 Blood Urea Nitrogen 6 L Creatinine 0.81 Glucose Level 106 Calcium Level 8.3 L Total Bilirubin 0.3 Direct Bilirubin 0.00 Indirect Bilirubin 0.3 Aspartate Amino Transf (AST/SGOT) 30 Alanine Aminotransferase (ALT/SGPT) 32 Alkaline Phosphatase 69 Total Protein 5.5 L Albumin 2.1 L Globulin 3.40 H Albumin/Globulin Ratio 0.61 Prothrombin Time 15.9 H Prothrombin Time Ratio 1.2 INR International Normalized Ratio 1.25 Activated Partial Thromboplast Time 32.4 Test 09/14/17 11:52 09/14/17 17:26 Bedside Glucose 126 122 Medications Medications Current Medications Ondansetron HCl (Zofran Inj) 4 mg Q6H PRN IV NAUSEA AND/OR VOMITING Last administered on 09/13/17 17:53; Admin Dose 4 MG; Start 09/08/17 at 16:00 Acetaminophen (Tylenol Tab) 650 mg Q6H PRN PO PAIN LEVEL 1-3 OR FEVER; Start 09/08/17 at 16:00 Acetaminophen/ Hydrocodone Bitart ([place] (5/325)) 1 tab Q6H PRN PO MODERATE PAIN LEVEL 4-6 Last administered on 09/11/17 10:23; Admin Dose 1 TAB; Start 09/08/17 at 16:00 Morphine Sulfate (morphine) 2 mg Q4H PRN IV SEVERE PAIN LEVEL 7-10 Last administered on 09/09/17 17:44; Admin Dose 2 MG; Start 09/08/17 at 16:00 Docusate Sodium (Colace) 100 mg Q12H PRN PO CONSTIPATION; Start 09/08/17 at 16 :00 Magnesium Hydroxide (Milk Of Mag) 30 ml DAILY PRN PO CONSTIPATION; Start 09/08 at 16:00 Pantoprazole (Protonix Iv) 40 mg DAILY@06 IV Last administered on 09/14/17 05 :46; Admin Dose 40 MG; Start 09/09/17 at 06:00 Insulin Glargine (Lantus) 10 unit QAM SC Last administered on 09/14/17 12:08 ; Admin Dose 10 UNIT; Start 09/09/17 at 09:00 Lactulose (Enulose) 10 gm Q12 PRN PO constipation Last administered on 05:16; Admin Dose 10 GM; Start 09/08/17 at 16:00 Miscellaneous Information 1 ea NOTE XX ; Start 09/08/17 at 16:00 Glucose (Glutose) 15 gm Q15M PRN PO DECREASED GLUCOSE; Start 09/08/17 at 16:00 Glucose (Glutose) 22.5 gm Q15M PRN PO DECREASED GLUCOSE; Start 09/08/17 at 16: 00 Dextrose (D50w Syringe) 25 ml Q15M PRN IV DECREASED GLUCOSE; Start 09/08/17 at 16:00 Dextrose (D50w Syringe) 50 ml Q15M PRN IV DECREASED GLUCOSE; Start 09/08/17 at 16:00 Glucagon (Glucagen) 1 mg Q15M PRN IM DECREASED GLUCOSE; Start 09/08/17 at 16: 00 Glucose 15 gm 15 gm Q15M PRN BUCCAL DECREASED GLUCOSE; Start 09/08/17 at 16:00 Dextrose/Sodium Chloride 1,000 ml @ 40 mls/hr Q24H IV Last administered on 05:48; Admin Dose 40 MLS/HR; Start 09/08/17 at 23:00 Ceftriaxone Sodium 50 ml @ 100 mls/hr Q24H IVPB Last administered on 17:29; Admin Dose 100 MLS/HR; Start 09/09/17 at 17:30 Metronidazole (Flagyl 500 Mg (Pmx)) 100 ml @ 100 mls/hr Q8 IVPB Last administered on 09/14/17 14:31; Admin Dose 100 MLS/HR; Start 09/09/17 at 17: 30 Tramadol HCl (Ultram) 50 mg Q6H PRN PO PAIN; Start 09/09/17 at 17:30 Midodrine (Proamatine) 10 mg TID@,13,17 PO Last administered on 09/14/17 17 :28; Admin Dose 10 MG; Start 09/09/17 at 18:03 Diagnostic Test (Pha) (Accu-Chek) 1 ea 02 XX ; Start 09/10/17 at 14:30 Mycophenolate Mofetil (Cellcept) 500 mg TID PO Last administered on 09/14/17 12:09; Admin Dose 500 MG; Start 09/11/17 at 21:00 LAURA RAMIREZ MD Sep 14, 2017 19:32
[2017-09-14 20:00] VITALS: BP 107/67; RESP 18
[2017-09-15 02:00] VITALS: BP 102/60; RESP 17
[2017-09-15] MEDS: ACCUCHECK 2 AM XX SCH (02:00)
[2017-09-15] MEDS: PANTOPRAZOLE 40 MG INJ IV SCH (05:27)
[2017-09-15] MEDS: metroNIDAZOLE 500 MG/NS (PMX) 100 ML IVPB SCH ×2 (05:27→13:27)
[2017-09-15] MEDS: FUROSEMIDE 40 MG TAB PO SCH (05:27)
[2017-09-15] MEDS: DEXTROSE 5%-0.45% NACL 1,000 ML IV SCH (06:26)
[2017-09-15] MEDS: Insulin NOVOLOG SS MILD Algorithm (SS with meals and bedtime) SC SCH ×2 (07:30→11:30)
[2017-09-15 07:44] VITALS: BP 104/70; RESP 18
[2017-09-15] MEDS: MYCOPHENOLATE 250 MG CAP PO SCH ×2 (09:09→13:27)
[2017-09-15] MEDS: MIDODRINE 5 MG TAB PO SCH ×2 (09:10→13:27)
[2017-09-15] MEDS: INSULIN GLARGINE [LANtus] 3 ML PEN SC SCH (09:11)
[2017-09-15] MEDS: HYDROCODONE/APAP (5/325) TAB PO PRN (09:14)
[2017-09-15] MEDS ORDERED: LIDOCAINE 1% (MPF) 5 ML VIAL ONE (10:19)
--- NOTE | 2017-09-15 11:11 | PN ---
Date/Time of Note Date/Time of Note DATE: 09/15/17 TIME: 11:06 Assessment/Plan Lines/Catheters IV C[facility]ter Type (from [facility]): Peripheral IV Assessment/Plan Chief Complaint/Hosp Course 1. Cholelithiasis (? symptomatic): Ct: There is a 3.8 mm calcification adjacent to the IVC, possibly a common bile duct stone, MRCP: no biliary dilatation or choledocholithiasis. Mazin B classification, she is at a significantly increased risk for perioperative morbidity/mortality. Patient has changed her mind again and is cancelling surgery again (2nd time) due to high risks. -pain management -diet/lifestyle optimization -soft diet and d/c planning 2. Liver cirrhosis (autoimmune) with significant ascites: s/p paracentesis -medical management for ascitic fluid management -gi f/u and tx 3. Abdominal pain multifactorial 2nd above: improved s/p paracentesis -as above 4. Hiatal hernia & GERD -diet/lifestyle optimization 5. Normocytic normochromic anemia: no acute bleed noted -monitor -transfuse as needed 6. Electrolyte imbalance -optimize lytes 7. Hypoalbuminemia: multifactorial (including liver disease) -optimize nutrition -gi liver optimization -supportive 8. DM & HTN -diet/med optimization Thank you. Patient seen and examined in collaboration with Dr. Shilo Escobar. Problems: Subjective 24 Hr Interval Summary S/p paracentesis. Pain improved but branner machine tender. Continues to refuse surgery. No fevers, chills, sob, congested cough, cp, palpitations, robbins, dizziness, n/v/d/ dysuria. Exam/Review of Systems Vital Signs Vitals Vital Signs Date Time Temp Pulse Resp B/P Pulse Ox O2 Delivery O2 Flow Rate FiO2 09/15/17 07:44 97.9 87 18 104/70 97 09/13/17 14:27 Room Air Intake and Output 09/14/17 09/14/17 09/15/17 15:00 23:00 07:00 Intake Total 780 ml 1140 ml Output Total 500 ml Balance 280 ml 1140 ml Exam Free Text/Dictation Constitutional: alert, oriented Psych: nl mood/affect Head: atraumatic, normocephalic Eyes: nl lids, nl sclera ENMT: mucosa pink and moist, nl nasal mucosa & septum Neck: non-tender, supple Respiratory: clear to auscultation, normal air movement Cardiovascular: nl pulses, regular rate and rhythm Gastrointestinal: non-tender, soft, min tenderness, No ascites (s/p paracentesis), Non distended Musculoskeletal: nl extremities to inspection, nl gait and stance Extremities: moves all 4, no edema Neurological: nl mental status, nl speech, nl strength Skin: nl turgor, No rash or lesions Lymphatics: Normal inguinal/cervical Results Result Diagram: 09/14/17 0555 09/14/17 0555 JOAO MORRIS NP Sep 15, 2017 11:11
--- NOTE | 2017-09-15 11:30 | RADRPT ---
PROCEDURE: Ultrasound guided paracentesis. CLINICAL INDICATION: Ascites and shortness of breath. COMPARISON: 09/08/2017. TECHNIQUE: The risks, benefits, and alternatives were explained to the patient and/or the patient's family, inc luding but not limited to bleeding, infection, pain, visceral or vascular damage, shock, and . The patient and/or the patient's family understood the risks and the alternatives and wished to pro ceed with the procedure. Informed written consent was obtained. A procedural time out was performed . The patient's name, date of , and procedure to be performed were verified. Utilizing ultrasound guidance, optimal location for entry to the peritoneal cavity was ascertained. The overlying skin was prepped and draped in the usual sterile fashion. Approximately 10 ml of 1% Xylocaine was injected locally for pain control. Using ultrasound guidance, an 8 [place] catheter wa s introduced into the peritoneal cavity in the right lower quadrant without difficulty. FINDINGS: Initial images demonstrate ascites. Approximately 5.6 liters of serous fluid was aspirated and disc arded. The patient tolerated the procedure well without complication. IMPRESSION: 1. Successful ultrasound-guided paracentesis. RPTAT: QQ .Robbie Geller MD, Date Time Electronically viewed and signed by .Robbie Geller MD, on 09/15/2017 11:30 .R/
[2017-09-15 13:33] VITALS: BP 87/54; PULSE 89
[2017-09-15 14:00] VITALS: BP 85/54; RESP 18
[2017-09-15 15:45] VITALS: BP 96/60; PULSE 83
--- NOTE | 2017-09-15 16:18 | PDOCDIS ---
Discharge Instructions DIAGNOSIS Discharge Diagnosis Cholecystitis , pt declined surgery ascites s/p paracentesis CONDITION Patient Condition: Fair HOME CARE INSTRUCTIONS: Diet Instructions: Modified FatSpecial Diet: Mech soft low fat low chol carb controlled FOLLOW UP/APPOINTMENTS Follow-up Plan f/u PCP in 2 weeks f/u Gi /Hepatology in 2 -3 weeks take abx for 3 more days Return to ER if has abdominal pain, nausea/vomiting/fevers and chills REI FONSECA MD Sep 15, 2017 16:18
[2017-09-15] MEDS ORDERED: METR250T PO (16:24)
[2017-09-15] MEDS ORDERED: CIPR-193 PO (16:24)
[2017-09-15] MEDS ORDERED: HYDR-3498 PO (16:24)
--- NOTE | 2017-09-15 17:22 | CONS ---
Date/Time of Note Date/Time of Note DATE: 09/15/17 TIME: 17:21 Assessment/Plan Assessment/Plan Additional Assessment/Plan Additional Assessment/Plan IMPRESSION: 1. Multiple gallstones. 2. No evidence of choledocholithiasis. 3. Autoimmune hepatitis. 4. Ascites no evidence of spontaneous bacterial peritonitis. 5. Right upper quadrant pain PLAN: 1. To continue present care. If the pain is persistent, we will get a surgical consult from a symptomatic gallstone. 2. Start the patient on low dose of diuretics for fluid overload and lactulose. 3. Lap rola, patient declined it Discussed with the daughter half an hour ago Follow-up in the office Consultation Date/Type/Reason Admit Date/Time Sep 11, 2017 at 14:46 Initial Consult Date 09/09/17 Type of Consultation: surgical Referring Provider: REI FONSECA MD 24 HR Interval Summary Constitutional: improved Exam/Review of Systems Vital Signs Vitals Vital Signs Date Time Temp Pulse Resp B/P Pulse Ox O2 Delivery O2 Flow Rate FiO2 09/15/17 15:45 83 96/60 09/15/17 14:00 98.0 18 97 09/13/17 14:27 Room Air Intake and Output 09/14/17 09/14/17 09/15/17 15:00 23:00 07:00 Intake Total 780 ml 1140 ml Output Total 500 ml Balance 280 ml 1140 ml Exam Constitutional: alert, oriented, well developed Psych: nl mood/affect, no complaints Head: atraumatic, normocephalic Eyes: EOMI, PERRL, nl conjunctiva, nl lids, nl sclera ENMT: nl external ears & nose, nl lips & teeth, nl nasal mucosa & septum Neck: non-tender, supple Respiratory: clear to auscultation, normal air movement Cardiovascular: nl pulses, regular rate and rhythm Gastrointestinal: nl liver, spleen, non-tender, soft Musculoskeletal: nl extremities to inspection, nl gait and stance Extremities: normal pulses 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
--- NOTE | 2017-09-16 07:59 | DS ---
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 The patient had refused to go to the gastro for paracente sis, so she started coming to ER at [facility]. She noticed increased abdominal distention , supposed to get her paracentesis today in the ER. On arrival to ED, vital signs with a blood pres sure 104/66, heart rate 96, temperature 99. White count was 7.5. Her BMP showed potassium 3.1, BUN of 10, creatinine 0.72. Patient had a CT of the abdomen and pelvis that showed nodular shrunken li [place] consistent with liver cirrhosis of concern, contracted gallbladder containing multiple gallstone s with 3.8 mm calcification in addition to IVC which may represent a CBD stone. Large amount of asc ites. No evidence of bowel obstruction. Mild to moderate hiatal hernia. The patient was given mor phine, Zofran and was admitted to med/surg unit. The patient was initially kept n.p.o., started on IV fluids and also had a paracentesis. Patient was started initially on IV Zosyn. The patient was seen by Dr. Josue for GI consultation. Had MRI of the abdomen, MRCP that showed gallbladder is par tially contracted, numerous gallstones, no biliary dilatation, no evidence of choledocholithiasis. Liver is severely stenotic, moderate to large amount of upper abdominal ascites, moderate hiatal her [place]. The patient was seen by Dr. Josue and there was no ERCP recommended. The patient was seen by Dr. Escobar for surgery consultation; however, the patient was going to go for surgery, but then at that moment after listening to the risks she refused surgery. After that, the patient was started on a diet again. However, the patient was intermittently having abdominal pain. Then, again she co nsented for surgery, but then on the day of surgery again she backed out and never went for any surg nico. The patient had a repeat paracentesis that was done on 09/15/2017 and had 5.6 liters of serosa nguineous fluid removed. Per surgery recommendations and per GI, the patient was started on low fat diet, which she tolerated and currently stable to be discharged home. Patient was instructed to re turn to the ER if she has worsening abdominal pain. ASSESSMENT AND PLAN: 1. This is cholecystitis with multiple gallstones. 2. No evidence of acute choledocholithiasis. 3. Recurrent ascites, status post paracentesis x2. 4. Autoimmune cirrhosis. 5. Hypertension on midodrine 6. Diabetes type 2. 7. Gastroesophageal reflux disease. 8. Hiatal hernia. 9. Degenerative disease of the cervical spine. DISCHARGE MEDICATIONS: 1. Patient was given prescription of [place] 5/325 p.o. q.6h. tablet, only 10 were given. 2. Cipro 250 b.i.d. for 3 more days. 3. Flagyl 250 t.i.d. for 3 more days to complete a 10-day course. DISCHARGE MEDICATIONS: Continue his home medications which were: 1. Aspirin 81. 2. Lasix 40 b.i.d. 3. Lantus 10 units q.a.m. 4. Lactulose. 5. Midodrine 10 t.i.d. 6. Mycophenolate 500 t.i.d. 7. Prilosec 20. 8. Zofran 8 mg. 9. Tramadol 50 mg p.o. q.6. The patient was instructed to return to the ER if she has worsening abdominal pain, nausea, vomiting , fevers and chills. Dictated By: REI MENCHACA/REI Conf#: [id number] DID#: [id number]
== END 2017-09-15 17:02 | disposition home or self-care (01) | DRG 445 ==
LOC: E/R 10:05 → PP2 15:51 → OBSVTOIN 09-11 14:46
PROVIDERS: ADMIT Internal Medicine; ATTEND Internal Medicine
PROC: 0W9G3ZZ Drainage of Peritoneal Cavity, Percutaneous Approach (ICD-10-PCS; principal; 2017-09-08)
PROC: 0W9G3ZZ Drainage of Peritoneal Cavity, Percutaneous Approach (ICD-10-PCS; 2017-09-15)
DX: K80.20 Calculus of gallbladder without cholecystitis without obstruction (principal); R18.8 Other ascites; I95.9 Hypotension, unspecified; K74.69 Other cirrhosis of liver; K75.4 Autoimmune hepatitis; E11.9 Type 2 diabetes mellitus without complications; D64.9 Anemia, unspecified; E88.09 Other disorders of plasma-protein metabolism, not elsewhere classified; K44.9 Diaphragmatic hernia without obstruction or gangrene; K21.9 Gastro-esophageal reflux disease without esophagitis; M50.30 Other cervical disc degeneration, unspecified cervical region; I70.0 Atherosclerosis of aorta; Z86.718 Personal history of other venous thrombosis and embolism; Z86.73 Personal history of transient ischemic attack (TIA), and cerebral infarction without residual deficits; Z79.899 Other long term (current) drug therapy
CPT/HCPCS: 36415; 71010; 74176; 74181; 80048; 80053; 82962; 83690; 83735; 84100; 84703; 85025; 85610; 85730; 86850; 86900; 86901; 87070; 87102; 87116; 89051; 96374; 96375; G0378; C9113; J0696; J1170; J1815; J2250; J2270; J2405; J2543; J3010; J3475; J3480; J7040; J7042; J7517; P9047

== ENCOUNTER 2017-09-24 09:46 | Emergency (ER) | END 2017-09-24 15:18 | disposition home or self-care (01) ==

== ENCOUNTER 2017-10-04 10:42 | Emergency (ER) | END 2017-10-04 17:47 | disposition home or self-care (01) ==

== ENCOUNTER 2017-10-12 09:46 | Emergency (ER) | END 2017-10-12 17:54 | disposition home or self-care (01) ==

== ENCOUNTER 2017-10-21 09:59 | Emergency (ER) | END 2017-10-21 18:20 | disposition home or self-care (01) ==

== ENCOUNTER 2017-10-31 09:59 | Inpatient (IN) | END 2017-11-02 16:45 | disposition home or self-care (01) | DRG 442 ==

== ENCOUNTER 2017-11-05 07:38 | Emergency (ER) | END 2017-11-05 13:57 | disposition home or self-care (01) ==

== ENCOUNTER 2017-11-12 09:31 | Emergency (ER) | END 2017-11-12 19:29 | disposition home or self-care (01) ==

== ENCOUNTER 2017-11-22 08:27 | Emergency (ER) | END 2017-11-22 12:34 | disposition home or self-care (01) ==

== ENCOUNTER 2017-11-26 17:21 | Emergency (ER) | END 2017-11-26 21:44 | disposition home or self-care (01) ==

== ENCOUNTER 2017-12-02 08:38 | Emergency (ER) | END 2017-12-02 17:28 | disposition home or self-care (01) ==

== ENCOUNTER 2017-12-13 08:09 | Emergency (ER) | END 2017-12-13 10:38 | disposition home or self-care (01) ==

== ENCOUNTER 2017-12-22 10:37 | Emergency (ER) | END 2017-12-22 16:39 | disposition home or self-care (01) ==

== ENCOUNTER 2017-12-31 10:27 | Emergency (ER) | END 2017-12-31 14:02 | disposition home or self-care (01) ==

== ENCOUNTER 2018-01-10 11:23 | Emergency (ER) | END 2018-01-10 19:07 | disposition home or self-care (01) ==

== ENCOUNTER 2018-01-20 08:53 | Emergency (ER) | END 2018-01-20 11:11 | disposition home or self-care (01) ==

== ENCOUNTER 2018-01-31 07:06 | Emergency (ER) | END 2018-01-31 13:11 | disposition home or self-care (01) ==

== ENCOUNTER 2018-05-04 08:48 | Emergency (ER) | END 2018-05-04 14:11 | disposition home or self-care (01) ==

== ENCOUNTER 2018-06-22 09:06 | Emergency (ER) | END 2018-06-22 12:29 | disposition home or self-care (01) ==

== ENCOUNTER 2018-07-22 10:01 | Emergency (ER) | END 2018-07-22 14:23 | disposition home or self-care (01) ==

== ENCOUNTER 2018-09-24 14:12 | Emergency (ER) | payer OTHER ==
[~2018-09-24] VITALS: Wt 64.0 kg
[~2018-09-24 14:12] MED LIST changes: -ASPI81TA3 PO; +CYCL10TA7 PO; -LACT10SO5 PO; +MED4DP PO; -MIDO10TA PO; -MIDO5TAB19 PO; +MYCO500T PO; -MYCO500T13 PO; +NAPR-985 PO; +ONDA4TAB8 PO; +POLY17PO6 PO; +SPIR50TA PO; -TRAM-40 PO; +TRAM50TA2 PO; -ZOF8 PO
[2018-09-24] MEDS ORDERED: SOD CHLORIDE 0.9% 500 ML IV STA (15:14)
[2018-09-24] MEDS ORDERED: HYDROmorphONE 1 MG/ML SYG IV STA (15:14)
[2018-09-24] MEDS ORDERED: ONDANSETRON 4 MG INJ IV STA (15:14)
--- NOTE | 2018-09-24 18:53 | NUR ---
US GUIDED RT PARACENTESIS PERFORMED PER DR ISAAC 3900 ML FLUID ASPIRATED AND DISCARDED PT TOLERATED PROCEDURE WELL
[2018-09-24] MEDS ORDERED: LIDOCAINE 1% (MPF) 5 ML VIAL ONE (19:11)
[2018-09-24] MEDS ORDERED: DICY10CA40 PO (19:32)
[2018-09-24] MEDS ORDERED: HYDR-4011 PO (19:32)
--- NOTE | 2018-09-24 19:37 | ERD ---
ER Documentation Chief Complaint Chief Complaint SENT FOR PARACENTISIS HPI This is a 63-year-old female who is here for paracentesis that is therapeutic. She also has right upper quadrant pain for the past 2 days. She thinks she has a history of gallstones and it feels similar. Pain is worse after eating. Pain is currently mild. It does radiate to the back. The pain is colicky. No chest pain shortness of breath no nausea vomiting diarrhea or blood in stool. ROS All systems reviewed and are negative except as per history of present illness. Medications Home Meds Active Scripts Hydrocodone/Acetaminophen ([place] 5-325 Tablet) 1 Each Tablet, 1 TAB PO Q6H PRN for PAIN, #20 TAB Prov:RYAN WEBB DO 09/24/18 Dicyclomine HCl (Dicyclomine HCl) 10 Mg Capsule, 20 MG PO TID PRN for ABDOMINAL CRAMPING, #20 CAP Prov:RYAN WEBB DO 09/24/18 Ondansetron Hcl* (Zofran*) 4 Mg Tablet, 4 MG PO Q6H for NAUSEA AND/OR VOMITING, #30 TAB Prov:MANUEL RANGEL MD 07/22/18 Polyethylene Glycol* (Miralax*) 17 Gm Powd.pack, 17 GM PO DAILY, #7 Prov:MANUEL RANGEL MD 07/22/18 Tramadol HCl (Tramadol HCl) 50 Mg Tablet, 50 MG PO Q4 PRN for PAIN, #20 TAB Prov:ZEUS STYLES PA-C 01/31/18 Methylprednisolone* (Medrol* DOSE PACK) 4 Mg/Dose-Pack Tab.ds.pk, 4 MG PO . DIRECTED, #1 PACKET Prov:ZEUS STYLES PA-C 01/31/18 Naproxen* (Naprosyn*) 500 Mg Tablet, 500 MG PO BID PRN for PAIN AND/OR INFLAMMATION, #30 TAB Prov:ZEUS STYLES PA-C 01/31/18 Cyclobenzaprine Hcl* (Cyclobenzaprine Hcl*) 10 Mg Tablet, 10 MG PO TID, #15 TAB Prov:ZEUS STYLES PA-C 01/31/18 Reported Medications Spironolactone* (Aldactone*) 50 Mg Tablet, 50 MG PO DAILY, #30 TAB 11/26/17 Omeprazole* (Omeprazole*) 20 Mg Capsule.dr, 20 MG PO DAILY, #30 CAP 11/26/17 Mycophenolate Mofetil* (Cellcept*) 500 Mg Tablet, 500 MG PO BID, #60 TAB 11/26/17 Insulin Glargine* (Lantus*) 100 Unit/Ml Soln, 10 UNIT SC QAM, #1 VIAL 11/26/17 Furosemide* (Furosemide*) 40 Mg Tablet, 40 MG PO BID, TAB 11/26/17 Allergies Allergies: Coded Allergies: No Known Allergy (Unverified , 09/24/18) PMhx/Soc History of Surgery: Yes (2 APPENDECTOMY CARPAL TUNNEL MULTIPLE PARACENTESIS LIVER BIOPSY) Anesthesia Reaction: No Hx Neurological Disorder: Yes (STROKE, HEPATIC ENCEPHALOPATHY) Hx Respiratory Disorders: No Hx Cardiac Disorders: Yes (HYPOTENSION) Hx Psychiatric Problems: Yes (ANXIETY) Hx Miscellaneous Medical Probl: Yes (LIVER CIRRHOSIS ASCITES, coccyx fx, DM) Hx Alcohol Use: No Hx Substance Use: No Hx Tobacco Use: No Smoking Status: Never smoker FmHx Family History: No coronary disease Physical Exam Vitals Vital Signs Date Temp Pulse Resp B/P (MAP) Pulse Ox O2 O2 Flow FiO2 Time Delivery Rate 09/24/18 98.4 78 18 135/68 99 14:22 (90) Physical Exam Const: Well-developed, well-nourished Head: Atraumatic, normocephalic Eyes: Normal Conjunctiva, PERRLA, EOMI, normal sclera, no nystagmus ENT: Normal External Ears, Nose and Mouth, moist mucus membranes. Neck: Full range of motion. No meningismus, no lymphadenopathy. Resp: Clear to auscultation bilaterally, no wheezing, rhonchi, rales Cardio: Regular rate and rhythm, no murmurs, S1 S2 present Abd: Soft, ascites with right upper quadrant tenderness moderate normal bowel sounds, no guarding or rebound, no pulsitile abdominal masses or bruits Skin: No petechiae or rashes, no ecchymosis , no maculopapular rash Back: No midline or flank tenderness Ext: No cyanosis, or edema, FROM x 4, normal inspection, neuro vascularly intact x 4 Neur: Awake and alert, STR 5/5 x 4, sensation intact x 4, no focal findi ngs, cerebellum intact Psych: Normal Mood and Affect Result Diagram: 09/24/18 1531 09/24/18 1531 Results 24 hrs Laboratory Tests Test 09/24/18 15:31 White Blood Count 4.7 10^3/ul Red Blood Count 3.62 10^6/ul Hemoglobin 9.6 g/dl Hematocrit 30.6 % Mean Corpuscular Volume 84.5 fl Mean Corpuscular Hemoglobin 26.5 pg Mean Corpuscular Hemoglobin Concent 31.4 g/dl Red Cell Distribution Width 16.4 % Platelet Count 186 10^3/UL Mean Platelet Volume 9.1 fl Immature Granulocytes % 0.200 % Neutrophils % 59.7 % Lymphocytes % 28.8 % Monocytes % 8.8 % Eosinophils % 1.9 % Basophils % 0.6 % Nucleated Red Blood Cells % 0.0 /100WBC Immature Granulocytes # 0.010 10^3/ul Neutrophils # 2.8 10^3/ul Lymphocytes # 1.4 10^3/ul Monocytes # 0.4 10^3/ul Eosinophils # 0.1 10^3/ul Basophils # 0.0 10^3/ul Nucleated Red Blood Cells # 0.0 10^3/ul Prothrombin Time 13.3 Sec Prothrombin Time Ratio 1.0 INR International Normalized Ratio 1.00 Activated Partial Thromboplast Time 30.9 Sec Sodium Level 140 mmol/L Potassium Level 4.3 mmol/L Chloride Level 106 mmol/L Carbon Dioxide Level 25 mmol/L Anion Gap 9 Blood Urea Nitrogen 12 mg/dl Creatinine 0.59 mg/dl Est Glomerular Filtrat Rate mL/min > 60 mL/min Glucose Level 205 mg/dl Calcium Level 9.3 mg/dl Total Bilirubin 0.2 mg/dl Direct Bilirubin 0.00 mg/dl Indirect Bilirubin 0.2 mg/dl Aspartate Amino Transf (AST/SGOT) 31 IU/L Alanine Aminotransferase (ALT/SGPT) 11 IU/L Alkaline Phosphatase 156 IU/L Total Protein 7.2 g/dl Albumin 3.5 g/dl Globulin 3.70 g/dl Albumin/Globulin Ratio 0.94 Lipase 85 U/L Current Medications Medications Dose Sig/Rohit Start Time Status Last (Trade) Ordered Route PRN Stop Time Admin Dose Reason Admin Sodium 500 ml @ Q1H STAT 09/24/18 DC 09/24/18 Chloride 500 mls/hr IV 15:14 15:47 09/24/18 16:13 1 mg ONCE STAT 09/24/18 DC 09/24/18 Hydromorphone IV 15:14 15:39 HCl 09/24/18 (Dilaudid) 15:15 Ondansetron 4 mg ONCE STAT 09/24/18 DC 09/24/18 HCl (Zofran IV 15:14 15:35 Inj) 09/24/18 15:15 Lidocaine 5 ml STK-MED 09/24/18 DC (Xylocaine ONCE .ROUTE 19:11 1% (Mpf)) 09/24/18 19:12 Procedures/MDM Ordering MD: RYAN WEBB DO Location: E/R Room/Bed: PROCEDURE: US Abdomen. CLINICAL INDICATION: Abdominal Pain TECHNIQUE: Multiple real-time images were acquired of the patient's abdomen and retroperitoneum utilizing a high resolution transducer. COMPARISON: 07/22/2018 FINDINGS: The pancreas is poorly visualized secondary to overlying bowel gas. The liver has a nodular irregular contour anteriorly suggesting cirrhosis. Flow in the main portal vein is directed towards the liver. Gallstones are seen within the gallbladder. There is no evidence of gallbladder wall thickening. The technologist reports a negative sonographic Pradhan's sign. The common bile duct measures 1.4 mm in maximal dimension. No free fluid is identified. There is moderate abdominal ascites. The right kidney is normal in appearance without evidence of hydronephrosis or mass. The right kidney measures 10.3 cm in length. IMPRESSION: 1. Cholelithiasis. The gallbladder is otherwise sonographically unremarkable. 2. Nodular irregular contour to the liver suggesting cirrhosis. 3. Moderate abdominal ascites in the right upper quadrant. RPTAT:AAJJ Physician Aguilar Date Time Electronically viewed and signed by Noah Cooper Physician on 09/24/2018 17:57 MC/ CC: RYAN WEBB DO [id number] No evidence of biliary obstruction. Patient is feeling better will give her warning signs to return. Successful therapeutic paracentesis Patient feels much better at this time, and vital signs are normal, symptoms have improved. I did give strict instructions to return to the ED if symptoms continue or worsen, patient will otherwise follow-up with primary care physician. Patient understood instructions and agreed to plan. Disclaimer: Inadvertent spelling and grammatical errors are likely due to EHR/dictation software use and do not reflect on the overall quality of patient care. Also, please note that the electronic time recorded on this note does not necessarily reflect the actual time of the patient encounter. Departure Diagnosis: Primary Impression: Gallstones Additional Impression: Ascites Ascites type: other type Qualified Codes: R18.8 - Other ascites Condition: Stable Patient Instructions: Gallstones, Ascites RYAN WEBB DO Sep 24, 2018 19:37
[2018-09-24 19:41] VITALS: BP 128/74; PULSE 72; RESP 18
== END 2018-09-24 19:43 | disposition home or self-care (01) ==
LOC: E/R 14:12
DX: K80.20 Calculus of gallbladder without cholecystitis without obstruction (principal); E11.9 Type 2 diabetes mellitus without complications; R18.8 Other ascites; Z79.4 Long term (current) use of insulin
CPT/HCPCS: 76705; 80053; 83690; 85025; 85610; 85730; J1170; J2405; J7040; Z7610; 36415; 96374; 96375

== ENCOUNTER 2018-12-12 09:32 | Inpatient (IN) | payer OTHER ==
[~2018-12-12] VITALS: Ht 162.6 cm; Wt 54.7 kg
[~2018-12-12 09:32] MED LIST changes: +DICY10CA40 PO; +HYDR-4011 PO
[2018-12-12 09:47] VITALS: Ht 162.6 cm; Wt 54.7 kg
[2018-12-12] MEDS ORDERED: SOD CHLORIDE 0.9% 500 ML IV STA (12:10)
[2018-12-12] MEDS ORDERED: HYDROmorphONE 1 MG/ML SYG IV STA (12:10)
[2018-12-12] MEDS ORDERED: ONDANSETRON 4 MG INJ IV STA (12:10)
--- NOTE | 2018-12-12 12:13 | ERD ---
ER Documentation Chief Complaint Chief Complaint Complains of abdominal pain and vomiting Hx of Cirrhosis HPI This is a 63-year-old female with a history of cirrhosis to the liver is complaining of right upper quadrant pain off and on but mostly happens before she vomits. She is having intractable vomiting for the past 3 days is unable to keep down anything including water. No fever and she is having diarrhea that is nonbloody. Vomit is nonbloody nonbilious. No chest pain or shortness of breath ROS All systems reviewed and are negative except as per history of present illness. Medications Home Meds Active Scripts Hydrocodone/Acetaminophen ([place] 5-325 Tablet) 1 Each Tablet, 1 TAB PO Q6H PRN for PAIN, #20 TAB Prov:RYAN WEBB DO 09/24/18 Dicyclomine HCl (Dicyclomine HCl) 10 Mg Capsule, 20 MG PO TID PRN for ABDOMINAL CRAMPING, #20 CAP Prov:RYAN WEBB DO 09/24/18 Ondansetron Hcl* (Zofran*) 4 Mg Tablet, 4 MG PO Q6H for NAUSEA AND/OR VOMITING, #30 TAB Prov:MANUEL RANGEL MD 07/22/18 Polyethylene Glycol* (Miralax*) 17 Gm Powd.pack, 17 GM PO DAILY, #7 Prov:MANUEL RANGEL MD 07/22/18 Tramadol HCl (Tramadol HCl) 50 Mg Tablet, 50 MG PO Q4 PRN for PAIN, #20 TAB Prov:ZEUS STYLES PA-C 01/31/18 Methylprednisolone* (Medrol* DOSE PACK) 4 Mg/Dose-Pack Tab.ds.pk, 4 MG PO . DIRECTED, #1 PACKET Prov:ZEUS STYLES PA-C 01/31/18 Naproxen* (Naprosyn*) 500 Mg Tablet, 500 MG PO BID PRN for PAIN AND/OR I NFLAMMATION, #30 TAB Prov:ZEUS STYLES PA-C 01/31/18 Cyclobenzaprine Hcl* (Cyclobenzaprine Hcl*) 10 Mg Tablet, 10 MG PO TID, #15 TAB Prov:ZEUS STYLES PA-C 01/31/18 Reported Medications Spironolactone* (Aldactone*) 50 Mg Tablet, 50 MG PO DAILY, #30 TAB 11/26/17 Omeprazole* (Omeprazole*) 20 Mg Capsule.dr, 20 MG PO DAILY, #30 CAP 11/26/17 Mycophenolate Mofetil* (Cellcept*) 500 Mg Tablet, 500 MG PO BID, #60 TAB 11/26/17 Insulin Glargine* (Lantus*) 100 Unit/Ml Soln, 10 UNIT SC QAM, #1 VIAL 11/26/17 Furosemide* (Furosemide*) 40 Mg Tablet, 40 MG PO BID, TAB 11/26/17 Allergies Allergies: Coded Allergies: No Known Allergy (Unverified , 09/24/18) PMhx/Soc History of Surgery: Yes (2 APPENDECTOMY CARPAL TUNNEL MULTIPLE PARACENTESIS LIVER BIOPSY) Anesthesia Reaction: No Hx Neurological Disorder: Yes (STROKE, HEPATIC ENCEPHALOPATHY) Hx Respiratory Disorders: No Hx Cardiac Disorders: Yes (HYPOTENSION) Hx Psychiatric Problems: Yes (ANXIETY) Hx Miscellaneous Medical Probl: Yes (LIVER CIRRHOSIS ASCITES, coccyx fx, DM) Hx Alcohol Use: No Hx Substance Use: No Hx Tobacco Use: No FmHx Family History: No coronary disease Physical Exam Vitals Vital Signs Date Temp Pulse Resp B/P (MAP) Pulse Ox O2 O2 Flow FiO2 Time Delivery Rate 12/12/18 98.7 98 20 92/56 (68) 97 09:47 Physical Exam Const: Well-developed, well-nourished Head: Atraumatic, normocephalic Eyes: Normal Conjunctiva, PERRLA, EOMI, normal sclera, no nystagmus ENT: Normal External Ears, Nose and Mouth, moist mucus membranes. Neck: Full range of motion. No meningismus, no lymphadenopathy. Resp: Clear to auscultation bilaterally, no wheezing, rhonchi, rales Cardio: Regular rate and rhythm, no murmurs, S1 S2 present Abd: Soft, epigastric and right upper quadrant tenderness, non distended. Normal bowel sounds, no guarding or rebound, no pulsitile abdominal masses or bruits Skin: No petechiae or rashes, no ecchymosis , no maculopapular rash Back: No midline or flank tenderness Ext: No cyanosis, or edema, FROM x 4, normal inspection, neurovascularly intact x 4 Neur: Awake and alert, STR 5/5 x 4, sensation intact x 4, no focal findings, cerebellum intact Psych: Normal Mood and Affect Result Diagram: 12/12/18 1235 12/12/18 1235 Results 24 hrs Laboratory Tests Test 12/12/18 12:35 White Blood Count 5.4 10^3/ul Red Blood Count 4.12 10^6/ul Hemoglobin 10.4 g/dl Hematocrit 32.9 % Mean Corpuscular Volume 79.9 fl Mean Corpuscular Hemoglobin 25.2 pg Mean Corpuscular Hemoglobin Concent 31.6 g/dl Red Cell Distribution Width 17.4 % Platelet Count 139 10^3/UL Mean Platelet Volume 9.7 fl Immature Granulocytes % 0.600 % Neutrophils % 78.1 % Segmented Neutrophils % (Manual) 46 % Band Neutrophils % (Manual) 32 % Lymphocytes % 12.5 % Lymphocytes % (Manual) 6 % Reactive Lymphocytes % (Manual) 8 % Monocytes % 6.5 % Monocytes % (Manual) 5 % Eosinophils % 2.1 % Eosinophils % (Manual) 3 % Basophils % 0.2 % Nucleated Red Blood Cells % 0.0 /100WBC Immature Granulocytes # 0.030 10^3/ul Neutrophils # 4.2 10^3/ul Neutrophils # (Manual) 2.6 10^3/ul Band Neutrophils # 1.7 10^3/ul Lymphocytes (Manual) 0.3 10^3/ul Lymphocytes # 0.7 10^3/ul Reactive Lymphocytes # 0.4 10^3/ul Monocytes # 0.4 10^3/ul Monocytes # (Manual) 0.2 10^3/ul Eosinophils # 0.1 10^3/ul Basophils # 0.0 10^3/ul Nucleated Red Blood Cells # 0.0 10^3/ul Platelet Estimate NORMAL Polychromasia 3+ Poikilocytosis 1+ Anisocytosis 1+ Microcytosis 1+ Urine Color JOANNA Urine Clarity SLIGHTLY CLOUDY Urine pH 5.0 Urine Specific [place] 1.018 Urine Ketones NEGATIVE mg/dL Urine Nitrite NEGATIVE mg/dL Urine Bilirubin NEGATIVE mg/dL Urine Urobilinogen 2+ mg/dL Urine Leukocyte Esterase 3+ Shawn/ul Urine Microscopic RBC 4 /HPF Urine Microscopic WBC 83 /HPF Urine Squamous Epithelial Cells MANY /HPF Urine Renal Epithelial Cells FEW /HPF Urine Bacteria MODERATE /HPF Urine Hemoglobin NEGATIVE mg/dL Urine Glucose NEGATIVE mg/dL Urine Total Protein 1+ mg/dl Sodium Level 135 mmol/L Potassium Level 3.6 mmol/L Chloride Level 99 mmol/L Carbon Dioxide Level 26 mmol/L Anion Gap 10 Blood Urea Nitrogen 26 mg/dl Creatinine 0.84 mg/dl Est Glomerular Filtrat Rate mL/min > 60 mL/min Glucose Level 203 mg/dl Calcium Level 9.9 mg/dl Total Bilirubin 3.1 mg/dl Direct Bilirubin 1.90 mg/dl Indirect Bilirubin 1.2 mg/dl Aspartate Amino Transf (AST/SGOT) 75 IU/L Alanine Aminotransferase (ALT/SGPT) 50 IU/L Alkaline Phosphatase 241 IU/L Total Protein 8.0 g/dl Albumin 3.9 g/dl Globulin 4.10 g/dl Albumin/Globulin Ratio 0.95 Lipase 37 U/L Current Medications Medications Dose Sig/Rohit Start Time Status Last (Trade) Ordered Route PRN Stop Time Admin Dose Reason Admin Sodium 500 ml @ Q1H STAT 12/12/18 DC 12/12/18 Chloride 500 mls/hr IV 12:10 12:31 12/12/18 13:09 1 mg ONCE STAT 12/12/18 DC 12/12/18 Hydromorphone IV 12:10 12:31 HCl 12/12/18 12:12 (Dilaudid) Ondansetron 4 mg ONCE STAT 12/12/18 DC 12/12/18 HCl (Zofran IV 12:10 12:31 Inj) 12/12/18 12:12 Iohexol 150 ml STK-MED 12/12/18 DC 12/12/18 (Omnipaque ONCE .ROUTE 13:28 13:30 300mg/ ml) 12/12/18 13:29 Sodium 100 ml @ ud STK-MED 12/12/18 DC 12/12/18 Chloride ONCE .ROUTE 13:28 13:30 12/12/18 13:29 Sodium 1,000 ml @ [id number] IV 12/12/18 Chloride 80 mls/hr 14:34 12/13/18 03:03 Ondansetron 4 mg BRIDGE ORDER 12/12/18 HCl (Zofran PRN IV 15:00 Inj) NAUSEA/VOMITI 12/13/18 14:59 NG 650 mg ER BRIDGE 12/12/18 Acetaminophen PRN PO 15:00 (Tylenol .MILD PAIN 12/13/18 14:59 Tab) 1-3 OR TEMP Ertapenem 1 100 ml @ ONCE ONCE 12/12/18 gm/ Sodium 200 mls/hr IVPB 15:00 Chloride 12/12/18 15:29 Procedures/MDM Ordering MD: RYAN WEBB DO Location: E/R Room/Bed: PROCEDURE: US Abdomen. CLINICAL INDICATION: abdominal pain TECHNIQUE: Multiple real-time images were acquired of the patient's right upper quadrant abdomen and retroperitoneum utilizing a high resolution transducer. COMPARISON: 11/16/2018, 09/15/2018 FINDINGS: The liver demonstrates heterogeneous and coarse echogenicity. The liver is normal in size. There is a questionable 2.4 cm hypoechoic mass in the left lobe of the liver.. The liver measures 12.8 cm in length. The portal vein is patent with normal direction of flow. No intrahepatic biliary dilatation is seen. Multiple calcified gallstones are identified within the gallbladder. There is mild gallbladder wall thickening, measuring 3.4 mm. The common bile duct measures 6.6 mm in maximal dimension. The visualized portions of the pancreas are unremarkable. The tail of the pancreas is not seen. There is a small amount of ascites. The right kidney is normal in size, and demonstrate normal echogenicity and cor tical thickness. The right kidney measures 11.2 cm in long dimension. There is no evidence of hydronephrosis. There are no kidney stones. RPTAT: AA IMPRESSION: Liver cirrhosis with a questionable 2.4 cm hypoechoic mass in the left lobe of the liver. Multiple stones within the gallbladder with mild gallbladder wall thickening. Small amount of ascites. .Yovani Munroe MD, Date Time Electronically viewed and signed by .Yovani Munroe MD, on 12/12/2018 13:12 .S/ CC: RYAN WEBB DO [id number] MR #: [id number] DOS: 12/12/18 1210 Ordering MD: RYAN WEBB DO Location: E/R Room/Bed: PROCEDURE: CT Abdomen and Pelvis with intravenous contrast. CLINICAL INDICATION: Abdominal Pain , vomiting, history of cirrhosis TECHNIQUE: CT scan of the abdomen and pelvis with intravenous contrast was performed on a multi-detector high-resolution CT scanner. The patient was scanned following the uncomplicated intravenous administration of 85 cc of Omnipaque-300 contrast. Coronal and sagittal reformatted images were obtained from the axial source images. DICOM images are available. CTDIvol 6.56 mGy, and DLP 339.23 mGy.cm. One or more of the following dose reduction techniques were used: - Automated exposure control. - Adjustment of the mA and/or kV according to patient size. - Use of iterative reconstruction technique. COMPARISON: CT abdomen pelvis 07/22/2018 FINDINGS: Lower thorax: Para esophageal variceal vessels. Liver: Redemonstrated nodular surface contour of the liver compatible with cirrhosis. Filling defect in the superior mesenteric vein and portal splenic confluence may represent mixing artifact. Biliary: Cholelithiasis. There is a calcification at the distal common bile duct, not seen on prior CT, likely representing choledocholithiasis. There is mild common bile duct dilatation measuring 10 mm in diameter. No intrahepatic biliary dilatation. Pancreas: Normal. Spleen: Normal. Adrenal Glands: Normal. Urinary: Normal. Gastrointestinal: Mild diffuse bowel wall thickening likely related to third spacing of volume. No evidence of bowel obstruction. Lymph nodes: Borderline prominent left periaortic lymph nodes measuring up to 10 mm. Vascular: There are atherosclerotic calcifications of the aorta and iliac branches, without evidence of aneurysm. Paraesophageal, perigastric, perisplenic collateral vessels. Peritoneum/mesentery: Small volume ascites. No free air. A few stable scattered omental calcifications, likely related to prior inflammation.. Reproductive organs: Normal. Musculoskeletal: Degenerative changes of the spine. Stable Schmorl's nodes and mild compression deformities of L4 and L5. IMPRESSION: Cholelithiasis. Focal calcification in the distal common bile duct, not seen on prior exam, likely represents choledocholithiasis. Mild common bile duct dilatation up to 10 mm. Correlate with MRCP or ERCP. Hepatic cirrhosis. Small volume ascites and portosystemic collateral vessels suggestive of portal hypertension. Filling defect in the superior mesenteric vein and portal splenic confluence may represent mixing artifact. Portal vein was patent on Doppler evaluation of the same day. RPTAT: KK Gautam Cm, Physician Date Time Electronically viewed and signed by Gautam Cm, Physician on 12/12/2018 14:03 HtN/ CC: RYAN WEBB DO [id number] Patient has a bandemia of 32%, elevated bilirubin and liver function test. This is new. I will order MRCP admitted to the hospital for presumed cholecystitis or choledocholithiasis. I spoke with -he will review MRCP to see if there is inflammation or stone stuck in the duct. She may need surgical intervention however at this time it is unclear Departure Diagnosis: Primary Impression: Cholecystitis Additional Impression: Gallstones Condition: Stable RYAN WEBB DO Dec 12, 2018 12:13
[2018-12-12] MEDS ORDERED: SOD CHLORIDE 0.9% 100 ML ONE (13:28)
[2018-12-12] MEDS ORDERED: IOHEXOL 300MG/ML 150 ML BTL ONE (13:28)
[2018-12-12] MEDS ORDERED: SOD CHLORIDE 0.9% 1,000 ML IV SCH (14:34)
[2018-12-12] MEDS ORDERED: ERTAPENEM SODIUM 1 GM in SOD CHLORIDE 0.9% 100 ML IVPB ONE (15:00)
[2018-12-12] MEDS ORDERED: ACETAMINOPHEN 325 MG TAB PO PRN ×2 (15:00→17:00)
[2018-12-12] MEDS ORDERED: ONDANSETRON 4 MG INJ IV PRN ×2 (15:00→17:00)
[2018-12-12] MEDS ORDERED: INSU100I33 SC (16:15)
[2018-12-12] MEDS ORDERED: FURO40TA4 PO (16:16)
[2018-12-12] MEDS ORDERED: METO2.5T PO (16:18)
[2018-12-12] MEDS ORDERED: SPIR50TA4 PO (16:19)
[2018-12-12] MEDS ORDERED: LACT10SO53 PO (16:19)
[2018-12-12] MEDS ORDERED: MYCO500T3 PO (16:20)
[2018-12-12] MEDS ORDERED: LISI-313 PO (16:20)
[2018-12-12] MEDS ORDERED: OMEP40CA6 PO (16:21)
[2018-12-12] MEDS ORDERED: MIDO10TA PO (16:21)
[2018-12-12] MEDS ORDERED: ALEN70TA5 PO (16:21)
[2018-12-12] MEDS ORDERED: ESCI10TA48 PO (16:22)
[2018-12-12] MEDS ORDERED: ATOR40TA68 PO (16:22)
--- NOTE | 2018-12-12 16:40 | QN ---
Documentation Comment pt seen and examined REI FONSECA MD Dec 12, 2018 16:40
--- NOTE | 2018-12-12 16:49 | CONS ---
DATE OF ADMISSION: 12/12/2018 DATE OF CONSULTATION: TYPE OF CONSULTATION: Gastroenterology. HISTORY OF PRESENT ILLNESS: The patient is a 63-year-old female with a history of cirrhosis of liver , came to the emergency room complaining of pain in the right upper quadrant associated with nausea, vomiting and diarrhea of 3 days' duration. No fever, no chills. She is unable to keep anything down for the last 3 days. No or SAUSAGE GRINDER problem. No chest pain, no shortness of breath. REVIEW OF SYSTEMS: Negative. HOME MEDICATIONS: Reviewed. She is on: 1. Erhard. 2. Dicyclomine. 3. Tramadol. 4. Naproxen. 5. Cyclobenzaprine. 6. Spironolactone. 7. Omeprazole. 8. CellCept. 9. Insulin. 10. Lasix. ALLERGIES: NO KNOWN DRUG ALLERGIES. PAST SURGICAL HISTORY: Two C-sections, appendiceal surgery, multiple paracenteses. PAST MEDICAL HISTORY: CVA, hepatic encephalopathy, anxiety, diabetes mellitus. PHYSICAL EXAMINATION: GENERAL: Moderately built, nourished, not in distress. VITAL SIGNS: Stable. HEENT: Unremarkable. NECK: Supple. No thyromegaly, no lymphadenopathy. CARDIOVASCULAR: No murmur, gallop or click. LUNGS: Clear. ABDOMEN: Benign. EXTREMITIES: No edema. CENTRAL NERVOUS SYSTEM: Grossly within normal limits. NEUROLOGIC: She is alert, oriented to time, place and space. No hepatic flap. LABORATORY DATA: Hematocrit is 32, microcytic hypochromic picture, mild thrombocytopenia with platel et count of 139. WBC is within normal limits. Bilirubin is elevated to 3.1, alkaline phosphatase 24 1. DIAGNOSTIC DATA: She had a CAT scan of the abdomen and pelvis which showed stone in the bile duct an d sonogram showed multiple stones in the gallbladder with cirrhosis of liver. IMPRESSION: 1. Abdominal pain with nausea and vomiting, most probably related to biliary colic. CAT scan demons trated the bile duct stone. 2. 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 3. Diabetes mellitus. 4. Microcytic hypochromic anemia. 5. Mild thrombocytopenia. 6. Sepsis. The patient has got bandemia with bands of 32%. PLAN: At this point, she got IV antibiotic in the ER. We will continue with Zosyn. I will ask the ER physician to get MRCP done. We will get PT, PTT to make sure the patient does not have coagulopat hy and tentatively, I have scheduled the patient for ERCP tomorrow. Dictated By: LAURA JOHNSTON/REI Conf#: [id number] DID#: [id number] CC: REI FONSECA; NERI FABIAN MD;*EndCC*
[2018-12-12] MEDS ORDERED: NACL 0.9% 3 ML SYG IV SCH (17:00)
[2018-12-12] MEDS ORDERED: MAGNESIUM HYDROXIDE 30ML CUP PO PRN (17:00)
[2018-12-12 17:54] VITALS: BP 94/58; PULSE 84; RESP 17
[2018-12-12] MEDS ORDERED: GLUCOSE GEL 15 GRAM TUBE BUCCAL PRN (18:00)
[2018-12-12] MEDS ORDERED: GLUCAGON 1 MG INJ IM PRN (18:00)
[2018-12-12] MEDS ORDERED: GLUCOSE GEL 15 GRAM TUBE PO PRN ×2 (18:00)
[2018-12-12] MEDS ORDERED: INSULIN ASPART [NOVOLOG] 3 ML PEN SC SCH (18:00)
[2018-12-12] MEDS ORDERED: DEXTROSE 50% 50 ML SYRINGE IV PRN ×2 (18:00)
[2018-12-12] MEDS: SOD CHLORIDE 0.45% 1,000 ML IV SCH ×2 (19:30→23:27)
[2018-12-12 20:00] VITALS: BP 97/64; PULSE 79; RESP 18
[2018-12-12] MEDS: MIDODRINE 5 MG TAB PO SCH (21:00)
[2018-12-12] MEDS: ATORVASTATIN 40 MG TAB PO SCH (21:00)
[2018-12-12] MEDS: PIPER-TAZO 3.375 GM IV (PMX) 100 ML IVPB SCH (23:28)
[2018-12-13] VITALS (18 sets, daily range): BP systolic 90–119; BP diastolic 50–65; PULSE 75–96; RESP 16–21
[2018-12-13] MEDS ORDERED: ACCU-CHEK XX SCH (02:00)
[2018-12-13] MEDS ORDERED: PANTOPRAZOLE 40 MG INJ ONE (04:50)
[2018-12-13] MEDS: PANTOPRAZOLE 40 MG INJ IV SCH (05:00)
[2018-12-13] MEDS: PIPER-TAZO 3.375 GM IV (PMX) 100 ML IVPB SCH ×3 (05:00→21:47)
[2018-12-13] MEDS: INSULIN ASPART [NOVOLOG] 3 ML PEN SC SCH ×5 (05:03→21:30)
[2018-12-13] MEDS: ESCITALOPRAM 10 MG TAB PO SCH (09:00)
[2018-12-13] MEDS: MIDODRINE 5 MG TAB PO SCH ×3 (09:00→21:48)
--- NOTE | 2018-12-13 09:53 | PREAC ---
Date/Time of Note Date/Time of Note DATE: 12/13/18 TIME: 09:50 Anesthesia Eval and Record Evaluation Time Pre-Procedure Interview DATE: 12/13/18 TIME: 09:50 Age 63 Sex female NPO: 8 hrs Preoperative diagnosis bile duct stones, abd, nausea, vomiting Planned procedure ERCP Dr Josue Past Medical History Past Medical History: Includes Cardio: HTN, Dyslipidemia Endo: Diabetes Hepatic: Hepatitis (autoiimune hepatitis per Dr Josue), Cirrhosis Heme: Anemia, Thrombocytopenia Surgery & Anesthesia Issues No known issue Meds Anticoagulation: No Beta Darío within 24 hr: No Reason Beta Darío not given: Pt. not on B-Darío Reported Medications Escitalopram Oxalate* (Escitalopram Oxalate*) 10 Mg Tablet, 10 MG PO DAILY, #30 TAB 12/12/18 Atorvastatin* (Atorvastatin*) 40 Mg Tablet, 40 MG PO QHS, #30 TAB 12/12/18 Omeprazole* (Omeprazole*) 40 Mg Capsule.dr, 40 MG PO DAILY, #30 CAP 12/12/18 Midodrine* (Midodrine*) 10 Mg Tablet, 10 MG PO TID, TAB 12/12/18 Alendronate Sodium* (Fosamax*) 70 Mg Tablet, 70 MG PO Q SAT, #4 TAB 12/12/18 Mycophenolate Mofetil* (Mycophenolate Mofetil*) 500 Mg Tablet, 500 MG PO DAILY, TAB 12/12/18 Lisinopril* (Lisinopril*) 5 Mg Tablet, 5 MG PO DAILY, #30 TAB 12/12/18 Spironolactone* (Aldactone*) 50 Mg Tablet, 50 MG PO DAILY, TAB 12/12/18 Lactulose (Constulose) 10 Gm/15 Ml Solution, 15 ML PO NEEDED 12/12/18 Metolazone* (Metolazone*) 2.5 Mg Tablet, 2.5 MG PO DAILY, TAB TAKE Q TUES,THURS,FRI. 12/12/18 Furosemide* (Furosemide*) 40 Mg Tablet, 40 MG PO BID, TAB 12/12/18 Insulin Glargine,Hum.rec.anlog (Basaglar Kwikpen U-100) 100 Unit/1 Ml Insuln.pen, 20 UNIT SC QHS, EA CHECK IF BS WAS HIGH SHE CAN USE 30 UNITS 12/12/18 Discontinued Reported Medications Spironolactone* (Aldactone*) 50 Mg Tablet, 50 MG PO DAILY, #30 TAB 11/26/17 Omeprazole* (Omeprazole*) 20 Mg Capsule.dr, 20 MG PO DAILY, #30 CAP 11/26/17 Mycophenolate Mofetil* (Cellcept*) 500 Mg Tablet, 500 MG PO BID, #60 TAB 11/26/17 Insulin Glargine* (Lantus*) 100 Unit/Ml Soln, 10 UNIT SC QAM, #1 VIAL 11/26/17 Furosemide* (Furosemide*) 40 Mg Tablet, 40 MG PO BID, TAB 11/26/17 Discontinued Scripts Hydrocodone/Acetaminophen ([place] 5-325 Tablet) 1 Each Tablet, 1 TAB PO Q6H PRN for PAIN, #20 TAB Prov:RYAN WEBB DO 09/24/18 Dicyclomine HCl (Dicyclomine HCl) 10 Mg Capsule, 20 MG PO TID PRN for ABDOMINAL CRAMPING, #20 CAP Prov:RYAN WEBB DO 09/24/18 Ondansetron Hcl* (Zofran*) 4 Mg Tablet, 4 MG PO Q6H for NAUSEA AND/OR VOMITING, #30 TAB Prov:MANUEL RANGEL MD 07/22/18 Polyethylene Glycol* (Miralax*) 17 Gm Powd.pack, 17 GM PO DAILY, #7 Prov:MANUEL RANGEL MD 07/22/18 Tramadol HCl (Tramadol HCl) 50 Mg Tablet, 50 MG PO Q4 PRN for PAIN, #20 TAB Prov:ZEUS STYLES PA-C 01/31/18 Methylprednisolone* (Medrol* DOSE PACK) 4 Mg/Dose-Pack Tab.ds.pk, 4 MG PO . DIRECTED, #1 PACKET Prov:ZEUS STYLES PA-C 01/31/18 Naproxen* (Naprosyn*) 500 Mg Tablet, 500 MG PO BID PRN for PAIN AND/OR INFLAMMATION, #30 TAB Prov:ZEUS STYLES PA-C 01/31/18 Cyclobenzaprine Hcl* (Cyclobenzaprine Hcl*) 10 Mg Tablet, 10 MG PO TID, #15 TAB Prov:ZEUS STYLES PA-C 01/31/18 Current Medications Piperacillin Sod/ Tazobactam Sod 100 ml @ 200 mls/hr Q8 IVPB Last administered on 12/13/18at 05:00; Admin Dose 200 MLS/HR; Start 12/12/18 at 22:00 Sodium Chloride 1,000 ml @ 70 mls/hr [id number] IV Last administered on 12/12/18at 23:27; Admin Dose 70 MLS/HR; Start 12/12/18 at 16:40 IV Flush (NS 3 ml) 3 ml PER PROTOCOL IV ; Start 12/12/18 at 17:00 Ondansetron HCl (Zofran Inj) 4 mg Q6H PRN IV NAUSEA/VOMITING; Start 12/12/18 at 17:00 Acetaminophen (Tylenol Tab) 650 mg Q6H PRN PO .PAIN 1-3 OR TEMP; Start 12/12/18 at 17:00 Morphine Sulfate (morphine) 2 mg Q4H PRN IV .SEVERE PAIN 7-10; Start 12/12/18 at 17:00 Magnesium Hydroxide (Milk Of Mag) 30 ml DAILY PRN PO .CONSTIPATION; Start 12/12/18 at 17:00 Pantoprazole (Protonix Iv) 40 mg DAILY@06 IV Last administered on 12/13/18at 05:00; Admin Dose 40 MG; Start 12/13/18 at 06:00 Atorvastatin Calcium (Lipitor) 40 mg QHS PO ; Start 12/12/18 at 21:00 Escitalopram Oxalate (Lexapro) 10 mg DAILY PO ; Start 12/13/18 at 09:00 Midodrine (Proamatine) 10 mg TID PO ; Start 12/12/18 at 21:00 Diagnostic Test (Pha) (Accu-Chek) 1 ea 02 XX ; Start 12/13/18 at 02:00 Miscellaneous Information 1 ea NOTE XX ; Start 12/12/18 at 18:00 Glucose (Glutose) 15 gm Q15M PRN PO DECREASED GLUCOSE; Start 12/12/18 at 18:00 Glucose (Glutose) 22.5 gm Q15M PRN PO DECREASED GLUCOSE; Start 12/12/18 at 1 8:00 Dextrose (D50w Syringe) 25 ml Q15M PRN IV DECREASED GLUCOSE; Start 12/12/18 at 18:00 Dextrose (D50w Syringe) 50 ml Q15M PRN IV DECREASED GLUCOSE; Start 12/12/18 at 18:00 Glucagon (Glucagen) 1 mg Q15M PRN IM DECREASED GLUCOSE; Start 12/12/18 at 18:00 Glucose (Glutose) 15 gm Q15M PRN BUCCAL DECREASED GLUCOSE; Start 12/12/18 at 18:00 Insulin Aspart (Novolog Insulin Pen) NOVOLOG *MILD* ALGORI... Q6 SC ; Start 12/13/18 at 00:00 Influenza Virus Vaccine Quadrival (Fluzone) 0.5 ml ONCE ONCE IM* ; Start 12/15/18 at 10:00; Stop 12/15/18 at 10:01 Meds reviewed: Yes Allergies Coded Allergies: No Known Allergy (Unverified , 12/12/18) Allergies Reviewed: Yes Labs/Studies Labs Reviewed: Reviewed by anesthesiologist Result Diagram: 12/13/18 0512 12/13/18 0512 Laboratory Tests 12/13/18 05:12 test: N/A Studies: ECG (05/14/18 NSR LAD) Pre-procedure Exam Last vitals Vital Signs Date Temp Pulse Resp B/P (MAP) Pulse Ox O2 O2 Flow FiO2 Time Delivery Rate 12/13/18 97.9 75 16 98/57 (71) 96 08:27 12/12/18 Room Air 17:54 Airway: Adequate mouth opening, Adequate thyromental dist Mallampati: Mallampati II (has right jaw pain when opening mouth) Teeth: Normal Lung: Normal Heart: Normal ASA Physical Status ASA physical status: 3 Emergency: E Planned Pain Management Parenteral pain med, Local by surgeon Pre-operative Attestations Prior to commencing anesthesia and surgery, the patient was re-evaluated, there was verification of: *The patient's identity *The results of appropriate recent lab work and preoperative vital signs *The above evaluation not changing prior to induction *Anesthetic plan, risk benefits, alternative and complications discussed with patient/family; questions answered; patient/family understands, accepts and wishes to proceed. ED ANG Dec 13, 2018 09:53
[2018-12-13] MEDS ORDERED: SUCCINYLCHOLINE CHLORIDE 100 MG/5 ML SYG IV ONE (10:22)
[2018-12-13] MEDS ORDERED: PROPOFOL 20 ML ONE (10:22)
[2018-12-13] MEDS ORDERED: FENTAnyl 50 MCG/ML VIAL ONE (10:22)
[2018-12-13] MEDS ORDERED: ONDANSETRON 4 MG INJ ONE (10:22)
[2018-12-13] MEDS ORDERED: METOCLOPRAMIDE 10 MG INJ ONE (10:22)
[2018-12-13] MEDS ORDERED: IOHEXOL 300MG/ML 30 ML BTL ONE (10:30)
--- NOTE | 2018-12-13 10:30 | HPN ---
Date/Time of Note Date/Time of Note DATE: 12/13/18 TIME: 10:30 Interval H&P Admission Note Pt. seen H&P reviewed: No system changes LAURA RAMIREZ MD Dec 13, 2018 10:30
--- NOTE | 2018-12-13 10:40 | HP ---
DATE OF ADMISSION: 12/12/2018 REASON FOR ADMISSION: Abdominal pain. 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 The patient was also having some episod es of nausea and vomiting. The patient also describes she had some loose stools. She denied any fev ers and chills. According to the patient, she has loss of appetite for the past few days. The patie nt came to the emergency department for further evaluation. On admission, vital signs were blood pre ssure 106/66, pulse 77, afebrile, saturating 99%. Labs showed BMP within normal limit; however, tota l bilirubin 3.1, direct bilirubin 1.90. AST is 75, ALT is 50, alkaline phosphatase 241. White count 5.4, hemoglobin 10.4, platelet count 139. The patient had a gallbladder ultrasound that showed live r cirrhosis, questionable 2.4 cm hyperechoic mass in the left lobe of the liver, multiple stones with in the gallbladder, slight amount of ascites. The patient had a CT of the abdomen and pelvis that sh owed cholelithiasis, focal calcification of common bile duct represents choledocholithiasis, mild com mon bile ductal dilatation up to 10 mm, hepatic cirrhosis and patient was started on Zosyn and was ad mitted for further management. PAST MEDICAL HISTORY: 1. Autoimmune cirrhosis. 2. History of stroke recovered fully. 3. Diabetes type 2. 4. History of hepatic encephalopathy. 5. Cervical disease of the spine. 6. Atherosclerotic aorta. 7. Degenerative joint disease of the C-spine. 8. History of L5 vertebral fracture. ALLERGIES: NONE. PAST SURGICAL HISTORY: Appendectomy, carpal tunnel surgery, C-sections. MEDICATIONS: 1. Midodrine 10 mg t.i.d. 2. Atorvastatin 40 mg. 3. Lisinopril 5 mg. 4. Spironolactone 50 mg. 5. Lexapro 10 mg. 6. Lasix 40 mg b.i.d. 7. Lactulose as needed. 8. Metolazone 2.5, Wednesday, , Wednesday. 9. Prilosec 40 mg. 10. Insulin Lantus 20 mg at bedtime. 11. Fosamax 70 mg. 12. Mycophenolate 500. REVIEW OF SYSTEMS: The patient complained of severe epigastric abdominal pain associated with some e pisodes of nausea, vomiting, some diarrhea. She denies any hematemesis, any melena, any bright red p er rectum. She denies any focal neurological deficits. PHYSICAL EXAMINATION: VITAL SIGNS: Currently blood pressure of 194/58, afebrile, heart rate 84, respirations 17, saturatin g 99% on room air. GENERAL: The patient is awake, alert, oriented, does not appear to in any acute distress. HEENT: Pupils equal, round, react to light. No scleral icterus appreciated. NECK: Supple. HEART: Regular rate and rhythm. LUNGS: Clear to auscultate bilaterally. ABDOMEN: Some tenderness present in the epigastric region and the right upper quadrant. EXTREMITIES: No edema. NEUROLOGIC: Nonfocal. The patient is awake, alert, oriented. LABORATORY DATA: Showed bilirubin 3.1, alkaline phosphatase 241, platelet count of 139, hematocrit 3 2, white count of 5.4. BUN of 26, creatinine 0.84. IMAGING STUDIES: Gallbladder ultrasound showed liver cirrhosis, questionable 2.4 cm hypoechoic mass at the left lobe, multiple stones within the gallbladder, gallbladder wall thickening, small amount o f ascites. CT of the abdomen and pelvis, cholelithiasis, focal calcification distal common duct, lik nic representing choledocholithiasis, mild bile duct dilatation up to 10 mm hepatic cirrhosis. ASSESSMENT: This is a 63-year-old female who presented with: 1. Abdominal pain, nausea, vomiting likely secondary to choledocholithiasis. 2. Symptomatic cholelithiasis. 3. Abnormal liver function tests secondary to #1. 4. Thrombocytopenia, likely secondary to splenic sequestration. 5. History of autoimmune cirrhosis. 6. Chronic hypotension, on midodrine. 7. History of ascites. 8. Questionable liver mass on the CAT scan. 9. Diabetes type 2. 10. Osteoporosis. 11. History of L5 fracture. 12. Depression. 13. Hyperlipidemia. PLAN: At this period of time, the patient will be admitted to med/surg. The patient will be kept n. p.o., started on IV fluids, also started on IV Zosyn. GI consultation has already been obtained. MR HICKS is pending. The patient also needs surgery consultation. The patient will be on IV Zosyn. Rest of the treatment will depend on the patient's hospitalization course. Dictated By: REI MENCHACA/REI Conf#: [id number] DID#: [id number] CC: REI FONSECA; LAURA RAMIREZ MD;*EndCC*
[2018-12-13] MEDS ORDERED: EPHEDrine 50 MG INJ ONE (10:59)
[2018-12-13] MEDS ORDERED: INDOMETHACIN 50 MG SUPP PR ONE (11:00)
--- NOTE | 2018-12-13 11:47 | CONS ---
Assessment/Plan Assessment/Plan Hospital Course (Demo Recall) 1. Abdominal pain with cholelithiasis, possible choledocholithiasis: DDX: Liver cirrhosis, symptomatic cholelithiasis, choledocholithiasis versus other; Mazin Galo class B -ERCP per GI 2. Liver cirrhosis: currently on CellCept; with 2.4 cm hypoechoic mass in left lobe -Hepatic optimization -Further imaging for characterization of mass 3. Transaminitis and hyperbilirubinemia: 2/2 #1 and 2 -As above -Trend 4. Pancytopenia: Patient currently on CellCept -Monitor -Supportive, transfuse as needed 5. UTI: -abx per sensitivity -frequent bladder emptying/cath care 6. Diabetes: -Glucose optimization for text Thank you. Patient seen and examined in collaboration with Dr. Shilo Escobar. Consultation Date/Type/Reason Admit Date/Time Dec 12, 2018 at 14:35 Date of Consultation: Dec 13, 2018 Type of Consult Surgical Reason for Consultation Cholelithiasis, abdominal pain, possible choledocholithiasis Requesting Provider: REI FONSECA MD Date/Time of Note DATE: 12/13/18 TIME: 11:25 Hx of Present Illness Eloise Youngblood is a 63-year-old woman with past medical history of autoimmune cirrhosis, CVA, diabetes, hepatic encephalopathy, cervical disease of the spine, atherosclerotic aorta, degenerative joint disease of C-spine, L5 vertebral fracture, appendectomy, carpal tunnel surgery, who presented with complaints of epigastric pain for several days. Associated symptoms include occasional nausea with vomiting, nonbloody emesis, as well as loose stools and poor appetite. No reports of fevers, congested cough, chest pain, palpitations, dysuria, hematochezia, melena. Ultrasound imaging of the abdomen shows liver cirrhosis with a questionable 2.4 cm hypoechoic mass in the left lobe of the liver, as well as multiple stones within the gallbladder with mild gallbladder wall thickening and small amount of ascites. CT shows focal calcification in the distal common bile duct and ductal dilatation with concern for choledocholithiasis. Laboratory findings significant for hyperbilirubinemia with elevated direct bilirubin, as well as transaminitis. She was seen by GI specialist and is recommended for an ERCP. General surgery was also asked to evaluate. 12 point review of systems was performed and is negative except as stated in HPI. Past Medical History As above Home Meds Reported Medications Escitalopram Oxalate* (Escitalopram Oxalate*) 10 Mg Tablet, 10 MG PO DAILY, #30 TAB 12/12/18 Atorvastatin* (Atorvastatin*) 40 Mg Tablet, 40 MG PO QHS, #30 TAB 12/12/18 Omeprazole* (Omeprazole*) 40 Mg Capsule.dr, 40 MG PO DAILY, #30 CAP 12/12/18 Midodrine* (Midodrine*) 10 Mg Tablet, 10 MG PO TID, TAB 12/12/18 Alendronate Sodium* (Fosamax*) 70 Mg Tablet, 70 MG PO Q SAT, #4 TAB 12/12/18 Mycophenolate Mofetil* (Mycophenolate Mofetil*) 500 Mg Tablet, 500 MG PO DAILY, TAB 12/12/18 Lisinopril* (Lisinopril*) 5 Mg Tablet, 5 MG PO DAILY, #30 TAB 12/12/18 Spironolactone* (Aldactone*) 50 Mg Tablet, 50 MG PO DAILY, TAB 12/12/18 Lactulose (Constulose) 10 Gm/15 Ml Solution, 15 ML PO NEEDED 12/12/18 Metolazone* (Metolazone*) 2.5 Mg Tablet, 2.5 MG PO DAILY, TAB TAKE Q ,,WED. 12/12/18 Furosemide* (Furosemide*) 40 Mg Tablet, 40 MG PO BID, TAB 12/12/18 Insulin Glargine,Hum.rec.anlog (Basaglar Kwikpen U-100) 100 Unit/1 Ml In suln.pen, 20 UNIT SC QHS, EA CHECK IF BS WAS HIGH SHE CAN USE 30 UNITS 12/12/18 Discontinued Reported Medications Spironolactone* (Aldactone*) 50 Mg Tablet, 50 MG PO DAILY, #30 TAB 11/26/17 Omeprazole* (Omeprazole*) 20 Mg Capsule.dr, 20 MG PO DAILY, #30 CAP 11/26/17 Mycophenolate Mofetil* (Cellcept*) 500 Mg Tablet, 500 MG PO BID, #60 TAB 11/26/17 Insulin Glargine* (Lantus*) 100 Unit/Ml Soln, 10 UNIT SC QAM, #1 VIAL 11/26/17 Furosemide* (Furosemide*) 40 Mg Tablet, 40 MG PO BID, TAB 11/26/17 Discontinued Scripts Hydrocodone/Acetaminophen ([place] 5-325 Tablet) 1 Each Tablet, 1 TAB PO Q6H PRN for PAIN, #20 TAB Prov:RYAN WEBB DO 09/24/18 Dicyclomine HCl (Dicyclomine HCl) 10 Mg Capsule, 20 MG PO TID PRN for ABDOMINAL CRAMPING, #20 CAP Prov:RYAN WEBB DO 09/24/18 Ondansetron Hcl* (Zofran*) 4 Mg Tablet, 4 MG PO Q6H for NAUSEA AND/OR VOMITING, #30 TAB Prov:MANUEL RANGEL MD 07/22/18 Polyethylene Glycol* (Miralax*) 17 Gm Powd.pack, 17 GM PO DAILY, #7 Prov:MANUEL RANGEL MD 07/22/18 Tramadol HCl (Tramadol HCl) 50 Mg Tablet, 50 MG PO Q4 PRN for PAIN, #20 TAB Prov:ZEUS STYLES PA-C 01/31/18 Methylprednisolone* (Medrol* DOSE PACK) 4 Mg/Dose-Pack Tab.ds.pk, 4 MG PO . DIRECTED, #1 PACKET Prov:ZEUS STYLES PA-C 01/31/18 Naproxen* (Naprosyn*) 500 Mg Tablet, 500 MG PO BID PRN for PAIN AND/OR INFLAMMATION, #30 TAB Prov:ZEUS STYLES PA-C 01/31/18 Cyclobenzaprine Hcl* (Cyclobenzaprine Hcl*) 10 Mg Tablet, 10 MG PO TID, #15 TAB Prov:ZEUS STYLES PA-C 01/31/18 Medications Current Medications Piperacillin Sod/ Tazobactam Sod 100 ml @ 200 mls/hr Q8 IVPB Last administered on 12/13/18at 05:00; Admin Dose 200 MLS/HR; Start 12/12/18 at 22:00 Sodium Chloride 1,000 ml @ 70 mls/hr [id number] IV Last administered on 12/12/18at 23:27; Admin Dose 70 MLS/HR; Start 12/12/18 at 16:40 IV Flush (NS 3 ml) 3 ml PER PROTOCOL IV ; Start 12/12/18 at 17:00 Ondansetron HCl (Zofran Inj) 4 mg Q6H PRN IV NAUSEA/VOMITING; Start 12/12/18 at 17:00 Acetaminophen (Tylenol Tab) 650 mg Q6H PRN PO .PAIN 1-3 OR TEMP; Start 12/12/18 at 17:00 Morphine Sulfate (morphine) 2 mg Q4H PRN IV .SEVERE PAIN 7-10; Start 12/12/18 at 17:00 Magnesium Hydroxide (Milk Of Mag) 30 ml DAILY PRN PO .CONSTIPATION; Start 12/12/18 at 17:00 Pantoprazole (Protonix Iv) 40 mg DAILY@06 IV Last administered on 12/13/18at 05:00; Admin Dose 40 MG; Start 12/13/18 at 06:00 Atorvastatin Calcium (Lipitor) 40 mg QHS PO ; Start 12/12/18 at 21:00 Escitalopram Oxalate (Lexapro) 10 mg DAILY PO ; Start 12/13/18 at 09:00 Midodrine (Proamatine) 10 mg TID PO ; Start 12/12/18 at 21:00 Diagnostic Test (Pha) (Accu-Chek) 1 ea 02 XX ; Start 12/13/18 at 02:00 Miscellaneous Information 1 ea NOTE XX ; Start 12/12/18 at 18:00 Glucose (Glutose) 15 gm Q15M PRN PO DECREASED GLUCOSE; Start 12/12/18 at 18:00 Glucose (Glutose) 22.5 gm Q15M PRN PO DECREASED GLUCOSE; Start 12/12/18 at 18:0 0 Dextrose (D50w Syringe) 25 ml Q15M PRN IV DECREASED GLUCOSE; Start 12/12/18 at 18:00 Dextrose (D50w Syringe) 50 ml Q15M PRN IV DECREASED GLUCOSE; Start 12/12/18 at 18:00 Glucagon (Glucagen) 1 mg Q15M PRN IM DECREASED GLUCOSE; Start 12/12/18 at 18:00 Glucose (Glutose) 15 gm Q15M PRN BUCCAL DECREASED GLUCOSE; Start 12/12/18 at 18:00 Insulin Aspart (Novolog Insulin Pen) NOVOLOG *MILD* ALGORI... Q6 SC ; Start 12/13/18 at 00:00 Influenza Virus Vaccine Quadrival (Fluzone) 0.5 ml ONCE ONCE IM* ; Start 12/15/18 at 10:00; Stop 12/15/18 at 10:01 Allergies: Coded Allergies: No Known Allergy (Unverified , 12/12/18) Past Surgical History As above Past Surgical Hx: endoscopy, other Family History Significant Family History: no pertinent family hx Social History Smoking Status: Never smoker Exam/Review of Systems Exam Vitals Vital Signs Date Temp Pulse Resp B/P (MAP) Pulse Ox O2 O2 Flow FiO2 Time Delivery Rate 12/13/18 97.9 75 16 98/57 (71) 96 08:27 12/12/18 Room Air 17:54 Intake and Output 12/12/18 12/12/18 12/13/18 1414:59 22:59 06:59 IntakeIntake Total 570 ml BalanceBalance 570 ml Constitutional: alert, oriented Psych: nl mood/affect; No anxiety Head: normocephalic, atraumatic Eyes: nl conjunctiva, EOMI, nl lids, nl sclera ENMT: nl external ears & nose, nl lips & teeth, nl nasal mucosa & septum, mucosa pink and moist Neck: supple, non-tender Respiratory: normal air movement; No congested cough Cardiovascular: regular rate and rhythm Gastrointestinal: soft, distended (min), tender (min ) Genitourinary - Female: nl external genitalia Musculoskeletal: nl extremities to inspection, nl gait and stance Extremities: normal pulses Neurological: nl mental status, nl speech, nl strength Skin: other (min jaundice) Results Result Diagram: 12/13/1812 12/13/18 0512 Results 24hrs Laboratory Tests Test 12/12/18 12:35 12/13/18 00:10 12/13/18 05:03 12/13/18 05:12 White Blood Count 5.4 3.5 #L Red Blood Count 4.12 L 3.61 L Hemoglobin 10.4 L 9.3 L Hematocrit 32.9 L 30.0 L Mean Corpuscular 79.9 L 83.1 Volume Mean Corpuscular 25.2 L 25.8 L Hemoglobin Mean Corpuscular 31.6 L 31.0 L Hemoglobin Concen t Red Cell 17.4 H 17.3 H Distribution Width Platelet Count 139 #L 135 L Mean Platelet 9.7 9.4 Volume Immature 0.600 H 0.900 H Granulocytes % Neutrophils % 78.1 H Segmented 46 48 Neutrophils % (Manual) Band Neutrophils 32 H 28 H % (Manual) Lymphocytes % 12.5 L Lymphocytes % 6 L 15 (Manual) Reactive 8 H 1 H Lymphocytes % (Manual) Monocytes % 6.5 Monocytes % 5 5 (Manual) Eosinophils % 2.1 Eosinophils % 3 (Manual) Basophils % 0.2 Nucleated Red 0.0 0.0 Blood Cells % Immature 0.030 0.030 Granulocytes # Neutrophils # 4.2 Neutrophils # 2.6 1.7 (Manual) Band Neutrophils 1.7 H 0.9 H # Lymphocytes 0.3 L 0.5 L (Manual) Lymphocytes # 0.7 L Reactive 0.4 H 0.0 Lymphocytes # Monocytes # 0.4 Monocytes # 0.2 L 0.1 L (Manual) Eosinophils # 0.1 Basophils # 0.0 Nucleated Red 0.0 Blood Cells # Platelet Estimate NORMAL DECREASED Polychromasia 3+ Poikilocytosis 1+ 1+ Anisocytosis 1+ 1+ Microcytosis 1+ 1+ Prothrombin Time 14.3 Prothrombin Time 1.1 Ratio INR International 1.10 Normalized Ratio Urine Color JOANNA Urine Clarity SLIGHTLY CLOUDY A Urine pH 5.0 Urine Specific 1.018 [place] Urine Ketones NEGATIVE Urine Nitrite NEGATIVE Urine Bilirubin NEGATIVE Urine 2+ H Urobilinogen Urine Leukocyte 3+ H Esterase Urine Microscopic 4 RBC Urine Microscopic 83 H WBC Urine Squamous MANY A Epithelial Cells Urine Renal FEW A Epithelial Cells Urine Bacteria MODERATE Urine Hemoglobin NEGATIVE Urine Glucose NEGATIVE Urine Total 1+ H Protein Sodium Level 135 139 Potassium Level 3.6 3.6 Chloride Level 99 103 Carbon Dioxide 26 23 Level Anion Gap 10 13 Blood Urea 26 H 17 # Nitrogen Creatinine 0.84 0.65 Est Glomerular > 60 > 60 Filtrat Rate mL/min Glucose Level 203 85 # Calcium Level 9.9 9.0 Total Bilirubin 3.1 H 2.0 H Direct Bilirubin 1.90 H 1.10 #H Indirect 1.2 H 0.9 Bilirubin Aspartate Amino 75 H 50 H Transf (AST/SGOT) Alanine 50 37 Aminotransferase (ALT/SGPT) Alkaline 241 H 189 H Phosphatase Total Protein 8.0 6.8 # Albumin 3.9 3.2 L Globulin 4.10 H 3.60 H Albumin/Globulin 0.95 0.88 Ratio Lipase 37 Bedside Glucose 100 88 Basophils % 2 (Manual) Myelocytes % 1 H (Manual) Basophils # 0.0 (Manual) Myelocytes # 0.0 Giant Platelets 2 H Phosphorus Level 3.0 Magnesium Level 1.9 Alpha Fetoprotein 0.86 Medications Medication Current Medications Piperacillin Sod/ Tazobactam Sod 100 ml @ 200 mls/hr Q8 IVPB Last administered on 12/13/18at 05:00; Admin Dose 200 MLS/HR; Start 12/12/18 at 22:00 Sodium Chloride 1,000 ml @ 70 mls/hr [id number] IV Last administered on 12/12/18at 23:27; Admin Dose 70 MLS/HR; Start 12/12/18 at 16:40 IV Flush (NS 3 ml) 3 ml PER PROTOCOL IV ; Start 12/12/18 at 17:00 Ondansetron HCl (Zofran Inj) 4 mg Q6H PRN IV NAUSEA/VOMITING; Start 12/12/18 at 17:00 Acetaminophen (Tylenol Tab) 650 mg Q6H PRN PO .PAIN 1-3 OR TEMP; Start 12/12/18 at 17:00 Morphine Sulfate (morphine) 2 mg Q4H PRN IV .SEVERE PAIN 7-10; Start 12/12/18 at 17:00 Magnesium Hydroxide (Milk Of Mag) 30 ml DAILY PRN PO .CONSTIPATION; Start 12/12/18 at 17:00 Pantoprazole (Protonix Iv) 40 mg DAILY@06 IV Last administered on 12/13/18at 05:00; Admin Dose 40 MG; Start 12/13/18 at 06:00 Atorvastatin Calcium (Lipitor) 40 mg QHS PO ; Start 12/12/18 at 21:00 Escitalopram Oxalate (Lexapro) 10 mg DAILY PO ; Start 12/13/18 at 09:00 Midodrine (Proamatine) 10 mg TID PO ; Start 12/12/18 at 21:00 Diagnostic Test (Pha) (Accu-Chek) 1 ea 02 XX ; Start 12/13/18 at 02:00 Miscellaneous Information 1 ea NOTE XX ; Start 12/12/18 at 18:00 Glucose (Glutose) 15 gm Q15M PRN PO DECREASED GLUCOSE; Start 12/12/18 at 18:00 Glucose (Glutose) 22.5 gm Q15M PRN PO DECREASED GLUCOSE; Start 12/12/18 at 18:00 Dextrose (D50w Syringe) 25 ml Q15M PRN IV DECREASED GLUCOSE; Start 12/12/18 at 18:00 Dextrose (D50w Syringe) 50 ml Q15M PRN IV DECREASED GLUCOSE; Start 12/12/18 at 18:00 Glucagon (Glucagen) 1 mg Q15M PRN IM DECREASED GLUCOSE; Start 12/12/18 at 18:00 Glucose (Glutose) 15 gm Q15M PRN BUCCAL DECREASED GLUCOSE; Start 12/12/18 at 18:00 Insulin Aspart (Novolog Insulin Pen) NOVOLOG *MILD* ALGORI... Q6 SC ; Start 12/13/18 at 00:00 Influenza Virus Vaccine Quadrival (Fluzone) 0.5 ml ONCE ONCE IM* ; Start 12/15/18 at 10:00; Stop 12/15/18 at 10:01 JOAO MORRIS NP Dec 13, 2018 11:38
--- NOTE | 2018-12-13 15:20 | PN ---
Date/Time of Note Date/Time of Note DATE: 12/13/18 TIME: 15:17 Assessment/Plan VTE Prophylaxis Risk score (from [facility])>0 risk: 3 [place] [facility] [place] contraindicated: low risk/ambulating Pharmacological prophylaxis: NA/contraindicated Pharm contraindication: low risk/ambulating Lines/Catheters IV C[facility]ter Type (from [facility] [place] Urinary Cath still in place: No Assessment/Plan Assessment/Plan ASSESSMENT: This is a 63-year-old female who presented with: 1. Abdominal pain, nausea, vomiting likely secondary to choledocholithiasis. 2. Symptomatic cholelithiasis. 3. Abnormal liver function tests secondary to #1. 4. Thrombocytopenia, likely secondary to splenic sequestration. 5. History of autoimmune cirrhosis. 6. Chronic hypotension, on midodrine. 7. History of ascites. 8. Questionable liver mass on the CAT scan. 9. Diabetes type 2. 10. Osteoporosis. 11. History of L5 fracture. 12. Depression. 13. Hyperlipidemia. plan -Post ER CP with a sphincterotomy and placement of stent -LFTs monitor - mrcp results pending - liver mass with AFP normal> will check with GI - CLD - CW Zosyn - cw ppi - iv fluids Result Diagram: 12/13/18 0512 12/13/18 0512 Results 24hrs Laboratory Tests Test 12/13/18 00:10 12/13/18 05:03 12/13/18 05:12 Bedside Glucose 100 88 White Blood Count 3.5 #L Red Blood Count 3.61 L Hemoglobin 9.3 L Hematocrit 30.0 L Mean Corpuscular Volume 83.1 Mean Corpuscular Hemoglobin 25.8 L Mean Corpuscular Hemoglobin Concent 31.0 L Red Cell Distribution Width 17.3 H Platelet Count 135 L Mean Platelet Volume 9.4 Immature Granulocytes % 0.900 H Neutrophils % Segmented Neutrophils % (Manual) 48 Band Neutrophils % (Manual) 28 H Lymphocytes % Lymphocytes % (Manual) 15 Reactive Lymphocytes % (Manual) 1 H Monocytes % Monocytes % (Manual) 5 Eosinophils % Basophils % Basophils % (Manual) 2 Myelocytes % (Manual) 1 H Nucleated Red Blood Cells % 0.0 Immature Granulocytes # 0.030 Neutrophils # Neutrophils # (Manual) 1.7 Band Neutrophils # 0.9 H Lymphocytes (Manual) 0.5 L Lymphocytes # Reactive Lymphocytes # 0.0 Monocytes # Monocytes # (Manual) 0.1 L Eosinophils # Basophils # Basophils # (Manual) 0.0 Myelocytes # 0.0 Nucleated Red Blood Cells # Platelet Estimate DECREASED Giant Platelets 2 H Poikilocytosis 1+ Anisocytosis 1+ Microcytosis 1+ Sodium Level 139 Potassium Level 3.6 Chloride Level 103 Carbon Dioxide Level 23 Anion Gap 13 Blood Urea Nitrogen 17 # Creatinine 0.65 Est Glomerular Filtrat Rate mL/min > 60 Glucose Level 85 # Calcium Level 9.0 Phosphorus Level 3.0 Magnesium Level 1.9 Total Bilirubin 2.0 H Direct Bilirubin 1.10 #H Indirect Bilirubin 0.9 Aspartate Amino Transf (AST/SGOT) 50 H Alanine Aminotransferase (ALT/SGPT) 37 Alkaline Phosphatase 189 H Total Protein 6.8 # Albumin 3.2 L Globulin 3.60 H Albumin/Globulin Ratio 0.88 Alpha Fetoprotein 0.86 Subjective 24 Hr Interval Summary Free Text/Dictation ERCP with sphincterotomy and placement for stent Exam/Review of Systems Exam Vitals Vital Signs Date Temp Pulse Resp B/P (MAP) Pulse Ox O2 O2 Flow FiO2 Time Delivery Rate 12/13/18 97.9 78 16 106/59 95 Room Air 14:33 (75) 12/13/18 8.0 12:39 Intake and Output 12/12/18 12/12/18 12/13/18 1515:00 23:00 07:00 IntakeIntake Total 570 ml BalanceBalance 570 ml Exam GENERAL: The patient is awake, alert, oriented, does not appear to in any acute distress. HEENT: Pupils equal, round, react to light. No scleral icterus appreciated. NECK: Supple. HEART: Regular rate and rhythm. LUNGS: Clear to auscultate bilaterally. ABDOMEN: Some tenderness present in the epigastric region and the right upper quadrant. EXTREMITIES: No edema. NEUROLOGIC: Nonfocal. The patient is awake, alert, oriented. Results Results 24hrs Laboratory Tests Test 12/13/18 00:10 12/13/18 05:03 12/13/18 05:12 Bedside Glucose 100 88 White Blood Count 3.5 #L Red Blood Count 3.61 L Hemoglobin 9.3 L Hematocrit 30.0 L Mean Corpuscular Volume 83.1 Mean Corpuscular Hemoglobin 25.8 L Mean Corpuscular Hemoglobin Concent 31.0 L Red Cell Distribution Width 17.3 H Platelet Count 135 L Mean Platelet Volume 9.4 Immature Granulocytes % 0.900 H Neutrophils % Segmented Neutrophils % (Manual) 48 Band Neutrophils % (Manual) 28 H Lymphocytes % Lymphocytes % (Manual) 15 Reactive Lymphocytes % (Manual) 1 H Monocytes % Monocytes % (Manual) 5 Eosinophils % Basophils % Basophils % (Manual) 2 Myelocytes % (Manual) 1 H Nucleated Red Blood Cells % 0.0 Immature Granulocytes # 0.030 Neutrophils # Neutrophils # (Manual) 1.7 Band Neutrophils # 0.9 H Lymphocytes (Manual) 0.5 L Lymphocytes # Reactive Lymphocytes # 0.0 Monocytes # Monocytes # (Manual) 0.1 L Eosinophils # Basophils # Basophils # (Manual) 0.0 Myelocytes # 0.0 Nucleated Red Blood Cells # Platelet Estimate DECREASED Giant Platelets 2 H Poikilocytosis 1+ Anisocytosis 1+ Microcytosis 1+ Sodium Level 139 Potassium Level 3.6 Chloride Level 103 Carbon Dioxide Level 23 Anion Gap 13 Blood Urea Nitrogen 17 # Creatinine 0.65 Est Glomerular Filtrat Rate mL/min > 60 Glucose Level 85 # Calcium Level 9.0 Phosphorus Level 3.0 Magnesium Level 1.9 Total Bilirubin 2.0 H Direct Bilirubin 1.10 #H Indirect Bilirubin 0.9 Aspartate Amino Transf (AST/SGOT) 50 H Alanine Aminotransferase (ALT/SGPT) 37 Alkaline Phosphatase 189 H Total Protein 6.8 # Albumin 3.2 L Globulin 3.60 H Albumin/Globulin Ratio 0.88 Alpha Fetoprotein 0.86 Medications Medication Current Medications Piperacillin Sod/ Tazobactam Sod 100 ml @ 200 mls/hr Q8 IVPB Last administered on 12/13/18at 14:35; Admin Dose 200 MLS/HR; Start 12/12/18 at 22:00 Sodium Chloride 1,000 ml @ 70 mls/hr [id number] IV Last administered on 12/12/18at 23:27; Admin Dose 70 MLS/HR; Start 12/12/18 at 16:40 IV Flush (NS 3 ml) 3 ml PER PROTOCOL IV ; Start 12/12/18 at 17:00 Ondansetron HCl (Zofran Inj) 4 mg Q6H PRN IV NAUSEA/VOMITING; Start 12/12/18 at 17:00 Acetaminophen (Tylenol Tab) 650 mg Q6H PRN PO .PAIN 1-3 OR TEMP; Start 12/12/18 at 17:00 Morphine Sulfate (morphine) 2 mg Q4H PRN IV .SEVERE PAIN 7-10; Start 12/12/18 at 17:00 Magnesium Hydroxide (Milk Of Mag) 30 ml DAILY PRN PO .CONSTIPATION; Start 12/12/18 at 17:00 Pantoprazole (Protonix Iv) 40 mg DAILY@06 IV Last administered on 12/13/18at 05:00; Admin Dose 40 MG; Start 12/13/18 at 06:00 Atorvastatin Calcium (Lipitor) 40 mg QHS PO ; Start 12/12/18 at 21:00 Escitalopram Oxalate (Lexapro) 10 mg DAILY PO ; Start 12/13/18 at 09:00 Midodrine (Proamatine) 10 mg TID PO ; Start 12/12/18 at 21:00 Diagnostic Test (Pha) (Accu-Chek) 1 ea 02 XX ; Start 12/13/18 at 02:00 Miscellaneous Information 1 ea NOTE XX ; Start 12/12/18 at 18:00 Glucose (Glutose) 15 gm Q15M PRN PO DECREASED GLUCOSE; Start 12/12/18 at 18:00 Glucose (Glutose) 22.5 gm Q15M PRN PO DECREASED GLUCOSE; Start 12/12/18 at 18:00 Dextrose (D50w Syringe) 25 ml Q15M PRN IV DECREASED GLUCOSE; Start 12/12/18 at 18:00 Dextrose (D50w Syringe) 50 ml Q15M PRN IV DECREASED GLUCOSE; Start 12/12/18 at 18:00 Glucagon (Glucagen) 1 mg Q15M PRN IM DECREASED GLUCOSE; Start 12/12/18 at 18:00 Glucose (Glutose) 15 gm Q15M PRN BUCCAL DECREASED GLUCOSE; Start 12/12/18 at 18:00 Insulin Aspart (Novolog Insulin Pen) NOVOLOG *MILD* ALGORI... Q6 SC ; Start 12/13/18 at 00:00 Influenza Virus Vaccine Quadrival (Fluzone) 0.5 ml ONCE ONCE IM* ; Start 11/26 10/15 at 10:00; Stop 12/15/18 at 10:01 REI FONSECA MD Dec 13, 2018 15:20
--- NOTE | 2018-12-13 16:07 | GILP ---
DATE OF PROCEDURE: PROCEDURE PERFORMED: ERCP, sphincterotomy placement of a pancreatic stent. INDICATION: The patient is a 63-year-old female who presented with a classical biliary colic. CAT s can shows possible stone in the distal part of the bile duct. The risks of the procedure, related an d unrelated complications, anesthetic risks, alternatives were discussed. Informed consent was obtai hang. DESCRIPTION OF PROCEDURE: The patient was brought to the OR room #9 intubated, placed in prone posit ion, was already on antibiotics. Indocin suppository was given. ERCP scope was passed with much eas e into esophagus and advanced further down into stomach and duodenum. Ampulla was identified. This ampulla opening was pushed to the side. It was not in the original position. This may be due to the stone in ampulla pushing the ampullary opening not ____ on position. The sphincterotome was engaged and deeper cannulation could not be obtained, so at that point small precut sphincterotomy done and after that, the wire could go into the pancreatic duct. We tried to use double wire technique to go into the bile duct, but because of the difficult angulation technically it was making it difficult fo r the deeper cannulation, so at this point I decided to deploy the pancreatic stent, 5-[place] 5 cm pa ncreatic stent successfully deployed. After that also over the pancreatic stent we tried to do precu t sphincterotomy, but the fold was coming in between, so I decided not to proceed further, allow the edema to subside and then we will do after a few days, so scope was removed with good patient toleran ce. IMPRESSION: 1. Precut sphincterotomy done. 2. Pancreatic stent 5-[place]er 5 cm successfully deployed. 3. Ampulla was not ____. It was angulated. The opening was not in the ____ position because of pro bably stone in the ampulla impacted. PLAN: Monitor LFT. Monitor her symptoms. We will start her on a clear liquid diet and we will repe at the ERCP once the swelling subsides after a few days. At that point, we will do precut sphinctero frankie also. Dictated By: LAURA JOHNSTON/REI Conf#: [id number] DID#: [id number] CC: REI FONSECA;*EndCC*
[2018-12-13] MEDS: SOD CHLORIDE 0.45% 1,000 ML IV SCH (21:16)
[2018-12-13] MEDS: ATORVASTATIN 40 MG TAB PO SCH (21:49)
[2018-12-14 02:00] VITALS: BP 86/42; PULSE 77; RESP 17
[2018-12-14] MEDS: ACCU-CHEK XX SCH (02:00)
[2018-12-14] MEDS: SOD CHLORIDE 0.45% 1,000 ML IV SCH (02:59)
[2018-12-14] MEDS: PIPER-TAZO 3.375 GM IV (PMX) 100 ML IVPB SCH ×3 (06:12→20:10)
[2018-12-14] MEDS: PANTOPRAZOLE 40 MG INJ IV SCH (06:12)
[2018-12-14] MEDS: morphine 2 MG INJ IV PRN (06:42)
--- NOTE | 2018-12-14 07:20 | PAC ---
Date/Time of Note Date/Time of Note DATE: 12/14/18 TIME: 07:19 Post-Anesthesia Notes Post-Anesthesia Note Last documented vital signs Vital Signs Date Temp Pulse Resp B/P (MAP) Pulse Ox O2 O2 Flow FiO2 Time Delivery Rate 12/14/18 98.3 77 17 86/42 (57) 96 02:00 12/13/18 Room Air 14:33 12/13/18 8.0 12:39 Activity: WNL Respiratory function: WNL Cardiovascular function: WNL Mental status: Baseline Pain reasonably controlled: Yes Hydration appropriate: Yes Nausea/Vomiting absent: No ERVIN ZEE MD Dec 14, 2018 07:20
[2018-12-14] MEDS: INSULIN ASPART [NOVOLOG] 3 ML PEN SC SCH ×4 (08:00→20:09)
[2018-12-14 08:07] VITALS: BP 88/52; PULSE 78; RESP 16
[2018-12-14] MEDS: ESCITALOPRAM 10 MG TAB PO SCH (09:54)
[2018-12-14] MEDS: MIDODRINE 5 MG TAB PO SCH ×3 (09:54→20:10)
--- NOTE | 2018-12-14 11:40 | PN ---
Date/Time of Note Date/Time of Note DATE: 12/14/18 TIME: 11:40 Assessment/Plan VTE Prophylaxis Risk score (from [facility] [place]0 risk: 3 SCD applied (from [facility] [place]): No SCD contraindicated: low risk/ambulating Pharmacological prophylaxis: NA/contraindicated Pharm contraindication: low risk/ambulating Lines/Catheters IV C[facility]ter Type (from [facility]): Peripheral IV Urinary Cath still in place: No Assessment/Plan Hospital Course duplicate Result Diagram: 12/14/18 0702 12/14/18 0702 Results 24hrs Laboratory Tests Test 12/13/18 18:16 12/13/18 21:51 12/14/18 07:02 12/14/18 08:03 Bedside Glucose 140 167 112 White Blood Count 3.7 L Red Blood Count 3.56 L Hemoglobin 9.3 L Hematocrit 29.7 L Mean Corpuscular 83.4 Volume Mean Corpuscular 26.1 L Hemoglobin Mean Corpuscular 31.3 L Hemoglobin Concent Red Cell 17.2 H Distribution Width Platelet Count 156 Mean Platelet Volume 10.3 Immature 0.800 H Granulocytes % Neutrophils % 73.0 Lymphocytes % 13.6 L Monocytes % 9.1 Eosinophils % 3.2 Basophils % 0.3 Nucleated Red Blood 0.0 Cells % Immature 0.030 Granulocytes # Neutrophils # 2.7 Lymphocytes # 0.5 L Monocytes # 0.3 Eosinophils # 0.1 Basophils # 0.0 Nucleated Red Blood 0.0 Cells # Sodium Level 139 Potassium Level 3.5 Chloride Level 107 Carbon Dioxide Level 21 Anion Gap 11 Blood Urea Nitrogen 11 Creatinine 0.55 Est Glomerular > 60 Filtrat Rate mL/min Glucose Level 111 Calcium Level 8.4 Phosphorus Level 2.3 L Magnesium Level 1.8 Total Bilirubin 1.3 Direct Bilirubin 0.40 #H Indirect Bilirubin 0.9 Aspartate Amino 36 Transf (AST/SGOT) Alanine 27 Aminotransferase (AL T/SGPT) Alkaline Phosphatase 171 H Total Protein 6.0 L Albumin 2.7 L Globulin 3.30 H Albumin/Globulin 0.81 Ratio Subjective 24 Hr Interval Summary Free Text/Dictation i Exam/Review of Systems Exam Vitals Vital Signs Date Temp Pulse Resp B/P (MAP) Pulse Ox O2 O2 Flow FiO2 Time Delivery Rate 12/14/18 98.4 78 16 88/52 (64) 97 08:07 12/13/18 Room Air 14:33 12/13/18 8.0 12:39 Intake and Output 12/13/18 12/13/18 12/14/18 1515:00 23:00 07:00 IntakeIntake Total 350 ml 1010 ml 1000 ml BalanceBalance 350 ml 1010 ml 1000 ml Exam i Results Results 24hrs Laboratory Tests Test 12/13/18 18:16 12/13/18 21:51 12/14/18 07:02 12/14/18 08:03 Bedside Glucose 140 167 112 White Blood Count 3.7 L Red Blood Count 3.56 L Hemoglobin 9.3 L Hematocrit 29.7 L Mean Corpuscular 83.4 Volume Mean Corpuscular 26.1 L Hemoglobin Mean Corpuscular 31.3 L Hemoglobin Concent Red Cell 17.2 H Distribution Width Platelet Count 156 Mean Platelet Volume 10.3 Immature 0.800 H Granulocytes % Neutrophils % 73.0 Lymphocytes % 13.6 L Monocytes % 9.1 Eosinophils % 3.2 Basophils % 0.3 Nucleated Red Blood 0.0 Cells % Immature 0.030 Granulocytes # Neutrophils # 2.7 Lymphocytes # 0.5 L Monocytes # 0.3 Eosinophils # 0.1 Basophils # 0.0 Nucleated Red Blood 0.0 Cells # Sodium Level 139 Potassium Level 3.5 Chloride Level 107 Carbon Dioxide Level 21 Anion Gap 11 Blood Urea Nitrogen 11 Creatinine 0.55 Est Glomerular > 60 Filtrat Rate mL/min Glucose Level 111 Calcium Level 8.4 Phosphorus Level 2.3 L Magnesium Level 1.8 Total Bilirubin 1.3 Direct Bilirubin 0.40 #H Indirect Bilirubin 0.9 Aspartate Amino 36 Transf (AST/SGOT) Alanine 27 Aminotransferase (AL T/SGPT) Alkaline Phosphatase 171 H Total Protein 6.0 L Albumin 2.7 L Globulin 3.30 H Albumin/Globulin 0.81 Ratio Medications Medication Current Medications Piperacillin Sod/ Tazobactam Sod 100 ml @ 200 mls/hr Q8 IVPB Last administered on 12/14/18at 06:12; Admin Dose 200 MLS/HR; Start 12/12/18 at 22:00 Sodium Chloride 1,000 ml @ 70 mls/hr [id number] IV Last administered on 12/14/18at 02:59; Admin Dose 70 MLS/HR; Start 12/12/18 at 16:40 IV Flush (NS 3 ml) 3 ml PER PROTOCOL IV ; Start 12/12/18 at 17:00 Ondansetron HCl (Zofran Inj) 4 mg Q6H PRN IV NAUSEA/VOMITING; Start 12/12/18 at 17:00 Acetaminophen (Tylenol Tab) 650 mg Q6H PRN PO .PAIN 1-3 OR TEMP; Start 12/12/18 at 17:00 Morphine Sulfate (morphine) 2 mg Q4H PRN IV .SEVERE PAIN 7-10 Last administered on 12/14/18at 06:42; Admin Dose 2 MG; Start 12/12/18 at 17:00 Magnesium Hydroxide (Milk Of Mag) 30 ml DAILY PRN PO .CONSTIPATION; Start 12/12/18 at 17:00 Pantoprazole (Protonix Iv) 40 mg DAILY@06 IV Last administered on 12/14/18at 06:12; Admin Dose 40 MG; Start 12/13/18 at 06:00 Atorvastatin Calcium (Lipitor) 40 mg QHS PO Last administered on 12/13/18at 21:49; Admin Dose 40 MG; Start 12/12/18 at 21:00 Escitalopram Oxalate (Lexapro) 10 mg DAILY PO Last administered on 12/14/18at 09:54; Admin Dose 10 MG; Start 12/13/18 at 09:00 Midodrine (Proamatine) 10 mg TID PO Last administered on 12/14/18at 09:54; Admin Dose 10 MG; Start 12/12/18 at 21:00 Miscellaneous Information 1 ea NOTE XX ; Start 12/12/18 at 18:00 Glucose (Glutose) 15 gm Q15M PRN PO DECREASED GLUCOSE; Start 12/12/18 at 18:00 Glucose (Glutose) 22.5 gm Q15M PRN PO DECREASED GLUCOSE; Start 12/12/18 at 18:00 Dextrose (D50w Syringe) 25 ml Q15M PRN IV DECREASED GLUCOSE; Start 12/12/18 at 18:00 Dextrose (D50w Syringe) 50 ml Q15M PRN IV DECREASED GLUCOSE; Start 12/12/18 at 18:00 Glucagon (Glucagen) 1 mg Q15M PRN IM DECREASED GLUCOSE; Start 12/12/18 at 18:00 Glucose (Glutose) 15 gm Q15M PRN BUCCAL DECREASED GLUCOSE; Start 12/12/18 at 1 8:00 Influenza Virus Vaccine Quadrival (Fluzone) 0.5 ml ONCE ONCE IM* ; Start 12/15/18 at 10:00; Stop 12/15/18 at 10:01 Diagnostic Test (Pha) (Accu-Chek) 1 XX ; Start 12/14/18 at 02:00 Insulin Aspart (Novolog Insulin Pen) NOVOLOG *MILD* ALGORITHM WITH MEALS BEDTIME SC ; Start 12/13/18 at 21:30 REI FONSECA MD Dec 14, 2018 11:40
--- NOTE | 2018-12-14 12:36 | PN ---
Date/Time of Note Date/Time of Note DATE: 12/14/18 TIME: 12:31 Assessment/Plan Lines/Catheters IV Catheter Type (from [facility]): Peripheral IV Dixon in Place (from [facility]): No Assessment/Plan Chief Complaint/Hosp Course 1. Abdominal pain with cholelithiasis, possible choledocholithiasis: DDX: Liver cirrhosis, symptomatic cholelithiasis, choledocholithiasis versus other; Mazin Galo class B: s/p ERCP, sphincterotomy and pancreatic stent -Repeat ERCP per GI 2. Liver cirrhosis: currently on CellCept; with 2.4 cm hypoechoic mass in left lobe -Hepatic optimization -Further imaging for characterization of mass> mri pending 3. Transaminitis and hyperbilirubinemia: / #1 and 2; improved -As above -Trend 4. Pancytopenia: Patient currently on CellCept -Monitor -Supportive, transfuse as needed 5. UTI: -abx per sensitivity -frequent bladder emptying/cath care 6. Diabetes: -Glucose optimization for text Thank you. Patient seen and examined in collaboration with Dr. Shilo Escobar. Subjective 24 Hr Interval Summary S/p ERCP. No fevers, chills, sob, congested cough, cp, palpitations, robbins, dizziness, n/v/d/dysuria. Exam/Review of Systems Vital Signs Vitals Vital Signs Date Temp Pulse Resp B/P (MAP) Pulse Ox O2 O2 Flow FiO2 Time Delivery Rate 12/14/18 98.4 83 18 108/60 97 14:51 (76) 12/13/18 Room Air 14:33 12/13/18 8.0 12:39 Intake and Output 12/13/18 12/13/18 12/14/18 1515:00 23:00 07:00 IntakeIntake Total 350 ml 1010 ml 1000 ml BalanceBalance 350 ml 1010 ml 1000 ml Exam Free Text/Dictation Constitutional: alert, oriented Psych: nl mood/affect; No anxiety Head: normocephalic, atraumatic Eyes: nl conjunctiva, EOMI, nl lids, nl sclera ENMT: nl external ears & nose, nl lips & teeth, nl nasal mucosa & septum, mucosa pink and moist Neck: supple, non-tender Respiratory: normal air movement; No congested cough Cardiovascular: regular rate and rhythm Gastrointestinal: soft, distended (min), tender (min ) Genitourinary - Female: nl external genitalia Musculoskeletal: nl extremities to inspection, nl gait and stance Extremities: normal pulses Neurological: nl mental status, nl speech, nl strength Skin: other (min jaundice) Results Result Diagram: 12/14/18 0702 12/14/18 0702 JOAO MORRIS NP Dec 14, 2018 12:36
--- NOTE | 2018-12-14 13:02 | PN ---
Date/Time of Note Date/Time of Note DATE: 12/14/18 TIME: 12:59 Assessment/Plan VTE Prophylaxis Risk score (from Ns)>0 risk: 3 [place] [facility] [place] contraindicated: low risk/ambulating Pharmacological prophylaxis: NA/contraindicated Pharm contraindication: low risk/ambulating Lines/Catheters IV Catheter Type (from [facility]): Peripheral IV Urinary Cath still in place: No Assessment/Plan Assessment/Plan ASSESSMENT: This is a 63-year-old female who presented with: 1. Abdominal pain, nausea, vomiting likely secondary to choledocholithiasis. 2. Symptomatic cholelithiasis. 3. Abnormal liver function tests secondary to #1. 4. Thrombocytopenia, likely secondary to splenic sequestration. 5. History of autoimmune cirrhosis. 6. Chronic hypotension, on midodrine. 7. History of ascites. 8. Questionable liver mass on the CAT scan. 9. Diabetes type 2. 10. Osteoporosis. 11. History of L5 fracture. 12. Depression. 13. Hyperlipidemia. plan -Post ER CP with a sphincterotomy and placement of stent pod#2 -LFTs monitor trending down - mrcp results pending - liver mass with AFP normal> will check with GI - CLD> advance diet - CW Zosyn - cw ppi -We will check with surgery if they plans on having doing any surgery for gallst ones Result Diagram: 12/14/18 0702 12/14/18 0702 Results 24hrs Laboratory Tests Test 12/13/18 18:16 12/13/18 21:51 12/14/18 07:02 12/14/18 08:03 Bedside Glucose 140 167 112 White Blood Count 3.7 L Red Blood Count 3.56 L Hemoglobin 9.3 L Hematocrit 29.7 L Mean Corpuscular 83.4 Volume Mean Corpuscular 26.1 L Hemoglobin Mean Corpuscular 31.3 L Hemoglobin Concent Red Cell 17.2 H Distribution Width Platelet Count 156 Mean Platelet Volume 10.3 Immature 0.800 H Granulocytes % Neutrophils % 73.0 Lymphocytes % 13.6 L Monocytes % 9.1 Eosinophils % 3.2 Basophils % 0.3 Nucleated Red Blood 0.0 Cells % Immature 0.030 Granulocytes # Neutrophils # 2.7 Lymphocytes # 0.5 L Monocytes # 0.3 Eosinophils # 0.1 Basophils # 0.0 Nucleated Red Blood 0.0 Cells # Sodium Level 139 Potassium Level 3.5 Chloride Level 107 Carbon Dioxide Level 21 Anion Gap 11 Blood Urea Nitrogen 11 Creatinine 0.55 Est Glomerular > 60 Filtrat Rate mL/min Glucose Level 111 Calcium Level 8.4 Phosphorus Level 2.3 L Magnesium Level 1.8 Total Bilirubin 1.3 Direct Bilirubin 0.40 #H Indirect Bilirubin 0.9 Aspartate Amino 36 Transf (AST/SGOT) Alanine 27 Aminotransferase (AL T/SGPT) Alkaline Phosphatase 171 H Total Protein 6.0 L Albumin 2.7 L Globulin 3.30 H Albumin/Globulin 0.81 Ratio Test 12/14/18 12:04 Bedside Glucose 120 Subjective 24 Hr Interval Summary Free Text/Dictation Pain in the morning. It is much improved now Exam/Review of Systems Exam Vitals Vital Signs Date Temp Pulse Resp B/P (MAP) Pulse Ox O2 O2 Flow FiO2 Time Delivery Rate 12/14/18 98.4 78 16 88/52 (64) 97 08:07 12/13/18 Room Air 14:33 12/13/18 8.0 12:39 Intake and Output 12/13/18 12/13/18 12/14/18 1515:00 23:00 07:00 IntakeIntake Total 350 ml 1010 ml 1000 ml BalanceBalance 350 ml 1010 ml 1000 ml Exam GENERAL: The patient is awake, alert, oriented, does not appear to in any acute distress. HEENT: Pupils equal, round, react to light. No scleral icterus appreciated. NECK: Supple. HEART: Regular rate and rhythm. LUNGS: Clear to auscultate bilaterally. ABDOMEN: Some tenderness present in the epigastric region and the right upper quadrant. EXTREMITIES: No edema. NEUROLOGIC: Nonfocal. The patient is awake, alert, oriented. Results Results 24hrs Laboratory Tests Test 12/13/18 18:16 12/13/18 21:51 12/14/18 07:02 12/14/18 08:03 Bedside Glucose 140 167 112 White Blood Count 3.7 L Red Blood Count 3.56 L Hemoglobin 9.3 L Hematocrit 29.7 L Mean Corpuscular 83.4 Volume Mean Corpuscular 26.1 L Hemoglobin Mean Corpuscular 31.3 L Hemoglobin Concent Red Cell 17.2 H Distribution Width Platelet Count 156 Mean Platelet Volume 10.3 Immature 0.800 H Granulocytes % Neutrophils % 73.0 Lymphocytes % 13.6 L Monocytes % 9.1 Eosinophils % 3.2 Basophils % 0.3 Nucleated Red Blood 0.0 Cells % Immature 0.030 Granulocytes # Neutrophils # 2.7 Lymphocytes # 0.5 L Monocytes # 0.3 Eosinophils # 0.1 Basophils # 0.0 Nucleated Red Blood 0.0 Cells # Sodium Level 139 Potassium Level 3.5 Chloride Level 107 Carbon Dioxide Level 21 Anion Gap 11 Blood Urea Nitrogen 11 Creatinine 0.55 Est Glomerular > 60 Filtrat Rate mL/min Glucose Level 111 Calcium Level 8.4 Phosphorus Level 2.3 L Magnesium Level 1.8 Total Bilirubin 1.3 Direct Bilirubin 0.40 #H Indirect Bilirubin 0.9 Aspartate Amino 36 Transf (AST/SGOT) Alanine 27 Aminotransferase (AL T/SGPT) Alkaline Phosphatase 171 H Total Protein 6.0 L Albumin 2.7 L Globulin 3.30 H Albumin/Globulin 0.81 Ratio Test 12/14/18 12:04 Bedside Glucose 120 Medications Medication Current Medications Piperacillin Sod/ Tazobactam Sod 100 ml @ 200 mls/hr Q8 IVPB Last administered on 12/14/18at 06:12; Admin Dose 200 MLS/HR; Start 12/12/18 at 22:00 Sodium Chloride 1,000 ml @ 70 mls/hr [id number] IV Last administered on 12/14/18at 02:59; Admin Dose 70 MLS/HR; Start 12/12/18 at 16:40 IV Flush (NS 3 ml) 3 ml PER PROTOCOL IV ; Start 12/12/18 at 17:00 Ondansetron HCl (Zofran Inj) 4 mg Q6H PRN IV NAUSEA/VOMITING; Start 12/12/18 at 17:00 Acetaminophen (Tylenol Tab) 650 mg Q6H PRN PO .PAIN 1-3 OR TEMP; Start 12/12/18 at 17:00 Morphine Sulfate (morphine) 2 mg Q4H PRN IV .SEVERE PAIN 7-10 Last administered on 12/14/18at 06:42; Admin Dose 2 MG; Start 12/12/18 at 17:00 Magnesium Hydroxide (Milk Of Mag) 30 ml DAILY PRN PO .CONSTIPATION; Start 12/12/18 at 17:00 Pantoprazole (Protonix Iv) 40 mg DAILY@06 IV Last administered on 12/14/18at 06:12; Admin Dose 40 MG; Start 12/13/18 at 06:00 Atorvastatin Calcium (Lipitor) 40 mg QHS PO Last administered on 12/13/18at 21:49; Admin Dose 40 MG; Start 12/12/18 at 21:00 Escitalopram Oxalate (Lexapro) 10 mg DAILY PO Last administered on 12/14/18at 09:54; Admin Dose 10 MG; Start 12/13/18 at 09:00 Midodrine (Proamatine) 10 mg TID PO Last administered on 12/14/18at 09:54; Admin Dose 10 MG; Start 12/12/18 at 21:00 Miscellaneous Information 1 ea NOTE XX ; Start 12/12/18 at 18:00 Glucose (Glutose) 15 gm Q15M PRN PO DECREASED GLUCOSE; Start 12/12/18 at 18:00 Glucose (Glutose) 22.5 gm Q15M PRN PO DECREASED GLUCOSE; Start 12/12/18 at 18:00 Dextrose (D50w Syringe) 25 ml Q15M PRN IV DECREASED GLUCOSE; Start 12/12/18 at 18:00 Dextrose (D50w Syringe) 50 ml Q15M PRN IV DECREASED GLUCOSE; Start 12/12/18 at 18:00 Glucagon (Glucagen) 1 mg Q15M PRN IM DECREASED GLUCOSE; Start 12/12/18 at 18:00 Glucose (Glutose) 15 gm Q15M PRN BUCCAL DECREASED GLUCOSE; Start 12/12/18 at 18:00 Influenza Virus Vaccine Quadrival (Fluzone) 0.5 ml ONCE ONCE IM* ; Start 12/15/18 at 10:00; Stop 12/15/18 at 10:01 Diagnostic Test (Pha) (Accu-Chek) 1 ea 02 XX ; Start 12/14/18 at 02:00 Insulin Aspart (Novolog Insulin Pen) NOVOLOG *MILD* ALGORITHM WITH MEALS BEDTIME SC ; Start 12/13/18 at 21:30 REI FONSCEA MD Dec 14, 2018 13:02
--- NOTE | 2018-12-14 13:41 | CONS ---
Assessment/Plan Assessment/Plan Assessment/Plan (Daily) IMPRESSION: 1. Abdominal pain with nausea and vomiting, most probably related to biliary colic. CAT scan demonstrated the bile duct stone. 2. 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 3. Diabetes mellitus. 4. Microcytic hypochromic anemia. 5. Mild thrombocytopenia. 6. Sepsis. The patient has got bandemia with bands of 32%. 7. Status post sphincterotomy and placement of pancreatic stent, there was a good biliary drainage and now the LFTs are almost normal. Plan Monitor LFT Amylase lipase Will advance diet Consultation Date/Type/Reason Admit Date/Time Dec 12, 2018 at 14:35 Initial Consult Date 12/13/18 Requesting Provider: REI FONSECA MD Date/Time of Note DATE: 12/14/18 TIME: 13:40 24 HR Interval Summary Constitutional: improved Exam/Review of Systems Exam Vitals Vital Signs Date Temp Pulse Resp B/P (MAP) Pulse Ox O2 O2 Flow FiO2 Time Delivery Rate 12/14/18 98.4 78 16 88/52 (64) 97 08:07 12/13/18 Room Air 14:33 12/13/18 8.0 12:39 Intake and Output 12/13/18 12/13/18 12/14/18 1414:59 22:59 06:59 IntakeIntake Total 350 ml 1010 ml 1000 ml BalanceBalance 350 ml 1010 ml 1000 ml Constitutional: alert, oriented, well developed Psych: no complaints, nl mood/affect Head: normocephalic, atraumatic Eyes: nl conjunctiva, EOMI, nl lids, nl sclera, PERRL ENMT: nl external ears & nose, nl lips & teeth, nl nasal mucosa & septum Neck: supple, non-tender Respiratory: clear to auscultation, normal air movement Cardiovascular: regular rate and rhythm, nl pulses Gastrointestinal: soft, nl liver, spleen, non-tender, tender (Right upper quadrant) Musculoskeletal: nl extremities to inspection, nl gait and stance Extremities: normal pulses Neurological: [employer] II-XII intact, nl mental status, nl speech, nl strength Skin: nl turgor; No rash or lesions Lymph: nl lymph nodes Results Result Diagram: 12/14/18 0702 12/14/18 0702 Results 24hrs Laboratory Tests Test 12/13/18 18:16 12/13/18 21:51 12/14/18 07:02 12/14/18 08:03 Bedside Glucose 140 167 112 White Blood Count 3.7 L Red Blood Count 3.56 L Hemoglobin 9.3 L Hematocrit 29.7 L Mean Corpuscular 83.4 Volume Mean Corpuscular 26.1 L Hemoglobin Mean Corpuscular 31.3 L Hemoglobin Concent Red Cell 17.2 H Distribution Width Platelet Count 156 Mean Platelet Volume 10.3 Immature 0.800 H Granulocytes % Neutrophils % 73.0 Lymphocytes % 13.6 L Monocytes % 9.1 Eosinophils % 3.2 Basophils % 0.3 Nucleated Red Blood 0.0 Cells % Immature 0.030 Granulocytes # Neutrophils # 2.7 Lymphocytes # 0.5 L Monocytes # 0.3 Eosinophils # 0.1 Basophils # 0.0 Nucleated Red Blood 0.0 Cells # Sodium Level 139 Potassium Level 3.5 Chloride Level 107 Carbon Dioxide Level 21 Anion Gap 11 Blood Urea Nitrogen 11 Creatinine 0.55 Est Glomerular > 60 Filtrat Rate mL/min Glucose Level 111 Calcium Level 8.4 Phosphorus Level 2.3 L Magnesium Level 1.8 Total Bilirubin 1.3 Direct Bilirubin 0.40 #H Indirect Bilirubin 0.9 Aspartate Amino 36 Transf (AST/SGOT) Alanine 27 Aminotransferase (AL T/SGPT) Alkaline Phosphatase 171 H Total Protein 6.0 L Albumin 2.7 L Globulin 3.30 H Albumin/Globulin 0.81 Ratio Test 12/14/18 12:04 Bedside Glucose 120 Medications Medication Current Medications Piperacillin Sod/ Tazobactam Sod 100 ml @ 200 mls/hr Q8 IVPB Last administered on 12/14/18at 06:12; Admin Dose 200 MLS/HR; Start 12/12/18 at 22:00 IV Flush (NS 3 ml) 3 ml PER PROTOCOL IV ; Start 12/12/18 at 17:00 Ondansetron HCl (Zofran Inj) 4 mg Q6H PRN IV NAUSEA/VOMITING; Start 12/12/18 at 17:00 Acetaminophen (Tylenol Tab) 650 mg Q6H PRN PO .PAIN 1-3 OR TEMP; Start 12/12/18 at 17:00 Morphine Sulfate (morphine) 2 mg Q4H PRN IV .SEVERE PAIN 7-10 Last administered on 12/14/18at 06:42; Admin Dose 2 MG; Start 12/12/18 at 17:00 Magnesium Hydroxide (Milk Of Mag) 30 ml DAILY PRN PO .CONSTIPATION; Start 12/12/18 at 17:00 Pantoprazole (Protonix Iv) 40 mg DAILY@06 IV Last administered on 12/14/18at 06:12; Admin Dose 40 MG; Start 12/13/18 at 06:00 Atorvastatin Calcium (Lipitor) 40 mg QHS PO Last administered on 12/13/18at 21:49; Admin Dose 40 MG; Start 12/12/18 at 21:00 Escitalopram Oxalate (Lexapro) 10 mg DAILY PO Last administered on 12/14/18at 09:54; Admin Dose 10 MG; Start 12/13/18 at 09:00 Midodrine (Proamatine) 10 mg TID PO Last administered on 12/14/18at 09:54; Admin Dose 10 MG; Start 12/12/18 at 21:00 Miscellaneous Information 1 ea NOTE XX ; Start 12/12/18 at 18:00 Glucose (Glutose) 15 gm Q15M PRN PO DECREASED GLUCOSE; Start 12/12/18 at 18:00 Glucose (Glutose) 22.5 gm Q15M PRN PO DECREASED GLUCOSE; Start 12/12/18 at 18:00 Dextrose (D50w Syringe) 25 ml Q15M PRN IV DECREASED GLUCOSE; Start 12/12/18 at 18:00 Dextrose (D50w Syringe) 50 ml Q15M PRN IV DECREASED GLUCOSE; Start 12/12/18 at 18:00 Glucagon (Glucagen) 1 mg Q15M PRN IM DECREASED GLUCOSE; Start 12/12/18 at 18:00 Glucose (Glutose) 15 gm Q15M PRN BUCCAL DECREASED GLUCOSE; Start 12/12/18 at 18:00 Influenza Virus Vaccine Quadrival (Fluzone) 0.5 ml ONCE ONCE IM* ; Start 12/15/18 at 10:00; Stop 12/15/18 at 10:01 Diagnostic Test (Pha) (Accu-Chek) 1 ea 02 XX ; Start 12/14/18 at 02:00 Insulin Aspart (Novolog Insulin Pen) NOVOLOG *MILD* ALGORITHM WITH MEALS BEDTIME SC ; Start 12/13/18 at 21:30 Sodium Phosphate (Kphos Neutral) 500 mg ONCE ONCE PO ; Start 12/14/18 at 14:30; Stop 12/14/18 at 14:31 LAURA RAMIREZ MD Dec 14, 2018 13:41
[2018-12-14] MEDS ORDERED: SOD PHOS MONO/DIBAS 250 MG TAB PO ONE (14:30)
[2018-12-14 14:51] VITALS: BP 108/60; PULSE 83; RESP 18
[2018-12-14 19:47] VITALS: BP 113/59; PULSE 82; RESP 17
[2018-12-14] MEDS: ATORVASTATIN 40 MG TAB PO SCH (20:10)
[2018-12-15] MEDS: ACCU-CHEK XX SCH (01:40)
[2018-12-15 02:04] VITALS: BP 90/54; PULSE 69; RESP 17
[2018-12-15] MEDS ORDERED: PANTOPRAZOLE (EC) 40 MG TAB PO ONE (04:54)
[2018-12-15] MEDS: PIPER-TAZO 3.375 GM IV (PMX) 100 ML IVPB SCH ×3 (05:13→22:02)
[2018-12-15] MEDS: PANTOPRAZOLE (EC) 40 MG TAB PO SCH (05:13)
[2018-12-15 07:45] VITALS: BP 83/53; PULSE 68; RESP 16
[2018-12-15] MEDS: INSULIN ASPART [NOVOLOG] 3 ML PEN SC SCH ×4 (08:00→20:23)
[2018-12-15] MEDS ORDERED: POTASSIUM CHLORIDE (SR) 20 MEQ TAB PO SCH (08:05)
--- NOTE | 2018-12-15 09:24 | PN ---
Date/Time of Note Date/Time of Note DATE: 12/15/18 TIME: 09:24 Assessment/Plan VTE Prophylaxis Risk score (from Ns)>0 risk: 3 SCD applied (from [facility] [place] No SCD contraindicated: low risk/ambulating Pharmacological prophylaxis: NA/contraindicated Pharm contraindication: low risk/ambulating Lines/Catheters IV Catheter Type (from [facility]): Saline Lock Urinary Cath still in place: No Assessment/Plan Assessment/Plan SSESSMENT: This is a 63-year-old female who presented with: 1. Abdominal pain, nausea, vomiting likely secondary to choledocholithiasis. 2. Symptomatic cholelithiasis. 3. Abnormal liver function tests secondary to #1. 4. Thrombocytopenia, likely secondary to splenic sequestration. 5. History of autoimmune cirrhosis. 6. Chronic hypotension, on midodrine. 7. History of ascites. 8. Questionable liver mass on the CAT scan. However MRI is negative 9. Diabetes type 2. 10. Osteoporosis. 11. History of L5 fracture. 12. Depression. 13. Hyperlipidemia. plan -Post ER CP with a sphincterotomy and placement of stent pod#3 still with abdominal pain today bilirubin going up -Repeat ERCP tomorrow -Possible cholecystectomy by Dr. Shawn Sanchez for pain - iv fluids -Liquid diet - CLD> advance diet - CW Zosyn - cw ppi Result Diagram: 12/15/1852712/15/1828 Results 24hrs Laboratory Tests Test 12/14/18 12:04 12/14/18 17:17 12/14/18 20:08 12/15/18 05:28 Bedside Glucose 120 123 122 White Blood Count 4.3 L Red Blood Count 3.56 L Hemoglobin 9.2 L Hematocrit 28.7 L Mean Corpuscular 80.6 L Volume Mean Corpuscular 25.8 L Hemoglobin Mean Corpuscular 32.1 Hemoglobin Concent Red Cell 17.3 H Distribution Width Platelet Count 147 Mean Platelet Volume 9.8 Immature 1.200 H Granulocytes % Neutrophils % 62.2 Lymphocytes % 23.7 Monocytes % 10.1 Eosinophils % 2.3 Basophils % 0.5 Nucleated Red Blood 0.0 Cells % Immature 0.050 H Granulocytes # Neutrophils # 2.7 Lymphocytes # 1.0 Monocytes # 0.4 Eosinophils # 0.1 Basophils # 0.0 Nucleated Red Blood 0.0 Cells # Sodium Level 138 Potassium Level 3.0 L Chloride Level 109 Carbon Dioxide Level 22 Anion Gap 7 Blood Urea Nitrogen 7 Creatinine 0.56 Est Glomerular > 60 Filtrat Rate mL/min Glucose Level 122 Calcium Level 8.6 Total Bilirubin 1.5 H Direct Bilirubin 0.70 #H Indirect Bilirubin 0.8 Aspartate Amino 45 Transf (AST/SGOT) Alanine 27 Aminotransferase (AL T/SGPT) Alkaline Phosphatase 176 H Total Protein 5.8 L Albumin 2.7 L Globulin 3.10 Albumin/Globulin 0.87 Ratio Amylase Level 175 H Test 12/15/18 08:10 Bedside Glucose 109 Subjective 24 Hr Interval Summary Free Text/Dictation Abdominal pain today on the right unable to tolerate any diet Exam/Review of Systems Exam Vitals Vital Signs Date Temp Pulse Resp B/P (MAP) Pulse Ox O2 O2 Flow FiO2 Time Delivery Rate 12/15/18 98.3 68 16 83/53 (63) 96 Room Air 07:45 12/13/18 8.0 12:39 Intake and Output 12/14/18 12/14/18 12/15/18 1515:00 23:00 07:00 IntakeIntake Total 520 ml 2060 ml 100 ml BalanceBalance 520 ml 2060 ml 100 ml Exam GENERAL: The patient is awake, alert, oriented, does not appear to in any acute distress. HEENT: Pupils equal, round, react to light. No scleral icterus appreciated. NECK: Supple. HEART: Regular rate and rhythm. LUNGS: Clear to auscultate bilaterally. ABDOMEN: Some tenderness present in the epigastric region and the right upper quadrant. EXTREMITIES: No edema. NEUROLOGIC: Nonfocal. The patient is awake, alert, oriented. Results Results 24hrs Laboratory Tests Test 12/14/18 12:04 12/14/18 17:17 12/14/18 20:08 12/15/18 05:28 Bedside Glucose 120 123 122 White Blood Count 4.3 L Red Blood Count 3.56 L Hemoglobin 9.2 L Hematocrit 28.7 L Mean Corpuscular 80.6 L Volume Mean Corpuscular 25.8 L Hemoglobin Mean Corpuscular 32.1 Hemoglobin Concent Red Cell 17.3 H Distribution Width Platelet Count 147 Mean Platelet Volume 9.8 Immature 1.200 H Granulocytes % Neutrophils % 62.2 Lymphocytes % 23.7 Monocytes % 10.1 Eosinophils % 2.3 Basophils % 0.5 Nucleated Red Blood 0.0 Cells % Immature 0.050 H Granulocytes # Neutrophils # 2.7 Lymphocytes # 1.0 Monocytes # 0.4 Eosinophils # 0.1 Basophils # 0.0 Nucleated Red Blood 0.0 Cells # Sodium Level 138 Potassium Level 3.0 L Chloride Level 109 Carbon Dioxide Level 22 Anion Gap 7 Blood Urea Nitrogen 7 Creatinine 0.56 Est Glomerular > 60 Filtrat Rate mL/min Glucose Level 122 Calcium Level 8.6 Total Bilirubin 1.5 H Direct Bilirubin 0.70 #H Indirect Bilirubin 0.8 Aspartate Amino 45 Transf (AST/SGOT) Alanine 27 Aminotransferase (AL T/SGPT) Alkaline Phosphatase 176 H Total Protein 5.8 L Albumin 2.7 L Globulin 3.10 Albumin/Globulin 0.87 Ratio Amylase Level 175 H Test 12/15/18 08:10 Bedside Glucose 109 Medications Medication Current Medications Piperacillin Sod/ Tazobactam Sod 100 ml @ 200 mls/hr Q8 IVPB Last administered on 12/15/18 05:13; Admin Dose 200 MLS/HR; Start 12/12/18 at 22:00 IV Flush (NS 3 ml) 3 ml PER PROTOCOL IV ; Start 12/12/18 at 17:00 Ondansetron HCl (Zofran Inj) 4 mg Q6H PRN IV NAUSEA/VOMITING; Start 12/12/18 at 17:00 Acetaminophen (Tylenol Tab) 650 mg Q6H PRN PO .PAIN 1-3 OR TEMP; Start 12/12/18 at 17:00 Morphine Sulfate (morphine) 2 mg Q4H PRN IV .SEVERE PAIN 7-10 Last administered on 12/14/18at 06:42; Admin Dose 2 MG; Start 12/12/18 at 17:00 Magnesium Hydroxide (Milk Of Mag) 30 ml DAILY PRN PO .CONSTIPATION; Start 12/12/18 at 17:00 Atorvastatin Calcium (Lipitor) 40 mg QHS PO Last administered on 12/14/18 20:10; Admin Dose 40 MG; Start 12/12/18 at 21:00 Escitalopram Oxalate (Lexapro) 10 mg DAILY PO Last administered on 12/14/18at 09:54; Admin Dose 10 MG; Start 12/13/18 at 09:00 Midodrine (Proamatine) 10 mg TID PO Last administered on 12/14/18at 20:10; Admin Dose 10 MG; Start 12/12/18 at 21:00 Miscellaneous Information 1 ea NOTE XX ; Start 12/12/18 at 18:00 Glucose (Glutose) 15 gm Q15M PRN PO DECREASED GLUCOSE; Start 12/12/18 at 18:00 Glucose (Glutose) 22.5 gm Q15M PRN PO DECREASED GLUCOSE; Start 12/12/18 at 18:00 Dextrose (D50w Syringe) 25 ml Q15M PRN IV DECREASED GLUCOSE; Start 12/12/18 at 18:00 Dextrose (D50w Syringe) 50 ml Q15M PRN IV DECREASED GLUCOSE; Start 12/12/18 at 18:00 Glucagon (Glucagen) 1 mg Q15M PRN IM DECREASED GLUCOSE; Start 12/12/18 at 18:00 Glucose (Glutose) 15 gm Q15M PRN BUCCAL DECREASED GLUCOSE; Start 12/12/18 at 18:00 Influenza Virus Vaccine Quadrival (Fluzone) 0.5 ml ONCE ONCE IM* ; Start 12/15/18 at 10:00; Stop 12/15/18 at 10:01 Diagnostic Test (Pha) (Accu-Chek) 1 ea 02 XX ; Start 12/14/18 at 02:00 Insulin Aspart (Novolog Insulin Pen) NOVOLOG *MILD* ALGORITHM WITH MEALS BEDTIME SC ; Start 12/13/18 at 21:30 Pantoprazole (Protonix Tab) 40 mg DAILY@06 PO Last administered on 12/15/18at 05:13; Admin Dose 40 MG; Start 12/15/18 at 06:00 Potassium Chloride (Klor-Con 20) 40 meq ONCE PO ; Start 12/15/18 at 08:05; Stop 12/15/18 at 10:00 REI FONSECA MD Dec 15, 2018 09:24
[2018-12-15] MEDS: ESCITALOPRAM 10 MG TAB PO SCH (09:44)
[2018-12-15] MEDS: MIDODRINE 5 MG TAB PO SCH ×3 (09:45→20:20)
[2018-12-15] MEDS ORDERED: INFLUENZA VIRUS VACCINE 0.5 ML (DISPENSING) IM* ONE (10:00)
--- NOTE | 2018-12-15 10:19 | PN ---
Date/Time of Note Date/Time of Note DATE: 12/15/18 TIME: 10:18 Assessment/Plan Lines/Catheters IV Catheter Type (from [facility]): Saline Lock [place] in Place (from [facility]): No Assessment/Plan Chief Complaint/Hosp Course 1. Abdominal pain with cholelithiasis, possible choledocholithiasis: DDX: Liver cirrhosis, symptomatic cholelithiasis, choledocholithiasis versus other; Mazin Galo class B: s/p ERCP, sphincterotomy and pancreatic stent -Repeat ERCP per GI pending -If pain persistent after ERCP may consider lap rola 2. Liver cirrhosis: currently on CellCept; with 2.4 cm hypoechoic mass in left lobe -Hepatic optimization -Further imaging for characterization of mass> mri pending 3. Transaminitis and hyperbilirubinemia: 2/2 #1 and 2; improved -As above -Trend 4. Pancytopenia: Patient currently on CellCept -Monitor -Supportive, transfuse as needed 5. UTI: -abx per sensitivity -frequent bladder emptying/cath care 6. Diabetes: -Glucose optimization for text Thank you. Patient seen and examined in collaboration with Dr. Shilo Escobar. Subjective 24 Hr Interval Summary Continues to have abdominal pain. No fevers, chills, sob, congested cough, cp, palpitations, robbins, dizziness, nausea, vomiting, diarrhea, dysuria. Exam/Review of Systems Vital Signs Vitals Vital Signs Date Temp Pulse Resp B/P (MAP) Pulse Ox O2 O2 Flow FiO2 Time Delivery Rate 12/15/18 98.3 68 16 83/53 (63) 96 Room Air 07:45 12/13/18 8.0 12:39 Intake and Output 12/14/18 12/14/18 12/15/18 1414:59 22:59 06:59 IntakeIntake Total 520 ml 2060 ml 100 ml BalanceBalance 520 ml 2060 ml 100 ml Exam Free Text/Dictation Constitutional: alert, oriented Psych: nl mood/affect; No anxiety Head: normocephalic, atraumatic Eyes: nl conjunctiva, EOMI, nl lids, nl sclera ENMT: nl external ears & nose, nl lips & teeth, nl nasal mucosa & septum, mucosa pink and moist Neck: supple, non-tender Respiratory: normal air movement; No congested cough Cardiovascular: regular rate and rhythm Gastrointestinal: soft, distended (min), tender (mod) Genitourinary - Female: nl external genitalia Musculoskeletal: nl extremities to inspection, nl gait and stance Extremities: normal pulses Neurological: nl mental status, nl speech, nl strength Skin: other (min jaundice) Results Result Diagram: 12/15/18 0528 12/15/18 0528 JOAO MORRIS NP Dec 15, 2018 10:19
[2018-12-15 14:13] VITALS: BP 115/67; PULSE 63; RESP 18
[2018-12-15] MEDS: morphine 2 MG INJ IV PRN (14:34)
[2018-12-15] MEDS ORDERED: traMADol 50 MG TAB PO PRN (15:00)
--- NOTE | 2018-12-15 15:04 | PREAC ---
Date/Time of Note Date/Time of Note DATE: 12/15/18 TIME: 15:03 Anesthesia Eval and Record Evaluation Time Pre-Procedure Interview DATE: 12/15/18 TIME: 15:03 Age 63 Sex female NPO: 8 hrs Preoperative diagnosis Abdominal pain with nausea and vomiting Planned procedure ERCP W/ OR W/O BRUSHING OR WASHING Past Medical History Past Medical History: Includes Cardio: HTN, Dyslipidemia Endo: Diabetes Hepatic: Hepatitis Heme: Anemia, Thrombocytopenia Surgery & Anesthesia Issues No known issue Meds Anticoagulation: No Beta Darío within 24 hr: No Reason Beta Darío not given: Pt. not on B-Darío Reported Medications Escitalopram Oxalate* (Escitalopram Oxalate*) 10 Mg Tablet, 10 MG PO DAILY, #30 TAB 12/12/18 Atorvastatin* (Atorvastatin*) 40 Mg Tablet, 40 MG PO QHS, #30 TAB 12/12/18 Omeprazole* (Omeprazole*) 40 Mg Capsule.dr, 40 MG PO DAILY, #30 CAP 12/12/18 Midodrine* (Midodrine*) 10 Mg Tablet, 10 MG PO TID, TAB 12/12/18 Alendronate Sodium* (Fosamax*) 70 Mg Tablet, 70 MG PO Q SAT, #4 TAB 12/12/18 Mycophenolate Mofetil* (Mycophenolate Mofetil*) 500 Mg Tablet, 500 MG PO DAILY, TAB 12/12/18 Lisinopril* (Lisinopril*) 5 Mg Tablet, 5 MG PO DAILY, #30 TAB 12/12/18 Spironolactone* (Aldactone*) 50 Mg Tablet, 50 MG PO DAILY, TAB 12/12/18 Lactulose (Constulose) 10 Gm/15 Ml Solution, 15 ML PO NEEDED 12/12/18 Metolazone* (Metolazone*) 2.5 Mg Tablet, 2.5 MG PO DAILY, TAB TAKE Q TUES,THURS,FRI. 12/12/18 Furosemide* (Furosemide*) 40 Mg Tablet, 40 MG PO BID, TAB 12/12/18 Insulin Glargine,Hum.rec.anlog (Basaglar Kwikpen U-100) 100 Unit/1 Ml Insuln.pen, 20 UNIT SC QHS, EA CHECK IF BS WAS HIGH SHE CAN USE 30 UNITS 12/12/18 Discontinued Reported Medications Spironolactone* (Aldactone*) 50 Mg Tablet, 50 MG PO DAILY, #30 TAB 11/26/17 Omeprazole* (Omeprazole*) 20 Mg Capsule.dr, 20 MG PO DAILY, #30 CAP 11/26/17 Mycophenolate Mofetil* (Cellcept*) 500 Mg Tablet, 500 MG PO BID, #60 TAB 11/26/17 Insulin Glargine* (Lantus*) 100 Unit/Ml Soln, 10 UNIT SC QAM, #1 VIAL 11/26/17 Furosemide* (Furosemide*) 40 Mg Tablet, 40 MG PO BID, TAB 11/26/17 Discontinued Scripts Hydrocodone/Acetaminophen ([place] 5-325 Tablet) 1 Each Tablet, 1 TAB PO Q6H PRN for PAIN, #20 TAB Prov:RYAN WEBB DO 09/24/18 Dicyclomine HCl (Dicyclomine HCl) 10 Mg Capsule, 20 MG PO TID PRN for ABDOMINAL CRAMPING, #20 CAP Prov:RYAN WEBB DO 09/24/18 Ondansetron Hcl* (Zofran*) 4 Mg Tablet, 4 MG PO Q6H for NAUSEA AND/OR VOMITING, #30 TAB Prov:MANUEL RANGEL MD 07/22/18 Polyethylene Glycol* (Miralax*) 17 Gm Powd.pack, 17 GM PO DAILY, #7 Prov:MANUEL RANGEL MD 07/22/18 Tramadol HCl (Tramadol HCl) 50 Mg Tablet, 50 MG PO Q4 PRN for PAIN, #20 TAB Prov:ZEUS STYLES PA-C 01/31/18 Methylprednisolone* (Medrol* DOSE PACK) 4 Mg/Dose-Pack Tab.ds.pk, 4 MG PO . DIRECTED, #1 PACKET Prov:ZEUS STYLES PA-C 01/31/18 Naproxen* (Naprosyn*) 500 Mg Tablet, 500 MG PO BID PRN for PAIN AND/OR IN FLAMMATION, #30 TAB Prov:ZEUS STYLES PA-C 01/31/18 Cyclobenzaprine Hcl* (Cyclobenzaprine Hcl*) 10 Mg Tablet, 10 MG PO TID, #15 TAB Prov:ZEUS STYLES PA-C 01/31/18 Current Medications Piperacillin Sod/ Tazobactam Sod 100 ml @ 200 mls/hr Q8 IVPB Last administered on 12/15/18at 14:32; Admin Dose 200 MLS/HR; Start 12/12/18 at 22:00 IV Flush (NS 3 ml) 3 ml PER PROTOCOL IV ; Start 12/12/18 at 17:00 Ondansetron HCl (Zofran Inj) 4 mg Q6H PRN IV NAUSEA/VOMITING; Start 12/12/18 at 17:00 Acetaminophen (Tylenol Tab) 650 mg Q6H PRN PO .PAIN 1-3 OR TEMP; Start 12/12/18 at 17:00 Morphine Sulfate (morphine) 2 mg Q4H PRN IV .SEVERE PAIN 7-10 Last administered on 12/15/18at 14:34; Admin Dose 2 MG; Start 12/12/18 at 17:00 Magnesium Hydroxide (Milk Of Mag) 30 ml DAILY PRN PO .CONSTIPATION; Start 12/12/18 at 17:00 Atorvastatin Calcium (Lipitor) 40 mg QHS PO Last administered on 12/14/18at 20:10; Admin Dose 40 MG; Start 12/12/18 at 21:00 Escitalopram Oxalate (Lexapro) 10 mg DAILY PO Last administered on 12/15/18at 09:44; Admin Dose 10 MG; Start 12/13/18 at 09:00 Midodrine (Proamatine) 10 mg TID PO Last administered on 12/15/18at 12:43; Admin Dose 10 MG; Start 12/12/18 at 21:00 Miscellaneous Information 1 ea NOTE XX ; Start 12/12/18 at 18:00 Glucose (Glutose) 15 gm Q15M PRN PO DECREASED GLUCOSE; Start 12/12/18 at 18:00 Glucose (Glutose) 22.5 gm Q15M PRN PO DECREASED GLUCOSE; Start 12/12/18 at 18:00 Dextrose (D50w Syringe) 25 ml Q15M PRN IV DECREASED GLUCOSE; Start 12/12/18 at 18:00 Dextrose (D50w Syringe) 50 ml Q15M PRN IV DECREASED GLUCOSE; Start 12/12/18 at 18:00 Glucagon (Glucagen) 1 mg Q15M PRN IM DECREASED GLUCOSE; Start 12/12/18 at 18:00 Glucose (Glutose) 15 gm Q15M PRN BUCCAL DECREASED GLUCOSE; Start 12/12/18 at 18:00 Diagnostic Test (Pha) (Accu-Chek) 1 ea 02 XX ; Start 12/14/18 at 02:00 Insulin Aspart (Novolog Insulin Pen) NOVOLOG *MILD* ALGORITHM WITH MEALS BEDTIME SC Last administered on 12/15/18at 12:45; Admin Dose 1 UNIT; Start 12/13/18 at 21:30 Pantoprazole (Protonix Tab) 40 mg DAILY@06 PO Last administered on 12/15/18at 05:13; Admin Dose 40 MG; Start 12/15/18 at 06:00 Dextrose/Sodium Chloride 1,000 ml @ 50 mls/hr Q20H IV ; Start 12/15/18 at 15:00 Tramadol HCl (Ultram) 50 mg Q6H PRN PO MODERATE PAIN LEVEL 4-6; Start 12/15/18 at 15:00 Meds reviewed: Yes Allergies Coded Allergies: No Known Allergy (Unverified , 12/12/18) Allergies Reviewed: Yes Labs/Studies Labs Reviewed: Reviewed by anesthesiologist Result Diagram: 12/15/1828 12/15/1828 Laboratory Tests 12/15/18 05:28 test: N/A Pre-procedure Exam Last vitals Vital Signs Date Temp Pulse Resp B/P (MAP) Pulse Ox O2 O2 Flow FiO2 Time Delivery Rate 12/15/18 98.8 63 18 115/67 96 Room Air 14:13 (83) 12/13/18 8.0 12:39 Airway: Adequate mouth opening Mallampati: Mallampati II Teeth: Normal Lung: Normal Heart: Normal ASA Physical Status ASA physical status: 3 Emergency: None Planned Anesthetic General/MAC: ETT Pre-operative Attestations Prior to commencing anesthesia and surgery, the patient was re-evaluated, there was verification of: *The patient's identity *The results of appropriate recent lab work and preoperative vital signs *The above evaluation not changing prior to induction *Anesthetic plan, risk benefits, alternative and complications discussed with patient/family; questions answered; patient/family understands, accepts and wishes to proceed. INO BOOTH Dec 15, 2018 15:04
[2018-12-15] MEDS: DEXTROSE 5%-0.45% NACL 1,000 ML IV SCH (15:07)
--- NOTE | 2018-12-15 18:55 | CONS ---
Assessment/Plan Assessment/Plan Assessment/Plan (Daily) Assessment/Plan (Daily) IMPRESSION: 1. Abdominal pain with nausea and vomiting, most probably related to biliary colic. CAT scan demonstrated the bile duct stone. 2. 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 3. Diabetes mellitus. 4. Microcytic hypochromic anemia. 5. Mild thrombocytopenia. 6. Sepsis. The patient has got bandemia with bands of 32%. 7. Status post sphincterotomy and placement of pancreatic stent, there was a good biliary drainage and now the LFTs are almost normal. Plan Monitor LFT Amylase lipase Will advance diet Patient is scheduled for ERCP with possible needle-knife. Consultation Date/Type/Reason Admit Date/Time Dec 12, 2018 at 14:35 Initial Consult Date 12/13/18 Requesting Provider: REI FONSECA MD Date/Time of Note DATE: 12/15/18 TIME: 18:54 24 HR Interval Summary Free Text/Dictation Some complaints of right upper quadrant pain and epigastric pain Exam/Review of Systems Exam Vitals Vital Signs Date Temp Pulse Resp B/P (MAP) Pulse Ox O2 O2 Flow FiO2 Time Delivery Rate 12/15/18 98.8 63 18 115/67 96 Room Air 14:13 (83) 12/13/18 8.0 12:39 Intake and Output 12/14/18 12/14/18 12/15/18 1414:59 22:59 06:59 IntakeIntake Total 520 ml 2060 ml 100 ml BalanceBalance 520 ml 2060 ml 100 ml Eyes: nl conjunctiva, EOMI, nl lids, nl sclera, PERRL Gastrointestinal: tender (Right upper quadrant and also in the epigastric area) Neurological: VEHICLE SAFETY INSPECTOR II-XII intact, nl mental status, nl speech, nl strength Results Result Diagram: 12/15/1828 12/15/1828 Results 24hrs Laboratory Tests Test 12/14/18 20:08 12/15/18 05:28 12/15/18 08:10 12/15/18 11:52 Bedside Glucose 122 109 144 White Blood Count 4.3 L Red Blood Count 3.56 L Hemoglobin 9.2 L Hematocrit 28.7 L Mean Corpuscular 80.6 L Volume Mean Corpuscular 25.8 L Hemoglobin Mean Corpuscular 32.1 Hemoglobin Concent Red Cell 17.3 H Distribution Width Platelet Count 147 Mean Platelet Volume 9.8 Immature 1.200 H Granulocytes % Neutrophils % 62.2 Lymphocytes % 23.7 Monocytes % 10.1 Eosinophils % 2.3 Basophils % 0.5 Nucleated Red Blood 0.0 Cells % Immature 0.050 H Granulocytes # Neutrophils # 2.7 Lymphocytes # 1.0 Monocytes # 0.4 Eosinophils # 0.1 Basophils # 0.0 Nucleated Red Blood 0.0 Cells # Sodium Level 138 Potassium Level 3.0 L Chloride Level 109 Carbon Dioxide Level 22 Anion Gap 7 Blood Urea Nitrogen 7 Creatinine 0.56 Est Glomerular > 60 Filtrat Rate mL/min Glucose Level 122 Calcium Level 8.6 Total Bilirubin 1.5 H Direct Bilirubin 0.70 #H Indirect Bilirubin 0.8 Aspartate Amino 45 Transf (AST/SGOT) Alanine 27 Aminotransferase (AL T/SGPT) Alkaline Phosphatase 176 H Total Protein 5.8 L Albumin 2.7 L Globulin 3.10 Albumin/Globulin 0.87 Ratio Amylase Level 175 H Test 12/15/18 17:02 Bedside Glucose 179 Medications Medication Current Medications Piperacillin Sod/ Tazobactam Sod 100 ml @ 200 mls/hr Q8 IVPB Last administered on 12/15/18at 14:32; Admin Dose 200 MLS/HR; Start 12/12/18 at 22:00 IV Flush (NS 3 ml) 3 ml PER PROTOCOL IV ; Start 12/12/18 at 17:00 Ondansetron HCl (Zofran Inj) 4 mg Q6H PRN IV NAUSEA/VOMITING; Start 12/12/18 at 17:00 Acetaminophen (Tylenol Tab) 650 mg Q6H PRN PO .PAIN 1-3 OR TEMP; Start 12/12/18 at 17:00 Morphine Sulfate (morphine) 2 mg Q4H PRN IV .SEVERE PAIN 7-10 Last administered on 12/15/18at 14:34; Admin Dose 2 MG; Start 12/12/18 at 17:00 Magnesium Hydroxide (Milk Of Mag) 30 ml DAILY PRN PO .CONSTIPATION; Start 12/12/18 at 17:00 Atorvastatin Calcium (Lipitor) 40 mg QHS PO Last administered on 12/14/18at 20:10; Admin Dose 40 MG; Start 12/12/18 at 21:00 Escitalopram Oxalate (Lexapro) 10 mg DAILY PO Last administered on 12/15/18at 09:44; Admin Dose 10 MG; Start 12/13/18 at 09:00 Midodrine (Proamatine) 10 mg TID PO Last administered on 12/15/18at 12:43; Admin Dose 10 MG; Start 12/12/18 at 21:00 Miscellaneous Information 1 ea NOTE XX ; Start 12/12/18 at 18:00 Glucose (Glutose) 15 gm Q15M PRN PO DECREASED GLUCOSE; Start 12/12/18 at 18:00 Glucose (Glutose) 22.5 gm Q15M PRN PO DECREASED GLUCOSE; Start 12/12/18 at 18:00 Dextrose (D50w Syringe) 25 ml Q15M PRN IV DECREASED GLUCOSE; Start 12/12/18 at 18:00 Dextrose (D50w Syringe) 50 ml Q15M PRN IV DECREASED GLUCOSE; Start 12/12/18 at 18:00 Glucagon (Glucagen) 1 mg Q15M PRN IM DECREASED GLUCOSE; Start 12/12/18 at 18:00 Glucose (Glutose) 15 gm Q15M PRN BUCCAL DECREASED GLUCOSE; Start 12/12/18 at 18:00 Diagnostic Test (Pha) (Accu-Chek) 1 ea 02 XX ; Start 12/14/18 at 02:00 Insulin Aspart (Novolog Insulin Pen) NOVOLOG *MILD* ALGORITHM WITH MEALS BEDTIME SC Last administered on 12/15/18at 17:04; Admin Dose 1 UNIT; Start 12/13/18 at 21:30 Pantoprazole (Protonix Tab) 40 mg DAILY@06 PO Last administered on 12/15/18at 0 5:13; Admin Dose 40 MG; Start 12/15/18 at 06:00 Dextrose/Sodium Chloride 1,000 ml @ 50 mls/hr Q20H IV Last administered on 12/15/18at 15:07; Admin Dose 50 MLS/HR; Start 12/15/18 at 15:00 Tramadol HCl (Ultram) 50 mg Q6H PRN PO MODERATE PAIN LEVEL 4-6; Start 12/15/18 at 15:00 LAURA RAMIREZ MD Dec 15, 2018 18:55
[2018-12-15 19:35] VITALS: BP 99/57; PULSE 64; RESP 18
[2018-12-15] MEDS: ATORVASTATIN 40 MG TAB PO SCH (20:19)
[2018-12-16] VITALS (23 sets, daily range): BP systolic 75–99; BP diastolic 43–93; PULSE 54–69; RESP 10–18
[2018-12-16] MEDS: ACCU-CHEK XX SCH (02:00)
[2018-12-16] MEDS: morphine 2 MG INJ IV PRN (05:55)
[2018-12-16] MEDS: PIPER-TAZO 3.375 GM IV (PMX) 100 ML IVPB SCH ×3 (05:59→22:44)
[2018-12-16] MEDS: PANTOPRAZOLE (EC) 40 MG TAB PO SCH (06:00)
[2018-12-16] MEDS: INSULIN ASPART [NOVOLOG] 3 ML PEN SC SCH ×4 (08:22→21:20)
[2018-12-16] MEDS: ESCITALOPRAM 10 MG TAB PO SCH (08:24)
[2018-12-16] MEDS: MIDODRINE 5 MG TAB PO SCH ×3 (08:24→21:19)
--- NOTE | 2018-12-16 09:10 | PN ---
FABI OSORIO 12/16/18 0910: Date/Time of Note Date/Time of Note DATE: 12/16/18 TIME: 09:10 Assessment/Plan VTE Prophylaxis Risk score (from [facility] [place])>0 risk: 4 SCD applied (from [facility] [place]): No SCD contraindicated: low risk/ambulating Pharmacological prophylaxis: NA/contraindicated Pharm contraindication: blood coag disorder, liver dx Lines/Catheters IV [facility]from [facility] [place] Urinary Cath still in place: No Assessment/Plan Hospital Course 1. Abdominal pain, nausea, vomiting likely secondary to choledocholithiasis. MRI abdomen shows: Cholelithiasis with mild gallbladder distension. There is no substantial gallbladder wall thickening and there is no pericholecystic fluid. Correlate with clinical signs of cholecystitis. Mild common bile duct dilatation without evidence of choledocholithiasis. Cirrhosis with scattered bands of fibrosis throughout the liver. 2. Symptomatic cholelithiasis. Post ERCP with a sphincterotomy and placement of stent 3. Abnormal liver function tests secondary to #1. 4. Thrombocytopenia, likely secondary to splenic sequestration. 5. History of autoimmune cirrhosis. 6. Chronic hypotension, on midodrine. 7. History of ascites. 8. Questionable liver mass on the CAT scan. However MRI is negative 9. Diabetes type 2. 10. Osteoporosis. 11. History of L5 fracture. 12. Depression. 13. Hyperlipidemia. 14. UTI Assessment/Plan - bilirubin going down -Possible cholecystectomy by Dr. Escobar today -Ultra for pain - iv fluids -NPO - CW Zosyn - GI proph. cw ppi Result Diagram: 12/16/18 0644 12/16/18 0644 Results 24hrs Laboratory Tests Test 12/15/18 11:52 12/15/18 17:02 12/15/18 20:22 12/16/18 06:44 Bedside Glucose 144 179 167 White Blood Count 4.2 L Red Blood Count 3.95 L Hemoglobin 10.1 L Hematocrit 31.7 L Mean Corpuscular 80.3 L Volume Mean Corpuscular 25.6 L Hemoglobin Mean Corpuscular 31.9 L Hemoglobin Concent Red Cell 18.1 H Distribution Width Platelet Count 176 Mean Platelet Volume 10.2 Immature 1.700 H Granulocytes % Neutrophils % 56.5 Lymphocytes % 29.7 Monocytes % 9.0 Eosinophils % 2.6 Basophils % 0.5 Nucleated Red Blood 0.0 Cells % Immature 0.070 H Granulocytes # Neutrophils # 2.4 Lymphocytes # 1.3 Monocytes # 0.4 Eosinophils # 0.1 Basophils # 0.0 Nucleated Red Blood 0.0 Cells # Sodium Level 140 Potassium Level 3.6 Chloride Level 105 Carbon Dioxide Level 22 Anion Gap 13 Blood Urea Nitrogen 6 L Creatinine 0.55 Est Glomerular > 60 Filtrat Rate mL/min Glucose Level 171 Calcium Level 8.6 Phosphorus Level 1.9 L Magnesium Level 1.8 Total Bilirubin 1.2 Direct Bilirubin 0.50 #H Indirect Bilirubin 0.7 Aspartate Amino 76 H Transf (AST/SGOT) Alanine 30 Aminotransferase (AL T/SGPT) Alkaline Phosphatase 270 #H Total Protein 6.5 Albumin 3.0 L Globulin 3.50 H Albumin/Globulin 0.85 Ratio Test 12/16/18 08:19 Bedside Glucose 165 Subjective 24 Hr Interval Summary Gastrointestinal: pain (abdominal) Exam/Review of Systems Exam Vitals Vital Signs Date Temp Pulse Resp B/P (MAP) Pulse Ox O2 O2 Flow FiO2 Time Delivery Rate 12/16/18 97.5 65 16 89/55 (66) 95 Room Air 07:30 12/13/18 8.0 12:39 Intake and Output 12/15/18 12/15/18 12/16/18 1515:00 23:00 07:00 IntakeIntake Total 450 ml 650 ml BalanceBalance 450 ml 650 ml Constitutional: alert, oriented Respiratory: clear to auscultation Cardiovascular: regular rate and rhythm Gastrointestinal: soft, rebound or guarding (RUQ) Skin: nl turgor Results Result Diagram: 12/16/1844 12/16/18 0644 Results 24hrs Laboratory Tests Test 12/15/18 11:52 12/15/18 17:02 12/15/18 20:22 12/16/18 06:44 Bedside Glucose 144 179 167 White Blood Count 4.2 L Red Blood Count 3.95 L Hemoglobin 10.1 L Hematocrit 31.7 L Mean Corpuscular 80.3 L Volume Mean Corpuscular 25.6 L Hemoglobin Mean Corpuscular 31.9 L Hemoglobin Concent Red Cell 18.1 H Distribution Width Platelet Count 176 Mean Platelet Volume 10.2 Immature 1.700 H Granulocytes % Neutrophils % 56.5 Lymphocytes % 29.7 Monocytes % 9.0 Eosinophils % 2.6 Basophils % 0.5 Nucleated Red Blood 0.0 Cells % Immature 0.070 H Granulocytes # Neutrophils # 2.4 Lymphocytes # 1.3 Monocytes # 0.4 Eosinophils # 0.1 Basophils # 0.0 Nucleated Red Blood 0.0 Cells # Sodium Level 140 Potassium Level 3.6 Chloride Level 105 Carbon Dioxide Level 22 Anion Gap 13 Blood Urea Nitrogen 6 L Creatinine 0.55 Est Glomerular > 60 Filtrat Rate mL/min Glucose Level 171 Calcium Level 8.6 Phosphorus Level 1.9 L Magnesium Level 1.8 Total Bilirubin 1.2 Direct Bilirubin 0.50 #H Indirect Bilirubin 0.7 Aspartate Amino 76 H Transf (AST/SGOT) Alanine 30 Aminotransferase (AL T/SGPT) Alkaline Phosphatase 270 #H Total Protein 6.5 Albumin 3.0 L Globulin 3.50 H Albumin/Globulin 0.85 Ratio Test 12/16/18 08:19 Bedside Glucose 165 Medications Medication Current Medications Piperacillin Sod/ Tazobactam Sod 100 ml @ 200 mls/hr Q8 IVPB Last administered on 12/16/18at 05:59; Admin Dose 200 MLS/HR; Start 12/12/18 at 22:00 IV Flush (NS 3 ml) 3 ml PER PROTOCOL IV ; Start 12/12/18 at 17:00 Ondansetron HCl (Zofran Inj) 4 mg Q6H PRN IV NAUSEA/VOMITING; Start 12/12/18 at 17:00 Acetaminophen (Tylenol Tab) 650 mg Q6H PRN PO .PAIN 1-3 OR TEMP; Start 12/12/18 at 17:00 Morphine Sulfate (morphine) 2 mg Q4H PRN IV .SEVERE PAIN 7-10 Last administered on 12/16/18at 05:55; Admin Dose 2 MG; Start 12/12/18 at 17:00 Magnesium Hydroxide (Milk Of Mag) 30 ml DAILY PRN PO .CONSTIPATION; Start 12/12/18 at 17:00 Atorvastatin Calcium (Lipitor) 40 mg QHS PO Last administered on 12/15/18at 20:19; Admin Dose 40 MG; Start 12/12/18 at 21:00 Escitalopram Oxalate (Lexapro) 10 mg DAILY PO Last administered on 12/16/18at 08:24; Admin Dose 10 MG; Start 12/13/18 at 09:00 Midodrine (Proamatine) 10 mg TID PO Last administered on 12/16/18at 08:24; Admin Dose 10 MG; Start 12/12/18 at 21:00 Miscellaneous Information 1 ea NOTE XX ; Start 12/12/18 at 18:00 Glucose (Glutose) 15 gm Q15M PRN PO DECREASED GLUCOSE; Start 12/12/18 at 18:00 Glucose (Glutose) 22.5 gm Q15M PRN PO DECREASED GLUCOSE; Start 12/12/18 at 18:00 Dextrose (D50w Syringe) 25 ml Q15M PRN IV DECREASED GLUCOSE; Start 12/12/18 at 18:00 Dextrose (D50w Syringe) 50 ml Q15M PRN IV DECREASED GLUCOSE; Start 12/12/18 at 18:00 Glucagon (Glucagen) 1 mg Q15M PRN IM DECREASED GLUCOSE; Start 12/12/18 at 18:00 Glucose (Glutose) 15 gm Q15M PRN BUCCAL DECREASED GLUCOSE; Start 12/12/18 at 18:00 Diagnostic Test (Pha) (Accu-Chek) 1 ea 02 XX ; Start 12/14/18 at 02:00 Insulin Aspart (Novolog Insulin Pen) NOVOLOG *MILD* ALGORITHM WITH MEALS BEDTIME SC Last administered on 12/16/18at 08:22; Admin Dose 1 UNIT; Start 12/13/18 at 21:30 Pantoprazole (Protonix Tab) 40 mg DAILY@06 PO Last administered on 12/15/18at 05:13; Admin Dose 40 MG; Start 12/15/18 at 06:00 Dextrose/Sodium Chloride 1,000 ml @ 50 mls/hr Q20H IV Last administered on 12/15/18at 15:07; Admin Dose 50 MLS/HR; Start 12/15/18 at 15:00 Tramadol HCl (Ultram) 50 mg Q6H PRN PO MODERATE PAIN LEVEL 4-6 Last administered on 12/15/18at 22:04; Admin Dose 50 MG; Start 12/15/18 at 15:00 REI FONSECA MD 12/16/18 1737: Assessment/Plan Assessment/Plan Assessment/Plan ERCP today ? cholecystectomy Result Diagram: 12/16/18 0644 12/16/18 0644 FABI OSORIO Dec 16, 2018 09:10 REI FONSECA MD Dec 16, 2018 17:37
[2018-12-16] MEDS ORDERED: POTASSIUM PHOSPHATE 15 MM in SOD CHLORIDE 0.9% 250 ML IVPB ONE (11:00)
[2018-12-16] MEDS: DEXTROSE 5%-0.45% NACL 1,000 ML IV SCH (11:51)
[2018-12-16] MEDS ORDERED: IOHEXOL 300MG/ML 30 ML BTL ONE (11:58)
--- NOTE | 2018-12-16 12:35 | PREAC ---
Date/Time of Note Date/Time of Note DATE: 12/16/18 TIME: 12:33 Anesthesia Eval and Record Evaluation Time Pre-Procedure Interview DATE: 12/16/18 TIME: 12:33 Age 63 Sex female NPO: 8 hrs Preoperative diagnosis Obstructive Jaundice Planned procedure ERCP Past Medical History Past Medical History: Includes Cardio: Dyslipidemia Endo: Diabetes Hepatic: Cirrhosis Heme: Anemia, Thrombocytopenia Surgery & Anesthesia Issues No known issue Meds Anticoagulation: No Beta Darío within 24 hr: No Reason Beta Darío not given: Pt. not on B-Darío Reported Medications Escitalopram Oxalate* (Escitalopram Oxalate*) 10 Mg Tablet, 10 MG PO DAILY, #30 TAB 12/12/18 Atorvastatin* (Atorvastatin*) 40 Mg Tablet, 40 MG PO QHS, #30 TAB 12/12/18 Omeprazole* (Omeprazole*) 40 Mg Capsule.dr, 40 MG PO DAILY, #30 CAP 12/12/18 Midodrine* (Midodrine*) 10 Mg Tablet, 10 MG PO TID, TAB 12/12/18 Alendronate Sodium* (Fosamax*) 70 Mg Tablet, 70 MG PO Q SAT, #4 TAB 12/12/18 Mycophenolate Mofetil* (Mycophenolate Mofetil*) 500 Mg Tablet, 500 MG PO DAILY, TAB 12/12/18 Lisinopril* (Lisinopril*) 5 Mg Tablet, 5 MG PO DAILY, #30 TAB 12/12/18 Spironolactone* (Aldactone*) 50 Mg Tablet, 50 MG PO DAILY, TAB 12/12/18 Lactulose (Constulose) 10 Gm/15 Ml Solution, 15 ML PO NEEDED 12/12/18 Metolazone* (Metolazone*) 2.5 Mg Tablet, 2.5 MG PO DAILY, TAB TAKE Q TUES,THURS,FRI. 12/12/18 Furosemide* (Furosemide*) 40 Mg Tablet, 40 MG PO BID, TAB 12/12/18 Insulin Glargine,Hum.rec.anlog (Basaglar Kwikpen U-100) 100 Unit/1 Ml Insuln.pen, 20 UNIT SC QHS, EA CHECK IF BS WAS HIGH SHE CAN USE 30 UNITS 12/12/18 Discontinued Reported Medications Spironolactone* (Aldactone*) 50 Mg Tablet, 50 MG PO DAILY, #30 TAB 11/26/17 Omeprazole* (Omeprazole*) 20 Mg Capsule.dr, 20 MG PO DAILY, #30 CAP 11/26/17 Mycophenolate Mofetil* (Cellcept*) 500 Mg Tablet, 500 MG PO BID, #60 TAB 11/26/17 Insulin Glargine* (Lantus*) 100 Unit/Ml Soln, 10 UNIT SC QAM, #1 VIAL 11/26/17 Furosemide* (Furosemide*) 40 Mg Tablet, 40 MG PO BID, TAB 11/26/17 Discontinued Scripts Hydrocodone/Acetaminophen ([place] 5-325 Tablet) 1 Each Tablet, 1 TAB PO Q6H PRN for PAIN, #20 TAB Prov:RYAN WEBB DO 09/24/18 Dicyclomine HCl (Dicyclomine HCl) 10 Mg Capsule, 20 MG PO TID PRN for ABDOMINAL CRAMPING, #20 CAP Prov:RYAN WEBB DO 09/24/18 Ondansetron Hcl* (Zofran*) 4 Mg Tablet, 4 MG PO Q6H for NAUSEA AND/OR VOMITING, #30 TAB Prov:MANUEL RANGEL MD 07/22/18 Polyethylene Glycol* (Miralax*) 17 Gm Powd.pack, 17 GM PO DAILY, #7 Prov:MANUEL RANGEL MD 07/22/18 Tramadol HCl (Tramadol HCl) 50 Mg Tablet, 50 MG PO Q4 PRN for PAIN, #20 TAB Prov:ZEUS STYLES PA-C 01/31/18 Methylprednisolone* (Medrol* DOSE PACK) 4 Mg/Dose-Pack Tab.ds.pk, 4 MG PO . DIRECTED, #1 PACKET Prov:ZEUS STYLES PA-C 01/31/18 Naproxen* (Naprosyn*) 500 Mg Tablet, 500 MG PO BID PRN for PAIN AND/OR INFLAMMATION, #30 TAB Prov:ZEUS STYLES PA-C 01/31/18 Cyclobenzaprine Hcl* (Cyclobenzaprine Hcl*) 10 Mg Tablet, 10 MG PO TID, #15 TAB Prov:ZEUS STYLES PA-C 01/31/18 Current Medications Piperacillin Sod/ Tazobactam Sod 100 ml @ 200 mls/hr Q8 IVPB Last administered on 12/16/18at 05:59; Admin Dose 200 MLS/HR; Start 12/12/18 at 22:00 IV Flush (NS 3 ml) 3 ml PER PROTOCOL IV ; Start 12/12/18 at 17:00 Ondansetron HCl (Zofran Inj) 4 mg Q6H PRN IV NAUSEA/VOMITING; Start 12/12/18 at 17:00 Acetaminophen (Tylenol Tab) 650 mg Q6H PRN PO .PAIN 1-3 OR TEMP; Start 12/12/18 at 17:00 Morphine Sulfate (morphine) 2 mg Q4H PRN IV .SEVERE PAIN 7-10 Last administered on 12/16/18at 05:55; Admin Dose 2 MG; Start 12/12/18 at 17:00 Magnesium Hydroxide (Milk Of Mag) 30 ml DAILY PRN PO .CONSTIPATION; Start 12/12/18 at 17:00 Atorvastatin Calcium (Lipitor) 40 mg QHS PO Last administered on 12/15/18at 20:19; Admin Dose 40 MG; Start 12/12/18 at 21:00 Escitalopram Oxalate (Lexapro) 10 mg DAILY PO Last administered on 12/16/18at 08:24; Admin Dose 10 MG; Start 12/13/18 at 09:00 Midodrine (Proamatine) 10 mg TID PO Last administered on 12/16/18at 08:24; Admin Dose 10 MG; Start 12/12/18 at 21:00 Miscellaneous Information 1 ea NOTE XX ; Start 12/12/18 at 18:00 Glucose (Glutose) 15 gm Q15M PRN PO DECREASED GLUCOSE; Start 12/12/18 at 18:00 Glucose (Glutose) 22.5 gm Q15M PRN PO DECREASED GLUCOSE; Start 12/12/18 at 18:00 Dextrose (D50w Syringe) 25 ml Q15M PRN IV DECREASED GLUCOSE; Start 12/12/18 at 18:00 Dextrose (D50w Syringe) 50 ml Q15M PRN IV DECREASED GLUCOSE; Start 12/12/18 at 18:00 Glucagon (Glucagen) 1 mg Q15M PRN IM DECREASED GLUCOSE; Start 12/12/18 at 18:00 Glucose (Glutose) 15 gm Q15M PRN BUCCAL DECREASED GLUCOSE; Start 12/12/18 at 18:00 Diagnostic Test (Pha) (Accu-Chek) 1 ea 02 XX ; Start 12/14/18 at 02:00 Insulin Aspart (Novolog Insulin Pen) NOVOLOG *MILD* ALGORITHM WITH MEALS BED TIME SC Last administered on 12/16/18at 12:02; Admin Dose 1 UNIT; Start 12/13/18 at 21:30 Pantoprazole (Protonix Tab) 40 mg DAILY@06 PO Last administered on 12/15/18at 05:13; Admin Dose 40 MG; Start 12/15/18 at 06:00 Dextrose/Sodium Chloride 1,000 ml @ 50 mls/hr Q20H IV Last administered on 12/16/18at 11:51; Admin Dose 50 MLS/HR; Start 12/15/18 at 15:00 Tramadol HCl (Ultram) 50 mg Q6H PRN PO MODERATE PAIN LEVEL 4-6 Last administered on 12/15/18at 22:04; Admin Dose 50 MG; Start 12/15/18 at 15:00 Potassium Phosphate 15 mm/ Sodium Chloride 255 ml @ 63.75 mls/ hr ONCE ONCE IVPB Last administered on 12/16/18at 11:51; Admin Dose 63.75 MLS/HR; Start 12/16/18 at 11:00; Stop 12/16/18 at 14:59 Indomethacin (Indocin Supp) 100 mg ONCE ONCE DE ; Start 12/16/18 at 13:30; Stop 12/16/18 at 13:31 Meds reviewed: Yes Allergies Coded Allergies: No Known Allergy (Unverified , 12/12/18) Allergies Reviewed: Yes Labs/Studies Labs Reviewed: Reviewed by anesthesiologist Result Diagram: 12/16/1864312/16/18 0644 Laboratory Tests 12/16/18 06:44 test: Positive Studies: ECG Pre-procedure Exam Last vitals Vital Signs Date Temp Pulse Resp B/P (MAP) Pulse Ox O2 O2 Flow FiO2 Time Delivery Rate 12/16/18 97.5 65 16 89/55 (66) 95 Room Air 07:30 12/13/18 8.0 12:39 Airway: Adequate mouth opening, Adequate thyromental dist Mallampati: Mallampati II Teeth: Normal Lung: Normal Heart: Normal ASA Physical Status ASA physical status: 3 Emergency: None Planned Anesthetic General/MAC: ETT Planned Pain Management Parenteral pain med Pre-operative Attestations Prior to commencing anesthesia and surgery, the patient was re-evaluated, there was verification of: *The patient's identity *The results of appropriate recent lab work and preoperative vital signs *The above evaluation not changing prior to induction *Anesthetic plan, risk benefits, alternative and complications discussed with patient/family; questions answered; patient/family understands, accepts and wishes to proceed. LEONEL BRYAN MD Dec 16, 2018 12:35
--- NOTE | 2018-12-16 12:37 | HPN ---
Date/Time of Note Date/Time of Note DATE: 12/16/18 TIME: 12:36 Interval H&P Admission Note Pt. seen H&P reviewed: No system changes LAURA RAMIREZ MD Dec 16, 2018 12:37
--- NOTE | 2018-12-16 12:38 | HPN ---
Date/Time of Note Date/Time of Note DATE: 12/16/18 TIME: 12:38 Interval H&P Admission Note Pt. seen H&P reviewed: No system changes LAURA RAMIREZ MD Dec 16, 2018 12:38
[2018-12-16] MEDS ORDERED: SEVOFLURANE 15 MIN ONE (12:40)
[2018-12-16] MEDS ORDERED: ROCURONIUM 50 MG INJ ONE (12:41)
[2018-12-16] MEDS ORDERED: FENTAnyl 50 MCG/ML VIAL ONE (12:41)
[2018-12-16] MEDS ORDERED: PROPOFOL 20 ML ONE (12:41)
[2018-12-16] MEDS ORDERED: MIDAZOLAM 1 MG/ML 2 ML INJ ONE (12:41)
[2018-12-16] MEDS ORDERED: PHENYLephrine (100 MCG/ML) 10ML SYG ONE (12:41)
[2018-12-16] MEDS ORDERED: CIPROFLOXACIN 400MG/D5W 200 ML ONE (13:00)
[2018-12-16] MEDS ORDERED: DEXAMETHASONE 4 MG/ML 5 ML INJ ONE (13:11)
[2018-12-16] MEDS ORDERED: ONDANSETRON 4 MG INJ ONE (13:11)
[2018-12-16] MEDS ORDERED: METOCLOPRAMIDE 10 MG INJ ONE (13:11)
[2018-12-16] MEDS ORDERED: SUGAMMADEX SODIUM 200 MG/2 ML VIAL IV ONE (13:22)
[2018-12-16] MEDS ORDERED: INDOMETHACIN 50 MG SUPP PR ONE (13:30)
--- NOTE | 2018-12-16 13:43 | PAC ---
Date/Time of Note Date/Time of Note DATE: 12/16/18 TIME: 13:42 Post-Anesthesia Notes Post-Anesthesia Note Last documented vital signs Vital Signs Date Temp Pulse Resp B/P (MAP) Pulse Ox O2 O2 Flow FiO2 Time Delivery Rate 12/16/18 98.3 65 16 89/55 (66) 95 Room Air 13:40 12/13/18 8.0 12:39 Activity: WNL Respiratory function: WNL Cardiovascular function: WNL Mental status: Baseline Pain reasonably controlled: Yes Hydration appropriate: Yes Nausea/Vomiting absent: Yes Comments BS post op is 406, rechecked 367 gr/dl 10 Unit regular insulin was ordered to be given and re check in 30 min. LEONEL BRYAN MD Dec 16, 2018 13:43
[2018-12-16] MEDS ORDERED: ONDANSETRON 4 MG INJ IV PRN (14:00)
[2018-12-16] MEDS ORDERED: LABETALOL HCL 20MG INJ IV PRN (14:00)
[2018-12-16] MEDS ORDERED: EPHEDrine SULFATE 50 MG/5 ML SYG IV PRN (14:00)
[2018-12-16] MEDS ORDERED: ALBUMIN HUMAN 5% 250 ML IV PRN (14:00)
[2018-12-16] MEDS ORDERED: INSULIN ASPART [NOVOLOG] 3 ML PEN SC ONE (14:00)
[2018-12-16] MEDS ORDERED: FENTAnyl 50 MCG/ML VIAL IV PRN (14:00)
[2018-12-16] MEDS ORDERED: HYDROmorphONE 1 MG/5 ML IV SYRINGE IV PRN (14:00)
--- NOTE | 2018-12-16 14:26 | RADRPT ---
Vent Rate: 63 bpm RR Interval: 0 msec OR Interval: 128 msec QRS Duration: 78 msec QT Interval: 426 msec QTC Interval: 435 msec P-R-T [place]: 29 - -33 - 17 degrees Normal sinus rhythm Left axis deviation Abnormal ECG Electronically Signed By: Ramírez Leal
[2018-12-16] MEDS ORDERED: INSULIN ASPART [NOVOLOG] 3 ML PEN SC SCH (14:37)
[2018-12-16] MEDS ORDERED: SOD CHLORIDE 0.9% 1,000 ML IV ONE (15:00)
--- NOTE | 2018-12-16 18:20 | PN ---
Date/Time of Note Date/Time of Note DATE: 12/16/18 TIME: 18:15 Assessment/Plan Lines/Catheters IV Catheter Type (from [facility]): Peripheral IV Dixon in Place (from [facility]): No Assessment/Plan Chief Complaint/Hosp Course 1. Abdominal pain with cholelithiasis, possible choledocholithiasis: DDX: Liver cirrhosis, symptomatic cholelithiasis, choledocholithiasis versus other; Mazin Galo class B: s/p ERCP x2, stone removal and sphincterotomy and pancreatic and CBD stent -Had lengthy discussion with patient and daughter regarding laparoscopic cholecystectomy. At this time, patient and daughter prefer to follow with liver specialist prior to any surgical intervention. Can follow with us as outpatient for elective laparoscopic cholecystectomy 2. Liver cirrhosis: currently on CellCept; with 2.4 cm hypoechoic mass in left lobe> MRI noted -Hepatic optimization 3. Transaminitis and hyperbilirubinemia: / #1 and 2; improved -As above -Trend 4. Pancytopenia: Patient currently on CellCept -Monitor -Supportive, transfuse as needed 5. UTI: -abx per sensitivity -frequent bladder emptying/cath care 6. Diabetes: -Glucose optimization for text Thank you. Patient seen and examined in collaboration with Dr. Shilo Escobar. Subjective 24 Hr Interval Summary Status post repeat ERCP with stone removal and CBD stent placement today. Feels better. No fevers, chills, sob, congested cough, cp, palpitations, robbins, dizziness, nausea, vomiting, diarrhea, dysuria. Exam/Review of Systems Vital Signs Vitals Vital Signs Date Temp Pulse Resp B/P (MAP) Pulse Ox O2 O2 Flow FiO2 Time Delivery Rate 12/16/18 Simple 8.0 14:18 Mask 12/16/18 56 14 99/57 (71) 100 14:02 12/16/18 98.3 13:57 Intake and Output 12/15/18 12/15/18 12/16/18 1515:00 23:00 07:00 IntakeIntake Total 450 ml 650 ml 100 ml BalanceBalance 450 ml 650 ml 100 ml Exam Free Text/Dictation Constitutional: alert, oriented Psych: nl mood/affect; No anxiety Head: normocephalic, atraumatic Eyes: nl conjunctiva, EOMI, nl lids, nl sclera ENMT: nl external ears & nose, nl lips & teeth, nl nasal mucosa & septum, mucosa pink and moist Neck: supple, non-tender Respiratory: normal air movement; No congested cough Cardiovascular: regular rate and rhythm Gastrointestinal: soft, distended (min), tender (mod) Genitourinary - Female: nl external genitalia Musculoskeletal: nl extremities to inspection, nl gait and stance Extremities: normal pulses Neurological: nl mental status, nl speech, nl strength Skin: other (min jaundice) Results Result Diagram: 12/16/18 0644 12/16/18 0644 JOAO MORRIS NP Dec 16, 2018 18:20
[2018-12-16] MEDS: ATORVASTATIN 40 MG TAB PO SCH (21:18)
[2018-12-17] MEDS ORDERED: BENZOCAINE 10% 7 GM GEL MM SCH
[2018-12-17] MEDS: BENZOCAINE 10% 7 GM GEL MM SCH ×3 (00:22→20:11)
[2018-12-17 02:33] VITALS: BP 100/57; PULSE 54; RESP 20
[2018-12-17] MEDS: ACCU-CHEK XX SCH (02:47)
[2018-12-17] MEDS: PANTOPRAZOLE (EC) 40 MG TAB PO SCH (06:32)
[2018-12-17] MEDS: PIPER-TAZO 3.375 GM IV (PMX) 100 ML IVPB SCH ×3 (06:33→21:55)
[2018-12-17 07:35] VITALS: BP 84/52; PULSE 55; RESP 18
[2018-12-17] MEDS: DEXTROSE 5%-0.45% NACL 1,000 ML IV SCH (07:51)
[2018-12-17] MEDS: INSULIN ASPART [NOVOLOG] 3 ML PEN SC SCH ×5 (08:23→21:51)
[2018-12-17] MEDS: ESCITALOPRAM 10 MG TAB PO SCH (08:24)
[2018-12-17] MEDS: MIDODRINE 5 MG TAB PO SCH ×3 (08:24→20:11)
[2018-12-17 08:26] VITALS: BP 92/50; PULSE 56
--- NOTE | 2018-12-17 12:24 | PN ---
Date/Time of Note Date/Time of Note DATE: 12/17/18 TIME: 12:22 Assessment/Plan VTE Prophylaxis Risk score (from [facility] [place]0 risk: 3 SCD applied (from [facility] [place]): No SCD contraindicated: low risk/ambulating Pharmacological prophylaxis: NA/contraindicated Pharm contraindication: blood coag disorder, liver dx, surgical contra Lines/Catheters IV Catheter Type (from [facility]): Peripheral IV Urinary Cath still in place: No Assessment/Plan Hospital Course 1. Abdominal pain, nausea, vomiting likely secondary to choledocholithiasis. MRI abdomen shows: Cholelithiasis with mild gallbladder distension. There is no substantial gallbladder wall thickening and there is no pericholecystic fluid. Correlate with clinical signs of cholecystitis. Mild common bile duct dilatation without evidence of choledocholithiasis. Cirrhosis with scattered bands of fibrosis throughout the liver. 2. Symptomatic cholelithiasis. Post ERCP with a sphincterotomy and placement of stent 3. Abnormal liver function tests secondary to #1. 4. Thrombocytopenia, likely secondary to splenic sequestration. 5. History of autoimmune cirrhosis. 6. Chronic hypotension, on midodrine. 7. History of ascites. 8. Questionable liver mass on the CAT scan. However MRI is negative 9. Diabetes type 2. 10. Osteoporosis. 11. History of L5 fracture. 12. Depression. 13. Hyperlipidemia. 14. UTI Assessment/Plan -stop IV fluids -start glaringe insulin 8 units - bilirubin going down, o.4 today -Ultram for pain - iv fluids -full liquid - CW Zosyn - GI proph. cw ppi Result Diagram: 12/17/18 0525 12/17/18 0525 Results 24hrs Laboratory Tests Test 12/16/18 13:40 12/16/18 14:26 12/16/18 15:08 12/16/18 17:23 Bedside Glucose 367 H 241 H 194 119 Test 12/16/18 21:16 12/17/18 02:33 12/17/18 05:25 12/17/18 08:14 Bedside Glucose 265 H 270 H 267 H White Blood Count 3.9 L Red Blood Count 3.84 L Hemoglobin 9.7 L Hematocrit 31.4 L Mean Corpuscular 81.8 L Volume Mean Corpuscular 25.3 L Hemoglobin Mean Corpuscular 30.9 L Hemoglobin Concent Red Cell 18.5 H Distribution Width Platelet Count 144 Mean Platelet Volume 9.9 Immature 0.800 H Granulocytes % Neutrophils % 71.8 Lymphocytes % 23.8 Monocytes % 3.3 Eosinophils % 0.0 Basophils % 0.3 Nucleated Red Blood 0.0 Cells % Immature 0.030 Granulocytes # Neutrophils # 2.8 Lymphocytes # 0.9 Monocytes # 0.1 L Eosinophils # 0.0 Basophils # 0.0 Nucleated Red Blood 0.0 Cells # Sodium Level 141 Potassium Level 4.1 Chloride Level 113 H Carbon Dioxide Level 17 L Anion Gap 11 Blood Urea Nitrogen 9 Creatinine 0.57 Est Glomerular > 60 Filtrat Rate mL/min Glucose Level 294 #H Calcium Level 7.8 L Total Bilirubin 0.4 Direct Bilirubin 0.00 # Indirect Bilirubin 0.4 Aspartate Amino 49 H Transf (AST/SGOT) Alanine 27 Aminotransferase (AL T/SGPT) Alkaline Phosphatase 219 H Total Protein 6.0 L Albumin 2.9 L Globulin 3.10 Albumin/Globulin 0.93 Ratio Test 12/17/18 12:08 Bedside Glucose 291 H Subjective 24 Hr Interval Summary Constitutional: no complaints Gastrointestinal: no complaints Genitourinary: no complaints Exam/Review of Systems Exam Vitals Vital Signs Date Temp Pulse Resp B/P (MAP) Pulse Ox O2 O2 Flow FiO2 Time Delivery Rate 12/17/18 56 92/50 (64) 08:26 12/17/18 98.0 18 96 Room Air 07:35 12/16/18 8.0 14:22 Intake and Output 12/16/18 12/16/18 12/17/18 1515:00 23:00 07:00 IntakeIntake Total 1805 ml 250 ml BalanceBalance 1805 ml 250 ml Constitutional: alert, oriented Respiratory: clear to auscultation Cardiovascular: regular rate and rhythm Gastrointestinal: soft Results Results 24hrs Laboratory Tests Test 12/16/18 13:40 12/16/18 14:26 12/16/18 15:08 12/16/18 17:23 Bedside Glucose 367 H 241 H 194 119 Test 12/16/18 21:16 12/17/18 02:33 12/17/18 05:25 12/17/18 08:14 Bedside Glucose 265 H 270 H 267 H White Blood Count 3.9 L Red Blood Count 3.84 L Hemoglobin 9.7 L Hematocrit 31.4 L Mean Corpuscular 81.8 L Volume Mean Corpuscular 25.3 L Hemoglobin Mean Corpuscular 30.9 L Hemoglobin Concent Red Cell 18.5 H Distribution Width Platelet Count 144 Mean Platelet Volume 9.9 Immature 0.800 H Granulocytes % Neutrophils % 71.8 Lymphocytes % 23.8 Monocytes % 3.3 Eosinophils % 0.0 Basophils % 0.3 Nucleated Red Blood 0.0 Cells % Immature 0.030 Granulocytes # Neutrophils # 2.8 Lymphocytes # 0.9 Monocytes # 0.1 L Eosinophils # 0.0 Basophils # 0.0 Nucleated Red Blood 0.0 Cells # Sodium Level 141 Potassium Level 4.1 Chloride Level 113 H Carbon Dioxide Level 17 L Anion Gap 11 Blood Urea Nitrogen 9 Creatinine 0.57 Est Glomerular > 60 Filtrat Rate mL/min Glucose Level 294 #H Calcium Level 7.8 L Total Bilirubin 0.4 Direct Bilirubin 0.00 # Indirect Bilirubin 0.4 Aspartate Amino 49 H Transf (AST/SGOT) Alanine 27 Aminotransferase (AL T/SGPT) Alkaline Phosphatase 219 H Total Protein 6.0 L Albumin 2.9 L Globulin 3.10 Albumin/Globulin 0.93 Ratio Test 12/17/18 12:08 Bedside Glucose 291 H Medications Medication Current Medications Piperacillin Sod/ Tazobactam Sod 100 ml @ 200 mls/hr Q8 IVPB Last administered on 12/17/18at 06:33; Admin Dose 200 MLS/HR; Start 12/12/18 at 22:00 IV Flush (NS 3 ml) 3 ml PER PROTOCOL IV ; Start 12/12/18 at 17:00 Ondansetron HCl (Zofran Inj) 4 mg Q6H PRN IV NAUSEA/VOMITING; Start 12/12/18 at 17:00 Acetaminophen (Tylenol Tab) 650 mg Q6H PRN PO .PAIN 1-3 OR TEMP; Start 12/12/18 at 17:00 Morphine Sulfate (morphine) 2 mg Q4H PRN IV .SEVERE PAIN 7-10 Last administered on 12/16/18at 05:55; Admin Dose 2 MG; Start 12/12/18 at 17:00 Magnesium Hydroxide (Milk Of Mag) 30 ml DAILY PRN PO .CONSTIPATION; Start 12/12/18 at 17:00 Atorvastatin Calcium (Lipitor) 40 mg QHS PO Last administered on 12/16/18at 21:18; Admin Dose 40 MG; Start 12/12/18 at 21:00 Escitalopram Oxalate (Lexapro) 10 mg DAILY PO Last administered on 12/17/18 08:24; Admin Dose 10 MG; Start 12/13/18 at 09:00 Midodrine (Proamatine) 10 mg TID PO Last administered on 12/17/18 08:24; Admin Dose 10 MG; Start 12/12/18 at 21:00 Miscellaneous Information 1 ea NOTE XX ; Start 12/12/18 at 18:00 Glucose (Glutose) 15 gm Q15M PRN PO DECREASED GLUCOSE; Start 12/12/18 at 18:00 Glucose (Glutose) 22.5 gm Q15M PRN PO DECREASED GLUCOSE; Start 12/12/18 at 18:00 Dextrose (D50w Syringe) 25 ml Q15M PRN IV DECREASED GLUCOSE; Start 12/12/18 at 18:00 Dextrose (D50w Syringe) 50 ml Q15M PRN IV DECREASED GLUCOSE; Start 12/12/18 at 18:00 Glucagon (Glucagen) 1 mg Q15M PRN IM DECREASED GLUCOSE; Start 12/12/18 at 18:00 Glucose (Glutose) 15 gm Q15M PRN BUCCAL DECREASED GLUCOSE; Start 12/12/18 at 18:00 Diagnostic Test (Pha) (Accu-Chek) 1 ea 02 XX Last administered on 12/17/18at 02:47; Admin Dose 1 EA; Start 12/14/18 at 02:00 Insulin Aspart (Novolog Insulin Pen) NOVOLOG *MILD* ALGORITHM WITH MEALS BEDTIME SC Last administered on 12/17/18at 12:09; Admin Dose 5 UNIT; Start 12/13/18 at 21:30 Pantoprazole (Protonix Tab) 40 mg DAILY@06 PO Last administered on 12/17/18 06:32; Admin Dose 40 MG; Start 12/15/18 at 06:00 Dextrose/Sodium Chloride 1,000 ml @ 50 mls/hr Q20H IV Last administered on 12/17/18at 07:51; Admin Dose 50 MLS/HR; Start 12/15/18 at 15:00 Tramadol HCl (Ultram) 50 mg Q6H PRN PO MODERATE PAIN LEVEL 4-6 Last administered on 12/15/18at 22:04; Admin Dose 50 MG; Start 12/15/18 at 15:00 Benzocaine (Orajel) 1 applic BID MM Last administered on 12/17/18at 08:24; Admin Dose 1 APPLIC; Start 12/17/18 at 00:00 FABI OSORIO Dec 17, 2018 12:24
--- NOTE | 2018-12-17 13:10 | CONS ---
Assessment/Plan Assessment/Plan Assessment/Plan (Daily) Assessment/Plan Assessment/Plan (Daily) IMPRESSION: 1. Abdominal pain with nausea and vomiting, most probably related to biliary colic. CAT scan demonstrated the bile duct stone. 2. 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 3. Diabetes mellitus. 4. Microcytic hypochromic anemia. 5. Mild thrombocytopenia. 6. Sepsis. The patient has got bandemia with bands of 32%. 7. Status post sphincterotomy and placement of pancreatic stent, there was a good biliary drainage and now the LFTs are almost normal. 8. Status post sphincterotomy removal of the bile duct stones and placement of biliary stent., After the procedure patient is totally asymptomatic Plan Monitor LFT almost a normal Amylase lipase almost normal Will advance diet laparoscopic cholecystectomy if family agrees Consultation Date/Type/Reason Admit Date/Time Dec 12, 2018 at 14:35 Initial Consult Date 12/13/18 Requesting Provider: REI FONSECA MD Date/Time of Note DATE: 12/17/18 TIME: 13:09 24 HR Interval Summary Free Text/Dictation Patient pain is minimal no fever, no vomiting Constitutional: no complaints, improved Exam/Review of Systems Exam Vitals Vital Signs Date Temp Pulse Resp B/P (MAP) Pulse Ox O2 O2 Flow FiO2 Time Delivery Rate 12/17/18 56 92/50 (64) 08:26 12/17/18 98.0 18 96 Room Air 07:35 12/16/18 8.0 14:22 Intake and Output 12/16/18 12/16/18 12/17/18 1515:00 23:00 07:00 IntakeIntake Total 1805 ml 250 ml BalanceBalance 1805 ml 250 ml Constitutional: alert, oriented, well developed Psych: no complaints, nl mood/affect Head: normocephalic, atraumatic Eyes: nl conjunctiva, EOMI, nl lids, nl sclera, PERRL ENMT: nl external ears & nose, nl lips & teeth, nl nasal mucosa & septum Neck: supple, non-tender Respiratory: clear to auscultation, normal air movement Cardiovascular: regular rate and rhythm, nl pulses Gastrointestinal: soft, nl liver, spleen, non-tender Musculoskeletal: nl extremities to inspection, nl gait and stance Extremities: normal pulses Neurological: [employer] 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 II-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 intact, nl mental status, nl speech, nl strength Skin: nl turgor; No rash or lesions Lymph: nl lymph nodes Results Result Diagram: 12/17/18 0525 12/17/18 0525 Results 24hrs Laboratory Tests Test 12/16/18 13:40 12/16/18 14:26 12/16/18 15:08 12/16/18 17:23 Bedside Glucose 367 H 241 H 194 119 Test 12/16/18 21:16 12/17/18 02:33 12/17/18 05:25 12/17/18 08:14 Bedside Glucose 265 H 270 H 267 H White Blood Count 3.9 L Red Blood Count 3.84 L Hemoglobin 9.7 L Hematocrit 31.4 L Mean Corpuscular 81.8 L Volume Mean Corpuscular 25.3 L Hemoglobin Mean Corpuscular 30.9 L Hemoglobin Concent Red Cell 18.5 H Distribution Width Platelet Count 144 Mean Platelet Volume 9.9 Immature 0.800 H Granulocytes % Neutrophils % 71.8 Lymphocytes % 23.8 Monocytes % 3.3 Eosinophils % 0.0 Basophils % 0.3 Nucleated Red Blood 0.0 Cells % Immature 0.030 Granulocytes # Neutrophils # 2.8 Lymphocytes # 0.9 Monocytes # 0.1 L Eosinophils # 0.0 Basophils # 0.0 Nucleated Red Blood 0.0 Cells # Sodium Level 141 Potassium Level 4.1 Chloride Level 113 H Carbon Dioxide Level 17 L Anion Gap 11 Blood Urea Nitrogen 9 Creatinine 0.57 Est Glomerular > 60 Filtrat Rate mL/min Glucose Level 294 #H Calcium Level 7.8 L Total Bilirubin 0.4 Direct Bilirubin 0.00 # Indirect Bilirubin 0.4 Aspartate Amino 49 H Transf (AST/SGOT) Alanine 27 Aminotransferase (AL T/SGPT) Alkaline Phosphatase 219 H Total Protein 6.0 L Albumin 2.9 L Globulin 3.10 Albumin/Globulin 0.93 Ratio Test 12/17/18 12:08 Bedside Glucose 291 H Medications Medication Current Medications Piperacillin Sod/ Tazobactam Sod 100 ml @ 200 mls/hr Q8 IVPB Last administered on 12/17/18at 06:33; Admin Dose 200 MLS/HR; Start 12/12/18 at 22:00 IV Flush (NS 3 ml) 3 ml PER PROTOCOL IV ; Start 12/12/18 at 17:00 Ondansetron HCl (Zofran Inj) 4 mg Q6H PRN IV NAUSEA/VOMITING; Start 12/12/18 at 17:00 Acetaminophen (Tylenol Tab) 650 mg Q6H PRN PO .PAIN 1-3 OR TEMP; Start 12/12/18 at 17:00 Morphine Sulfate (morphine) 2 mg Q4H PRN IV .SEVERE PAIN 7-10 Last administered on 12/16/18 05:55; Admin Dose 2 MG; Start 12/12/18 at 17:00 Magnesium Hydroxide (Milk Of Mag) 30 ml DAILY PRN PO .CONSTIPATION; Start 12/12/18 at 17:00 Atorvastatin Calcium (Lipitor) 40 mg QHS PO Last administered on 12/16/18 21:18; Admin Dose 40 MG; Start 12/12/18 at 21:00 Escitalopram Oxalate (Lexapro) 10 mg DAILY PO Last administered on 12/17/18 08:24; Admin Dose 10 MG; Start 12/13/18 at 09:00 Midodrine (Proamatine) 10 mg TID PO Last administered on 12/17/18 08:24; Admin Dose 10 MG; Start 12/12/18 at 21:00 Miscellaneous Information 1 ea NOTE XX ; Start 12/12/18 at 18:00 Glucose (Glutose) 15 gm Q15M PRN PO DECREASED GLUCOSE; Start 12/12/18 at 18:00 Glucose (Glutose) 22.5 gm Q15M PRN PO DECREASED GLUCOSE; Start 12/12/18 at 18:00 Dextrose (D50w Syringe) 25 ml Q15M PRN IV DECREASED GLUCOSE; Start 12/12/18 at 18:00 Dextrose (D50w Syringe) 50 ml Q15M PRN IV DECREASED GLUCOSE; Start 12/12/18 at 18:00 Glucagon (Glucagen) 1 mg Q15M PRN IM DECREASED GLUCOSE; Start 12/12/18 at 18:00 Glucose (Glutose) 15 gm Q15M PRN BUCCAL DECREASED GLUCOSE; Start 12/12/18 at 18:00 Diagnostic Test (Pha) (Accu-Chek) 1 ea 02 XX Last administered on 12/17/18at 02:47; Admin Dose 1 EA; Start 12/14/18 at 02:00 Insulin Aspart (Novolog Insulin Pen) NOVOLOG *MILD* ALGORITHM WITH MEALS BEDTIME SC Last administered on 12/17/18 12:09; Admin Dose 5 UNIT; Start at 21:30 Pantoprazole (Protonix Tab) 40 mg DAILY@06 PO Last administered on 12/17/18at 06:32; Admin Dose 40 MG; Start 12/15/18 at 06:00 Tramadol HCl (Ultram) 50 mg Q6H PRN PO MODERATE PAIN LEVEL 4-6 Last administered on 12/15/18at 22:04; Admin Dose 50 MG; Start 12/15/18 at 15:00 Benzocaine (Orajel) 1 applic BID MM Last administered on 12/17/18at 08:24; Admin Dose 1 APPLIC; Start 12/17/18 at 00:00 Insulin Glargine (Lantus) 8 units DAILY@0800 SC ; Start 12/18/18 at 08:00 LAURA RAMIREZ MD Dec 17, 2018 13:10
[2018-12-17 14:21] VITALS: BP 94/57; PULSE 62; RESP 16
[2018-12-17] MEDS: ATORVASTATIN 40 MG TAB PO SCH (20:11)
--- NOTE | 2018-12-17 20:12 | PN ---
Date/Time of Note Date/Time of Note DATE: 12/17/18 TIME: 20:10 Assessment/Plan Lines/Catheters IV Catheter Type (from [facility]): Peripheral IV Dixon in Place (from [facility]): No Assessment/Plan Chief Complaint/Hosp Course 1. Abdominal pain with cholelithiasis, possible choledocholithiasis: DDX: Liver cirrhosis, symptomatic cholelithiasis, choledocholithiasis versus other; Mazin Galo class B: s/p ERCP x2, stone removal and sphincterotomy and pancreatic and CBD stent; abdominal pain resolved -Had lengthy discussion with patient and daughter regarding laparoscopic ch olecystectomy. At this time, patient and daughter continue to prefer to follow with liver specialist prior to any surgical intervention. Can follow with us as outpatient for elective laparoscopic cholecystectomy 2. Liver cirrhosis: currently on CellCept; with 2.4 cm hypoechoic mass in left lobe> MRI noted -Hepatic optimization 3. Transaminitis and hyperbilirubinemia: 2/2 #1 and 2; improved -As above -Trend 4. Pancytopenia: Patient currently on CellCept -Monitor -Supportive, transfuse as needed 5. UTI: -abx per sensitivity -frequent bladder emptying/cath care 6. Diabetes: -Glucose optimization for text Thank you. Patient seen and examined in collaboration with Dr. Shilo Escobar. Subjective 24 Hr Interval Summary Abdominal pain resolved. No fevers, chills, sob, congested cough, cp, palpitations, robbins, dizziness, nausea, vomiting, diarrhea, dysuria. Exam/Review of Systems Vital Signs Vitals Vital Signs Date Temp Pulse Resp B/P (MAP) Pulse Ox O2 O2 Flow FiO2 Time Delivery Rate 12/17/18 98.1 62 16 94/57 (69) 98 Room Air 14:21 12/16/18 8.0 14:22 Intake and Output 12/16/18 12/16/18 12/17/18 1515:00 23:00 07:00 IntakeIntake Total 1805 ml 250 ml BalanceBalance 1805 ml 250 ml Exam Free Text/Dictation Constitutional: alert, oriented Psych: nl mood/affect; No anxiety Head: normocephalic, atraumatic Eyes: nl conjunctiva, EOMI, nl lids, nl sclera ENMT: nl external ears & nose, nl lips & teeth, nl nasal mucosa & septum, mucosa pink and moist Neck: supple, non-tender Respiratory: normal air movement; No congested cough Cardiovascular: regular rate and rhythm Gastrointestinal: soft, distended (min), nontender Genitourinary - Female: nl external genitalia Musculoskeletal: nl extremities to inspection, nl gait and stance Extremities: normal pulses Neurological: nl mental status, nl speech, nl strength Skin: other (min jaundice) Results Result Diagram: 12/17/18 0525 12/17/18 0525 JOAO MORRIS NP Dec 17, 2018 20:12
[2018-12-17 20:28] VITALS: BP 92/53; PULSE 68; RESP 18
[2018-12-18] VITALS (11 sets, daily range): BP systolic 85–100; BP diastolic 50–61; PULSE 64–75; RESP 16–19
[2018-12-18] MEDS: ACCU-CHEK XX SCH (02:29)
[2018-12-18] MEDS: PIPER-TAZO 3.375 GM IV (PMX) 100 ML IVPB SCH ×2 (05:59→14:09)
[2018-12-18] MEDS: PANTOPRAZOLE (EC) 40 MG TAB PO SCH (05:59)
[2018-12-18] MEDS ORDERED: INSULIN GLARGINE [LANTus] (100 UNITS/ML) SYG SC SCH (08:00)
[2018-12-18] MEDS: ESCITALOPRAM 10 MG TAB PO SCH (08:07)
[2018-12-18] MEDS: INSULIN ASPART [NOVOLOG] 3 ML PEN SC SCH ×4 (08:08→12:22)
[2018-12-18] MEDS: MIDODRINE 5 MG TAB PO SCH ×2 (08:08→14:08)
[2018-12-18] MEDS: BENZOCAINE 10% 7 GM GEL MM SCH (08:10)
--- NOTE | 2018-12-18 08:40 | PDOCDIS ---
Discharge Instructions CONDITION [id number] Patient Condition: [id number] Stable HOME CARE INSTRUCTIONS: [id number] Diet Instructions: [id number] Low Fat /Cholesterol ACTIVITY: [id number] Activity Restrictions: [id number] Slowly Increase Activity Rest between Activity Avoid heavy lifting FOLLOW UP/APPOINTMENTS Follow-up Plan liver specialist to decide about elective cholecystectomy PCP 1 week FABI OSORIO Dec 18, 2018 08:40
[2018-12-18] MEDS ORDERED: METR500T PO ×2 (08:46→08:53)
[2018-12-18] MEDS ORDERED: CIPR500T4 PO ×2 (08:46→08:53)
--- NOTE | 2018-12-18 08:47 | DS ---
Date/Time of Note Date/Time of Note DATE: 12/18/18 TIME: 08:46 Discharge Summary Admission/Discharge Info Admit Date/Time Dec 12, 2018 at 14:35 Discharge Date/Time Discharge Diagnosis choledocholithiasis. Patient Condition: Stable Consults Dr Josue, GI , Dr Escobar, surgery Procedures 12/13/18: ERCP, sphincterotomy placement of a pancreatic stent. 12/16/2018 Status post 2nd sphincterotomy removal of the bile duct stones and placement of biliary stent Hospital Course This is a 63-year-old female with a past medical history of autoimmune cirrhosis, followed by stator connector currently on mycophenolate, history of stroke, ascites, hepatic encephalopathy, diabetes, degenerative joint disease of the cervical spine, presented to the emergency department complaining of epigastric pain for past few days. The patient was also having some episodes of nausea and vomiting. The patient also describes she had some loose stools. She denied any fevers and chills. According to the patient, she has loss of appetite for the past few days. The patient came to the emergency department for further evaluation. On admission, vital signs were blood pressure 106/66, pulse 77, afebrile, saturating 99%. Labs showed BMP within normal limit; however, total bilirubin 3.1, direct bilirubin 1.90. AST is 75, ALT is 50, alkaline phosphatase 241. White count 5.4, hemoglobin 10.4, platelet count 139. The patient had a liver and gallbladder ultrasound that showed liver cirrhosis, questionable 2.4 cm hyperechoic mass in the left lobe of the liver, multiple stones within the gallbladder, slight amount of ascites. The patient had a CT of the abdomen and pelvis that showed cholelithiasis, focal calcification of co mmon bile duct represents choledocholithiasis, mild common bile ductal dilatation up to 10 mm, She was started on Zosyn and was admitted for further management. PAST MEDICAL HISTORY: 1. Autoimmune cirrhosis. 2. History of stroke recovered fully. 3. Diabetes type 2. 4. History of hepatic encephalopathy. 5. Cervical disease of the spine. 6. Atherosclerotic aorta. 7. Degenerative joint disease of the C-spine. 8. History of L5 vertebral fracture. Impression: 1. Abdominal pain, nausea, vomiting likely secondary to choledocholithiasis. MRI abdomen shows: Cholelithiasis with mild gallbladder distension. There is no substantial gallbladder wall thickening and there is no pericholecystic fluid. Correlate with clinical signs of cholecystitis. Mild common bile duct dilatation without evidence of choledocholithiasis. Cirrhosis with scattered bands of fibrosis throughout the liver. 2. Symptomatic cholelithiasis. Post ERCP with a sphincterotomy and placement of stent 3. Abnormal liver function tests secondary to #1. 4. Thrombocytopenia, likely secondary to splenic sequestration. 5. History of autoimmune cirrhosis. 6. Chronic hypotension, on midodrine. 7. History of ascites. 8. Questionable liver mass on the CAT scan. However MRI is negative 9. Diabetes type 2. 10. Osteoporosis. 11. History of L5 fracture. 12. Depression. 13. Hyperlipidemia. 14. UTI During hospitalization patient was seen few specialists. dr Josue , GI, place a stent and perform ERCP on 12/13/18 after MRCP showed choledocholithiasis and cholecystitis. Pt was on light diet and her pain was controlled.After sphincterotomy and placement of pancreatic stent, there was a good biliary drainage and now the LFTs are almost normal. Pt was on advanced diet.12/13/2018 Dr Josue performed second sphincterotomy with removal of the bile duct stones and placement of biliary stent. After the procedure patient is totally asymptomatic. Dr Escobar followed closely patient and offered her a cholecystectomy, but pt. and her daughter said they need to talk to hepatology and declined procedure. Pt reported no pain, good appetite and ambulation. She was dc home with antibiotocs. Home Meds Active Scripts Ondansetron Hcl* (Zofran*) 4 Mg Tab, 4 MG PO Q6H PRN for NAUSEA AND OR VOMITING for 30 Days, TAB Prov:REI FONSECA MD 12/18/18 Lactobacillus Acidophilus* (Lactinex*) 1 Tab Chew, 1 TAB PO TID for 10 Days, TAB Prov:FABI OSORIO 12/18/18 Ciprofloxacin Hcl* (Ciprofloxacin Hcl*) 500 Mg Tablet, 500 MG PO BID, #10 TAB Prov:FABI OSORIO 12/18/18 Metronidazole* (Flagyl*) 500 Mg Tablet, 500 MG PO BID for 10 Days, TAB Prov:FABI OSORIO 12/18/18 Reported Medications Escitalopram Oxalate* (Escitalopram Oxalate*) 10 Mg Tablet, 10 MG PO DAILY, #30 TAB 12/12/18 Atorvastatin* (Atorvastatin*) 40 Mg Tablet, 40 MG PO QHS, #30 TAB 12/12/18 Omeprazole* (Omeprazole*) 40 Mg Capsule.dr, 40 MG PO DAILY, #30 CAP 12/12/18 Midodrine* (Midodrine*) 10 Mg Tablet, 10 MG PO TID, TAB 12/12/18 Alendronate Sodium* (Fosamax*) 70 Mg Tablet, 70 MG PO Q SAT, #4 TAB 12/12/18 Mycophenolate Mofetil* (Mycophenolate Mofetil*) 500 Mg Tablet, 500 MG PO DAILY, TAB 12/12/18 Lactulose (Constulose) 10 Gm/15 Ml Solution, 15 ML PO NEEDED 12/12/18 Insulin Glargine,Hum.rec.anlog (Basaglar Kwikpen U-100) 100 Unit/1 Ml Insuln.pen, 20 UNIT SC QHS, EA CHECK IF BS WAS HIGH SHE CAN USE 30 UNITS 12/12/18 Discontinued Reported Medications Lisinopril* (Lisinopril*) 5 Mg Tablet, 5 MG PO DAILY, #30 TAB 12/12/18 Spironolactone* (Aldactone*) 50 Mg Tablet, 50 MG PO DAILY, TAB 12/12/18 Metolazone* (Metolazone*) 2.5 Mg Tablet, 2.5 MG PO DAILY, TAB TAKE Q ,,WED. 12/12/18 Furosemide* (Furosemide*) 40 Mg Tablet, 40 MG PO BID, TAB 12/12/18 Spironolactone* (Aldactone*) 50 Mg Tablet, 50 MG PO DAILY, #30 TAB 11/26/17 Omeprazole* (Omeprazole*) 20 Mg Capsule.dr, 20 MG PO DAILY, #30 CAP 11/26/17 Mycophenolate Mofetil* (Cellcept*) 500 Mg Tablet, 500 MG PO BID, #60 TAB 11/26/17 Insulin Glargine* (Lantus*) 100 Unit/Ml Soln, 10 UNIT SC QAM, #1 VIAL 11/26/17 Furosemide* (Furosemide*) 40 Mg Tablet, 40 MG PO BID, TAB 11/26/17 Discontinued Scripts Hydrocodone/Acetaminophen ([place] 5-325 Tablet) 1 Each Tablet, 1 TAB PO Q6H PRN for PAIN, #20 TAB Prov:RYAN WEBB. DO 09/24/18 Dicyclomine HCl (Dicyclomine HCl) 10 Mg Capsule, 20 MG PO TID PRN for ABDOMINAL CRAMPING, #20 CAP Prov:RYAN WEBB A. DO 09/24/18 Ondansetron Hcl* (Zofran*) 4 Mg Tablet, 4 MG PO Q6H for NAUSEA AND/OR VOMITING, #30 TAB Prov:MANUEL RANGEL MD 07/22/18 Polyethylene Glycol* (Miralax*) 17 Gm Powd.pack, 17 GM PO DAILY, #7 Prov:MANUEL RANGEL MD 07/22/18 Tramadol HCl (Tramadol HCl) 50 Mg Tablet, 50 MG PO Q4 PRN for PAIN, #20 TAB Prov:ZEUS STYLES PA-C 01/31/18 Methylprednisolone* (Medrol* DOSE PACK) 4 Mg/Dose-Pack Tab.ds.pk, 4 MG PO . DIRECTED, #1 PACKET Prov:ZEUS STYLES PA-C 01/31/18 Naproxen* (Naprosyn*) 500 Mg Tablet, 500 MG PO BID PRN for PAIN AND/OR INFLAMMATION, #30 TAB Prov:ZEUS STYLES PA-C 01/31/18 Cyclobenzaprine Hcl* (Cyclobenzaprine Hcl*) 10 Mg Tablet, 10 MG PO TID, #15 TAB Prov:ZEUS STYLES PA-C 01/31/18 Follow-up Plan liver specialist to decide about elective cholecystectomy PCP 1 week Primary Care Provider Not On Staff Doctor Pending Labs Laboratory Tests Test 12/17/18 12:08 12/17/18 17:20 12/17/18 21:48 12/18/18 02:14 Bedside 291 336 241 263 Glucose mg/dL (70-220) mg/dL (70-220) mg/dL (70-220) mg/dL (70-220) Test 12/18/18 05:49 12/18/18 08:02 White Blood 5.0 Count 10^3/ul (4.8-10 .8) Red Blood 3.61 Count 10^6/ul (4.20-5 .40) Hemoglobin 9.3 g/dl (12.0-16.0 ) Hematocrit 29.2 % (37.0-47.0) Mean 80.9 Corpuscular fl (82.0-101.0) Volume Mean 25.8 Corpuscular pg (29.0-33.0) Hemoglobin Mean 31.8 Corpuscular g/dl (32.0-37.0 Hemoglobin Conc ) ent Red Cell 19.1 Distribution % (11.5-14.5) Width Platelet Count 176 10^3/UL (140-41 5) Mean Platelet 10.0 Volume fl (7.4-10.4) Immature 1.000 Granulocytes % % (0.001-0.429) Neutrophils % 62.8 % (39.0-77.0) Lymphocytes % 29.4 % (15.0-51.0) Monocytes % 6.0 % (0.0-11.0) Eosinophils % 0.4 % (0.0-7.0) Basophils % 0.4 % (0.0-2.0) Nucleated Red 0.0 Blood Cells % /100WBC (0.0-0. 0) Immature 0.050 Granulocytes # 10^3/ul (0.0-0. 031) Neutrophils # 3.2 10^3/ul (1.6-7. 5) Lymphocytes # 1.5 10^3/ul (0.8-2. 9) Monocytes # 0.3 10^3/ul (0.3-0. 9) Eosinophils # 0.0 10^3/ul (0.0-0. 5) Basophils # 0.0 10^3/ul (0.0-0. 1) Nucleated Red 0.0 Blood Cells # 10^3/ul (0.0-0. 0) Sodium Level 139 mmol/L (135-144 ) Potassium 4.1 Level mmol/L (3.5-5.1 ) Chloride Level 111 mmol/L (97-110) Carbon Dioxide 20 Level mmol/L (21-31) Anion Gap 8 (5-13) Blood Urea 12 mg/dl (7-20) Nitrogen Creatinine 0.63 mg/dl (0.44-1.0 0) Est Glomerular > 60 Filtrat mL/min (>60) Rate mL/min Glucose Level 246 mg/dl (70-220) Calcium Level 8.2 mg/dl (8.4-10.2 ) Bedside 223 Glucose mg/dL (70-220) FABI OSORIO Dec 18, 2018 08:47
[2018-12-18] MEDS ORDERED: LACTINEX PO (08:53)
[2018-12-18] MEDS: MINERAL OIL 30ML CUP PO ONE ×2 (12:20→12:47)
--- NOTE | 2018-12-18 13:22 | PN ---
Date/Time of Note Date/Time of Note DATE: 12/18/18 TIME: 13:21 Assessment/Plan Lines/Catheters IV Catheter Type (from [facility]): Peripheral IV Dixon in Place (from [facility]): No Assessment/Plan Chief Complaint/Hosp Course 1. Abdominal pain with cholelithiasis, possible choledocholithiasis: DDX: Liver cirrhosis, symptomatic cholelithiasis, choledocholithiasis versus other; Mazin Galo class B: s/p ERCP x2, stone removal and sphincterotomy and pancreatic and CBD stent; abdominal pain resolved -Had lengthy discussion with patient and daughter regarding laparoscopic ch olecystectomy. At this time, patient and daughter continue to prefer to follow with liver specialist prior to any surgical intervention. Can follow with us as outpatient for elective laparoscopic cholecystectomy 2. Liver cirrhosis: currently on CellCept; with 2.4 cm hypoechoic mass in left lobe> MRI noted -Hepatic optimization 3. Transaminitis and hyperbilirubinemia: 2/2 #1 and 2; improved -As above -Trend 4. Pancytopenia: Patient currently on CellCept -Monitor -Supportive, transfuse as needed 5. UTI: -abx per sensitivity -frequent bladder emptying/cath care 6. Diabetes: -Glucose optimization for text Thank you. Patient seen and examined in collaboration with Dr. Shilo Escobar. Subjective 24 Hr Interval Summary No abdominal pain. No fevers, chills, sob, congested cough, cp, palpitations, robbins, dizziness, nausea, vomiting, diarrhea, dysuria. Exam/Review of Systems Vital Signs Vitals Vital Signs Date Temp Pulse Resp B/P (MAP) Pulse Ox O2 O2 Flow FiO2 Time Delivery Rate 12/18/18 72 98/58 (71) 10:57 12/18/18 98.2 16 98 08:06 12/17/18 Room Air 14:21 12/16/18 8.0 14:22 Intake and Output 12/17/18 12/17/18 12/18/18 1515:00 23:00 07:00 IntakeIntake Total 1000 ml 520 ml 1500 ml BalanceBalance 1000 ml 520 ml 1500 ml Exam Free Text/Dictation Constitutional: alert, oriented Psych: nl mood/affect; No anxiety Head: normocephalic, atraumatic Eyes: nl conjunctiva, EOMI, nl lids, nl sclera ENMT: nl external ears & nose, nl lips & teeth, nl nasal mucosa & septum, mucosa pink and moist Neck: supple, non-tender Respiratory: normal air movement; No congested cough Cardiovascular: regular rate and rhythm Gastrointestinal: soft, distended (min), nontender Genitourinary - Female: nl external genitalia Musculoskeletal: nl extremities to inspection, nl gait and stance Extremities: normal pulses Neurological: nl mental status, nl speech, nl strength Skin: other (min jaundice) Results Result Diagram: 12/18/18 0549 12/18/18 0549 JOAO MORRIS NP Dec 18, 2018 13:21
--- NOTE | 2018-12-18 14:48 | CONS ---
Assessment/Plan Assessment/Plan Assessment/Plan (Daily) Assessment/Plan (Daily) IMPRESSION: 1. Abdominal pain with nausea and vomiting, most probably related to biliary colic. CAT scan demonstrated the bile duct stone. 2. 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 3. Diabetes mellitus. 4. Microcytic hypochromic anemia. 5. Mild thrombocytopenia. 6. Sepsis. The patient has got bandemia with bands of 32%. 7. Status post sphincterotomy and placement of pancreatic stent, there was a good biliary drainage and now the LFTs are almost normal. 8. Status post sphincterotomy removal of the bile duct stones and placement of biliary stent., After the procedure patient is totally asymptomatic Plan Monitor LFT almost a normal Amylase lipase almost normal Will advance diet laparoscopic cholecystectomy if family agrees Patient was on immunosuppressive medication as an outpatient however it is not continued in the hospital Consultation Date/Type/Reason Admit Date/Time Dec 12, 2018 at 14:35 Initial Consult Date 12/13/18 Requesting Provider: REI FONSECA MD Date/Time of Note DATE: 12/18/18 TIME: 14:48 24 HR Interval Summary Constitutional: improved Exam/Review of Systems Exam Vitals Vital Signs Date Temp Pulse Resp B/P (MAP) Pulse Ox O2 O2 Flow FiO2 Time Delivery Rate 12/18/18 75 93/56 (68) 14:17 12/18/18 98.2 16 99 13:59 12/17/18 Room Air 14:21 12/16/18 8.0 14:22 Intake and Output 12/17/18 12/17/18 12/18/18 1515:00 23:00 07:00 IntakeIntake Total 1000 ml 520 ml 1500 ml BalanceBalance 1000 ml 520 ml 1500 ml Constitutional: alert, oriented, well developed Psych: no complaints, nl mood/affect Head: normocephalic, atraumatic Eyes: nl conjunctiva, EOMI, nl lids, nl sclera, PERRL ENMT: nl external ears & nose, nl lips & teeth, nl nasal mucosa & septum Neck: supple, non-tender Respiratory: clear to auscultation, normal air movement Cardiovascular: regular rate and rhythm, nl pulses Gastrointestinal: soft, nl liver, spleen, non-tender Musculoskeletal: nl extremities to inspection, nl gait and stance Extremities: normal pulses Neurological: PHOTOLITHOGRAPHER II-XII intact, nl mental status, nl speech, nl strength Skin: nl turgor; No rash or lesions Lymph: nl lymph nodes Results Result Diagram: 12/18/18 0549 12/18/18 0549 Results 24hrs Laboratory Tests Test 12/17/18 17:20 12/17/18 21:48 12/18/18 02:14 12/18/18 05:49 Bedside Glucose 336 H 241 H 263 H White Blood Count 5.0 # Red Blood Count 3.61 L Hemoglobin 9.3 L Hematocrit 29.2 L Mean Corpuscular 80.9 L Volume Mean Corpuscular 25.8 L Hemoglobin Mean Corpuscular 31.8 L Hemoglobin Concent Red Cell 19.1 H Distribution Width Platelet Count 176 # Mean Platelet Volume 10.0 Immature 1.000 H Granulocytes % Neutrophils % 62.8 Lymphocytes % 29.4 Monocytes % 6.0 Eosinophils % 0.4 Basophils % 0.4 Nucleated Red Blood 0.0 Cells % Immature 0.050 H Granulocytes # Neutrophils # 3.2 Lymphocytes # 1.5 Monocytes # 0.3 Eosinophils # 0.0 Basophils # 0.0 Nucleated Red Blood 0.0 Cells # Sodium Level 139 Potassium Level 4.1 Chloride Level 111 H Carbon Dioxide Level 20 L Anion Gap 8 Blood Urea Nitrogen 12 Creatinine 0.63 Est Glomerular > 60 Filtrat Rate mL/min Glucose Level 246 H Calcium Level 8.2 L Test 12/18/18 08:02 12/18/18 11:52 Bedside Glucose 223 H 147 Medications Medication Current Medications Piperacillin Sod/ Tazobactam Sod 100 ml @ 200 mls/hr Q8 IVPB Last administered on 12/18/18at 14:09; Admin Dose 200 MLS/HR; Start 12/12/18 at 22:00 IV Flush (NS 3 ml) 3 ml PER PROTOCOL IV ; Start 12/12/18 at 17:00 Ondansetron HCl (Zofran Inj) 4 mg Q6H PRN IV NAUSEA/VOMITING Last administered on 12/18/18at 14:11; Admin Dose 4 MG; Start 12/12/18 at 17:00 Acetaminophen (Tylenol Tab) 650 mg Q6H PRN PO .PAIN 1-3 OR TEMP; Start 12/12/18 at 17:00 Morphine Sulfate (morphine) 2 mg Q4H PRN IV .SEVERE PAIN 7-10 Last administered on 3/22/19at 05:55; Admin Dose 2 MG; Start 12/12/18 at 17:00 Magnesium Hydroxide (Milk Of Mag) 30 ml DAILY PRN PO .CONSTIPATION; Start 12/12/18 at 17:00 Atorvastatin Calcium (Lipitor) 40 mg QHS PO Last administered on 12/17/18 20:11; Admin Dose 40 MG; Start 12/12/18 at 21:00 Escitalopram Oxalate (Lexapro) 10 mg DAILY PO Last administered on 12/18/18 08:07; Admin Dose 10 MG; Start 12/13/18 at 09:00 Midodrine (Proamatine) 10 mg TID PO Last administered on 12/18/18 14:08; Admin Dose 10 MG; Start 12/12/18 at 21:00 Miscellaneous Information 1 ea NOTE XX ; Start 12/12/18 at 18:00 Glucose (Glutose) 15 gm Q15M PRN PO DECREASED GLUCOSE; Start 12/12/18 at 18:00 Glucose (Glutose) 22.5 gm Q15M PRN PO DECREASED GLUCOSE; Start 12/12/18 at 18:00 Dextrose (D50w Syringe) 25 ml Q15M PRN IV DECREASED GLUCOSE; Start 12/12/18 at 18:00 Dextrose (D50w Syringe) 50 ml Q15M PRN IV DECREASED GLUCOSE; Start 12/12/18 at 18:00 Glucagon (Glucagen) 1 mg Q15M PRN IM DECREASED GLUCOSE; Start 12/12/18 at 18:00 Glucose (Glutose) 15 gm Q15M PRN BUCCAL DECREASED GLUCOSE; Start 12/12/18 at 18:00 Diagnostic Test (Pha) (Accu-Chek) 1 ea 02 XX Last administered on 12/18/18at 02:29; Admin Dose 1 EA; Start 12/14/18 at 02:00 Insulin Aspart (Novolog Insulin Pen) NOVOLOG *MILD* ALGORITHM WITH MEALS BEDTIME SC Last administered on 12/18/18 12:22; Admin Dose 1 UNIT; Start 12/13/18 at 21:30 Pantoprazole (Protonix Tab) 40 mg DAILY@06 PO Last administered on 12/18/18 05:59; Admin Dose 40 MG; Start 12/15/18 at 06:00 Tramadol HCl (Ultram) 50 mg Q6H PRN PO MODERATE PAIN LEVEL 4-6 Last administered on 12/15/18at 22:04; Admin Dose 50 MG; Start 12/15/18 at 15:00 Benzocaine (Orajel) 1 applic BID MM Last administered on 12/18/18at 08:10; Admin Dose 1 APPLIC; Start 12/17/18 at 00:00 Insulin Glargine (Lantus) 8 units DAILY@0800 SC Last administered on 12/18/18 08:09; Admin Dose 8 UNITS; Start 12/18/18 at 08:00 Insulin Aspart (Novolog Insulin Pen) 5 unit WITH MEALS SC Last administered on 12/18/18at 12:21; Admin Dose 5 UNIT; Start 12/17/18 at 17:35 LAURA RAMIREZ MD Dec 18, 2018 14:48
[2018-12-18] MEDS ORDERED: ONDA4TAB13 PO (15:47)
== END 2018-12-18 16:20 | disposition home or self-care (01) | DRG 444 ==
LOC: E/R 09:32 → PP2 14:35
PROVIDERS: ADMIT Internal Medicine; ATTEND Internal Medicine
PROC: 0F7D8DZ Dilation of Pancreatic Duct with Intraluminal Device, Via Natural or Artificial Opening Endoscopic (ICD-10-PCS; principal; 2018-12-13 10:30)
PROC: 0FC98ZZ Extirpation of Matter from Common Bile Duct, Via Natural or Artificial Opening Endoscopic (ICD-10-PCS; 2018-12-16)
DX: K80.70 Calculus of gallbladder and bile duct without cholecystitis without obstruction (principal); K83.1 Obstruction of bile duct; N39.0 Urinary tract infection, site not specified; D61.818 Other pancytopenia; E11.9 Type 2 diabetes mellitus without complications; I10 Essential (primary) hypertension; E78.5 Hyperlipidemia, unspecified; K74.69 Other cirrhosis of liver; F32.9 Major depressive disorder, single episode, unspecified; I95.89 Other hypotension; D73.89 Other diseases of spleen; Z86.73 Personal history of transient ischemic attack (TIA), and cerebral infarction without residual deficits; M81.0 Age-related osteoporosis without current pathological fracture; F41.9 Anxiety disorder, unspecified
CPT/HCPCS: 36415; 74177; 74181; 74330; 76705; 80048; 80053; 81001; 82105; 82150; 82962; 83690; 83735; 84100; 85025; 85610; 87086; 90686; 93005; 96374; 96375; C2617; C9113; J0744; J1100; J1170; J1815; J2250; J2270; J2370; J2405; J2543; J2765; J3010; J7030; J7040; J7042; J7050; P9045; Q9967

== ENCOUNTER 2018-12-23 08:17 | Inpatient (IN) | payer OTHER ==
[~2018-12-23] VITALS: Ht 157.5 cm; Wt 57.3 kg
[~2018-12-23 08:17] MED LIST changes: +ALEN70TA5 PO; +ATOR40TA68 PO; +CIPR500T4 PO; -CYCL10TA7 PO; -DICY10CA40 PO; +ESCI10TA48 PO; -FURO40TA4 PO; -HYDR-4011 PO; +INSU100I33 SC; +LACT10SO53 PO; +LACTINEX PO; -LANT3I SC; -MED4DP PO; +METR500T PO; +MIDO10TA PO; -MYCO500T PO; +MYCO500T3 PO; -NAPR-985 PO; -OMEP20CA16 PO; +OMEP40CA6 PO; +ONDA4TAB13 PO; -ONDA4TAB8 PO; -POLY17PO6 PO; -SPIR50TA PO; -TRAM50TA2 PO
[2018-12-23] MEDS ORDERED: ONDANSETRON 4 MG INJ IV STA (08:58)
[2018-12-23] MEDS ORDERED: SOD CHLORIDE 0.9% 1,000 ML IV STA ×2 (08:58→12:23)
--- NOTE | 2018-12-23 10:02 | ERD ---
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 The patient also indicates she has had multiple episodes of nonbloody nonbilious emesis. The patient had been admitted to the hospital December 12 roughly 11 days prior to arrival for choledocholithiasis. The patient underwent an ERCP on December 13, 2018 however the patient had a pancreatic stent that had been deployed and a precut sphincterotomy was not able to be performed and it was suggested that the edema subsides for a few days. The patient had subsequently been discharged but she indicates that she has been unable to tolerate any oral intake since discharge. She said no fevers or shaking or chills. She denies any hemoptysis hematemesis or melanotic stools. She states that the abdominal pain is more prominent in the right upper quadrant but does not radiate to the back. The pain is 10 out of 10 in intensity and she has not taken any analgesic medication. ROS All systems reviewed and are negative except as per history of present illness. Medications Home Meds Active Scripts Ondansetron Hcl* (Zofran*) 4 Mg Tab, 4 MG PO Q6H PRN for NAUSEA AND OR VOMITING for 30 Days, TAB Prov:REI FONSECA MD 12/18/18 Lactobacillus Acidophilus* (Lactinex*) 1 Tab Chew, 1 TAB PO TID for 10 Days, TAB Prov:FABI OSORIO 12/18/18 Ciprofloxacin Hcl* (Ciprofloxacin Hcl*) 500 Mg Tablet, 500 MG PO BID, #10 TAB Prov:FABI OSORIO 12/18/18 Metronidazole* (Flagyl*) 500 Mg Tablet, 500 MG PO BID for 10 Days, TAB Prov:FABI OSORIO 12/18/18 Reported Medications Escitalopram Oxalate* (Escitalopram Oxalate*) 10 Mg Tablet, 10 MG PO DAILY, #30 TAB 12/12/18 Atorvastatin* (Atorvastatin*) 40 Mg Tablet, 40 MG PO QHS, #30 TAB 12/12/18 Omeprazole* (Omeprazole*) 40 Mg Capsule.dr, 40 MG PO DAILY, #30 CAP 12/12/18 Midodrine* (Midodrine*) 10 Mg Tablet, 10 MG PO TID, TAB 12/12/18 Alendronate Sodium* (Fosamax*) 70 Mg Tablet, 70 MG PO Q SAT, #4 TAB 12/12/18 Mycophenolate Mofetil* (Mycophenolate Mofetil*) 500 Mg Tablet, 500 MG PO DAILY, TAB 12/12/18 Lactulose (Constulose) 10 Gm/15 Ml Solution, 15 ML PO NEEDED 12/12/18 Insulin Glargine,Hum.rec.anlog (Basaglar Kwikpen U-100) 100 Unit/1 Ml Insuln.pen, 20 UNIT SC QHS, EA CHECK IF BS WAS HIGH SHE CAN USE 30 UNITS 12/12/18 Discontinued Reported Medications Lisinopril* (Lisinopril*) 5 Mg Tablet, 5 MG PO DAILY, #30 TAB 12/12/18 Spironolactone* (Aldactone*) 50 Mg Tablet, 50 MG PO DAILY, TAB 12/12/18 Metolazone* (Metolazone*) 2.5 Mg Tablet, 2.5 MG PO DAILY, TAB TAKE Q TUES,TH,FRI. 12/12/18 Furosemide* (Furosemide*) 40 Mg Tablet, 40 MG PO BID, TAB 12/12/18 Allergies Allergies: Coded Allergies: No Known Allergy (Unverified , 12/23/18) PMhx/Soc History of Surgery: Yes (ERCP, c section x 2) Anesthesia Reaction: No Hx Neurological Disorder: No Hx Respiratory Disorders: No Hx Cardiac Disorders: Yes (DM) Hx Psychiatric Problems: No Hx Miscellaneous Medical Probl: Yes (liver cirhossis) Hx Alcohol Use: No Hx Substance Use: No Hx Tobacco Use: No Smoking Status: Never smoker Physical Exam Vitals Vital Signs Date Temp Pulse Resp B/P (MAP) Pulse Ox O2 O2 Flow FiO2 Time Delivery Rate 12/23/18 59 19 80/51 (61) 98 Room Air 12:00 12/23/18 68 19 93/63 (73) 98 Room Air 09:08 12/23/18 98.1 74 20 91/58 (69) 98 08:24 Physical Exam Constitutional:Well-developed. Well-nourished. HEENT:Normocephalic. Atraumatic.Pupils were equal round reactive to light. Very dry mucous membranes.No tonsillar exudates. Neck: No nuchal rigidity. No lymphadenopathy. No posterior cervical spine tenderness or step-offs. Respiratory: Not using accessory muscles of respiration.Lungs were clear to auscultation bilaterally. No rhonchi. No rales. No wheezing. Cardiovascular: Regular rate regular rhythm.No murmurs. No rubs were ap preciated.S1, S2 normal. Distal pulses are palpable 2+ bilaterally. GI: Abdomen was soft. Right upper quadrant tenderness with negative Pradhan sign. No tenderness the right lower quadrant psoas sign and obturator sign were negative.. Non Distended. No pulsatile abdominal masses or bruits. No rebound. No guarding. Bowel sounds were present and normal. Muscle skeletal: Full range of motion of both the upper and lower extremities bilaterally.Normal muscle tone.No assymetrical calf tenderness or swelling. Skin: No petechia, no purpura. No lesions on the palms or the soles of the feet. No maculopapular rash. NEURO: Patient was alert, awake, orientated x3.No facial droop. Gait observed and normal with no ataxia.Speech had regular rate and rhythm. No focal neurological deficits. Result Diagram: 12/23/18 0858 12/23/18 1023 Results 24 hrs Laboratory Tests Test 12/23/18 08:58 12/23/18 10:23 White Blood Count 9.8 10^3/ul Red Blood Count 4.35 10^6/ul Hemoglobin 11.4 g/dl Hematocrit 35.1 % Mean Corpuscular Volume 80.7 fl Mean Corpuscular Hemoglobin 26.2 pg Mean Corpuscular Hemoglobin Concent 32.5 g/dl Red Cell Distribution Width 19.0 % Platelet Count 331 10^3/UL Mean Platelet Volume 10.5 fl Immature Granulocytes % 0.900 % Neutrophils % 67.4 % Lymphocytes % 22.5 % Monocytes % 7.5 % Eosinophils % 1.1 % Basophils % 0.6 % Nucleated Red Blood Cells % 0.0 /100WBC Immature Granulocytes # 0.090 10^3/ul Neutrophils # 6.6 10^3/ul Lymphocytes # 2.2 10^3/ul Monocytes # 0.7 10^3/ul Eosinophils # 0.1 10^3/ul Basophils # 0.1 10^3/ul Nucleated Red Blood Cells # 0.0 10^3/ul Prothrombin Time 13.5 Sec Prothrombin Time Ratio 1.1 INR International Normalized Ratio 1.02 Activated Partial Thromboplast Time 26.4 Sec Sodium Level 136 mmol/L Potassium Level 3.0 mmol/L Chloride Level 88 mmol/L Carbon Dioxide Level 33 mmol/L Anion Gap 15 Blood Urea Nitrogen 24 mg/dl Creatinine 1.17 mg/dl Est Glomerular Filtrat Rate mL/min 47 mL/min Glucose Level 178 mg/dl Calcium Level 9.9 mg/dl Total Bilirubin 0.8 mg/dl Direct Bilirubin 0.00 mg/dl Indirect Bilirubin 0.8 mg/dl Aspartate Amino Transf (AST/SGOT) 42 IU/L Alanine Aminotransferase (ALT/SGPT) 16 IU/L Alkaline Phosphatase 181 IU/L Troponin I < 0.012 ng/ml Total Protein 7.4 g/dl Albumin 3.8 g/dl Globulin 3.60 g/dl Albumin/Globulin Ratio 1.05 Amylase Level 91 U/L Lipase 221 U/L Current Medications Medications Dose Sig/Rohit Start Time Status Last (Trade) Ordered Route PRN Stop Time Admin Dose Reason Admin Sodium 1,000 ml @ Q1H STAT 12/23/18 DC 12/23/18 Chloride 1,000 mls/hr IV 08:58 09:40 12/23/18 09:57 Ondansetron 4 mg ONCE STAT 12/23/18 DC 12/23/18 HCl (Zofran IV 08:58 09:54 Inj) 12/23/18 08:59 Sodium 100 ml @ ud STK-MED 12/23/18 DC 12/23/18 Chloride ONCE .ROUTE 12:03 12:19 12/23/18 12:04 Iohexol 150 ml STK-MED 12/23/18 DC 12/23/18 (Omnipaque ONCE .ROUTE 12:03 12:18 300mg/ ml) 12/23/18 12:04 Sodium 1,000 ml @ Q1H STAT 12/23/18 12/23/18 Chloride 1,000 mls/hr IV 12:23 12:41 12/23/18 13:22 Potassium 20 meq ONCE STAT 12/23/18 DC 12/23/18 Chloride PO 12:23 12:41 (Klor-Con 20) 12/23/18 12:28 Ondansetron 4 mg ER BRIDGE 12/23/18 HCl (Zofran PRN IV 13:00 Inj) NAUSEA/VOMITI 12/24/18 12:59 NG 650 mg ER BRIDGE 12/23/18 Acetaminophen PRN PO 13:00 (Tylenol .MILD PAIN 12/24/18 12:59 Tab) 1-3 OR TEMP Procedures/MDM This patient presented to the emergency department with abdominal pain and was seen and evaluated by myself. My differential diagnosis included but was not limited to abdominal aortic aneurysm, appendicitis, pancreatitis, perforated peptic ulcer, perforated viscus, Boerhaaves syndrome or visceral pain such as diverticulitis, DKA, esophagitis, hepatitis or bowel obstruction. The patient was placed on a language path, continuous pulse oximetry, and IV access was established by nursing staff. The patient was given intravenous morphine and Zofran for analgesic control I obtained a 12-lead EKG tracing to rule out for atypical myocardial ischemia. 12 Lead EKG tracing ordered and reviewed by myself showed: Normal sinus rhythm of 67 bpm and no arrhythmia. HI interval normal. QRS duration normal. No ST segment elevation No ST segment depression. No changes consistent with acute ischemia. The patient received antiemetics but was unable to tolerate oral intake. Therefore I did feel she required admission for IV fluid resuscitation. The patient was hypokalemic and supplemented with potassium orally. However previously stated she was unable to tolerate oral intake and was refusing IV potassium at this time. I obtained a chest radiograph and there is no evidence of free air under the diaphragm or pneumonia. I am going to repeat the patient's CT scan due to her recurrent abdominal pain and is unable to tolerate oral intake. I spoke with Dr. Fonseca who will be the admitting physician. The patient was hypotensive which was thought to be secondary to clinical dehydration by blood pressure did improve after receiving IV fluid hydration Departure Diagnosis: Primary Impression: Nausea and vomiting Vomiting type: unspecified Vomiting Intractability: intractable Qualified Codes: R11.2 - Nausea with vomiting, unspecified Additional Impressions: Cholelithiasis Cholelithiasis location: gallbladder Cholecystitis presence: without cholecystitis Biliary obstruction: without biliary obstruction Qualified Codes: K80.20 - Calculus of gallbladder without cholecystitis without obstruction Hypokalemia Condition: Serious DIAMANTE SOTO MD Dec 23, 2018 10:02
[2018-12-23] MEDS ORDERED: SOD CHLORIDE 0.9% 100 ML ONE (12:03)
[2018-12-23] MEDS ORDERED: IOHEXOL 300MG/ML 150 ML BTL ONE (12:03)
[2018-12-23] MEDS ORDERED: POTASSIUM CHLORIDE (SR) 20 MEQ TAB PO STA (12:23)
[2018-12-23] MEDS ORDERED: ONDANSETRON 4 MG INJ IV PRN ×2 (13:00→15:00)
[2018-12-23] MEDS ORDERED: ACETAMINOPHEN 325 MG TAB PO PRN (13:00)
[2018-12-23] MEDS ORDERED: ALBUMIN HUMAN 5% 250 ML IV ONE (13:30)
--- NOTE | 2018-12-23 14:30 | HP ---
FABI OSORIO 12/23/18 1430: Date/Time of Note Date/Time of Note DATE: 12/23/18 TIME: 14:27 Assessment/Plan VTE Prophylaxis SCD applied (from Nsg): Yes (later) Pharmacological prophylaxis: NA/contraindicated Pharm contraindication: thrombocytopenia, surgical contra Lines/Catheters IV Catheter Type (from Nrsg): Mid Line Central line still needed: Yes Assessment/Plan Hospital Course 1. Cholelithiasis vs cholecystitis. Nausea, vomiting, right upper quadrant pain. Status post common bile duct and main pancreatic duct stent placement, now still in appropriate position by dr Josue on 12/13 and 12/16/2018. 2. Dehydration, elevate creatinine and BUN 3 Liver cirrhosis with portal hypertension and moderate diffuse ascites. 4. Hypotension 2/2 to dehydration and chronic hypotension 5. LIZETT 6. Hypokalemia 2/2 nausea and vomiting 7. Microcytic hypochromic anemia 8. hx of UTI, was present on previous admission, UA is pending 9. Diabetes mellitus type 2. 10. Osteoporosis. 11. History of L5 fracture. 12. Depression. 13. Hyperlipidemia. Assessment/Plan -ID consult dr Luong -surgical consult Dr Do, dr Escobar was called but he is unavailable. -SCD bilaterally, pt might need a surgical intervention -pain control -GI consult dr josue -NPO c/w IV antibiotics -monitor creatinine daily -IV fluids Result Diagram: 12/23/18 0858 12/23/18 1023 Results 24hrs Laboratory Tests Test 12/23/18 08:58 12/23/18 10:23 White Blood Count 9.8 # Red Blood Count 4.35 # Hemoglobin 11.4 #L Hematocrit 35.1 #L Mean Corpuscular Volume 80.7 L Mean Corpuscular Hemoglobin 26.2 L Mean Corpuscular Hemoglobin Concent 32.5 Red Cell Distribution Width 19.0 H Platelet Count 331 # Mean Platelet Volume 10.5 H Immature Granulocytes % 0.900 H Neutrophils % 67.4 Lymphocytes % 22.5 Monocytes % 7.5 Eosinophils % 1.1 Basophils % 0.6 Nucleated Red Blood Cells % 0.0 Immature Granulocytes # 0.090 H Neutrophils # 6.6 Lymphocytes # 2.2 Monocytes # 0.7 Eosinophils # 0.1 Basophils # 0.1 Nucleated Red Blood Cells # 0.0 Prothrombin Time 13.5 Prothrombin Time Ratio 1.1 INR International Normalized Ratio 1.02 Activated Partial Thromboplast Time 26.4 Sodium Level 136 Potassium Level 3.0 L Chloride Level 88 L Carbon Dioxide Level 33 H Anion Gap 15 H Blood Urea Nitrogen 24 H Creatinine 1.17 H Est Glomerular Filtrat Rate mL/min 47 L Glucose Level 178 Calcium Level 9.9 Total Bilirubin 0.8 Direct Bilirubin 0.00 Indirect Bilirubin 0.8 Aspartate Amino Transf (AST/SGOT) 42 Alanine Aminotransferase (ALT/SGPT) 16 Alkaline Phosphatase 181 H Troponin I < 0.012 Total Protein 7.4 Albumin 3.8 Globulin 3.60 H Albumin/Globulin Ratio 1.05 Amylase Level 91 Lipase 221 HPI/ROS Admit Date/Time Admit Date/Time Hx of Present Illness This is a 63-year-old female with a past medical history of autoimmune cirrhosis, 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 The patient reported nausea, decreased apetite and multiple episodes of nonbloody nonbilious emesis, she describes it as bitter taste. The patient had been admitted to the hospital December 12 to December 18 with similar symptoms. The patient underwent an ERCP on December 13, 2018 and December 16, 2018, she is postt sphincterotomy and placement of pancreatic stent and post removal of the bile duct stones and placement of biliary stent. Patient was offered cholecystectomy but she refused. The patient was discharged om antibiotics but she indicates that she has been unable to tolerate any oral intake since discharge. She denied fevers, shaking or chills. She denies any hemoptysis, hematemesis or melanotic stools. The patient came to the emergency department for further evaluation. On admission, vital signs were blood pressure 91/58, pulse 74, afebrile, saturating 99%. Labs showed BMP: potassium 3.0, Cr 1.17, BUN 24, bilirubin is normal, ALT and AST normal, alkaline phosphatase 181. White count 9.8, hemoglobin 11.4, platelet count 331. The patient had a CT of the abdomen and pelvis with the contrast that showed cholelithiasis, cirrhotic morphology of the liver with evidence of portal hypertension including small recanalized umbilical vein, upper abdominal varices and moderate diffuse ascites. Status post common bile duct and main pancreatic duct stent placement with stents in appropriate position. Pt will be admitted for further management. PAST MEDICAL HISTORY: 1. Autoimmune cirrhosis. 2. Status post sphincterotomy and placement of pancreatic stent, status post sphincterotomy removal of the bile duct stones and placement of biliary stent . 3. Diabetes type 2. 4. History of hepatic encephalopathy. 5. Cervical disease of the spine. 6. Atherosclerotic aorta. 7. Degenerative joint disease of the C-spine. 8. History of L5 vertebral fracture. 9. History of stroke, recovered fully PAST SURGICAL HISTORY: Appendectomy, carpal tunnel surgery, 2 C-sections, s/p ERCP and few paracentesis. ROS Constitutional: no complaints, improved, chills, diaphoresis, disoriented, fatigue, febrile, nausea, poor po, weight change, other ENT: no complaints Respiratory: no complaints Cardiovascular: no complaints Gastrointestinal: decreased appetite, nausea, vomiting (clear fluids); No no complaints, No blood, No diarrhea, No flatus, No passing stool, No other Musculoskeletal: other (weakness) Skin: no complaints PMH/Family/Social Past Medical History Medical History: gallstones, hepatitis, urinary tract infection Medications Current Medications Ondansetron HCl (Zofran Inj) 4 mg ER BRIDGE PRN IV NAUSEA/VOMITING; Start at 13:00; Stop 12/24/18 at 12:59 Acetaminophen (Tylenol Tab) 650 mg ER BRIDGE PRN PO .MILD PAIN 1-3 OR TEMP; Start 12/23/18 at 13:00; Stop 12/24/18 at 12:59 Albumin Human 250 ml @ 250 mls/hr ONCE ONCE IV Last administered on 12/23/18at 14:02; Admin Dose 250 MLS/HR; Start 12/23/18 at 13:30; Stop 12/23/18 at 14:29 Coded Allergies: No Known Allergy (Unverified , 12/23/18) Past Surgical History Past Surgical Hx: endoscopy, other (2 c section, appendectomy , release carpal tunnel ) Family History Significant Family History: no pertinent family hx Social History Alcohol Use: none Smoking Status: Never smoker Drug Use: none Exam/Review of Systems Vital Signs Vitals Vital Signs Date Temp Pulse Resp B/P (MAP) Pulse Ox O2 O2 Flow FiO2 Time Delivery Rate 12/23/18 55 19 82/54 (63) Room Air 14:21 12/23/18 98 12:30 12/23/18 98.1 08:24 Exam Constitutional: alert, oriented Respiratory: clear to auscultation Cardiovascular: regular rate and rhythm Gastrointestinal: soft, distended, rebound or guarding (RUQ), surgical scars Genitourinary - Female: CVA tenderness; No nl adnexae, No nl external genitalia, No CMT, No uterus, No other Neurological: APPLICATIONS DEVELOPMENT CONSULTANT II-XII intact REI FONSECA MD 12/23/18 1618: Assessment/Plan Assessment/Plan Assessment/Plan SEEN AND EXAMINED WITH MAIN LINE STATION ENGINEER Hypotension ? sepsis due to cholecysytis failed po abx pt was seen by Dr Escobar who requested Surgery air conditioning installer to see her iv abx albumin Telemetry ? ERCP GI consult Result Diagram: 12/23/18 0858 12/23/18 1023 PMH/Family/Social Past Medical History Coded Allergies: No Known Allergy (Unverified , 12/23/18) FABI OSORIO Dec 23, 2018 14:30 REI FONSECA MD Dec 23, 2018 16:18
[2018-12-23] MEDS: DEXTROSE 5%-0.45% NACL 1,000 ML IV SCH (14:36)
[2018-12-23] MEDS: PANTOPRAZOLE 40 MG INJ IV SCH (15:25)
--- NOTE | 2018-12-23 15:47 | CONS ---
DATE OF ADMISSION: 12/23/2018 DATE OF CONSULTATION: 12/23/2018 TYPE OF CONSULTATION: Infectious Disease. REASON FOR CONSULTATION: Antibiotic management. HISTORY OF PRESENT ILLNESS: 1. Eloise Youngblood is a 63-year-old female who comes in with nausea and vomiting as well as m id and right lower quadrant pain. 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 2. History of stroke. 3. Hepatic encephalopathy. 4. Ascites. 5. Diabetes mellitus. 6. Degenerative joint disease. 7. Status post C-sections x2, history of ERCP. Acutely, the patient has had multiple episodes of nausea and vomiting. She is admitted 12/12/2018 fo r choledocholithiasis. She underwent ERCP on 12/13/2018. She had a pancreatic stent that had been d eployed and a percutaneous sphincterotomy was not able to be performed. The patient was discharged, but has been unable to tolerate any oral intake since discharge. She has no fever or shaking chills. The abdominal pain is more prominent in the right upper quadrant, but does not radiate to the back and is 10/10 in intensity. On admission, her white count is 9.8 with 67% polys, H and H 11.4 and 35. 1, platelet count 331,000. BUN and creatinine 24/1.17, glucose of 178. PAST MEDICAL HISTORY: Operations as outlined. FAMILY HISTORY: Noncontributory. SOCIAL HISTORY: She does not smoke, drink or abuse drugs. ALLERGIES: NONE TO PENICILLIN, SULFA OR FOODS. MEDICATIONS: Per chart. REVIEW OF SYSTEMS: Noncontributory. PHYSICAL EXAMINATION: GENERAL: The patient is a well-developed, well-nourished female who is awake, responsive, in no acut e distress. VITAL SIGNS: Stable. She is afebrile. SKIN: Without generalized rash. HEENT: Within normal limits. NECK: Supple. LYMPH NODES: None palpable. CHEST: Decreased breath sounds at the bases. HEART: Without murmur or gallop. ABDOMEN: Soft, nontender, without organosplenomegaly or masses. EXTREMITIES: Without cyanosis, clubbing, or edema. RECTAL AND GENITAL: Deferred. NEUROLOGIC: No focal neurological abnormalities. ANCILLARY LABORATORY DATA: As noted, her BUN and creatinine is 24/1.17, potassium of 3, sodium is 13 6, chloride 88, CO2 of 33, indicative of some alkalosis and a glucose of 178 random. Total protein 7. 4, albumin 3.8, globulin 3.6. The patient presents to the emergency room with abdominal pain, probably related with her choledochol ithiasis and her autoimmune cirrhosis. Differential entertained in the emergency room included abdom inal aortic aneurysm, appendicitis, pancreatitis, perforated peptic ulcer, perforated viscus, and num erous other possibilities. There was no free air under the diaphragm on chest x-ray. The admitting physician is Dr. Fonseca. The patient was hypotensive, thought to be secondary to clinical to dehydra tion and her blood pressure did improve after IV fluid hydration. The patient is currently on metron idazole. A CT scan of the abdomen and pelvis was done and it showed cholelithiasis, cirrhotic morpho logy of the liver with evidence of portal hypertension including small recanalized umbilical vein, up per abdominal varices and moderate diffuse ascites, status post common bile duct and main pancreatic duct stent placement with stents in appropriate position. IMPRESSION AND PLAN: The patient should be seen by GI in terms of evaluating the source of the abdom inal pain. She was seen by Dr. Josue a week ago and she may need another ERCP and an MRCP. For now , will continue her on current therapy. I will dictate my findings to Dr. Fonseca. Dictated By: ERROL CASTANEDA MD, JD/NTS Conf#: [id number] DID#: [id number] CC: REI FONSECA; DIAMANTE SOTO MD;*[facility]*
[2018-12-23] MEDS: PIPER-TAZO 3.375 GM IV (PMX) 100 ML IVPB SCH ×2 (17:21→22:41)
[2018-12-23] MEDS: ALBUMIN HUMAN 25% 100 ML IV SCH (17:25)
[2018-12-23] MEDS ORDERED: metroNIDAZOLE 500 MG/NS (PMX) 100 ML IVPB SCH (18:00)
[2018-12-23 18:50] VITALS: BP 90/55; PULSE 54; RESP 18
[2018-12-23 18:51] VITALS: Ht 157.5 cm; Wt 57.3 kg
[2018-12-23] MEDS: METOCLOPRAMIDE 10 MG INJ IV SCH (18:56)
[2018-12-23 18:59] VITALS: PULSE 54
--- NOTE | 2018-12-23 19:46 | CONS ---
DATE OF ADMISSION: 12/23/2018 DATE OF CONSULTATION: TYPE OF CONSULTATION: Gastroenterology. From Laura Josue MD, to Lore Fonseca MD. HISTORY OF PRESENT ILLNESS: The patient is a 63-year-old female with history of cholecystitis, bile duct stone status post sphincterotomy, placement of biliary stent and pancreatic stent, comes to the hospital complaining of nausea, vomiting and mild abdominal discomfort. No fever, no chills, no o r FIVE PIECE EXPANSION MAKER HAND problem. No circumstantial evidence of food poisoning. PAST MEDICAL HISTORY: Diabetes mellitus, degenerative joint disease, autoimmune hepatitis and cirrho sis, the patient is on CellCept, history of stroke. FAMILY HISTORY: Nothing contributory. SOCIAL HISTORY: She does not smoke, drink. No recreational drugs. ALLERGIES: NONE. REVIEW OF SYSTEMS: Nothing contributory. PHYSICAL EXAMINATION: GENERAL: Alert, awake, not in any distress. VITAL SIGNS: Blood pressure is towards lower side, 84/50. CARDIOVASCULAR: No murmur, gallop or click. LUNGS: Clear. ABDOMEN: Soft, mild tenderness in the right upper quadrant. Bowel sounds are good. No mass felt pe r abdomen. EXTREMITIES: No edema. CENTRAL NERVOUS SYSTEM: Grossly within normal limits. LABORATORY DATA: Shows WBC 9.8, hematocrit 35, platelet count is 331. Alkaline phosphatase is mildl y elevated at 181. LFTs all otherwise within normal limits. Creatinine is 1.17. INR is 1.1. DIAGNOSTIC DATA: CAT scan of the abdomen shows cirrhosis of liver with portal hypertension. Both th e stents are well position and gallstone. IMPRESSION: 1. Nausea, vomiting and mild abdominal discomfort, may be related to gastroparesis, rule out symptom atic gallstone. 2. Status post pancreatic and biliary stent. 3. Autoimmune hepatitis with cirrhosis of liver. 4. Diabetes mellitus. 5. History of cerebrovascular accident. PLAN: Start the patient on Reglan. We will continue with PPI, IV hydration since the blood pressure is low and hold off on diuretics until the renal function has improved. Surgical consult also has neto baird requested. I had a lengthy discussion with the patient and the daughter who was by the side of t he patient in the emergency room. Dictated By: LAURA JOHNSTON/NTS Conf#: [id number] DID#: [id number] CC: LORE FONSECA; ERROL CASTANEDA MD;*[facility]*
[2018-12-23 20:00] VITALS: BP 90/55; RESP 18
[2018-12-23 20:17] VITALS: PULSE 58
[2018-12-23] MEDS: MIDODRINE 5 MG TAB PO SCH ×2 (21:00→22:58)
[2018-12-24] VITALS (14 sets, daily range): BP systolic 81–113; BP diastolic 48–60; PULSE 52–66; RESP 16–18
[2018-12-24] MEDS: ALBUMIN HUMAN 25% 100 ML IV SCH ×2 (00:02→09:05)
[2018-12-24] MEDS: DEXTROSE 5%-0.45% NACL 1,000 ML IV SCH ×3 (02:07→23:26)
[2018-12-24] MEDS: METOCLOPRAMIDE 10 MG INJ IV SCH ×4 (05:22→17:16)
[2018-12-24] MEDS: PIPER-TAZO 3.375 GM IV (PMX) 100 ML IVPB SCH (05:22)
[2018-12-24] MEDS ORDERED: MYCOPHENOLATE 250 MG CAP PO SCH (09:00)
[2018-12-24] MEDS: PANTOPRAZOLE 40 MG INJ IV SCH (09:05)
[2018-12-24] MEDS: ESCITALOPRAM 10 MG TAB PO SCH (09:06)
[2018-12-24] MEDS: MIDODRINE 5 MG TAB PO SCH ×3 (09:06→20:09)
--- NOTE | 2018-12-24 10:30 | CONS ---
Assessment/Plan Assessment/Plan Hospital Course (Demo Recall) ID PROGRESS NOTE CURRENT ABX: DAY # => Zosyn 12/23/18 0858 12/23/18 1023 24H INTERVAL SUMMARY * Awake, alert, responsive, resting in bed, VSS, NAD -- "Much better... no pain right now", denies N/V * Chart reviewed -- s/p recent pancreatic and biliary stenting DIAGNOSTIC IMAGING * 12/23/18 CXR: No acute disease. * 12/23/18 CT ABD-PEL: IMPRESSION: * 1. Cirrhotic morphology of the liver with evidence of portal hypertension including small recanalized umbilical vein, upper abdominal varices and moderate diffuse ascites. * 2. Status post common bile duct and main pancreatic duct stent placement with stents in appropriate position. * 3. Cholelithiasis. MICRO/OTHER * 12/24/18 PHYSICAL EXAMINATION: GENERAL: VSS, NAD, a/A/O HEENT: AT, NC, anicteric, NECK: Supple, CHEST: Equal chest rise bilaterally, without dyspnea on observation HEART: Pulse RRR ABDOMEN: Distended - hepatomegaly : No FC EXTREMITIES: Warm, dry SKIN: No rash, no diaphoresis ID ASSESSMENT 63 yo F admit with: 1. Nausea, vomiting and mild abdominal discomfort, may be related to gastroparesis, rule out symptomatic gallstone. 2. Cholelithiasis w/hx of recent Choledocholithiasis. * status post pancreatic and biliary stent. 3. 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 Perisplenic and para- esophageal varices. 4. Diabetes mellitus. 5. History of cerebrovascular accident. 6. IMMUNOCOMPROMISED HOST ON CELLCEPT 7. Hypotension in setting N/V -- and liver disease == on Midodrine 8. Mild multilevel degenerative disc disease. Mild superior endplate compression deformities of the L4 and L5 are unchanged. 9. Acute renal insufficiency (-)MRSA Nares ABX ALLERGIES: KNDA INVASIVES: PIV CURRENT ABX: DAY # Zosyn ID RECOMMENDATIONS/PLAN: 1. Continue current ABX -- lower dose of Zosyn due to DM kidney w/rising s.Creatinine. . Consultation Date/Type/Reason Admit Date/Time Dec 23, 2018 at 12:43 Initial Consult Date Date/Time of Note DATE: 12/24/18 TIME: 10:29 Exam/Review of Systems Exam Vitals Vital Signs Date Temp Pulse Resp B/P (MAP) Pulse Ox O2 O2 Flow FiO2 Time Delivery Rate 12/24/18 57 10:03 12/24/18 98.4 18 81/48 (59) 98 07:17 12/24/18 Room Air 01:42 Intake and Output 12/23/18 12/23/18 12/24/18 1515:00 23:00 07:00 IntakeIntake Total 300 ml BalanceBalance 300 ml Results Result Diagram: 12/23/18 0858 12/23/18 1023 Results 24hrs Laboratory Tests Test 12/24/18 06:10 Lactic Acid Level 0.9 Medications Medication Current Medications Acetaminophen (Tylenol Tab) 650 mg ER BRIDGE PRN PO .MILD PAIN 1-3 OR TEMP; Start 12/23/18 at 13:00; Stop 12/24/18 at 12:59 Dextrose/Sodium Chloride 1,000 ml @ 100 mls/hr Q10H IV Last administered on 12/23/18at 14:36; Admin Dose 60 MLS/HR; Start 12/23/18 at 14:30 Pantoprazole (Protonix Iv) 40 mg DAILY IV Last administered on 12/24/18 09:05; Admin Dose 40 MG; Start 12/23/18 at 15:00 Escitalopram Oxalate (Lexapro) 10 mg DAILY PO Last administered on 12/24/18at 09:06; Admin Dose 10 MG; Start 12/24/18 at 09:00 Midodrine (Proamatine) 10 mg TID PO Last administered on 12/24/18 09:06; Admin Dose 10 MG; Start 12/23/18 at 21:00 Ondansetron HCl (Zofran Inj) 4 mg Q6 PRN IV NAUSEA; Start 12/23/18 at 15:00 Piperacillin Sod/ Tazobactam Sod 100 ml @ 200 mls/hr Q8 IVPB Last administered on 12/24/18 05:22; Admin Dose 200 MLS/HR; Start 12/23/18 at 16:30 Metoclopramide HCl (Reglan) 5 mg Q6 IV Last administered on 12/24/18 05:22; Admin Dose 5 MG; Start 12/23/18 at 18:00 OBIE GAMEZ NP Dec 24, 2018 10:30
--- NOTE | 2018-12-24 11:14 | PN ---
Date/Time of Note Date/Time of Note DATE: 12/24/18 TIME: 11:08 Assessment/Plan VTE Prophylaxis Risk score (from Ns)>0 risk: 5 SCD applied (from Ns): Yes Pharmacological prophylaxis: NA/contraindicated Pharm contraindication: liver dx Lines/Catheters IV Catheter Type (from Nrsg): Mid Line Central line still needed: Yes Assessment/Plan Hospital Course 1. Nausea, vomiting, right upper quadrant pain. Status post common bile duct and main pancreatic duct stent placement, now still in appropriate position by dr Josue on 12/13 and 12/16/2018. per dr Josue due to possible gastroparesis 2. Dehydration, elevated creatinine and BUN 3 Liver cirrhosis with portal hypertension and moderate diffuse ascites. 4. Hypotension 2/2 to dehydration and chronic hypotension 5. LIZETT 2/2 to dehydration 6. Hypokalemia 2/2 nausea and vomiting 7. Microcytic hypochromic anemia 8. hx of UTI, was present on previous admission, UA is pending 9. Diabetes mellitus type 2. 10. Osteoporosis. 11. History of L5 fracture. 12. Depression. 13. Hyperlipidemia. Assessment/Plan -ID consult dr Luong seen -labs today -hypoglycemic control -UA pending -reglan TID per dr Josue -surgical consult Dr Do, dr Escobar was called but he is unavailable. -Spoke to dr Do, he said pt is not having acute rola. most likely -SCD bilaterally, pt might need a surgical intervention -pain control -GI consult dr Josue, seen -clear liquid diet -c/w IV antibiotics -monitor creatinine daily -c/w IV fluids Result Diagram: 12/23/18 0858 12/23/18 1023 Results 24hrs Laboratory Tests Test 12/24/18 06:10 Lactic Acid Level 0.9 Subjective 24 Hr Interval Summary Gastrointestinal: pain, nausea; No no complaints, No blood, No constipation, No decreased appetite, No diarrh ea, No flatus, No passing stool, No vomiting, No other Exam/Review of Systems Exam Vitals Vital Signs Date Temp Pulse Resp B/P (MAP) Pulse Ox O2 O2 Flow FiO2 Time Delivery Rate 12/24/18 57 10:03 12/24/18 98.4 18 81/48 (59) 98 07:17 12/24/18 Room Air 01:42 Intake and Output 12/23/18 12/23/18 12/24/18 1515:00 23:00 07:00 IntakeIntake Total 300 ml BalanceBalance 300 ml Constitutional: alert, oriented Respiratory: clear to auscultation Cardiovascular: regular rate and rhythm Gastrointestinal: soft, rebound or guarding (RUQ) Results Results 24hrs Laboratory Tests Test 12/24/18 06:10 Lactic Acid Level 0.9 Medications Medication Current Medications Acetaminophen (Tylenol Tab) 650 mg ER BRIDGE PRN PO .MILD PAIN 1-3 OR TEMP; Start 12/23/18 at 13:00; Stop 12/24/18 at 12:59 Dextrose/Sodium Chloride 1,000 ml @ 100 mls/hr Q10H IV Last administered on 12/23/18at 14:36; Admin Dose 60 MLS/HR; Start 12/23/18 at 14:30 Pantoprazole (Protonix Iv) 40 mg DAILY IV Last administered on 12/24/18at 09:05; Admin Dose 40 MG; Start 12/23/18 at 15:00 Escitalopram Oxalate (Lexapro) 10 mg DAILY PO Last administered on 12/24/18at 09:06; Admin Dose 10 MG; Start 12/24/18 at 09:00 Midodrine (Proamatine) 10 mg TID PO Last administered on 12/24/18at 09:06; Admin Dose 10 MG; Start 12/23/18 at 21:00 Ondansetron HCl (Zofran Inj) 4 mg Q6 PRN IV NAUSEA; Start 12/23/18 at 15:00 Piperacillin Sod/ Tazobactam Sod 100 ml @ 200 mls/hr Q8 IVPB Last administered on 12/24/18at 05:22; Admin Dose 200 MLS/HR; Start 12/23/18 at 16:30 Metoclopramide HCl (Reglan) 5 mg Q6 IV Last administered on 12/24/18 05:22; Admin Dose 5 MG; Start 12/23/18 at 18:00 FABI OSORIO Dec 24, 2018 11:14
[2018-12-24] MEDS: INSULIN ASPART [NOVOLOG] 3 ML PEN SC SCH ×3 (11:54→20:55)
[2018-12-24] MEDS ORDERED: DEXTROSE 50% 50 ML SYRINGE IV PRN ×2 (12:00)
[2018-12-24] MEDS ORDERED: GLUCOSE GEL 15 GRAM TUBE BUCCAL PRN (12:00)
[2018-12-24] MEDS ORDERED: GLUCOSE GEL 15 GRAM TUBE PO PRN ×2 (12:00)
[2018-12-24] MEDS ORDERED: GLUCAGON 1 MG INJ IM PRN (12:00)
[2018-12-24] MEDS: POTASSIUM CHLORIDE 100 ML IVPB SCH ×2 (12:58→17:10)
--- NOTE | 2018-12-24 14:05 | CONS ---
Assessment/Plan Assessment/Plan Assessment/Plan (Daily) Cholelithiasis, no evidence of acute cholecystitis Patient has no pain or tenderness to right upper quadrant. Further her CT does not show any evidence of cholecystitis. If acute cholecystitis is suspected, would recommend percutaneous cholecystostomy as patient is not a surgical candidate due to her cirrhosis Consultation Date/Type/Reason Admit Date/Time Dec 23, 2018 at 12:43 Date/Time of Note DATE: 12/24/18 TIME: 14:00 Hx of Present Illness The patient is a 63-year-old female with cirrhosis secondary to autoimmune hepatitis. She was recently hospitalized for choledocholithiasis and underwent ERCP. she is currently followed by pipe cleaner currently on CellCept, history of stroke, ascites, hepatic encephalopathy, diabetes, degenerative joint disease of the cervical spine She presented to the ER a few days ago complaining of right upper quadrant pain. She also had multiple episodes of nonbilious emesis. Patient was unable to take p.o. after discharge. She denies fevers or chills. According the chart, she had severe right upper quadrant pain. However, at this time she denies any significant abdominal pain. Past Medical History Medical History: gallstones, hepatitis, urinary tract infection Home Meds Active Scripts Ondansetron Hcl* (Zofran*) 4 Mg Tab, 4 MG PO Q6H PRN for NAUSEA AND OR VOMITING for 30 Days, TAB Prov:REI FONSECA MD 12/18/18 Lactobacillus Acidophilus* (Lactinex*) 1 Tab Chew, 1 TAB PO TID for 10 Days, TAB Prov:FABI OSORIO 12/18/18 Ciprofloxacin Hcl* (Ciprofloxacin Hcl*) 500 Mg Tablet, 500 MG PO BID, #10 TAB Prov:FABI OSORIO 12/18/18 Metronidazole* (Flagyl*) 500 Mg Tablet, 500 MG PO BID for 10 Days, TAB Prov:FABI OSORIO 12/18/18 Reported Medications Escitalopram Oxalate* (Escitalopram Oxalate*) 10 Mg Tablet, 10 MG PO DAILY, #30 TAB 12/12/18 Atorvastatin* (Atorvastatin*) 40 Mg Tablet, 40 MG PO QHS, #30 TAB 12/12/18 Omeprazole* (Omeprazole*) 40 Mg Capsule.dr, 40 MG PO DAILY, #30 CAP 12/12/18 Midodrine* (Midodrine*) 10 Mg Tablet, 10 MG PO TID, TAB 12/12/18 Alendronate Sodium* (Fosamax*) 70 Mg Tablet, 70 MG PO Q SAT, #4 TAB 12/12/18 Mycophenolate Mofetil* (Mycophenolate Mofetil*) 500 Mg Tablet, 500 MG PO DAILY, TAB 12/12/18 Lactulose (Constulose) 10 Gm/15 Ml Solution, 15 ML PO NEEDED 12/12/18 Insulin Glargine,Hum.rec.anlog (Basaglar Kwikpen U-100) 100 Unit/1 Ml Insuln.pen, 20 UNIT SC QHS, EA CHECK IF BS WAS HIGH SHE CAN USE 30 UNITS 12/12/18 Discontinued Reported Medications Lisinopril* (Lisinopril*) 5 Mg Tablet, 5 MG PO DAILY, #30 TAB 12/12/18 Spironolactone* (Aldactone*) 50 Mg Tablet, 50 MG PO DAILY, TAB 12/12/18 Metolazone* (Metolazone*) 2.5 Mg Tablet, 2.5 MG PO DAILY, TAB TAKE Q ,,WED. 12/12/18 Furosemide* (Furosemide*) 40 Mg Tablet, 40 MG PO BID, TAB 12/12/18 Medications Current Medications Dextrose/Sodium Chloride 1,000 ml @ 100 mls/hr Q10H IV Last administered on 12/24/18at 11:29; Admin Dose 100 MLS/HR; Start 12/23/18 at 14:30 Pantoprazole (Protonix Iv) 40 mg DAILY IV Last administered on 12/24/18at 09:05; Admin Dose 40 MG; Start 12/23/18 at 15:00 Escitalopram Oxalate (Lexapro) 10 mg DAILY PO Last administered on 12/24/18at 09:06; Admin Dose 10 MG; Start 12/24/18 at 09:00 Midodrine (Proamatine) 10 mg TID PO Last administered on 12/24/18at 12:48; Admin Dose 10 MG; Start 12/23/18 at 21:00 Ondansetron HCl (Zofran Inj) 4 mg Q6 PRN IV NAUSEA; Start 12/23/18 at 15:00 Metoclopramide HCl (Reglan) 5 mg Q6 IV Last administered on 12/24/18at 11:24; Admin Dose 5 MG; Start 12/23/18 at 18:00 Potassium Chloride 100 ml @ 50 mls/hr Q2H IVPB Last administered on 12/24/18at 12:58; Admin Dose 50 MLS/HR; Start 12/24/18 at 11:30; Stop 12/24/18 at 15:29 Insulin Aspart (Novolog Insulin Pen) NOVOLOG *MODERATE* ALGORITHM WITH MEALS BEDTIME SC ; Start 12/24/18 at 12:30 Miscellaneous Information 1 ea NOTE XX ; Start 12/24/18 at 12:00 Glucose (Glutose) 15 gm Q15M PRN PO DECREASED GLUCOSE; Start 12/24/18 at 12:00 Glucose (Glutose) 22.5 gm Q15M PRN PO DECREASED GLUCOSE; Start 12/24/18 at 1 2:00 Dextrose (D50w Syringe) 25 ml Q15M PRN IV DECREASED GLUCOSE; Start 12/24/18 at 12:00 Dextrose (D50w Syringe) 50 ml Q15M PRN IV DECREASED GLUCOSE; Start 12/24/18 at 12:00 Glucagon (Glucagen) 1 mg Q15M PRN IM DECREASED GLUCOSE; Start 12/24/18 at 12:00 Glucose (Glutose) 15 gm Q15M PRN BUCCAL DECREASED GLUCOSE; Start 12/24/18 at 12:00 Piperacillin Sod/ Tazobactam Sod 50 ml @ 100 mls/hr Q8 IVPB ; Start 12/24/18 at 14:00 Allergies: Coded Allergies: No Known Allergy (Unverified , 12/23/18) Past Surgical History Past Surgical Hx: endoscopy, other (2 c section, appendectomy , release carpal tunnel ) Social History Alcohol Use: none Smoking Status: Never smoker Drug Use: none Exam/Review of Systems Exam Vitals Vital Signs Date Temp Pulse Resp B/P (MAP) Pulse Ox O2 O2 Flow FiO2 Time Delivery Rate 12/24/18 54 12:30 12/24/18 99.1 17 113/58 96 11:59 (76) 12/24/18 Room Air 01:42 Intake and Output 12/23/18 12/23/18 12/24/18 1515:00 23:00 07:00 IntakeIntake Total 300 ml BalanceBalance 300 ml Constitutional: alert, oriented, other (Slightly cachectic) Psych: no complaints Head: normocephalic ENMT: nl external ears & nose Neck: supple, non-tender Respiratory: clear to auscultation, normal air movement Cardiovascular: regular rate and rhythm Gastrointestinal: soft, non-tender Neurological: READING ASSISTANT II-XII intact Skin: nl turgor Lymph: nl lymph nodes Results Result Diagram: 12/24/18 0608 12/24/18 0608 Results 24hrs Laboratory Tests Test 12/24/18 06:08 12/24/18 06:10 12/24/18 11:53 White Blood Count 5.0 # Red Blood Count 3.62 L Hemoglobin 9.4 L Hematocrit 29.4 L Mean Corpuscular Volume 81.2 L Mean Corpuscular Hemoglobin 26.0 L Mean Corpuscular Hemoglobin Concent 32.0 Red Cell Distribution Width 19.4 H Platelet Count 194 # Mean Platelet Volume 10.0 Immature Granulocytes % 0.600 H Neutrophils % 69.5 Lymphocytes % 19.8 Monocytes % 7.1 Eosinophils % 2.0 Basophils % 1.0 Nucleated Red Blood Cells % 0.0 Immature Granulocytes # 0.030 Neutrophils # 3.4 Lymphocytes # 1.0 Monocytes # 0.4 Eosinophils # 0.1 Basophils # 0.1 Nucleated Red Blood Cells # 0.0 Sodium Level 138 Potassium Level 3.3 L Chloride Level 97 Carbon Dioxide Level 32 H Anion Gap 9 # Blood Urea Nitrogen 16 Creatinine 0.92 Est Glomerular Filtrat Rate mL/min > 60 Glucose Level 96 # Calcium Level 9.1 Lactic Acid Level 0.9 Bedside Glucose 118 Imaging Imaging Patient: RUBEN COOMBS : 1955 Age: 63 Sex: F MR #: [id number] [facility] #: [id number] DOS: 12/23/18 0911 Ordering MD: DIAMANTE SOTO MD Location: E/R Room/Bed: PROCEDURE: CT Abdomen and Pelvis with contrast. CLINICAL INDICATION: Abdominal pain. TECHNIQUE: CT scan of the abdomen and pelvis with contrast was performed on a multi-detector high-resolution CT scanner. The patient was scanned following the uncomplicated intravenous administration of 100 cc of Omnipaque 300 IV contrast. Coronal and sagittal reformatted images were obtained from the axial source images. DICOM images are available. CTDI equals 7.52 mGy, and DLP equals 424.58 mGy-cm. One or more of the following dose reduction techniques were used: - Automated exposure control. - Adjustment of the mA and/or kV according to patient size. - Use of iterative reconstruction technique. COMPARISON: CT 12/12/2018 FINDINGS: Lower thorax: Lung bases are unremarkable. Liver: Cirrhotic morphology of the liver. No suspicious liver lesion. Patent portal vein. Small recanalized umbilical vein. Biliary: Cholelithiasis. No evidence of wall thickening. There is no intrahepatic biliary ductal dilation. CBD stent is in place. Pancreas: No suspicious pancreatic mass. Pancreatic duct stent is also in place. Spleen: Normal in size and measures 11.4 cm. Adrenal Glands: Normal. Genitourinary: Symmetric perfusion of kidneys with no hydronephrosis. Bladder is moderately distended, otherwise unremarkable. Gastrointestinal: Stomach is decompressed. Small and large bowel with normal caliber. No evidence of bowel obstruction. Lymph nodes: No adenopathy. Vascular: Normal-caliber of the moderately calcified abdominal aorta. Perisplenic and para-esophageal varices. Peritoneum/mesentery: There is moderate amount of diffuse ascites. Reproductive organs: Unremarkable. Musculoskeletal: Mild multilevel degenerative disc disease. Mild superior endplate compression deformities of the L4 and L5 are unchanged. Abdominal wall: Unremarkable. IMPRESSION: 1. Cirrhotic morphology of the liver with evidence of portal hypertension including small recanalized umbilical vein, upper abdominal varices and moderate diffuse ascites. 2. Status post common bile duct and main pancreatic duct stent placement with stents in appropriate position. 3. Cholelithiasis. RPTAT: PP Physician Eugenio Date Time Electronically viewed and signed by Physician Eugenio on 12/23/2018 12:50 Medications Medication Current Medications Dextrose/Sodium Chloride 1,000 ml @ 100 mls/hr Q10H IV Last administered on 12/24/18at 11:29; Admin Dose 100 MLS/HR; Start 12/23/18 at 14:30 Pantoprazole (Protonix Iv) 40 mg DAILY IV Last administered on 12/24/18at 09:05; Admin Dose 40 MG; Start 12/23/18 at 15:00 Escitalopram Oxalate (Lexapro) 10 mg DAILY PO Last administered on 12/24/18at 09:06; Admin Dose 10 MG; Start 12/24/18 at 09:00 Midodrine (Proamatine) 10 mg TID PO Last administered on 12/24/18at 12:48; Admin Dose 10 MG; Start 12/23/18 at 21:00 Ondansetron HCl (Zofran Inj) 4 mg Q6 PRN IV NAUSEA; Start 12/23/18 at 15:00 Metoclopramide HCl (Reglan) 5 mg Q6 IV Last administered on 12/24/18at 11:24; Admin Dose 5 MG; Start 12/23/18 at 18:00 Potassium Chloride 100 ml @ 50 mls/hr Q2H IVPB Last administered on 12/24/18at 12:58; Admin Dose 50 MLS/HR; Start 12/24/18 at 11:30; Stop 12/24/18 at 15:29 Insulin Aspart (Novolog Insulin Pen) NOVOLOG *MODERATE* ALGORITHM WITH MEALS BEDTIME SC ; Start 12/24/18 at 12:30 Miscellaneous Information 1 ea NOTE XX ; Start 12/24/18 at 12:00 Glucose (Glutose) 15 gm Q15M PRN PO DECREASED GLUCOSE; Start 12/24/18 at 12:00 Glucose (Glutose) 22.5 gm Q15M PRN PO DECREASED GLUCOSE; Start 12/24/18 at 12:00 Dextrose (D50w Syringe) 25 ml Q15M PRN IV DECREASED GLUCOSE; Start 12/24/18 at 12:00 Dextrose (D50w Syringe) 50 ml Q15M PRN IV DECREASED GLUCOSE; Start 12/24/18 at 12:00 Glucagon (Glucagen) 1 mg Q15M PRN IM DECREASED GLUCOSE; Start 12/24/18 at 12:00 Glucose (Glutose) 15 gm Q15M PRN BUCCAL DECREASED GLUCOSE; Start 12/24/18 at 12:00 Piperacillin Sod/ Tazobactam Sod 50 ml @ 100 mls/hr Q8 IVPB ; Start 12/24/18 at 14:00 TRUDY MALIK MD Dec 24, 2018 14:05
--- NOTE | 2018-12-24 14:23 | CONS ---
Assessment/Plan Assessment/Plan Assessment/Plan (Daily) 1. Nausea, vomiting and mild abdominal discomfort, may be related to gastroparesis, rule out symptomatic gallstone. 2. Status post pancreatic and biliary stent. 3. Autoimmune hepatitis with cirrhosis of liver. 4. Diabetes mellitus. 5. History of cerebrovascular accident. Plan Continue Reglan Advance diet Consultation Date/Type/Reason Admit Date/Time Dec 23, 2018 at 12:43 Initial Consult Date Date/Time of Note DATE: 12/24/18 TIME: 14:22 24 HR Interval Summary Constitutional: no complaints, improved Exam/Review of Systems Exam Vitals Vital Signs Date Temp Pulse Resp B/P (MAP) Pulse Ox O2 O2 Flow FiO2 Time Delivery Rate 12/24/18 54 12:30 12/24/18 99.1 17 113/58 96 11:59 (76) 12/24/18 Room Air 01:42 Intake and Output 12/23/18 12/23/18 12/24/18 1515:00 23:00 07:00 IntakeIntake Total 300 ml BalanceBalance 300 ml Constitutional: alert, oriented, well developed Psych: no complaints, nl mood/affect Head: normocephalic, atraumatic Eyes: nl conjunctiva, EOMI, nl lids, nl sclera, PERRL ENMT: nl external ears & nose, nl lips & teeth, nl nasal mucosa & septum Neck: supple, non-tender Respiratory: clear to auscultation, normal air movement Cardiovascular: regular rate and rhythm, nl pulses Gastrointestinal: soft, nl liver, spleen, non-tender Musculoskeletal: nl extremities to inspection, nl gait and stance Extremities: normal pulses Neurological: [employer] II-XII intact, nl mental status, nl speech, nl strength Skin: nl turgor; No rash or lesions Lymph: nl lymph nodes Results Result Diagram: 12/24/18 0608 12/24/18 0608 Results 24hrs Laboratory Tests Test 12/24/18 06:08 12/24/18 06:10 12/24/18 11:53 White Blood Count 5.0 # Red Blood Count 3.62 L Hemoglobin 9.4 L Hematocrit 29.4 L Mean Corpuscular Volume 81.2 L Mean Corpuscular Hemoglobin 26.0 L Mean Corpuscular Hemoglobin Concent 32.0 Red Cell Distribution Width 19.4 H Platelet Count 194 # Mean Platelet Volume 10.0 Immature Granulocytes % 0.600 H Neutrophils % 69.5 Lymphocytes % 19.8 Monocytes % 7.1 Eosinophils % 2.0 Basophils % 1.0 Nucleated Red Blood Cells % 0.0 Immature Granulocytes # 0.030 Neutrophils # 3.4 Lymphocytes # 1.0 Monocytes # 0.4 Eosinophils # 0.1 Basophils # 0.1 Nucleated Red Blood Cells # 0.0 Sodium Level 138 Potassium Level 3.3 L Chloride Level 97 Carbon Dioxide Level 32 H Anion Gap 9 # Blood Urea Nitrogen 16 Creatinine 0.92 Est Glomerular Filtrat Rate mL/min > 60 Glucose Level 96 # Calcium Level 9.1 Lactic Acid Level 0.9 Bedside Glucose 118 Medications Medication Current Medications Dextrose/Sodium Chloride 1,000 ml @ 100 mls/hr Q10H IV Last administered on 12/24/18 11:29; Admin Dose 100 MLS/HR; Start 12/23/18 at 14:30 Pantoprazole (Protonix Iv) 40 mg DAILY IV Last administered on 12/24/18 09:05; Admin Dose 40 MG; Start 12/23/18 at 15:00 Escitalopram Oxalate (Lexapro) 10 mg DAILY PO Last administered on 12/24/18 09:06; Admin Dose 10 MG; Start 12/24/18 at 09:00 Midodrine (Proamatine) 10 mg TID PO Last administered on 12/24/18 12:48; Admin Dose 10 MG; Start 12/23/18 at 21:00 Ondansetron HCl (Zofran Inj) 4 mg Q6 PRN IV NAUSEA; Start 12/23/18 at 15:00 Metoclopramide HCl (Reglan) 5 mg Q6 IV Last administered on 12/24/18 11:24; Admin Dose 5 MG; Start 12/23/18 at 18:00 Potassium Chloride 100 ml @ 50 mls/hr Q2H IVPB Last administered on 12/24/18 12:58; Admin Dose 50 MLS/HR; Start 12/24/18 at 11:30; Stop 12/24/18 at 15:29 Insulin Aspart (Novolog Insulin Pen) NOVOLOG *MODERATE* ALGORITHM WITH MEALS BEDTIME SC ; Start 12/24/18 at 12:30 Miscellaneous Information 1 ea NOTE XX ; Start 12/24/18 at 12:00 Glucose (Glutose) 15 gm Q15M PRN PO DECREASED GLUCOSE; Start 12/24/18 at 12:00 Glucose (Glutose) 22.5 gm Q15M PRN PO DECREASED GLUCOSE; Start 12/24/18 at 12:00 Dextrose (D50w Syringe) 25 ml Q15M PRN IV DECREASED GLUCOSE; Start 12/24/18 at 12:00 Dextrose (D50w Syringe) 50 ml Q15M PRN IV DECREASED GLUCOSE; Start 12/24/18 at 12:00 Glucagon (Glucagen) 1 mg Q15M PRN IM DECREASED GLUCOSE; Start 12/24/18 at 12:00 Glucose (Glutose) 15 gm Q15M PRN BUCCAL DECREASED GLUCOSE; Start 12/24/18 at 12:00 Piperacillin Sod/ Tazobactam Sod 50 ml @ 100 mls/hr Q8 IVPB ; Start 12/24/18 at 14:00 LAURA RAMIREZ MD Dec 24, 2018 14:23
[2018-12-24] MEDS: PIPER-TAZO 2.25 GM (PMX) 50 ML IVPB SCH ×2 (14:56→21:15)
[2018-12-25] VITALS (10 sets, daily range): BP systolic 83–116; BP diastolic 52–62; PULSE 54–71; RESP 16–22
[2018-12-25] MEDS: METOCLOPRAMIDE 10 MG INJ IV SCH ×5 (00:57→23:26)
[2018-12-25] MEDS: PIPER-TAZO 2.25 GM (PMX) 50 ML IVPB SCH (05:20)
[2018-12-25] MEDS: INSULIN ASPART [NOVOLOG] 3 ML PEN SC SCH ×4 (07:43→20:33)
[2018-12-25] MEDS: DEXTROSE 5%-0.45% NACL 1,000 ML IV SCH ×2 (08:07→17:20)
[2018-12-25] MEDS: ESCITALOPRAM 10 MG TAB PO SCH (08:14)
[2018-12-25] MEDS: PANTOPRAZOLE 40 MG INJ IV SCH (08:14)
[2018-12-25] MEDS: MIDODRINE 5 MG TAB PO SCH ×3 (08:14→20:19)
--- NOTE | 2018-12-25 12:35 | CONS ---
Assessment/Plan Assessment/Plan Assessment/Plan (Daily) Assessment/Plan Assessment/Plan (Daily) 1. Nausea, vomiting and mild abdominal discomfort, may be related to gastroparesis, rule out symptomatic gallstone. 2. Status post pancreatic and biliary stent. 3. Autoimmune hepatitis with cirrhosis of liver. 4. Diabetes mellitus. 5. History of cerebrovascular accident. Plan Continue Reglan Advance diet Optimize blood sugar Consultation Date/Type/Reason Admit Date/Time Dec 23, 2018 at 12:43 Initial Consult Date Date/Time of Note DATE: 12/25/18 TIME: 12:34 24 HR Interval Summary Free Text/Dictation No abdominal pain No nausea no vomiting Tolerating diet Constitutional: no complaints, improved Exam/Review of Systems Exam Vitals Vital Signs Date Temp Pulse Resp B/P (MAP) Pulse Ox O2 O2 Flow FiO2 Time Delivery Rate 12/25/18 97.6 56 22 116/62 96 Room Air 11:24 (80) Intake and Output 12/24/18 12/24/18 12/25/18 1515:00 23:00 07:00 IntakeIntake Total 1010 ml 1450 ml OutputOutput Total 500 ml BalanceBalance 510 ml 1450 ml Constitutional: alert, oriented, well developed Psych: no complaints, nl mood/affect Head: normocephalic, atraumatic Eyes: nl conjunctiva, EOMI, nl lids, nl sclera, PERRL ENMT: nl external ears & nose, nl lips & teeth, nl nasal mucosa & septum Neck: supple, non-tender Respiratory: clear to auscultation, normal air movement Cardiovascular: regular rate and rhythm, nl pulses Gastrointestinal: soft, nl liver, spleen, non-tender Musculoskeletal: nl extremities to inspection, nl gait and stance Extremities: normal pulses Neurological: CAT AND [employer]G BATHER II-XII intact, nl mental status, nl speech, nl strength Skin: nl turgor; No rash or lesions Lymph: nl lymph nodes Results Result Diagram: 12/25/18 0611 12/25/18 0611 Results 24hrs Laboratory Tests Test 12/24/18 17:15 12/24/18 20:06 12/25/18 06:11 12/25/18 07:39 Bedside Glucose 270 H 220 259 H White Blood Count 5.2 Red Blood Count 3.86 L Hemoglobin 9.9 L Hematocrit 31.6 L Mean Corpuscular 81.9 L Volume Mean Corpuscular 25.6 L Hemoglobin Mean Corpuscular 31.3 L Hemoglobin Concent Red Cell 19.1 H Distribution Width Platelet Count 208 Mean Platelet Volume 9.6 Immature 0.400 Granulocytes % Neutrophils % 58.6 Lymphocytes % 28.8 Monocytes % 9.5 Eosinophils % 1.9 Basophils % 0.8 Nucleated Red Blood 0.0 Cells % Immature 0.020 Granulocytes # Neutrophils # 3.0 Lymphocytes # 1.5 Monocytes # 0.5 Eosinophils # 0.1 Basophils # 0.0 Nucleated Red Blood 0.0 Cells # Sodium Level 137 Potassium Level 3.5 Chloride Level 96 L Carbon Dioxide Level 29 Anion Gap 12 Blood Urea Nitrogen 11 Creatinine 0.92 Est Glomerular > 60 Filtrat Rate mL/min Glucose Level 275 #H Calcium Level 8.9 Test 12/25/18 12:05 Bedside Glucose 212 Medications Medication Current Medications Dextrose/Sodium Chloride 1,000 ml @ 100 mls/hr Q10H IV Last administered on 12/24/18 23:26; Admin Dose 100 MLS/HR; Start 12/23/18 at 14:30 Pantoprazole (Protonix Iv) 40 mg DAILY IV Last administered on 12/25/18 08:14; Admin Dose 40 MG; Start 12/23/18 at 15:00 Escitalopram Oxalate (Lexapro) 10 mg DAILY PO Last administered on 12/25/18 08:14; Admin Dose 10 MG; Start 12/24/18 at 09:00 Midodrine (Proamatine) 10 mg TID PO Last administered on 12/25/18 08:14; Admin Dose 10 MG; Start 12/23/18 at 21:00 Ondansetron HCl (Zofran Inj) 4 mg Q6 PRN IV NAUSEA Last administered on 12/24/18 18:30; Admin Dose 4 MG; Start 12/23/18 at 15:00 Metoclopramide HCl (Reglan) 5 mg Q6 IV Last administered on 12/25/18 05:19; Admin Dose 5 MG; Start 12/23/18 at 18:00 Insulin Aspart (Novolog Insulin Pen) NOVOLOG *MODERATE* ALGORITHM WITH MEALS BEDTIME SC Last administered on 12/25/18 12:10; Admin Dose 4 UNIT; Start 12/24/18 at 12:30 Miscellaneous Information 1 ea NOTE XX ; Start 12/24/18 at 12:00 Glucose (Glutose) 15 gm Q15M PRN PO DECREASED GLUCOSE; Start 12/24/18 at 12:00 Glucose (Glutose) 22.5 gm Q15M PRN PO DECREASED GLUCOSE; Start 12/24/18 at 12:00 Dextrose (D50w Syringe) 25 ml Q15M PRN IV DECREASED GLUCOSE; Start 12/24/18 at 12:00 Dextrose (D50w Syringe) 50 ml Q15M PRN IV DECREASED GLUCOSE; Start 12/24/18 at 12:00 Glucagon (Glucagen) 1 mg Q15M PRN IM DECREASED GLUCOSE; Start 12/24/18 at 12:00 Glucose (Glutose) 15 gm Q15M PRN BUCCAL DECREASED GLUCOSE; Start 12/24/18 at 12:00 Piperacillin Sod/ Tazobactam Sod 50 ml @ 100 mls/hr Q8 IVPB Last administered on 12/25/18at 05:20; Admin Dose 100 MLS/HR; Start 12/24/18 at 14:00 LAURA RAMIREZ MD Dec 25, 2018 12:35
--- NOTE | 2018-12-25 12:58 | CONS ---
Assessment/Plan Assessment/Plan Hospital Course (Demo Recall) ID PROGRESS NOTE CURRENT ABX: DAY # => Zosyn #2.5 12/25/18 0611 12/25/18 0611 24H INTERVAL SUMMARY * Awake, alert, responsive, resting in bed, VSS, NAD * Still has intermittent nausea although improved, started on clears and passing gas * -- s/p recent pancreatic and biliary stenting = r/o symptomatic gallstone * SBP still in 90s, on PO miodrine DIAGNOSTIC IMAGING * 12/23/18 CXR: No acute disease. * 12/23/18 CT ABD-PEL: IMPRESSION: * 1. Cirrhotic morphology of the liver with evidence of portal hypertension including small recanalized umbilical vein, upper abdominal varices and moderate diffuse ascites. * 2. Status post common bile duct and main pancreatic duct stent placement with stents in appropriate position. * 3. Cholelithiasis. MICRO/OTHER * 12/24/18 PHYSICAL EXAMINATION: GENERAL: VSS, NAD, a/A/O HEENT: AT, NC, anicteric, NECK: Supple, CHEST: Equal chest rise bilaterally, without dyspnea on observation HEART: Pulse RRR ABDOMEN: Distended - hepatomegaly : No FC EXTREMITIES: Warm, dry SKIN: No rash, no diaphoresis ID ASSESSMENT 63 yo F admit with: 1. Nausea, vomiting and mild abdominal discomfort, may be related to gastroparesis, rule out symptomatic gallstone. 2. Cholelithiasis w/hx of recent Choledocholithiasis. * status post pancreatic and biliary stent. 3. 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 Perisplenic and para- esophageal varices. 4. Diabetes mellitus. 5. History of cerebrovascular accident. 6. IMMUNOCOMPROMISED HOST ON CELLCEPT 7. Hypotension in setting N/V -- and liver disease == on Midodrine 8. Mild multilevel degenerative disc disease. Mild superior endplate compression deformities of the L4 and L5 are unchanged. 9. Acute renal insufficiency (-)MRSA Nares ABX ALLERGIES: KNDA INVASIVES: PIV CURRENT ABX: DAY # Zosyn #2.5 ID RECOMMENDATIONS/PLAN: 1. Change Zosyn to Augmentin 875mg po Q12 -- anticipate short course ABX total 5 days 3. May DC on PO ABX to OP f/u when cleared by GI/Primary . Consultation Date/Type/Reason Admit Date/Time Dec 23, 2018 at 12:43 Initial Consult Date Date/Time of Note DATE: 12/25/18 TIME: 12:50 Exam/Review of Systems Exam Vitals Vital Signs Date Temp Pulse Resp B/P (MAP) Pulse Ox O2 O2 Flow FiO2 Time Delivery Rate 12/25/18 55 12:00 12/25/18 97.6 22 116/62 96 Room Air 11:24 (80) Intake and Output 12/24/18 12/24/18 12/25/18 1515:00 23:00 07:00 IntakeIntake Total 1010 ml 1450 ml OutputOutput Total 500 ml BalanceBalance 510 ml 1450 ml Results Result Diagram: 12/25/18 0611 12/25/18 0611 Results 24hrs Laboratory Tests Test 12/24/18 17:15 12/24/18 20:06 12/25/18 06:11 12/25/18 07:39 Bedside Glucose 270 H 220 259 H White Blood Count 5.2 Red Blood Count 3.86 L Hemoglobin 9.9 L Hematocrit 31.6 L Mean Corpuscular 81.9 L Volume Mean Corpuscular 25.6 L Hemoglobin Mean Corpuscular 31.3 L Hemoglobin Concent Red Cell 19.1 H Distribution Width Platelet Count 208 Mean Platelet Volume 9.6 Immature 0.400 Granulocytes % Neutrophils % 58.6 Lymphocytes % 28.8 Monocytes % 9.5 Eosinophils % 1.9 Basophils % 0.8 Nucleated Red Blood 0.0 Cells % Immature 0.020 Granulocytes # Neutrophils # 3.0 Lymphocytes # 1.5 Monocytes # 0.5 Eosinophils # 0.1 Basophils # 0.0 Nucleated Red Blood 0.0 Cells # Sodium Level 137 Potassium Level 3.5 Chloride Level 96 L Carbon Dioxide Level 29 Anion Gap 12 Blood Urea Nitrogen 11 Creatinine 0.92 Est Glomerular > 60 Filtrat Rate mL/min Glucose Level 275 #H Calcium Level 8.9 Test 12/25/18 12:05 Bedside Glucose 212 Medications Medication Current Medications Dextrose/Sodium Chloride 1,000 ml @ 100 mls/hr Q10H IV Last administered on 12/24/18at 23:26; Admin Dose 100 MLS/HR; Start 12/23/18 at 14:30 Pantoprazole (Protonix Iv) 40 mg DAILY IV Last administered on 12/25/18at 08:14; Admin Dose 40 MG; Start 12/23/18 at 15:00 Escitalopram Oxalate (Lexapro) 10 mg DAILY PO Last administered on 12/25/18 08:14; Admin Dose 10 MG; Start 12/24/18 at 09:00 Midodrine (Proamatine) 10 mg TID PO Last administered on 12/25/18at 12:39; Admin Dose 10 MG; Start 12/23/18 at 21:00 Ondansetron HCl (Zofran Inj) 4 mg Q6 PRN IV NAUSEA Last administered on 12/24/18 18:30; Admin Dose 4 MG; Start 12/23/18 at 15:00 Metoclopramide HCl (Reglan) 5 mg Q6 IV Last administered on 12/25/18 12:38; Admin Dose 5 MG; Start 12/23/18 at 18:00 Insulin Aspart (Novolog Insulin Pen) NOVOLOG *MODERATE* ALGORITHM WITH MEALS BEDTIME SC Last administered on 12/25/18 12:10; Admin Dose 4 UNIT; Start 12/24/18 at 12:30 Miscellaneous Information 1 ea NOTE XX ; Start 12/24/18 at 12:00 Glucose (Glutose) 15 gm Q15M PRN PO DECREASED GLUCOSE; Start 12/24/18 at 12:00 Glucose (Glutose) 22.5 gm Q15M PRN PO DECREASED GLUCOSE; Start 12/24/18 at 12:00 Dextrose (D50w Syringe) 25 ml Q15M PRN IV DECREASED GLUCOSE; Start 12/24/18 at 12:00 Dextrose (D50w Syringe) 50 ml Q15M PRN IV DECREASED GLUCOSE; Start 12/24/18 at 12:00 Glucagon (Glucagen) 1 mg Q15M PRN IM DECREASED GLUCOSE; Start 12/24/18 at 12:00 Glucose (Glutose) 15 gm Q15M PRN BUCCAL DECREASED GLUCOSE; Start 12/24/18 at 12:00 Piperacillin Sod/ Tazobactam Sod 50 ml @ 100 mls/hr Q8 IVPB Last administered on 12/25/18at 05:20; Admin Dose 100 MLS/HR; Start 12/24/18 at 14:00 OBIE GAMEZ NP Dec 25, 2018 12:58
--- NOTE | 2018-12-25 17:04 | PN ---
Date/Time of Note Date/Time of Note DATE: 12/25/18 TIME: 17:02 Assessment/Plan VTE Prophylaxis Risk score (from Ns)>0 risk: 4 [place] [facility] [place] contraindicated: other Pharmacological prophylaxis: other Pharm contraindication: other Lines/Catheters IV Catheter Type ([facility]): Mid Line Assessment/Plan Hospital Course 1.. Status post common bile duct and main pancreatic duct stent placement,pain less 2. s/p dehydration 3 Liver cirrhosis with portal hypertension and moderate diffuse ascites. 4. Hypotension 2/2 to dehydration and chronic hypotension 5. LIZETT 2/2 to dehydration 6. Hypokalemia 2/2 nausea and vomiting 7. Microcytic hypochromic anemia 8. hx of UTI, was present on previous admission, UA is pending 9. Diabetes mellitus type 2. 10. Osteoporosis. 11. History of L5 fracture. 12. Depression. 13. Hyperlipidemia. plan antibiotic Result Diagram: 12/25/18 0611 12/25/18 0611 Results 24hrs Laboratory Tests Test 12/24/18 17:15 12/24/18 20:06 12/25/18 06:11 12/25/18 07:39 Bedside Glucose 270 H 220 259 H White Blood Count 5.2 Red Blood Count 3.86 L Hemoglobin 9.9 L Hematocrit 31.6 L Mean Corpuscular 81.9 L Volume Mean Corpuscular 25.6 L Hemoglobin Mean Corpuscular 31.3 L Hemoglobin Concent Red Cell 19.1 H Distribution Width Platelet Count 208 Mean Platelet Volume 9.6 Immature 0.400 Granulocytes % Neutrophils % 58.6 Lymphocytes % 28.8 Monocytes % 9.5 Eosinophils % 1.9 Basophils % 0.8 Nucleated Red Blood 0.0 Cells % Immature 0.020 Granulocytes # Neutrophils # 3.0 Lymphocytes # 1.5 Monocytes # 0.5 Eosinophils # 0.1 Basophils # 0.0 Nucleated Red Blood 0.0 Cells # Sodium Level 137 Potassium Level 3.5 Chloride Level 96 L Carbon Dioxide Level 29 Anion Gap 12 Blood Urea Nitrogen 11 Creatinine 0.92 Est Glomerular > 60 Filtrat Rate mL/min Glucose Level 275 #H Calcium Level 8.9 Test 12/25/18 12:05 Bedside Glucose 212 Subjective 24 Hr Interval Summary ENT: no complaints Respiratory: no complaints Gastrointestinal: pain (better) Exam/Review of Systems Exam Vitals Vital Signs Date Temp Pulse Resp B/P (MAP) Pulse Ox O2 O2 Flow FiO2 Time Delivery Rate 12/25/18 55 16:00 12/25/18 98.0 20 114/58 96 Room Air 16:00 (76) Intake and Output 12/24/18 12/24/18 12/25/18 1414:59 22:59 06:59 IntakeIntake Total 1010 ml 1450 ml OutputOutput Total 500 ml BalanceBalance 510 ml 1450 ml Respiratory: clear to auscultation Cardiovascular: regular rate and rhythm Gastrointestinal: soft, bowel sounds (+) Extremities: normal pulses; No edema Neurological: [employer] II-XII intact Results Results 24hrs Laboratory Tests Test 12/24/18 17:15 12/24/18 20:06 12/25/18 06:11 12/25/18 07:39 Bedside Glucose 270 H 220 259 H White Blood Count 5.2 Red Blood Count 3.86 L Hemoglobin 9.9 L Hematocrit 31.6 L Mean Corpuscular 81.9 L Volume Mean Corpuscular 25.6 L Hemoglobin Mean Corpuscular 31.3 L Hemoglobin Concent Red Cell 19.1 H Distribution Width Platelet Count 208 Mean Platelet Volume 9.6 Immature 0.400 Granulocytes % Neutrophils % 58.6 Lymphocytes % 28.8 Monocytes % 9.5 Eosinophils % 1.9 Basophils % 0.8 Nucleated Red Blood 0.0 Cells % Immature 0.020 Granulocytes # Neutrophils # 3.0 Lymphocytes # 1.5 Monocytes # 0.5 Eosinophils # 0.1 Basophils # 0.0 Nucleated Red Blood 0.0 Cells # Sodium Level 137 Potassium Level 3.5 Chloride Level 96 L Carbon Dioxide Level 29 Anion Gap 12 Blood Urea Nitrogen 11 Creatinine 0.92 Est Glomerular > 60 Filtrat Rate mL/min Glucose Level 275 #H Calcium Level 8.9 Test 12/25/18 12:05 Bedside Glucose 212 Medications Medication Current Medications Dextrose/Sodium Chloride 1,000 ml @ 100 mls/hr Q10H IV Last administered on 12/24/18at 23:26; Admin Dose 100 MLS/HR; Start 12/23/18 at 14:30 Escitalopram Oxalate (Lexapro) 10 mg DAILY PO Last administered on 12/25/18at 08:14; Admin Dose 10 MG; Start 12/24/18 at 09:00 Midodrine (Proamatine) 10 mg TID PO Last administered on 12/25/18at 12:39; Admin Dose 10 MG; Start 12/23/18 at 21:00 Ondansetron HCl (Zofran Inj) 4 mg Q6 PRN IV NAUSEA Last administered on 12/24/18at 18:30; Admin Dose 4 MG; Start 12/23/18 at 15:00 Metoclopramide HCl (Reglan) 5 mg Q6 IV Last administered on 12/25/18at 12:38; Admin Dose 5 MG; Start 12/23/18 at 18:00 Insulin Aspart (Novolog Insulin Pen) NOVOLOG *MODERATE* ALGORITHM WITH MEALS BEDTIME SC Last administered on 12/25/18at 12:10; Admin Dose 4 UNIT; Start 12/24/18 at 12:30 Miscellaneous Information 1 ea NOTE XX ; Start 12/24/18 at 12:00 Glucose (Glutose) 15 gm Q15M PRN PO DECREASED GLUCOSE; Start 12/24/18 at 12:00 Glucose (Glutose) 22.5 gm Q15M PRN PO DECREASED GLUCOSE; Start 12/24/18 at 12:00 Dextrose (D50w Syringe) 25 ml Q15M PRN IV DECREASED GLUCOSE; Start 12/24/18 at 12:00 Dextrose (D50w Syringe) 50 ml Q15M PRN IV DECREASED GLUCOSE; Start 12/24/18 at 12:00 Glucagon (Glucagen) 1 mg Q15M PRN IM DECREASED GLUCOSE; Start 12/24/18 at 12:00 Glucose (Glutose) 15 gm Q15M PRN BUCCAL DECREASED GLUCOSE; Start 12/24/18 at 12:00 Amoxicillin/ Clavulanate Potassium (Augmentin) 875 mg BID PO ; Start 12/25/18 at 21:00 Pantoprazole (Protonix Tab) 40 mg DAILY@06 PO ; Start 12/26/18 at 06:00 LYNETTE SAINZ MD Dec 25, 2018 17:04
[2018-12-25] MEDS: AMOXICILLIN/CLAV 875 MG TAB PO SCH (20:18)
[2018-12-26] VITALS (10 sets, daily range): BP systolic 82–133; BP diastolic 50–73; PULSE 57–68; RESP 14–19
[2018-12-26] MEDS: DEXTROSE 5%-0.45% NACL 1,000 ML IV SCH ×2 (04:12→09:17)
[2018-12-26] MEDS: PANTOPRAZOLE (EC) 40 MG TAB PO SCH (05:33)
[2018-12-26] MEDS: METOCLOPRAMIDE 10 MG INJ IV SCH ×3 (05:33→17:38)
[2018-12-26] MEDS: INSULIN ASPART [NOVOLOG] 3 ML PEN SC SCH ×4 (08:28→20:02)
--- NOTE | 2018-12-26 09:00 | CONS ---
Assessment/Plan Assessment/Plan Hospital Course (Demo Recall) 63 yo female Interval hx: Blood sugars in 200s. Pt states her nausea improved. No abd joni n or discomfort. Small bm, brown. Tolerating regular soft diet. 1. Nausea, vomiting and mild abdominal discomfort, may be related to gastroparesis -improved 2. Status post pancreatic and biliary stent. 3. Autoimmune hepatitis with cirrhosis of liver. 4. Diabetes mellitus. 5. History of cerebrovascular accident. 6. Anemia -11.4->9.4->9.9 7. Cholelithiasis with no cholecystitis CT abd shows biliary and pancreatic duct in place, no CBD obstruction or dilatation Plan Anemia work up Continue Reglan Optimize blood sugar Pt examined and plan of care discussed with Dr. Josue Consultation Date/Type/Reason Admit Date/Time Dec 23, 2018 at 12:43 Initial Consult Date Date/Time of Note DATE: 12/26/18 TIME: 08:55 Exam/Review of Systems Exam Vitals Vital Signs Date Temp Pulse Resp B/P (MAP) Pulse Ox O2 O2 Flow FiO2 Time Delivery Rate 12/26/18 Room Air 08:05 12/26/18 98.3 61 19 109/58 97 07:46 (75) Intake and Output 12/25/18 12/25/18 12/26/18 1515:00 23:00 07:00 IntakeIntake Total 840 ml 500 ml BalanceBalance 840 ml 500 ml Constitutional: alert, oriented Psych: no complaints Head: normocephalic Eyes: nl sclera, PERRL Respiratory: clear to auscultation Cardiovascular: regular rate and rhythm Gastrointestinal: soft, non-tender Musculoskeletal: nl extremities to inspection Neurological: nl mental status Results Result Diagram: 12/25/18 0611 12/25/18 0611 Results 24hrs Laboratory Tests Test 12/25/18 12:05 12/25/18 17:18 12/25/18 20:11 12/26/18 08:24 Bedside Glucose 212 227 H 227 H 257 H Medications Medication Current Medications Dextrose/Sodium Chloride 1,000 ml @ 100 mls/hr Q10H IV Last administered on 12/26/18at 04:12; Admin Dose 100 MLS/HR; Start 12/23/18 at 14:30 Escitalopram Oxalate (Lexapro) 10 mg DAILY PO Last administered on 12/25/18at 08:14; Admin Dose 10 MG; Start 12/24/18 at 09:00 Midodrine (Proamatine) 10 mg TID PO Last administered on 12/25/18 20:19; Admin Dose 10 MG; Start 12/23/18 at 21:00 Ondansetron HCl (Zofran Inj) 4 mg Q6 PRN IV NAUSEA Last administered on 12/24/18 18:30; Admin Dose 4 MG; Start 12/23/18 at 15:00 Metoclopramide HCl (Reglan) 5 mg Q6 IV Last administered on 12/26/18 05:33; Admin Dose 5 MG; Start 12/23/18 at 18:00 Insulin Aspart (Novolog Insulin Pen) NOVOLOG *MODERATE* ALGORITHM WITH MEALS BEDTIME SC Last administered on 12/26/18 08:28; Admin Dose 6 UNIT; Start 12/24/18 at 12:30 Miscellaneous Information 1 ea NOTE XX ; Start 12/24/18 at 12:00 Glucose (Glutose) 15 gm Q15M PRN PO DECREASED GLUCOSE; Start 12/24/18 at 12:00 Glucose (Glutose) 22.5 gm Q15M PRN PO DECREASED GLUCOSE; Start 12/24/18 at 12:00 Dextrose (D50w Syringe) 25 ml Q15M PRN IV DECREASED GLUCOSE; Start 12/24/18 at 12:00 Dextrose (D50w Syringe) 50 ml Q15M PRN IV DECREASED GLUCOSE; Start 12/24/18 at 12:00 Glucagon (Glucagen) 1 mg Q15M PRN IM DECREASED GLUCOSE; Start 12/24/18 at 12:00 Glucose (Glutose) 15 gm Q15M PRN BUCCAL DECREASED GLUCOSE; Start 12/24/18 at 12:00 Amoxicillin/ Clavulanate Potassium (Augmentin) 875 mg BID PO Last administered on 12/25/18 20:18; Admin Dose 875 MG; Start 12/25/18 at 21:00 Pantoprazole (Protonix Tab) 40 mg DAILY@06 PO Last administered on 12/26/18 05:33; Admin Dose 40 MG; Start 12/26/18 at 06:00 LINDEN ANG Dec 26, 2018 09:00
[2018-12-26] MEDS: MIDODRINE 5 MG TAB PO SCH ×3 (09:17→22:59)
[2018-12-26] MEDS: AMOXICILLIN/CLAV 875 MG TAB PO SCH ×2 (09:17→20:00)
[2018-12-26] MEDS: ESCITALOPRAM 10 MG TAB PO SCH (09:17)
--- NOTE | 2018-12-26 11:24 | PN ---
Date/Time of Note Date/Time of Note DATE: 12/26/18 TIME: 11:21 Assessment/Plan VTE Prophylaxis Risk score (from Ns)>0 risk: 3 SCD applied (from Ns): Yes Pharmacological prophylaxis: NA/contraindicated Pharm contraindication: low risk/ambulating Lines/Catheters IV Catheter Type (from [facility]): Mid Line Assessment/Plan Hospital Course .1 Abdominal pain Status post common bile duct and main pancreatic duct stent placement,pain less, CT of the abdomen and pelvis polyp positive for chol elithiasis however no evidence of any choledocholithiasis 2. s/p dehydration 3 Liver cirrhosis with portal hypertension and moderate diffuse ascites. 4. Hypotension 2/2 to dehydration and chronic hypotension 5. LIZETT 2/2 to dehydration resolved 6. Hypokalemia 2/2 nausea and vomiting 7. Microcytic hypochromic anemia 8. hx of UTI, was present on previous admission, UA is pending 9. Diabetes mellitus type 2.uncontrolled 10. Osteoporosis. 11. History of L5 fracture. 12. Depression. 13. Hyperlipidemia. plan -Surgery no surgery indicated since there was no evidence of acute cholecystitis -DC DEXTROSE IV fluids -Continue with diet -Resume Lantus -Ambulate -Transferred to [facility] - With midodrine -Cw with amoxicillin ccw PPI Result Diagram: 12/25/18 0611 12/25/18 0611 Results 24hrs Laboratory Tests Test 12/25/18 12:05 12/25/18 17:18 12/25/18 20:11 12/26/18 08:24 Bedside Glucose 212 227 H 227 H 257 H Test 12/26/18 09:08 Absolute Reticulocyte 0.116 H Count Percent Reticulocyte 3.1 H Count Iron Level 35 Total Iron Binding 280 Capacity Percent Iron 13 L Saturation Ferritin 32.8 Vitamin B12 Level 739 Folate 14.3 Subjective 24 Hr Interval Summary Free Text/Dictation Doing better. SBP is better Exam/Review of Systems Exam Vitals Vital Signs Date Temp Pulse Resp B/P (MAP) Pulse Ox O2 O2 Flow FiO2 Time Delivery Rate 12/26/18 98.4 61 19 90/52 (65) 96 Room Air 11:04 Intake and Output 12/25/18 12/25/18 12/26/18 1515:00 23:00 07:00 IntakeIntake Total 840 ml 500 ml BalanceBalance 840 ml 500 ml Exam Respiratory: clear to auscultation Cardiovascular: regular rate and rhythm Gastrointestinal: soft, bowel sounds (+) Extremities: normal pulses; No edema Neurological: [employer] TE[employer]ER II-XII intact Results Results 24hrs Laboratory Tests Test 12/25/18 12:05 12/25/18 17:18 12/25/18 20:11 12/26/18 08:24 Bedside Glucose 212 227 H 227 H 257 H Test 12/26/18 09:08 Absolute Reticulocyte 0.116 H Count Percent Reticulocyte 3.1 H Count Iron Level 35 Total Iron Binding 280 Capacity Percent Iron 13 L Saturation Ferritin 32.8 Vitamin B12 Level 739 Folate 14.3 Medications Medication Current Medications Escitalopram Oxalate (Lexapro) 10 mg DAILY PO Last administered on 12/26/18at 09:17; Admin Dose 10 MG; Start 12/24/18 at 09:00 Midodrine (Proamatine) 10 mg TID PO Last administered on 12/26/18at 09:17; Admin Dose 10 MG; Start 12/23/18 at 21:00 Ondansetron HCl (Zofran Inj) 4 mg Q6 PRN IV NAUSEA Last administered on 12/24/18at 18:30; Admin Dose 4 MG; Start 12/23/18 at 15:00 Metoclopramide HCl (Reglan) 5 mg Q6 IV Last administered on 12/26/18at 05:33; Admin Dose 5 MG; Start 12/23/18 at 18:00 Insulin Aspart (Novolog Insulin Pen) NOVOLOG *MODERATE* ALGORITHM WITH MEALS BEDTIME SC Last administered on 12/26/18at 08:28; Admin Dose 6 UNIT; Start 12/24/18 at 12:30 Miscellaneous Information 1 ea NOTE XX ; Start 12/24/18 at 12:00 Glucose (Glutose) 15 gm Q15M PRN PO DECREASED GLUCOSE; Start 12/24/18 at 12:00 Glucose (Glutose) 22.5 gm Q15M PRN PO DECREASED GLUCOSE; Start 12/24/18 at 12:00 Dextrose (D50w Syringe) 25 ml Q15M PRN IV DECREASED GLUCOSE; Start 12/24/18 at 12:00 Dextrose (D50w Syringe) 50 ml Q15M PRN IV DECREASED GLUCOSE; Start 12/24/18 at 12:00 Glucagon (Glucagen) 1 mg Q15M PRN IM DECREASED GLUCOSE; Start 12/24/18 at 12:00 Glucose (Glutose) 15 gm Q15M PRN BUCCAL DECREASED GLUCOSE; Start 12/24/18 at 12:00 Amoxicillin/ Clavulanate Potassium (Augmentin) 875 mg BID PO Last administered on 12/26/18at 09:17; Admin Dose 875 MG; Start 12/25/18 at 21:00 Pantoprazole (Protonix Tab) 40 mg DAILY@06 PO Last administered on 12/26/18at 05:33; Admin Dose 40 MG; Start 12/26/18 at 06:00 Insulin Glargine (Lantus) 10 units DAILY@2000 SC ; Start 12/26/18 at 20:00; Status UNV REI FONSECA MD Dec 26, 2018 11:23
--- NOTE | 2018-12-26 14:09 | CONS ---
Assessment/Plan Assessment/Plan Hospital Course (Demo Recall) No acute events overnight patient is alert feels good denies pain no nausea vomiting diarrhea. Antimicrobials Augmentin Physical examination: Well-developed elderly woman who is awake in no distress. Head atraumatic normocephalic sclera nonicteric neck is supple chest rise symmetrical breath sounds clear. Heart: S1-S2. Abdomen soft bowel sounds present. Assessment: 1. Symptomatic cholelithiasis 2. Diabetes 3. 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 Immunocompromised host, on CellCept 5. History of CVA 6. History of common bile duct and main pancreatic duct stents placement==> in appropriate position per CT Plan: Patient remains stable continue present care, follow GI recommendations Consultation Date/Type/Reason Admit Date/Time Dec 25, 2018 at 10:04 Initial Consult Date Type of Consult id Date/Time of Note DATE: 12/26/18 TIME: 14:09 Exam/Review of Systems Exam Vitals Vital Signs Date Temp Pulse Resp B/P (MAP) Pulse Ox O2 O2 Flow FiO2 Time Delivery Rate 12/26/18 60 13:41 12/26/18 97.8 14 133/73 98 13:35 (93) 12/26/18 Room Air 11:04 Intake and Output 12/25/18 12/25/18 12/26/18 1515:00 23:00 07:00 IntakeIntake Total 840 ml 500 ml BalanceBalance 840 ml 500 ml Results Result Diagram: 12/25/18 0611 12/25/18 0611 Results 24hrs Laboratory Tests Test 12/25/18 17:18 12/25/18 20:11 12/26/18 08:24 12/26/18 09:08 Bedside Glucose 227 H 227 H 257 H Absolute Reticulocyte 0.116 H Count Percent Reticulocyte 3.1 H Count Iron Level 35 Total Iron Binding 280 Capacity Percent Iron 13 L Saturation Ferritin 32.8 Vitamin B12 Level 739 Folate 14.3 Test 12/26/18 12:06 Bedside Glucose 268 H Medications Medication Current Medications Escitalopram Oxalate (Lexapro) 10 mg DAILY PO Last administered on 12/26/18at 09:17; Admin Dose 10 MG; Start 12/24/18 at 09:00 Midodrine (Proamatine) 10 mg TID PO Last administered on 12/26/18at 12:48; Admin Dose 10 MG; Start 12/23/18 at 21:00 Ondansetron HCl (Zofran Inj) 4 mg Q6 PRN IV NAUSEA Last administered on 12/24/18at 18:30; Admin Dose 4 MG; Start 12/23/18 at 15:00 Metoclopramide HCl (Reglan) 5 mg Q6 IV Last administered on 12/26/18at 12:48; Admin Dose 5 MG; Start 12/23/18 at 18:00 Insulin Aspart (Novolog Insulin Pen) NOVOLOG *MODERATE* ALGORITHM WITH MEALS BEDTIME SC Last administered on 12/26/18at 12:10; Admin Dose 8 UNIT; Start 12/24/18 at 12:30 Miscellaneous Information 1 ea NOTE XX ; Start 12/24/18 at 12:00 Glucose (Glutose) 15 gm Q15M PRN PO DECREASED GLUCOSE; Start 12/24/18 at 12:00 Glucose (Glutose) 22.5 gm Q15M PRN PO DECREASED GLUCOSE; Start 12/24/18 at 12:00 Dextrose (D50w Syringe) 25 ml Q15M PRN IV DECREASED GLUCOSE; Start 12/24/18 at 12:00 Dextrose (D50w Syringe) 50 ml Q15M PRN IV DECREASED GLUCOSE; Start 12/24/18 at 12:00 Glucagon (Glucagen) 1 mg Q15M PRN IM DECREASED GLUCOSE; Start 12/24/18 at 12:00 Glucose (Glutose) 15 gm Q15M PRN BUCCAL DECREASED GLUCOSE; Start 12/24/18 at 12:00 Amoxicillin/ Clavulanate Potassium (Augmentin) 875 mg BID PO Last administered on 12/26/18at 09:17; Admin Dose 875 MG; Start 12/25/18 at 21:00 Pantoprazole (Protonix Tab) 40 mg DAILY@06 PO Last administered on 12/26/18at 05:33; Admin Dose 40 MG; Start 12/26/18 at 06:00 Insulin Glargine (Lantus) 10 units DAILY@2000 SC ; Start 12/26/18 at 20:00 RYANNE DA SILVA NP Dec 26, 2018 14:09
[2018-12-26] MEDS ORDERED: INSULIN GLARGINE [LANTus] (100 UNITS/ML) SYG SC SCH (20:00)
[2018-12-27] MEDS: METOCLOPRAMIDE 10 MG INJ IV SCH ×3 (00:07→12:46)
[2018-12-27 01:16] VITALS: BP 91/52; PULSE 59; RESP 18
[2018-12-27] MEDS: PANTOPRAZOLE (EC) 40 MG TAB PO SCH (06:27)
[2018-12-27 07:57] VITALS: BP 95/58; PULSE 57; RESP 15
[2018-12-27] MEDS: INSULIN ASPART [NOVOLOG] 3 ML PEN SC SCH ×2 (08:02→12:54)
[2018-12-27] MEDS: AMOXICILLIN/CLAV 875 MG TAB PO SCH (08:56)
[2018-12-27] MEDS: ESCITALOPRAM 10 MG TAB PO SCH (08:56)
[2018-12-27] MEDS: MIDODRINE 5 MG TAB PO SCH ×2 (08:59→12:51)
--- NOTE | 2018-12-27 09:22 | CONS ---
Assessment/Plan Assessment/Plan Hospital Course (Demo Recall) 63 yo female Interval hx: Blood sugars in 200s. Pt states her nausea resolved. No abd joni n or discomfort. Small bm, brown. No evidence of GI bleeding. Tolerating regular soft diet. Reticulocyte 3.1 1. Nausea, vomiting and mild abdominal discomfort, may be related to gastroparesis -resolved 2. Status post pancreatic and biliary stent. 3. Autoimmune hepatitis with cirrhosis of liver. 4. Diabetes mellitus. 5. History of cerebrovascular accident. 6. Anemia -11.4->9.4->9.9 -Reticulocyte 3.1, Iron borderline low at 35, %sat low at 13, TIBC, b12, folate and ferritin wnl. 7. Cholelithiasis with no cholecystitis CT abd shows biliary and pancreatic duct in place, no CBD obstruction or dilatation Plan Continue Reglan Optimize blood sugar CEA, CA 19-9 Pt examined and plan of care discussed with Dr. Josue Consultation Date/Type/Reason Admit Date/Time Dec 25, 2018 at 10:04 Initial Consult Date Date/Time of Note DATE: 12/27/18 TIME: 09:16 Exam/Review of Systems Exam Vitals Vital Signs Date Temp Pulse Resp B/P (MAP) Pulse Ox O2 O2 Flow FiO2 Time Delivery Rate 12/27/18 98.3 57 15 95/58 (70) 97 07:57 12/26/18 Room Air 11:04 Intake and Output 12/26/18 12/26/18 12/27/18 1515:00 23:00 07:00 IntakeIntake Total 1000 ml 560 ml BalanceBalance 1000 ml 560 ml Constitutional: alert, oriented Head: normocephalic Eyes: nl sclera, PERRL ENMT: mucosa pink and moist Respiratory: clear to auscultation Cardiovascular: regular rate and rhythm Gastrointestinal: soft, non-tender Musculoskeletal: nl gait and stance Neurological: nl mental status Results Result Diagram: 12/25/18 0611 12/27/18 0523 Results 24hrs Laboratory Tests Test 12/26/18 12:06 12/26/18 17:17 12/26/18 19:58 12/27/18 05:23 Bedside Glucose 268 H 233 H 254 H Sodium Level 138 Potassium Level 3.7 Chloride Level 94 L Carbon Dioxide Level 32 H Anion Gap 12 Blood Urea Nitrogen 9 Creatinine 0.80 Est Glomerular Filtrat > 60 Rate mL/min Glucose Level 231 H Calcium Level 9.4 Total Bilirubin 0.6 Direct Bilirubin 0.00 Indirect Bilirubin 0.6 Aspartate Amino 28 Transf (AST/SGOT) Alanine 15 Aminotransferase (ALT/SG PT) Alkaline Phosphatase 127 H Total Protein 7.5 Albumin 3.9 Globulin 3.60 H Albumin/Globulin Ratio 1.08 Test 12/27/18 07:56 Bedside Glucose 203 Medications Medication Current Medications Escitalopram Oxalate (Lexapro) 10 mg DAILY PO Last administered on 12/27/18at 08:56; Admin Dose 10 MG; Start 12/24/18 at 09:00 Midodrine (Proamatine) 10 mg TID PO Last administered on 12/27/18at 08:59; Admin Dose 10 MG; Start 12/23/18 at 21:00 Ondansetron HCl (Zofran Inj) 4 mg Q6 PRN IV NAUSEA Last administered on 12/24/18at 18:30; Admin Dose 4 MG; Start 12/23/18 at 15:00 Metoclopramide HCl (Reglan) 5 mg Q6 IV Last administered on 12/27/18at 06:27; Admin Dose 5 MG; Start 12/23/18 at 18:00 Insulin Aspart (Novolog Insulin Pen) NOVOLOG *MODERATE* ALGORITHM WITH MEALS BEDTIME SC Last administered on 12/27/18at 08:02; Admin Dose 4 UNIT; Start 12/24/18 at 12:30 Miscellaneous Information 1 ea NOTE XX ; Start 12/24/18 at 12:00 Glucose (Glutose) 15 gm Q15M PRN PO DECREASED GLUCOSE; Start 12/24/18 at 12:00 Glucose (Glutose) 22.5 gm Q15M PRN PO DECREASED GLUCOSE; Start 12/24/18 at 12:00 Dextrose (D50w Syringe) 25 ml Q15M PRN IV DECREASED GLUCOSE; Start 12/24/18 at 12:00 Dextrose (D50w Syringe) 50 ml Q15M PRN IV DECREASED GLUCOSE; Start 12/24/18 at 12:00 Glucagon (Glucagen) 1 mg Q15M PRN IM DECREASED GLUCOSE; Start 12/24/18 at 12:00 Glucose (Glutose) 15 gm Q15M PRN BUCCAL DECREASED GLUCOSE; Start 12/24/18 at 12:00 Amoxicillin/ Clavulanate Potassium (Augmentin) 875 mg BID PO Last administered on 12/27/18at 08:56; Admin Dose 875 MG; Start 12/25/18 at 21:00 Pantoprazole (Protonix Tab) 40 mg DAILY@06 PO Last administered on 12/27/18at 06:27; Admin Dose 40 MG; Start 12/26/18 at 06:00 Insulin Glargine (Lantus) 10 units DAILY@2000 SC Last administered on 12/26/18at 20:02; Admin Dose 10 UNITS; Start 12/26/18 at 20:00 LINDEN ANG Dec 27, 2018 09:22
--- NOTE | 2018-12-27 12:05 | CONS ---
Assessment/Plan Assessment/Plan Hospital Course (Demo Recall) No acute events overnight, no fevers Antimicrobials: Augmentin Physical examination: Well-developed elderly woman who is awake in no distress. Head atraumatic normocephalic sclera nonicteric neck is supple chest rise symmetrical breath sounds clear. Heart: S1-S2. Abdomen soft bowel sounds present. Assessment: 1. Symptomatic cholelithiasis 2. Diabetes 3. 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 Immunocompromised host, on CellCept 5. History of CVA 6. History of common bile duct and main pancreatic duct stents placement==> in appropriate position per CT Plan: Continue abx for couple more days Consultation Date/Type/Reason Admit Date/Time Dec 25, 2018 at 10:04 Initial Consult Date Type of Consult id Date/Time of Note DATE: 12/27/18 TIME: 12:03 Exam/Review of Systems Exam Vitals Vital Signs Date Temp Pulse Resp B/P (MAP) Pulse Ox O2 O2 Flow FiO2 Time Delivery Rate 12/27/18 98.3 57 15 95/58 (70) 97 07:57 12/26/18 Room Air 11:04 Intake and Output 12/26/18 12/26/18 12/27/18 1515:00 23:00 07:00 IntakeIntake Total 1000 ml 560 ml BalanceBalance 1000 ml 560 ml Results Result Diagram: 12/25/18 0611 12/27/18 0523 Results 24hrs Laboratory Tests Test 12/26/18 12:06 12/26/18 17:17 12/26/18 19:58 12/27/18 05:23 Bedside Glucose 268 H 233 H 254 H Sodium Level 138 Potassium Level 3.7 Chloride Level 94 L Carbon Dioxide Level 32 H Anion Gap 12 Blood Urea Nitrogen 9 Creatinine 0.80 Est Glomerular Filtrat > 60 Rate mL/min Glucose Level 231 H Calcium Level 9.4 Total Bilirubin 0.6 Direct Bilirubin 0.00 Indirect Bilirubin 0.6 Aspartate Amino 28 Transf (AST/SGOT) Alanine 15 Aminotransferase (ALT/SG PT) Alkaline Phosphatase 127 H Total Protein 7.5 Albumin 3.9 Globulin 3.60 H Albumin/Globulin Ratio 1.08 Test 12/27/18 07:56 Bedside Glucose 203 Medications Medication Current Medications Escitalopram Oxalate (Lexapro) 10 mg DAILY PO Last administered on 12/27/18at 08:56; Admin Dose 10 MG; Start 12/24/18 at 09:00 Midodrine (Proamatine) 10 mg TID PO Last administered on 12/27/18at 08:59; Admin Dose 10 MG; Start 12/23/18 at 21:00 Ondansetron HCl (Zofran Inj) 4 mg Q6 PRN IV NAUSEA Last administered on 12/24/18at 18:30; Admin Dose 4 MG; Start 12/23/18 at 15:00 Metoclopramide HCl (Reglan) 5 mg Q6 IV Last administered on 12/27/18at 06:27; Admin Dose 5 MG; Start 12/23/18 at 18:00 Insulin Aspart (Novolog Insulin Pen) NOVOLOG *MODERATE* ALGORITHM WITH MEALS BEDTIME SC Last administered on 12/27/18at 08:02; Admin Dose 4 UNIT; Start 12/24/18 at 12:30 Miscellaneous Information 1 ea NOTE XX ; Start 12/24/18 at 12:00 Glucose (Glutose) 15 gm Q15M PRN PO DECREASED GLUCOSE; Start 12/24/18 at 12:00 Glucose (Glutose) 22.5 gm Q15M PRN PO DECREASED GLUCOSE; Start 12/24/18 at 12:00 Dextrose (D50w Syringe) 25 ml Q15M PRN IV DECREASED GLUCOSE; Start 12/24/18 at 12:00 Dextrose (D50w Syringe) 50 ml Q15M PRN IV DECREASED GLUCOSE; Start 12/24/18 at 12:00 Glucagon (Glucagen) 1 mg Q15M PRN IM DECREASED GLUCOSE; Start 12/24/18 at 12:00 Glucose (Glutose) 15 gm Q15M PRN BUCCAL DECREASED GLUCOSE; Start 12/24/18 at 12:00 Amoxicillin/ Clavulanate Potassium (Augmentin) 875 mg BID PO Last administered on 12/27/18at 08:56; Admin Dose 875 MG; Start 12/25/18 at 21:00 Pantoprazole (Protonix Tab) 40 mg DAILY@06 PO Last administered on 12/27/18at 06:27; Admin Dose 40 MG; Start 12/26/18 at 06:00 Insulin Glargine (Lantus) 10 units DAILY@2000 SC Last administered on 12/26/18at 20:02; Admin Dose 10 UNITS; Start 12/26/18 at 20:00 RYANNE DA SILVA NP Dec 27, 2018 12:05
--- NOTE | 2018-12-27 12:11 | PDOCDIS ---
Discharge Instructions DIAGNOSIS Discharge Diagnosis nausea/vommting CONDITION [id number] Patient Condition: [id number] Fair HOME CARE INSTRUCTIONS: [id number] Diet Instructions: [id number] Low Fat /Cholesterol ACTIVITY: [id number] Activity Restrictions: [id number] Rest between Activity Avoid heavy lifting FOLLOW UP/APPOINTMENTS Follow-up Plan f/u PCP in 1 week f/u Dr Andrzej noel 1-2 weeks f/u Dr RAMIREZ in 1-2 weeks REI FONSECA MD Dec 27, 2018 12:11
[2018-12-27] MEDS ORDERED: AMOX1TAB10 PO (13:34)
--- NOTE | 2018-12-27 21:01 | DS ---
DATE OF ADMISSION: 12/25/2018 DATE OF DISCHARGE: 12/27/2018 HISTORY OF PRESENT ILLNESS AND HOSPITAL COURSE: This is a 63-year-old female with past medical histo ry of autoimmune cirrhosis seen by dress designer on CellCept, history of stroke, ascites, hepatic ence phalopathy, degenerative joint disease, presented to the emergency department complaining of right up per quadrant pain for past 2 days. The patient was admitted recently secondary to right upper quadra nt pain from 12/12/2018 to 12/18/2018. At that time, she had ERCP times twice, had sphincterotomy an d placement of pancreatic stent, removal of the bile duct stone and placement of biliary stent. The patient was offered a cholecystectomy, but she refused. She wanted to see Dr. Perez as an outpatient. The patient was seen by Dr. Escobar. At this time, the patient on admission, vital signs were init ial blood pressure 91/58, pulse 74, afebrile. Labs show potassium 3.0, creatinine 1.19, LA, ALT, AST within normal limits. The patient had a CT of the abdomen and pelvis that showed cholelithiasis, ci rrhotic morphology evidence of portal hypertension, small recanalized umbilical vein. Moderate diffu se ascites. Stents were in position. The patient was initially admitted to telemetry unit as the pa tient became hypotensive. The patient received IV fluids, albumin. The patient was very dehydrated. I spoke with Dr. Escobar, who requested to see her, however, Dr. Escobar was busy and said that he would not take any calls over the weekend, so he requested that surgeon media relations manager, Dr. Guillermo was davis d. The patient was also started on IV antibiotics and albumin. The patient had a chest x-ray was do ne that was negative. The patient was seen by Dr. Josue for GI consultation. However, it could be secondary to gastroparesis rule out symptomatic gallstone. The patient was continued on Reglan, PPI, IV hydration. Diuretics were held. Kidney functions improved. ID consultation was obtained. Thei r recommendation was followed. The patient was put on Augmentin. The patient's condition was improv ing every day, started on regular diet, which she was tolerating. LFTs remained within normal limit. Currently, the patient was tolerating diet without any problems. No episodes of nausea, vomiting a nd stable to be discharged home. DISCHARGE MEDICATIONS: Continue home medications were: 1. Fosamax 70. 2. Atorvastatin 40. 3. Cipro 500 b.i.d. for 5 more days. 4. Flagyl 500 mg b.i.d. for 5 more days. 5. Midodrine 10 t.i.d. 6. Mycophenolate 500. 7. Omeprazole 40. 8. Zofran 4 mg, nausea, vomiting. 9. Lactobacillus t.i.d. for 10 days. The patient was instructed to follow up with PCP 1 to 2 weeks. The patient was instructed to follow up with Dr. Perez in 1 to 2 weeks; however, Dr. Perez had said that she should not undergo surgery. Th e patient was instructed to return to the ER if there are again chest pain, shortness of breath, abdo abigail pain, nausea, vomiting. Dictated By: REI MENCHACA/REI Conf#: [id number] DID#: [id number]
== END 2018-12-27 15:10 | disposition home or self-care (01) | DRG 445 ==
LOC: E/R 08:17 → INTOOBSV 12:43 → TEL 12:43 → EDBEDREQSVC 13:17 → CANRESERV 13:38 → EDBEDREQSVC 16:10 → OBSVTOIN 12-25 10:04 → 2NE 12-26 13:14
PROVIDERS: ADMIT Internal Medicine; ATTEND Internal Medicine
DX: K80.20 Calculus of gallbladder without cholecystitis without obstruction (principal); R18.8 Other ascites; K76.6 Portal hypertension; N17.9 Acute kidney failure, unspecified; I85.10 Secondary esophageal varices without bleeding; I95.9 Hypotension, unspecified; D89.9 Disorder involving the immune mechanism, unspecified; E11.65 Type 2 diabetes mellitus with hyperglycemia; K31.84 Gastroparesis; K74.69 Other cirrhosis of liver; M50.30 Other cervical disc degeneration, unspecified cervical region; I70.0 Atherosclerosis of aorta; E86.0 Dehydration; E87.6 Hypokalemia; D64.9 Anemia, unspecified; M81.0 Age-related osteoporosis without current pathological fracture; F32.9 Major depressive disorder, single episode, unspecified; E78.5 Hyperlipidemia, unspecified; I86.8 Varicose veins of other specified sites; Z96.89 Presence of other specified functional implants; Z79.4 Long term (current) use of insulin; Z87.440 Personal history of urinary (tract) infections; Z86.73 Personal history of transient ischemic attack (TIA), and cerebral infarction without residual deficits
CPT/HCPCS: 36415; 71045; 74177; 80048; 80053; 81001; 82150; 82607; 82728; 82746; 82962; 83540; 83605; 83690; 84484; 85025; 85045; 85610; 85730; 87081; 93005; 96361; 96374; 99217; G0378; C9113; J1815; J2405; J2543; J2765; J3480; J7030; J7042; P9045; P9047; Q9967

== ENCOUNTER 2019-03-29 08:18 | Emergency (ER) | payer OTHER ==
[~2019-03-29] VITALS: Wt 55.8 kg
[~2019-03-29 08:18] MED LIST changes: +AMOX1TAB10 PO; -CIPR500T4 PO; -METR500T PO
[2019-03-29 10:38] VITALS: BP 98/61; PULSE 68; RESP 16
[2019-03-29] MEDS ORDERED: CEPH-443 PO (10:41)
--- NOTE | 2019-03-29 10:44 | ERD ---
ER Documentation Chief Complaint Chief Complaint llq abd pain w nausea, hx of cirrhosis HPI 63-year-old female percents the emergency department complaining of abdominal pain. Patient states she was in her usual state of health until last 24 to 48 hours at which time she had a diffuse, nonspecific visceral abdominal discomfort that then became more of a right upper quadrant and epigastric pain. Its associate with nausea but no vomiting or diarrhea. She reports no fevers, chills, urinary symptoms or oncologic symptoms. She reports the pain is mild to moderate. Pain is otherwise non-provoked, nonspecific and she has had similar pain with her gallstones before. ROS All systems reviewed and are negative except as per history of present illness. Medications Home Meds Active Scripts Cephalexin* (Keflex*) 500 Mg Capsule, 500 MG PO QID for 5 Days, CAP Prov:RONAN AUGUSTIN 03/29/19 Amoxicillin/Potassium Clav (Amox-Clav 875-125 mg Tablet) 875-125 mg Tab, 875 MG PO BID for 5 Days, TAB Prov:REI FONSECA MD 12/27/18 Ondansetron Hcl* (Zofran*) 4 Mg Tab, 4 MG PO Q6H PRN for NAUSEA AND OR VOMITING for 30 Days, TAB Prov:REI FONSECA MD 12/18/18 Lactobacillus Acidophilus* (Lactinex*) 1 Tab Chew, 1 TAB PO TID for 10 Days, TAB Prov:FABI OSORIO 12/18/18 Reported Medications Escitalopram Oxalate* (Escitalopram Oxalate*) 10 Mg Tablet, 10 MG PO DAILY, #30 TAB 12/12/18 Atorvastatin* (Atorvastatin*) 40 Mg Tablet, 40 MG PO QHS, #30 TAB 12/12/18 Omeprazole* (Omeprazole*) 40 Mg Capsule.dr, 40 MG PO DAILY, #30 CAP 12/12/18 Midodrine* (Midodrine*) 10 Mg Tablet, 10 MG PO TID, TAB 12/12/18 Alendronate Sodium* (Fosamax*) 70 Mg Tablet, 70 MG PO Q SAT, #4 TAB 12/12/18 Mycophenolate Mofetil* (Mycophenolate Mofetil*) 500 Mg Tablet, 500 MG PO DAILY, TAB 12/12/18 Lactulose (Constulose) 10 Gm/15 Ml Solution, 15 ML PO NEEDED 12/12/18 Insulin Glargine,Hum.rec.anlog ([place] U-100) 100 Unit/1 Ml Insuln.pen, 20 UNIT SC QHS, EA CHECK IF BS WAS HIGH SHE CAN USE 30 UNITS 12/12/18 Allergies Allergies: Coded Allergies: No Known Allergy (Unverified , 12/23/18) PMhx/Soc History of Surgery: Yes (appendectomy, carpal tunnel surgery, , pancreatic stent) Anesthesia Reaction: No Hx Neurological Disorder: Yes (stroke) Hx Respiratory Disorders: No Hx Cardiac Disorders: No Hx Psychiatric Problems: No Hx Miscellaneous Medical Probl: Yes (liver cirhossis) Hx Alcohol Use: Yes (former) Hx Substance Use: No Hx Tobacco Use: No Smoking Status: Never smoker FmHx Noncontributory for chief complaint Physical Exam Vitals Vital Signs Date Temp Pulse Resp B/P (MAP) Pulse Ox O2 O2 Flow FiO2 Time Delivery Rate 03/29/19 98.0 68 16 98/61 (73) 97 Room Air 10:38 03/29/19 98.0 81 20 92/58 (69) 98 08:29 Physical Exam GENERAL: Thin, cachectic and chronically ill-appearing but in no acute distress HEENT: Pupils equal, round, and reactive to light. EOMI. There is no scleral icterus. NECK: C-spine is soft and supple, there is no meningismus. There is no cervical lymphadenopathy. LUNGS: Clear to auscultation bilaterally. There are no rales, wheezes or rhonchi. HEART: Regular rate and rhythm, no murmurs, clicks, rubs or gallops. ABDOMEN: Soft, mildly distended with a mild fluid wave. No tympany. No rebound or guarding. There is mild epigastric tenderness with no Pradhan sign EXTREMITIES: There is no peripheral cyanosis or edema. No focal swelling or erythema. NEURO: The patient moves all four extremities with 5/5 strength. Cranial nerves II - XII are intact. Normal gait. Alert and oriented SKIN: There is no apparent rash or petechiae. HEME/LYMPHATIC: There is no evidence of excessive bruising or lymphedema. PSYCHIATRIC: The patient does not appear anxious or depressed. Result Diagram: 03/29/1991803/29/19918 Results 24 hrs Laboratory Tests Test 03/29/19 09:15 03/29/19 09:19 Urine Color YELLOW Urine Clarity SLIGHTLY CLOUDY Urine pH 6.0 Urine Specific [place] 1.009 Urine Ketones NEGATIVE mg/dL Urine Nitrite NEGATIVE mg/dL Urine Bilirubin NEGATIVE mg/dL Urine Urobilinogen NEGATIVE mg/dL Urine Leukocyte Esterase 2+ Shawn/ul Urine Microscopic RBC 4 /HPF Urine Microscopic WBC 5 /HPF Urine Squamous Epithelial Cells FEW /HPF Urine Bacteria FEW /HPF Urine Hemoglobin NEGATIVE mg/dL Urine Glucose 1+ mg/dL Urine Total Protein NEGATIVE mg/dl White Blood Count 6.2 10^3/ul Red Blood Count 4.36 10^6/ul Hemoglobin 11.7 g/dl Hematocrit 35.5 % Mean Corpuscular Volume 81.4 fl Mean Corpuscular Hemoglobin 26.8 pg Mean Corpuscular Hemoglobin Concent 33.0 g/dl Red Cell Distribution Width 14.9 % Platelet Count 195 10^3/UL Mean Platelet Volume 9.6 fl Immature Granulocytes % 0.300 % Neutrophils % 65.6 % Lymphocytes % 24.5 % Monocytes % 7.6 % Eosinophils % 1.0 % Basophils % 1.0 % Nucleated Red Blood Cells % 0.0 /100WBC Immature Granulocytes # 0.020 10^3/ul Neutrophils # 4.1 10^3/ul Lymphocytes # 1.5 10^3/ul Monocytes # 0.5 10^3/ul Eosinophils # 0.1 10^3/ul Basophils # 0.1 10^3/ul Nucleated Red Blood Cells # 0.0 10^3/ul Sodium Level 135 mmol/L Potassium Level 4.7 mmol/L Chloride Level 91 mmol/L Carbon Dioxide Level 30 mmol/L Anion Gap 14 Blood Urea Nitrogen 54 mg/dl Creatinine 1.09 mg/dl Est Glomerular Filtrat Rate mL/min 51 mL/min Glucose Level 261 mg/dl Calcium Level 10.0 mg/dl Total Bilirubin 0.7 mg/dl Direct Bilirubin 0.00 mg/dl Indirect Bilirubin 0.7 mg/dl Aspartate Amino Transf (AST/SGOT) 43 IU/L Alanine Aminotransferase (ALT/SGPT) < 6 IU/L Alkaline Phosphatase 166 IU/L Total Protein 10.1 g/dl Albumin 4.7 g/dl Globulin 5.40 g/dl Albumin/Globulin Ratio 0.87 Lipase 217 U/L Procedures/MDM Patient was taken to a room, seen and evaluated. Comfort measures were initiated. Diagnostic tests were ordered and reviewed. 3 LEAD RHYTHM STRIP: Normal sinus rhythm without ectopy EK lead EKG reviewed by myself: Normal Sinus Rhythm Normal [place] and intervals No ST elevation, depression, or T wave inversion Impression: Normal EKG RADIOLOGY: Reviewed with the radiologist REEVALUATION: Diagnostic tests were appreciated discussed with the patient. Serial examinations remained benign. She remained comfortable appearing. MEDICAL DECISION MAKIN-year-old female with an underlying history of asci soniya presents to the emerge from with abdominal pain of uncertain etiology. Differential diagnosis entertained included complications of her ascites or her gallstone or other concerns. At this time, patient shows no evidence of significant SBP. She does have gallstones, but no evidence of significant cholecystitis or obstruction or pancreatitis. She concurrently has a urinary tract infection which may be causing the pain and given her underlying comorbid conditions, I will be placing her on antibiotics. Overall, she appears to be clinically well and appropriate for discharge at this time. Departure Diagnosis: Primary Impression: Cirrhosis Additional Impressions: UTI (urinary tract infection) Gallstone Additional Instructions: Consulte a jaramillo mdico para el seguimiento segn lo discutido. Lleve lennie copia de los resultados de jaramillo prueba, si corresponde, a esta visita de seguimiento. Consulte a jaramillo mdico o regrese aqu si augustin sntomas no mejoran shyam se esperaba. En cualquier momento, regrese al departamento de emergencias por cualquier cambio o empeoramiento en augustin sntomas. RONAN AUGUSTIN Mar 29, 2019 10:44
[2019-03-29] MEDS ORDERED: traMADol 50 MG TAB PO ONE (11:00)
== END 2019-03-29 11:25 | disposition home or self-care (01) ==
LOC: E/R 08:18
DX: K74.60 Unspecified cirrhosis of liver (principal); N39.0 Urinary tract infection, site not specified; K80.20 Calculus of gallbladder without cholecystitis without obstruction; Z79.4 Long term (current) use of insulin; Z86.73 Personal history of transient ischemic attack (TIA), and cerebral infarction without residual deficits
CPT/HCPCS: 36415; 71045; 76705; 80053; 81001; 83690; 85025; 93005; Z7502; Z7610

== ENCOUNTER 2019-04-25 10:28 | Day surgery (SDC) | payer OTHER ==
[~2019-04-25] VITALS: Ht 144.8 cm; Wt 57.3 kg
[2019-04-25] VITALS (20 sets, daily range): BP systolic 105–151; BP diastolic 54–78; PULSE 63–95; RESP 7–60; Ht 144.8 cm; Wt 57.3 kg
[~2019-04-25 10:28] MED LIST changes: +CEPH-443 PO; +CIPROFLOXACIN 400 MG in D5W 200 ML IVPB ONE; +INDOMETHACIN 50 MG SUPP PR ONE
--- NOTE | 2019-04-25 11:35 | HPN ---
Date/Time of Note Date/Time of Note DATE: 04/25/19 TIME: 11:35 Interval H&P Admission Note Pt. seen H&P reviewed: No system changes LAURA RAMIREZ MD Apr 25, 2019 11:35
--- NOTE | 2019-04-25 11:37 | PREAC ---
Date/Time of Note Date/Time of Note DATE: 04/25/19 TIME: 11:33 Anesthesia Eval and Record Evaluation Time Pre-Procedure Interview DATE: 04/25/19 TIME: 11:33 Age 63 Sex female NPO: 8 hrs Preoperative diagnosis CBD Stent Planned procedure ERCP stent removal Past Medical History Past Medical History: Includes (hx bowel obstruction) Cardio: Other (Hypotension) Endo: Diabetes (BG 121 today) Neuro: Other (TIA) Hepatic: Hepatitis (autoimmune hepatitis), Cirrhosis Surgery & Anesthesia Issues No known issue (ERCP) Meds Anticoagulation: No Beta Darío within 24 hr: No Reason Beta Darío not given: Pt. not on B-Darío Active Scripts Ondansetron Hcl* (Zofran*) 4 Mg Tab, 4 MG PO Q6H PRN for NAUSEA AND OR VOMITING for 30 Days, TAB Prov:REI FONSECA MD 12/18/18 Reported Medications Omeprazole* (Omeprazole*) 40 Mg Capsule.dr, 40 MG PO DAILY, #30 CAP 12/12/18 Midodrine* (Midodrine*) 10 Mg Tablet, 10 MG PO TID, TAB 12/12/18 Alendronate Sodium* (Fosamax*) 70 Mg Tablet, 70 MG PO Q SAT, #4 TAB 12/12/18 Mycophenolate Mofetil* (Mycophenolate Mofetil*) 500 Mg Tablet, 500 MG PO DAILY, TAB 12/12/18 Lactulose (Constulose) 10 Gm/15 Ml Solution, 15 ML PO NEEDED 12/12/18 Insulin Glargine,Hum.rec.anlog (Basaglar Kwikpen U-100) 100 Unit/1 Ml Ins uln.pen, 20 UNIT SC QHS, EA CHECK IF BS WAS HIGH SHE CAN USE 30 UNITS 12/12/18 Discontinued Reported Medications Escitalopram Oxalate* (Escitalopram Oxalate*) 10 Mg Tablet, 10 MG PO DAILY, #30 TAB 12/12/18 Atorvastatin* (Atorvastatin*) 40 Mg Tablet, 40 MG PO QHS, #30 TAB 12/12/18 Discontinued Scripts Cephalexin* (Keflex*) 500 Mg Capsule, 500 MG PO QID for 5 Days, CAP Prov:RONAN AUGUSTIN 03/29/19 Amoxicillin/Potassium Clav (Amox-Clav 875-125 mg Tablet) 875-125 mg Tab, 875 MG PO BID for 5 Days, TAB Prov:REI FONSECA MD 12/27/18 Lactobacillus Acidophilus* (Lactinex*) 1 Tab Chew, 1 TAB PO TID for 10 Days, TAB Prov:FABI OSORIO NP 12/18/18 Meds reviewed: Yes Allergies Coded Allergies: No Known Allergy (Unverified , 04/25/19) Allergies Reviewed: Yes Labs/Studies Labs Reviewed: Reviewed by anesthesiologist Result Diagram: 04/25/19 1111 Laboratory Tests 04/25/19 11:11 test: N/A Studies: ECG (nsr), CXR (no acute disease) Pre-procedure Exam Last vitals Vital Signs Date Temp Pulse Resp B/P (MAP) Pulse Ox O2 O2 Flow FiO2 Time Delivery Rate 04/25/19 97.7 74 16 120/72 99 Room Air 11:24 (88) Airway: Adequate mouth opening, Adequate thyromental dist Mallampati: Mallampati II Teeth: Abnormal (multiple missing teeth) Lung: Normal Heart: Normal ASA Physical Status ASA physical status: 3 Emergency: None Planned Anesthetic General/MAC: ETT Pre-operative Attestations Prior to commencing anesthesia and surgery, the patient was re-evaluated, there was verification of: *The patient's identity *The results of appropriate recent lab work and preoperative vital signs *The above evaluation not changing prior to induction *Anesthetic plan, risk benefits, alternative and complications discussed with patient/family; questions answered; patient/family understands, accepts and wishes to proceed. BLAZE THIBODEAUX Apr 25, 2019 11:37
[2019-04-25] MEDS ORDERED: ROCURONIUM 50 MG INJ ONE (11:42)
[2019-04-25] MEDS ORDERED: PROPOFOL 20 ML ONE (11:42)
[2019-04-25] MEDS ORDERED: GLYCOPYRROLATE 0.4 MG INJ ONE (11:42)
[2019-04-25] MEDS ORDERED: CEFAZOLIN 1 GM INJ ONE (11:42)
[2019-04-25] MEDS ORDERED: NEOSTIGMINE 3 MG/3 ML SYRINGE ONE (11:42)
[2019-04-25] MEDS ORDERED: MIDAZOLAM 1 MG/ML 2 ML INJ ONE (11:43)
[2019-04-25] MEDS ORDERED: FENTAnyl 50 MCG/ML VIAL ONE (11:43)
[2019-04-25] MEDS ORDERED: ONDANSETRON 4 MG INJ ONE (11:43)
[2019-04-25] MEDS ORDERED: DEXAMETHASONE 4 MG/ML 5 ML INJ ONE (11:43)
[2019-04-25] MEDS ORDERED: FENTAnyl 50 MCG/ML VIAL IV PRN ×3 (12:30)
[2019-04-25] MEDS ORDERED: LABETALOL HCL 20MG INJ IV PRN (12:30)
[2019-04-25] MEDS ORDERED: ONDANSETRON 4 MG INJ IV PRN (12:30)
[2019-04-25] MEDS ORDERED: hydrALAzine 20 MG INJ IV PRN (12:30)
[2019-04-25] MEDS ORDERED: IPRATROPIUM (NEB) 0.5 MG/2.5 ML AMP HHN PRN (12:30)
[2019-04-25] MEDS ORDERED: MEPERIDINE 25 MG INJ IV PRN (12:30)
[2019-04-25] MEDS ORDERED: DIPHENHYDRAMINE 50 MG INJ IV PRN (12:30)
[2019-04-25] MEDS ORDERED: EPHEDrine 25 MG/5 ML SYG IV PRN (12:30)
[2019-04-25] MEDS ORDERED: MIDAZOLAM 1 MG/ML 2 ML INJ IV PRN (12:30)
[2019-04-25] MEDS ORDERED: TRIMETHOBENZAMIDE 100 MG/ML VIAL IM PRN (12:30)
[2019-04-25] MEDS ORDERED: morphine 2 MG INJ IV PRN ×3 (12:30)
[2019-04-25] MEDS ORDERED: ALBUTEROL 0.083% (NEB) 2.5 MG/3 ML AMP HHN PRN (12:30)
--- NOTE | 2019-04-25 12:39 | PAC ---
Date/Time of Note Date/Time of Note DATE: 04/25/19 TIME: 12:38 Post-Anesthesia Notes Post-Anesthesia Note Last documented vital signs Vital Signs Date Temp Pulse Resp B/P (MAP) Pulse Ox O2 O2 Flow FiO2 Time Delivery Rate 04/25/19 97.7 74 16 120/72 99 Room Air 11:24 (88) Activity: WNL Respiratory function: WNL Cardiovascular function: WNL Mental status: Baseline Pain reasonably controlled: Yes Hydration appropriate: Yes Nausea/Vomiting absent: Yes Colton Feliz M.D. Apr 25, 2019 12:39
[2019-04-25] MEDS ORDERED: NALBUPHINE IV PRN (13:30)
[2019-04-25] MEDS ORDERED: ONDANSETRON 4 MG INJ IV STA (15:01)
[2019-04-25] MEDS ORDERED: SOD CHLORIDE 0.9% 1,000 ML IV SCH (15:30)
--- NOTE | 2019-04-25 17:19 | GILP ---
DATE OF PROCEDURE: 04/25/2019 A 63-year-old female undergoing this procedure for the removal of the stent and also to do the chola ngiogram to make sure that no stone is left behind. The risk of the procedure, related and unrelated complications, anesthetic risks, alternatives discussed. Informed consent was obtained. DESCRIPTION OF PROCEDURE: The patient was brought to the GI lab, intubated and placed in a prone pos ition. ERCP scope passed with much ease into esophagus and advanced further down into stomach and du odenum. Ampulla identified. Stent was identified. It was clogged with the mud or the cholesterol d ebris. Stent was removed successfully. Biliary cholangiogram did obtained, multiple filling defects were seen with the 12 mm balloon the pigmented multiple small stones and also cholesterol mud remove d. Ten passes were made, 12 mm balloon would exit easily and the final cholangiogram appeared negati ve. Excellent drainage was established. The scope was removed with good patient tolerance. The total fluoro time was 3 seconds. IMPRESSION: 1. Removal of stent. 2. Removal of multiple pigmented stones 4 to 5 mm in diameter and large quantity of mud. 3. No stone was left behind. Excellent drainage established. 4. Fluoroscopy time was 3 seconds. PLAN: Monitor LFT. Follow up in the office in 2 weeks. The patient also was given antibiotic prior to the procedure. Dictated By: LAURA JOHNSTON/REI Conf#: [id number] DID#: [id number] CC: LAURA RAMIREZ MD;*EndCC*
== END 2019-04-25 16:39 | disposition home or self-care (01) ==
LOC: SDS 10:28
PROVIDERS: ATTEND Internal Medicine Gastroenterology
DX: K80.50 Calculus of bile duct without cholangitis or cholecystitis without obstruction (principal); R10.9 Unspecified abdominal pain; E11.9 Type 2 diabetes mellitus without complications; K74.60 Unspecified cirrhosis of liver; B18.9 Chronic viral hepatitis, unspecified
CPT/HCPCS: 43264; 43275; 74330; 80048; 82962; 85025; 85610; 85730; 93005; J0690; J1100; J1200; J2250; J2405; J2710; J3010; J3250; Z7512; Z7610